=== PATIENT | female | born 1955 | race Caucasian/White ===

== ENCOUNTER 2023-08-21 09:21 | Outpatient (OUT) | payer MEDICARE, SELFPAY ==
[2023-08-21 09:49] LABS: Erythrocyte Sedimentation Rate 60 mm/hr (<=30)
[2023-08-21 10:36] LABS: C Reactive Protein <0.2 mg/dL (<=1.0)
== END 2023-08-21 09:22 | disposition home or self-care (01) ==
LOC: LAB 09:22
PROVIDERS: PCP Family Medicine; Visit Provider Registered Nurse
DX: M35.3 Polymyalgia rheumatica (principal); R76.0 Raised antibody titer; Z79.899 Other long term (current) drug therapy
CPT/HCPCS: 36415; 85652; 86140

== ENCOUNTER 2023-08-28 13:57 | Outpatient (OUT) | payer MEDICARE, SELFPAY ==
--- NOTE | 2023-08-28 14:07 | MM_ITS ---
Patient: MIKE ALFRED Exam Date: 08/28/2023 : 1955 Gender:F Ordering : DR ANTHONY SAINI M.D. Admission #: [id number] Family : DR Grace Dyer M.D. Order #: [id number] CLICK HERE TO VIEW EXAM RADIOLOGY REPORT PROCEDURE: MM TOMOSYNTHESIS SCREENING BI COMPARISON: MG MAMM SCREEN 3D FAITH CAD, 07/02/2022. MG MAMM SCREEN 3D FAITH CAD, 06/28/2021. MG MAMM SCREEN FAITH W CAD, 06/27/2020. MG MAMM RT UNI W CAD DIG, 01/18/2014. INDICATIONS: Screening Calculator Name NCI Breast Cancer Risk Assessment Tool 5 Year Breast Cancer Risk n/a% Lifetime Breast Cancer Risk n/a% Personal Breast Cancer Yes, Lt breast cancer, 2002 Personal Ovarian Cancer No Treatments Lt mastectomy, Radiation, Chemotherapy, Arimidex x 5 years Family Cancers Sister with breast cancer at age 45; Sister with ovarian cancer at age 63; Sister with uterine cancer at age 63. LOCATION: [facility] BREAST COMPOSITION: Scattered areas fibroglandular density. FINDINGS: DIAGNOSTIC CATEGORY 2--BENIGN FINDING: RIGHT BREAST: No significant suspicious finding. No significant change has occurred. LEFT BREAST: No significant suspicious finding. Scattered benign-appearing calcifications are present. No significant change has occurred. RECOMMENDATIONS: ROUTINE MAMMOGRAM AND CLINICAL EVALUATION IN 12 MONTHS. PLEASE NOTE: A NORMAL MAMMOGRAM DOES NOT EXCLUDE THE POSSIBILITY OF BREAST CANCER. A CLINICALLY SUSPICIOUS PALPABLE LUMP SHOULD BE BIOPSIED. Dictated by: Humble Patterson M.D. on 09/02/2023 at 12:56 Approved by: Humble Patterson M.D. on 09/02/2023 at 12:59
== END 2023-08-28 13:58 | disposition home or self-care (01) ==
LOC: MAMMO 13:57
PROVIDERS: PCP Family Medicine; Visit Provider Internal Medicine Hematology & Oncology
DX: Z12.31 Encounter for screening mammogram for malignant neoplasm of breast (principal); Z80.3 Family history of malignant neoplasm of breast; Z80.41 Family history of malignant neoplasm of ovary; Z80.49 Family history of malignant neoplasm of other genital organs
CPT/HCPCS: 77063; 77067

== ENCOUNTER 2023-12-03 10:53 | Outpatient (OUT) | payer MEDICARE, SELFPAY ==
--- OUTSIDE RECORDS SUMMARY | 2023-12-03 10:57 | XMS_ITS | CCD ---
Author Name Unknown Address [address] [place] [address] Organization [facility] Care Team Providers Care Chipper Name Role Phone Florinda Flowers Primary Care Provider [phone] MD Florinda Flowers Primary Care Provider ROSA Milton Attending Provider MD Ascencion Ortiz Attending Provider [phone] Teetee Rizvi Unavailable MD Florinda Flowers Primary Care Provider [phone] MD Teetee Rizvi Attending Provider Florinda Flowers Unavailable Unavailable Unavailable Dr. Florinda Flowers Primary Care Unav ailable Goyal, Dr. Lei Velázquez Referring Britt vailable Goyal, Dr. Lei Velázquez Attending Britt vailable Elizabeth Wyatt Unavailable Florinda Flowers Unavailable ANGEL, DR DAVIS Attending Unavailable ANGEL, DR DAVIS Admitting Unavailable LIONEL, DR FLORINDA Arriola Primary Care Unavailable ANGEL, DR DAVIS Consulting Unavailable YENY, DR CRUZ Attending Unavailable YENY, DR CRUZ Admitting Unavailable LIONEL, DR FLORINDA Arriola Primary Care Unavailable YENY, DR CRUZ Consulting Unavailable RUBI, DR EDWARD Mae Consulting Unavailable MISC, DR MONGE Admitting Unavailable MISC, DR MONGE Consulting Unavailable LIONEL, DR FLORINDA Arriola Primary Care Unavailable MISC, DR MONGE Attending Unavailable LIONEL, DR FLORINDA Arriola Consulting Unavailable FLOWERS, DR FLORINDA Arriola Attending Unavailable FLOWERS, DR FLORINDA Arriola Admitting Unavailable FLOWERS, DR FLORINDA Arriola Primary Care Unavailable MISC, DR MONGE Attending Unavailable MISC, DR MONGE Admitting Unavailable MISC, DR MONGE Consulting Unavailable LIONEL, DR FLORINDA Arriola Primary Care Unavailable GRILLIS ., DR REHANA Arriola Admitting Unavaila ble GRSERENA ., DR REHANA Arriola Consulting Unavaila ble FLOWERS, DR FLORINDA Arriola Primary Care Unavailable GRILLIS ., DR REHANA Arriola Attending Unavaila ble GRILLIS ., DR REHANA Arriola Consulting Unavaila ble GRCLAUDIOS ., DR REHANA Arriola Attending Unavaila ble FLOWERS, DR FLORINDA Arriola Primary Care Unavailable GRILLIS ., DR REHANA Arriola Admitting Unavaila ble ISABEL RAMIREZ Consulting Unavailable FILUTZGABRIELLE Arriola Consulting Unavailable GOYAL, DR LEI Nicole Attending Unavailable GOYAL, DR LEI Nicole Admitting Unavailable FLOWERS, DR FLORINDA Arriola Primary Care Unavailable GOYAL, DR LEI Nicole Consulting Unavailable Allergies Allergy Classification Reported Allergen(s) Allergy Type Date of Onset Reaction(s) Facility (17 sources) Acetaminophen / oxyCODONE; Translations: [Percocet TABS] Drug Allergy 5 GI Upset [facility] (4 sources) Sulfa Dyne Drug Allergy 2 Rash [facility] (6 sources) fentaNYL Drug Allergy 7 [facility] (6 sources) terbinafine Drug Allergy 7 Rash [facility] (2 sources) Penicillins Drug Allergy 1 [facility] (4 sources) Penicillin V Drug Allergy Unknown [facility] Other (1 source) sulfaSALAzine Drug Allergy Unknown [facility] Other (12 sources) terbinafine; Translations: [Lamisil] Drug Allergy 4 Unknown [facility] (1 source) oxyCODONE Drug Allergy 2 [facility] (1 source) Sulfonamides (Antibiotic) Allergy to substance 2 [facility] (2 sources) Penicillins; Translations: [Penicillins] Allergy to drug (finding) [facility] 600 DO Work Phone: (2 sources) Sulfur; Translations: [Sulfur] Drug Allergy [facility] 600 DO Work Phone: (2 sources) Lamisil CREA; Translations: [Lamisil CREA] Allergy to drug (finding) [facility] 600 DO Work Phone: (3 sources) Sulfonamide Drug allergy Unknown [facility] Other (8 sources) Penicillin; Translations: [penicillin] Drug Allergy Unknown [facility] (7 sources) Substance with sulfonamide structure and antibacterial mechanism of action (substance) Drug allergy Unknown [facility] Other (1 source) Acetaminophen / oxyCODONE Drug Allergy 4 [facility] (1 source) Sulfonamides (Antibiotic) Drug allergy (disorder) 4 [facility] (1 source) terbinafine Drug Allergy 7 Unknown [facility] Other Medications Current Medications Medication Drug Class(es) Dates Sig (Normalized) Sig (Original) 8 hr acetaminophen 650 mg extended release oral tablet (11 sources) take 2 tablets by mo uth every eight hours take 2 tablets by mo uth every eight hours as needed Acetaminophen ER 650 MG 2 tablets as nee ded Orally every 8 hrs Active cholecalciferol 0.05 mg oral capsule (1 source) Vitamin D take 1 capsule by mouth every twenty-four hours fluconazole 100 mg oral tablet (7 sources) Azole Antifungal Start: 12-24-19 23 take 1 tablet by mouth every twenty-four hours ondansetron 4 mg oral tablet (4 sources) Serotonin-3 Receptor Antagonist take 1 tablet by mouth three times daily as needed for nausea Zofran 4 MG 1 tablet Orally 3 times a day prn nausea Active predniSONE 20 mg oral tablet (18 sources) Start: 09-30-20 22 take 1 tablet by mouth every twelve hours predniSONE 20 MG 1 tablet Orally 2 times a day for 5 day(s) Sep, Active Start: 07-04-2022 take 5 mg by mouth once daily Prednisone Active 5 MG PO Daily July 04, 2022 12:00am Start: 02-01-2022 take 2 tablets by mo uth once daily predniSONE 5 MG Oral Tablet TAKE 2 TABLETS BY MOUTH ONCE DAILY OR DIRECTED Quantity: 60 Refills: 0 Ordered: 06-Jun-2022 DO Start : 01-Feb-2022 Active Vitamin D 50 MCG (1999) (10 sources) take 1 capsule by mouth once yonatan ly take 1 capsule by mouth once yonatan ly Vitamin D 50 MCG (1999) 1 capsule Orally Once a day Active zolpidem tartrate 10 mg oral tablet (14 sources) gamma-Aminobutyric Acid-ergic Agonist Start: 10-29-2023 take 1 tablet by mouth every twenty-four hours Ambien 10 MG 1 tablet at bedtime as needed Orally Once a day for 90 days Oct, Active Start: 08-05-2023 take 1 tablet by dalia th every twenty-four hours Start: 04-15-2023 take 1 tablet by dalia th every twenty-four hours Ambien 10 MG 1 tablet at bedtime as needed Orally Once a day for 90 days Apr, Active Start: 12-24-2022 take 1 tablet by dalia th every twenty-four hours Ambien 10 MG 1 tablet at bedtime as needed Orally Once a day for 90 days Dec, Active Start: 05-31-2022 take 1 tablet by dalia th at bedtime as needed Zolpidem Tartrate 10 MG Oral Tablet TAKE 1 TABLET AT BEDTIME NEEDED. Quantity: 0 Refills: 0 Ordered: 31-May-2022 DO Start : 31-May-2022 Active Start: 07-18-2012 take 1 tablet by mouth once da fer ZOLPIDEM 10 mg Tab Take 10 mg by mouth once daily. 0 07/18/2012 Active Comment on above: Take 10 mg by mouth once daily. Completed/Discontinued Medications Medication Drug Class(es) Dates Sig (Normalized) Sig (Original) alendronic acid 70 mg oral tablet (17 sources) Bisphosphonate Start: 02-16-2022 take 1 tablet by mouth every week Alendronate Sodium 70 MG Oral Tablet TAKE 1 TABLET BY MOUTH ONCE A WEEK Quantity: 12 Refills: 0 Ordered: 07-May-2022 DO Start : 16-Feb-2022 Active Start: 07-13-2012 ALENDRONATE 70 mg tablet amLODIPine 5 mg oral tablet (16 sources) Dihydropyridine Calcium Channel Rosario Start: 02-18-2018 take 1 tablet by mouth once daily amLODIPine Besylate 5 MG Oral Tablet Take 1 tablet daily Quantity: 90 Refills: 3 Ordered: 31-May-2022 DO Start : 31-May-2022 Active Comment on above: Take 5 mg by mouth. ergocalciferol 2000 unt oral tablet (3 sources) Provitamin D2 Compound Start: 06-09-2013 take 1 tablet by mouth once daily ergocalciferol, vitamin D2, 2,000 unit Tab Indications: Personal history of malignant neoplasm of breast , Creatinine elevation Take 1 tablet by mouth once daily. 30 tablet 3 06/09/2013 Active Comment on above: Take 1 tablet by dalia once daily. ezetimibe 10 mg / simvastatin 40 mg oral tablet (3 sources) HMG-CoA Reductase Inhibitor, Dietary Cholesterol Absorption Inhibitor Start: 08-23-2006 VYTORIN 10/40 10 MG-40 MG TAB Take one(1) tablet daily. 0 08/23/2006 Active Comment on above: Take one(1) tablet d aily. hydrALAZINE hydrochloride 50 mg oral tablet (16 sources) Arteriolar Vasodilator Start: 02-15-2018 take 1 tablet by mouth once daily hydrALAZINE HCl - 50 MG Oral Tablet Take 1 tablet daily Quantity: 90 Refills: 3 Ordered: 31-May-2022 DO Start : 31-May-2022 Active Comment on above: Take 50 mg by mouth. hydroCHLOROthiazide 12.5 mg / valsartan 160 mg oral tablet (3 sources) Thiazide Diuretic, Angiotensin 2 Receptor Rosario Start: 07-01-2012 DIOVAN HCT 160-12.5 mg per tablet metoprolol tartrate 25 mg oral tablet (18 sources) beta-Adrenergic Rosario Start: 04-27-2022 take 1 tablet by mouth twice daily Metoprolol Tartrate 25 MG Oral Tablet TAKE 1 TABLET TWICE DAILY. Quantity: 180 Refills: 3 Ordered: 27-Apr-2022 DO Start : 27-Apr-2022 Active Start: 08-21-2012 METOPROLOL TAR TRATE, SHORT ACTING, 50 mg tablet MULTIVITAMIN TAB (4 sources) Start: 10-09-2005 MULTIVITAMIN T AB Take one(1) tablet daily. 0 10/09/2005 Active Comment on above: Take one(1) tablet d aily. rosuvastatin calcium 40 mg oral tablet (15 sources) HMG-CoA Reductase Inhibitor Start: 12-09-2020 take 1 tablet by mouth once daily Rosuvastatin Calcium 40 MG Oral Tablet TAKE 1 TABLET DAILY. Quantity: 90 Refills: 3 Ordered: 20-Jul-2022 Lei Goyal MD Start : 31-May-2022 Active Problems Active Problems Problem Classification Problem Date Documented Da te Episodic/Chronic Anxiety disorders (4 sources) Anxiety disorder; Translations: [Anxiety disorder, unspecified] Onset: 08-08-2015 Chronic Cancer of breast (5 sources) Malignant neoplasm of upper-outer quadrant of female breast; Translations: [Malignant neoplasm of upper-outer quadrant of left female breast] 09-15-2012 Chronic Cancer of breast (9 sources) History of malignant neoplasm of breast; Translations: [Personal history of malignant neoplasm of breast] Onset: 08-13-2005 08-13-2005 Episodic Cardiac dysrhythmias (2 sources) Sinus bradycardia; Translations: [Other specified cardiac dysrhythmias] Episodic Chronic kidney disease (20 sources) Chronic kidney disease stage 3A ; Translations: [Chronic kidney disease, stage 3a] Chronic Disorders of lipid metabolism (14 sources) Hyperlipidemia; Translations: [Other and unspecified hyperlipidemia] Onset: 09-09-2014 Chronic Esophageal disorders (1 source) 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; Translations: [BARRETTS ESOPHAGUS W/O DYSPLASIA] Onset: 11-23-2022 Chronic Essential hypertension (20 sources) Essential hypertension; Translations: [Essential (primary) hypertension] Onset: 06-12-2022 Resolved: 06-12-2022 Chronic Genitourinary symptoms and ill-defined conditions (4 sources) Hematuria, unspecified; Translations: [Proteinuria, unspecified] Onset: 06-12-2022 Resolved: 06-12-2022 Episodic Immunizations and screening for infectious disease (20 sources) Other specified abnormal immunological findings in serum; Translations: [Contact with and (suspected) exposure to other viral communicable diseases] Onset: 06-12-2022 Resolved: 06-12-2022 Episodic Inflammatory diseases of female pelvic organs (4 sources) Acute vaginitis; Translations: [Acute vaginitis] Episodic Influenza (5 sources) Influenza due to other identified influenza virus with other respiratory manifestations; Translations: [Influenza due to Influenza A virus with upper respiratory signs] Episodic Miscellaneous mental health disorders (10 sources) Primary insomnia; Translations: [Primary insomnia] Chronic Osteoarthritis (5 sources) Unspecified osteoarthritis, unspecified site; Translations: [Osteoarthritis] Onset: 07-03-2022 Chronic Osteoporosis (4 sources) Primary osteoporosis; Translations: [Age-related osteoporosis without current pathological fracture] Chronic Other aftercare (2 sources) alf (current) use of non-steroidal anti-inflammatories (NSAID) Onset: 06-12-2022 Resolved: 06-12-2022 Episodic Other aftercare (1 source) Other salvage determiner (current) drug therapy; Translations: [OTH MEDICAL DATA ANALYST CURRENT DRUG THERAPY] Onset: 02-24-2023 Episodic Other circulatory disease (4 sources) Elevated blood-pressure reading without diagnosis of hypertension; Translations: [Elevated blood-pressure reading, without diagnosis of hypertension] Episodic Other connective tissue disease (1 source) History of repair of hip joint; Translations: [Presence of unspecified artificial hip joint] 09-17-2012 Chronic Other connective tissue disease (5 sources) Polymyalgia rheumatica; Translations: [POLYMYALGIA RHEUMATICA] Onset: 07-03-2022 Chronic Other connective tissue disease (1 source) Presence of left artificial knee joint; Translations: [PRESENCE LEFT ARTIFICIAL KNEE JOINT] Onset: 11-23-2022 Chronic Other connective tissue disease (4 sources) Polymyalgia rheumatica; Translations: [Polymyalgia rheumatica] Chronic Other connective tissue disease (4 sources) Neuralgia; Translations: [Neuralgia and neuritis, unspecified] Episodic Other endocrine disorders (4 sources) Hypoglycemia; Translations: [Hypoglycemia, unspecified] Onset: 05-28-2016 Chronic Other gastrointestinal disorders (4 sources) Abnormal feces; Translations: [Other fecal abnormalities] Episodic Other injuries and conditions due to external causes (4 sources) History of fall; Translations: [History of falling] Episodic Other lower respiratory disease (4 sources) Cough; Translations: [Cough, unspecified] Episodic Other nervous system disorders (4 sources) Skin sensation disturbance; Translations: [Other disturbances of skin sensation] Episodic Other nutritional; endocrine; and metabolic disorders (4 sources) Obesity; Translations: [Obesity, unspecified] Chronic Other nutritional; endocrine; and metabolic disorders (4 sources) Body mass index 30+ - obesity; Translations: [Body mass index (BMI) 30.0-30.9, adult] Chronic Other nutritional; endocrine; and metabolic disorders (6 sources) Overweight; Translations: [Overweight] Episodic Other nutritional; endocrine; and metabolic disorders (4 sources) Other symptoms and signs concerning food and fluid intake; Translations: [Nutritional status: food and fluid intake] Episodic Other upper respiratory infections (4 sources) Chronic sinusitis; Translations: [Chronic sinusitis, unspecified] Chronic Unclassified (3 sources) History of repair of hip joint; Translations: [Hip joint replacement by other means] 09-17-2012 Unclassified (1 source) CONTACT W/AND (SUSP) EXPOS COVID-19; Translations: [CONTACT W/AND (SUSP) EXPOS COVID-19] Onset: 11-26-2022 Past or Other Problems Problem Classification Problem Date Documented Da te Episodic/Chronic Allergic reactions (4 sources) Urticaria, unspecified; Translations: [Urticaria] Onset: 03-08-2014 Episodic Chronic kidney disease (3 sources) Chronic kidney disease Onset: 06-12-2022 Resolved: 06-12-2022 Diseases of mouth; excluding dental (4 sources) Disorder of salivary gland; Translations: [Other diseases of salivary glands] Onset: 09-09-2014 Episodic Mycoses (9 sources) Candidiasis of skin and nail; Translations: [Tinea cruris] Onset: 03-24-2014 Episodic Open wounds of head; neck; and trunk (4 sources) Open wound of anterior abdominal wall with complication; Translations: [Unspecified open wound of abdominal wall, unspecified quadrant without penetration into peritoneal cavity, initial encounter] Onset: 10-01-2005 10-01-2005 Episodic Other and unspecified benign neoplasm (4 sources) Personal history of colonic polyps; Translations: [PERSONAL HISTORY OF COLONIC POLYPS] Onset: 2022 Episodic Other and unspecified benign neoplasm (1 source) Benign neoplasm of sigmoid colon; Translations: [BENIGN NEOPLASM OF SIGMOID COLON] Onset: 11-23-2022 Episodic Other bone disease and musculoskeletal deformities (4 sources) Bone density finding; Translations: [Other specified disorders of bone density and structure, unspecified site] Onset: 03-08-2014 Episodic Other screening for suspected conditions (not mental disorders or infectious disease) (4 sources) Encounter for screening mammogram for malignant neoplasm of breast; Translations: [ENC SCR MAMMO MALIG NEOPLASM BREAST] Onset: 07-02-2022 Episodic Residual codes; unclassified (1 source) Acquired absence of left breast and nipple; Translations: [ACQUIRED ABSENCE LT BREAST AND NIPPLE] Onset: 11-23-2022 Episodic Residual codes; unclassified (1 source) Family history of malignant neoplasm of breast; Translations: [FAMILY HX MALIG NEOPLASM OF BREAST] Onset: 07-03-2022 Episodic Residual codes; unclassified (1 source) Family history of malignant neoplasm of ovary; Translations: [FAM HX MALIGNANT NEOPLASM OVARY] Onset: 07-03-2022 Episodic Residual codes; unclassified (1 source) Family history of malignant neoplasm of other genital organs; Translations: [FAM HX MALIG NEOPLSM OTH GENIT ORGN] Onset: 07-03-2022 Episodic Residual codes; unclassified (4 sources) Postmenopausal state; Translations: [Asymptomatic menopausal state] Onset: 08-05-2015 Episodic Residual codes; unclassified (4 sources) Insomnia; Translations: [Insomnia, unspecified] Onset: 03-08-2014 Episodic Residual codes; unclassified (4 sources) Family history of breast cancer; Translations: [Family history of malignant neoplasm of breast] Onset: 03-08-2014 Episodic Screening and history of mental health and substance abuse codes (3 sources) Ex-smoker; Translations: [Personal history of tobacco use] Onset: 11-23-2022 Episodic Spondylosis; intervertebral disc disorders; other back problems (4 sources) Disorder of sacrococcygeal spine; Translations: [Sacrococcygeal disorders, not elsewhere classified] Onset: 05-19-2018 Episodic Results Test Name Value Interpretation Reference Range Facility ANTICARDIOLIPIN AB (AKASH) IGA /IGG/IGMon 02-21-2023 Anticardiolipin Ab,IgA,Qn <9 Normal 0-11 [facility] Comment on above: Result Comment: Nega tive: <12 Indeterminate: 12 - 20 Low-Med Positive: >20 - 80 High Positive: >80 Performed By: #### A CAQUAN #### [facility] [address] [address] [address] Myrna Antony Anticardiolipin Ab,IgG,Qn <9 Normal 0-14 [facility] Comment on above: Result Comment: Nega tive: <15 Indeterminate: 15 - 20 Low-Med Positive: >20 - 80 High Positive: >80 Performed By: #### A CAQUAN #### [facility] [address] [address] [address] Myrna Antony Anticardiolipin Ab,IgM,Qn 22 MPL U/mL Critically high 0-12 [facility] Comment on above: Result Comment: Nega tive: <13 Indeterminate: 13 - 20 Low-Med Positive: >20 - 80 High Positive: >80 Performed By: #### A BHAVESH #### [facility] [address] [place] [address] Dr. Myrna Antony CRPon 02-20-2023 CRP [Mass/Vol] mg/L Normal <=1.0 [facility] Comment on above: Performed By: #### C RP #### [facility] [address] [place] [address] Dr. Myrna Antony SED RATE WESTERGRENon 2022 SED RATE 32 mm/hr Critically high <=30 [facility] Comment on above: Performed By: #### A BHAVESH #### [facility] [address] [place] [address] Dr. Myrna Antony CBC AUTO DIFFon 12-24-2022 BASO # 0.0 103/ul Normal 0.0-0.1 [facility] Comment on above: Performed By: #### C BC #### [facility] [address] [place] [address] Dr. Myrna Antony Basophils/100 WBC (Bld) 0.5 % Normal 0.2-2.0 [facility] Comment on above: Performed By: #### C BC #### [facility] [address] [place] [address] Dr. Myrna Antony EO # 0.3 103/ul Normal 0.0-0.7 [facility] Comment on above: Performed By: #### C BC #### [facility] [address] [place] [address] Dr. Myrna Antony Eosinophils/100 WBC (Bld) 3.9 % Normal 0.9-7.0 [facility] Comment on above: Performed By: #### C BC #### [facility] [address] [place] [address] Dr. Myrna Antony Erythrocyte distribution width (RBC) [Ratio] 13.6 % Normal 11.0-15.0 [facility] Comment on above: Performed By: #### C BC #### [facility] [address] [place] [address] Dr. Myrna Antony Hematocrit (Bld) [Volume fraction] 40.4 % Normal 36.0-48.0 [facility] Comment on above: Performed By: #### C BC #### [facility] [address] [place] [address] Dr. Myrna Antony Hemoglobin (Bld) [Mass/Vol] 13.5 g/dL Normal 12.0-16.0 [facility] Comment on above: Performed By: #### C BC #### [facility] [address] [place] [address] Dr. Myrna Antony IG # 0.02 10e3/ul Normal 0.00-0.03 [facility] Comment on above: Performed By: #### C BC #### [facility] [address] [place] [address] Dr. Myrna Antony IG % 0.2 % Normal 0.0-0.5 [facility] Comment on above: Performed By: #### C BC #### [facility] [address] [place] [address] Dr. Myrna Antony LYMPH # 1.5 103/ul Normal 1.2-3.8 [facility] Comment on above: Performed By: #### C BC #### [facility] [address] [place] [address] Dr. Myrna Antony Lymphocytes/100 WBC (Bld) 19.2 % Critically low 20.5-60.0 [facility] Comment on above: Performed By: #### C BC #### [facility] [address] [place] [address] Dr. Myrna Antony MANUAL DIFF REQ NO Normal [facility] Comment on above: Performed By: #### C BC #### [facility] [address] [place] [address] Dr. Myrna Antony MCH (RBC) [Entitic mass] 29.7 pg Normal 26.7-34.0 [facility] Comment on above: Performed By: #### C BC #### [facility] [address] [address] [address] Myrna Antony MCHC (RBC) [Mass/Vol] 33.4 g/dL Normal 29.9-35.2 [facility] Comment on above: Performed By: #### C BC #### [facility] [address] [address] [address] Myrna Antony MCV (RBC) [Entitic vol] 89.0 fL Normal 81.0-99.0 [facility] Comment on above: Performed By: #### C BC #### [facility] [address] [place] [address] Dr. Myrna Antony MONO # 0.8 103/ul Normal 0.3-0.8 [facility] Comment on above: Performed By: #### C BC #### [facility] [address] [place] [address] Dr. Myrna Antony Monocytes/100 WBC (Bld) 10.2 % Normal 1.7-12.0 [facility] Comment on above: Performed By: #### C BC #### [facility] [address] [place] [address] Dr. Myrna Antony NEUT # 5.3 103/ul Normal 1.4-6.5 [facility] Comment on above: Performed By: #### C BC #### [facility] [address] [place] [address] Dr. Myrna Antony Neutrophils/100 WBC (Bld) 66.0 % Normal 43.0-75.0 [facility] Comment on above: Performed By: #### C BC #### [facility] [address] [place] [address] Dr. Myrna Antony Platelet mean volume (Bld) [Entitic vol] 9.2 fL Critically low 9.5-13.5 [facility] Comment on above: Performed By: #### C BC #### [facility] [address] [place] [address] Dr. Myrna Antony PLT 277 103/ul Normal 150-450 [facility] Comment on above: Performed By: #### C BC #### [facility] [facility] [address] [address] [address] Myrna Antony RBC 4.54 106/ul Normal 4.20-5.40 [facility] Comment on above: Performed By: #### C BC #### [facility] [address] [address] [address] Myrna Antony WBC 8.0 103/ul Normal 4.0-11.0 [facility] Comment on above: Performed By: #### C BC #### [facility] [address] [address] [address] Myrna Antony LIPID PROFILEon 12-24-2022 CHOL-HDL RATIO NORM SEE BELOW Normal [facility] Comment on above: Result Comment: 3.3 - 4.4 LOW RISK 4.4 - 7.1 AVERAGE RISK 7.1 - 11.0 MODERATE RISK >11.0 HIGH RISK Performed By: #### A CAQUAN #### [facility] [address] [place] [address] Dr. Myrna Antony Cholesterol [Mass/Vol] 192 mg/dL Normal <=200 [facility] Comment on above: Performed By: #### A CAQUAN #### [facility] [address] [address] [address] Myrna Antony Cholesterol in HDL [Mass/Vol] 69 mg/dL Critically high 40-60 [facility] Comment on above: Performed By: #### A CAQUAN #### [facility] [address] [address] [address] Myrna Antony Cholesterol in LDL [Mass/Vol] 99.8 mg/dL Normal [facility] Comment on above: Performed By: #### A CAQUAN #### [facility] [address] [address] [address] Myrna Antony Cholesterol.total/Mary sterol in HDL [Mass ratio] 2.8 {ratio} Normal [facility] Comment on above: Performed By: #### A CAQUAN #### [facility] [address] [address] [address] Myrna Antony HDL NORMAL > or = 60 mg/dl - LO W CARDIOVASCULAR RISK <40 mg/dl - HIGH CARDIOVASCULAR RISK Normal [facility] Comment on above: Performed By: #### A CAQUAN #### [facility] [address] [address] [address] Myrna Antony LDL CALC NORMAL SEE BELOW Normal [facility] Comment on above: Result Comment: <100 mg/dl OPTIMAL 100 - 129 mg/dl NEAR OR ABOVE OPTIMAL 130 - 159 mg/dl BORDERLINE HIGH 160 - 189 mg/dl HIGH >190 mg/dl VERY HIGH Performed By: #### A CAQUAN #### [facility] [address] [address] [address] Myrna Antony Triglyceride [Mass/Vol] 116 mg/dL Normal <=150 T [facility] Comment on above: Performed By: #### A CAQUAN #### [facility] [address] [address] [address] Myrna Antony VLDL CALC 23.2 mg/dL Normal [facility] Comment on above: Performed By: #### A CAQUAN #### [facility] [address] [address] [address] Myrna Antony PROF 14(COMP METB)on 023 Albumin [Mass/Vol] 3.9 g/dL Normal 3.4-5.0 [facility] Comment on above: Performed By: #### A CAQUAN #### [facility] [address] [address] [address] Myrna Antony Albumin/Globulin [Mass ratio] 1.1 {ratio} Normal [facility] Comment on above: Performed By: #### A CAQUAN #### [facility] [address] [address] [address] Myrna Antony ALP [Catalytic activity/Vol] 57 U/L Normal 46-116 [facility] Comment on above: Performed By: #### A CAQUAN #### [facility] [address] [address] [address] Myrna Antony ALT [Catalytic activity/Vol] 39 U/L Normal 14-59 [facility] Comment on above: Performed By: #### A CAQUAN #### [facility] [address] [address] [address] Myrna Antony Anion gap [Moles/Vol] 12.7 mmol/L Normal Th [facility] Comment on above: Performed By: #### A CAQUAN #### [facility] [address] [address] [address] Myrna Antony AST [Catalytic activity/Vol] 32 U/L Normal 15-37 [facility] Comment on above: Performed By: #### A CAQUAN #### [facility] [address] [address] [address] Myrna Antony Bilirubin [Mass/Vol] 1.4 mg/dL Critically high 0.2-1.0 [facility] Comment on above: Performed By: #### A CAQUAN #### [facility] [address] [address] [address] Myrna Antony Calcium [Mass/Vol] 9.6 mg/dL Normal 8.5-10.1 [facility] Comment on above: Performed By: #### A CAQUAN #### [facility] [address] [address] [address] Myrna Antony Chloride [Moles/Vol] 103 mmol/L Normal 98-107 [facility] Comment on above: Performed By: #### A CAQUAN #### [facility] [address] [address] [address] Myrna Antony CO2 [Moles/Vol] 26.5 mmol/L Normal 21.0-32.0 [facility] Comment on above: Performed By: #### A CAQUAN #### [facility] [address] [address] [address] Myrna Antony Creatinine [Mass/Vol] 1.06 mg/dL Critically high 0.55-1.02 [facility] Comment on above: Performed By: #### A CAQUAN #### [facility] [address] [address] [address] Myrna Antony EGFR-AF SAMOAN >60 Normal >=60 [facility] Comment on above: Performed By: #### A CAQUAN #### [facility] [address] [address] [address] Myrna Antony EGFR-NON AF SAMOAN 52 mL/min/1.73m2 Critically low >=60 [facility] Comment on above: Performed By: #### A CAQUAN #### [facility] [address] [address] [address] Myrna Antony Globulin (S) [Mass/Vol] 3.6 g/dL Normal [facility] Comment on above: Performed By: #### A CAQUAN #### [facility] [address] [address] [address] Myrna Antony Glucose [Mass/Vol] 104 mg/dL Normal 74-106 [facility] Comment on above: Performed By: #### A CABONNIEAN #### [facility] [address] [address] [address] Myrna Antony Potassium [Moles/Vol] 4.2 mmol/L Normal 3.5-5.1 [facility] Comment on above: Performed By: #### A CAQUAN #### [facility] [address] [address] [address] Myrna Antony Protein [Mass/Vol] 7.5 g/dL Normal 6.4-8.2 [facility] Comment on above: Performed By: #### A CABONNIEAN #### [facility] [address] [address] [address] Myrna Antony Sodium [Moles/Vol] 138 mmol/L Normal 136-145 [facility] Comment on above: Performed By: #### A CAQUAN #### [facility] [address] [address] [address] Myrna Antony Urea nitrogen [Mass/Vol] 29.0 mg/dL Critically high 7.0-18.0 [facility] Comment on above: Performed By: #### A CAQUAN #### [facility] [address] [address] [address] Myrna Antony Urea nitrogen/Creatinine [Mass ratio] 27.4 mg/mg Normal [facility] Comment on above: Performed By: #### A CAQUAN #### [facility] [address] [address] [address] Myrna Antony Covid-19 PCR (CVDTB)on 11-04 SARS-CoV-2 (COVID-19) RNA NEO+probe Ql (Unsp spec) Not detected Normal NOT DETECTED [facility] Comment on above: Result Comment: This test is not yet approved or cleared by the [place] FDA. When there are no FDA-approved or cleared tests available, and other criteria are met, FDA can make tests available under an emergency access mechanism called an Emergency Use Authorization (EUA). The EUA for this test is supported by the [employer] of Health and Human Service's (HHS's) declaration that circumstances exist to justify the emergency use of in vitro diagnostics for the detection and/or diagnosis of the virus that causes COVID-19. This EUA will remain in effect (meaning this test can be used) for the duration of the COVID-19 declaration justifying emergency of IVDs, unless it is terminated or revoked by FDA (after which the test may no longer be used). When diagnostic testing is negative, the possibility of a false negative should be considered in the context of a patient's recent exposures and the presence of clinical signs and symptoms consistent with SARS-CoV-2. Performed By: #### C VDTBH #### [facility] [address] [place] [address] Dr. Myrna Antony ANTICARDIOLIPIN AB (AKASH) IGA /IGG/IGMon 11-01-2022 Anticardiolipin Ab,IgA,Qn <9 Normal 0-11 [facility] Comment on above: Result Comment: Nega tive: <12 Indeterminate: 12 - 20 Low-Med Positive: >20 - 80 High Positive: >80 Performed By: #### A CAQUAN #### [facility] [address] [address] [address] Myrna Antony Anticardiolipin Ab,IgG,Qn <9 Normal 0-14 [facility] Comment on above: Result Comment: Nega tive: <15 Indeterminate: 15 - 20 Low-Med Positive: >20 - 80 High Positive: >80 Performed By: #### A CAQUAN #### [facility] [address] [place] [address] Dr. Myrna Antony Anticardiolipin Ab,IgM,Qn 57 MPL U/mL Critically high 0-12 [facility] Comment on above: Result Comment: Nega tive: <13 Indeterminate: 13 - 20 Low-Med Positive: >20 - 80 High Positive: >80 Performed By: #### A CAQUAN #### [facility] [address] [place] [address] Dr. Myrna Antony CRPon 10-31-2022 CRP [Mass/Vol] mg/L Normal <=1.0 [facility] Comment on above: Performed By: #### C RP #### [facility] [address] [place] [address] Dr. Myrna Antony SED RATE WESTERGRENon 2021 SED RATE 39 mm/hr Critically high <=30 [facility] Comment on above: Performed By: #### S EDR #### [facility] [address] [place] [address] Dr. Myrna Antony COVID/FLU RT-PCRon SARS-CoV-2 (COVID-19) RNA NEO+probe Ql (Unsp spec) Negative [employer] Other COVID/FLU RT-PCR Positive [employer] Other COVID/FLU RT-PCR Negative [employer] Other LIPID PROFILEon 07-30-2022 CHOL-HDL RATIO NORM SEE BELOW Normal [facility] Comment on above: Result Comment: 3.3 - 4.4 LOW RISK 4.4 - 7.1 AVERAGE RISK 7.1 - 11.0 MODERATE RISK >11.0 HIGH RISK Performed By: #### A MALLORYAN #### [facility] [address] [place] [address] Dr. Myrna Antony Cholesterol [Mass/Vol] 177 mg/dL Normal <=200 [facility] Comment on above: Performed By: #### A CAQUAN #### [facility] [address] [place] [address] Dr. Myrna Antony Cholesterol in HDL [Mass/Vol] 70 mg/dL Critically high 40-60 [facility] Comment on above: Performed By: #### A CAQUAN #### [facility] [address] [address] [address] Myrna Antony Cholesterol in LDL [Mass/Vol] 92.4 mg/dL Normal [facility] Comment on above: Performed By: #### A CAQUAN #### [facility] [address] [address] [address] Myrna Antony Cholesterol.total/Mary sterol in HDL [Mass ratio] 2.5 {ratio} Normal [facility] Comment on above: Performed By: #### A CAQUAN #### [facility] [address] [address] [address] Myrna Antony HDL NORMAL > or = 60 mg/dl - LO W CARDIOVASCULAR RISK <40 mg/dl - HIGH CARDIOVASCULAR RISK Normal [facility] Comment on above: Performed By: #### A CAQUAN #### [facility] [address] [address] [address] Myrna Antony LDL CALC NORMAL SEE BELOW Normal [facility] Comment on above: Result Comment: <100 mg/dl OPTIMAL 100 - 129 mg/dl NEAR OR ABOVE OPTIMAL 130 - 159 mg/dl BORDERLINE HIGH 160 - 189 mg/dl HIGH >190 mg/dl VERY HIGH Performed By: #### A CABONNIEAN #### [facility] [address] [address] [address] Myrna Antony Triglyceride [Mass/Vol] 73 mg/dL Normal <=150 [facility] Comment on above: Performed By: #### A CAQUAN #### [facility] [address] [address] [address] Myrna Antony VLDL CALC 14.6 mg/dL Normal [facility] Comment on above: Performed By: #### A CAQUAN #### [facility] [address] [place] [address] Dr. Myrna Antony SGAnalilia 07-30-2022 AST [Catalytic activity/Vol] 34 U/L Normal 15-37 [facility] Comment on above: Performed By: #### A CALISETTE #### [facility] [address], [place] [address] [address]. Myrna Antony [facility] 07-30-2022 ALT [Catalytic activity/Vol] 44 U/L Normal 14-59 [facility] Comment on above: Performed By: #### A BHAVESH #### [facility] [address], [place] [address] Dr. Myrna Antony Office Visit (Cardiology)on 07-20-2022 Follow-up visit Diagnoses/Problems Assessed Essential hypertension (401.9) (I10) Hyperlipidemia, unspecified (272.4) (E78.5) Sinus bradycardia (427.89) (R00.1) Former smoker (V15.82) (Z87.891) Overweight (278.02) (E66.3) Orders Hyperlipidemia, unspecified Renew: Rosuvastatin Calcium 40 MG Oral Tablet; TAKE 1 TABLET DAILY ALT - Alanine Aminotransferase, Serum; Status:Active; Requested for:[id number]; AST; Status:Active; Requested for:[id number]; Lipid Panel; Status:Active; Requested for:[id number]; SocHx: Former smoker Tobacco Use Screening; Status:Complete; Done: [id number] Patient Instructions Please bring all medicines, vitamins, and herbal supplements with you when you come to the office. Prescriptions will not be filled unless you are compliant with your follow up appointments or have a follow up appointment scheduled as per instruction of your physician. Refills should be requested at the time of your visit. Follow up in 1 year. Chief Complaint overdue HTN Patient is in the office for follow-up for the problems noted below. She has not been seen in the office for 2 years. She has remained stable from a cardiac standpoint and her blood pressure is under control. She has tolerated metoprolol and amlodipine fairly well. She is also on hydralazine with no side effects. She has been following with rheumatology and recently had kidney biopsy because of mildly abnormal renal function and suspicion of lupus. She has not been contacted on the results. Blood work that her she has done recently revealed that her kidney function is completely normal. Reassurances were provided. Her weight remains above target and she was advised to continue to work on her weight. ASSESSMENT AND PLAN: 1. Hypertension, on medical therapy, which will be left unchanged for the time being. She is on amlodipine, hydralazine and metoprolol. 2. Hyperlipidemia, on statin therapy with rosuvastatin 40 mg daily, due for lipid profile which is ordered 3. Overweight. Encouraged the patient to drop her weight further with diet and exercise. Patient refused to be weighed in the office but she indicated weighing 185 pounds at home which seems to be identical to her weight 2 years ago 4. History of arthritis for which she is on prednisone managed by rheumatology Lei Goyal MD, [facility] Active Problems Problems Essential hypertension (401.9) (I10) Hyperlipidemia, unspecified (272.4) (E78.5) Overweight (278.02) (E66.3) Sinus bradycardia (427.89) (R00.1) Surgical History Problems History of Back surgery History of Breast surgery History of Colonoscopy History of Hip replacement History of Hysterectomy History of Knee replacement History of Knee surgery History of Mastectomy Breast surgery Current Meds Medication NameInstruction Alendronate Sodium 70 MG Oral TabletTAKE 1 TABLET BY MOUTH ONCE A WEEK amLODIPine Besylate 5 MG Oral TabletTake 1 tablet daily hydrALAZINE HCl - 50 MG Oral TabletTake 1 tablet daily Metoprolol Tartrate 25 MG Oral TabletTAKE 1 TABLET TWICE DAILY. predniSONE 5 MG Oral TabletTAKE 2 TABLETS BY MOUTH ONCE DAILY OR DIRECTED Rosuvastatin Calcium 40 MG Oral TabletTAKE 1 TABLET DAILY. Zolpidem Tartrate 10 MG Oral TabletTAKE 1 TABLET AT BEDTIME NEEDED. Allergies Medication Lamisil CREA Recorded By: Irma Kyle; 12/03/2021 8:32:38 AM Penicillins Recorded By: Irma Kyle; 12/03/2021 8:32:38 AM Percocet TABS Recorded By: Irma Kyle; 12/03/2021 8:32:38 AM Sulfur Recorded By: Irma Kyle; 12/03/2021 8:32:38 AM Family History Father Family history of hypertension (V17.49) (Z82.49) Sister Family history of acute myocardial infarction (V17.3) (Z82.49) Family history of hypertension (V17.49) (Z82.49) Family history of H/O heart artery stent Brother Family history of hypertension (V17.49) (Z82.49) Social History Problems Alcohol use (V49.89) (Z72.89) Former smoker (V15.82) (Z87.891) No caffeine use No illicit drug use Review of Systems Constitutional: not feeling tired. Cardiovascular: no intermittent leg claudication and as noted in HPI. Respiratory: no cough and no shortness of breath. Gastrointestinal: no change in bowel habits and no blood in stools. Integumentary: no skin rashes. Neurological: no seizures and no frequent falls. All other systems have been reviewed and are negative for complaint. Vitals Vital Signs Recorded: [id number] 01:49PM Heart Rate66, L Radial [id number], RUE, Sitting [id number], RUE, Sitting Height5 ft 6 in Tobacco Useb) No PHQ-2 #1. Over the last 2 weeks have you felt down, depressed or hopeless? (If yes, answer PHQ-9 below)No PHQ-2 #2. Over the last 2 weeks have you felt little interest or pleasure in doing things? (If yes, answer PHQ-9 below)No Falls Screening (Age 18+)a) No falls within the last year Physical Exam Constitutional: alert and in no acute distress. Neck: neck is supple, symmetric, trachea midl (more content not included)... Normal [employer] Tobacco Screening.on 022 Adult depression screening assessment No [facility] BreathalEyes DO Work Phone: Fall risk assessment a) No falls within the last year [facility] SalonBookr 600 DO Work Phone: Tobacco use status [facility] b) No [facility] SalonBookr 600 DO Work Phone: WADE with Reflexon 07-04-2022 WADE with Reflex Negative Normal Negative [facility] Comment on above: Order Comment: Reaso n for Exam Chronic kidney disease, stage 3a;Hematuria, unspecified;Prot Result Comment: Perf ormed at: CB - [facility] [address] [id number] [employer] Laboratory Director: Cody Williamson PhD, Phone: [phone] Performed By: #### C H50, C4, C3 #### [facility] , #### ESR, CBC #### [facility] [address] [place] [address] Activated partial thrombopla stin time (aPTT) in platelet poor plasma by coagulation aOrdered By: Teetee Rizvi on 07-04-2022 aPTT Coag (PPP) [Time] 28.8 s 25.1-36.5 [facility] Albumin [Mass/volume] in Ser um or PlasmaOrdered By: Teetee Rizvi on 07-04-2022 Albumin [Mass/Vol] 3.7 g/dL 3.2-5.5 [facility] Antimyeloperoxidase (MPO) Ab son 07-04-2022 Antimyeloperoxidase (MPO) Abs <0.2 Normal 0.0-0.9 [facility] Comment on above: Order Comment: Reaso n for Exam Chronic kidney disease, stage 3a;Hematuria, unspecified;Prot Performed By: #### C H50, C4, C3 #### [facility] , #### ESR, CBC #### [facility] [address] [place] [address] [place] Automated erythrocytes count in urine sediment (number/area)Ordered By: Teetee Rizvi on 07-04-2022 RBC Auto (Urine sed) [#/Area] 5-9 [HPF] 0-4 [facility] Automated leukocytes count i n urine sediment (number/area)Ordered By: Teetee Rizvi on 07-04-2022 WBC Auto (Urine sed) [#/Area] 1-2 [HPF] 0-4 [facility] Bilirubin Test strip Ql (U)O rdered By: Teetee Rizvi on 07-04-2022 Bilirubin Ql (U) Negative Negative [facility] Blood hemoglobin measurement (mass/volume)Ordered By: Teetee Rizvi on 07-04-2022 Hemoglobin (Bld) [Mass/Vol] 12.6 g/dL 11.8-15.[address] [facility] [address] guided needle placementon 07-04-2022 CT guided needle placement [facility] [place] [address] [place] [address] CT Scan Report Signed Patient: Uzma Alfred MR#: [id number] 6 : 1955 Acct:[id number] Age/Sex: 66 / F ADM Date: 07/04/22 Loc: CT Room: Type: [facility] Attending Dr: Teetee Rizvi MD Copies to: Teetee Rizvi MD Ordering Provider: Teetee Rizvi MD Date of Service: 07/04/22 CT/CT guided needle placement: N18.31, R31.9, R80.9, Z79.1, R76.8 CT-guided random core biopsy of the kidney. HISTORY: Hematuria. Proteinuria Informed consent was obtained. The skin entry site was localized with CT. The skin at site was prepped and draped in sterile fashion with local lidocaine administered. 17 gauge trocar was administered into the inferior pole the RIGHT kidney with CT guidance. 3 core biopsy samples obtained. Localized bleeding identified. This is stable. Adequate hemostasis. No immediate complications. Core biopsy samples sent to pathology for further assessment. Patient discharged in satisfactory condition. CT/CT guided needle placement IMPRESSION: Successful CT-guided random renal core biopsy. Impression dictated by: Luis Figueredo M.D.07/04/2022 2:08 PM Dictation Location: [place] [address] Transcribed By: [facility] 07/04/22 140 Dictated By: Luis Figueredo DO 07/04/221401 Signed By: 07/04/22 1408 Normal [facility] Color Auto (U)Ordered By: Cesar Rizvi on 07-04-2022 Color (U) Yellow Yellow [facility] Complement C3on 07-04-2022 Complement C3 144 mg/dL Normal 82-167 [facility] Comment on above: Order Comment: Reaso n for Exam Chronic kidney disease, stage 3a;Hematuria, unspecified;Prot Result Comment: Perf ormed at: - [facility] [address] [id number] [employer] Laboratory Director: Cody Williamson PhD, Phone: [phone] Performed By: #### C H50, C4, C3 #### [facility] , #### ESR, CBC #### [facility] [address] Complement C4on 07-04-2022 Complement C4 22 mg/dL Normal 12-38 [facility] Comment on above: Order Comment: Reaso n for Exam Chronic kidney disease, stage 3a;Hematuria, unspecified;Prot Performed By: #### C H50, C4, C3 #### [facility] , #### ESR, CBC #### [address] Comprehensive Metabolic Pane raffaele 07-04-2022 Albumin [Mass/Vol] 3.7 g/dL Normal 3.2-5.5 [facility] Comment on above: Order Comment: Reaso n for Exam Chronic kidney disease, stage 3a;Hematuria, unspecified;Prot PER RICK AT DR'S OFFICE [place] TO DO LABS TODAY. Performed By: #### C MP, PTH, [id number], URIC #### [address] Albumin/Globulin [Mass ratio] 1.2 {ratio} Normal [facility] Comment on above: Order Comment: Reaso n for Exam Chronic kidney disease, stage 3a;Hematuria, unspecified;Prot PER RICK AT DR'S OFFICE [place] TO DO LABS TODAY. Performed By: #### C MP, PTH, [id number], URIC #### [address] ALP [Catalytic activity/Vol] 61 U/L Normal 32-92 [facility] Comment on above: Order Comment: Reaso n for Exam Chronic kidney disease, stage 3a;Hematuria, unspecified;Prot PER RICK AT DR'S OFFICE [place] TO DO LABS TODAY. Performed By: #### C MP, PTH, [id number], URIC #### [place] [address] [place] ALT [Catalytic activity/Vol] 20 U/L Normal 10-60 [facility] Comment on above: Order Comment: Reaso n for Exam Chronic kidney disease, stage 3a;Hematuria, unspecified;Prot PER RICK AT DR'S OFFICE OK TO DO LABS TODAY. Performed By: #### C MP, PTH, [id number], URIC #### [facility] [address] [id number] [facility] Anion gap [Moles/Vol] 13.7 mmol/L Normal 6.0-15.0 [facility] Comment on above: Order Comment: Reaso n for Exam Chronic kidney disease, stage 3a;Hematuria, unspecified;Prot PER RICK AT DR'S OFFICE OK TO DO LABS TODAY. Performed By: #### C MP, PTH, [id number], URIC #### [facility] [address] AST [Catalytic activity/Vol] 22 U/L Normal 10-42 [facility] Comment on above: Order Comment: Reaso n for Exam Chronic kidney disease, stage 3a;Hematuria, unspecified;Prot PER RICK AT DR'S OFFICE OK TO DO LABS TODAY. Performed By: #### C MP, PTH, [id number], URIC #### [address] Bilirubin [Mass/Vol] 1.6 mg/dL High 0.3-1.2 [facility] Comment on above: Order Comment: Reaso n for Exam Chronic kidney disease, stage 3a;Hematuria, unspecified;Prot PER RICK AT DR'S OFFICE OK TO DO LABS TODAY. Result Comment: Samp les from patients who have taken Naproxen have shown spurious elevation in Total Bilirubin levels. A metabolite of Naproxen, O-desmethylnaproxen, has been shown to interfere with the Jendrassik-Grof method for measuring Total Bilirubin. Performed By: #### C MP, PTH, [id number], URIC #### [facility] [address] [id number] [facility] Calcium [Mass/Vol] 8.9 mg/dL Normal 8.2-10.2 [facility] Comment on above: Order Comment: Reaso n for Exam Chronic kidney disease, stage 3a;Hematuria, unspecified;Prot PER RICK AT DR'S OFFICE OK TO DO LABS TODAY. Performed By: #### C MP, PTH, [id number], URIC #### [facility] [address] [id number] [place] Chloride [Moles/Vol] 106 mmol/L Normal 95-114 [facility] Comment on above: Order Comment: Reaso n for Exam Chronic kidney disease, stage 3a;Hematuria, unspecified;Prot PER RICK AT DR'S OFFICE OK TO DO LABS TODAY. Performed By: #### C MP, PTH, [id number], URIC #### [facility] [address] CO2 [Moles/Vol] 23.1 mmol/L Normal 22.0-30.0 [facility] Comment on above: Order Comment: Reaso n for Exam Chronic kidney disease, stage 3a;Hematuria, unspecified;Prot PER RICK AT DR'S OFFICE OK TO DO LABS TODAY. Performed By: #### C MP, PTH, [id number], URIC #### [facility] [address] Creatinine [Mass/Vol] 0.76 mg/dL Normal 0.44-1.03 [facility] Comment on above: Order Comment: Reaso n for Exam Chronic kidney disease, stage 3a;Hematuria, unspecified;Prot PER RICK AT DR'S OFFICE OK TO DO LABS TODAY. Performed By: #### C MP, PTH, [id number], URIC #### [facility] [address] [place] [address] [place] Creatinine Clr Calc Pharmacy 76.30 [facility] Comment on above: Order Comment: Reaso n for Exam Chronic kidney disease, stage 3a;Hematuria, unspecified;Prot PER RICK AT DR'S OFFICE OK TO DO LABS TODAY. Performed By: #### C MP, PTH, [id number], URIC #### [facility] [address] Estimated GFR ( Lexis > 60 [facility] Comment on above: Order Comment: Reaso n for Exam Chronic kidney disease, stage 3a;Hematuria, unspecified;Prot PER RICK AT DR'S OFFICE OK TO DO LABS TODAY. Result Comment: GFR estimated reference range: According to KDOQI guidelines, <60 ml/min/1.73m2 is sufficient to diagnose a patient with chronic kidney disease. Performed By: #### C MP, PTH, [id number], URIC #### [facility] [address] Estimated GFR (Non- Am > 60 Normal [facility] Comment on above: Order Comment: Reaso n for Exam Chronic kidney disease, stage 3a;Hematuria, unspecified;Prot PER RICK AT DR'S OFFICE OK TO DO LABS TODAY. Performed By: #### C MP, PTH, [id number], URIC #### [facility] [address] Globulin (S) [Mass/Vol] 3.1 g/dL Normal [facility] Comment on above: Order Comment: Reaso n for Exam Chronic kidney disease, stage 3a;Hematuria, unspecified;Prot PER RICK AT DR'S OFFICE OK TO DO LABS TODAY. Performed By: #### C MP, PTH, [id number], URIC #### [facility] [address] [place] [address] Glucose [Mass/Vol] 119 mg/dL High 70-100 [facility] Comment on above: Order Comment: Reaso n for Exam Chronic kidney disease, stage 3a;Hematuria, unspecified;Prot PER RICK AT DR'S OFFICE OK TO DO LABS TODAY. Result Comment: [facility] Glucose Reference Range is dependent on time and content of last meal. Glucose of more than 200 mg/dL in a nonstressed, ambulatory subject supports the diagnosis of Diabetes Mellitus. ADA recommended reference range Performed By: #### C MP, PTH, [id number], URIC #### [facility] [address] [place] [address] Potassium [Moles/Vol] 3.8 mmol/L Normal 3.5-5.1 [facility] Comment on above: Order Comment: Reaso n for Exam Chronic kidney disease, stage 3a;Hematuria, unspecified;Prot PER RICK AT DR'S OFFICE OK TO DO LABS TODAY. Performed By: #### C MP, PTH, [id number], URIC #### [facility] [address] [place], [place] [id number] [facility] Protein [Mass/Vol] 6.8 g/dL Normal 6.1-7.9 [facility] Comment on above: Order Comment: Reaso n for Exam Chronic kidney disease, stage 3a;Hematuria, unspecified;Prot PER RICK AT DR'S OFFICE OK TO DO LABS TODAY. Performed By: #### C MP, PTH, [id number], URIC #### [facility] [address] Sodium [Moles/Vol] 139 mmol/L Normal 136-146 [facility] Comment on above: Order Comment: Reaso n for Exam Chronic kidney disease, stage 3a;Hematuria, unspecified;Prot PER RICK AT DR'S OFFICE OK TO DO LABS TODAY. Performed By: #### C MP, PTH, [id number], URIC #### [facility] [address] Urea nitrogen [Mass/Vol] 15 mg/dL Normal 9-23 [facility] Comment on above: Order Comment: Reaso n for Exam Chronic kidney disease, stage 3a;Hematuria, unspecified;Prot PER RICK AT DR'S OFFICE OK TO DO LABS TODAY. Performed By: #### C MP, PTH, [id number], URIC #### [facility] [address] Creatinine [Mass/volume] in UrineOrdered By: Teetee Rizvi on 07-04-2022 Creatinine (U) [Mass/Vol] 235.6 mg/dL [facility] Comment on above: No reference range e stablished Creatinine and Glomerular fi ltration rate.predicted panel (S/P/Bld)Ordered By: Teetee Rizvi on 07-04-2022 Creatinine [Mass/Vol] 0.76 mg/dL 0.44-1.03 [facility] Cryoglobulin with Quant Refl exon 07-04-2022 Cryoglobulin, Ql, Serum Normal None detected [facility] Comment on above: Order Comment: Reaso n for Exam Chronic kidney disease, stage 3a;Hematuria, unspecified;Prot Result Comment: None Detected at 72 hours This test was developed and its performance characteristics determined by [employer]. It has not been cleared or approved by the Food and Drug Administration. Performed at: [address] [id number] [facility] Laboratory Director: Cody Williamson PhD, Phone: [phone] Performed By: #### C H50, C4, C3 #### [facility] , #### ESR, CBC #### [facility] [address] [place] [address] [place] Dipstick and Microscopicon 0 07-04-2022 Appearance (U) Clear Normal Clear [facility] Comment on above: Order Comment: Reaso n for Exam Chronic kidney disease, stage 3a;Hematuria, unspecified;Prot Name Collection Type:: Clean-Voided Midstream Performed By: #### C H50, C4, C3 #### [facility] , #### ESR, CBC #### [facility] [address] [place] [address] Bacteria,Urine None Seen Normal None Seen [facility] Comment on above: Order Comment: Reaso n for Exam Chronic kidney disease, stage 3a;Hematuria, unspecified;Prot Name Collection Type:: Clean-Voided Midstream Performed By: #### C H50, C4, C3 #### [facility] , #### ESR, CBC #### [facility] [address] [place] [address] Bilirubin,Urine Negative Normal Negative [facility] Comment on above: Order Comment: Reaso n for Exam Chronic kidney disease, stage 3a;Hematuria, unspecified;Prot Name Collection Type:: Clean-Voided Midstream Performed By: #### C H50, C4, C3 #### [facility] , #### ESR, CBC #### [facility] [address] [place] [address] [place] Color (U) Yellow Normal Yellow [facility] Comment on above: Order Comment: Reaso n for Exam Chronic kidney disease, stage 3a;Hematuria, unspecified;Prot Name Collection Type:: Clean-Voided Midstream Performed By: #### C H50, C4, C3 #### [facility] , #### ESR, CBC #### [facility] [address] [place] [address] [place] Glucose Ql (U) Normal Normal Normal [facility] Comment on above: Order Comment: Reaso n for Exam Chronic kidney disease, stage 3a;Hematuria, unspecified;Prot Name Collection Type:: Clean-Voided Midstream Performed By: #### C H50, C4, C3 #### [facility] , #### ESR, CBC #### [facility] [address] [place] [address] Hyaline Casts,Urine 9-19 High 0-8 [facility] Comment on above: Order Comment: Reaso n for Exam Chronic kidney disease, stage 3a;Hematuria, unspecified;Prot Name Collection Type:: Clean-Voided Midstream Result Comment: PERF ORMED BY: [place] [address] PATHOLOGIST PAPER INSPECTOR GIFTY CANO M.D. Performed By: #### C H50, C4, C3 #### [facility] , #### ESR, CBC #### [facility] [address] [place] [address] Ketones Ql (U) Trace High Negative [facility] Comment on above: Order Comment: Reaso n for Exam Chronic kidney disease, stage 3a;Hematuria, unspecified;Prot Name Collection Type:: Clean-Voided Midstream Performed By: #### C H50, C4, C3 #### [facility] , #### ESR, CBC #### [address] Leukocyte esterase Test strip Ql (U) Negative Normal Negative [facility] Comment on above: Order Comment: Reaso n for Exam Chronic kidney disease, stage 3a;Hematuria, unspecified;Prot Name Collection Type:: Clean-Voided Midstream Performed By: #### C H50, C4, C3 #### [facility] , #### ESR, CBC #### [facility] [address] [place] [address] [place] Nitrite,Urine Negative Normal Negative [facility] Comment on above: Order Comment: Reaso n for Exam Chronic kidney disease, stage 3a;Hematuria, unspecified;Prot Name Collection Type:: Clean-Voided Midstream Performed By: #### C H50, C4, C3 #### [facility] , #### ESR, CBC #### [facility] [address] [place] [address] Occult Blood,Urine Negative Normal Negative [facility] Comment on above: Order Comment: Reaso n for Exam Chronic kidney disease, stage 3a;Hematuria, unspecified;Prot Name Collection Type:: Clean-Voided Midstream Result Comment: PERF ORMED BY: [place] [address] PATHOLOGIST PAPER INSPECTOR GIFTY CANO M.D. Performed By: #### C H50, C4, C3 #### [facility] , #### ESR, CBC #### [address] pH (U) 6.5 [pH] Normal 5.0-9.0 [facility] Comment on above: Order Comment: Reaso n for Exam Chronic kidney disease, stage 3a;Hematuria, unspecified;Prot Name Collection Type:: Clean-Voided Midstream Performed By: #### C H50, C4, C3 #### [facility] , #### ESR, CBC #### [address] Protein (U) [Mass/Vol] 100 mg/dL High Negative [facility] Comment on above: Order Comment: Reaso n for Exam Chronic kidney disease, stage 3a;Hematuria, unspecified;Prot Name Collection Type:: Clean-Voided Midstream Performed By: #### C H50, C4, C3 #### [facility] , #### ESR, CBC #### [facility] [address] [place] [address] [place] RBC,Urine 5-9 High 0-4 [facility] Comment on above: Order Comment: Reaso n for Exam Chronic kidney disease, stage 3a;Hematuria, unspecified;Prot Name Collection Type:: Clean-Voided Midstream Performed By: #### C H50, C4, C3 #### [facility] , #### ESR, CBC #### [address] Renal Epithelial Cells,Urine None Seen Normal 0-1 [facility] Comment on above: Order Comment: Reaso n for Exam Chronic kidney disease, stage 3a;Hematuria, unspecified;Prot Name Collection Type:: Clean-Voided Midstream Performed By: #### C H50, C4, C3 #### [facility] , #### ESR, CBC #### [address] Specificy [place],Urine 1.021 Normal 1.001-1.030 [facility] Comment on above: Order Comment: Reaso n for Exam Chronic kidney disease, stage 3a;Hematuria, unspecified;Prot Name Collection Type:: Clean-Voided Midstream Performed By: #### C H50, C4, C3 #### [facility] , #### ESR, CBC #### [address] Squamous Epithelial Cell,Urine 1-2 Normal 0-2 [facility] Comment on above: Order Comment: Reaso n for Exam Chronic kidney disease, stage 3a;Hematuria, unspecified;Prot Name Collection Type:: Clean-Voided Midstream Performed By: #### C H50, C4, C3 #### [facility] , #### ESR, CBC #### [address] Urobilinogen,Urine Normal Normal Normal [facility] Comment on above: Order Comment: Reaso n for Exam Chronic kidney disease, stage 3a;Hematuria, unspecified;Prot Name Collection Type:: Clean-Voided Midstream Performed By: #### C H50, C4, C3 #### [facility] , #### ESR, CBC #### [address] [place] [id number] [facility] WBC,Urine 1-2 Normal 0-4 [facility] Comment on above: Order Comment: Reaso n for Exam Chronic kidney disease, stage 3a;Hematuria, unspecified;Prot Name Collection Type:: Clean-Voided Midstream Performed By: #### C H50, C4, C3 #### [facility] , #### ESR, CBC #### [facility] [address] Erythrocyte distribution wid th Auto (RBC) [Ratio]Ordered By: Teetee Rizvi on 07-04-2022 Erythrocyte distribution width (RBC) [Ratio] 14.1 % 11.9-15.3 [facility] Estimated glomerular filtrat ion rate (GFR) non- AmericanOrdered By: Teetee Rizvi on 07-04-2022 GFR/1.73 sq M.predicted among non-blacks MDRD (S/P/Bld) [Vol rate/Area] > 60 mL/Min [facility] Globulin Calc (S) [Mass/Vol] Ordered By: Teetee Rizvi on 07-04-2022 Globulin (S) [Mass/Vol] 3.1 g/dL [facility] Hematocrit Auto (Bld) [Volum e fraction]Ordered By: Teetee Rizvi on 07-04-2022 Hematocrit (Bld) [Volume fraction] 38.3 % 34.0-46.4 [facility] Hemogram CBC Without Diffon 07-04-2022 Erythrocyte distribution width (RBC) [Ratio] 14.1 % Normal 11.9-15.3 [facility] Comment on above: Order Comment: Reaso n for Exam Chronic kidney disease, stage 3a;Hematuria, unspecified;Prot Performed By: #### C H50, C4, C3 #### [facility] , #### ESR, CBC #### [facility] [address] [place] [address] Hematocrit (Bld) [Volume fraction] 38.3 % Normal 34.0-46.4 [facility] Comment on above: Order Comment: Reaso n for Exam Chronic kidney disease, stage 3a;Hematuria, unspecified;Prot Performed By: #### C H50, C4, C3 #### [facility] , #### ESR, CBC #### [address] Hemoglobin (Bld) [Mass/Vol] 12.6 g/dL Normal 11.8-15.4 [facility] Comment on above: Order Comment: Reaso n for Exam Chronic kidney disease, stage 3a;Hematuria, unspecified;Prot Performed By: #### C H50, C4, C3 #### [facility] , #### ESR, CBC #### [address] MCH (RBC) [Entitic mass] 29.1 pg Normal 24.7-34.3 [facility] Comment on above: Order Comment: Reaso n for Exam Chronic kidney disease, stage 3a;Hematuria, unspecified;Prot Performed By: #### C H50, C4, C3 #### [facility] , #### ESR, CBC #### [address] MCV (RBC) [Entitic vol] 88.7 fL Normal 80-100 [facility] Comment on above: Order Comment: Reaso n for Exam Chronic kidney disease, stage 3a;Hematuria, unspecified;Prot Performed By: #### C H50, C4, C3 #### [facility] , #### ESR, CBC #### [address] Mean Corpuscular HGB Conc 32.8 g/dL Normal 32.0-35.0 [facility] Comment on above: Order Comment: Reaso n for Exam Chronic kidney disease, stage 3a;Hematuria, unspecified;Prot Performed By: #### C H50, C4, C3 #### [facility] , #### ESR, CBC #### [address] Platelet mean volume (Bld) [Entitic vol] 8.0 fL Normal 6.3-10.7 [facility] Comment on above: Order Comment: Reaso n for Exam Chronic kidney disease, stage 3a;Hematuria, unspecified;Prot Result Comment: PERF ORMED BY: [place] [address] PATHOLOGIST PAPER INSPECTOR GIFTY CANO M.D. Performed By: #### C H50, C4, C3 #### [facility] , #### ESR, CBC #### [address] Platelets (Bld) [#/Vol] 269 10*3/uL Normal 150-450 [facility] Comment on above: Order Comment: Reaso n for Exam Chronic kidney disease, stage 3a;Hematuria, unspecified;Prot Performed By: #### C H50, C4, C3 #### [facility] , #### ESR, CBC #### [address] RBC (Bld) [#/Vol] 4.32 10*6/uL Normal 3.60-5.00 [facility] Comment on above: Order Comment: Reaso n for Exam Chronic kidney disease, stage 3a;Hematuria, unspecified;Prot Performed By: #### C H50, C4, C3 #### [facility] , #### ESR, CBC #### [address] WBC (Bld) [#/Vol] 6.9 10*3/uL Normal 3.8-11.6 [facility] Comment on above: Order Comment: Reaso n for Exam Chronic kidney disease, stage 3a;Hematuria, unspecified;Prot Performed By: #### C H50, C4, C3 #### [facility] , #### ESR, CBC #### [facility] [address] [place] [address] Hepatitis B Surface Antigeno n 07-04-2022 HBsAg Screen Negative Normal Negative [facility] Comment on above: Order Comment: Reaso n for Exam Chronic kidney disease, stage 3a;Hematuria, unspecified;Prot Result Comment: Perf ormed at: - [facility] [address] [id number] [facility] Laboratory Director: Cody Williamson PhD, Phone: [phone] PERFORMED BY: [place] [address] PATHOLOGIST PAPER INSPECTOR GIFTY CANO M.D. Performed By: #### C H50, C4, C3 #### [facility] , #### ESR, CBC #### [facility] [address] [place] [address] Hepatitis B virus surface Ag [Presence] in Serum or Plasma by ImmunoassayOrdered By: Teetee Rizvi on 07-04-2022 HBV surface Ag IA Ql Negative Negative [facility] Comment on above: Performed at: [facility] [place] [address] [facility] Laboratory Director: Cody Williamson PhD, Phone: [phone] Ketones Auto test strip (U) [Mass/Vol]Ordered By: Teetee Rizvi on 07-04-2022 Ketones (U) [Mass/Vol] Trace Negative [facility] Raffaele 07-04-2022 L - -------- Specimen: [id number] Received: 07/04/22 Status: NASIR Olguin Num: [id number] Spec Type: Surgical Subm Dr: Luis Figueredo DO Tissues: A Gross Only (RT RAND ROMEL BX) Procedures: Level 1 Gross -------- Age/ Patient Sex Location Account Attending Physician -------- Uzma Alfred 66/F [place] [id number] Teetee Rizvi MD -------- SPEC NUM: [id number] RECD: 07/04/22 STATUS: NASIR OLGUIN NUM: [id number] MARIBELL: 07/04/22 [facility] DR: Luis Figueredo DO ENTERED: 07/04/22 [facility] DR: Teetee Rizvi MD SPEC TYPE: Surgical DEPT: S ORDERED: Level 1 Gross ORDERED: Level 1 Gross Pathological Diagnosis Random kidney biopsy: - Mild Glomerulomegaly. See Comment. Comment: Glomerulomegaly is a nonspecific finding that indicated the presence of glomerular hyperfiltration and is frequently associated with proteinuria. Glomerulomegaly has been described in numerous clinical setting including obesity-related glomerulopathy,premat ure , and reflux nephropathy, among others. The etiology of this patients's hematuria is not identified. There is no evidence of glomerulonephritis and no immune complex-mediated or paraprotein-related renal disease. Chronicity Summary Total Glomeruli: 22 Global Glomerulosclerosis: 4 Segmental Sclerosis: Absent Interstitial Fibrosis: None Tubular Atrophy: None Arterial Intimal Fibrosis: None Arteriolar Hyalinosis: None Please see [facility] report ([id number]) for further details. -------- Specimen: [id number] Received: 07/04/22 Status: NASIR Olguin Num: [id number] Spec Type: Surgical Subm Dr: Luis Figueredo DO Tissues: A Gross Only (RT RAND ROMEL BARR) Procedures: Level 1 Gross -------- Patient: Uzma Alfred [id number] (Continued) -------- Specimen: [id number] Received: 07/04/22 (Continued) Signed (signature on file)__Makayla June Arteaga MD 07/06/22 1304 -------- Specimen: [id number] Received: 07/04/22 Status: NASIR Olguin Num: [id number] Spec Type: Surgical Subm Dr: Luis Figueredo DO Tissues: A Gross Only (RT RAND KID BX) Procedures: Level 1 Gross -------- Patient: Uzma Alfred [id number] (Continued) -------- Specimen: [id number] Received: 07/04/22 (Continued) Clinical Information Proteinuria, hematuria, CK D stage III, NSAID use (alf) Gross Description Received fresh labeled with the patient's name, number and random kidney biopsy are three gibson tissue cores each measuring 1.0 x 0.1 cm. The tissues are placed in Steve's transport medium and formalin and sent to [facility] for further renal studies. Microscopic Description The entire specimen is forwarded to [facility]. Their laboratory has performed the microscopic examination inclusive of special stain and additional studies as diagnostically necessary. The above reported pathologic diagnoses are those of the organizational development consultant. See their attached consultative report for a complete description ([facility] #[id number]). CPT Codes 67111 -------- -------- Specimen: [id number] Received: 07/04/22 Status: NASIR Olguin Num: [id number] Spec Type: Surgical Subm Dr: Luis Figueredo DO Tissues: A Gross Only (RT RAND KID BX) Procedures: Level 1 Gross -------- Patient: Uzma Alfred [id number] (Continued) -------- Signed (signature on file) June Arteaga MD 07/06/22 1304 Normal [facility] - CoagulationOrde red By: Teetee Rizvi on 07-04-2022 PT Coag (PPP) [Time] 10.1 s 9.0-12.9 [facility] - UrinalysisOrder ed By: Teetee Rizvi on 07-04-2022 Hyaline casts LM Ql (Urine sed) 9-19 [LPF] 0-8 [facility] MCH Auto (RBC) [Entitic mass ]Ordered By: Teetee Rizvi on 07-04-2022 MCH (RBC) [Entitic mass] 29.1 pg 24.7-34.3 [facility] MCHC Auto (RBC) [Mass/Vol]Or dered By: Teetee Rizvi on 07-04-2022 MCHC (RBC) [Mass/Vol] 32.8 g/dL 32.0-35.0 Fir [facility] MCV Auto (RBC) [Entitic vol] Ordered By: Teetee Rizvi on 07-04-2022 MCV (RBC) [Entitic vol] 88.7 fL 80-100 [facility] Nitrite Test strip Ql (U)Ord ered By: Teetee Rizvi on 07-04-2022 Nitrite Ql (U) Negative Negative [facility] No Panel InformationOrdered By: Teetee Rizvi on 07-04-2022 25-Hydroxy Vitamin D Total 42.1 ng/mL 30-100 [facility] Comment on above: VITAMIN D STATUS 25( OH)VITAMIN D RANGE (ng/mL) Deficient <20 Insufficient 20 to <30 Sufficient 30 to 100 Reference: Vero MF,Nara NC, Darius RHODES, et al. Evaluation,treatment, and prevention of vitamin D deficiency; an Endocrine Society clinical practice guideline. JCEM. 2010; 96(7):1911-30. Estimated GFR () > 60 mL/Min [facility] Comment on above: GFR estimated refere nce range: According to KDOQI guidelines, <60 ml/min/1.73m2 is sufficient to diagnose a patient with chronic kidney disease. Pharmacy Creatinine Clearance (Chem 76.30 [facility] Parathyroid Hormone Intacton 07-04-2022 Parathyroid Hormone Intact 80.6 pg/mL Normal 12-88 [facility] Comment on above: Order Comment: Name Collection Type:: Clean-Voided Midstream Result Comment: PERF ORMED BY: [facility] [address] [place] [address] PATHOLOGIST PAPER INSPECTOR GIFTY CANO M.D. Performed By: #### L UPANTCOAG #### [facility] , #### ADDONUAPLUS #### [facility] [address] Partial Thromboplastin Timeo n 07-04-2022 aPTT Coag (Bld) [Time] 28.8 s Normal 25.1-36.5 [facility] Comment on above: Order Comment: Reaso n for Exam Chronic kidney disease, stage 3a;Hematuria, unspecified;Prot STAT COAGS FOR CT BX Result Comment: PERF ORMED BY: [place] [address] PATHOLOGIST PAPER INSPECTOR GIFTY CANO M.D. Performed By: #### C H50, C4, C3 #### [facility] , #### ESR, CBC #### [address] Platelet mean volume Auto (B ld) [Entitic vol]Ordered By: Teetee Rizvi on 07-04-2022 Platelet mean volume (Bld) [Entitic vol] 8.0 fL 6.3-10.7 [facility] Platelet poor plasma interna tional normalized ratio (INR) by coagulation assay (relatOrdered By: Teetee Rizvi on 07-04-2022 INR Coag (PPP) [Relative time] 0.9 {INR} [facility] Comment on above: INR Therapeutic Rang e A) Pre- and Peroperative OAT started two weeks before surgery. NOT HIP SURGERY: 1.5 - 2.5 HIP SURGERY: 2 - 3 B) Primary and secondary prevention of venous THROMBOSIS: 2 - 3 C) Active venous thrombosis, pulmonary embolism and prevention of recurrent venous thrombosis: 2 - 3 D) Prevention of arterial thromboembolism including patients with mechanical heart valves: 3 - 4.5 Platelets Auto (Bld) [#/Vol] Ordered By: Teetee Rizvi on 07-04-2022 Platelets (Bld) [#/Vol] 269 10*3/uL 150-450 [facility] Protein Auto test strip (U) [Mass/Vol]Ordered By: Teetee Rizvi on 07-04-2022 Protein (U) [Mass/Vol] 100 mg/dL Negative [facility] Protein Creat Ratio Ur Rando mon 07-04-2022 Creatinine, Urine (Random) 235.6 mg/dL Normal [facility] Comment on above: Order Comment: Name Collection Type:: Clean-Voided Midstream Result Comment: No r eference range established Performed By: #### L UPANTCOAG #### [facility] , #### ADDONUAPLUS #### [facility] [address] [place] [address] Protein (U) [Mass/Vol] 61 mg/dL High 0-9 [facility] Comment on above: Order Comment: Name Collection Type:: Clean-Voided Midstream Performed By: #### L UPANTCOAG #### [facility] , #### ADDONUAPLUS #### [facility] [address] [place] [address] Urine Protein/Creatinine Ratio 259 mg/g{Cre} High 0-200 [facility] Comment on above: Order Comment: Name Collection Type:: Clean-Voided Midstream Result Comment: PERF ORMED BY: [place] [address] PATHOLOGIST PAPER INSPECTOR GIFTY CANO M.D. Performed By: #### L UPANTCOAG #### [facility] , #### ADDONUAPLUS #### [facility] [address] [place] [address] Protein [Mass/volume] in Ser um or PlasmaOrdered By: Teetee Rizvi on 07-04-2022 Protein [Mass/Vol] 6.8 g/dL 6.1-7.9 [facility] Protein [Mass/volume] in Uri neOrdered By: Teetee Rizvi on 07-04-2022 Protein (U) [Mass/Vol] 61 mg/dL 0-9 [facility] Proteinase 3 (PR3) Antibodie son 07-04-2022 Proteinase 3 (PR3) Antibodies <0.2 Normal 0.0-0.9 [facility] Comment on above: Order Comment: Reaso n for Exam Chronic kidney disease, stage 3a;Hematuria, unspecified;Prot Result Comment: Perf ormed at: BN - [facility] [id number] [facility], [place], [place] [id number] [employer] Laboratory Director: Aroldo Son MD, Phone: [phone] PERFORMED BY: [place] [address] PATHOLOGIST PAPER INSPECTOR GIFTY CANO M.D. Performed By: #### C H50, C4, C3 #### [facility] , #### ESR, CBC #### [address] Prothrombin Time INRon 07-04 INR Coag (PPP) [Relative time] 0.9 {INR} Normal [facility] Comment on above: Order Comment: Reaso n for Exam Chronic kidney disease, stage 3a;Hematuria, unspecified;Prot STAT COAGS FOR CT BX Result Comment: INR Therapeutic Range A) Pre- and Peroperative OAT started two weeks before surgery. NOT HIP SURGERY: 1.5 - 2.5 HIP SURGERY: 2 - 3 B) Primary and secondary prevention of venous THROMBOSIS: 2 - 3 C) Active venous thrombosis, pulmonary embolism and prevention of recurrent venous thrombosis: 2 - 3 D) Prevention of arterial thromboembolism including patients with mechanical heart valves: 3 - 4.5 Performed By: #### C H50, C4, C3 #### [facility] , #### ESR, CBC #### [facility] [address] [place] [address] PT Coag (PPP) [Time] 10.1 s Normal 9.0-12.9 [facility] Comment on above: Order Comment: Reaso n for Exam Chronic kidney disease, stage 3a;Hematuria, unspecified;Prot STAT COAGS FOR CT BX Performed By: #### C H50, C4, C3 #### [facility] , #### ESR, CBC #### [facility] [address] [place] [address] [place] RBC Auto (Bld) [#/Vol]Ordere d By: Teetee Rizvi on 07-04-2022 RBC (Bld) [#/Vol] 4.32 10*6/uL 3.60-5.00 [facility] Serum or plasma alanine márquez otransferase measurement without P-5'-P (enzymatic activiOrdered By: Teetee Rizvi on 07-04-2022 ALT No additional P-5'-P [Catalytic activity/Vol] 20 U/L 10-60 [facility] Serum or plasma albumin/glob ulin mass ratioOrdered By: Teetee Rizvi on 07-04-2022 Albumin/Globulin [Mass ratio] 1.2 {ratio} [facility] Serum or plasma alkaline adela sphatase measurement (enzymatic activity/volume)Ordered By: Teetee Rizvi on 07-04-2022 ALP [Catalytic activity/Vol] 61 U/L 32-92 [facility] Serum or plasma anion gap de terminationOrdered By: Teetee Rizvi on 07-04-2022 Anion gap [Moles/Vol] 13.7 mmol/L 6.0-15.0 [facility] Serum or plasma aspartate am inotransferase measurement (enzymatic activity/volume)Ordered By: Teetee Rizvi on 07-04-2022 AST [Catalytic activity/Vol] 22 U/L 10-42 [facility] Serum or plasma calcium kiana urement (mass/volume)Ordered By: Teetee Rizvi on 07-04-2022 Calcium [Mass/Vol] 8.9 mg/dL 8.2-10.2 [facility] Serum or plasma chloride melvin surement (moles/volume)Ordered By: Teetee Rizvi on 07-04-2022 Chloride [Moles/Vol] 106 mmol/L 95-114 [facility] Serum or plasma complement C 3 measurement (mass/volume)Ordered By: Teetee Rizvi on 07-04-2022 Complement C3 [Mass/Vol] 144 mg/dL 82-167 [facility] Comment on above: Performed at: [address] [id number] [employer] Laboratory Director: Cody Williamson PhD, Phone: [phone] Serum or plasma complement C 4 measurement (mass/volume)Ordered By: Teetee Rizvi on 07-04-2022 Complement C4 [Mass/Vol] 22 mg/dL [facility] Serum or plasma free cefurox greg measurement (mass/volume)Ordered By: Teetee Rizvi on 07-04-2022 Cefuroxime free [Mass/Vol] Negative Negative [facility] Comment on above: Performed at: [address] [id number] [employer] Laboratory Director: Cdoy Williamson PhD, Phone: [phone] Serum or plasma glucose kiana urement (mass/volume)Ordered By: Teetee Rizvi on 07-04-2022 Glucose [Mass/Vol] 119 mg/dL 70-100 [facility] Comment on above: ADA recommended refe rence range Random Glucose Reference Range is dependent on time and content of last meal. Glucose of more than 200 mg/dL in a nonstressed, ambulatory subject supports the diagnosis of Diabetes Mellitus. Serum or plasma intact parat hyroid hormone measurement (mass/volume)Ordered By: Teetee Rizvi on 07-04-2022 Parathyrin.intact [Mass/Vol] 80.6 pg/mL [facility] Serum or plasma potassium me asurement (moles/volume)Ordered By: Teetee Rizvi on 07-04-2022 Potassium [Moles/Vol] 3.8 mmol/L 3.5-5.1 [facility] Serum or plasma sodium measu rement (moles/volume)Ordered By: Teetee Rizvi on 07-04-2022 Sodium [Moles/Vol] 139 mmol/L 136-146 [facility] Serum or plasma total biliru bin measurement (mass/volume)Ordered By: Teetee Rizvi on 07-04-2022 Bilirubin [Mass/Vol] 1.6 mg/dL 0.3-1.2 [facility] Comment on above: Samples from patient s who have taken Naproxen have shown spurious elevation in Total Bilirubin levels. A metabolite of Naproxen, O-desmethylnaproxen, has been shown to interfere with the Carmen-William method for measuring Total Bilirubin. Serum or plasma total carbon dioxide measurement (moles/volume)Ordered By: Teetee Rizvi on 07-04-2022 CO2 [Moles/Vol] 23.1 mmol/L 22.0-30.0 [facility] Serum or plasma urea nitroge n measurement (mass/volume)Ordered By: Teetee Rizvi on 07-04-2022 Urea nitrogen [Mass/Vol] 15 mg/dL 9-23 [facility] Serum or plasma uric acid me asurement (mass/volume)Ordered By: Teetee Rizvi on 07-04-2022 Urate [Mass/Vol] 5.1 mg/dL 2.6-7.2 [facility] Specific gravity Auto test s trip (U) [Rel density]Ordered By: Teetee Rizvi on 07-04-2022 Specific gravity (U) [Rel density] 1.021 1.001-1.030 [facility] Squamous epithelial cells de tection in urine sediment by light microscopyOrdered By: Teetee Rizvi on 07-04-2022 Epithelial cells.squamous LM Ql (Urine sed) 1-2 [HPF] 0-2 [facility] Uric Acidon 07-04-2022 Urate [Mass/Vol] 5.1 mg/dL Normal 2.6-7.2 [facility] Comment on above: Order Comment: Reaso n for Exam Chronic kidney disease, stage 3a;Hematuria, unspecified;Prot PER RICK AT 'S OFFICE OK TO DO LABS TODAY. Performed By: #### C MP, PTH, [id number], URIC #### [facility] [address] [place] [address] Urine bacteria detection by automated methodOrdered By: Teetee Rizvi on 07-04-2022 Bacteria Auto Ql (U) None seen None Seen [facility] Urine clarity by refractomet ry automatedOrdered By: Teetee Rizvi on 07-04-2022 Clarity Refractometry automated (U) Clear Clear [facility] Urine glucose measurement by automated test strip (mass/volume)Ordered By: Teetee Rizvi on 07-04-2022 Glucose Auto test strip (U) [Mass/Vol] Normal mg/dL Normal [facility] Urine hemoglobin detection b y automated test stripOrdered By: Teetee Rizvi on 07-04-2022 Hemoglobin Auto test strip Ql (U) Negative Negative [facility] Urine leukocyte esterase det ection by automated test stripOrdered By: Teetee Rizvi on 07-04-2022 Leukocyte esterase Auto test strip Ql (U) Negative Negative [facility] Urine protein/creatinine rat ioOrdered By: Teetee Rizvi on 07-04-2022 Protein/Creatinine (U) [Ratio] 259 mg/g{Cre} 0-200 [facility] Urine sediment renal epithel ial cell count by microscopy (number/high power field)Ordered By: Teetee Rizvi on 07-04-2022 Epithelial cells.renal LM.HPF (Urine sed) [#/Area] None seen [HPF] 0-1 [facility] Urobilinogen Auto test strip (U) [Mass/Vol]Ordered By: Teetee Rizvi on 07-04-2022 Urobilinogen (U) [Mass/Vol] Normal mg/dL Normal [facility] Vitamin D 25 Hydroxy Totalon 07-04-2022 Vitamin D 25 Hydroxy Total 42.1 ng/mL Normal 30-100 [facility] Comment on above: Order Comment: Name Collection Type:: Clean-Voided Midstream Result Comment: GARY MIN D STATUS 25(OH)VITAMIN D RANGE (ng/mL) Deficient <20 Insufficient 20 to <30 Sufficient 30 to 100 Reference: Vero MF,Nara NC, Darius RHODES, et al. Evaluation,treatment, and prevention of vitamin D deficiency; an Endocrine Society clinical practice guideline. JCEM. 2010; 96(7):1911-30. Performed By: #### L UPANTCOAG #### [facility] , #### ADDONUAPLUS #### [facility] [address] [place] [address] WBC Auto (Bld) [#/Vol]Ordere d By: Teetee Rizvi on 07-04-2022 WBC (Bld) [#/Vol] 6.9 10*3/uL 3.8-11.6 [facility] pH Auto test strip (U)Ordere d By: Teetee Rizvi on 07-04-2022 pH (U) 6.5 [pH] 5.0-9.0 [facility] ANTICARDIOLIPIN AB (AKASH) IGA /IGG/IGMon 07-03-2022 Anticardiolipin Ab,IgA,Qn <9 Normal 0-11 [facility] Comment on above: Result Comment: Nega tive: <12 Indeterminate: 12 - 20 Low-Med Positive: >20 - 80 High Positive: >80 Performed By: #### A CAQUAN #### [facility] [address] [address] [address] Myrna Antony Anticardiolipin Ab,IgG,Qn <9 Normal 0-14 [facility] Comment on above: Result Comment: Nega tive: <15 Indeterminate: 15 - 20 Low-Med Positive: >20 - 80 High Positive: >80 Performed By: #### A CAQUAN #### [facility] [address] [address] [address] Myrna Antony Anticardiolipin Ab,IgM,Qn 44 MPL U/mL Critically high 0-12 [facility] Comment on above: Result Comment: Nega tive: <13 Indeterminate: 13 - 20 Low-Med Positive: >20 - 80 High Positive: >80 Performed By: #### A CAQUAN #### [facility] [address] [place] [address] Dr. Myrna Antony CRPon 07-02-2022 CRP [Mass/Vol] mg/L Normal <=1.0 [facility] Comment on above: Performed By: #### C RP #### [facility] [address] [place] [address] Dr. Myrna Antony MG MAMM SCREEN 3D YAYO CADon 07-02-2022 MG MAMM SCREEN 3D AYYO CAD Patient: UZMA ALFRED Exam Date: 07/02/2022 : 1955 Gender:F Ordering : DR ERROL CORBIN M.D. Admission #: [id number] Family : DR FLORINDA FLOWERS M.D. Order #: [id number] CLICK HERE TO VIEW EXAM RADIOLOGY REPORT PROCEDURE: MAMMOGRAM SCREENING 3D BILATERAL CAD COMPARISON: MG MAMM SCREEN 3D YAYO CAD, 06/28/2021. MG MAMM SCREEN YAYO W CAD, 06/27/2020. INDICATIONS: Screening mammography Calculator Name NCI Breast Cancer Risk Assessment Tool 5 Year Breast Cancer Risk n/a% Lifetime Breast Cancer Risk n/a% Personal Breast Cancer Yes, Lt breast cancer, 2003 Personal Ovarian Cancer No Treatments Lt mastectomy, Radiation, Chemotherapy, Arimidex x 5 years Family Cancers Sister with breast cancer at age 45; Sister with ovarian cancer at age 63; Sister with uterine cancer at age 63. LOCATION: [facility] BREAST COMPOSITION: Scattered areas fibroglandular density. FINDINGS: DIAGNOSTIC CATEGORY 2--BENIGN FINDING. NO CHANGE FROM COMPARISON. Scattered benign-appearing lymph nodes are present. Scattered benign-appearing calcifications are present. Scattered benign-appearing nodules are present. RIGHT BREAST: No significant suspicious finding. LEFT BREAST: Asymmetrically small with fatty density. Vascular calcifications.. RECOMMENDATIONS: ROUTINE MAMMOGRAM AND CLINICAL EVALUATION IN 12 MONTHS. PLEASE NOTE: A NORMAL MAMMOGRAM DOES NOT EXCLUDE THE POSSIBILITY OF BREAST CANCER. A CLINICALLY SUSPICIOUS PALPABLE LUMP SHOULD BE BIOPSIED. Dictated by: Edward Bobo MD on 07/02/2022 at 11:04 Approved by: Edward Bobo MD on 07/02/2022 at 11:05 Normal [facility] SED RATE WESTERGRENon 2021 SED RATE 37 mm/hr Critically high <=30 [facility] Comment on above: Performed By: #### S EDR #### [facility] [address] [place] [address] Dr. Myrna Antony Automated erythrocytes count in urine sediment (number/area)Ordered By: Ryan Ortiz on 03-19-2022 RBC Auto (Urine sed) [#/Area] 20-49 [HPF] [facility] Automated leukocytes count i n urine sediment (number/area)Ordered By: Ryan Ortiz on 03-19-2022 WBC Auto (Urine sed) [#/Area] 3-4 [HPF] [facility] Automated urine hyaline cast s count (number/volume)Ordered By: Ryan Ortiz on 03-19-2022 Hyaline casts Auto (U) [#/Vol] None seen [LPF] [facility] Bilirubin Test strip Ql (U)O rdered By: Ryan Ortiz on 03-19-2022 Bilirubin Ql (U) Negative Negative [facility] Blood Urea Nitrogenon 2021 Urea nitrogen [Mass/Vol] 28 mg/dL High 9-23 [facility] Comment on above: Performed By: #### C H50, C4, C3 #### [facility] , #### ESR, CBC #### [facility] [address] [place] [address] C-Reactive Proteinon 022 C-Reactive Protein 0.9 mg/dL Normal 0.0-1.0 [facility] Comment on above: Result Comment: PERF ORMED BY: [place] [address] PATHOLOGIST PAPER INSPECTOR GIFTY CANO M.D. Performed By: #### C H50, C4, C3 #### [facility] , #### ESR, CBC #### [address] Casts typing in urine sedime nt by light microscopyOrdered By: Ryan Ortiz on 03-19-2022 Casts LM Nom (Urine sed) None seen [LPF] None Seen [facility] Color Auto (U)Ordered By: Rowdy Ortiz on 03-19-2022 Color (U) Dark yellow Yellow [facility] Creatinineon 03-19-2022 Creatinine [Mass/Vol] 1.02 mg/dL Normal 0.44-1.03 [facility] Comment on above: Performed By: #### C H50, C4, C3 #### [facility] , #### ESR, CBC #### [facility] [address] [place] [address] [place] Estimated GFR ( Lexis > 60 Normal [facility] Comment on above: Result Comment: GFR estimated reference range: According to KDOQI guidelines, <60 ml/min/1.73m2 is sufficient to diagnose a patient with chronic kidney disease. Performed By: #### C H50, C4, C3 #### [facility] , #### ESR, CBC #### [facility] [address] [place] [address] Estimated GFR (Non- Am 54 Normal [facility] Comment on above: Performed By: #### C H50, C4, C3 #### [facility] , #### ESR, CBC #### [place] [address] [place] Creatinine and Glomerular fi ltration rate.predicted panel (S/P/Bld)Ordered By: Ryan Ortiz on 03-19-2022 Creatinine [Mass/Vol] 1.02 mg/dL 0.44-1.03 [facility] Dipstick and Microscopicon 0 03-19-2022 Appearance (U) Clear Normal Clear [facility] Comment on above: Order Comment: Name Collection Type:: Clean-Voided Midstream Performed By: #### C H50, C4, C3 #### [facility] , #### ESR, CBC #### [address] Bacteria,Urine None Seen Normal None Seen [facility] Comment on above: Order Comment: Name Collection Type:: Clean-Voided Midstream Performed By: #### C H50, C4, C3 #### [facility] , #### ESR, CBC #### [address] Bilirubin,Urine Negative Normal Negative [facility] Comment on above: Order Comment: Name Collection Type:: Clean-Voided Midstream Performed By: #### C H50, C4, C3 #### [facility] , #### ESR, CBC #### [facility] [address] [place] [address] [place] Color (U) Dark Yellow Critically abnormal Yellow [facility] Comment on above: Order Comment: Name Collection Type:: Clean-Voided Midstream Performed By: #### C H50, C4, C3 #### [facility] , #### ESR, CBC #### [place] [address] [place] Glucose Ql (U) Normal Normal Normal [facility] Comment on above: Order Comment: Name Collection Type:: Clean-Voided Midstream Performed By: #### C H50, C4, C3 #### [facility] , #### ESR, CBC #### [facility] [address] [place] [address] Hyaline Casts,Urine None Seen Normal 0-1 [facility] Comment on above: Order Comment: Name Collection Type:: Clean-Voided Midstream Performed By: #### C H50, C4, C3 #### [facility] , #### ESR, CBC #### [facility] [address] [place] [address] Ketones Ql (U) Trace High Negative [facility] Comment on above: Order Comment: Name Collection Type:: Clean-Voided Midstream Performed By: #### C H50, C4, C3 #### [facility] , #### ESR, CBC #### [facility] [address] [place] [address] Leukocyte esterase Test strip Ql (U) 1+ High Negative [facility] Comment on above: Order Comment: Name Collection Type:: Clean-Voided Midstream Performed By: #### C H50, C4, C3 #### [facility] , #### ESR, CBC #### [facility] [address] [place] [address] Mucus,Urine 2+ Critically abnormal [facility] Comment on above: Order Comment: Name Collection Type:: Clean-Voided Midstream Result Comment: PERF ORMED BY: [place] [address] PATHOLOGIST PAPER INSPECTOR GIFTY CANO M.D. Performed By: #### C H50, C4, C3 #### [facility] , #### ESR, CBC #### [address] Nitrite,Urine Negative Normal Negative [facility] Comment on above: Order Comment: Name Collection Type:: Clean-Voided Midstream Performed By: #### C H50, C4, C3 #### [facility] , #### ESR, CBC #### [address] Occult Blood,Urine Negative Normal Negative [facility] Comment on above: Order Comment: Name Collection Type:: Clean-Voided Midstream Performed By: #### C H50, C4, C3 #### [facility] , #### ESR, CBC #### [address] Other Casts,Urine None Seen Normal None Seen [facility] Comment on above: Order Comment: Name Collection Type:: Clean-Voided Midstream Performed By: #### C H50, C4, C3 #### [facility] , #### ESR, CBC #### [address] pH (U) 5.5 [pH] Normal 5.0-9.0 [facility] Comment on above: Order Comment: Name Collection Type:: Clean-Voided Midstream Performed By: #### C H50, C4, C3 #### [facility] , #### ESR, CBC #### [address] Protein (U) [Mass/Vol] 100 mg/dL High Negative [facility] Comment on above: Order Comment: Name Collection Type:: Clean-Voided Midstream Performed By: #### C H50, C4, C3 #### [facility] , #### ESR, CBC #### [facility] [address] [place] [address] [place] RBC,Urine 20-49 High 0-4 [facility] Comment on above: Order Comment: Name Collection Type:: Clean-Voided Midstream Performed By: #### C H50, C4, C3 #### [facility] , #### ESR, CBC #### [address] Renal Epithelial Cells,Urine None Seen Normal 0-1 [facility] Comment on above: Order Comment: Name Collection Type:: Clean-Voided Midstream Performed By: #### C H50, C4, C3 #### [facility] , #### ESR, CBC #### [address] Specificy [place],Urine 1.026 Normal 1.001-1.030 [facility] Comment on above: Order Comment: Name Collection Type:: Clean-Voided Midstream Performed By: #### C H50, C4, C3 #### [facility] , #### ESR, CBC #### [address] Squamous Epithelial Cell,Urine 3-4 High 0-2 [facility] Comment on above: Order Comment: Name Collection Type:: Clean-Voided Midstream Performed By: #### C H50, C4, C3 #### [facility] , #### ESR, CBC #### [address] Urobilinogen,Urine Normal Normal Normal [facility] Comment on above: Order Comment: Name Collection Type:: Clean-Voided Midstream Performed By: #### C H50, C4, C3 #### [facility] , #### ESR, CBC #### [address] WBC,Urine 3-4 Normal 0-4 [facility] Comment on above: Order Comment: Name Collection Type:: Clean-Voided Midstream Performed By: #### C H50, C4, C3 #### [facility] , #### ESR, CBC #### [address] Erythrocyte Sedimentation Ra ramírez 03-19-2022 ESR (Bld) [Velocity] 29 mm/h Normal 0-29 [facility] Comment on above: Result Comment: PERF ORMED BY: [place] [address] PATHOLOGIST PAPER INSPECTOR GIFTY CANO M.D. Performed By: #### C H50, C4, C3 #### [facility] , #### ESR, CBC #### [facility] [address] [place] [address] Erythrocyte sedimentation ra te by Photometric methodOrdered By: Ryan Ortiz on 03-19-2022 ESR Photometric method (Bld) [Velocity] 29 mm/hr 0-29 [facility] Estimated glomerular filtrat ion rate (GFR) non- AmericanOrdered By: Ryan Ortiz on 03-19-2022 GFR/1.73 sq M.predicted among non-blacks MDRD (S/P/Bld) [Vol rate/Area] 54 mL/Min [facility] Ketones Auto test strip (U) [Mass/Vol]Ordered By: Ryan Ortiz on 03-19-2022 Ketones (U) [Mass/Vol] Trace Negative [facility] Mucus LM Ql (Urine sed)Order ed By: Ryan Ortiz on 03-19-2022 Mucus Ql (Urine sed) 2+ [LPF] [facility] Nitrite Test strip Ql (U)Ord ered By: Ryan Ortiz on 03-19-2022 Nitrite Ql (U) Negative Negative [facility] No Panel InformationOrdered By: Ryan Ortiz on 03-19-2022 Estimated GFR () > 60 mL/Min [facility] Comment on above: GFR estimated refere nce range: According to KDOQI guidelines, <60 ml/min/1.73m2 is sufficient to diagnose a patient with chronic kidney disease. Pharmacy Creatinine Clearance (Chem N/A [facility] Protein Auto test strip (U) [Mass/Vol]Ordered By: Ryan Ortiz on 03-19-2022 Protein (U) [Mass/Vol] 100 mg/dL Negative [facility] Serum or plasma C reactive p rotein measurement (mass/volume)Ordered By: Ryan Ortiz on 03-19-2022 CRP [Mass/Vol] 0.9 mg/dL 0.0-1.0 [facility] Serum or plasma urea nitroge n measurement (mass/volume)Ordered By: Ryan Ortiz on 03-19-2022 Urea nitrogen [Mass/Vol] 28 mg/dL 9-23 [facility] Specific gravity Auto test s trip (U) [Rel density]Ordered By: Ryan Ortiz on 03-19-2022 Specific gravity (U) [Rel density] 1.026 1.001-1.030 [facility] Squamous epithelial cells de tection in urine sediment by light microscopyOrdered By: Ryan Ortiz on 03-19-2022 Epithelial cells.squamous LM Ql (Urine sed) 3-4 [HPF] [facility] Urine bacteria detection by automated methodOrdered By: Ryan Ortiz on 03-19-2022 Bacteria Auto Ql (U) None seen None Seen [facility] Urine clarity by refractomet ry automatedOrdered By: Ryan Ortiz on 03-19-2022 Clarity Refractometry automated (U) Clear Clear [facility] Urine glucose measurement by automated test strip (mass/volume)Ordered By: Ryan Ortiz on 03-19-2022 Glucose Auto test strip (U) [Mass/Vol] Normal mg/dL Normal [facility] Urine hemoglobin detection b y automated test stripOrdered By: Ryan Ortiz on 03-19-2022 Hemoglobin Auto test strip Ql (U) Negative Negative [facility] Urine leukocyte esterase det ection by automated test stripOrdered By: Ryan Ortiz on 03-19-2022 Leukocyte esterase Auto test strip Ql (U) 1+ Negative [facility] Urine sediment renal epithel ial cell count by microscopy (number/high power field)Ordered By: Ryan Ortiz on 03-19-2022 Epithelial cells.renal LM.HPF (Urine sed) [#/Area] None seen [HPF] [facility] Urobilinogen Auto test strip (U) [Mass/Vol]Ordered By: Ryan Ortiz on 03-19-2022 Urobilinogen (U) [Mass/Vol] Normal mg/dL Normal [facility] pH Auto test strip (U)Ordere d By: Ryan Ortiz on 03-19-2022 pH (U) 5.5 [pH] 5.0-9.0 [facility] CBC W Auto Differential pane l (Bld)on 02-15-2022 Basophils (Bld) [#/Vol] 0.04 10*3/uL Normal <0.11 [facility] Comment on above: Order Comment: Speci men Type: BLOOD SPECIMEN Ordering Facility: [facility] Address: [address] [place] [address] Performed By: #### 5 [id number] #### [facility] CLIA [id number] [address] [place] [id number] Basophils/100 WBC (Bld) 0.4 % Normal [facility] [facility] Comment on above: Order Comment: Speci men Type: BLOOD SPECIMEN Ordering Facility: [facility] Address: [address] [place] [address] Performed By: #### 5 7021-8 #### [facility] CLIA [id number] [address] [place] [address] 41767 Differential cell count method Nom (Bld) Auto Normal [facility] Comment on above: Order Comment: Speci men Type: BLOOD SPECIMEN Ordering Facility: [facility] Address: [address] [place] [address] Performed By: #### 5 7021-8 #### [facility] CLIA [id number] [address] [place] [address] 57854 Eosinophils (Bld) [#/Vol] 0.14 10*3/uL Normal <0.46 [facility] Comment on above: Order Comment: Speci men Type: BLOOD SPECIMEN Ordering Facility: [facility] Address: [address] [place] [address] Performed By: #### 5 7021-8 #### [facility] CLIA [id number] [address] [place] [address] Eosinophils/100 WBC (Bld) 1.4 % Normal [facility] Comment on above: Order Comment: Speci men Type: BLOOD SPECIMEN Ordering Facility: [facility] Address: [address] [place] [address] Performed By: #### 5 7021-8 #### [facility] CLIA [id number] [address] [place] [address] 10714 Erythrocyte distribution width (RBC) [Ratio] 14.4 % Normal 11.5-15.0 [facility] Comment on above: Order Comment: Speci men Type: BLOOD SPECIMEN Ordering Facility: [facility] Address: [address] [place] [address] Performed By: #### 5 7021-8 #### [facility] CLIA [id number] [address] [place] [address] 53804 Hematocrit (Bld) [Volume fraction] 39.7 % Normal 36.0-46.0 [facility] Comment on above: Order Comment: Speci men Type: BLOOD SPECIMEN Ordering Facility: [facility] Address: [address] [place] [address] Performed By: #### 5 7021-8 #### [facility] CLIA [id number] [address] [place] [address] 89485 Hemoglobin (Bld) [Mass/Vol] 12.7 g/dL Normal 11.5-15.5 [facility] Comment on above: Order Comment: Speci men Type: BLOOD SPECIMEN Ordering Facility: [facility] Address: [address] [place] [address] Performed By: #### 5 7021-8 #### [facility] CLIA [id number] [address] [place] [address] 01816 IMMATURE GRAN % 0.3 % Normal [facility] Comment on above: Order Comment: Speci men Type: BLOOD SPECIMEN Ordering Facility: [facility] Address: [address] [place] [address] Performed By: #### 5 7021-8 #### [facility] CLIA [id number] [address] [place] [address] 60474 IMMATURE GRAN ABS 0.03 k/uL Normal <0.10 [facility] Comment on above: Order Comment: Speci men Type: BLOOD SPECIMEN Ordering Facility: [facility] Address: [address] [place] [address] Performed By: #### 5 7021-8 #### [facility] CLIA [id number] [address] [place] [address] 80631 Lymphocytes (Bld) [#/Vol] 4.34 10*3/uL High 1.00-4.00 [facility] Comment on above: Order Comment: Speci men Type: BLOOD SPECIMEN Ordering Facility: [facility] Address: [address] [place] [address] Performed By: #### 5 7021-8 #### [facility] CLIA [id number] [address] [place] [address] 26437 Lymphocytes/100 WBC (Bld) 43.5 % Normal [facility] Comment on above: Order Comment: Speci men Type: BLOOD SPECIMEN Ordering Facility: [facility] Address: [address] [place], [place] [address] Performed By: #### 5 7021-8 #### [facility] CLIA [id number] [address] [place] [address] 77964 MCH (RBC) [Entitic mass] 29.5 pg Normal 26.0-34.0 [facility] Comment on above: Order Comment: Speci men Type: BLOOD SPECIMEN Ordering Facility: [facility] Address: [address] [place], [place] [address] Performed By: #### 5 7021-8 #### [facility] CLIA [id number] [address] [place] [address] 35423 MCHC (RBC) [Mass/Vol] 32.0 g/dL Normal 30.5-36.0 [facility] Comment on above: Order Comment: Speci men Type: BLOOD SPECIMEN Ordering Facility: [facility] Address: [address] [place], [place] [address] Performed By: #### 5 7021-8 #### [facility] CLIA [id number] [address] [place] [address] 31147 MCV (RBC) [Entitic vol] 92.1 fL Normal 80.0-100.0 [facility] Comment on above: Order Comment: Speci men Type: BLOOD SPECIMEN Ordering Facility: [facility] Address: [address] [place] [address] Performed By: #### 5 7021-8 #### [facility] CLIA [id number] [address] [place] [address] 91535 Monocytes (Bld) [#/Vol] 0.78 10*3/uL Normal <0.87 [facility] Comment on above: Order Comment: Speci men Type: BLOOD SPECIMEN Ordering Facility: [facility] Address: [address] [place] [address] Performed By: #### 5 7021-8 #### [facility] CLIA [id number] [address] [place] [address] 11099 Monocytes/100 WBC (Bld) 7.8 % Normal [facility] Comment on above: Order Comment: Speci men Type: BLOOD SPECIMEN Ordering Facility: [facility] Address: [address] [place] [address] Performed By: #### 5 7021-8 #### [facility] CLIA [id number] [address] [place] [address] 96134 Neutrophils (Bld) [#/Vol] 4.64 10*3/uL Normal 1.45-7.50 [facility] Comment on above: Order Comment: Speci men Type: BLOOD SPECIMEN Ordering Facility: [facility] Address: [address] [place] [address] Performed By: #### 5 7021-8 #### [facility] CLIA [id number] [address] [place] [address] 06614 Neutrophils/100 WBC (Bld) 46.6 % Normal [facility] Comment on above: Order Comment: Speci men Type: BLOOD SPECIMEN Ordering Facility: [facility] Address: [address] Performed By: #### 5 7021-8 #### [facility] CLIA [id number] [address] [place] [address] 03728 Nucleated RBC (Bld) [#/Vol] 10*3/uL Normal <0.01 [facility] Comment on above: Order Comment: Speci men Type: BLOOD SPECIMEN Ordering Facility: [facility] Address: [address] [place], [place] [address] Performed By: #### 5 7021-8 #### [facility] CLIA [id number] [address] [place] [address] 72805 Nucleated RBC/100 WBC (Bld) [Ratio] 0.0 /100 WBC Normal [facility] Comment on above: Order Comment: Speci men Type: BLOOD SPECIMEN Ordering Facility: [facility] Address: [address] [place], [place] [address] Performed By: #### 5 7021-8 #### [facility] CLIA [id number] [address] [place] [address] 04017 Platelet mean volume (Bld) [Entitic vol] 9.2 fL Normal 9.0-12.7 [facility] Comment on above: Order Comment: Speci men Type: BLOOD SPECIMEN Ordering Facility: [facility] Address: [address] [place], [place] [address] Performed By: #### 5 7021-8 #### [facility] CLIA [id number] [address] [place] [address] 32626 Platelets (Bld) [#/Vol] 301 10*3/uL Normal 150-400 [facility] Comment on above: Order Comment: Speci men Type: BLOOD SPECIMEN Ordering Facility: [facility] Address: [address] [place], [place] [address] Performed By: #### 5 7021-8 #### [facility] CLIA [id number] [address] [place] [address] RBC (Bld) [#/Vol] 4.31 10*6/uL Normal 3.90-5.20 [facility] Comment on above: Order Comment: Speci men Type: BLOOD SPECIMEN Ordering Facility: [facility] Address: [address] [place] [address] Performed By: #### 5 7021-8 #### [facility] CLIA [id number] [address] [place] [address] WBC (Bld) [#/Vol] 9.97 10*3/uL Normal 3.70-11.00 [facility] Comment on above: Order Comment: Speci men Type: BLOOD SPECIMEN Ordering Facility: [facility] Address: [address] [place] [address] Performed By: #### 5 7021-8 #### [facility] CLIA [id number] [address] [place] [address] 30890 CNOVSPon 02-15-2022 CNOVSP Visit (SP) Office ([facility]) AUBRIEUZMA Figueroa Faizan ([id number]) 1955 F Date Time Provider Department 02/15/22 11:00 AM ERROL CORBIN During your visit today, we recorded the following information about you: Temperature Pulse Respiration Blood pressure 97.4 degrees 66/minute 16/minute 166/85 Weight Height 87.1 kg 1.702 m Errlo Corbin MD 02/16/2022 11:02 AM Signed PATIENT NAME: Uzma Alfred DATE: 02/15/2022 PRIMARY CARE PHYSICIAN: Florinda Flowers MD OTHER PHYSICIANS: Dr. Yeung Portions of this encounter note have been copied from my note from 02/16/2021 and has been updated where appropriate, and reflect my current medical decision making from today. CC: This is a 66 year old female with a history of breast cancer, seen for scheduled follow-up. INTERIM HISTORY: Since the patient's last visit here she underwent a left knee replacement on 01/17/2022 (Dr. Sanchez). Apparently she did not have adequate anesthesia during surgery, and since surgery has had persistent pain and swelling. Since the patient's last visit she underwent a bone density exam which revealed osteoporosis. She was started on Fosamax per PCP. She remains on calcium and vitamin D supplements. She has had no other significant medical changes. Other than left knee pain and arthritic pain she feels well. No new suspicious symptoms. MEDICATIONS: rosuvastatin (CRESTOR) 40 mg tablet amLODIPine (NORVASC) 5 mg tablet Take 5 mg by mouth. hydrALAZINE (APRESOLINE) 50 mg tablet Take 50 mg by mouth. METOPROLOL TARTRATE, SHORT ACTING, 50 mg tablet ZOLPIDEM 10 mg Tab Take 10 mg by mouth once daily. MULTIVITAMIN TAB Take one(1) tablet daily. 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 HEENT: Negative for frequent or significant headaches, No changes in hearing or vision, no nose bleeds or other nasal problems RESPIRATORY: Negative for cough, wheezing or shortness of breath. CARDIOVASCULAR: Negative for chest pain, leg swelling or palpitations. GI: Negative for abdominal discomfort, blood in stools or black stools or change in bowel habits : No history of dysuria, frequency or incontinence MUSCULOSKELETAL: Negative for: joint pain or swelling, back pain and muscle pain SKIN: Negative for lesions, rash, and itching. HEMATOLOGY/LYMPHOLOGY : Negative for prolonged bleeding, bruising easily or swollen nodes. NEURO: No history of headaches, syncope, paralysis, seizures or tremors PHYSICAL EXAM: Vitals: BP 166/85 Pulse 66 Temp 36.3 ?C (97.4 ?F) Resp 16 Ht 170.2 cm (5' 7.01 ) Wt 87.1 kg (192 lb) SpO2 97% BMI 30.06 kg/m? General appearance: well appearing, alert, in no acute distress, well-hydrated, well nourished Skin: skin color, texture, turgor normal, no suspicious rashes or lesions Head: normal Eyes: Anicteric sclera. Pupils are equally round and reactive to light. Extraocular movements are intact. Ears: negative findings: external ears normal to inspection and palpation Oropharynx: negative Neck: Supple, no adenopathy; thyroid symmetric, normal size Lymph Nodes: No Submandibular, cervical, supraclavicular, axillary, or inguinal lymphadenopathy present Breast: Left breast TRAM flap reconstruction is well-healed with no suspicious masses. Right breast reveals evidence of a previous reduction mammoplasty, but no masses or suspicious findings. Back: no tenderness to palpation Lungs: clear to auscultation, no wheezing or rhonchi Heart: Negative. RRR without murmur, gallop, or rubs. No ectopy. Abdomen: Normal abdominal exam, Abdomen soft, non-tender. Bowel sounds normal. No masses, organomegaly Rectal: Not done Extremities: Extremities normal. No deformities, edema, or skin discoloration. Good capillary refill. Musculoskeletal: No joint swelling, deformity, or tenderness. Peripheral pulses: Normal RADIOLOGY/OTHER STUDIES: 06/28/2021 Bilateral screening mammogram ([facility]) No significant suspicious findings in the right breast or left breast. Routine mammogram in 12 months recommended. 02/28/2021 Bone density DEXA ([facility]) Osteoporosis ASSESSMENT/PLAN: 1. Malignant neoplasm of left breast in female, estrogen receptor positive (HCC) (more content not included)... Normal [facility] Comprehensive metabolic 2000 panelon 02-15-2022 Albumin [Mass/Vol] 4.5 g/dL Normal 3.9-4.9 [facility] Comment on above: Order Comment: Speci men Type: BLOOD SPECIMEN Ordering Facility: [facility] Address: [address] [address] Performed By: #### 2 4323-8 #### [facility] CLIA [id number] [address] [place] [address] ALP [Catalytic activity/Vol] 82 U/L Normal 34-123 [facility] Comment on above: Order Comment: Speci men Type: BLOOD SPECIMEN Ordering Facility: [facility] Address: [address] [address] Performed By: #### 2 4323-8 #### [facility] CLIA [id number] [address] [place] [address] 54431 ALT [Catalytic activity/Vol] 29 U/L Normal 7-38 [facility] Comment on above: Order Comment: Speci men Type: BLOOD SPECIMEN Ordering Facility: [facility] Address: [address] [address] Performed By: #### 2 432-8 #### [facility] CLIA [id number] [address] [place] [address] 14548 Anion gap [Moles/Vol] 9 mmol/L Normal 9-18 [facility] Comment on above: Order Comment: Speci men Type: BLOOD SPECIMEN Ordering Facility: [facility] Address: [address] [place] [address] Performed By: #### 2 4323-8 #### [facility] CLIA [id number] [address] [place] [address] 10290 AST [Catalytic activity/Vol] 28 U/L Normal 13-35 [facility] Comment on above: Order Comment: Speci men Type: BLOOD SPECIMEN Ordering Facility: [facility] Address: [address] [address] Performed By: #### 2 4323-8 #### [facility] CLIA [id number] [address] [place] [address] Bilirubin [Mass/Vol] 1.1 mg/dL Normal 0.2-1.3 [facility] Comment on above: Order Comment: Speci men Type: BLOOD SPECIMEN Ordering Facility: [facility] Address: [address] Performed By: #### 2 4323-8 #### [facility] CLIA [id number] [address] [place] [address] Calcium [Mass/Vol] 9.7 mg/dL Normal 8.5-10.2 [facility] Comment on above: Order Comment: Speci men Type: BLOOD SPECIMEN Ordering Facility: [facility] Address: [address] [place] [address] Performed By: #### 2 4323-8 #### [facility] CLIA [id number] [address] [place] [address] 52131 Chloride [Moles/Vol] 103 mmol/L Normal 97-105 [facility] Comment on above: Order Comment: Speci men Type: BLOOD SPECIMEN Ordering Facility: [facility] Address: [address] [place], [place] [address] Performed By: #### 2 4323-8 #### [facility] CLIA [id number] [address] [place] [address] 19680 CO2 [Moles/Vol] 22 mmol/L Normal 22-30 [facility] Comment on above: Order Comment: Speci men Type: BLOOD SPECIMEN Ordering Facility: [facility] Address: [address] Performed By: #### 2 4323-8 #### [facility] CLIA [id number] [address] [place] [address] Creatinine [Mass/Vol] 0.82 mg/dL Normal 0.58-0.96 [facility] Comment on above: Order Comment: Speci men Type: BLOOD SPECIMEN Ordering Facility: [facility] Address: [address] Performed By: #### 2 4323-8 #### [facility] CLIA [id number] [address] [place] [address] 96501 ESTIMATED GLOMERULAR FILTRATION RATE 79 mL/min/1.73m??? Normal >=60 [facility] Comment on above: Order Comment: Luz Marina peters Type: BLOOD SPECIMEN Ordering Facility: [facility] Address: [address] [place], [place] [address] Result Comment: Lillie mated Glomerular Filtration Rate (eGFR) is calculated using the 2020 CKD-EPI creatinine equation. This equation utilizes serum creatinine, sex, and age as parameters. The creatinine assay has traceable calibration to isotope dilution-mass spectrometry. Refer to KDIGO guidelines for clinical interpretation. In patients with unstable renal function, e.g. those with acute kidney injury, the eGFR may not accurately reflect actual GFR. Performed By: #### 2 4323-8 #### [facility] CLIA [id number] [address] [place] [address] 85632 Glucose [Mass/Vol] 128 mg/dL High 74-99 [facility] Comment on above: Order Comment: Luz Marina peters Type: BLOOD SPECIMEN Ordering Facility: [facility] Address: [address] [place] [address] Result Comment: The [place] [employer] (ADA) provides guidance for cutoff values for fasting glucose and random glucose. The ADA defines fasting as no caloric intake for at least 8 hours. Fasting plasma glucose results between 100 to 125 mg/dL indicate increased risk for diabetes (prediabetes). Fasting plasma glucose results greater than or equal to 126 mg/dL meet the criteria for diagnosis of diabetes. In the absence of unequivocal hyperglycemia, results should be confirmed by repeat testing. In a patient with classic symptoms of hyperglycemia or hyperglycemic crisis, random plasma glucose results greater than or equal to 200 mg/dL meet the criteria for diagnosis of diabetes. Reference: Standards of Medical Care in Diabetes 2016, [place] [employer]. Diabetes Care. 2016.39(Suppl 1). Performed By: #### 2 4323-8 #### [facility] CLIA [id number] [address] [place] [address] 15495 Potassium [Moles/Vol] 3.9 mmol/L Normal 3.7-5.1 [facility] Comment on above: Order Comment: Speci men Type: BLOOD SPECIMEN Ordering Facility: [facility] Address: [address] [place] [address] Performed By: #### 2 4323-8 #### [facility] CLIA [id number] [address] [place] [address] 62487 Protein [Mass/Vol] 7.1 g/dL Normal 6.3-8.0 [facility] Comment on above: Order Comment: Speci men Type: BLOOD SPECIMEN Ordering Facility: [facility] Address: [address] [place] [address] Performed By: #### 2 4323-8 #### [facility] CLIA [id number] [address] [place] [address] 05155 Sodium [Moles/Vol] 134 mmol/L Low 136-144 [facility] Comment on above: Order Comment: Speci men Type: BLOOD SPECIMEN Ordering Facility: [facility] Address: [address] [place] [address] Performed By: #### 2 4323-8 #### [facility] CLIA [id number] [address] [place] [address] 87035 Urea nitrogen [Mass/Vol] 23 mg/dL High 7-21 [facility] Comment on above: Order Comment: Speci men Type: BLOOD SPECIMEN Ordering Facility: [facility] Address: [address] [place] [address] Performed By: #### 2 4323-8 #### [facility] CLIA [id number] [address] [place] [address] 26049 Estela 02-06-2022 JOSE Telephone ([facility]) UZMA ALFRED ([id number]) 1955 F Date Time Provider Department 02/06/22 ERROL CORBIN During your visit today, we recorded the following information about you: Corinne Reyes MA 02/06/2022 11:[address]/sign lab orders for 02/15/22. Thanks. Corinne Reyes MA Allergies As of Date: 02/06/2022 Noted Allergy Reaction FENTANYL 02/15/2021 16 - Unknown PENICILLINS 02/16/2021 2 - Rash PERCOCET (OXYCODONE-ACETAMINOP HEN)10/09/2005 8 - GI Upset SULFA DYNE 09/17/2012 2 - Rash TERBINAFINE 04/30/2018 2 - Rash Date Reviewed: 02/21/2021 Reviewed by: Lilia Castro - Fully Assessed Reason for Visit: Lab Orders [1688] Primary Visit Diagnosis:Malignant neoplasm of upper-outer quadrant of left breast in female, estrogen receptor positive (HCC) [C50.412, Z17.0] Order(s):CBC + DIFF [SQCBCDIF] Order #: [id number] FUTURE COMP METABOLIC PANEL [SQCMP] Order #: [id number] FUTURE Prescriptions as of 02/07/2022 - rosuvastatin (CRESTOR) 40 mg tablet - amLODIPine (NORVASC) 5 mg tablet Take 5 mg by mouth. - hydrALAZINE (APRESOLINE) 50 mg tablet Take 50 mg by mouth. - METOPROLOL TARTRATE, SHORT ACTING, 50 mg tablet - ZOLPIDEM 10 mg Tab Take 10 mg by mouth once daily. - MULTIVITAMIN TAB Take one(1) tablet daily. Problem List As Of Date 02/06/2022 Noted Resolved PERS HX OF BREAST MALIGNANCY [Z85.3] 08/13/2005 OPEN WOUND ANT ABDOMEN-COMP [S31.109A] 10/01/2005 Malignant neoplasm of upper-outer quadrant of f* Hip joint replacement by other means [Z96.649] Encounter Status:Closed by LILIA CASTRO on 02/07/22 Normal [facility] Q - PROTHROMBIN TIME WITH IN [place] 12-21-2021 INR Coag (PPP) [Relative time] 0.9 {INR} Normal [facility] Surgical Resident Comment on above: Order Comment: [facility] performed at: [employer] [employer] [facility], [address] , [address] [place] [address], [address] [place] [address], Banquet Waiter/Waitress: Mariano Paul MD [facility] Date/Time: [facility] Results Received Date/Time: [facility] Reported Date/Time: FASTING: NO Result Comment: Refe rence Range 0.9-1.1 Moderate-intensity Warfarin Therapy 2.0-3.0 Higher-intensity Warfarin Therapy 3.0-4.0 Performed By: #### 7 63X, 26F, %SBNOCULI, 3020X #### [facility] [address] [place] [address] PT Coag (PPP) [Time] 9.3 s Normal 9.0-11.5 [facility] Specialist Comment on above: Order Comment: [facility] performed at: [employer], [employer] [facility], [address] , [address] [place] [address], [address] [place] [address], [employer] Waiter/Waitress: Mariano Paul MD [facility] Date/Time: [facility] Results Received Date/Time: [facility] Reported Date/Time: FASTING: NO Result Comment: For additional information, please refer to [email or web address] Holdings/faq/[id number] (This link is being provided for informational/ educational purposes only.) Performed By: #### 7 63X, 26F, %SBNOCULI, 3020X #### [facility] [address] [place] [address] Q - PTTon 12-21-2021 PARTIAL THROMBOPLASTIN TIME, ACTIVATED 27 sec Normal 23-32 [facility] Surgical Resident Comment on above: Order Comment: [facility] performed at: [employer], [employer] [facility], [address] , [address] [place] [address], [phone], Banquet Waiter/Waitress: Mariano Paul MD [facility] Collection Date/Time: [facility] Results Received Date/Time: [facility] Reported Date/Time: FASTING: NO Result Comment: This test has not been validated for monitoring unfractionated heparin therapy. For testing that is validated for this type of therapy, please refer to the Heparin Anti-Xa assay (test code 86415). For additional information, please refer to http://education.Company.com/faq/IDE648 (This link is being provided for informational/educational purposes only.) Performed By: #### 7 63X, 26F, %SBNOCULI, 3020X #### [facility] [address] [place] [address] Q - UR CULT REFLEXon 022 REFLEXIVE URINE CULTURE SEE NOTE Normal N [facility] Specialist Comment on above: Order Comment: [facility] performed at: [employer], [employer] [facility], [address] , [address] [place] [address], [phone], Banquet Waiter/Waitress: Mariano Paul MD [facility] Date/Time: [facility] Results Received Date/Time: [facility] Reported Date/Time: FASTING: NO Result Comment: NO C ULTURE INDICATED Performed By: #### 7 63X, 26F, %SBNOCULI, 3020X #### [facility] [address] [place] [address] Q - URINALYSIS,COMPLETE,WITH REFLEX TO CULTUREon 12-21-2021 Appearance (U) CLEAR Normal CLEAR [facility] Specialist Comment on above: Order Comment: [facility] performed at: [employer], [employer] [facility], [address], [address] [place] [address], [phone], Banquet Waiter/Waitress: Mariano Paul MD [facility] Date/Time: [id number] [facility] Results Received Date/Time: [facility] Reported Date/Time: FASTING: NO Performed By: #### 7 63X, 26F, %SBNOCULI, 3020X #### [facility] [address] [place] [address] BACTERIA NONE SEEN Normal NONE SEEN [facility] Surgical Resident Comment on above: Order Comment: [facility] performed at: [employer], [employer] [facility], [address] , [address] [place] [address], [address] [place] [address], Banquet Waiter/Waitress: Mariano Paul MD [facility] Collection Date/Time: [facility] Results Received Date/Time: [facility] Reported Date/Time: FASTING: NO Performed By: #### 7 63X, 26F, %SBNOCULI, 3020X #### [facility] [address] [place] [address] Bilirubin Ql (U) Negative Normal NEGATIVE [facility] Surgical Resident Comment on above: Order Comment: [facility] performed at: [employer], [employer] [facility], [address] , [address] [place] [address], [address] [place] [address], Banquet Waiter/Waitress: Mariano Paul MD [facility] Collection Date/Time: [facility] Results Received Date/Time: [facility] Reported Date/Time: FASTING: NO Performed By: #### 7 63X, 26F, %SBNOCULI, 3020X #### [facility] Default [address] [place] [address] Color (U) DARK YELLOW Normal YELLOW [facility] Surgical Resident Comment on above: Order Comment: [facility] performed at: [employer], [employer] [facility], [address] , [address] [place] [address], [address] [place] [address], Banquet Waiter/Waitress: Mariano Paul MD [facility] Collection Date/Time: [facility] Results Received Date/Time: [facility] Reported Date/Time: FASTING: NO Performed By: #### 7 63X, 26F, %SBNOCULI, 3020X #### [facility] [address] [place] [address] Glucose Ql (U) Negative Normal NEGATIVE [facility] Surgical Resident Comment on above: Order Comment: [facility] performed at: [employer], [employer] [facility], [address] , [address] [place] [address], [address] [place] [address], Banquet Waiter/Waitress: Mariano Paul MD [facility] Date/Time: [facility] Results Received Date/Time: [facility] Reported Date/Time: FASTING: NO Performed By: #### 7 63X, 26F, %SBNOCULI, 3020X #### [facility] [address] [place] [address] HYALINE CAST NONE SEEN Normal NONE SEEN [facility] Surgical Resident Comment on above: Order Comment: [facility] performed at: [employer], [employer] [facility], [address] [facility], [address] [place] [address], [address] [place] [address], Banquet Waiter/Waitress: Mariano Paul MD [facility] Collection Date/Time: [facility] Results Received Date/Time: [facility] Reported Date/Time: FASTING: NO Performed By: #### 7 63X, 26F, %SBNOCULI, 3020X #### [facility] [address] [place] [address] Ketones Ql (U) TRACE Abnormal NEGATIVE [facility] Specialist Comment on above: Order Comment: [facility] performed at: [employer], [employer] [facility], [address] [facility], [address] [place] [address], [address] [place] [address], Banquet Waiter/Waitress: Mariano Paul MD [facility] Collection Date/Time: [facility] Results Received Date/Time: [facility] Reported Date/Time: FASTING: NO Performed By: #### 7 63X, 26F, %SBNOCULI, 3020X #### [facility] [address] [place] [address] Leukocyte esterase Test strip Ql (U) Negative Normal NEGATIVE [facility] Specialist Comment on above: Order Comment: [facility] performed at: [employer], [employer] [facility], [address] [facility], [address] [place] [address], [address] [place] [address], Banquet Waiter/Waitress: Mariano Paul MD [facility] Collection Date/Time: [facility] Results Received Date/Time: [facility] Reported Date/Time: FASTING: NO Performed By: #### 7 63X, 26F, %SBNOCULI, 3020X #### [facility] [address] [place] [address] Nitrite Ql (U) Negative Normal NEGATIVE [facility] Surgical Resident Comment on above: Order Comment: [facility] performed at: [employer], [employer] [facility], [address] , [address] [place] [address], [address] [place] [address], Banquet Waiter/Waitress: Mariano Paul MD [facility] Date/Time: [facility] Results Received Date/Time: [facility] Reported Date/Time: FASTING: NO Performed By: #### 7 63X, 26F, %SBNOCULI, 3020X #### [facility] [address] [place] [address] OCCULT BLOOD Negative Normal NEGATIVE [facility] Surgical Resident Comment on above: Order Comment: [facility] performed at: [employer], [employer] [facility], [address] , [address] [place] [address], [address] [place] [address], Banquet Waiter/Waitress: Mariano Paul MD [facility] Date/Time: [facility] Results Received Date/Time: [facility] Reported Date/Time: FASTING: NO Performed By: #### 7 63X, 26F, %SBNOCULI, 3020X #### [facility] [address] [place] [address] pH (U) [pH] Normal 5.0-8.0 [facility] Surgical Resident Comment on above: Order Comment: [facility] performed at: [employer], [employer] [facility], [address] , [address] [place] [address], [address] [place] [address], Banquet Waiter/Waitress: Mariano Paul MD [facility] Collection Date/Time: [facility] Results Received Date/Time: [facility] Reported Date/Time: FASTING: NO Performed By: #### 7 63X, 26F, %SBNOCULI, 3020X #### [facility] Default [address] [place] [address] Protein Ql (U) TRACE Abnormal NEGATIVE [facility] Specialist Comment on above: Order Comment: [facility] performed at: [employer], [employer] [facility], [address] [facility], [address] [place] [address], [address] [place] [address], Banquet Waiter/Waitress: Mariano Paul MD [facility] Collection Date/Time: [facility] Results Received Date/Time: [facility] Reported Date/Time: FASTING: NO Performed By: #### 7 63X, 26F, %SBNOCULI, 3020X #### [facility] Default [address] [place] [address] RBC NONE SEEN Normal < OR = 2 [facility] Surgical Resident Comment on above: Order Comment: [facility] performed at: [employer], [employer] [facility], [address] [place] [address], [address] [place] [address], [address] [place] [address], Banquet Waiter/Waitress: Mariano Paul MD [facility] Date/Time: [facility] Results Received Date/Time: [facility] Reported Date/Time: FASTING: NO Performed By: #### 7 63X, 26F, %SBNOCULI, 3020X #### [facility] Default [address] [place] [address] Specific gravity (U) [Rel density] 1.029 Normal 1.001-1.035 [facility] Surgical Resident Comment on above: Order Comment: [facility] performed at: [employer], [employer] [facility], [address] [facility], [address] [place] [address], [address] [place] [address], Banquet Waiter/Waitress: Mariano Paul MD [facility] Date/Time: [facility] Results Received Date/Time: [facility] Reported Date/Time: FASTING: NO Performed By: #### 7 63X, 26F, %SBNOCULI, 3020X #### [facility] Default [address] [place] [address] SQUAMOUS EPITHELIAL CELLS NONE SEEN Normal < OR = 5 [facility] Surgical Resident Comment on above: Order Comment: [facility] performed at: [employer], [employer] [facility], [address] [facility], [address] [place] [address], [phone], Banquet Waiter/Waitress: Mariano Paul MD [facility] Date/Time: [facility] Results Received Date/Time: [facility] Reported Date/Time: FASTING: NO Performed By: #### 7 63X, 26F, %SBNOCULI, 3020X #### [facility] Default [address] [place] [address] WBC NONE SEEN Normal < OR = 5 [facility] Specialist Comment on above: Order Comment: [facility] performed at: [facility], [employer] [facility], [address] , [address] [place], [address], Banquet Waiter/Waitress: Mariano Paul MD [facility] Date/Time: [facility] Results Received Date/Time: [facility] Reported Date/Time: FASTING: NO Performed By: #### 7 63X, 26F, %SBNOCULI, 3020X #### [facility] Default [address] [place] [address] Complete Blood Count with Au to Diffon 12-20-2021 Basophils (Bld) [#/Vol] 0.03 10*3/uL Normal 0.00-0.20 [facility] Specialist Comment on above: Performed By: #### C BCAD, CMP #### [facility] [address] [place], [place] [id number] Basophils/100 WBC (Bld) 0.3 % Normal N [facility] Comment on above: Performed By: #### C BCAD, CMP #### [facility] [address] [place], [place] [id number] Eosinophils (Bld) [#/Vol] 0.02 10*3/uL Normal 0.02-0.50 [facility] Specialist Comment on above: Performed By: #### C BCAD, CMP #### [facility] [address] [place], [place] [id number] Eosinophils/100 WBC (Bld) 0.2 % Normal [facility] Specialist Comment on above: Performed By: #### C BCAMoody, CMP #### [facility] [address] [place], [place] [id number] Erythrocyte distribution width (RBC) [Ratio] 14.3 % Normal 11.0-15.0 [facility] Specialist Comment on above: Performed By: #### C BCAD, CMP #### [facility] [address] [place], [place] [id number] Hematocrit (Bld) [Volume fraction] 46.9 % Normal 35.0-47.0 [facility] Specialist Comment on above: Performed By: #### C BCAMoody, CMP #### [facility] [address] [place], [place] [id number] Hemoglobin (Bld) [Mass/Vol] 14.3 g/dL Normal 11.6-15.5 [facility] Specialist Comment on above: Performed By: #### C BCAD, CMP #### [facility] [address] [place], [place] [id number] Lymphocytes (Bld) [#/Vol] 2.2 10*3/uL Normal 0.9-3.9 [facility] Specialist Comment on above: Performed By: #### C BCAMoody, CMP #### [facility] [address] [place], [place] [id number] Lymphocytes/100 WBC (Bld) 19.7 % Normal [facility] Specialist Comment on above: Performed By: #### C BCAD, CMP #### [facility] [address] [place], [place] [id number] MCH (RBC) [Entitic mass] 30.0 pg Normal 27.0-33.0 [facility] Specialist Comment on above: Performed By: #### C BCAD, CMP #### [facility] [address] [place], [place] [id number] MCHC (RBC) [Mass/Vol] 30.5 g/dL Low 32.0-36.0 [facility] Comment on above: Performed By: #### C BCAD, CMP #### [facility] [address] [place], [place] [id number] MCV (RBC) [Entitic vol] 98 fL Normal 80-100 [facility] Comment on above: Performed By: #### C BCAD, CMP #### [facility] [address] [place], [place] [id number] Monocytes (Bld) [#/Vol] 0.5 10*3/uL Normal 0.2-0.9 [facility] Specialist Comment on above: Performed By: #### C BCAD, CMP #### [facility] [address] [place], [place] [id number] Monocytes/100 WBC (Bld) 4.3 % Normal [facility] Comment on above: Performed By: #### C BCAD, CMP #### [facility] [address] [place], [place] [id number] Neutrophils (Bld) [#/Vol] 8.3 10*3/uL High 1.5-7.8 [facility] Specialist Comment on above: Performed By: #### C BCAD, CMP #### [facility] [address] [place], [place] [id number] Neutrophils/100 WBC (Bld) 75.2 % Normal [facility] Specialist Comment on above: Performed By: #### C BCAD, CMP #### [facility] [address] [place], [place] [id number] Platelet mean volume (Bld) [Entitic vol] 10.80 fL Normal 7.50-12.50 [facility] Comment on above: Performed By: #### C BCAD, CMP #### [facility] [address] [place], [place] [id number] Platelets (Bld) [#/Vol] 303 10*3/uL Normal 140-400 [facility] Specialist Comment on above: Performed By: #### C BCAD, CMP #### [facility] [address] [place], [place] [id number] RBC (Bld) [#/Vol] 4.77 10*6/uL Normal 3.90-5.20 [facility] Specialist Comment on above: Performed By: #### C BCAD, CMP #### [facility] [address] [place], [place] [id number] RDW-SD 52.3 fL High 37.0-50.0 [facility] Specialist Comment on above: Performed By: #### C BCAD, CMP #### [facility] [address] [place], [place] [id number] WBC (Bld) [#/Vol] 11.1 10*3/uL High 3.8-11.0 [facility] Comment on above: Performed By: #### C BCAD, CMP #### [facility] [address] [place], [place] [id number] Comprehensive Metabolic Pane raffaele 12-20-2021 Albumin [Mass/Vol] 5.0 g/dL Normal 3.6-5.1 [facility] Comment on above: Performed By: #### C BCAD, CMP #### [facility] [address] [place], [place] [id number] Albumin/Globulin [Mass ratio] 1.9 {ratio} Normal 1.0-2.5 [facility] Specialist Comment on above: Performed By: #### C BCAD, CMP #### [facility] [address] [place], [place] [id number] ALP [Catalytic activity/Vol] 68 U/L Normal 35-119 [facility] Specialist Comment on above: Performed By: #### C BCAD, CMP #### [facility] [address] [place], [place] [id number] ALT [Catalytic activity/Vol] 112 U/L High 6-33 [facility] Specialist Comment on above: Result Comment: 10/04 Female reference range changed. Performed By: #### C BCAD, CMP #### [facility] [address] [place], [place] [id number] Anion gap [Moles/Vol] 21 mmol/L High 12-20 [facility] Comment on above: Result Comment: Effe ctive 11/09/2019 reference range changed. Performed By: #### C BCAD, CMP #### [facility] [address] [place], [place] [id number] AST [Catalytic activity/Vol] 84 U/L High 9-34 [facility] Specialist Comment on above: Performed By: #### C BCAD, CMP #### [facility] [address] [place], [place] [id number] Bilirubin [Mass/Vol] 1.12 mg/dL Normal 0.30-1.20 [facility] Comment on above: Performed By: #### C BCAD, CMP #### [facility] [address] [place], [place] [id number] BUN/CREA 30 Ratio High 6-22 [facility] Comment on above: Performed By: #### C BCAD, CMP #### [facility] [address] [place], [place] [id number] Calcium [Mass/Vol] 10.0 mg/dL Normal 8.6-10.2 [facility] Comment on above: Performed By: #### C BCAD, CMP #### [facility] [address] [place], [place] [id number] Chloride [Moles/Vol] 101 mmol/L Normal 98-107 [facility] Comment on above: Performed By: #### C BCAD, CMP #### [facility] [address] [place], [place] [id number] CO2 [Moles/Vol] 19 mmol/L Low 20-31 [facility] Comment on above: Performed By: #### C BCAD, CMP #### [facility] [address] [place], [place] [id number] Creatinine [Mass/Vol] 0.8 mg/dL Normal 0.6-1.4 [facility] Comment on above: Performed By: #### C BCAD, CMP #### [facility] [address] [place], [place] [id number] eGFRAA 86 mL/min/1.73m2 Normal >60 [facility] Comment on above: Performed By: #### C BCAD, CMP #### [facility] [address] [place], [place] [id number] eGFRNAA 71 mL/min/1.73m2 Normal >60 [facility] Comment on above: Performed By: #### C BCAD, CMP #### [facility] [address] [place], [place] [id number] Globulin (S) [Mass/Vol] 2.6 g/dL Normal 1.9-3.7 [facility] [place] Comment on above: Performed By: #### C BCAD, CMP #### [facility] [address] [place], [place] [id number] Glucose [Mass/Vol] 154 mg/dL High 65-99 Sara molina [place] Surgical Resident Comment on above: Result Comment: For FASTING Glucose --- ADA reference ranges: Normal 65-99 mg/dl Prediabetes 100-125 Diabetes >/= 126 Performed By: #### C BCAD, CMP #### [facility] [address] [place], [place] [id number] Potassium [Moles/Vol] 4.5 mmol/L Normal 3.5-5.5 [facility] [place] [facility] Comment on above: Performed By: #### C BCAD, CMP #### [facility] [address] [place], [place] [id number] Protein [Mass/Vol] 7.6 g/dL Normal 6.1-8.1 Sara molina [place] Surgical Resident Comment on above: Performed By: #### C BCAD, CMP #### [facility] [address] [place], [place] [id number] Sodium [Moles/Vol] 137 mmol/L Normal 135-146 Sara molina [place] Surgical Resident Comment on above: Performed By: #### C BCAD, CMP #### [facility] [address] [place], [place] [id number] Urea nitrogen [Mass/Vol] 24 mg/dL Normal 7-25 [facility] Surgical Resident Comment on above: Performed By: #### C BCAD, CMP #### [facility] [address] [place], [place] [id number] XR femur BIon 12-20-2021 XR femur BI [facility] [place] [address] XRay Report Signed Patient: Uzma Alfred MR#: [id number] 6 : 1955 Acct:[id number] Age/Sex: 66 / F ADM Date: 12/20/21 Loc: ICXD Room: Type: [facility] Attending Dr: Ryan Milton PA-C Ordering Provider: Ryan Milton PA-C Date of Service: 12/20/21 XR/XR femur BI: [id number] ([id number]) XR/XR tibia/fibula BI: [id number] Copies to: Ryan Milton PA-C XR tibia/fibula BI, XR femur BI 12/20/2021 2:23 PM SIGNS AND SYMPTOMS: Presurgical testing for total left knee arthroplasty. Bilateral knee pain PROTOCOL: Frontal radiograph of the femurs, tibia, and fibula bilaterally COMPARISON: None FINDINGS: There is total hip replacement bilaterally. There is posterior fusion hardware in the lower lumbar spine. The right lower extremity measures 83.9 cm in length. The left lower extremity measures 84.8 cm. There is 9 degrees of valgus angulation of the right knee with 6 degrees of valgus angulation on the left. There is narrowing of the weightbearing joint spaces bilaterally. There is no fracture. XR/XR tibia/fibula BI IMPRESSION: Leg length discrepancy as above with the left leg measuring roughly 1 cm greater in length compared to the right. There is valgus angulation of the knees bilaterally measuring 9 degrees on the right and 60 degrees on the left. Degenerative changes are noted in the weightbearing joint spaces bilaterally. Impression dictated by: Fernando Kirby M.D.12/20/2021 3:42 PM Dictation Location: [place] [address] Transcribed By: [facility] 12/20/21 1542 Dictated By: Fernando Kirby II, MD 12/20/21 1538 Signed By: 12/20/21 1542 Normal [facility] WADE Antinuclear Antibodieson 12-18-2021 Antinuclear Abs, IFA Positive Critically abnormal . [facility] Comment on above: Result Comment: Nega tive <1:80 Borderline 1:80 Positive >1:80 Performed By: #### L UPANTCOAG #### [facility] , #### ADDONUAPLUS #### [address] Note 1 Normal . [facility] Comment on above: Result Comment: For more information about Hep-2 cell patterns use ANApatterns.org, the official website for the International Consensus on Antinuclear Antibody (WADE) Patterns (ICAP). A positive WADE result may occur in healthy individuals (low titer) or be associated with a variety of diseases. See interpretation chart which is not all inclusive: Pattern Antigen Detected Suggested Disease Association Homogeneous DNA(ds,ss), SLE - High titers Nucleosomes, Histones Drug-induced SLE Speckled Sm, TRANSPORTATION PROJECT MANAGER, SCL-70, SLE,MCTD,PSS (diffuse form), SS-A/SS-B Sjogrens Nucleolar SCL-70, PM-1/SCL High titers Scleroderma, PM/DM Centromere Centromere PSS (limited form) w/Crest syndrome variable Nuclear Dot Sp100,j39-ycnurb Primary Biliary Cirrhosis Nuclear GP210, Primary Biliary Cirrhosis Membrane alan A,B,C Performed at: [facility] [id number] [employer] Laboratory Director: Cody Williamson PhD, Phone: [phone] Performed By: #### L UPANTCOAG #### [facility] , #### ADDONUAPLUS #### [address] Speckled Pattern 1:[address] [facility] Comment on above: Result Comment: Dens e Fine Speckled pattern is noted. This pattern suggests the presence of DFS70 antibody which has a low prevalence in systemic autoimmune rheumatic diseases. ICAP nomenclature: AC-2,4,5,29 Performed By: #### L UPANTCOAG #### [facility] , #### ADDONUAPLUS #### [address] Aldolaseon 12-18-2021 Aldolase 7.7 U/L Normal 3.3-10.3 [facility] Comment on above: Result Comment: Perf ormed at: [facility] [address] [id number] [employer] Laboratory Director: Cody Williamson PhD, Phone: [phone] PERFORMED BY: [place] [address] PATHOLOGIST PAPER INSPECTOR GIFTY CANO M.D. Performed By: #### A LDOLASE #### [facility] , Antithyroglobulin Abon 12-18 Antithyroglobulin Ab <1.0 Normal 0.0-0.9 [facility] Comment on above: Result Comment: Thyr oglobulin Antibody measured by [email or web address] Methodology Performed at: [address] [id number] [employer] Laboratory Director: Cody Williamson PhD, Phone: [phone] Performed By: #### L UPANTCOAG #### [facility] , #### ADDONUAPLUS #### [place] [address] [place] C-Reactive Proteinon 022 C-Reactive Protein 0.5 mg/dL Normal 0.0-1.0 [facility] Comment on above: Performed By: #### L UPANTCOAG #### [facility] , #### ADDONUAPLUS #### [address] Chromatin Antibodyon 022 Chromatin Antibody <0.2 Normal 0.0-0.9 [facility] Comment on above: Result Comment: Perf ormed at: [facility] [place] [address] [employer] Laboratory Director: Cody Williamson PhD, Phone: [phone] Performed By: #### L UPANTCOAG #### [facility] , #### ADDONUAPLUS #### [address] Complement C3on 12-18-2021 Complement C3 150 mg/dL Normal 82-167 [facility] Comment on above: Result Comment: Perf ormed at: [facility] [place] [address] [employer] Laboratory Director: Cody Williamson PhD, Phone: [phone] Performed By: #### C H50, C4, C3 #### [facility] , #### ESR, CBC #### [address] Complement C4on 12-18-2021 Complement C4 20 mg/dL Normal 12-38 [facility] Comment on above: Performed By: #### C H50, C4, C3 #### [facility] , #### ESR, CBC #### [address] Complement Total (CH50)on Complement Total (CH50) >60 Normal >41 [facility] Comment on above: Result Comment: Age Male Female 1 - 30 days Not Estab. Not Estab. 31 days - 6 months >32 >20 7 months - 17 years >39 >39 >17 years >41 >41 NOTE: The adult ( >17 years ) reference interval range is used to flag abnormals on this report. If the patient is 17 years old or younger, use the table above to determine out of range values. Performed at: [facility] [id number] [employer] Laboratory Director: Cody Williamson PhD, Phone: [phone] PERFORMED BY: [place] [address] PATHOLOGIST PAPER INSPECTOR GIFTY CANO M.D. Performed By: #### C H50, C4, C3 #### [facility] , #### ESR, CBC #### [address] Complete Blood Count Auto Di ffon 12-18-2021 Basophils (Bld) [#/Vol] 0.1 10*3/uL Normal 0.0-0.2 [facility] Comment on above: Performed By: #### C H50, C4, C3 #### [facility] , #### ESR, CBC #### [address] Basophils/100 WBC (Bld) 0.4 % Normal . [facility] Comment on above: Performed By: #### C H50, C4, C3 #### [facility] , #### ESR, CBC #### [address] Eosinophils (Bld) [#/Vol] 0.0 10*3/uL Normal 0.0-0.45 [facility] Comment on above: Performed By: #### C H50, C4, C3 #### [facility] , #### ESR, CBC #### [address] Eosinophils/100 WBC (Bld) 0.4 % Normal . [facility] Comment on above: Performed By: #### C H50, C4, C3 #### [facility] , #### ESR, CBC #### [address] Erythrocyte distribution width (RBC) [Ratio] 13.9 % Normal 11.9-15.3 [facility] Comment on above: Performed By: #### C H50, C4, C3 #### [facility] , #### ESR, CBC #### [address] Hematocrit (Bld) [Volume fraction] 42.6 % Normal 34.0-46.4 [facility] Comment on above: Performed By: #### C H50, C4, C3 #### [facility] , #### ESR, CBC #### [address] Hemoglobin (Bld) [Mass/Vol] 14.3 g/dL Normal 11.8-15.4 [facility] Comment on above: Performed By: #### C H50, C4, C3 #### [facility] , #### ESR, CBC #### [address] Lymphocytes (Bld) [#/Vol] 1.5 10*3/uL Normal 1.00-4.8 [facility] Comment on above: Performed By: #### C H50, C4, C3 #### [facility] , #### ESR, CBC #### [address] Lymphocytes/100 WBC (Bld) 11.6 % Normal . [facility] Comment on above: Performed By: #### C H50, C4, C3 #### [facility] , #### ESR, CBC #### [address] MCH (RBC) [Entitic mass] 30.6 pg Normal 24.7-34.3 [facility] Comment on above: Performed By: #### C H50, C4, C3 #### [facility] , #### ESR, CBC #### [address] MCV (RBC) [Entitic vol] 90.9 fL Normal 80-100 [facility] Comment on above: Performed By: #### C H50, C4, C3 #### [facility] , #### ESR, CBC #### [address] Mean Corpuscular HGB Conc 33.7 g/dL Normal 32.0-35.0 [facility] Comment on above: Performed By: #### C H50, C4, C3 #### [facility] , #### ESR, CBC #### [address] Monocytes (Bld) [#/Vol] 0.6 10*3/uL Normal 0.0-0.8 [facility] Comment on above: Performed By: #### C H50, C4, C3 #### [facility] , #### ESR, CBC #### [address] Monocytes/100 WBC (Bld) 4.9 % Normal . [facility] Comment on above: Performed By: #### C H50, C4, C3 #### [facility] , #### ESR, CBC #### [address] Neutrophils (Bld) [#/Vol] 10.9 10*3/uL High 1.8-7.7 [facility] Comment on above: Performed By: #### C H50, C4, C3 #### [facility] , #### ESR, CBC #### [address] Neutrophils/100 WBC (Bld) 82.7 % Normal . [facility] Comment on above: Performed By: #### C H50, C4, C3 #### [facility] , #### ESR, CBC #### [address] Nucleated RBC/100 WBC (Bld) [Ratio] 0.1 % Normal 0-0.5 [facility] Comment on above: Performed By: #### C H50, C4, C3 #### [facility] , #### ESR, CBC #### [address] Platelet mean volume (Bld) [Entitic vol] 8.7 fL Normal 6.3-10.7 [facility] Comment on above: Performed By: #### C H50, C4, C3 #### [facility] , #### ESR, CBC #### [address] Platelets (Bld) [#/Vol] 258 10*3/uL Normal 150-450 [facility] Comment on above: Performed By: #### C H50, C4, C3 #### [facility] , #### ESR, CBC #### [address] RBC (Bld) [#/Vol] 4.68 10*6/uL Normal 3.60-5.00 [facility] Comment on above: Performed By: #### C H50, C4, C3 #### [facility] , #### ESR, CBC #### [facility] [address] [place] [address] WBC (Bld) [#/Vol] 13.2 10*3/uL High 4.5-11.0 [facility] Comment on above: Performed By: #### C H50, C4, C3 #### [facility] , #### ESR, CBC #### [address] Comprehensive Metabolic Pane raffaele 12-18-2021 Albumin [Mass/Vol] 4.1 g/dL Normal 3.2-5.5 [facility] Comment on above: Performed By: #### L UPANTCOAG #### [facility] , #### ADDONUAPLUS #### [facility] [address] [place] [address] Albumin/Globulin [Mass ratio] 1.4 {ratio} Normal [facility] Comment on above: Performed By: #### L UPANTCOAG #### [facility] , #### ADDONUAPLUS #### [address] ALP [Catalytic activity/Vol] 51 U/L Normal 32-92 [facility] Comment on above: Performed By: #### L UPANTCOAG #### [facility] , #### ADDONUAPLUS #### [address] ALT [Catalytic activity/Vol] 61 U/L High 10-60 [facility] Comment on above: Performed By: #### L UPANTCOAG #### [facility] , #### ADDONUAPLUS #### [facility] [address] [place] [address] AST [Catalytic activity/Vol] 33 U/L Normal 10-42 [facility] Comment on above: Performed By: #### L UPANTCOAG #### [facility] , #### ADDONUAPLUS #### [address] Bilirubin [Mass/Vol] 1.4 mg/dL High 0.3-1.2 [facility] Comment on above: Result Comment: Samp les from patients who have taken Naproxen have shown spurious elevation in Total Bilirubin levels. A metabolite of Naproxen, O-desmethylnaproxen, has been shown to interfere with the Jendrassik-Grof method for measuring Total Bilirubin. Performed By: #### L UPANTCOAG #### [facility] , #### ADDONUAPLUS #### [address] Calcium [Mass/Vol] 9.4 mg/dL Normal 8.2-10.2 [facility] Comment on above: Performed By: #### L UPANTCOAG #### [facility] , #### ADDONUAPLUS #### [place] [address] [place] Chloride [Moles/Vol] 104 mmol/L Normal 95-114 [facility] Comment on above: Performed By: #### L UPANTCOAG #### [facility] , #### ADDONUAPLUS #### [facility] [address] [place] [address] [place] CO2 [Moles/Vol] 22.5 mmol/L Normal 22.0-30.0 [facility] Comment on above: Performed By: #### L UPANTCOAG #### [facility] , #### ADDONUAPLUS #### [facility] [address] [place] [address] [place] Creatinine [Mass/Vol] 1.07 mg/dL High 0.44-1.03 [facility] Comment on above: Performed By: #### L UPANTCOAG #### [facility] , #### ADDONUAPLUS #### [address] Estimated GFR ( Lexis > 60 [facility] Comment on above: Result Comment: GFR estimated reference range: According to KDOQI guidelines, <60 ml/min/1.73m2 is sufficient to diagnose a patient with chronic kidney disease. Performed By: #### L UPANTCOAG #### [facility] , #### ADDONUAPLUS #### [address] Estimated GFR (Non- Am 51 [facility] Comment on above: Performed By: #### L UPANTCOAG #### [facility] , #### ADDONUAPLUS #### [address] Globulin (S) [Mass/Vol] 2.9 g/dL Normal [facility] Comment on above: Performed By: #### L UPANTCOAG #### [facility] , #### ADDONUAPLUS #### [address] Glucose [Mass/Vol] 142 mg/dL High 70-100 [facility] Comment on above: Result Comment: Gibson Glucose Reference Range is dependent on time and content of last meal. Glucose of more than 200 mg/dL in a nonstressed, ambulatory subject supports the diagnosis of Diabetes Mellitus. ADA recommended reference range Performed By: #### L UPANTCOAG #### [facility] , #### ADDONUAPLUS #### [address] Potassium [Moles/Vol] 4.1 mmol/L Normal 3.5-5.1 [facility] Comment on above: Performed By: #### L UPANTCOAG #### [facility] , #### ADDONUAPLUS #### [place] [address] [place] Protein [Mass/Vol] 7.0 g/dL Normal 6.1-7.9 [facility] Comment on above: Performed By: #### L UPANTCOAG #### [facility] , #### ADDONUAPLUS #### [address] Sodium [Moles/Vol] 137 mmol/L Normal 136-146 [facility] Comment on above: Performed By: #### L UPANTCOAG #### [facility] , #### ADDONUAPLUS #### [address] Urea nitrogen [Mass/Vol] 20 mg/dL Normal 9-23 [facility] Comment on above: Performed By: #### L UPANTCOAG #### [facility] , #### ADDONUAPLUS #### [address] Creatine Kinaseon 12-18-2021 CK [Catalytic activity/Vol] 46 U/L Normal 22-269 [facility] Comment on above: Result Comment: PERF ORMED BY: [place] [address] PATHOLOGIST PAPER INSPECTOR GIFTY CANO M.D. Performed By: #### L UPANTCOAG #### [facility] , #### ADDONUAPLUS #### [address] Dipstick and Microscopicon 0 12-18-2021 Appearance (U) Clear Normal Clear [facility] Comment on above: Order Comment: Name Collection Type:: Clean-Voided Midstream Performed By: #### L UPANTCOAG #### [facility] , #### ADDONUAPLUS #### [address] Bacteria,Urine None Seen Normal None Seen [facility] Comment on above: Order Comment: Name Collection Type:: Clean-Voided Midstream Performed By: #### L UPANTCOAG #### [facility] , #### ADDONUAPLUS #### [facility] [address] [place] [address] [place] Bilirubin,Urine Negative Normal Negative [facility] Comment on above: Order Comment: Name Collection Type:: Clean-Voided Midstream Performed By: #### L UPANTCOAG #### [facility] , #### ADDONUAPLUS #### [address] Color (U) Yellow Normal Yellow [facility] Comment on above: Order Comment: Name Collection Type:: Clean-Voided Midstream Performed By: #### L UPANTCOAG #### [facility] , #### ADDONUAPLUS #### [address] Glucose Ql (U) Normal Normal Normal [facility] Comment on above: Order Comment: Name Collection Type:: Clean-Voided Midstream Performed By: #### L UPANTCOAG #### [facility] , #### ADDONUAPLUS #### [address] Hyaline Casts,Urine 10-19 High 0-1 [facility] Comment on above: Order Comment: Name Collection Type:: Clean-Voided Midstream Performed By: #### L UPANTCOAG #### [facility] , #### ADDONUAPLUS #### [facility] [address] [place] [address] [place] Ketones Ql (U) Trace High Negative [facility] Comment on above: Order Comment: Name Collection Type:: Clean-Voided Midstream Performed By: #### L UPANTCOAG #### [facility] , #### ADDONUAPLUS #### [facility] [address] [place] [address] [place] Leukocyte esterase Test strip Ql (U) 2+ High Negative [facility] Comment on above: Order Comment: Name Collection Type:: Clean-Voided Midstream Performed By: #### L UPANTCOAG #### [facility] , #### ADDONUAPLUS #### [place] [address] [place] Nitrite,Urine Negative Normal Negative [facility] Comment on above: Order Comment: Name Collection Type:: Clean-Voided Midstream Performed By: #### L UPANTCOAG #### [facility] , #### ADDONUAPLUS #### [address] Occult Blood,Urine Negative Normal Negative [facility] Comment on above: Order Comment: Name Collection Type:: Clean-Voided Midstream Performed By: #### L UPANTCOAG #### [facility] , #### ADDONUAPLUS #### [address] Other Casts,Urine None Seen Normal None Seen [facility] Comment on above: Order Comment: Name Collection Type:: Clean-Voided Midstream Result Comment: PERF ORMED BY: [place] [address] PATHOLOGIST PAPER INSPECTOR GIFTY CANO M.D. Performed By: #### L UPANTCOAG #### [facility] , #### ADDONUAPLUS #### [address] pH (U) 5.5 [pH] Normal 5.0-9.0 [facility] Comment on above: Order Comment: Name Collection Type:: Clean-Voided Midstream Performed By: #### L UPANTCOAG #### [facility] , #### ADDONUAPLUS #### [place] [address] [place] Protein (U) [Mass/Vol] 30 mg/dL High Negative [facility] Comment on above: Order Comment: Name Collection Type:: Clean-Voided Midstream Performed By: #### L UPANTCOAG #### [facility] , #### ADDONUAPLUS #### [facility] [address] [place] [address] RBC,Urine 3-4 Normal 0-4 [facility] Comment on above: Order Comment: Name Collection Type:: Clean-Voided Midstream Performed By: #### L UPANTCOAG #### [facility] , #### ADDONUAPLUS #### [address] Renal Epithelial Cells,Urine None Seen Normal 0-1 [facility] Comment on above: Order Comment: Name Collection Type:: Clean-Voided Midstream Performed By: #### L UPANTCOAG #### [facility] , #### ADDONUAPLUS #### [address] Specificy [place],Urine 1.024 Normal 1.001-1.030 [facility] Comment on above: Order Comment: Name Collection Type:: Clean-Voided Midstream Performed By: #### L UPANTCOAG #### [facility] , #### ADDONUAPLUS #### [address] Squamous Epithelial Cell,Urine 5-9 High 0-2 [facility] Comment on above: Order Comment: Name Collection Type:: Clean-Voided Midstream Performed By: #### L UPANTCOAG #### [facility] , #### ADDONUAPLUS #### [facility] [address] [place] [address] Urobilinogen,Urine Normal Normal Normal [facility] Comment on above: Order Comment: Name Collection Type:: Clean-Voided Midstream Performed By: #### L UPANTCOAG #### [facility] , #### ADDONUAPLUS #### [address] WBC,Urine 3-4 Normal 0-4 [facility] Comment on above: Order Comment: Name Collection Type:: Clean-Voided Midstream Performed By: #### L UPANTCOAG #### [facility] , #### ADDONUAPLUS #### [address] Erythrocyte Sedimentation Ra ramírez 12-18-2021 ESR (Bld) [Velocity] 25 mm/h Normal 0-29 [facility] Comment on above: Result Comment: PERF ORMED BY: [place] [address] PATHOLOGIST PAPER INSPECTOR GIFTY CANO M.D. Performed By: #### C H50, C4, C3 #### [facility] , #### ESR, CBC #### [address] Free T4 (Free Thyroxine)on 0 12-18-2021 Free T4 [Mass/Vol] 0.76 ng/dL Normal 0.61-1.12 [facility] Comment on above: Performed By: #### L UPANTCOAG #### [facility] , #### ADDONUAPLUS #### [address] Immunofixation, (LYN), Urine on 12-18-2021 Immunofixation, (LYN), Urine Normal . [facility] Comment on above: Result Comment: No m onoclonality detected. Performed at: [facility] [address] [id number] [employer] Laboratory Director: Cody Williamson PhD, Phone: [phone] Performed By: #### L UPANTCOAG #### [facility] , #### ADDONUAPLUS #### [address] Immunofixation,Serumon 12-18 Immunofixation, Serum Normal . [facility] Comment on above: Result Comment: No m onoclonality detected. Performed By: #### L UPANTCOAG #### [facility] , #### ADDONUAPLUS #### [place] [address] [place] Immunoglobulin A, Serum 178 mg/dL Normal 87-352 [facility] Comment on above: Performed By: #### L UPANTCOAG #### [facility] , #### ADDONUAPLUS #### [address] Immunoglobulin G 868 mg/dL Normal 586-1602 [facility] Comment on above: Performed By: #### L UPANTCOAG #### [facility] , #### ADDONUAPLUS #### [address] Immunoglobulin M, Serum 199 mg/dL Normal 26-217 [facility] Comment on above: Result Comment: Perf ormed at: - [facility] [address] [id number] [employer] Laboratory Director: Cody Williamson PhD, Phone: [phone] Performed By: #### L UPANTCOAG #### [facility] , #### ADDONUAPLUS #### [address] Lupus Anticoagulant Compon 0 12-18-2021 Dilute Prothrombin Time (dPt) 36.4 Normal 0.0-47.6 [facility] Comment on above: Performed By: #### L UPANTCOAG #### [facility] , #### ADDONUAPLUS #### [address] dPT Confirm Ratio 1.07 Normal 0.00-1.34 [facility] Comment on above: Performed By: #### L UPANTCOAG #### [facility] , #### ADDONUAPLUS #### [facility] [address] [place] [address] DRVVT Lupus 31.4 Normal 0.0-47.0 [facility] Comment on above: Performed By: #### L UPANTCOAG #### [facility] , #### ADDONUAPLUS #### [facility] [address] [place] [address] Interpretation Comment: Normal . [facility] Comment on above: Result Comment: No l upus anticoagulant was detected. Performed at: [facility] - [facility] [id number] [employer] Laboratory Director: Aroldo Son MD, Phone: [phone] PERFORMED BY: [place] [address] PATHOLOGIST PAPER INSPECTOR GIFTY CANO M.D. Performed By: #### L UPANTCOAG #### [facility] , #### ADDONUAPLUS #### [facility] [address] [place] [address] PTT-LA 28.6 Normal 0.0-51.9 [facility] Comment on above: Performed By: #### L UPANTCOAG #### [facility] , #### ADDONUAPLUS #### [facility] [address] [place] [address] Thrombin Time 18.4 Normal 0.0-23.0 [facility] Comment on above: Performed By: #### L UPANTCOAG #### [facility] , #### ADDONUAPLUS #### [facility] [address] [place] [address] Myoglobinon 12-18-2021 Myoglobin [Mass/Vol] 31 ng/mL Normal 25-58 [facility] Comment on above: Result Comment: Perf ormed at: [facility] - [facility] [address] [id number] [employer] Laboratory Director: Cody Williamson PhD, Phone: [phone] Performed By: #### L UPANTCOAG #### [facility] , #### ADDONUAPLUS #### [place] [address] [place] Partial Thromboplastin Timeo n 12-18-2021 aPTT Coag (Bld) [Time] 26.5 s Normal 25.1-36.5 [facility] Comment on above: Order Comment: Name Collection Type:: Clean-Voided Midstream Result Comment: PERF ORMED BY: [place] [address] PATHOLOGIST PAPER INSPECTOR GIFTY CANO M.D. Performed By: #### L UPANTCOAG #### [facility] , #### ADDONUAPLUS #### [place] [address] [place] Protein Electro, Random Urin lexii 12-18-2021 Albumin, Urine 52.5 % Normal . [facility] Comment on above: Performed By: #### L UPANTCOAG #### [facility] , #### ADDONUAPLUS #### [facility] [address] [place] [address] [place] Oqfzj-0-Qhtajxzw, Urine 1.8 % Normal . [facility] Comment on above: Performed By: #### L UPANTCOAG #### [facility] , #### ADDONUAPLUS #### [facility] [address] [place] [address] [place] Enzix-5-Fqfqbjef, Urine 9.1 % Normal . [facility] Comment on above: Performed By: #### L UPANTCOAG #### [facility] , #### ADDONUAPLUS #### [place] [address] [place] Beta Globulin, Urine 22.7 % Normal . [facility] Comment on above: Performed By: #### L UPANTCOAG #### [facility] , #### ADDONUAPLUS #### [address] Gamma Globulin, Urine 13.8 % Normal . [facility] Comment on above: Performed By: #### L UPANTCOAG #### [facility] , #### ADDONUAPLUS #### [address] M-Anatoly % Not Observed Normal Not Observed [facility] Comment on above: Performed By: #### L UPANTCOAG #### [facility] , #### ADDONUAPLUS #### [address] Please Note: Normal . [facility] Comment on above: Result Comment: Prot ein electrophoresis scan will follow via computer, mail, or curing bin operator delivery. Performed at: - [facility] [address] [id number] [employer] Laboratory Director: Cody Williamson PhD, Phone: [phone] PERFORMED BY: [place] [address] PATHOLOGIST PAPER INSPECTOR GIFTY CANO M.D. Performed By: #### L UPANTCOAG #### [facility] , #### ADDONUAPLUS #### [address] Protein (U) [Mass/Vol] 73.1 mg/dL Normal Not Estab. [facility] Comment on above: Performed By: #### L UPANTCOAG #### [facility] , #### ADDONUAPLUS #### [address] Protein Electrophoresis, Ser umon 12-18-2021 Albumin [Mass/Vol] 3.8 g/dL Normal 2.9-4.4 [facility] Comment on above: Performed By: #### L UPANTCOAG #### [facility] , #### ADDONUAPLUS #### [facility] [address] [place] [address] Albumin/Globulin [Mass ratio] 1.1 {ratio} Normal 0.7-1.7 [facility] Comment on above: Performed By: #### L UPANTCOAG #### [facility] , #### ADDONUAPLUS #### [facility] [address] [place] [address] Yxsvb-5-Kyutvmuv 0.3 g/dL Normal 0.0-0.4 [facility] Comment on above: Performed By: #### L UPANTCOAG #### [facility] , #### ADDONUAPLUS #### [facility] [address] [place] [address] Tmyca-2-Ciqfujqn 1.0 g/dL Normal 0.4-1.0 [facility] Comment on above: Performed By: #### L UPANTCOAG #### [facility] , #### ADDONUAPLUS #### [facility] [address] [place] [address] [place] Beta Globulin 1.1 g/dL Normal 0.7-1.3 [facility] Comment on above: Performed By: #### L UPANTCOAG #### [facility] , #### ADDONUAPLUS #### [facility] [address] [place] [address] [place] Gamma Globulin 1.0 g/dL Normal 0.4-1.8 [facility] Comment on above: Performed By: #### L UPANTCOAG #### [facility] , #### ADDONUAPLUS #### [facility] [address] [place] [address] [place] Globulin (S) [Mass/Vol] 3.4 g/dL Normal 2.2-3.9 [facility] Comment on above: Performed By: #### L UPANTCOAG #### [facility] , #### ADDONUAPLUS #### [address] M-Anatoly Not Observed Normal Not Observed [facility] Comment on above: Performed By: #### L UPANTCOAG #### [facility] , #### ADDONUAPLUS #### [address] Protein [Mass/Vol] 7.2 g/dL Normal 6.0-8.5 [facility] Comment on above: Performed By: #### L UPANTCOAG #### [facility] , #### ADDONUAPLUS #### [address] SPE-Note Normal . [facility] Comment on above: Result Comment: Prot ein electrophoresis scan will follow via computer, mail, or curing bin operator delivery. Performed By: #### L UPANTCOAG #### [facility] , #### ADDONUAPLUS #### [address] Prothrombin Time INRon 12-18 INR Coag (PPP) [Relative time] 0.9 {INR} Normal [facility] Comment on above: Order Comment: Name Collection Type:: Clean-Voided Midstream Result Comment: INR Therapeutic Range A) Pre- and Peroperative OAT started two weeks before surgery. NOT HIP SURGERY: 1.5 - 2.5 HIP SURGERY: 2 - 3 B) Primary and secondary prevention of venous THROMBOSIS: 2 - 3 C) Active venous thrombosis, pulmonary embolism and prevention of recurrent venous thrombosis: 2 - 3 D) Prevention of arterial thromboembolism including patients with mechanical heart valves: 3 - 4.5 Performed By: #### L UPANTCOAG #### [facility] , #### ADDONUAPLUS #### [address] PT Coag (PPP) [Time] 10.4 s Normal 9.0-12.9 [facility] Comment on above: Order Comment: Name Collection Type:: Clean-Voided Midstream Performed By: #### L UPANTCOAG #### [facility] , #### ADDONUAPLUS #### [place] [address] [place] RPR w/rfx to Quant TP Abson 12-18-2021 RPR, Rfx Quant RPR Non-Reactive Normal Non Reactive [facility] Comment on above: Result Comment: Perf ormed at: [place] [id number] [employer] Laboratory Director: Cody Williamson PhD, Phone: [phone] PERFORMED BY: [place] [address] PATHOLOGIST PAPER INSPECTOR GIFTY CANO M.D. Performed By: #### L UPANTCOAG #### [facility] , #### ADDONUAPLUS #### [place] [address] [place] Thyroid Peroxidase Antibodie son 12-18-2021 Thyroid Peroxidase Antibodies <8 Normal 0-34 [facility] Comment on above: Result Comment: Perf ormed at: [facility] [address] [employer] Laboratory Director: Cody Williamson PhD, Phone: [phone] Performed By: #### L UPANTCOAG #### [facility] , #### ADDONUAPLUS #### [place] [address] [place] Thyroid Stimulating Hormoneo n 12-18-2021 TSH Qn 1.93 m[IU]/L Normal 0.45-5.33 [facility] Comment on above: Result Comment: PERF ORMED BY: [place] [address] PATHOLOGIST PAPER INSPECTOR GIFTY CANO M.D. Performed By: #### L UPANTCOAG #### [facility] , #### ADDONUAPLUS #### [address] CBC Without Differentialon 0 07-15-2021 Erythrocyte distribution width (RBC) [Ratio] 14.2 % Normal 11.9-15.3 [facility] Comment on above: Performed By: #### C H50, C4, C3 #### [facility] , #### ESR, CBC #### [address] Hematocrit (Bld) [Volume fraction] 44.1 % Normal 34.0-46.4 [facility] Comment on above: Performed By: #### C H50, C4, C3 #### [facility] , #### ESR, CBC #### [address] Hemoglobin (Bld) [Mass/Vol] 14.7 g/dL Normal 11.8-15.4 [facility] Comment on above: Performed By: #### C H50, C4, C3 #### [facility] , #### ESR, CBC #### [address] MCH (RBC) [Entitic mass] 30.1 pg Normal 24.7-34.3 [facility] Comment on above: Performed By: #### C H50, C4, C3 #### [facility] , #### ESR, CBC #### [address] MCV (RBC) [Entitic vol] 90.4 fL Normal 80-100 [facility] Comment on above: Performed By: #### C H50, C4, C3 #### [facility] , #### ESR, CBC #### [address] Mean Corpuscular HGB Conc 33.3 g/dL Normal 32.0-35.0 [facility] Comment on above: Performed By: #### C H50, C4, C3 #### [facility] , #### ESR, CBC #### [address] Platelet mean volume (Bld) [Entitic vol] 9.0 fL Normal 6.3-10.7 [facility] Comment on above: Result Comment: PERF ORMED BY: [place] [address] PATHOLOGIST PAPER INSPECTOR GIFTY CANO M.D. Performed By: #### C H50, C4, C3 #### [facility] , #### ESR, CBC #### [address] Platelets (Bld) [#/Vol] 234 10*3/uL Normal 150-450 [facility] Comment on above: Performed By: #### C H50, C4, C3 #### [facility] , #### ESR, CBC #### [address] RBC (Bld) [#/Vol] 4.88 10*6/uL Normal 3.60-5.00 [facility] Comment on above: Performed By: #### C H50, C4, C3 #### [facility] , #### ESR, CBC #### [address] WBC (Bld) [#/Vol] 7.2 10*3/uL Normal 3.8-11.6 [facility] Comment on above: Performed By: #### C H50, C4, C3 #### [facility] , #### ESR, CBC #### [address] CMP Outreachon 07-15-2021 Albumin [Mass/Vol] 4.2 g/dL Normal 3.2-5.5 [facility] Comment on above: Performed By: #### C H50, C4, C3 #### [facility] , #### ESR, CBC #### [address] ALP [Catalytic activity/Vol] 62 U/L Normal 32-92 [facility] Comment on above: Performed By: #### C H50, C4, C3 #### [facility] , #### ESR, CBC #### [address] ALT [Catalytic activity/Vol] 24 U/L Normal 10-60 [facility] Comment on above: Performed By: #### C H50, C4, C3 #### [facility] , #### ESR, CBC #### [address] AST [Catalytic activity/Vol] 22 U/L Normal 10-42 [facility] Comment on above: Performed By: #### C H50, C4, C3 #### [facility] , #### ESR, CBC #### [address] Bilirubin [Mass/Vol] 1.4 mg/dL High 0.3-1.2 [facility] Comment on above: Result Comment: [facility] les from patients who have taken Naproxen have shown spurious elevation in Total Bilirubin levels. A metabolite of Naproxen, O-desmethylnaproxen, has been shown to interfere with the Jendrorlinik-Grorui method for measuring Total Bilirubin. Performed By: #### C H50, C4, C3 #### [facility] , #### ESR, CBC #### [address] Calcium [Mass/Vol] 9.5 mg/dL Normal 8.2-10.2 [facility] Comment on above: Performed By: #### C H50, C4, C3 #### [facility] , #### ESR, CBC #### [address] Chloride [Moles/Vol] 105 mmol/L Normal 95-114 [facility] Comment on above: Performed By: #### C H50, C4, C3 #### [facility] , #### ESR, CBC #### [address] CO2 [Moles/Vol] 24.4 mmol/L Normal 22.0-30.0 [facility] Comment on above: Performed By: #### C H50, C4, C3 #### [facility] , #### ESR, CBC #### [address] Creatinine [Mass/Vol] 0.97 mg/dL Normal 0.44-1.03 [facility] Comment on above: Performed By: #### C H50, C4, C3 #### [facility] , #### ESR, CBC #### [address] Estimated GFR ( Lexis > 60 [facility] Comment on above: Result Comment: GFR estimated reference range: According to KDOQI guidelines, <60 ml/min/1.73m2 is sufficient to diagnose a patient with chronic kidney disease. Performed By: #### C H50, C4, C3 #### [facility] , #### ESR, CBC #### [address] Estimated GFR (Non- Am 58 [facility] Comment on above: Performed By: #### C H50, C4, C3 #### [facility] , #### ESR, CBC #### [address] Glucose [Mass/Vol] 109 mg/dL High 70-100 [facility] Comment on above: Result Comment: [place] Glucose Reference Range is dependent on time and content of last meal. Glucose of more than 200 mg/dL in a nonstressed, ambulatory subject supports the diagnosis of Diabetes Mellitus. ADA recommended reference range Performed By: #### C H50, C4, C3 #### [facility] , #### ESR, CBC #### [facility] [address] Potassium [Moles/Vol] 4.0 mmol/L Normal 3.5-5.1 [facility] Comment on above: Performed By: #### C H50, C4, C3 #### [facility] , #### ESR, CBC #### [address] Protein [Mass/Vol] 7.4 g/dL Normal 6.1-7.9 [facility] Comment on above: Performed By: #### C H50, C4, C3 #### [facility] , #### ESR, CBC #### [address] Sodium [Moles/Vol] 139 mmol/L Normal 136-146 [facility] Comment on above: Performed By: #### C H50, C4, C3 #### [facility] , #### ESR, CBC #### [place] [address] [place] Urea nitrogen [Mass/Vol] 21 mg/dL Normal 9-23 [facility] Comment on above: Performed By: #### C H50, C4, C3 #### [facility] , #### ESR, CBC #### [address] Lipid Profile Outreachon Cholesterol [Mass/Vol] 199 mg/dL Normal 140-200 [facility] Comment on above: Result Comment: Chol less than 200 mg/dl low risk Chol 201-239 mg/dl borderline risk Chol 240 mg/dl and greater high risk Performed By: #### C H50, C4, C3 #### [facility] , #### ESR, CBC #### [facility] [address] Cholesterol in HDL [Mass/Vol] 67 mg/dL Normal 35-85 [facility] Comment on above: Result Comment: HDL CHOL ATP-III CLASSIFICATION Cardiovascular Risk HDL > or equal to 60 mg/dL LOW HDL < 40 mg/dL HIGH Performed By: #### C H50, C4, C3 #### [facility] , #### ESR, CBC #### [address] Cholesterol.total/Mary sterol in HDL [Mass ratio] 3.0 {ratio} Normal <5.0 [facility] Comment on above: Performed By: #### C H50, C4, C3 #### [facility] , #### ESR, CBC #### [address] LDL Cholesterol,Calculated 111 mg/dL High 0-100 [facility] Comment on above: Result Comment: LDL ATP III CLASSIFICATION LDL less than 100 mg/dL Optimal LDL 100-129 mg/dL Near or above optimal LDL 130-159 mg/dL Borderline high LDL 160-189 mg/dL High LDL greater than 189 mg/dL Very high Performed By: #### C H50, C4, C3 #### [facility] , #### ESR, CBC #### [place] [address] [place] Triglyceride w/Reflex 105 mg/dL Normal 35-149 [facility] Comment on above: Result Comment: TRIG ATP III CLASSIFICATION TRIG less than 150 mg/dL Normal TRIG 150-199 mg/dL Borderline high TRIG 200-500 mg/dL High TRIG greater than 500 mg/dL Very high Standard traceable to the Center for Disease Conrtrol and Prevention (CDC) test method. Performed By: #### C H50, C4, C3 #### [facility] , #### ESR, CBC #### [address] VLDL CHOLESTEROL 21 mg/dL Normal [facility] Comment on above: Performed By: #### C H50, C4, C3 #### [facility] , #### ESR, CBC #### [address] Vitamin D 25 Hydroxy Totalon 07-15-2021 Vitamin D 25 Hydroxy Total 33.4 ng/mL Normal 30-100 [facility] Comment on above: Result Comment: GARY MIN D STATUS 25(OH)VITAMIN D RANGE (ng/mL) Deficient <20 Insufficient 20 to <30 Sufficient 30 to 100 Reference: Vero MF,Nara TRAMMELL, Darius RHODES, et al. Evaluation,treatment, and prevention of vitamin D deficiency; an Endocrine Society clinical practice guideline. JCEM. 2010; 96(7):1911-30. PERFORMED BY: [place] [address] PATHOLOGIST PAPER INSPECTOR GIFTY CANO M.D. Performed By: #### C H50, C4, C3 #### [facility] , #### ESR, CBC #### [address] CNPNon 03-02-2021 CNPN Telephone (HEMASA) UZMA ALFRED ([id number]) 1955 F Date Time Provider Department 03/02/21 ARJUN HART During your visit today, we recorded the following information about you: Arjun Hart, RN 03/02/2021 1:23 PM Signed Received call from pt stating she got her Dexa scan results from her PCP and she has osteoporosis so Dr Flowers wants her to start on Fosamax but she wanted to see if that is what Dr Corbin believes is best. BRM: Please advise. ADELSO Glez MD 03/02/2021 1:55 PM Signed I am definitely okay with her taking Fosamax. If she does not tolerate the Fosamax she should let us know, and we can give her either Prolia or Reclast. Thanks, BRM Arjun Hart RN 03/02/2021 2:08 PM Signed Informed pt of Dr Corbin's response. Pt verbalized understanding and states she will consider her options and let us know if she decides on Prolia or Reclast instead. Arjun Hart RN Allergies As of Date: 03/02/2021 Noted Allergy Reaction FENTANYL 02/15/2021 16 - Unknown PENICILLINS 02/16/2021 2 - Rash PERCOCET (OXYCODONE-ACETAMINOP HEN)10/09/2005 8 - GI Upset SULFA DYNE 09/17/2012 2 - Rash TERBINAFINE 04/30/2018 2 - Rash Date Reviewed: 02/21/2021 Reviewed by: Lilia Castro - Fully Assessed Reason for Visit: Medication Question [1478] Prescriptions as of 03/02/2021 Sig: ROSUVASTATIN 40 MG TABLET AMLODIPINE 5 MG TABLET Take 5 mg by mouth. HYDRALAZINE 50 MG TABLET Take 50 mg by mouth. * METOPROLOL TARTRATE 50 MG TAB* * ZOLPIDEM 10 MG TABLET Take 10 mg by mouth once hossein* * MULTIVITAMIN TABLET Take one(1) tablet daily. Problem List As Of Date 03/02/2021 Noted Resolved PERS HX OF BREAST MALIGNANCY [Z85.3] 08/13/2005 OPEN WOUND ANT ABDOMEN-COMP [S31.109A] 10/01/2005 Malignant neoplasm of upper-outer quadrant of f* Hip joint replacement by other means [Z96.649] Encounter Status:Closed by ARJUN HART on 03/02/21 Normal [facility] Estela 02-21-2021 CNPN Telephone (NCCAP) UZMA ALFRED ([id number]) 1955 F Date Time Provider Department 02/21/21 ERROL CORBIN During your visit today, we recorded the following information about you: Caterina Weston Pss 02/21/2021 9:58 AM Signed Pt is scheduled at [facility] for bone density and yayo screen mammogram. Dr Corbin, can you please review and place orders in [facility] to be faxed? Thanks! Katia Rojas RN 02/21/2021 11:17 AM Signed Orders pended. Please review and approve. Thanks, ADELSO Moore 02/21/2021 12:33 PM Signed Signed. Lilia Castro APRN.SOREN Ava Oatesdiego [facility] 02/21/2021 12:54 PM Signed Faxed to [facility] Allergies As of Date: 02/21/2021 Noted Allergy Reaction FENTANYL 02/15/2021 16 - Unknown PENICILLINS 02/16/2021 2 - Rash PERCOCET (OXYCODONE-ACETAMINOP HEN)10/09/2005 8 - GI Upset SULFA DYNE 09/17/2012 2 - Rash TERBINAFINE 04/30/2018 2 - Rash Date Reviewed: 02/21/2021 Reviewed by: Lilia Castro - Fully Assessed Reason for Visit: Future Appointment [256] Primary Visit Diagnosis:Malignant neoplasm of upper-outer quadrant of left breast in female, estrogen receptor positive (HCC) [C50.412, Z17.0] Other Visit Diagnosis:Age-related osteoporosis without current pathological fracture [M81.0] Order(s):DXA-AXIAL SKELETON [[id number]] Order #: [id number] FUTURE JOHANN SCREENING [[id number]] Order #: [id number] FUTURE Prescriptions as of 02/21/2021 Sig: ROSUVASTATIN 40 MG TABLET AMLODIPINE 5 MG TABLET Take 5 mg by mouth. HYDRALAZINE 50 MG TABLET Take 50 mg by mouth. * METOPROLOL TARTRATE 50 MG TAB* * ZOLPIDEM 10 MG TABLET Take 10 mg by mouth once hossein* * MULTIVITAMIN TABLET Take one(1) tablet daily. 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 means [Z96.649] Encounter Status:Closed by CATERINA MADERA on 04/14/21 Normal [facility] Vital Signs Date Time Vital Sign Value Performing Clinician Facility 06-18-2023 10:30-0400 Body height 167.64 cm Florinda Flowers Other [facility] Other 06-18-2023 10:30-0400 Body mass index (BMI) [Ratio] 28.73 kg/m2 Florinda Flowers Other [facility] Other 06-18-2023 10:30-0400 Body weight 80.74 kg Florinda Flowers Other [facility] Other 06-18-2023 10:30-0400 Diastolic blood pressure 75 mm[Hg] Florinda Flowers Other [facility] Other 06-18-2023 10:30-0400 Systolic blood pressure 131 mm[Hg] Florinda Flowers Other [facility] Other 12-24-2022 10:00-0500 Body height 167.64 cm Florinda Flowers Other [facility] Other 12-24-2022 10:00-0500 Body mass index (BMI) [Ratio] 30.02 kg/m2 Florinda Flowers Other [facility] Other 12-24-2022 10:00-0500 Body weight 84.37 kg Florinda Flowers Other [facility] Other 12-24-2022 10:00-0500 Diastolic blood pressure 84 mm[Hg] Florinda Flowers Other [facility] Other 12-24-2022 10:00-0500 Systolic blood pressure 130 mm[Hg] Florinda Flowers Other [facility] Other 09-30-2022 12:00-0500 Body height 167.64 cm Elizabeth Wyatt Other [facility] Other 09-30-2022 12:00-0500 Body mass index (BMI) [Ratio] 29.53 kg/m2 Elizabeth Francomond Other [facility] Other 09-30-2022 12:00-0500 Body temperature 98.3 [degF] Elizabeth Wyatt Other [facility] Other 09-30-2022 12:00-0500 Body weight 83.01 kg Elizabeth Wyatt Other [facility] Other 09-30-2022 12:00-0500 Respiratory rate 18 /min Elizabeth Wyatt Other [facility] Other 09-30-2022 12:00-0500 SaO2% (BldA) [Mass fraction] 99 % Elizabeth Wyatt Other [facility] Other 08-14-2022 15:20-0400 Body height 167.64 cm Cesarflori [employer] Other [facility] Other 08-14-2022 15:20-0400 Body mass index (BMI) [Ratio] 30.5 kg/m2 [employer] Other [facility] Other 08-14-2022 15:20-0400 Body temperature 96.2 [degF] Teetee Rizvi Other [facility] Other 08-14-2022 15:20-0400 Body weight 85.73 kg Teetee Palominos Other [facility] Other 08-14-2022 15:20-0400 Diastolic blood pressure 85 mm[Hg] Teetee Palominos Other [facility] Other 08-14-2022 15:20-0400 Respiratory rate 18 /min Teetee Palominos Other [facility] Other 08-14-2022 15:20-0400 SaO2% (BldA) [Mass fraction] 96 % Teetee Rizvi Other [facility] Other 08-14-2022 15:20-0400 Systolic blood pressure 147 mm[Hg] Teetee Palominos Other [facility] Other 07-20-2022 13:49-0400 Body height 167.64 cm Florinda Flowers Work Phone: [facility] [employer] [address] DO Work Phone: 07-20-2022 13:49-0400 Diastolic blood pressure 78 mm[Hg] Florinda Flowers Work Phone: [facility] [employer] [address] DO Work Phone: 07-20-2022 13:49-0400 Heart rate 66 /min Florinda Flowers Work Phone: [facility] [employer] [address] DO Work Phone: 07-20-2022 13:49-0400 Systolic blood pressure 120 mm[Hg] Florinda Flowers Work Phone: [facility] [address] DO Work Phone: 07-04-2022 12:06-0400 Diastolic blood pressure 85 mm[Hg] MD Florinda Flowers Work Phone: [facility] 07-04-2022 12:06-0400 Heart rate 62 /min MD Florinda Flowers Work Phone: [facility] 07-04-2022 12:06-0400 Respiratory rate 16 /min MD Florinda Flowers Work Phone: [facility] 07-04-2022 12:06-0400 SaO2% (BldA) [Mass fraction] 95 % MD Florinda Flowers Work Phone: [facility] 07-04-2022 12:06-0400 Systolic blood pressure 146 mm[Hg] MD Florinda Flowers Work Phone: [facility] 07-04-2022 09:23-0400 Body height 167.64 cm MD Florinda Flowers Work Phone: [facility] 07-04-2022 09:23-0400 Body weight 85.72 kg MD Florinda Flowers Work Phone: [facility] 06-12-2022 17:20-0400 Body height 167.64 cm Teetee Platforasherron Other [facility] Other 06-12-2022 17:20-0400 Body mass index (BMI) [Ratio] 30.5 kg/m2 [employer] Other [facility] Other 06-12-2022 17:20-0400 Body temperature 97 [degF] [employer] Other [facility] Other 06-12-2022 17:20-0400 Body weight 85.73 kg [employer]vi Other [facility] Other 06-12-2022 17:20-0400 Diastolic blood pressure 88 mm[Hg] Teetee Rizvi Other [facility] Other 06-12-2022 17:20-0400 Respiratory rate 18 /min Teetee Rizvi Other [facility] Other 06-12-2022 17:20-0400 SaO2% (BldA) [Mass fraction] 97 % Teetee Rizvi Other [facility] Other 06-12-2022 17:20-0400 Systolic blood pressure 155 mm[Hg] Teetee Rizvi Other [facility] Other Encounters Encounter Date Encounter Type Care Provider Facility Start: 10-29-2023 End: 10-29-2023 ambulatory Florinda Lionel Other [facility] Other Start: 10-29-2023 Telephone encounter Florinda Lionel [facility] Start: 08-19-2023 End: 08-19-2023 ambulatory Florinda Lionel Other [facility] Other Start: 08-19-2023 Telephone encounter Florinda Lionel [facility] Start: 08-05-2023 End: 08-05-2023 ambulatory Florinda Lionel Other [facility] Other Start: 08-05-2023 Telephone encounter Florinda Lionel [facility] Start: 06-18-2023 End: 06-18-2023 ambulatory Florinda Lionel Other [facility] Other Start: 06-18-2023 Encounter for other preprocedural examination Florinda Flowers [facility] Start: 06-18-2023 Office outpatient vi sit 25 minutes Florinda Flowers [facility] Start: 03-12-2023 End: 03-12-2023 ambulatory Florinda Flowers Other [facility] Other Start: 03-12-2023 Telephone encounter Florinda Flowers [facility] Start: 02-20-2023 End: 02-21-[address] DOCTOR RODGERS Facility:[facility] Start: 12-24-2022 Patient encounter procedure Florinda Flowers [facility] Start: 12-24-2022 End: 12-25-[address] FLORINDA FLOWERS [facility] Other Start: 12-06-2022 End: 12-06-2022 ambulatory Florinda Flowers Other [facility] Other Start: 12-06-2022 Telephone encounter Florinda Flwoers [facility] Start: 11-26-2022 Encounter for preprocedural laboratory examination DR REHANA REINOSO . [facility] Start: 2022 End: [address] REHANA REINOSO . Facility: Start: 11-19-2022 End: 11-20-[address] REHANA REINOSO . Facility:[facility] Start: 11-19-2022 End: 11-20-2022 Encounter for preprocedural laboratory examination DR REHANA REINOSO . Facility: Start: 10-31-2022 End: 11-01-[address] DOCTOR RODGERS Facility:[facility] Start: 10-05-2022 Adult health examination Delaney wily Lionel Other [facility] Other Start: 10-05-2022 Gynecological examin ation normal Florinda Flowers Other [facility] Other Start: 10-05-2022 Pre-procedure evalua tion check Florinda Flowers Other [facility] Other Start: 10-05-2022 Preoperative cardiovascular examination Florinda Lionel Other [facility] Other Start: 10-05-2022 Problem, abnormal examination Florinda Flowers Other [facility] Other Start: 09-30-2022 End: 09-30-2022 ambulatory Elizabeth Wyatt Other [facility] Other Start: 09-30-2022 Office outpatient vi sit 15 minutes Elizabeth Yoselin [facility] Start: 08-14-2022 End: 08-14-2022 ambulatory Aziz Bakhous Other [facility] Other Start: 08-14-2022 Office outpatient vi sit 25 minutes Aziz Bakhous [facility] Start: 08-01-2022 End: 08-01-2022 ambulatory Aziz Bakhous Other [facility] Other Start: 08-01-2022 Telephone encounter Aziz Bakhous [facility] Start: 07-30-2022 End: 07-31-[address] LEI GOYAL Facility:[facility] Start: 07-20-2022 Office outpatient vi sit 25 minutes Florinda Flowers Work Phone: [facility] 250 DO Work Phone: Start: 07-20-2022 Patient encounter procedure Florinda Flowers Work Phone: [facility] 600 DO Work Phone: Start: 07-20-[address] Florinda Flowers Facility: Start: 07-04-2022 End: 07-04-2022 Admission to same day surgery center MD Florinda Flowers Work Phone: [facility]-CT Scan [facility] [place] Start: 07-02-2022 End: 07-03-[address] RYAN ORTIZ Facility:[facility] Start: 07-02-2022 End: 07-03-[address] ERROL CORBIN Facility:[facility] Start: 06-12-2022 End: 06-12-2022 ambulatory Teetee Rizvi Other [facility] Other Start: 06-12-2022 Office outpatient ne w 45 minutes Teetee Rizvi [facility] Start: 03-19-2022 End: 03-19-2022 Patient encounter procedure MD Florinda Flowers Work Phone: [facility] [address] Start: 02-06-2022 Telephone encounter Errol womack MD Work Phone: Hematology/Oncology Comment on above: Lab Orders Start: 12-20-2021 End: 12-20-2021 Patient encounter procedure MD Florinda Flowers Work Phone: [facility] [address] Start: 02-15-2021 End: 02-15-2021 Chart abstracting Errol Corbin Work Phone: Hematology/Oncology Start: 02-02-2021 End: 02-02-2021 Patient encounter procedure External Provider [facility] Start: 02-02-2021 Results Only External Provider Exter nal-NonCCF Procedures Date Procedure Procedure Detail Performing Clinician Start: 12-20-2021 Plain X-ray of bilat eral femurs MD Florinda Flowers Work Phone: Start: 12-20-2021 Plain X-ray of bilat eral tibia and bilateral fibula MD Florinda Flowers Work Phone: Start: 02-02-2021 EXTERNAL IMAGING Certified Nutritionist al Provider Start: 02-02-2021 EXTERNAL LAB External P rovider Start: 08-05-2015 Screening for malign ant neoplasm of breast Florinda Flowers Other Arthroplasty of knee Florinda Flowers Work Phone: Colonoscopy Florinda Flowers Work Phone: Excision of breast tissue Rowdy Flowers Work Phone: Comment on above: Breast surgery; Hysterectomy Florinda Flowers Work Phone: Operation on breast Florinda Flowers Work Phone: Operative procedure on knee Florinda Flowers Work Phone: Procedure on back Florinda mendez Work Phone: Screening for malign ant neoplasm of breast Florinda Flowers Other Total replacement of hip Tamar Flowers Work Phone: Plan of Treatment Date Care Activity Detail Author Start: 08-06-2023 FUV, Provider: Lei Goyal, Status: Pen, Time: 9:50 AM FUV, Provider: Lei Goyal, Status: Pen, Time: 9:50 AM -[facility] [address] DO Work Phone: Start: 07-05-2022 Influenza vaccination INFLUENZ A (Season Ended) [facility] Start: 07-04-2022 [facility] Work Phone: Start: 07-04-[address] guided biopsy [facility] Start: 02-15-2022 End: 04-17-2022 CBC W Auto Differential panel - Blood CBC + DIFF Lab Routine Malignant neoplasm of upper-outer quadrant of left breast in female, estrogen receptor positive (HCC) Expected: 02/15/2022, Expires: 04/17/2022 [facility] Work Phone: Comment on above: Expected: 02/15/2022 , Expires: 04/17/2022 Start: 02-15-2022 End: 04-17-2022 Comprehensive metabolic 2000 panel - Serum or Plasma COMP METABOLIC PANEL Lab Routine Malignant neoplasm of upper-outer quadrant of left breast in female, estrogen receptor positive (HCC) Expected: 02/15/2022, Expires: 04/17/2022 [facility] Work Phone: Comment on above: Expected: 02/15/2022 , Expires: 04/17/2022 Start: 11-04-2021 ADVANCE DIRECTIVE DISCUSSION ADVANCE DIRECTIVE DISCUSSION [facility] Start: 07-05-2021 Influenza vaccination INFLUENZ A (Season Ended) [facility] Start: 06-12-2021 COVID-19 VACCINE (3 - Booster) COVID-19 VACCINE (3 - Booster) [facility] Start: 2020 ADVANCE DIRECTIVE DISCUSSION ADVANCE DIRECTIVE DISCUSSION [facility] Start: 2020 BONE DENSITY BONE DENSITY [facility] Start: 2020 PNEUMOVAX AGE 65 AND OVER WITH 5YR LOOKBACK (#1) PNEUMOVAX AGE 65 AND OVER WITH 5YR LOOKBACK (#1) [facility] Start: 01-26-2017 DIABETES SCREEN DIABETES SCREEN [facility] Start: 2005 Screening for malign ant neoplasm of colon [facility] Start: 2005 SHINGRIX VACCINE (1 of 2) SHINGRIX VACCINE (1 of 2) [facility] Start: 2000 COLOGUARD (FIT-DNA) COLOGUARD (FIT-D NA) [facility] Start: 2000 Colonoscopy COLONOSCOPY [facility] Start: 2000 COLORECTAL CANCER SCREENING COLORECTAL CANCER SCREENING [facility] Start: [address] COLONOGRAPHY [facility] Start: 2000 FECAL OCCULT BLOOD FECAL OCCULT BLOO D [facility] Start: 2000 LIPID SCREEN LIPID SCREEN [facility] Start: 2000 SIGMOIDOSCOPY SIGMOIDOSCOPY [facility] Start: 1995 Mammography MAMMOGRAM [facility] Start: 1974 Urine microalbumin profile DTAP,TDAP,TD (1 - Tdap) [facility] Start: 1973 HEPATITIS C SCREENING HEPATITIS C SC [place] [facility] Start: 1973 HIV SCREENING HIV SCREENING [facility] Start: 1967 Adult depression screening assessment DEPRESSION SCREENING [facility] Cryoglobulin [Presen ce] in Serum [facility] Work Phone: Patient Education Kidney Biopsy [facility] Work Phone: [facility] Immunizations Immunization Date Immunization Notes Care Provider Fa cility 08-28-2021 COVID-19 [id number] (Moderna) MD Florinda Flowers Work Phone: [facility] 08-21-2021 influenza virus vaccine, split virus (incl. purified surface antigen) Florinda Flowers Other [employer] Other 08-21-2021 Seasonal trivalent influenza vaccine, adjuvanted, preservative free Florinda Flowers Work Phone: [facility] 600 DO Work Phone: 06-12-2021 pneumococcal polysaccharide vaccine, 23 valent Florinda Flowers Work Phone: [facility] 600 DO Work Phone: 01-10-2021 COVID-19 mRNA-1273 (Moderna) MD Florinda Flowers Work Phone: [facility] 01-10-2021 COVID-19 vaccine (UNSPECIFIED) Errol Corbin MD Work Phone: [facility] 12-12-2020 COVID-19 mRNA-1273 (Moderna) MD Florinda Flowers Work Phone: [facility] 12-12-2020 COVID-19 vaccine (UNSPECIFIED) Errol Corbin MD Work Phone: [facility] 08-04-2019 influenza virus vaccine, unspecified formulation Florinda Flowers Work Phone: [facility] 600 DO Work Phone: 08-04-2018 influenza virus vaccine, unspecified formulation Florinda Flowers Work Phone: [facility] 600 DO Work Phone: 08-04-2017 influenza virus vaccine, unspecified formulation Florinda Flowers Work Phone: [facility] 600 DO Work Phone: 09-10-2009 novel [id number], preservative-free, injectable Florinda Flowers Work Phone: [facility] 600 DO Work Phone: Payers Date Payer Category Payer Medicare [id number] 2020 Private Health Insurance xxx [id number] 1959 Medicare [id number] 1959 Unknown [id number] 1955 Unknown [id number] 2.16. [id number] 1955 Unknown [id number] 2.16.84 [id number] 1955 Unknown [id number] 2.16.84 [id number] 1955 Unknown [id number] 2.16.84 [id number] 1955 Unknown [id number] 2.16.84 [id number] 1955 Unknown [id number] 2.16.84 [id number] 1955 Unknown [id number] 2.16.84 [id number] 1955 Unknown [id number] 2.16.84 [id number] 1955 Unknown [id number] 2.16.84 [id number] Self-pay Self Pay [id number] Unknown O [id number] Unknown Social History Date Type Detail Facility Start: 01-27-2015 End: 02-15-2021 Tobacco smoking status NHIS Former smoker [facility] History of tobacco use Cigarette Smoker C [facility] Start: 01-27-2015 End: 02-15-2021 Cigarettes smoked current (pack per day) - Reported [facility] Start: 01-27-2015 End: 02-15-2021 Tobacco use and exposure Never used [facility] Start: 01-27-2015 End: 02-16-2021 Alcohol intake Current drinker of alcohol (finding) [facility] Start: 1955 Sex Assigned At Not on file C [facility] Start: 1955 Sex Assigned At Female F [facility] Sex Assigned At Sex Assigned At Bir th [employer] Other Start: 07-04-2022 Tobacco smoking stat us KYIS Never smoked tobacco (finding) [facility] Clinical Notes 02-06-2022 to 10-29-2023 Note Date & Type Note Facility 10-29-2023 Evaluation note Encounter Date Diagnosis Assessment Notes Oct, Primary insomnia (ICD-10 - F51.01) Oct, Essential (primary) hypertension (ICD-10 - I10) [employer] Other 10-02-2023 Evaluation note* Encounter Date Diagnosis Assessment Notes Treatment Notes Treatment Clinical Notes Aug, Primary insomnia (ICD-10 - F51.01) Aug, Primary hypertension (ICD-10 - I10) [employer] Other 08-15-2023 Evaluation note* Encounter Date Diagnosis Assessment Notes Treatment Notes Treatment Clinical Notes Jun, Essential (primary) hypertension (ICD-10 - I10) Chronic problem - stable; refilled meds. Jun, Preoperative examination (ICD-10 - Z01.818) Uzma is in good health. I do not have labs from [facility], but barring any abnormalities she is low risk for upcoming knee replacement. Jun, Chronic kidney disease, stage 3a (ICD-10 - N18.31) Established with Nephrology - continue to monitor and keep bp controlled. [employer] Other 02-20-2023 Evaluation note* Encounter Date Diagnosis Assessment Notes Treatment Notes Treatment Clinical Notes Dec, Medicare annual wellness visit, subsequent (ICD-10 - Z00.00) Personalized health advice was given to the beneficiary including a written plan for screenings discussed and provided. Advanced care planning reviewed and/or information given as requested. Additional counseling was provided here today in regards to, [ ]. The above visit was performed by [ ], under direct supervision of [ ]. Document reviewed and amended by provider signed below. Dec, Primary hypertension (ICD-10 - I10) chronic problem - due for labs. Dec, Cutaneous candidiasis (ICD-10 - B37.2) recurrent problem. r/o diabetes Dec, Primary insomnia (ICD-10 - F51.01) chronic problem. denies issues with medication. [employer] Other 02-02-2023 Evaluation note* Encounter Date Diagnosis Assessment Notes Treatment Notes Treatment Clinical Notes Dec, Primary hypertension (ICD-10 - I10) [employer] Other 11-27-2022 Evaluation note* Encounter Date Diagnosis Assessment Notes Treatment Notes Treatment Clinical Notes Sep, Contact with and (suspected) exposure to other viral communicable diseases (ICD-10 - Z20.828) Sep, Influenza A (ICD-10 - J10.1) Sep, Other Influenza: adul t home care material was printed Drink plenty fluids, get plenty of rest. Take the Zofran as prescribed as needed for nausea and vomiting. Take the prednisone as prescribed until gone for inflammation. Follow-up with your family physician if no improvement in 2 to 3 days [employer] Other 10-11-2022 Evaluation note* Encounter Date Diagnosis Assessment Notes Treatment Notes Treatment Clinical Notes Aug, Chronic kidney disease, stage 3a (ICD-10 - N18.31) Chronic kidney disease likely from NSAID use and hypertension nephropathy. Kidney biopsy only showed glomerular megaly likely from premature patient has mild proteinuria. Protein creatinine ratio 250 mg/g. UA showed 100 mg/dL protein and RBCs 5-9. Autoimmune work-up is negative Blood pressure is well controlled at home. Volume status well controlled. I asked the patient to avoid NSAIDs Follow-up in 1 year Aug, Proteinuria, unspecified (ICD-10 - R80.9) Likely from and used glomerulomegaly. Proteinuria is mild. Protein cardiology 250 mg/g Aug, Hematuria, unspecified (ICD-10 - R31.9) Mild proteinuria and hematuria. I will continue to monitor UA. Kidney biopsy did not show glomerulonephritis or AIN Aug, Primary hypertension (ICD-10 - I10) Blood pressure is very well controlled at home. I will continue same blood pressure medications. I asked the patient to continue monitoring blood pressure at home Aug, NSAID long-term use (ICD-10 - Z79.1) Patient took high-dose Motrin 800 mg twice daily years before for knees and back pain. Patient stopped NSAIDs in 2016. Now only uses arthritis pain Aug, WADE positive (ICD-10 - R76.8) Patient follows with Dr. Ryan Ortiz in rheumatology clinic. Patient was diagnosed with polymyalgia rheumatica for which she is taking low-dose prednisone. C3-C4 has been within normal limits. Repeated WADE is negative. Kidney biopsy did not show glomerulonephritis [employer] Other 08-09-2022 Evaluation note* Encounter Date Diagnosis Assessment Notes Treatment Notes Treatment Clinical Notes Jun, Chronic kidney disease, stage 3a (ICD-10 - N18.31) Chronic kidney disease likely from NSAID use and hypertension nephropathy versus autoimmune disease as the patient has hematuria and proteinuria. I will schedule patient for kidney biopsy. I will do serology work-up for vasculitis and autoimmune disease. Paraprotein work-up has been negative. Patient is following with Dr. Goyal in cardiology clinic for hypertension management I asked the patient to stay away completely from NSAIDs Jun, Hematuria, unspecified (ICD-10 - R31.9) May be from chronic patient nephritis induced by NSAIDs. Patient stopped NSAIDs years ago. Autoimmune disease and/or vasculitis needs to be ruled out. We will schedule kidney biopsy Jun, Proteinuria, unspecified (ICD-10 - R80.9) Jun, Primary hypertension (ICD-10 - I10) Blood pressure is elevated. Might be from Naprosyn patient is taking currently for her tooth pain after extraction. Patient states she is going to stop NSAIDs completely I asked the patient to monitor her blood pressure at home Jun, NSAID long-term use (ICD-10 - Z79.1) Patient took high-dose Motrin 800 mg twice daily years before for back pain. Patient stopped NSAIDs in 2017. Patient stated she is now taking Naprosyn for tooth pain but she is going to stop it today Jun, WADE positive (ICD-10 - R76.8) Patient follows with Dr. Ryan Ortiz in hematology clinic. Patient was diagnosed with I will manage her medically on a low-dose prednisone. C3-C4 has been within normal limits WADE positive 1:160 with speckled pattern I will schedule kidney biopsy to rule out lupus nephritis [employer] Other 04-14-2022 NoteHNO ID: [id number] Author: Errol Corbin MD Service: ? Author Type: Physician Type: Progress Notes Filed: 02/16/2022 11:02 AM Note Text: PATIENT NAME: Uzma Alfred DATE: 02/15/2022 PRIMARY CARE PHYSICIAN: Florinda Flowers MD OTHER PHYSICIANS: Dr. Yeung Portions of this encounter note have been copied from my note from 02/16/2021 and has been updated where appropriate, and reflect my current medical decision making from today. CC: This is a 66 year old female with a history of breast cancer, seen for scheduled follow-up. INTERIM HISTORY: Since the patient's last visit here she underwent a left knee replacement on 01/17/2022 (Dr. Sanchez). Apparently she did not have adequate anesthesia during surgery, and since surgery has had persistent pain and swelling. Since the patient's last visit she underwent a bone density exam which revealed osteoporosis. She was started on Fosamax per PCP. She remains on calcium and vitamin D supplements. She has had no other significant medical changes. Other than left knee pain and arthritic pain she feels well. No new suspicious symptoms. MEDICATIONS: rosuvastatin (CRESTOR) 40 mg tablet amLODIPine (NORVASC) 5 mg tablet Take 5 mg by mouth. hydrALAZINE (APRESOLINE) 50 mg tablet Take 50 mg by mouth. METOPROLOL TARTRATE, SHORT ACTING, 50 mg tablet ZOLPIDEM 10 mg Tab Take 10 mg by mouth once daily. MULTIVITAMIN TAB Take one(1) tablet daily. ALLERGIES: Fentanyl, Penicillins, Percocet [Oxycodone-Acetaminophen], Sulfa Dyne, and Terbinafine PAST MEDICAL HISTORY: PAST MEDICAL HISTORY Diagnosis Date - BRCA negative - H/O degenerative disc disease - Hip joint replacement by other means - HTN (hypertension) - Insomnia - Malignant neoplasm of upper-outer quadrant of female breast (HCC) - Myalgia - Neuropathy PAST SURGICAL HISTORY: PAST SURGICAL HISTORY Procedure Laterality Date - BACK SURGERY HX - BREAST RECONSTRUCTION - KNEE RIGHT OP SURGERY - MASTECTOMY HX 11/2002 - SHADI W/WO REMOVAL TUBE OVARY 04/2003 - TOTAL HIP REPLACEMENT REVIEW OF SYSTEMS: GENERAL: No weight loss, malaise or fevers. HEENT: Negative for frequent or significant headaches, No changes in hearing or vision, no nose bleeds or other nasal problems RESPIRATORY: Negative for cough, wheezing or shortness of breath. CARDIOVASCULAR: Negative for chest pain, leg swelling or palpitations. GI: Negative for abdominal discomfort, blood in stools or black stools or change in bowel habits : No history of dysuria, frequency or incontinence MUSCULOSKELETAL: Negative for: joint pain or swelling, back pain and muscle pain SKIN: Negative for lesions, rash, and itching. HEMATOLOGY/LYMPHOLOGY: Negative for prolonged bleeding, bruising easily or swollen nodes. NEURO: No history of headaches, syncope, paralysis, seizures or tremors PHYSICAL EXAM: Vitals: BP 166/85 Pulse 66 Temp 36.3 ?C (97.4 ?F) Resp 16 Ht 170.2 cm (5' 7.01 ) Wt 87.1 kg (192 lb) SpO2 97% BMI 30.06 kg/m? General appearance: well appearing, alert, in no acute distress, well-hydrated, well nourished Skin: skin color, texture, turgor normal, no suspicious rashes or lesions Head: normal Eyes: Anicteric sclera. Pupils are equally round and reactive to light. Extraocular movements are intact. Ears: negative findings: external ears normal to inspection and palpation Oropharynx: negative Neck: Supple, no adenopathy; thyroid symmetric, normal size Lymph Nodes: No Submandibular, cervical, supraclavicular, axillary, or inguinal lymphadenopathy present Breast: Left breast TRAM flap reconstruction is well-healed with no suspicious masses. Right breast reveals evidence of a previous reduction mammoplasty, but no masses or suspicious findings. Back: no tenderness to palpation Lungs: clear to auscultation, no wheezing or rhonchi Heart: Negative. RRR without murmur, gallop, or rubs. No ectopy. Abdomen: Normal abdominal exam, Abdomen soft, non-tender. Bowel sounds normal. No masses, organomegaly Rectal: Not done Extremities: Extremities normal. No deformities, edema, or skin discoloration. Good capillary refill. Musculoskeletal: No joint swelling, deformity, or tenderness. Peripheral pulses: Normal RADIOLOGY/OTHER STUDIES: 06/28/2021 Bilateral screening mammogram ([facility]) No significant suspicious findings in the right breast or left breast. Routine mammogram in 12 months recommended. 02/28/2021 Bone density DEXA ([facility]) Osteoporosis ASSESSMENT/PLAN: 1. Malignant neoplasm of left breast in female, estrogen receptor positive (HCC) - ICD9: 174.4, V86.0, ICD10: C50.412, Z17.0 (primary diagnosis) Stage IIB (pT2, N1mic, M0) ER/IN positive HER-2 negative left-sided breast cancer diagnosed November 2002. Status post left modified radical right mastectomy and lymph node dissection 12/01/2002 (Dr. Dinesh Gomez). Postop the patient received adjuva (more content not included)...[facility]04-05-2022 Miscellaneous Notes* Telephone Encounter - Corinne Bentley MA - 02/06/2022 11:[address]/sign lab orders for 02/15/22. Thanks. Corinne Reyes MA [facility]* Diagnosis Malignant neoplasm of upper-outer quadrant of left breast in female, estrogen receptor positive (HCC)- Primary documented in this encounter [facility] noteNo assessment information availableTwin City Hospital Work Phone: Evaluation noteNo InformationNort [employer] Other History general Narrative - Reported* Type Description Date Medical History CHRONIC KIDNEY DISEASE STAGE 3 Medical History POLYMYALGIA RHEUMATICA Medical History RAISED ANTIBODY TITER Medical History RAISED ESR Medical History IMMUNOLOGIC Medical History CANCER Medical History HYPERTENSION Medical History BACK PAIN Medical History LEFT SIDED BREAST SURGERY Surgical History HIP REPLACEMENT 2011 Surgical History RIGHT KNEE ARTHROSCOPY Surgical History MASTECTOMY LEFT Surgical History HYSTERECTOMY Surgical History WISDOM TEETH Surgical History LUMBAR FUSION X2 Surgical History LEFT KNEE REPLACEMENT 01/2022 Surgical History HIP REPLACEMENT 2014 Hospitalization History SEE ABOVE [employer] Other Summary Purpose Family History Unknown Family Member Name Dates Details Family history of hypertensi on: Father, Sister, Brother(V17.49, Z82.49) Status:Active Family history of acute myoc ardial infarction: Sister(V17.3, Z82.49) Status:Active H/O heart artery stent: Sist er(V45.82, Z95.5) Status:Active Unknown Family Member Name Dates Details Family history of hypertensi on: Father, Sister, Brother(V17.49, Z82.49) Status:Active Family history of acute myoc ardial infarction: Sister(V17.3, Z82.49) Status:Active H/O heart artery stent: Sist er(V45.82, Z95.5) Status:Active Advance Directives Advance Directive Response Recorded Date/ Time Advance Directives No June 12 11:20am Chief Complaint and Reason for Visit Chief Complaint z01.818 Chief Complaint ckd stage 3 hematuri a Chief Complaint overdue HTN* overdue HTN * Patient is in the office for follow-up for the problems noted below. She has not been seen in the office for 2 years. She has remained stable from a cardiac standpoint and her blood pressure is undercontrol. She has tolerated metoprolol and amlodipine fairly well. She is also on hydralazine with no side effects. She has been following with rheumatology and recently had kidney biopsy because of mildly abnormal renal function and suspicion of lupus. She has not been contacted on the results. Blood work that her she has done recently revealed that her kidney function is completely normal. Reassurances were provided. Her weight remains above target and she was advised to continue to work on her weight. * ASSESSMENT AND PLAN: * 1. Hypertension, on medical therapy, which will be left unchanged for the time being. She is on amlodipine, hydralazine and metoprolol. * 2. Hyperlipidemia, on statin therapy with rosuvastatin 40 mg daily, due for lipid profile which is ordered * 3. Overweight. Encouraged the patient to drop her weight further with diet and exercise. Patient refused to be weighed in the office but she indicated weighing 185 pounds at home which seems to be identical to her weight 2 years ago * 4. History of arthritis for which she is on prednisone managed by rheumatology * Lei Goyal MD, [facility] Additional Source Comments Source Comments (unrecognize d section and content) In the event this informatio n is protected by the Federal Confidentiality of Alcohol and Drug Abuse Patient Records regulations: The Federal rules restrict any use of the information to criminally investigate or prosecute any alcohol or drug abuse patient.[facility] the event this information is protected by the Federal Confidentiality of Alcohol and Drug Abuse Patient Records regulations: The Federal rules restrict any use of the information to criminally investigate or prosecute any alcohol or drug abuse patient.[facility] the event this information is protected by the Federal Confidentiality of Alcohol and Drug Abuse Patient Records regulations: The Federal rules restrict any use of the information to criminally investigate or prosecute any alcohol or drug abuse patient.[facility] INFORMATION SOURCE (unrecogn ized section and content) DATE CREATED AUTHOR 12/28/2021 [facility] dical Specialist DATE CREATED AUTHOR AUTHOR'S ORGANIZ ATION 02/16/2022 [facility] DATE CREATED AUTHOR AUTHOR'S ORGANIZ ATION 07/10/2022 [facility] DATE CREATED AUTHOR AUTHOR'S ORGANIZ ATION 08/04/2022 [facility] DATE CREATED AUTHOR AUTHOR'S ORGANIZ ATION 08/04/2022 [employer] DATE CREATED AUTHOR AUTHOR'S ORGANIZ ATION 02/24/2023 [facility] Reason for Visit (unrecogniz ed section and content) REFILL Reason Comments Lab Orders Care Teams (unrecognized sec tion and content) Chipper Relationship Specialty Start Date End Date Florinda Flowers MD [facility] [place] [address] PCP - General Family Practice 01/26/14 Team Status: Inactive Member Role Status Dates Florinda Flowers MD Primary Care Provider Active Ascencion Ortiz MD Attending Provider Active Team Status: Inactive Member Role Status Dates Florinda Flowers MD Primary Care Provider Active Ryan Milton PA-C Attending Provider Active Team Status: Active Member Role Status Dates Florinda Flowers MD Primary Care Provider Active Team Status: Inactive Member Role Status Dates Florinda Flowers MD Primary Care Provider Active Teetee Rizvi MD Attending Provider Active Goals (unrecognized section and content) Goals may be documented in a n alternate sectionNo InformationGoals may be documented in an alternate sectionNo InformationNo InformationNo InformationNo InformationNo InformationNo InformationNo InformationNo InformationNo InformationNo Information FOR RECORDS PERTAINING TO PATIENTS WHO ARE OR HAVE BEEN ENROLLED IN A CHEMICAL DEPENDENCY/SUBSTANCEABUSE PROGRAM, SOME INFORMATION MAY BE OMITTED. This clinical summary was aggregated from multiple sources. Caution should be exercised in using it in the provision of clinical care. This summary normalizes information from multiple sources, and as a consequence, information in this document may materially change the coding, format and clinical context of patient data. In addition, data may be omitted in some cases. CLINICAL DECISIONS SHOULD BE BASED ON THE PRIMARY CLINICAL RECORDS. [facility] [employer] [facility]. provides no warranty or guarantee of the accuracy or completeness of information in this document.
[2023-12-03 11:46] LABS: Erythrocyte Sedimentation Rate 46 mm/hr (<=30)
[2023-12-03 12:11] LABS: C Reactive Protein <0.50 mg/dL (<=0.50)
== END 2023-12-03 10:54 | disposition home or self-care (01) ==
LOC: LAB 10:54
PROVIDERS: PCP Family Medicine; Visit Provider Registered Nurse
DX: M35.3 Polymyalgia rheumatica (principal); R76.0 Raised antibody titer; Z79.899 Other long term (current) drug therapy
CPT/HCPCS: 85652; 86140

== ENCOUNTER 2024-01-23 13:39 | Outpatient (OUT) | payer MEDICARE, SELFPAY | END 2024-01-23 13:40 | disposition home or self-care (01) | LOC: PST 13:40 | PROVIDERS: PCP Family Medicine; Visit Provider Surgery | DX: Z01.818 Encounter for other preprocedural examination (principal); Z86.010 Personal history of colon polyps ==

== ENCOUNTER 2024-02-05 06:29 | Day surgery (SDC) | payer MEDICARE, SELFPAY ==
--- OUTSIDE RECORDS SUMMARY | 2024-02-05 06:33 | XMS_ITS | CCD ---
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 Florinda [...] Unavailable LIONEL, DR FLORINDA Arriola Consulting Unavailable LIONEL, DR FLORINDA Arriola Attending Unavailable LIONEL, DR FLORINDA Arriola Admitting Unavailable LIONEL, DR FLORINDA Arriola Primary Care Unavailable MISC, DR MONGE Attending Unavailable MISC, DR MONGE Admitting Unavailable MISC, DR MONGE Consulting Unavailable LIONEL, DR FLORINDA Arriola Primary Care Unavailable GRILLIS ., DR REHANA Arriola Admitting Unavaila ble GRSERENA ., DR REHANA Arriola Consulting Unavaila ble LIONEL, DR FLORINDA Arriola Primary Care Unavailable GRILLIS ., DR REHANA Arriola Attending Unavaila ble GRSERENA ., DR REHANA Arriola Consulting Unavaila ble KEMAR ., DR REHANA Arriola Attending Unavaila ble LIONEL, DR FLORINDA Arriola Primary Care Unavailable GRILLIS ., DR REHANA Arriola Admitting Unavaila ble ISABEL RAMIREZ Consulting Unavailable FILUTZEMARIA L Consulting Unavailable GOYAL, DR LEI Nicole Attending Unavailable GOYAL, DR LEI Nicole Admitting Unavailable FLOWERS, DR FLORINDA Arriola Primary Care Unavailable GOYAL, DR LEI Nicloe Consulting Unavailable JR. JESSICA, DELL Curry Attending Unavailtianna ADRIAN JR., DELL Curry Referring UnavailFlorinda Medina MD Primary Care Provider [phone] MARIA L WISDOM Attending Unavailable FLORINDA FLOWERS Referring Unavailable FLORINDA FLOWERS Primary Care Unavailable Allergies Allergy Classification Reported Allergen(s) Allergy Type Date of Onset Reaction(s) Facility (20 sources) Acetaminophen / oxyCODONE; Translations: [Percocet TABS] Drug Allergy 10-09-20 05 GI Upset, GI Disturbance [facility] (7 sources) Sulfa Dyne; Translations: [SULFA DYNE] Drug Allergy 09-17-20 12 [facility] (9 sources) fentaNYL; Translations: [FENTANYL] Drug Allergy 09-20-20 17 Unknown, Other (See Comments) [facility] (9 sources) terbinafine; Translations: [TERBINAFINE] Drug Allergy 07-29-20 17 [facility] (3 sources) Penicillins; Translations: [PENICILLINS] Drug Allergy 02-17-20 21 [facility] (4 sources) Penicillin V Drug Allergy Unknown [facility] [employer] Other (1 source) sulfaSALAzine Drug Allergy Unknown [employer] Other (12 sources) terbinafine; Translations: [Lamisil] Drug Allergy 09-09-20 [address] [facility] (1 source) oxyCODONE Drug Allergy 07-04-20 22 [facility] (1 source) Sulfonamides (Antibiotic) Allergy to substance 07-04-20 22 [facility] (2 sources) Penicillins; Translations: [Penicillins] Allergy to drug (finding) [facility] 600 DO Work Phone: (2 sources) Sulfur; Translations: [Sulfur] Drug Allergy [facility] 600 DO Work Phone: (2 sources) Lamisil CREA; Translations: [Lamisil CREA] Allergy to drug (finding) [facility] 600 DO Work Phone: (3 sources) Sulfonamide Drug allergy Unknown [employer] Other (8 sources) Penicillin; Translations: [penicillin] Drug Allergy Unknown [facility] (7 sources) Substance with sulfonamide structure and antibacterial mechanism of action (substance) Drug allergy Unknown [employer] Other (1 source) Acetaminophen / oxyCODONE Drug Allergy 09-09-20 14 [facility] (1 source) Sulfonamides (Antibiotic) Drug allergy (disorder) 09-09-20 14 [facility] (1 source) terbinafine Drug Allergy 07-29-20 17 Unknown [employer] Other (2 sources) Penicillins Propensity to adverse reactions to drug 02-17-20 21 [facility] Medications Current Medications Medication Drug Class(es) Dates Sig (Normalized) Sig (Original) 8 hr acetaminophen 650 mg extended release oral tablet (11 sources) take 2 tablets by mo uth every eight hours take 2 tablets by mo uth every eight hours as needed Acetaminophen ER 650 MG 2 tablets as nee ded Orally every 8 hrs Active amLODIPine 5 mg oral tablet (18 sources) Dihydropyridine Calcium Channel Rosario Start: 02-18-2018 take 1 tablet by mouth in the morning amLODIPine (NORVASC) 5 mg tablet Take 1 tablet (5 mg total) by mouth in the morning. 3 02/18/2018 Active Comment on above: Take 5 mg by mouth. cholecalciferol 0.05 mg oral capsule (1 source) Vitamin D take 1 capsule by mouth every twenty-four hours cholecalciferol, vitamin D3, (VITAMIN D3 ORAL) (2 sources) cholecalciferol , vitamin D3, (VITAMIN D3 ORAL) daily. 0 Active ezetimibe 10 mg / simvastatin 40 mg oral tablet (5 sources) HMG-CoA Reductase Inhibitor, Dietary Cholesterol Absorption Inhibitor Start: 08-23-2006 take 1 tablet by mouth once daily ezetimibe-simva statin (VYTORIN) 10-40 mg per tablet Take 1 tablet by mouth nightly. 0 08/23/2006 Active Comment on above: Take one(1) tablet d aily. fluconazole 100 mg oral tablet (7 sources) Azole Antifungal Start: 12-24-2022 take 1 tablet by mouth every twenty-four hours hydrALAZINE hydrochloride 50 mg oral tablet (18 sources) Arteriolar Vasodilator Start: 02-15-2018 take 1 tablet by mouth in the morning hydrALAZINE (APRESOLINE) 50 mg tablet Take 1 tablet (50 mg total) by mouth in the morning. 3 02/15/2018 Active Comment on above: Take 50 mg by mouth. lidocaine 0.05 mg/mg medicated patch (2 sources) Antiarrhythmic, Amide Local Anesthetic Start: 07-21-2023 apply 1 dose transdermal route once daily as needed for pain lidocaine (LIDODERM) 5 % Place 1 patch on the skin daily as needed for pain (pain) for up to 15 doses. Remove & Discard patch within 12 hours or as directed by MD 15 patch 0 07/21/2023 Active metoprolol tartrate 25 mg oral tablet (20 sources) beta-Adrenergic Rosario Start: 02-18-2018 metoprolol tartrate (LOPRESSOR) 25 mg tablet 1 tablet (25 mg total) in the morning and 1 tablet (25 mg total) before bedtime. 3 02/18/2018 Active Start: 08-21-2012 METOPROLOL TAR TRATE, SHORT ACTING, 50 mg tablet multivitamin (THERAGRAN) tablet (2 sources) Start: 10-09-2005 take 1 tablet by mouth in the morning multivitamin (THERAGRAN) tablet Take 1 tablet by mouth in the morning. 0 10/09/2005 Active ondansetron 4 mg oral tablet (4 sources) Serotonin-3 Receptor Antagonist take 1 tablet by mouth three times daily as needed for nausea Zofran 4 MG 1 tablet Orally 3 times a day prn nausea Active predniSONE 20 mg oral tablet (20 sources) Start: 09-30-2022 take 1 tablet by mouth every twelve hours predniSONE 20 MG 1 tablet Orally 2 times a day for 5 day(s) Sep, Active Start: 07-04-2022 take 1 tablet by dalia th in the morning predniSONE (DELTASONE) 5 mg tablet Take 1 tablet (5 mg total) by mouth in the morning. 0 08/21/2022 Active Start: 02-01-2022 take 2 tablets by mo uth once daily predniSONE 5 MG Oral Tablet TAKE 2 TABLETS BY MOUTH ONCE DAILY OR DIRECTED Quantity: 60 Refills: 0 Ordered: 06-Jun-2022 DO Start : 01-Feb-2022 Active rosuvastatin calcium 40 mg oral tablet (17 sources) HMG-CoA Reductase Inhibitor Start: 02-15-2018 take 1 tablet by mouth in the morning rosuvastatin (CRESTOR) 40 mg tablet Take 1 tablet (40 mg total) by mouth in the morning. 3 02/15/2018 Active sod sulf-pot chloride-mag sulf 1.479-0.188- 0.225 gram tablet (3 sources) Start: 01-29-2024 sod sulf-pot chloride-mag sulf 1.479-0.188- 0.225 gram tablet Indications: History of colon polyps Please see instructional sheet given by physicians office. 24 tablet 0 01/29/2024 Active Start: 01-03-2024 End: 01-29-2024 sod sulf-pot chloride-mag ross lf 1.479-0.188- 0.225 gram tablet Indications: History of colon polyps Please see instructional sheet given by physicians office. 24 tablet 0 01/03/2024 01/29/2024 Discontinued (Duplicate order) Start: 01-03-2024 sod sulf-pot c hloride-mag sulf 1.479-0.188- 0.225 gram tablet Indications: History of colon polyps Please see instructional sheet given by physicians office. 24 tablet 0 01/03/2024 Active ubidecarenone 200 mg oral capsule (2 sources) take 10 capsules by mouth once in the morning coenzyme Q10 200 mg capsule Take 200 mg by mouth in the morning. 0 Active Vitamin D 50 MCG (1999) (10 sources) take 1 capsule by mo uth once daily take 1 capsule by mouth once yonatan ly Vitamin D 50 MCG (1999) 1 capsule Orally Once a day Active zolpidem tartrate 10 mg oral tablet (16 sources) gamma-Aminobutyric Acid-ergic Agonist Start: 10-29-2023 take [...] day for 90 days Apr, Active Start: 07-18-2012 take 1 tablet by dalia th every twenty-four hours Ambien 10 MG 1 tablet at bedtime as needed Orally Once a day for 90 days Dec, Active Comment on above: Take 10 mg by mouth once daily. Completed/Discontinued Medications Medication Drug Class(es) Dates Sig (Normalized) Sig (Original) alendronic acid 70 mg oral tablet (19 sources) Bisphosphonate Start: 02-16-2022 take 1 tablet by mouth every week Alendronate Sodium 70 MG Oral Tablet TAKE 1 TABLET BY MOUTH ONCE A WEEK Quantity: 12 Refills: 0 Ordered: 07-May-2022 DO Start : 16-Feb-2022 Active Start: 07-13-2012 ALENDRONATE 70 mg tablet alendronate (FOS AMAX) 70 mg tablet Take 1 tablet (70 mg total) by mouth every 7 days. 0 Active ergocalciferol 2000 unt oral tablet (3 sources) Provitamin D2 Compound Start: 06-09-2013 take 1 tablet by mouth once daily ergocalciferol, vitamin D2, 2,000 unit Tab Indications: Personal history of malignant neoplasm of breast , Creatinine elevation Take 1 tablet by mouth once daily. 30 tablet 3 06/09/2013 Active Comment on above: Take 1 tablet by dalia th once daily. hydroCHLOROthiazide 12.5 mg / valsartan 160 mg oral tablet (3 sources) Thiazide Diuretic, Angiotensin 2 Receptor Rosario Start: 07-01-2012 DIOVAN HCT 160-12.5 mg per tablet MULTIVITAMIN TAB (4 sources) Start: 10-09-2005 MULTIVITAMIN TAB Take one(1) tablet daily. 0 10/09/2005 Active Comment on above: Take one(1) tablet d aily. 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] Onset: 02-24-2023 Episodic Other and unspecified benign neoplasm (5 sources) Personal history of colonic polyps; Translations: [PERSONAL HISTORY OF COLONIC POLYPS] Onset: 2022 Episodic Other and unspecified benign neoplasm (2 sources) History of polyp of colon; Translations: [Personal history of colonic polyps] 01-03-2024 Episodic Other circulatory disease (4 sources) Elevated [...] Chronic sinusitis; Translations: [Chronic sinusitis, unspecified] Chronic Regional enteritis and ulcerative colitis (2 sources) Pseudopolyposis of colon; Translations: [Inflammatory polyps of colon without complications] Onset: 06-24-2023 06-24-2023 Chronic Unclassified (3 sources) History of repair of hip joint; Translations: [Hip joint replacement by other means] 09-17-2012 Unclassified (1 source) CONTACT W/AND (SUSP) EXPOS COVID-19; Translations: [CONTACT W/AND (SUSP) EXPOS COVID-19] Onset: 11-26-2022 Unclassified (1 source) Colon Cancer Screening Onset: 01-03-2024 Past or Other Problems Problem Classification Problem [...] 10-01-2005 Episodic Other and unspecified benign neoplasm (1 source) Benign neoplasm of sigmoid colon; Translations: [BENIGN NEOPLASM OF SIGMOID COLON] Onset: 11-23-2022 Episodic Other bone disease and musculoskeletal deformities (4 sources) Bone density finding; Translations: [Other specified disorders of bone density and structure, unspecified site] Onset: 03-08-2014 Episodic Other non-traumatic joint disorders (2 sources) Pain in right knee; Translations: [Pain in joint, lower leg] Onset: 06-24-2023 06-24-2023 Episodic Other screening for suspected conditions (not [...] /IGG/IGMon 02-21-2023 Anticardiolipin Ab,IgA,Qn <9 Normal 0-11 [facility] Comment on above: Result Comment: Nega tive: <12 Indeterminate: 12 - 20 Low-Med Positive: >20 - 80 High Positive: >80 Performed By: #### A CAQUKATIUSKA #### [facility] [address] [place] [address] Dr. Myrna Antony Anticardiolipin Ab,IgG,Qn <9 Normal 0-14 [facility] Comment on above: Result Comment: Nega tive: <15 Indeterminate: 15 - 20 Low-Med Positive: >20 - 80 High Positive: >80 Performed By: #### A CAQUAN #### [facility] [address] [place] [address] Dr. Myrna Antony Anticardiolipin Ab,IgM,Qn 22 MPL U/mL Critically high 0-12 [facility] Comment on above: Result Comment: Nega tive: <13 Indeterminate: 13 - 20 Low-Med Positive: >20 - 80 High Positive: >80 Performed By: #### A CAQUAN #### [facility] [address] [place] [address] Dr. Myrna Antony CRPon 02-20-2023 CRP [Mass/Vol] mg/L Normal <=1.0 [facility] Comment on above: Performed By: #### C RP #### [facility] [address] [place] [address] Dr. Myrna Antony SED RATE WESTERGRENon 2022 SED RATE 32 mm/hr Critically high <=30 [facility] Comment on above: Performed By: #### A CAQUAN #### [facility] [address] [place] [address] Dr. Myrna Antony CBC AUTO DIFFon 12-24-2022 BASO # 0.0 103/ul Normal 0.0-0.1 [facility] Comment on above: Performed By: #### C BC #### [facility] [address] [place] [address] Dr. Myrna Antony Basophils/100 WBC (Bld) 0.5 % Normal 0.2-2.0 [facility] Comment on above: Performed By: #### C BC #### [facility] [address] [place] [address] Dr. Myrna Antony EO # 0.3 103/ul Normal 0.0-0.7 [facility] Comment on above: Performed By: #### C BC #### [facility] [address] [place] [address] Dr. Myrna Antony Eosinophils/100 WBC (Bld) 3.9 % Normal 0.9-7.0 [facility] Comment on above: Performed By: #### C BC #### [facility] [address] [place] [address] Dr. Myrna Antony Erythrocyte distribution width (RBC) [Ratio] 13.6 % Normal 11.0-15.0 [facility] Comment on above: Performed By: #### C BC #### [facility] [address] [place] [address] Dr. Myrna Antony Hematocrit (Bld) [Volume fraction] 40.4 % Normal 36.0-48.0 [facility] Comment on above: Performed By: #### C BC #### [facility] [address] [place] [address] Dr. Myrna Antony Hemoglobin (Bld) [Mass/Vol] 13.5 g/dL Normal 12.0-16.0 [facility] Comment on above: Performed By: #### C BC #### [facility] [address] [place] [address] Dr. Myrna Antony IG # 0.02 10e3/ul Normal 0.00-0.03 [facility] Comment on above: Performed By: #### C BC #### [facility] [address] [place] [address] Dr. Myrna Antony IG % 0.2 % Normal 0.0-0.5 [facility] Comment on above: Performed By: #### C BC #### [facility] [address] [place] [address] Dr. Myrna Antony LYMPH # 1.5 103/ul Normal 1.2-3.8 [facility] Comment on above: Performed By: #### C BC #### [facility] [address] [place] [address] Dr. Myrna Antony Lymphocytes/100 WBC (Bld) 19.2 % Critically low 20.5-60.0 [facility] Comment on above: Performed By: #### C BC #### [facility] [address] [place] [address] Dr. Myrna Antony MANUAL DIFF REQ NO Normal [facility] Comment on above: Performed By: #### C BC #### [facility] [address] [place] [address] Dr. Myrna Antony MCH (RBC) [Entitic mass] 29.7 pg Normal 26.7-34.0 [facility] Comment on above: Performed By: #### C BC #### [facility] [address] [place] [address] Dr. Myrna Antony MCHC (RBC) [Mass/Vol] 33.4 g/dL Normal 29.9-35.2 [facility] Comment on above: Performed By: #### C BC #### [facility] [address] [place] [address] Dr. Myrna Antony MCV (RBC) [Entitic vol] 89.0 fL Normal 81.0-99.0 [facility] Comment on above: Performed By: #### C BC #### [facility] [address] [place] [address] Dr. Myrna Antony MONO # 0.8 103/ul Normal 0.3-0.8 [facility] Comment on above: Performed By: #### C BC #### [facility] [address] [place] [address] Dr. Myrna Antony Monocytes/100 WBC (Bld) 10.2 % Normal 1.7-12.0 [facility] Comment on above: Performed By: #### C BC #### [facility] [address] [place] [address] Dr. Myrna Antony NEUT # 5.3 103/ul Normal 1.4-6.5 [facility] Comment on above: Performed By: #### C BC #### [facility] [address] [place] [address] Dr. Myrna Antony Neutrophils/100 WBC (Bld) 66.0 % Normal 43.0-75.0 [facility] Comment on above: Performed By: #### C BC #### [facility] [address] [address] [address] Myrna Antony Platelet mean volume (Bld) [Entitic vol] 9.2 fL Critically low 9.5-13.5 [facility] Comment on above: Performed By: #### C BC #### [facility] [address] [address] [address] Myrna Antony PLT 277 103/ul Normal 150-450 [facility] Comment on above: Performed By: #### C BC #### [facility] [address] [address] [address] Myrna Antony RBC 4.54 106/ul Normal 4.20-5.40 [facility] Comment on above: Performed By: #### C BC #### [facility] [address] [place] [address] Dr. Myrna Antony WBC 8.0 103/ul Normal 4.0-11.0 [facility] Comment on above: Performed By: #### C BC #### [facility] [address] [place] [address] Dr. Myrna Antony LIPID PROFILEon 12-24-2022 CHOL-HDL RATIO NORM SEE BELOW Normal [facility] Comment on above: Result Comment: 3.3 - 4.4 LOW RISK 4.4 - 7.1 AVERAGE RISK 7.1 - 11.0 MODERATE RISK >11.0 HIGH RISK Performed By: #### A CAQUAN #### [facility] [address] [place] [address] Dr. Myrna Antony Cholesterol [Mass/Vol] 192 mg/dL Normal <=200 [facility] Comment on above: Performed By: #### A CAQUAN #### [facility] [address] [place] [address] Dr. Myrna Antony Cholesterol in HDL [Mass/Vol] 69 mg/dL Critically high 40-60 [facility] Comment on above: Performed By: #### A CAQUAN #### [facility] [address] [place] [address] Dr. Myrna Antony Cholesterol in LDL [Mass/Vol] 99.8 mg/dL Normal [facility] Comment on above: Performed By: #### A CAQUAN #### [facility] [address] [address] [address] Myrna Antony Cholesterol.total/Mary sterol in HDL [Mass ratio] 2.8 {ratio} Normal [facility] Comment on above: Performed By: #### A CAQUAN #### [facility] [address] [address] [address] Myrna Antony HDL NORMAL > or = 60 mg/dl - LO W CARDIOVASCULAR RISK <40 mg/dl - HIGH CARDIOVASCULAR RISK Normal [facility] Comment on above: Performed By: #### A CAQUAN #### [facility] [address] [address] [address] Myrna Antony LDL CALC NORMAL SEE BELOW Normal [facility] Comment on above: Result Comment: <100 mg/dl OPTIMAL 100 - 129 mg/dl NEAR OR ABOVE OPTIMAL 130 - 159 mg/dl BORDERLINE HIGH 160 - 189 mg/dl HIGH >190 mg/dl VERY HIGH Performed By: #### A CAQUAN #### [facility] [address] [place] [address] Dr. Myrna Antony Triglyceride [Mass/Vol] 116 mg/dL Normal <=150 [facility] Comment on above: Performed By: #### A CAQUAN #### [facility] [address] [place] [address] Dr. Myrna Antony VLDL CALC 23.2 mg/dL Normal [facility] Comment on above: Performed By: #### A CAQUAN #### [facility] [address] [address] [address] Myrna Antony PROF 14(COMP METB)on 023 Albumin [Mass/Vol] 3.9 g/dL Normal 3.4-5.0 [facility] Comment on above: Performed By: #### A CAQUAN #### [facility] [address] [place] [address] Dr. Myrna Antony Albumin/Globulin [Mass ratio] 1.1 {ratio} Normal [facility] Comment on above: Performed By: #### A CAQUAN #### [facility] [address] [address] [address] Myrna Antony ALP [Catalytic activity/Vol] 57 U/L Normal 46-116 [facility] Comment on above: Performed By: #### A CAQUAN #### [facility] [address] [address] [address] Myrna Antony ALT [Catalytic activity/Vol] 39 U/L Normal 14-59 [facility] Comment on above: Performed By: #### A CAQUAN #### [facility] [address] [address] [address] Myrna Antony Anion gap [Moles/Vol] 12.7 mmol/L Normal [facility] Comment on above: Performed By: #### A CAQUAN #### [facility] [address] [place] [address] Dr. Myrna Antony AST [Catalytic activity/Vol] 32 U/L Normal 15-37 [facility] Comment on above: Performed By: #### A CAQUAN #### [facility] [address] [address] [address] Myrna Antony Bilirubin [Mass/Vol] 1.4 mg/dL Critically high 0.2-1.0 [facility] Comment on above: Performed By: #### A CAQUAN #### [facility] [address] [place] [address] Dr. Myrna Antony Calcium [Mass/Vol] 9.6 mg/dL Normal 8.5-10.1 [facility] Comment on above: Performed By: #### A CAQUAN #### [facility] [address] [place] [address] Dr. Myrna Antony Chloride [Moles/Vol] 103 mmol/L Normal 98-107 [facility] Comment on above: Performed By: #### A CAQUAN #### [facility] [address] [address] [address] Myrna Antony CO2 [Moles/Vol] 26.5 mmol/L Normal 21.0-32.0 [facility] Comment on above: Performed By: #### A CAQUAN #### [facility] [address] [address] [address] Myrna Antony Creatinine [Mass/Vol] 1.06 mg/dL Critically high 0.55-1.02 [facility] Comment on above: Performed By: #### A CAQUAN #### [facility] [address] [address] [address] Myrna Antony EGFR-AF WELSH >60 Normal >=60 [facility] Comment on above: Performed By: #### A CAQUAN #### [facility] [address] [address] [address] Myrna Antony EGFR-NON AF WELSH 52 mL/min/1.73m2 Critically low >=60 [facility] Comment on above: Performed By: #### A CAQUAN #### [facility] [address] [address] [address] Myrna Antony Globulin (S) [Mass/Vol] 3.6 g/dL Normal [facility] Comment on above: Performed By: #### A CAQUAN #### [facility] [address] [address] [address] Myrna Antony Glucose [Mass/Vol] 104 mg/dL Normal 74-106 [facility] Comment on above: Performed By: #### A CAQUAN #### [facility] [address] [address] [address] Myrna Antony Potassium [Moles/Vol] 4.2 mmol/L Normal 3.5-5.1 [facility] Comment on above: Performed By: #### A CAQUAN #### [facility] [address] [address] [address] Myrna Antony Protein [Mass/Vol] 7.5 g/dL Normal 6.4-8.2 [facility] Comment on above: Performed By: #### A CAQUAN #### [facility] [address] [address] [address] Myrna Antony Sodium [Moles/Vol] 138 mmol/L Normal 136-145 [facility] Comment on above: Performed By: #### A CAQUAN #### [facility] [address] [address] [address] Myrna Antony Urea nitrogen [Mass/Vol] 29.0 mg/dL Critically high 7.0-18.0 [facility] Comment on above: Performed By: #### A BHAVESH #### [facility] [address] [place] [address] Dr. Myrna Antony Urea nitrogen/Creatinine [Mass ratio] 27.4 mg/mg Normal [facility] Comment on above: Performed By: #### A BHAVESH #### [facility] [address] [place] [address] Dr. Myrna Antony Covid-19 PCR ([facility])on 11-04 SARS-CoV-2 (COVID-19) RNA NEO+probe Ql (Unsp spec) Not detected Normal NOT DETECTED [facility] Comment on above: Result Comment: This test is not yet approved or cleared by the [place] FDA. When there are no FDA-approved or cleared tests available, and other criteria are met, FDA can make tests available under an emergency access mechanism called an Emergency Use Authorization (EUA). The EUA for this test is supported by the Converting Technician of Health and Human Service's (HHS's) declaration [...] SARS-CoV-2. Performed By: #### C VDTBH #### [facility] [address] [place] [address] Dr. Myrna Antony ANTICARDIOLIPIN AB (AKASH) IGA /IGG/IGMon 11-01-2022 Anticardiolipin Ab,IgA,Qn <9 Normal 0-11 [facility] Comment on above: Result Comment: Nega tive: <12 Indeterminate: 12 - 20 Low-Med Positive: >20 - 80 High Positive: >80 Performed By: #### A CAQUAN #### [facility] [address] [address] [address] Myrna Antony Anticardiolipin Ab,IgG,Qn <9 Normal 0-14 [facility] Comment on above: Result Comment: Nega tive: <15 Indeterminate: 15 - 20 Low-Med Positive: >20 - 80 High Positive: >80 Performed By: #### A CAQUAN #### [facility] [address] [address] [address] Myrna Antony Anticardiolipin Ab,IgM,Qn 57 MPL U/mL Critically high 0-12 [facility] Comment on above: Result Comment: Nega tive: <13 Indeterminate: 13 - 20 Low-Med Positive: >20 - 80 High Positive: >80 Performed By: #### A CABONNIEAN #### [facility] [address] [address] [address] Myrna Antony CRPon 10-31-2022 CRP [Mass/Vol] mg/L Normal <=1.0 [facility] Comment on above: Performed By: #### C RP #### [facility] [address] [address] [address] [facility] mm/hr Critically high <=30 [facility] Comment on above: Performed By: #### S EDR #### [facility] [address] [address] [address] Myrna Antony COVID/FLU RT-PCRon SARS-CoV-2 (COVID-19) RNA NEO+probe Ql (Unsp spec) Negative [employer] Other COVID/FLU RT-PCR Positive [employer] Other COVID/FLU RT-PCR Negative [employer] Other LIPID PROFILEon 07-30-2022 CHOL-HDL RATIO NORM SEE BELOW Normal [facility] Comment on above: Result Comment: 3.3 - 4.4 LOW RISK 4.4 - 7.1 AVERAGE RISK 7.1 - 11.0 MODERATE RISK >11.0 HIGH RISK Performed By: #### A CABONNIEAN #### [facility] [address] [place] [address] Dr. Myrna Antony Cholesterol [Mass/Vol] 177 mg/dL Normal <=[address] [facility] Comment on above: Performed By: #### A CAQUAN #### [facility] [address] [place] [address] Dr. Myrna Antony Cholesterol in HDL [Mass/Vol] 70 mg/dL Critically high 40-60 [facility] Comment on above: Performed By: #### A CABONNIEAN #### [facility] [address] [place] [address] Dr. Myrna Antony Cholesterol in LDL [Mass/Vol] 92.4 mg/dL Normal [facility] Comment on above: Performed By: #### A CABONNIEAN #### [facility] [address] [place] [address] Dr. Myrna Antony Cholesterol.total/Mary sterol in HDL [Mass ratio] 2.5 {ratio} Normal [facility] Comment on above: Performed By: #### A CABONNIEAN #### [facility] [address] [place] [address] Dr. Myrna Antony HDL NORMAL > or = 60 mg/dl - LO W CARDIOVASCULAR RISK <40 mg/dl - HIGH CARDIOVASCULAR RISK Normal [facility] Comment on above: Performed By: #### A CAQUAN #### [facility] [address] [place] [address] Dr. Myrna Antony LDL CALC NORMAL SEE BELOW Normal [facility] Comment on above: Result Comment: <100 mg/dl OPTIMAL 100 - 129 mg/dl NEAR OR ABOVE OPTIMAL 130 - 159 mg/dl BORDERLINE HIGH 160 - 189 mg/dl HIGH >190 mg/dl VERY HIGH Performed By: #### A CAQUAN #### [facility] [address] [place] [address] Dr. Myrna Antony Triglyceride [Mass/Vol] 73 mg/dL Normal <=150 [facility] Comment on above: Performed By: #### A CABONNIEAN #### [facility] [address] [address] [address] Myrna Antony VLDL CALC 14.6 mg/dL Normal [facility] Comment on above: Performed By: #### A CAQUAN #### [facility] [address] [id number] Myrna Antony SGOTon 07-30-2022 AST [Catalytic activity/Vol] 34 U/L Normal 15-37 [facility] Comment on above: Performed By: #### A CAQUAN #### [facility] [address] [address] [address] Myrna Antony SGPTon 07-30-2022 ALT [Catalytic activity/Vol] 44 U/L Normal 14-59 [facility] Comment on above: Performed By: #### A CAQUAN #### [facility] [address] [place] [address] Dr. Myrna Antony Office Visit (Cardiology)on 07-20-2022 Follow-up visit Diagnoses/Problems Assessed Essential hypertension (401.9) (I10) Hyperlipidemia, unspecified (272.4) (E78.5) Sinus bradycardia (427.89) (R00.1) Former smoker (V15.82) (Z87.891) Overweight (278.02) (E66.3) Orders Hyperlipidemia, unspecified Renew: Rosuvastatin Calcium 40 MG Oral Tablet; TAKE 1 TABLET DAILY ALT - Alanine Aminotransferase, Serum; Status:Active; Requested for:[id number]; AST; Status:Active; Requested for:[id number]; Lipid Panel; Status:Active; Requested for:[id number]; SocHx: Former smoker Tobacco Use Screening; Status:Complete; Done: [id number] Patient Instructions Please bring all medicines, vitamins, [...] prednisone managed by rheumatology Lei Goyal MD, [facility] Active Problems Problems Essential hypertension (401.9) (I10) [...] negative for complaint. Vitals Vital Signs Recorded: [id number] 01:49PM Heart Rate66, L Radial Pbhcohdd098, RUE, Sitting Bcstjrsqj98, RUE, Sitting Height5 ft 6 in Tobacco [...] Screening.on 022 Adult depression screening assessment No [facility] 600 DO Work Phone: Fall risk assessment a) No falls within the last year [facility] [employer] 600 DO Work Phone: Tobacco use status CP b) No M [facility] [employer] 600 DO Work Phone: WADE with Reflexon 07-04-2022 WADE with Reflex Negative Normal Negative [facility] Comment on above: Order Comment: Reaso n for Exam Chronic kidney disease, stage 3a;Hematuria, unspecified;Prot Result Comment: Perf ormed at: - [facility] [address] [id number] [employer] Polisher: Cody Williamson PhD, Phone: [phone] Performed By: #### C H50, C4, C3 #### [facility] , #### ESR, CBC #### [facility] [address] [place] [address] Activated partial thrombopla stin time (aPTT) in platelet poor plasma by coagulation aOrdered By: Teetee Rizvi on 07-04-2022 aPTT Coag (PPP) [Time] 28.8 s 25.1-36.5 [facility] Albumin [Mass/volume] in Ser um or PlasmaOrdered By: Teetee Rizvi on 07-04-2022 Albumin [Mass/Vol] 3.7 g/dL 3.2-5.5 [facility] Antimyeloperoxidase (MPO) Ab son 07-04-2022 Antimyeloperoxidase (MPO) Abs <0.2 Normal 0.0-0.9 [facility] Comment on above: Order Comment: Reaso n for Exam Chronic kidney disease, stage 3a;Hematuria, unspecified;Prot Performed By: #### C H50, C4, C3 #### [facility] , #### ESR, CBC #### [facility] [address] [place] [address] Automated erythrocytes count in urine sediment (number/area)Ordered By: Teetee Rizvi on 07-04-2022 RBC Auto (Urine sed) [#/Area] 5-9 [HPF] 0-4 [facility] Automated leukocytes count i n urine sediment (number/area)Ordered By: Teetee Rizvi on 07-04-2022 WBC Auto (Urine sed) [#/Area] 1-2 [HPF] 0-4 [facility] Bilirubin Test strip Ql (U)O rdered By: Teetee Rizvi on 07-04-2022 Bilirubin Ql (U) Negative Negative [facility] Blood hemoglobin measurement (mass/volume)Ordered By: Teetee Rizvi on 07-04-2022 Hemoglobin (Bld) [Mass/Vol] 12.6 g/dL 11.8-15.[address] [facility] [address] guided needle placementon 07-04-2022 CT guided needle placement [facility] [place] [address] CT Scan Report Signed Patient: Uzma Alfred MR#: [id number] 6 : 1955 Acct:[id number] Age/Sex: 66 / F ADM Date: 07/04/22 Loc: CT Room: Type: [facility] Attending Dr: Teetee Rizvi MD Copies [...] Luis Figueredo M.D.07/04/2022 2:08 PM Dictation Location: [address] [address] Transcribed By: [facility] 07/04/22 140 Dictated By: Luis Figueredo DO 07/04/221401 Signed By: 07/04/22 140 Normal [facility] Color Auto (U)Ordered By: Cesar Rizvi on 07-04-2022 Color (U) Yellow Yellow [facility] Complement C3on 07-04-2022 Complement C3 144 mg/dL Normal 82-167 [facility] Comment on above: Order Comment: Reaso n for Exam Chronic kidney disease, stage 3a;Hematuria, unspecified;Prot Result Comment: Perf ormed at: - [facility] [address] [id number] [employer]isher: Cody Williamson PhD, Phone: [phone] Performed By: #### C H50, C4, C3 #### [facility] , #### ESR, CBC #### [address] Complement C4on 07-04-2022 Complement C4 22 mg/dL Normal 12-38 [facility] Comment on above: Order Comment: Reaso n for Exam Chronic kidney disease, stage 3a;Hematuria, unspecified;Prot Performed By: #### C H50, C4, C3 #### [facility] , #### ESR, CBC #### [facility] [address] [place] [address] Comprehensive Metabolic Pane raffaele 07-04-2022 Albumin [Mass/Vol] 3.7 g/dL Normal 3.2-5.5 [facility] Comment on above: Order Comment: Reaso n for Exam Chronic kidney disease, stage 3a;Hematuria, unspecified;Prot PER RICK AT DR'S OFFICE OK TO DO LABS TODAY. Performed By: #### C MP, PTH, [id number], URIC #### [address] Albumin/Globulin [Mass ratio] 1.2 {ratio} Normal [facility] Comment on above: Order Comment: Reaso n for Exam Chronic kidney disease, stage 3a;Hematuria, unspecified;Prot PER RICK AT DR'S OFFICE OK TO DO LABS TODAY. Performed By: #### C MP, PTH, [id number], URIC #### [facility] [address] [place] [address] ALP [Catalytic activity/Vol] 61 U/L Normal 32-92 [facility] Comment on above: Order Comment: Reaso n for Exam Chronic kidney disease, stage 3a;Hematuria, unspecified;Prot PER RICK AT DR'S OFFICE OK TO DO LABS TODAY. Performed By: #### C MP, PTH, [id number], URIC #### [facility] [address] ALT [Catalytic activity/Vol] 20 U/L Normal 10-60 [facility] Comment on above: Order Comment: Reaso n for Exam Chronic kidney disease, stage 3a;Hematuria, unspecified;Prot PER RICK AT DR'S OFFICE OK TO DO LABS TODAY. Performed By: #### C MP, PTH, [id number], URIC #### [address] Anion gap [Moles/Vol] 13.7 mmol/L Normal 6.0-15.0 [facility] Comment on above: Order Comment: Reaso n for Exam Chronic kidney disease, stage 3a;Hematuria, unspecified;Prot PER RICK AT DR'S OFFICE OK TO DO LABS TODAY. Performed By: #### C MP, PTH, [id number], URIC #### [address] AST [Catalytic activity/Vol] 22 U/L Normal 10-42 [facility] Comment on above: Order Comment: Reaso n for Exam Chronic kidney disease, stage 3a;Hematuria, unspecified;Prot PER RICK AT DR'S OFFICE OK TO DO LABS TODAY. Performed By: #### C MP, PTH, [id number], URIC #### [address] Bilirubin [Mass/Vol] 1.6 mg/dL High 0.3-1.2 [facility] Comment on above: Order Comment: [...] Bilirubin. Performed By: #### C MP, PTH, [id number], URIC #### [place] [address] [place] Calcium [Mass/Vol] 8.9 mg/dL Normal 8.2-10.2 [facility] Comment on above: Order Comment: Reaso n for Exam Chronic kidney disease, stage 3a;Hematuria, unspecified;Prot PER RICK AT DR'S OFFICE OK TO DO LABS TODAY. Performed By: #### C MP, PTH, [id number], URIC #### [facility] [address] Chloride [Moles/Vol] 106 mmol/L Normal 95-114 [facility] Comment on above: Order Comment: Reaso n for Exam Chronic kidney disease, stage 3a;Hematuria, unspecified;Prot PER RICK AT DR'S OFFICE OK TO DO LABS TODAY. Performed By: #### C MP, PTH, [id number], URIC #### [facility] [address] CO2 [Moles/Vol] 23.1 mmol/L Normal 22.0-30.0 [facility] Comment on above: Order Comment: Reaso n for Exam Chronic kidney disease, stage 3a;Hematuria, unspecified;Prot PER RICK AT DR'S OFFICE OK TO DO LABS TODAY. Performed By: #### C MP, PTH, [id number], URIC #### [facility] [address] Creatinine [Mass/Vol] 0.76 mg/dL Normal 0.44-1.03 [facility] Comment on above: Order Comment: Reaso n for Exam Chronic kidney disease, stage 3a;Hematuria, unspecified;Prot PER RICK AT DR'S OFFICE OK TO DO LABS TODAY. Performed By: #### C MP, PTH, [id number], URIC #### [facility] [address] [phone] [place] Creatinine Clr Calc Pharmacy 76.30 [facility] Comment on above: Order Comment: Reaso n for Exam Chronic kidney disease, stage 3a;Hematuria, unspecified;Prot PER RICK AT DR'S OFFICE OK TO DO LABS TODAY. Performed By: #### C MP, PTH, [id number], URIC #### [facility] [address] Estimated GFR ( Lexis > 60 Normal [facility] Comment on above: Order Comment: Reaso n for Exam Chronic kidney disease, stage 3a;Hematuria, unspecified;Prot PER RICK AT DR'S OFFICE [place] TO DO LABS TODAY. Result Comment: GFR estimated reference range: According to KDOQI guidelines, <60 ml/min/1.73m2 is sufficient to diagnose a patient with chronic kidney disease. Performed By: #### C MP, PTH, [id number], URIC #### [facility] [address] Estimated GFR (Non- Am > 60 [facility] Comment on above: Order Comment: Reaso n for Exam Chronic kidney disease, stage 3a;Hematuria, unspecified;Prot PER RICK AT DR'S OFFICE [place] TO DO LABS TODAY. Performed By: #### C MP, PTH, [id number], URIC #### [address] Globulin (S) [Mass/Vol] 3.1 g/dL Normal [facility] Comment on above: Order Comment: Reaso n for Exam Chronic kidney disease, stage 3a;Hematuria, unspecified;Prot PER RICK AT DR'S OFFICE [place] TO DO LABS TODAY. Performed By: #### C MP, PTH, [id number], URIC #### [facility] [address] Glucose [Mass/Vol] 119 mg/dL High 70-100 [facility] Comment on above: Order Comment: Reaso n for Exam Chronic kidney disease, stage 3a;Hematuria, unspecified;Prot PER RICK AT DR'S OFFICE OK TO DO LABS TODAY. Result Comment: [place] Glucose Reference Range is dependent on time and content of last meal. Glucose of more than 200 mg/dL in a nonstressed, ambulatory subject supports the diagnosis of Diabetes Mellitus. ADA recommended reference range Performed By: #### C MP, PTH, [id number], URIC #### [address] Potassium [Moles/Vol] 3.8 mmol/L Normal 3.5-5.1 [facility] Comment on above: Order Comment: Reaso n for Exam Chronic kidney disease, stage 3a;Hematuria, unspecified;Prot PER RICK AT DR'S OFFICE [place] TO DO LABS TODAY. Performed By: #### C MP, PTH, [id number], URIC #### [facility] [address] [phone] [place] Protein [Mass/Vol] 6.8 g/dL Normal 6.1-7.9 [facility] Comment on above: Order Comment: Reaso n for Exam Chronic kidney disease, stage 3a;Hematuria, unspecified;Prot PER RICK AT DR'S OFFICE [place] TO DO LABS TODAY. Performed By: #### C MP, PTH, [id number], URIC #### [facility] [address] [phone] [place] Sodium [Moles/Vol] 139 mmol/L Normal 136-146 [facility] Comment on above: Order Comment: Reaso n for Exam Chronic kidney disease, stage 3a;Hematuria, unspecified;Prot PER RICK AT DR'S OFFICE [place] TO DO LABS TODAY. Performed By: #### C MP, PTH, [id number], URIC #### [facility] [address] [place] [address] [place] Urea nitrogen [Mass/Vol] 15 mg/dL Normal 9-23 [facility] Comment on above: Order Comment: Reaso n for Exam Chronic kidney disease, stage 3a;Hematuria, unspecified;Prot PER RICK AT DR'S OFFICE [place] TO DO LABS TODAY. Performed By: #### C MP, PTH, [id number], URIC #### [facility] [address] [phone] [place] Creatinine [Mass/volume] in UrineOrdered By: Teetee Rizvi on 07-04-2022 Creatinine (U) [Mass/Vol] 235.6 mg/dL [facility] Comment on above: No reference range e stablished Creatinine and Glomerular fi ltration rate.predicted panel (S/P/Bld)Ordered By: Teetee Rizvi on 07-04-2022 Creatinine [Mass/Vol] 0.76 mg/dL 0.44-1.03 [facility] Cryoglobulin with Quant Refl exon 07-04-2022 Cryoglobulin, Ql, Serum Normal None detected [facility] Comment on above: Order Comment: Reaso n for Exam Chronic kidney disease, stage 3a;Hematuria, unspecified;Prot Result Comment: None Detected at 72 hours This test was developed and its performance characteristics determined by [facility]. It has not been cleared or approved by the Food and Drug Administration. Performed at: [address] [id number] [employer]isher: Cody Williamson PhD, Phone: [phone] Performed By: #### C H50, C4, C3 #### [facility] , #### ESR, CBC #### [facility] [address] [place] [address] [place] Dipstick and Microscopicon 0 07-04-2022 Appearance (U) Clear Normal Clear [facility] Comment on above: Order Comment: Reaso n for Exam Chronic kidney disease, stage 3a;Hematuria, unspecified;Prot Name Collection Type:: Clean-Voided Midstream Performed By: #### C H50, C4, C3 #### [facility] , #### ESR, CBC #### [facility] [address] [place] [address] [place] Bacteria,Urine None Seen Normal None Seen [facility] Comment on above: Order Comment: Reaso n for Exam Chronic kidney disease, stage 3a;Hematuria, unspecified;Prot Name Collection Type:: Clean-Voided Midstream Performed By: #### C H50, C4, C3 #### [facility] , #### ESR, CBC #### [facility] [address] [place] [address] [place] Bilirubin,Urine Negative Normal Negative [facility] Comment on above: Order Comment: Reaso n for Exam Chronic kidney disease, stage 3a;Hematuria, unspecified;Prot Name Collection Type:: Clean-Voided Midstream Performed By: #### C H50, C4, C3 #### [facility] , #### ESR, CBC #### [facility] [address] [place] [address] [place] Color (U) Yellow Normal Yellow [facility] Comment on above: Order Comment: Reaso n for Exam Chronic kidney disease, stage 3a;Hematuria, unspecified;Prot Name Collection Type:: Clean-Voided Midstream Performed By: #### C H50, C4, C3 #### [facility] , #### ESR, CBC #### [facility] [address] [place] [address] Glucose Ql (U) Normal Normal Normal [facility] Comment on above: Order Comment: Reaso n for Exam Chronic kidney disease, stage 3a;Hematuria, unspecified;Prot Name Collection Type:: Clean-Voided Midstream Performed By: #### C H50, C4, C3 #### [facility] , #### ESR, CBC #### [address] Hyaline Casts,Urine 9-19 High 0-8 [facility] Comment on above: Order Comment: Reaso n for Exam Chronic kidney disease, stage 3a;Hematuria, unspecified;Prot Name Collection Type:: Clean-Voided Midstream Result Comment: PERF ORMED BY: [place] [address] PATHOLOGIST CLAIM EXAMINER GIFTY CANO M.D. Performed By: #### C H50, C4, C3 #### [facility] , #### ESR, CBC #### [facility] [address] [place] [address] Ketones Ql (U) Trace High Negative [facility] Comment on above: Order Comment: Reaso n for Exam Chronic kidney disease, stage 3a;Hematuria, unspecified;Prot Name Collection Type:: Clean-Voided Midstream Performed By: #### C H50, C4, C3 #### [facility] , #### ESR, CBC #### [address] Leukocyte esterase Test strip Ql (U) Negative Normal Negative [facility] Comment on above: Order Comment: Reaso n for Exam Chronic kidney disease, stage 3a;Hematuria, unspecified;Prot Name Collection Type:: Clean-Voided Midstream Performed By: #### C H50, C4, C3 #### [facility] , #### ESR, CBC #### [place] [address] [place] Nitrite,Urine Negative Normal Negative [facility] Comment on above: Order Comment: Reaso n for Exam Chronic kidney disease, stage 3a;Hematuria, unspecified;Prot Name Collection Type:: Clean-Voided Midstream Performed By: #### C H50, C4, C3 #### [facility] , #### ESR, CBC #### [address] Occult Blood,Urine Negative Normal Negative [facility] Comment on above: Order Comment: Reaso n for Exam Chronic kidney disease, stage 3a;Hematuria, unspecified;Prot Name Collection Type:: Clean-Voided Midstream Result Comment: PERF ORMED BY: [place] [address] PATHOLOGIST CLAIM EXAMINER GIFTY CANO M.D. Performed By: #### C H50, C4, C3 #### [facility] , #### ESR, CBC #### [address] pH (U) 6.5 [pH] Normal 5.0-9.0 [facility] Comment on above: Order Comment: Reaso n for Exam Chronic kidney disease, stage 3a;Hematuria, unspecified;Prot Name Collection Type:: Clean-Voided Midstream Performed By: #### C H50, C4, C3 #### [facility] , #### ESR, CBC #### [facility] [address] [place] [address] [place] Protein (U) [Mass/Vol] 100 mg/dL High Negative [facility] Comment on above: Order Comment: Reaso n for Exam Chronic kidney disease, stage 3a;Hematuria, unspecified;Prot Name Collection Type:: Clean-Voided Midstream Performed By: #### C H50, C4, C3 #### [facility] , #### ESR, CBC #### [facility] [address] [place] [address] RBC,Urine 5-9 High 0-4 [facility] Comment on above: Order Comment: Reaso n for Exam Chronic kidney disease, stage 3a;Hematuria, unspecified;Prot Name Collection Type:: Clean-Voided Midstream Performed By: #### C H50, C4, C3 #### [facility] , #### ESR, CBC #### [address] Renal Epithelial Cells,Urine None Seen Normal 0-1 [facility] Comment on above: Order Comment: Reaso n for Exam Chronic kidney disease, stage 3a;Hematuria, unspecified;Prot Name Collection Type:: Clean-Voided Midstream Performed By: #### C H50, C4, C3 #### [facility] , #### ESR, CBC #### [address] Specificy [place],Urine 1.021 Normal 1.001-1.030 [facility] Comment on above: Order Comment: Reaso n for Exam Chronic kidney disease, stage 3a;Hematuria, unspecified;Prot Name Collection Type:: Clean-Voided Midstream Performed By: #### C H50, C4, C3 #### [facility] , #### ESR, CBC #### [facility] [facility] [address] [place] [address] Squamous Epithelial Cell,Urine 1-2 Normal 0-2 [facility] Comment on above: Order Comment: Reaso n for Exam Chronic kidney disease, stage 3a;Hematuria, unspecified;Prot Name Collection Type:: Clean-Voided Midstream Performed By: #### C H50, C4, C3 #### [facility] , #### ESR, CBC #### [address] Urobilinogen,Urine Normal Normal Normal [facility] Comment on above: Order Comment: Reaso n for Exam Chronic kidney disease, stage 3a;Hematuria, unspecified;Prot Name Collection Type:: Clean-Voided Midstream Performed By: #### C H50, C4, C3 #### [facility] , #### ESR, CBC #### [facility] [address] [place] [address] WBC,Urine 1-2 Normal 0-4 [facility] Comment on above: Order Comment: Reaso n for Exam Chronic kidney disease, stage 3a;Hematuria, unspecified;Prot Name Collection Type:: Clean-Voided Midstream Performed By: #### C H50, C4, C3 #### [facility] , #### ESR, CBC #### [facility] [address] [place] [address] Erythrocyte distribution wid th Auto (RBC) [Ratio]Ordered By: Teetee Rizvi on 07-04-2022 Erythrocyte distribution width (RBC) [Ratio] 14.1 % 11.9-15.3 [facility] Estimated glomerular filtrat ion rate (GFR) non- AmericanOrdered By: Teetee Rizvi on 07-04-2022 GFR/1.73 sq M.predicted among non-blacks MDRD (S/P/Bld) [Vol rate/Area] > 60 mL/Min [facility] Globulin Calc (S) [Mass/Vol] Ordered By: Teetee Rizvi on 07-04-2022 Globulin (S) [Mass/Vol] 3.1 g/dL [facility] Hematocrit Auto (Bld) [Volum e fraction]Ordered By: Teetee Rizvi on 07-04-2022 Hematocrit (Bld) [Volume fraction] 38.3 % 34.0-46.4 [facility] Hemogram CBC Without Diffon 07-04-2022 Erythrocyte distribution width (RBC) [Ratio] 14.1 % Normal 11.9-15.3 [facility] Comment on above: Order Comment: Reaso n for Exam Chronic kidney disease, stage 3a;Hematuria, unspecified;Prot Performed By: #### C H50, C4, C3 #### [facility] , #### ESR, CBC #### [address] Hematocrit (Bld) [Volume fraction] 38.3 % Normal 34.0-46.4 [facility] Comment on above: Order Comment: Reaso n for Exam Chronic kidney disease, stage 3a;Hematuria, unspecified;Prot Performed By: #### C H50, C4, C3 #### [facility] , #### ESR, CBC #### [address] Hemoglobin (Bld) [Mass/Vol] 12.6 g/dL Normal 11.8-15.4 [facility] Comment on above: Order Comment: Reaso n for Exam Chronic kidney disease, stage 3a;Hematuria, unspecified;Prot Performed By: #### C H50, C4, C3 #### [facility] , #### ESR, CBC #### [address] MCH (RBC) [Entitic mass] 29.1 pg Normal 24.7-34.3 [facility] Comment on above: Order Comment: Reaso n for Exam Chronic kidney disease, stage 3a;Hematuria, unspecified;Prot Performed By: #### C H50, C4, C3 #### [facility] , #### ESR, CBC #### [address] MCV (RBC) [Entitic vol] 88.7 fL Normal 80-100 F [facility] Comment on above: Order Comment: Reaso n for Exam Chronic kidney disease, stage 3a;Hematuria, unspecified;Prot Performed By: #### C H50, C4, C3 #### [facility] , #### ESR, CBC #### [address] Mean Corpuscular HGB Conc 32.8 g/dL Normal 32.0-35.0 [facility] Comment on above: Order Comment: Reaso n for Exam Chronic kidney disease, stage 3a;Hematuria, unspecified;Prot Performed By: #### C H50, C4, C3 #### [facility] , #### ESR, CBC #### [address] Platelet mean volume (Bld) [Entitic vol] 8.0 fL Normal 6.3-10.7 [facility] Comment on above: Order Comment: Reaso n for Exam Chronic kidney disease, stage 3a;Hematuria, unspecified;Prot Result Comment: PERF ORMED BY: [place] [address] PATHOLOGIST CLAIM EXAMINER GIFTY CANO M.D. Performed By: #### C H50, C4, C3 #### [facility] , #### ESR, CBC #### [address] Platelets (Bld) [#/Vol] 269 10*3/uL Normal 150-450 [facility] Comment on above: Order Comment: Reaso n for Exam Chronic kidney disease, stage 3a;Hematuria, unspecified;Prot Performed By: #### C H50, C4, C3 #### [facility] , #### ESR, CBC #### [address] RBC (Bld) [#/Vol] 4.32 10*6/uL Normal 3.60-5.00 [facility] Comment on above: Order Comment: Reaso n for Exam Chronic kidney disease, stage 3a;Hematuria, unspecified;Prot Performed By: #### C H50, C4, C3 #### [facility] , #### ESR, CBC #### [facility] [address] [place] [address] WBC (Bld) [#/Vol] 6.9 10*3/uL Normal 3.8-11.6 [facility] Comment on above: Order Comment: Reaso n for Exam Chronic kidney disease, stage 3a;Hematuria, unspecified;Prot Performed By: #### C H50, C4, C3 #### [facility] , #### ESR, CBC #### [facility] [address] [place] [address] Hepatitis B Surface Antigeno n 07-04-2022 HBsAg Screen Negative Normal Negative [facility] Comment on above: Order Comment: Reaso n for Exam Chronic kidney disease, stage 3a;Hematuria, unspecified;Prot Result Comment: Perf ormed at: CB - [facility] [place] [address] [employer] Polisher: Cody Williamson PhD, Phone: [phone] PERFORMED BY: [place] [address] PATHOLOGIST CLAIM EXAMINER GIFTY CANO M.D. Performed By: #### C H50, C4, C3 #### [facility] , #### ESR, CBC #### [facility] [address] [place] [address] Hepatitis B virus surface Ag [Presence] in Serum or Plasma by ImmunoassayOrdered By: Teetee Rizvi on 07-04-2022 HBV surface Ag IA Ql Negative Negative [facility] Comment on above: Performed at: - [facility] [place] [address] [employer]isher: Cody Williamson PhD, Phone: [phone] Ketones Auto test strip (U) [Mass/Vol]Ordered By: Teetee Rizvi on 07-04-2022 Ketones (U) [Mass/Vol] Trace Negative [facility] Raffaele 07-04-2022 L - -------- Specimen: [id number] Received: 07/04/22 Status: NASIR Olguin Num: [id number] Spec Type: Surgical Subm Dr: Luis Figueredo DO Tissues: A Gross Only (RT RAND KID BX) Procedures: Level 1 Gross -------- Age/ Patient Sex Location Account Attending Physician -------- Uzma Alfred 66/F [place] [id number] Teetee Rizvi MD -------- SPEC NUM: [id number] RECD: 07/04/22 STATUS: NASIR BLACK NUM: [id number] MARIBELL: 07/04/22 [facility] DR: Luis Figueredo DO ENTERED: 07/04/22 [facility] DR: Teetee Rizvi MD SPEC TYPE: Surgical [...] Fibrosis: None Arteriolar Hyalinosis: None Please see [employer] report ([id number]) for further details. -------- Specimen: [id number] Received: 07/04/22 Status: NASIR Olguin Num: [id number] Spec Type: Surgical Subm Dr: Luis Figueredo DO Tissues: A Gross Only (RT RAND KID BX) Procedures: Level 1 Gross -------- Patient: Uzma Alfred [id number] (Continued) -------- Specimen: [id number] Received: 07/04/22 (Continued) Signed (signature on file) June Arteaga MD 07/06/22 1304 -------- Specimen: [id number] Received: 07/04/22 Status: NASIR Olguin Num: [id number] Spec Type: Surgical Subm Dr: Luis Figueredo DO Tissues: A Gross Only (RT RAND ROMEL BX) Procedures: Level 1 Gross -------- Patient: Uzma Alfred Faizan [id number] (Continued) -------- Specimen: [id number] Received: 07/04/22 (Continued) Clinical Information Proteinuria, hematuria, CK D stage III, 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 The tissues are placed in Steve's transport medium and formalin and sent to [facility] for further renal studies. Microscopic Description The entire specimen is forwarded to [facility]. Their laboratory has performed the microscopic examination inclusive of special stain and additional studies as diagnostically necessary. The above reported pathologic diagnoses are those of the health and wellness sales consultant. See their attached consultative report for a complete description ([employer] #[id number]). CPT Codes 40977 -------- -------- Specimen: [id number] Received: 07/04/22 Status: NASIR Olguin Num: [id number] Spec Type: Surgical Subm Dr: Luis Figueredo DO Tissues: A Gross Only (RT RAND KID BX) Procedures: Level 1 Gross -------- Patient: Uzma Alfred [id number] (Continued) -------- Signed (signature on file) June Arteaga MD 07/06/22 1304 Normal [facility] - CoagulationOrde red By: Teetee Rizvi on 07-04-2022 PT Coag (PPP) [Time] 10.1 s 9.0-12.9 [facility] - UrinalysisOrder ed By: Teetee Rizvi on 07-04-2022 Hyaline casts LM Ql (Urine sed) 9-19 [LPF] 0-8 [facility] MCH Auto (RBC) [Entitic mass ]Ordered By: Teetee Rizvi on 07-04-2022 MCH (RBC) [Entitic mass] 29.1 pg 24.7-34.3 [facility] MCHC Auto (RBC) [Mass/Vol]Or dered By: Teetee Rizvi on 07-04-2022 MCHC (RBC) [Mass/Vol] 32.8 g/dL 32.0-35.[address] [facility] MCV Auto (RBC) [Entitic vol] Ordered By: Teetee Rzivi on 07-04-2022 MCV (RBC) [Entitic vol] 88.7 fL 80-100 F [facility] Nitrite Test strip Ql (U)Ord ered By: Teetee Rizvi on 07-04-2022 Nitrite Ql (U) Negative Negative [facility] No Panel InformationOrdered By: Teetee Rizvi on 07-04-2022 25-Hydroxy Vitamin D Total 42.1 ng/mL 30-100 [facility] Comment on above: VITAMIN D STATUS 25( OH)VITAMIN D RANGE (ng/mL) Deficient <20 Insufficient 20 to <30 Sufficient 30 to 100 Reference: Vero MF,Nara NC, Darius RHODES, et al. Evaluation,treatment, and prevention of vitamin D deficiency; an Endocrine Society clinical practice guideline. JCEM. 2010; 96(7):1911-30. Estimated GFR () > 60 mL/Min [facility] Comment on above: GFR estimated refere nce range: According to KDOQI guidelines, <60 ml/min/1.73m2 is sufficient to diagnose a patient with chronic kidney disease. Pharmacy Creatinine Clearance (Chem 76.30 [facility] Parathyroid Hormone Intacton 07-04-2022 Parathyroid Hormone Intact 80.6 pg/mL Normal 12-88 [facility] Comment on above: Order Comment: Name Collection Type:: Clean-Voided Midstream Result Comment: PERF ORMED BY: [place] [address] PATHOLOGIST CLAIM EXAMINER GIFTY CANO M.D. Performed By: #### L UPANTCOAG #### [facility] , #### ADDONUAPLUS #### [address] Partial Thromboplastin Timeo n 07-04-2022 aPTT Coag (Bld) [Time] 28.8 s Normal 25.1-36.5 [facility] Comment on above: Order Comment: Reaso n for Exam Chronic kidney disease, stage 3a;Hematuria, unspecified;Prot STAT COAGS FOR CT BX Result Comment: PERF ORMED BY: [place] [address] PATHOLOGIST CLAIM EXAMINER GIFTY CANO M.D. Performed By: #### C H50, C4, C3 #### [facility] , #### ESR, CBC #### [facility] [address] [place], [place] [id number] [facility] Platelet mean volume Auto (B ld) [Entitic vol]Ordered By: Teetee Rizvi on 07-04-2022 Platelet mean volume (Bld) [Entitic vol] 8.0 fL 6.3-10.7 [facility] Platelet poor plasma interna tional normalized ratio (INR) by coagulation assay (relatOrdered By: Teetee Rizvi on 07-04-2022 INR Coag (PPP) [Relative time] 0.9 {INR} [facility] Comment on above: INR Therapeutic Rang e [...] 07-04-2022 Platelets (Bld) [#/Vol] 269 10*3/uL 150-450 [facility] Protein Auto test strip (U) [Mass/Vol]Ordered By: Teetee Rizvi on 07-04-2022 Protein (U) [Mass/Vol] 100 mg/dL Negative [facility] Protein Creat Ratio Ur Rando mon 07-04-2022 Creatinine, Urine (Random) 235.6 mg/dL Normal [facility] Comment on above: Order Comment: Name Collection Type:: Clean-Voided Midstream Result Comment: No r eference range established Performed By: #### L UPANTCOAG #### [facility] , #### ADDONUAPLUS #### [facility] [address] [place] [address] [place] Protein (U) [Mass/Vol] 61 mg/dL High 0-9 [facility] Comment on above: Order Comment: Name Collection Type:: Clean-Voided Midstream Performed By: #### L UPANTCOAG #### [facility] , #### ADDONUAPLUS #### [facility] [address] [place] [address] Urine Protein/Creatinine Ratio 259 mg/g{Cre} High 0-200 [facility] Comment on above: Order Comment: Name Collection Type:: Clean-Voided Midstream Result Comment: PERF ORMED BY: [place] [address] PATHOLOGIST CLAIM EXAMINER GIFTY CANO M.D. Performed By: #### L UPANTCOAG #### [facility] , #### ADDONUAPLUS #### [facility] [address] [place] [address] [place] Protein [Mass/volume] in Ser um or PlasmaOrdered By: Teetee Rizvi on 07-04-2022 Protein [Mass/Vol] 6.8 g/dL 6.1-7.9 [facility] Protein [Mass/volume] in Uri neOrdered By: Teetee Rizvi on 07-04-2022 Protein (U) [Mass/Vol] 61 mg/dL 0-9 [facility] Proteinase 3 (PR3) Antibodie son 07-04-2022 Proteinase 3 (PR3) Antibodies <0.2 Normal 0.0-0.9 [facility] Comment on above: Order Comment: Reaso n for Exam Chronic kidney disease, stage 3a;Hematuria, unspecified;Prot Result Comment: Perf ormed at: BN - [facility] [address] [id number] [employer]: Aroldo Son MD, Phone: [phone] PERFORMED BY: [place] [address] PATHOLOGIST CLAIM EXAMINER GIFTY CANO M.D. Performed By: #### C H50, C4, C3 #### [facility] , #### ESR, CBC #### [facility] [address] [place] [address] [place] Prothrombin Time INRon 07-04 INR Coag (PPP) [Relative time] 0.9 {INR} Normal [facility] Comment on above: Order Comment: Reaso [...] #### [facility] , #### ESR, CBC #### [facility] [address] [place] [id number] [place] PT Coag (PPP) [Time] 10.1 s Normal 9.0-12.9 [facility] Comment on above: Order Comment: Reaso n for Exam Chronic kidney disease, stage 3a;Hematuria, unspecified;Prot STAT COAGS FOR CT BX Performed By: #### C H50, C4, C3 #### [facility] , #### ESR, CBC #### [facility] [address] RBC Auto (Bld) [#/Vol]Ordere d By: Teetee Rizvi on 07-04-2022 RBC (Bld) [#/Vol] 4.32 10*6/uL 3.60-5.00 [facility] Serum or plasma alanine márquez otransferase measurement without P-5'-P (enzymatic activiOrdered By: Teetee Rizvi on 07-04-2022 ALT No additional P-5'-P [Catalytic activity/Vol] 20 U/L 10-60 [facility] Serum or plasma albumin/glob ulin mass ratioOrdered By: Teteee Rizvi on 07-04-2022 Albumin/Globulin [Mass ratio] 1.2 {ratio} [facility] Serum or plasma alkaline adela sphatase measurement (enzymatic activity/volume)Ordered By: Teetee Rizvi on 07-04-2022 ALP [Catalytic activity/Vol] 61 U/L 32-92 [facility] Serum or plasma anion gap de terminationOrdered By: Teetee Rizvi on 07-04-2022 Anion gap [Moles/Vol] 13.7 mmol/L 6.0-15.0 [facility] Serum or plasma aspartate am inotransferase measurement (enzymatic activity/volume)Ordered By: Teetee Rizvi on 07-04-2022 AST [Catalytic activity/Vol] 22 U/L 10-42 [facility] Serum or plasma calcium kiana urement (mass/volume)Ordered By: Teetee Rizvi on 07-04-2022 Calcium [Mass/Vol] 8.9 mg/dL 8.2-10.2 [facility] Serum or plasma chloride melvin surement (moles/volume)Ordered By: Teetee Rizvi on 07-04-2022 Chloride [Moles/Vol] 106 mmol/L 95-114 [facility] Serum or plasma complement C 3 measurement (mass/volume)Ordered By: Teetee Rizvi on 07-04-2022 Complement C3 [Mass/Vol] 144 mg/dL 82-167 [facility] Comment on above: Performed at: [address] [id number] [employer]: Cody Williamson PhD, Phone: [phone] Serum or plasma complement C 4 measurement (mass/volume)Ordered By: Teetee Rizvi on 07-04-2022 Complement C4 [Mass/Vol] 22 mg/dL 12-38 [facility] Serum or plasma free cefurox greg measurement (mass/volume)Ordered By: Teetee Rizvi on 07-04-2022 Cefuroxime free [Mass/Vol] Negative Negative [facility] Comment on above: Performed at: [facility] [address] [id number] [employer]isher: Cody Williamson PhD, Phone: [phone] Serum or plasma glucose kiana urement (mass/volume)Ordered By: Teetee Rizvi on 07-04-2022 Glucose [Mass/Vol] 119 mg/dL 70-100 [facility] Comment on above: ADA recommended refe rence range Random Glucose Reference Range is dependent on time and content of last meal. Glucose of more than 200 mg/dL in a nonstressed, ambulatory subject supports the diagnosis of Diabetes Mellitus. Serum or plasma intact parat hyroid hormone measurement (mass/volume)Ordered By: Teetee Rizvi on 07-04-2022 Parathyrin.intact [Mass/Vol] 80.6 pg/mL 12-88 [facility] Serum or plasma potassium me asurement (moles/volume)Ordered By: Teetee Rizvi on 07-04-2022 Potassium [Moles/Vol] 3.8 mmol/L 3.5-5.1 [facility] Serum or plasma sodium measu rement (moles/volume)Ordered By: Teetee Rizvi on 07-04-2022 Sodium [Moles/Vol] 139 mmol/L 136-146 [facility] Serum or plasma total biliru bin measurement (mass/volume)Ordered By: Teetee Rizvi on 07-04-2022 Bilirubin [Mass/Vol] 1.6 mg/dL 0.3-1.2 [facility] Comment on above: Samples from patient s who have taken Naproxen have shown spurious elevation in Total Bilirubin levels. A metabolite of Naproxen, O-desmethylnaproxen, has been shown to interfere with the Jendrorlinik-Grof method for measuring Total Bilirubin. Serum or plasma total carbon dioxide measurement (moles/volume)Ordered By: Teetee Rizvi on 07-04-2022 CO2 [Moles/Vol] 23.1 mmol/L 22.0-30.0 [facility] Serum or plasma urea nitroge n measurement (mass/volume)Ordered By: Teetee Rizvi on 07-04-2022 Urea nitrogen [Mass/Vol] 15 mg/dL 9- [facility] Serum or plasma uric acid me asurement (mass/volume)Ordered By: Teetee Rizvi on 07-04-2022 Urate [Mass/Vol] 5.1 mg/dL 2.6-7.2 [facility] Specific gravity Auto test s trip (U) [Rel density]Ordered By: Teetee Rizvi on 07-04-2022 Specific gravity (U) [Rel density] 1.021 1.001-1.030 [facility] Squamous epithelial cells de tection in urine sediment by light microscopyOrdered By: Teetee Rizvi on 07-04-2022 Epithelial cells.squamous LM Ql (Urine sed) 1-2 [HPF] 0-2 [facility] Uric Acidon 07-04-2022 Urate [Mass/Vol] 5.1 mg/dL Normal 2.6-7.2 [facility] Comment on above: Order Comment: Reaso n for Exam Chronic kidney disease, stage 3a;Hematuria, unspecified;Prot PER RICK AT 'S OFFICE OK TO DO LABS TODAY. Performed By: #### C MP, PTH, [id number], URIC #### [address] Urine bacteria detection by automated methodOrdered By: Teetee Rizvi on 07-04-2022 Bacteria Auto Ql (U) None seen None Seen [facility] Urine clarity by refractomet ry automatedOrdered By: Teetee Rizvi on 07-04-2022 Clarity Refractometry automated (U) Clear Clear [facility] Urine glucose measurement by automated test strip (mass/volume)Ordered By: Teetee Rizvi on 07-04-2022 Glucose Auto test strip (U) [Mass/Vol] Normal mg/dL Normal [facility] Urine hemoglobin detection b y automated test stripOrdered By: Teetee Rizvi on 07-04-2022 Hemoglobin Auto test strip Ql (U) Negative Negative [facility] Urine leukocyte esterase det ection by automated test stripOrdered By: Teetee Rizvi on 07-04-2022 Leukocyte esterase Auto test strip Ql (U) Negative Negative [facility] Urine protein/creatinine rat ioOrdered By: Teetee Rizvi on 07-04-2022 Protein/Creatinine (U) [Ratio] 259 mg/g{Cre} 0-200 [facility] Urine sediment renal epithel ial cell count by microscopy (number/high power field)Ordered By: Teetee Rizvi on 07-04-2022 Epithelial cells.renal LM.HPF (Urine sed) [#/Area] None seen [HPF] 0-1 [facility] Urobilinogen Auto test strip (U) [Mass/Vol]Ordered By: Teetee Rizvi on 07-04-2022 Urobilinogen (U) [Mass/Vol] Normal mg/dL Normal [facility] Vitamin D 25 Hydroxy Totalon 07-04-2022 Vitamin D 25 Hydroxy Total 42.1 ng/mL Normal 30-100 [facility] Comment on above: Order Comment: Name [...] UPANTCOAG #### [facility] , #### ADDONUAPLUS #### [facility] [address] WBC Auto (Bld) [#/Vol]Ordere d By: Teetee Rizvi on 07-04-2022 WBC (Bld) [#/Vol] 6.9 10*3/uL 3.8-11.6 [facility] pH Auto test strip (U)Ordere d By: Teetee Rizvi on 07-04-2022 pH (U) 6.5 [pH] 5.0-9.0 [facility] ANTICARDIOLIPIN AB (AKASH) IGA /IGG/IGMon 07-03-2022 Anticardiolipin Ab,IgA,Qn <9 Normal 0-11 [facility] Comment on above: Result Comment: Nega tive: <12 Indeterminate: 12 - 20 Low-Med Positive: >20 - 80 High Positive: >80 Performed By: #### A BHAVESH #### [facility] [address] [place] [address] [address] Myrna Antony Anticardiolipin Ab,IgG,Qn <9 Normal 0-14 [facility] Comment on above: Result Comment: Nega tive: <15 Indeterminate: 15 - 20 Low-Med Positive: >20 - 80 High Positive: >80 Performed By: #### A BHAVESH #### [facility] [address] [place] [address] [address] Myrna Antony Anticardiolipin Ab,IgM,Qn 44 MPL U/mL Critically high 0-12 [facility] Comment on above: Result Comment: Nega tive: <13 Indeterminate: 13 - 20 Low-Med Positive: >20 - 80 High Positive: >80 Performed By: #### A CAQUAN #### [facility] [address] [address] [address] Myrna Antony CRPon 07-02-2022 CRP [Mass/Vol] mg/L Normal <=1.0 [facility] Comment on above: Performed By: #### C RP #### [facility] [address] [place] [address] [address] Myrna Antony MG MAMM SCREEN 3D YAYO CADon 07-02-2022 MG MAMM SCREEN 3D YAYO CAD Patient: UZMA ALFRED Exam Date: 07/02/2022 : 1955 Gender:F Ordering : DR ERROL CORBIN M.D. Admission #: [id number] Family : DR FLORINDA FLOWERS M.D. Order #: [id number] CLICK HERE TO VIEW EXAM RADIOLOGY REPORT [...] uterine cancer at age 63. LOCATION: [facility] BREAST COMPOSITION: Scattered areas fibroglandular density. FINDINGS: [...] MD on 07/02/2022 at 11:05 Normal [facility] SED RATE WESTERGRENon 2021 SED RATE 37 mm/hr Critically high <=[address] [facility] Comment on above: Performed By: #### S EDR #### [facility] [address] [place] [address] Dr. Myrna Antony Automated erythrocytes count in urine sediment (number/area)Ordered By: Ryan Ortiz on 03-19-2022 RBC Auto (Urine sed) [#/Area] 20-49 [HPF] [facility] Automated leukocytes count i n urine sediment (number/area)Ordered By: Ryan Ortiz on 03-19-2022 WBC Auto (Urine sed) [#/Area] 3-4 [HPF] [facility] Automated urine hyaline cast s count (number/volume)Ordered By: Ryan Adkinsrow on 03-19-2022 Hyaline casts Auto (U) [#/Vol] None seen [LPF] [facility] Bilirubin Test strip Ql (U)O rdered By: Ryan Adkinsrow on 03-19-2022 Bilirubin Ql (U) Negative Negative [facility] Blood Urea Nitrogenon 2021 Urea nitrogen [Mass/Vol] 28 mg/dL High 9-23 [facility] Comment on above: Performed By: #### C H50, C4, C3 #### [facility] , #### ESR, CBC #### [facility] [address] [place] [address] C-Reactive Proteinon 022 C-Reactive Protein 0.9 mg/dL Normal 0.0-1.0 [facility] Comment on above: Result Comment: PERF ORMED BY: [place] [address] PATHOLOGIST CLAIM EXAMINER GIFTY CANO M.D. Performed By: #### C H50, C4, C3 #### [facility] , #### ESR, CBC #### [facility] [address] [place] [address] [place] Casts typing in urine sedime nt by light microscopyOrdered By: Ryanluis miguel Ortiz on 03-19-2022 Casts LM Nom (Urine sed) None seen [LPF] None Seen [facility] Color Auto (U)Ordered By: Rowdy Ortiz on 03-19-2022 Color (U) Dark yellow Yellow [facility] Creatinineon 03-19-2022 Creatinine [Mass/Vol] 1.02 mg/dL Normal 0.44-1.03 [facility] Comment on above: Performed By: #### C H50, C4, C3 #### [facility] , #### ESR, CBC #### [facility] [address] [place] [address] Estimated GFR ( Lexis > 60 Normal [facility] Comment on above: Result Comment: GFR estimated reference range: According to KDOQI guidelines, <60 ml/min/1.73m2 is sufficient to diagnose a patient with chronic kidney disease. Performed By: #### C H50, C4, C3 #### [facility] , #### ESR, CBC #### [facility] [address] [place] [address] Estimated GFR (Non- Am 54 Normal [facility] Comment on above: Performed By: #### C H50, C4, C3 #### [facility] , #### ESR, CBC #### [address] Creatinine and Glomerular fi ltration rate.predicted panel (S/P/Bld)Ordered By: Ryan Ortiz on 03-19-2022 Creatinine [Mass/Vol] 1.02 mg/dL 0.44-1.03 [facility] Dipstick and Microscopicon 0 03-19-2022 Appearance (U) Clear Normal Clear [facility] Comment on above: Order Comment: Name Collection Type:: Clean-Voided Midstream Performed By: #### C H50, C4, C3 #### [facility] , #### ESR, CBC #### [facility] [address] [place] [address] Bacteria,Urine None Seen Normal None Seen [facility] Comment on above: Order Comment: Name Collection Type:: Clean-Voided Midstream Performed By: #### C H50, C4, C3 #### [facility] , #### ESR, CBC #### [facility] [address] [place] [address] [place] Bilirubin,Urine Negative Normal Negative [facility] Comment on above: Order Comment: Name Collection Type:: Clean-Voided Midstream Performed By: #### C H50, C4, C3 #### [facility] , #### ESR, CBC #### [facility] [address] [place] [address] Color (U) Dark Yellow Critically abnormal Yellow [facility] Comment on above: Order Comment: Name Collection Type:: Clean-Voided Midstream Performed By: #### C H50, C4, C3 #### [facility] , #### ESR, CBC #### [address] Glucose Ql (U) Normal Normal Normal [facility] Comment on above: Order Comment: Name Collection Type:: Clean-Voided Midstream Performed By: #### C H50, C4, C3 #### [facility] , #### ESR, CBC #### [address] Hyaline Casts,Urine None Seen Normal 0-1 [facility] Comment on above: Order Comment: Name Collection Type:: Clean-Voided Midstream Performed By: #### C H50, C4, C3 #### [facility] , #### ESR, CBC #### [facility] [address] [place] [address] Ketones Ql (U) Trace High Negative [facility] Comment on above: Order Comment: Name Collection Type:: Clean-Voided Midstream Performed By: #### C H50, C4, C3 #### [facility] , #### ESR, CBC #### [facility] [address] [place] [address] Leukocyte esterase Test strip Ql (U) 1+ High Negative [facility] Comment on above: Order Comment: Name Collection Type:: Clean-Voided Midstream Performed By: #### C H50, C4, C3 #### [facility] , #### ESR, CBC #### [address] Mucus,Urine 2+ Critically abnormal [facility] Comment on above: Order Comment: Name Collection Type:: Clean-Voided Midstream Result Comment: PERF ORMED BY: [place] [address] PATHOLOGIST CLAIM EXAMINER GIFTY CANO M.D. Performed By: #### C H50, C4, C3 #### [facility] , #### ESR, CBC #### [address] Nitrite,Urine Negative Normal Negative [facility] Comment on above: Order Comment: Name Collection Type:: Clean-Voided Midstream Performed By: #### C H50, C4, C3 #### [facility] , #### ESR, CBC #### [address] Occult Blood,Urine Negative Normal Negative [facility] Comment on above: Order Comment: Name Collection Type:: Clean-Voided Midstream Performed By: #### C H50, C4, C3 #### [facility] , #### ESR, CBC #### [address] Other Casts,Urine None Seen Normal None Seen [facility] Comment on above: Order Comment: Name Collection Type:: Clean-Voided Midstream Performed By: #### C H50, C4, C3 #### [facility] , #### ESR, CBC #### [facility] [address] [place] [address] pH (U) 5.5 [pH] Normal 5.0-9.0 [facility] Comment on above: Order Comment: Name Collection Type:: Clean-Voided Midstream Performed By: #### C H50, C4, C3 #### [facility] , #### ESR, CBC #### [address] Protein (U) [Mass/Vol] 100 mg/dL High Negative [facility] Comment on above: Order Comment: Name Collection Type:: Clean-Voided Midstream Performed By: #### C H50, C4, C3 #### [facility] , #### ESR, CBC #### [facility] [address] [place] [address] RBC,Urine 20-49 High 0-4 [facility] Comment on above: Order Comment: Name Collection Type:: Clean-Voided Midstream Performed By: #### C H50, C4, C3 #### [facility] , #### ESR, CBC #### [address] Renal Epithelial Cells,Urine None Seen Normal 0-1 [facility] Comment on above: Order Comment: Name Collection Type:: Clean-Voided Midstream Performed By: #### C H50, C4, C3 #### [facility] , #### ESR, CBC #### [address] Specificy [place],Urine 1.026 Normal 1.001-1.030 [facility] Comment on above: Order Comment: Name Collection Type:: Clean-Voided Midstream Performed By: #### C H50, C4, C3 #### [facility] , #### ESR, CBC #### [facility] [address] [place] [address] Squamous Epithelial Cell,Urine 3-4 High 0-2 [facility] Comment on above: Order Comment: Name Collection Type:: Clean-Voided Midstream Performed By: #### C H50, C4, C3 #### [facility] , #### ESR, CBC #### [facility] [address] [place] [address] Urobilinogen,Urine Normal Normal Normal [facility] Comment on above: Order Comment: Name Collection Type:: Clean-Voided Midstream Performed By: #### C H50, C4, C3 #### [facility] , #### ESR, CBC #### [facility] [address] WBC,Urine 3-4 Normal 0-4 [facility] Comment on above: Order Comment: Name Collection Type:: Clean-Voided Midstream Performed By: #### C H50, C4, C3 #### [facility] , #### ESR, CBC #### [address] Erythrocyte Sedimentation Ra ramírez 03-19-2022 ESR (Bld) [Velocity] 29 mm/h Normal 0-29 [facility] Comment on above: Result Comment: PERF ORMED BY: [place] [address] PATHOLOGIST CLAIM EXAMINER GIFTY CANO M.D. Performed By: #### C H50, C4, C3 #### [facility] , #### ESR, CBC #### [address] Erythrocyte sedimentation ra te by Photometric methodOrdered By: Ryan Ortiz on 03-19-2022 ESR Photometric method (Bld) [Velocity] 29 mm/hr 0-29 [facility] Estimated glomerular filtrat ion rate (GFR) non- AmericanOrdered By: Ryan Ortiz on 03-19-2022 GFR/1.73 sq M.predicted among non-blacks MDRD (S/P/Bld) [Vol rate/Area] 54 mL/Min [facility] Ketones Auto test strip (U) [Mass/Vol]Ordered By: Ryan Ortiz on 03-19-2022 Ketones (U) [Mass/Vol] Trace Negative [facility] Mucus LM Ql (Urine sed)Order ed By: Ryan Ortiz on 03-19-2022 Mucus Ql (Urine sed) 2+ [LPF] [facility] Nitrite Test strip Ql (U)Ord ered By: Ryan Ortiz on 03-19-2022 Nitrite Ql (U) Negative Negative [facility] No Panel InformationOrdered By: Ryan Ortiz on 03-19-2022 Estimated GFR () > 60 mL/Min [facility] Comment on above: GFR estimated refere nce range: According to KDOQI guidelines, <60 ml/min/1.73m2 is sufficient to diagnose a patient with chronic kidney disease. Pharmacy Creatinine Clearance (Chem N/A [facility] Protein Auto test strip (U) [Mass/Vol]Ordered By: Ryan Ortiz on 03-19-2022 Protein (U) [Mass/Vol] 100 mg/dL Negative Fi [facility] Serum or plasma C reactive p rotein measurement (mass/volume)Ordered By: Ryan Ortiz on 03-19-2022 CRP [Mass/Vol] 0.9 mg/dL 0.0-1.0 [facility] Serum or plasma urea nitroge n measurement (mass/volume)Ordered By: Ryan Ortiz on 03-19-2022 Urea nitrogen [Mass/Vol] 28 mg/dL 9-23 [facility] Specific gravity Auto test s trip (U) [Rel density]Ordered By: Ryan Ortiz on 03-19-2022 Specific gravity (U) [Rel density] 1.026 1.001-1.030 [facility] Squamous epithelial cells de tection in urine sediment by light microscopyOrdered By: Ryan Ortiz on 03-19-2022 Epithelial cells.squamous LM Ql (Urine sed) 3-4 [HPF] [facility] Urine bacteria detection by automated methodOrdered By: Ryan Ortiz on 03-19-2022 Bacteria Auto Ql (U) None seen None Seen [facility] Urine clarity by refractomet ry automatedOrdered By: Ryan Ortiz on 03-19-2022 Clarity Refractometry automated (U) Clear Clear [facility] Urine glucose measurement by automated test strip (mass/volume)Ordered By: Ryan Ortiz on 03-19-2022 Glucose Auto test strip (U) [Mass/Vol] Normal mg/dL Normal [facility] Urine hemoglobin detection b y automated test stripOrdered By: Ryan Ortiz on 03-19-2022 Hemoglobin Auto test strip Ql (U) Negative Negative [facility] Urine leukocyte esterase det ection by automated test stripOrdered By: Ryan Ortiz on 03-19-2022 Leukocyte esterase Auto test strip Ql (U) 1+ Negative [facility] Urine sediment renal epithel ial cell count by microscopy (number/high power field)Ordered By: Ryan Ortiz on 03-19-2022 Epithelial cells.renal LM.HPF (Urine sed) [#/Area] None seen [HPF] [facility] Urobilinogen Auto test strip (U) [Mass/Vol]Ordered By: Ryan Ortiz on 03-19-2022 Urobilinogen (U) [Mass/Vol] Normal mg/dL Normal [facility] pH Auto test strip (U)Ordere d By: Ryan Ortiz on 03-19-2022 pH (U) 5.5 [pH] 5.0-9.0 [facility] CBC W Auto Differential pane l (Bld)on 02-15-2022 Basophils (Bld) [#/Vol] 0.04 10*3/uL Normal <0.11 [facility] Comment on above: Order Comment: Speci men Type: BLOOD SPECIMEN Ordering Facility: [facility] Address: [address] [place] [address] Performed By: #### 5 7021-8 #### [facility] CLIA [id number] [address] [place] [address]49 Basophils/100 WBC (Bld) 0.4 % Normal C [facility] Comment on above: Order Comment: Speci men Type: BLOOD SPECIMEN Ordering Facility: [facility] Address: [address] [place] [address] Performed By: #### 5 7021-8 #### [facility] CLIA [id number] [address] [place] [address] 92832 Differential cell count method Nom (Bld) Auto Normal [facility] Comment on above: Order Comment: Speci men Type: BLOOD SPECIMEN Ordering Facility: [facility] Address: [address] [place] [address] Performed By: #### 5 7021-8 #### [facility] CLIA [id number] [address] [place] [address]01 Eosinophils (Bld) [#/Vol] 0.14 10*3/uL Normal <0.46 [facility] Comment on above: Order Comment: Speci men Type: BLOOD SPECIMEN Ordering Facility: [facility] Address: [address] [place], [place] [address] Performed By: #### 5 7021-8 #### [facility] CLIA [id number] [address] [place] [address]62 Eosinophils/100 WBC (Bld) 1.4 % Normal [facility] Comment on above: Order Comment: Speci men Type: BLOOD SPECIMEN Ordering Facility: [facility] Address: [address] [place] [address] Performed By: #### 5 7021-8 #### [facility] CLIA [id number] [address] [place] [address]258 Erythrocyte distribution width (RBC) [Ratio] 14.4 % Normal 11.5-15.0 [facility] Comment on above: Order Comment: Speci men Type: BLOOD SPECIMEN Ordering Facility: [facility] Address: [address] [place], [place] [address] Performed By: #### 5 7021-8 #### [facility] CLIA [id number] [address] [place] [address]20[address] Hematocrit (Bld) [Volume fraction] 39.7 % Normal 36.0-46.0 [facility] Comment on above: Order Comment: Speci men Type: BLOOD SPECIMEN Ordering Facility: [facility] Address: [address] [place], [place] [address] Performed By: #### 5 7021-8 #### [facility] CLIA [id number] [address] [place] [address] 87800 Hemoglobin (Bld) [Mass/Vol] 12.7 g/dL Normal 11.5-15.5 [facility] Comment on above: Order Comment: Speci men Type: BLOOD SPECIMEN Ordering Facility: [facility] Address: [address] [place], [place] [address] Performed By: #### 5 7021-8 #### [facility] CLIA [id number] [address] [place] [address] IMMATURE GRAN % 0.3 % Normal [facility] Comment on above: Order Comment: Speci men Type: BLOOD SPECIMEN Ordering Facility: [facility] Address: [address] [place] [address] Performed By: #### 5 7021-8 #### [facility] CLIA [id number] [address] [place] [address]888 IMMATURE GRAN ABS 0.03 k/uL Normal <0.10 [facility] Comment on above: Order Comment: Speci men Type: BLOOD SPECIMEN Ordering Facility: [facility] Address: [address] [place] [address] Performed By: #### 5 7021-8 #### [facility] CLIA [id number] [address] [place] [address]5917 Lymphocytes (Bld) [#/Vol] 4.34 10*3/uL High 1.00-4.00 [facility] Comment on above: Order Comment: Speci men Type: BLOOD SPECIMEN Ordering Facility: [facility] Address: [address] [place] [address] Performed By: #### 5 7021-8 #### [facility] CLIA [id number] [address] [place] [address]37 Lymphocytes/100 WBC (Bld) 43.5 % Normal [facility] Comment on above: Order Comment: Speci men Type: BLOOD SPECIMEN Ordering Facility: [facility] Address: [address] [place] [address] Performed By: #### 5 7021-8 #### [facility] CLIA [id number] [address] [place] [address] 40573 MCH (RBC) [Entitic mass] 29.5 pg Normal 26.0-34.0 [facility] Comment on above: Order Comment: Speci men Type: BLOOD SPECIMEN Ordering Facility: [facility] Address: [address] [place] [address] Performed By: #### 5 7021-8 #### [facility] CLIA [id number] [address] [place] [address]656 MCHC (RBC) [Mass/Vol] 32.0 g/dL Normal 30.5-36.0 [facility] Comment on above: Order Comment: Speci men Type: BLOOD SPECIMEN Ordering Facility: [facility] Address: [address] [place] [address] Performed By: #### 5 7021-8 #### [facility] CLIA [id number] [address] [place] [address] 77666 MCV (RBC) [Entitic vol] 92.1 fL Normal 80.0-100.0 C [facility] Comment on above: Order Comment: Speci men Type: BLOOD SPECIMEN Ordering Facility: [facility] Address: [address] [place] [address] Performed By: #### 5 7021-8 #### [facility] CLIA [id number] [address] [place] [address] 80819 Monocytes (Bld) [#/Vol] 0.78 10*3/uL Normal <0.87 [facility] Comment on above: Order Comment: Speci men Type: BLOOD SPECIMEN Ordering Facility: [facility] Address: [address] [place] [address] Performed By: #### 5 7021-8 #### [facility] CLIA [id number] [address] [place] [address] 71131 Monocytes/100 WBC (Bld) 7.8 % Normal C [facility] Comment on above: Order Comment: Speci men Type: BLOOD SPECIMEN Ordering Facility: [facility] Address: [address] [place] [address] Performed By: #### 5 7021-8 #### [facility] CLIA [id number] [address] [place] [address] 89210 Neutrophils (Bld) [#/Vol] 4.64 10*3/uL Normal 1.45-7.50 [facility] Comment on above: Order Comment: Speci men Type: BLOOD SPECIMEN Ordering Facility: [facility] Address: [address] [place] [address] Performed By: #### 5 7021-8 #### [facility] CLIA [id number] [address] [place] [address] 90332 Neutrophils/100 WBC (Bld) 46.6 % Normal [facility] Comment on above: Order Comment: Speci men Type: BLOOD SPECIMEN Ordering Facility: [facility] Address: [address] [place] [address] Performed By: #### 5 7021-8 #### [facility] CLIA [id number] [address] [place] [address] 59767 Nucleated RBC (Bld) [#/Vol] 10*3/uL Normal <0.01 [facility] Comment on above: Order Comment: Speci men Type: BLOOD SPECIMEN Ordering Facility: [facility] Address: [address] [place] [address] Performed By: #### 5 7021-8 #### [facility] CLIA [id number] [address] [place] [address] 07396 Nucleated RBC/100 WBC (Bld) [Ratio] 0.0 /100 WBC Normal [facility] Comment on above: Order Comment: Speci men Type: BLOOD SPECIMEN Ordering Facility: [facility] Address: [address] [place], [place] [address] Performed By: #### 5 7021-8 #### [facility] CLIA [id number] [address] [place] [address] 74332 Platelet mean volume (Bld) [Entitic vol] 9.2 fL Normal 9.0-12.7 [facility] Comment on above: Order Comment: Speci men Type: BLOOD SPECIMEN Ordering Facility: [facility] Address: [address] [place], [place] [address] Performed By: #### 5 7021-8 #### [facility] CLIA [id number] [address] [place] [address] Platelets (Bld) [#/Vol] 301 10*3/uL Normal 150-400 [facility] Comment on above: Order Comment: Speci men Type: BLOOD SPECIMEN Ordering Facility: [facility] Address: [address] [place] [address] Performed By: #### 5 7021-8 #### [facility] CLIA [id number] [address] [place] [address] 00785 RBC (Bld) [#/Vol] 4.31 10*6/uL Normal 3.90-5.20 [facility] Comment on above: Order Comment: Speci men Type: BLOOD SPECIMEN Ordering Facility: [facility] Address: [address] [place] [address] Performed By: #### 5 7021-8 #### [facility] CLIA [id number] [address] [place] [address] 11469 WBC (Bld) [#/Vol] 9.97 10*3/uL Normal 3.70-11.00 [facility] Comment on above: Order Comment: Speci men Type: BLOOD SPECIMEN Ordering Facility: [facility] Address: [address] [place] [address] Performed By: #### 5 7021-8 #### [facility] IA [id number] [address] [place] [address] 37811 CNOVSPon 02-15-2022 CNOVSP Visit (SP) Office ([facility]) UZMA ALFRED ([id number]) 1955 F Date Time Provider Department 02/15/22 11:00 AM ERROL CORBIN During your visit today, we recorded the following information about you: Temperature Pulse Respiration Blood pressure 97.4 degrees 66/minute 16/minute 166/85 Weight Height 87.1 kg 1.702 m Errol Corbin MD 02/16/2022 11:02 AM Signed PATIENT [...] Normal RADIOLOGY/OTHER STUDIES: 06/28/2021 Bilateral screening mammogram ([facility]) No significant suspicious findings in the right breast or left breast. Routine mammogram in 12 months recommended. 02/28/2021 Bone density DEXA ([facility]) Osteoporosis ASSESSMENT/PLAN: 1. Malignant neoplasm of left breast in female, estrogen receptor positive (HCC) (more content not included)... Normal [facility] Comprehensive metabolic 2000 panelon 02-15-2022 Albumin [Mass/Vol] 4.5 g/dL Normal 3.9-4.9 [facility] Comment on above: Order Comment: Speci men Type: BLOOD SPECIMEN Ordering Facility: [facility] Address: [address] [address] Performed By: #### 2 4323-8 #### [facility] CLIA [id number] [address] [place] [address] 04065 ALP [Catalytic activity/Vol] 82 U/L Normal 34-123 [facility] Comment on above: Order Comment: Speci men Type: BLOOD SPECIMEN Ordering Facility: [facility] Address: [address] [place] [address] Performed By: #### 2 4323-8 #### [facility] CLIA [id number] [address] [place] [address] 12810 ALT [Catalytic activity/Vol] 29 U/L Normal 7-38 [facility] Comment on above: Order Comment: Speci men Type: BLOOD SPECIMEN Ordering Facility: [facility] Address: [address] [address] Performed By: #### 2 4323-8 #### [facility] CLIA [id number] [address] [place] [address]150 Anion gap [Moles/Vol] 9 mmol/L Normal 9-18 [facility] Comment on above: Order Comment: Speci men Type: BLOOD SPECIMEN Ordering Facility: [facility] Address: [facility] [place] [address] Performed By: #### 2 4323-8 #### [facility] CLIA [id number] [address] [place] [address]363 AST [Catalytic activity/Vol] 28 U/L Normal 13-35 [facility] Comment on above: Order Comment: Speci men Type: BLOOD SPECIMEN Ordering Facility: [facility] Address: [address] [place], [place] [address] Performed By: #### 2 4323-8 #### [facility] CLIA [id number] [address] [place] [address]1590 Bilirubin [Mass/Vol] 1.1 mg/dL Normal 0.2-1.3 [facility] Comment on above: Order Comment: Speci men Type: BLOOD SPECIMEN Ordering Facility: [facility] Address: [address] [place] [address] Performed By: #### 2 4323-8 #### [facility] CLIA [id number] [address] [place] [address] 24210 Calcium [Mass/Vol] 9.7 mg/dL Normal 8.5-10.2 [facility] Comment on above: Order Comment: Speci men Type: BLOOD SPECIMEN Ordering Facility: [facility] Address: [address] [place] [address] Performed By: #### 2 4323-8 #### [facility] CLIA [id number] [address] [place] [address] 15750 Chloride [Moles/Vol] 103 mmol/L Normal 97-105 [facility] Comment on above: Order Comment: Speci men Type: BLOOD SPECIMEN Ordering Facility: [facility] Address: [address] Performed By: #### 2 4323-8 #### [facility] CLIA [id number] [address] [place] [address] 59821 CO2 [Moles/Vol] 22 mmol/L Normal 22-30 [facility] Comment on above: Order Comment: Speci men Type: BLOOD SPECIMEN Ordering Facility: [facility] Address: [address] [place], [place] [address] Performed By: #### 2 4323-8 #### [facility] CLIA [id number] [address] [place] [address] Creatinine [Mass/Vol] 0.82 mg/dL Normal 0.58-0.96 [facility] Comment on above: Order Comment: Luz Marina peters Type: BLOOD SPECIMEN Ordering Facility: [facility] Address: [address] [place] [address] Performed By: #### 2 4323-8 #### [facility] CLIA [id number] [address] [place] [address]83 ESTIMATED GLOMERULAR FILTRATION RATE 79 mL/min/1.73m??? Normal >=60 [facility] Comment on above: Order Comment: Luz Marina peters Type: BLOOD SPECIMEN Ordering Facility: [facility] Address: [address] [place] [address] Result Comment: Lillie mated Glomerular Filtration Rate [...] GFR. Performed By: #### 2 4323-8 #### [facility] CLIA [id number] [address] [place] [address]81 Glucose [Mass/Vol] 128 mg/dL High 74-99 [facility] Comment on above: Order Comment: Luz Marina peters Type: BLOOD SPECIMEN Ordering Facility: [facility] Address: [address] [place] [address] Result Comment: The [place] [employer] (ADA) provides guidance for cutoff [...] Standards of Medical Care in Diabetes 2016, [place] [employer]. Diabetes Care. 2016.39(Suppl 1). Performed By: #### 2 4323-8 #### [facility] CLIA [id number] [address] [place] [address] Potassium [Moles/Vol] 3.9 mmol/L Normal 3.7-5.1 [facility] Comment on above: Order Comment: Speci men Type: BLOOD SPECIMEN Ordering Facility: [facility] Address: [address] [place] [address] Performed By: #### 2 4323-8 #### [facility] CLIA [id number] [address] [place] [address] Protein [Mass/Vol] 7.1 g/dL Normal 6.3-8.0 [facility] Comment on above: Order Comment: Speci men Type: BLOOD SPECIMEN Ordering Facility: [facility] Address: [address] [place] [address] Performed By: #### 2 4323-8 #### [facility] CLIA [id number] [address] [place] [address] Sodium [Moles/Vol] 134 mmol/L Low 136-144 [facility] Comment on above: Order Comment: Speci men Type: BLOOD SPECIMEN Ordering Facility: [facility] Address: [address] [address] Performed By: #### 2 4323-8 #### [facility] CLIA [id number] [address] [place] [address] Urea nitrogen [Mass/Vol] 23 mg/dL High 7-21 [facility] Comment on above: Order Comment: Speci men Type: BLOOD SPECIMEN Ordering Facility: [facility] Address: [address] [address] Performed By: #### 2 4323-8 #### [facility] CLIA [id number] [address] [place] [address] Estela 02[birth year]22 CNPN Telephone (TATOAS[place]) UZMA ALFRED ([id number]) 1955 F Date Time Provider Department 02/06/22 [...] Fully Assessed Reason for Visit: Lab Orders [4468] Primary Visit Diagnosis:Malignant neoplasm of upper-outer quadrant of left breast in female, estrogen receptor positive (HCC) [C50.412, Z17.0] Order(s):CBC + DIFF [SQCBCDIF] Order #: [id number] FUTURE COMP METABOLIC PANEL [SQCMP] Order #: [id number] FUTURE Prescriptions as of 02/07/2022 - rosuvastatin [...] Status:Closed by LILIA CASTRO on 02/07/22 Normal [facility] Q - PROTHROMBIN TIME WITH IN [place] 12-21-2021 INR Coag (PPP) [Relative time] 0.9 {INR} Normal [facility] Specialist Comment on above: Order Comment: [facility] performed at: [employer], [employer] [facility], [address] [facility], [address] [place] [address], [phone], Middle [employer] Technology Teacher: Mariano Paul MD [facility] Collection Date/Time: [facility] Results Received Date/Time: [facility] Reported Date/Time: FASTING: NO Result Comment: Refe rence Range 0.9-1.1 Moderate-intensity Warfarin Therapy 2.0-3.0 Higher-intensity Warfarin Therapy 3.0-4.0 Performed By: #### 7 63X, 26F, %SBNOCULI, 3020X #### [facility] Default [address] [place] [address] PT Coag (PPP) [Time] 9.3 s Normal 9.0-11.5 [facility] Comment on above: Order Comment: [facility] performed at: [employer], [facility], [address] [facility], [address] [place] [address], [phone], Middle [employer] Technology Teacher: Mariano Paul MD [facility] Collection Date/Time: [id number] [facility] Results Received Date/Time: [facility] Reported Date/Time: FASTING: NO Result Comment: For additional information, please refer to http://education.[employer]/faq/USD474 (This link is being provided for informational/ educational purposes only.) Performed By: #### 7 63X, 26F, %SBNOCULI, 3020X #### [facility] Default [address] [place] [address] Q - PTTon 12-21-2021 PARTIAL THROMBOPLASTIN TIME, ACTIVATED 27 sec Normal 23-32 [facility] Communication Manager Comment on above: Order Comment: [facility] performed at: [employer], [facility], [address] [place] [address], [address] [place] [address], [phone], [employer] Technology Teacher: Mariano Paul MD [facility] Collection Date/Time: [id number] [facility] Results Received Date/Time: [facility] Reported Date/Time: FASTING: NO Result Comment: This test has not been validated for monitoring unfractionated heparin therapy. For testing that is validated for this type of therapy, please refer to the Heparin Anti-Xa assay (test code 27611). For additional information, please refer to http://education.[employer]/faq/WLB030 (This link is being provided for informational/educational purposes only.) Performed By: #### 7 63X, 26F, %SBNOCULI, 3020X #### [facility] [address] [place] [address] Q - UR CULT REFLEXon 022 REFLEXIVE URINE CULTURE SEE NOTE Normal N [facility] Communication Manager Comment on above: Order Comment: [facility] performed at: [employer], [facility], [address] [place] [address], [address] [place] [address], [phone], [employer] Technology Teacher: Mariano Paul MD [facility] Collection Date/Time: [id number] [facility] Results Received Date/Time: [facility] Reported Date/Time: FASTING: NO Result Comment: NO C ULTURE INDICATED Performed By: #### 7 63X, 26F, %SBNOCULI, 3020X #### [facility] Default [address] [place] [address] Q - URINALYSIS,COMPLETE,WITH REFLEX TO CULTUREon 12-21-2021 Appearance (U) CLEAR Normal CLEAR [facility] Communication Manager Comment on above: Order Comment: [facility] performed at: [employer], [facility], [address] [place] [address], [address] [place] [address], [phone], [employer] Technology Teacher: Mariano Paul MD [facility] Collection Date/Time: [facility] Results Received Date/Time: [facility] Reported Date/Time: FASTING: NO Performed By: #### 7 63X, 26F, %SBNOCULI, 3020X #### [facility] Default [address] [place] [address] BACTERIA NONE SEEN Normal NONE SEEN [facility] Communication Manager Comment on above: Order Comment: [facility] performed at: [employer], [facility], [address] [facility], [address] [place] [address], [address] [place] [address], [employer] Technology Teacher: Mariano Paul MD [facility] Collection Date/Time: [facility] Results Received Date/Time: [facility] Reported Date/Time: FASTING: NO Performed By: #### 7 63X, 26F, %SBNOCULI, 3020X #### [facility] Default [address] [place] [address] Bilirubin Ql (U) Negative Normal NEGATIVE [facility] Communication Manager Comment on above: Order Comment: [facility] performed at: [facility], [address] [place] , [address] [place] [address], [address] [place] [address], [employer] Technology Teacher: Mariano Paul MD [facility] Collection Date/Time: [facility] Results Received Date/Time: [facility] Reported Date/Time: FASTING: NO Performed By: #### 7 63X, 26F, %SBNOCULI, 3020X #### [facility] Default [address] [place] [address] Color (U) DARK YELLOW Normal YELLOW [facility] Communication Manager Comment on above: Order Comment: [facility] performed at: [employer], [facility], [address] [place] , [address] [place] [address], [phone], Middle [employer] Technology Teacher: Mariano Paul MD [facility] Collection Date/Time: [facility] Results Received Date/Time: [facility] Reported Date/Time: FASTING: NO Performed By: #### 7 63X, 26F, %SBNOCULI, 3020X #### [facility] Default [address] [place] [address] Glucose Ql (U) Negative Normal NEGATIVE [facility] Communication Manager Comment on above: Order Comment: [facility] performed at: [employer], [facility], [address] [facility], [address] [place] [address], [address] [place] [address], [employer] Technology Teacher: Mariano Paul MD [facility] Collection Date/Time: [facility] Results Received Date/Time: [facility] Reported Date/Time: FASTING: NO Performed By: #### 7 63X, 26F, %SBNOCULI, 3020X #### [facility] Default [address] [place] [address] HYALINE CAST NONE SEEN Normal NONE SEEN [facility] Communication Manager Comment on above: Order Comment: [facility] performed at: [employer], [facility], [address] [facility], [address] [place] [address], [address] [place] [address], [employer] Technology Teacher: Mariano Paul MD [facility] Collection Date/Time: [facility] Results Received Date/Time: [facility] Reported Date/Time: FASTING: NO Performed By: #### 7 63X, 26F, %SBNOCULI, 3020X #### [facility] Default [address] [place] [address] Ketones Ql (U) TRACE Abnormal NEGATIVE [facility] Communication Manager Comment on above: Order Comment: [facility] performed at: [employer], [facility], [address] [facility], [address] [place] [address], [address] [place] [address], [employer] Technology Teacher: Mariano Paul MD [facility] Collection Date/Time: [facility] Results Received Date/Time: [facility] Reported Date/Time: FASTING: NO Performed By: #### 7 63X, 26F, %SBNOCULI, 3020X #### [facility] Default [address] [place] [address] Leukocyte esterase Test strip Ql (U) Negative Normal NEGATIVE [facility] Specialist Comment on above: Order Comment: [facility] performed at: [employer], [facility], [address] [facility], [address] [place] [address], [address] [place] [address], [employer] Technology Teacher: Mariano Paul MD [facility] Collection Date/Time: [facility] Results Received Date/Time: [facility] Reported Date/Time: FASTING: NO Performed By: #### 7 63X, 26F, %SBNOCULI, 3020X #### [facility] Default [address] [place] [address] Nitrite Ql (U) Negative Normal NEGATIVE [facility] Specialist Comment on above: Order Comment: [facility] performed at: [employer], [facility], [address] [place] [address], [address] [place] [address], [address] [place] [address], [employer] Technology Teacher: Mariano Paul MD [facility] Collection Date/Time: [facility] Results Received Date/Time: [facility] Reported Date/Time: FASTING: NO Performed By: #### 7 63X, 26F, %SBNOCULI, 3020X #### [facility] Default [address] [place] [address] OCCULT BLOOD Negative Normal NEGATIVE [facility] Communication Manager Comment on above: Order Comment: [facility] performed at: [employer], [facility], [address] [facility], [address] [place] [address], [address] [place] [address], [employer] Technology Teacher: Mariano Paul MD [facility] Collection Date/Time: [facility] Results Received Date/Time: [facility] Reported Date/Time: FASTING: NO Performed By: #### 7 63X, 26F, %SBNOCULI, 3020X #### [facility] Default [address] [place] [address] pH (U) [pH] Normal 5.0-8.0 [facility] Communication Manager Comment on above: Order Comment: [facility] performed at: [employer], [facility], [address] [place] [address], [address] [place] [address], [address] [place] [address], [employer] Technology Teacher: Mariano Paul MD [facility] Collection Date/Time: [facility] Results Received Date/Time: [facility] Reported Date/Time: FASTING: NO Performed By: #### 7 63X, 26F, %SBNOCULI, 3020X #### [facility] Default [address] [place] [address] Protein Ql (U) TRACE Abnormal NEGATIVE [facility] Specialist Comment on above: Order Comment: [facility] Testing performed at: [employer], [facility], [address] [place] [address], [address] [place] [address], [address] [place] [address], [employer] Technology Teacher: Mariano Paul MD [facility] Collection Date/Time: [facility] Results Received Date/Time: [facility] Reported Date/Time: FASTING: NO Performed By: #### 7 63X, 26F, %SBNOCULI, 3020X #### [facility] Default [address] [place] [address] RBC NONE SEEN Normal < OR = 2 [facility] Communication Manager Comment on above: Order Comment: [facility] performed at: [employer], [facility], [address] [place] [address], [address] [place] [address], [address] [place] [address], [employer] Technology Teacher: Mariano Paul MD [facility] Collection Date/Time: [facility] Results Received Date/Time: [facility] Reported Date/Time: FASTING: NO Performed By: #### 7 63X, 26F, %SBNOCULI, 3020X #### [facility] Default [address] [place] [address] Specific gravity (U) [Rel density] 1.029 Normal 1.001-1.035 [facility] Communication Manager Comment on above: Order Comment: [facility] Testing performed at: [employer], [facility], [address] [place] [address], [address] [place] [address], [address] [place] [address], [employer] Technology Teacher: Mariano Paul MD [facility] Collection Date/Time: [facility] Results Received Date/Time: [facility] Reported Date/Time: FASTING: NO Performed By: #### 7 63X, 26F, %SBNOCULI, 3020X #### [facility] Default [address] [place] [address] SQUAMOUS EPITHELIAL CELLS NONE SEEN Normal < OR = 5 [facility] Communication Manager Comment on above: Order Comment: [facility] Testing performed at: [facility], [address] [place] [address], [address] [place] [address], [address] [place] [address], [employer] Technology Teacher: Mariano Paul MD [facility] Collection Date/Time: [facility] Results Received Date/Time: [facility] Reported Date/Time: FASTING: NO Performed By: #### 7 63X, 26F, %SBNOCULI, 3020X #### [facility] Default [address] [place] [address] WBC NONE SEEN Normal < OR = 5 [facility] Communication Manager Comment on above: Order Comment: [facility] Testing performed at: [facility], [address] [place] [address], [address] [place] [address], [address] [place] [address], [employer] Technology Teacher: Mariano Paul MD [facility] Collection Date/Time: [facility] Results Received Date/Time: [facility] Reported Date/Time: FASTING: NO Performed By: #### 7 63X, 26F, %SBNOCULI, 3020X #### [facility] Default [address] [place] [address] Complete Blood Count with Au to Diffon 12-20-2021 Basophils (Bld) [#/Vol] 0.03 10*3/uL Normal 0.00-0.20 [facility] Communication Manager Comment on above: Performed By: #### C BCAD, CMP #### [facility] [address] [place], [place] [id number] Basophils/100 WBC (Bld) 0.3 % [facility] Comment on above: Performed By: #### C BCAD, CMP #### [facility] [address] [place], [place] [id number] Eosinophils (Bld) [#/Vol] 0.02 10*3/uL Normal 0.02-0.50 [facility] Specialist Comment on above: Performed By: #### C BCAD, CMP #### [facility] [address] [place], [place] [id number] Eosinophils/100 WBC (Bld) 0.2 % Normal [facility] Specialist Comment on above: Performed By: #### C BCAD, CMP #### [facility] [address] [place], [place] [id number] Erythrocyte distribution width (RBC) [Ratio] 14.3 % Normal 11.0-15.0 [facility] Specialist Comment on above: Performed By: #### C BCAD, CMP #### [facility] [address] [place], [place] [id number] Hematocrit (Bld) [Volume fraction] 46.9 % Normal 35.0-47.0 [facility] Specialist Comment on above: Performed By: #### C BCAD, CMP #### [facility] [address], [place] [id number] Hemoglobin (Bld) [Mass/Vol] 14.3 g/dL Normal 11.6-15.5 [facility] Specialist Comment on above: Performed By: #### C BCAD, CMP #### [facility] [address] [place], [place] [id number] Lymphocytes (Bld) [#/Vol] 2.2 10*3/uL Normal 0.9-3.9 [facility] Specialist Comment on above: Performed By: #### C BCAD, CMP #### [facility] [address] [place], [place] [id number] Lymphocytes/100 WBC (Bld) 19.7 % Normal [facility] Specialist Comment on above: Performed By: #### C BCAD, CMP #### [facility] [address] [place], [place] [id number] MCH (RBC) [Entitic mass] 30.0 pg Normal 27.0-33.0 [facility] Specialist Comment on above: Performed By: #### C BCAD, CMP #### [facility] [address], [place] [id number] MCHC (RBC) [Mass/Vol] 30.5 g/dL Low 32.0-36.0 [facility] Comment on above: Performed By: #### C BCAD, CMP #### [facility] [address] [place], [place] [id number] MCV (RBC) [Entitic vol] 98 fL Normal 80-100 [facility] Specialist Comment on above: Performed By: #### C BCAD, CMP #### [facility] [address], [place] [id number] Monocytes (Bld) [#/Vol] 0.5 10*3/uL Normal 0.2-0.9 [facility] Comment on above: Performed By: #### C BCAD, CMP #### [facility] [address], [place] [id number] Monocytes/100 WBC (Bld) 4.3 % Normal [facility] Specialist Comment on above: Performed By: #### C BCAD, CMP #### [facility] [address] [place], [place] [id number] Neutrophils (Bld) [#/Vol] 8.3 10*3/uL High 1.5-7.8 [facility] Specialist Comment on above: Performed By: #### C BCAD, CMP #### [facility] [address] [place], [place] [id number] Neutrophils/100 WBC (Bld) 75.2 % Normal [facility] Specialist Comment on above: Performed By: #### C BCAD, CMP #### [facility] [address] [place], [place] [id number] Platelet mean volume (Bld) [Entitic vol] 10.80 fL Normal 7.50-12.50 [facility] Specialist Comment on above: Performed By: #### C BCAD, CMP #### [facility] [address] [place], [place] [id number] Platelets (Bld) [#/Vol] 303 10*3/uL Normal 140-400 [facility] Comment on above: Performed By: #### C BCAD, CMP #### [facility] [address] [place], [place] [id number] RBC (Bld) [#/Vol] 4.77 10*6/uL Normal 3.90-5.20 [facility] Comment on above: Performed By: #### C BCAD, CMP #### [facility] [address] [place], [place] [id number] RDW-SD 52.3 fL High 37.0-50.0 [facility] Comment on above: Performed By: #### C BCAD, CMP #### [facility] [address] [place], [place] [id number] WBC (Bld) [#/Vol] 11.1 10*3/uL High 3.8-11.0 [facility] Comment on above: Performed By: #### C BCAD, CMP #### [facility] [address] [place], [place] [id number] Comprehensive Metabolic [facility] 12-20-2021 Albumin [Mass/Vol] 5.0 g/dL Normal 3.6-5.1 [facility] Comment on above: Performed By: #### C BCAD, CMP #### [facility] [address] [place], [place] [id number] Albumin/Globulin [Mass ratio] 1.9 {ratio} Normal 1.0-2.5 [facility] Comment on above: Performed By: #### C BCAD, CMP #### [facility] [address] [place], [place] [id number] ALP [Catalytic activity/Vol] 68 U/L Normal 35-119 [facility] Comment on above: Performed By: #### C BCAD, CMP #### [facility] [address] [place], [place] [id number] ALT [Catalytic activity/Vol] 112 U/L High 6-33 [facility] Specialist Comment on above: Result Comment: 10/04 Female reference range changed. Performed By: #### C BCAD, CMP #### [facility] [address] [place], [place] [id number] Anion gap [Moles/Vol] 21 mmol/L High 12-20 [facility] Comment on above: Result Comment: Effe ctive 11/09/2019 reference range changed. Performed By: #### C BCAD, CMP #### [facility] [address] [place], [place] [id number] AST [Catalytic activity/Vol] 84 U/L High 9-34 [facility] Comment on above: Performed By: #### C BCAD, CMP #### [facility] [address] [place], [place] [id number] Bilirubin [Mass/Vol] 1.12 mg/dL Normal 0.30-1.20 [facility] Comment on above: Performed By: #### C BCAD, CMP #### [facility] [address] [place], [place] [id number] BUN/CREA 30 Ratio High 6-22 [facility] Comment on above: Performed By: #### C BCAD, CMP #### [facility] [address] [place], [place] [id number] Calcium [Mass/Vol] 10.0 mg/dL Normal 8.6-10.2 [facility] Comment on above: Performed By: #### C BCAD, CMP #### [facility] [address] [place], [place] [id number] Chloride [Moles/Vol] 101 mmol/L Normal 98-107 [facility] Comment on above: Performed By: #### C BCAD, CMP #### [facility] [address] [place], [place] [id number] CO2 [Moles/Vol] 19 mmol/L Low 20-31 [facility] Comment on above: Performed By: #### C BCAD, CMP #### [facility] [address] [place], [place] [id number] Creatinine [Mass/Vol] 0.8 mg/dL Normal 0.6-1.4 [facility] Comment on above: Performed By: #### C BCAD, CMP #### [facility] [address] [place], [place] [id number] eGFRAA 86 mL/min/1.73m2 Normal >60 [facility] Communication Manager Comment on above: Performed By: #### C BCAD, CMP #### [facility] [address] [place], [place] [id number] eGFRNAA 71 mL/min/1.73m2 Normal >60 [facility] Specialist Comment on above: Performed By: #### C BCAD, CMP #### [facility] [address] [place], [place] [id number] Globulin (S) [Mass/Vol] 2.6 g/dL Normal 1.9-3.7 [facility] Specialist Comment on above: Performed By: #### C BCAD, CMP #### [facility] [address] [place], [place] [id number] Glucose [Mass/Vol] 154 mg/dL High 65-99 [facility] Communication Manager Comment on above: Result Comment: For FASTING Glucose --- ADA reference ranges: Normal 65-99 mg/dl Prediabetes 100-125 Diabetes >/= 126 Performed By: #### C BCAD, CMP #### [facility] [address] [place], [place] [id number] Potassium [Moles/Vol] 4.5 mmol/L Normal 3.5-5.5 [facility] Specialist Comment on above: Performed By: #### C BCAD, CMP #### [facility] [address] [place], [place] [id number] Protein [Mass/Vol] 7.6 g/dL Normal 6.1-8.1 [facility] Communication Manager Comment on above: Performed By: #### C BCAD, CMP #### [facility] [address] [place], [place] [id number] Sodium [Moles/Vol] 137 mmol/L Normal 135-146 [facility] Communication Manager Comment on above: Performed By: #### C BCAD, CMP #### [facility] [address] [place], [place] [id number] Urea nitrogen [Mass/Vol] 24 mg/dL Normal 7-25 [facility] Communication Manager Comment on above: Performed By: #### C BCAD, CMP #### [facility] [address] [place], [place] [id number] XR femur BIon 12-20-2021 XR femur BI [facility] [address] [place], [place] [id number] XRay Report Signed Patient: Uzma Alfred MR#: [id number] 6 : 1955 Acct:[id number] Age/Sex: 66 / F ADM Date: 12/20/21 Loc: X Room: Type: [facility] Attending Dr: Ryan Milton PA-C Ordering Provider: Ryan Milton PA-C Date of Service: 12/20/21 XR/XR femur BI: [id number] ([id number]) XR/XR tibia/fibula BI: Z01.818 Copies to: Ryan [...] Fernando Kirby M.D.12/20/2021 3:42 PM Dictation Location: [place] [address] Transcribed By: [facility] 12/20/21 1542 Dictated By: Fernando Kirby II, MD 12/20/21 1538 Signed By: 12/20/21 1542 Normal [facility] Antinuclear Antibodieson 12-18-2021 Antinuclear Abs, IFA Positive Critically abnormal . [facility] Comment on above: Result Comment: Nega tive <1:80 Borderline 1:80 Positive >1:80 Performed By: #### L UPANTCOAG #### [facility] , #### ADDONUAPLUS #### [facility] [address] Note 1 Normal . [facility] Comment on above: Result Comment: For more [...] titers Nucleosomes, Histones Drug-induced SLE Speckled Sm, GRAIN MERCHANDISING MANAGER, SCL-70, SLE,MCTD,PSS (diffuse form), SS-A/SS-B Sjogrens Nucleolar SCL-70, PM-1/SCL High titers Scleroderma, PM/DM Centromere Centromere PSS (limited form) w/Crest syndrome variable Nuclear Dot Sp100,[id number] Primary Biliary Cirrhosis Nuclear GP210, Primary Biliary Cirrhosis Membrane alan A,B,C Performed at: [facility] [place] [address] Jet Blade Polisher: Cody Williamson PhD, Phone: [phone] Performed By: #### L UPANTCOAG #### [facility] , #### ADDONUAPLUS #### [facility] [address] [place] [address] Speckled Pattern 1:160 High . [facility] Comment on above: Result Comment: Dens e Fine Speckled pattern is noted. This pattern suggests the presence of DFS70 antibody which has a low prevalence in systemic autoimmune rheumatic diseases. ICAP nomenclature: [id number],4,5,29 Performed By: #### L UPANTCOAG #### [facility] , #### ADDONUAPLUS #### [facility] [address] Aldolaseon 12-18-2021 Aldolase 7.7 U/L Normal 3.3-10.3 [facility] Comment on above: Result Comment: Perf ormed at: [facility] [place] [id number] [employer] Polisher: Cody Williamson PhD, Phone: [phone] PERFORMED BY: [place] [address] PATHOLOGIST CLAIM EXAMINER GIFTY CANO M.D. Performed By: #### A LDOLASE #### [facility] , Antithyroglobulin Abon 12-18 Antithyroglobulin Ab <1.0 Normal 0.0-0.9 [facility] Comment on above: Result Comment: Thyr oglobulin Antibody measured by [email or web address] Methodology Performed at: [place] [address] [employer] Bl[employer] Polisher: Cody Williamson PhD, Phone: [phone] Performed By: #### L UPANTCOAG #### [facility] , #### ADDONUAPLUS #### [place] [address] [place] C-Reactive Proteinon 022 C-Reactive Protein 0.5 mg/dL Normal 0.0-1.0 [facility] Comment on above: Performed By: #### L UPANTCOAG #### [facility] , #### ADDONUAPLUS #### [place] [address] [place] Chromatin Antibodyon 022 Chromatin Antibody <0.2 Normal 0.0-0.9 [facility] Comment on above: Result Comment: Perf ormed at: [place] [address] [employer]isher: Cody Williamson PhD, Phone: [phone] Performed By: #### L UPANTCOAG #### [facility] , #### ADDONUAPLUS #### [place] [address] [place] Complement C3on 12-18-2021 Complement C3 150 mg/dL Normal 82-167 [facility] Comment on above: Result Comment: Perf ormed at: [address], [place] [id number] [employer]isher: Cody Williamson PhD, Phone: [phone] Performed By: #### C H50, C4, C3 #### [facility] , #### ESR, CBC #### [facility] [address] [place] [address] Complement C4on 12-18-2021 Complement C4 20 mg/dL Normal 12-38 [facility] Comment on above: Performed By: #### C H50, C4, C3 #### [facility] , #### ESR, CBC #### [address] Complement Total (CH50)on Complement Total (CH50) >60 Normal >41 F [facility] Comment on above: Result Comment: Age Male [...] determine out of range values. Performed at: - [facility] [id number] [employer]isher: Cody Williamson PhD, Phone: [phone] PERFORMED BY: [place] [address] PATHOLOGIST CLAIM EXAMINER GIFTY CANO M.D. Performed By: #### C H50, C4, C3 #### [facility] , #### ESR, CBC #### [facility] [address] [place] [address] Complete Blood Count Auto Di ffon 12-18-2021 Basophils (Bld) [#/Vol] 0.1 10*3/uL Normal 0.0-0.2 [facility] Comment on above: Performed By: #### C H50, C4, C3 #### [facility] , #### ESR, CBC #### [address] Basophils/100 WBC (Bld) 0.4 % Normal . [facility] Comment on above: Performed By: #### C H50, C4, C3 #### [facility] , #### ESR, CBC #### [address] Eosinophils (Bld) [#/Vol] 0.0 10*3/uL Normal 0.0-0.45 [facility] Comment on above: Performed By: #### C H50, C4, C3 #### [facility] , #### ESR, CBC #### [address] Eosinophils/100 WBC (Bld) 0.4 % Normal . [facility] Comment on above: Performed By: #### C H50, C4, C3 #### [facility] , #### ESR, CBC #### [address] Erythrocyte distribution width (RBC) [Ratio] 13.9 % Normal 11.9-15.3 [facility] Comment on above: Performed By: #### C H50, C4, C3 #### [facility] , #### ESR, CBC #### [address] Hematocrit (Bld) [Volume fraction] 42.6 % Normal 34.0-46.4 [facility] Comment on above: Performed By: #### C H50, C4, C3 #### [facility] , #### ESR, CBC #### [address] Hemoglobin (Bld) [Mass/Vol] 14.3 g/dL Normal 11.8-15.4 [facility] Comment on above: Performed By: #### C H50, C4, C3 #### [facility] , #### ESR, CBC #### [address] Lymphocytes (Bld) [#/Vol] 1.5 10*3/uL Normal 1.00-4.8 [facility] Comment on above: Performed By: #### C H50, C4, C3 #### [facility] , #### ESR, CBC #### [address] Lymphocytes/100 WBC (Bld) 11.6 % Normal . [facility] Comment on above: Performed By: #### C H50, C4, C3 #### [facility] , #### ESR, CBC #### [address] MCH (RBC) [Entitic mass] 30.6 pg Normal 24.7-34.3 [facility] Comment on above: Performed By: #### C H50, C4, C3 #### [facility] , #### ESR, CBC #### [address] MCV (RBC) [Entitic vol] 90.9 fL Normal 80-100 F [facility] Comment on above: Performed By: #### C H50, C4, C3 #### [facility] , #### ESR, CBC #### [address] Mean Corpuscular HGB Conc 33.7 g/dL Normal 32.0-35.0 [facility] Comment on above: Performed By: #### C H50, C4, C3 #### [facility] , #### ESR, CBC #### [address] Monocytes (Bld) [#/Vol] 0.6 10*3/uL Normal 0.0-0.8 [facility] Comment on above: Performed By: #### C H50, C4, C3 #### [facility] , #### ESR, CBC #### [place] [address] [place] Monocytes/100 WBC (Bld) 4.9 % Normal . [facility] Comment on above: Performed By: #### C H50, C4, C3 #### [facility] , #### ESR, CBC #### [address] Neutrophils (Bld) [#/Vol] 10.9 10*3/uL High 1.8-7.7 [facility] Comment on above: Performed By: #### C H50, C4, C3 #### [facility] , #### ESR, CBC #### [address] Neutrophils/100 WBC (Bld) 82.7 % Normal . [facility] Comment on above: Performed By: #### C H50, C4, C3 #### [facility] , #### ESR, CBC #### [place] [address] [place] Nucleated RBC/100 WBC (Bld) [Ratio] 0.1 % Normal 0-0.5 [facility] Comment on above: Performed By: #### C H50, C4, C3 #### [facility] , #### ESR, CBC #### [place] [address] [place] Platelet mean volume (Bld) [Entitic vol] 8.7 fL Normal 6.3-10.7 [facility] Comment on above: Performed By: #### C H50, C4, C3 #### [facility] , #### ESR, CBC #### [place] [address] [place] Platelets (Bld) [#/Vol] 258 10*3/uL Normal 150-450 [facility] Comment on above: Performed By: #### C H50, C4, C3 #### [facility] , #### ESR, CBC #### [address] RBC (Bld) [#/Vol] 4.68 10*6/uL Normal 3.60-5.00 [facility] Comment on above: Performed By: #### C H50, C4, C3 #### [facility] , #### ESR, CBC #### [address] WBC (Bld) [#/Vol] 13.2 10*3/uL High 4.5-11.0 [facility] Comment on above: Performed By: #### C H50, C4, C3 #### [facility] , #### ESR, CBC #### [address] Comprehensive Metabolic Pane raffaele 12-18-2021 Albumin [Mass/Vol] 4.1 g/dL Normal 3.2-5.5 [facility] Comment on above: Performed By: #### L UPANTCOAG #### [facility] , #### ADDONUAPLUS #### [address] Albumin/Globulin [Mass ratio] 1.4 {ratio} Normal [facility] Comment on above: Performed By: #### L UPANTCOAG #### [facility] , #### ADDONUAPLUS #### [address] ALP [Catalytic activity/Vol] 51 U/L Normal 32-92 [facility] Comment on above: Performed By: #### L UPANTCOAG #### [facility] , #### ADDONUAPLUS #### [address] [place] [address] [place] ALT [Catalytic activity/Vol] 61 U/L High 10-60 [facility] Comment on above: Performed By: #### L UPANTCOAG #### [facility] , #### ADDONUAPLUS #### [facility] [address] [place] [id number] [facility] AST [Catalytic activity/Vol] 33 U/L Normal 10-42 [facility] Comment on above: Performed By: #### L UPANTCOAG #### [facility] , #### ADDONUAPLUS #### [address] Bilirubin [Mass/Vol] 1.4 mg/dL High 0.3-1.2 [facility] Comment on above: Result Comment: Samp les from patients who have taken Naproxen have shown spurious elevation in Total Bilirubin levels. A metabolite of Naproxen, O-desmethylnaproxen, has been shown to interfere with the Jendrassik-Grof method for measuring Total Bilirubin. Performed By: #### L UPANTCOAG #### [facility] , #### ADDONUAPLUS #### [facility] [address] [place] [address] Calcium [Mass/Vol] 9.4 mg/dL Normal 8.2-10.2 [facility] Comment on above: Performed By: #### L UPANTCOAG #### [facility] , #### ADDONUAPLUS #### [facility] [address] [place] [address] [place] Chloride [Moles/Vol] 104 mmol/L Normal 95-114 [facility] Comment on above: Performed By: #### L UPANTCOAG #### [facility] , #### ADDONUAPLUS #### [facility] [address] [place], [place] [id number] [place] CO2 [Moles/Vol] 22.5 mmol/L Normal 22.0-30.0 [facility] Comment on above: Performed By: #### L UPANTCOAG #### [facility] , #### ADDONUAPLUS #### [facility] [address] Creatinine [Mass/Vol] 1.07 mg/dL High 0.44-1.03 [facility] Comment on above: Performed By: #### L UPANTCOAG #### [facility] , #### ADDONUAPLUS #### [address] Estimated GFR ( Lexis > 60 [facility] Comment on above: Result Comment: GFR estimated reference range: According to KDOQI guidelines, <60 ml/min/1.73m2 is sufficient to diagnose a patient with chronic kidney disease. Performed By: #### L UPANTCOAG #### [facility] , #### ADDONUAPLUS #### [facility] [address] [place] [address] Estimated GFR (Non- Am 51 [facility] Comment on above: Performed By: #### L UPANTCOAG #### [facility] , #### ADDONUAPLUS #### [facility] [address] [place] [address] Globulin (S) [Mass/Vol] 2.9 g/dL Normal [facility] Comment on above: Performed By: #### L UPANTCOAG #### [facility] , #### ADDONUAPLUS #### [facility] [address] [place] [address] Glucose [Mass/Vol] 142 mg/dL High 70-100 [facility] Comment on above: Result Comment: [place] om Glucose Reference Range is dependent on time and content of last meal. Glucose of more than 200 mg/dL in a nonstressed, ambulatory subject supports the diagnosis of Diabetes Mellitus. ADA recommended reference range Performed By: #### L UPANTCOAG #### [facility] , #### ADDONUAPLUS #### [address] Potassium [Moles/Vol] 4.1 mmol/L Normal 3.5-5.1 [facility] Comment on above: Performed By: #### L UPANTCOAG #### [facility] , #### ADDONUAPLUS #### [address] Protein [Mass/Vol] 7.0 g/dL Normal 6.1-7.9 [facility] Comment on above: Performed By: #### L UPANTCOAG #### [facility] , #### ADDONUAPLUS #### [address] Sodium [Moles/Vol] 137 mmol/L Normal 136-146 [facility] Comment on above: Performed By: #### L UPANTCOAG #### [facility] , #### ADDONUAPLUS #### [address] Urea nitrogen [Mass/Vol] 20 mg/dL Normal 9-23 [facility] Comment on above: Performed By: #### L UPANTCOAG #### [facility] , #### ADDONUAPLUS #### [place] [address] [place] Creatine Kinaseon 12-18-2021 CK [Catalytic activity/Vol] 46 U/L Normal 22-269 [facility] Comment on above: Result Comment: PERF ORMED BY: [place] [address] PATHOLOGIST CLAIM EXAMINER GIFTY CANO M.D. Performed By: #### L UPANTCOAG #### [facility] , #### ADDONUAPLUS #### [place] [address] [place] Dipstick and Microscopicon 0 12-18-2021 Appearance (U) Clear Normal Clear [facility] Comment on above: Order Comment: Name Collection Type:: Clean-Voided Midstream Performed By: #### L UPANTCOAG #### [facility] , #### ADDONUAPLUS #### [facility] [address] [place] [address] [place] Bacteria,Urine None Seen Normal None Seen [facility] Comment on above: Order Comment: Name Collection Type:: Clean-Voided Midstream Performed By: #### L UPANTCOAG #### [facility] , #### ADDONUAPLUS #### [facility] [address] [place] [address] [place] Bilirubin,Urine Negative Normal Negative [facility] Comment on above: Order Comment: Name Collection Type:: Clean-Voided Midstream Performed By: #### L UPANTCOAG #### [facility] , #### ADDONUAPLUS #### [facility] [address] [place] [address] [place] Color (U) Yellow Normal Yellow [facility] Comment on above: Order Comment: Name Collection Type:: Clean-Voided Midstream Performed By: #### L UPANTCOAG #### [facility] , #### ADDONUAPLUS #### [facility] [address] [place] [address] [place] Glucose Ql (U) Normal Normal Normal [facility] Comment on above: Order Comment: Name Collection Type:: Clean-Voided Midstream Performed By: #### L UPANTCOAG #### [facility] , #### ADDONUAPLUS #### [facility] [address] [place] [address] [place] Hyaline Casts,Urine - High 0-1 [facility] Comment on above: Order Comment: Name Collection Type:: Clean-Voided Midstream Performed By: #### L UPANTCOAG #### [facility] , #### ADDONUAPLUS #### [facility] [address] [place] [address] Ketones Ql (U) Trace High Negative [facility] Comment on above: Order Comment: Name Collection Type:: Clean-Voided Midstream Performed By: #### L UPANTCOAG #### [facility] , #### ADDONUAPLUS #### [address] Leukocyte esterase Test strip Ql (U) 2+ High Negative [facility] Comment on above: Order Comment: Name Collection Type:: Clean-Voided Midstream Performed By: #### L UPANTCOAG #### [facility] , #### ADDONUAPLUS #### [address] Nitrite,Urine Negative Normal Negative [facility] Comment on above: Order Comment: Name Collection Type:: Clean-Voided Midstream Performed By: #### L UPANTCOAG #### [facility] , #### ADDONUAPLUS #### [facility] [address] [place] [address] Occult Blood,Urine Negative Normal Negative [facility] Comment on above: Order Comment: Name Collection Type:: Clean-Voided Midstream Performed By: #### L UPANTCOAG #### [facility] , #### ADDONUAPLUS #### [facility] [address] [place] [address] Other Casts,Urine None Seen Normal None Seen [facility] Comment on above: Order Comment: Name Collection Type:: Clean-Voided Midstream Result Comment: PERF ORMED BY: [place] [address] PATHOLOGIST CLAIM EXAMINER GIFTY CANO M.D. Performed By: #### L UPANTCOAG #### [facility] , #### ADDONUAPLUS #### [address] [place] [address] [place] pH (U) 5.5 [pH] Normal 5.0-9.0 [facility] Comment on above: Order Comment: Name Collection Type:: Clean-Voided Midstream Performed By: #### L UPANTCOAG #### [facility] , #### ADDONUAPLUS #### [address] Protein (U) [Mass/Vol] 30 mg/dL High Negative [facility] Comment on above: Order Comment: Name Collection Type:: Clean-Voided Midstream Performed By: #### L UPANTCOAG #### [facility] , #### ADDONUAPLUS #### [address] RBC,Urine 3-4 Normal 0-4 [facility] Comment on above: Order Comment: Name Collection Type:: Clean-Voided Midstream Performed By: #### L UPANTCOAG #### [facility] , #### ADDONUAPLUS #### [address] Renal Epithelial Cells,Urine None Seen Normal 0-1 [facility] Comment on above: Order Comment: Name Collection Type:: Clean-Voided Midstream Performed By: #### L UPANTCOAG #### [facility] , #### ADDONUAPLUS #### [address] Specificy [place],Urine 1.024 Normal 1.001-1.030 [facility] Comment on above: Order Comment: Name Collection Type:: Clean-Voided Midstream Performed By: #### L UPANTCOAG #### [facility] , #### ADDONUAPLUS #### [address] Squamous Epithelial Cell,Urine 5-9 High 0-2 [facility] Comment on above: Order Comment: Name Collection Type:: Clean-Voided Midstream Performed By: #### L UPANTCOAG #### [facility] , #### ADDONUAPLUS #### [address] Urobilinogen,Urine Normal Normal Normal [facility] Comment on above: Order Comment: Name Collection Type:: Clean-Voided Midstream Performed By: #### L UPANTCOAG #### [facility] , #### ADDONUAPLUS #### [address] WBC,Urine 3-4 Normal 0-4 [facility] Comment on above: Order Comment: Name Collection Type:: Clean-Voided Midstream Performed By: #### L UPANTCOAG #### [facility] , #### ADDONUAPLUS #### [address] Erythrocyte Sedimentation Ra ramírez 12-18-2021 ESR (Bld) [Velocity] 25 mm/h Normal 0-29 [facility] Comment on above: Result Comment: PERF ORMED BY: [place] [address] PATHOLOGIST CLAIM EXAMINER GIFTY CANO M.D. Performed By: #### C H50, C4, C3 #### [facility] , #### ESR, CBC #### [address] Free T4 (Free Thyroxine)on 0 12-18-2021 Free T4 [Mass/Vol] 0.76 ng/dL Normal 0.61-1.12 [facility] Comment on above: Performed By: #### L UPANTCOAG #### [facility] , #### ADDONUAPLUS #### [address] Immunofixation, (LYN), Urine on 12-18-2021 Immunofixation, (LYN), Urine Normal . [facility] Comment on above: Result Comment: No m onoclonality detected. Performed at: [facility] [address] [id number] [employer]isher: Cody Williamson PhD, Phone: [phone] Performed By: #### L UPANTCOAG #### [facility] , #### ADDONUAPLUS #### [place] [address] [place] Immunofixation,Serumon 12-18 Immunofixation, Serum Normal . [facility] Comment on above: Result Comment: No m onoclonality detected. Performed By: #### L UPANTCOAG #### [facility] , #### ADDONUAPLUS #### [place] [address] [place] Immunoglobulin A, Serum 178 mg/dL Normal 87-352 [facility] Comment on above: Performed By: #### L UPANTCOAG #### [facility] , #### ADDONUAPLUS #### [place] [address] [place] Immunoglobulin G 868 mg/dL Normal 586-1602 [facility] Comment on above: Performed By: #### L UPANTCOAG #### [facility] , #### ADDONUAPLUS #### [place] [address] [place] Immunoglobulin M, Serum 199 mg/dL Normal 26-217 [facility] Comment on above: Result Comment: Perf ormed at: [email or web address] [address] [id number] [employer]isher: Cody Williamson PhD, Phone: [phone] Performed By: #### L UPANTCOAG #### [facility] , #### ADDONUAPLUS #### [place] [address] [place] Lupus Anticoagulant Compon 0 2-14-2022 Dilute Prothrombin Time (dPt) 36.4 Normal 0.0-47.6 [facility] Comment on above: Performed By: #### L UPANTCOAG #### [facility] , #### ADDONUAPLUS #### [facility] [address] [place] [address] dPT Confirm Ratio 1.07 Normal 0.00-1.34 [facility] Comment on above: Performed By: #### L UPANTCOAG #### [facility] , #### ADDONUAPLUS #### [address] DRVVT Lupus 31.4 Normal 0.0-47.0 [facility] Comment on above: Performed By: #### L UPANTCOAG #### [facility] , #### ADDONUAPLUS #### [address] Interpretation Comment: Normal . [facility] Comment on above: Result Comment: No l upus anticoagulant was detected. Performed at: [facility] [id number] [employer]isher: Aroldo Son MD, Phone: [phone] PERFORMED BY: [place] [address] PATHOLOGIST CLAIM EXAMINER GIFTY CANO M.D. Performed By: #### L UPANTCOAG #### [facility] , #### ADDONUAPLUS #### [place] [address] [place] PTT-LA 28.6 Normal 0.0-51.9 [facility] Comment on above: Performed By: #### L UPANTCOAG #### [facility] , #### ADDONUAPLUS #### [place] [address] [place] Thrombin Time 18.4 Normal 0.0-23.0 [facility] Comment on above: Performed By: #### L UPANTCOAG #### [facility] , #### ADDONUAPLUS #### [place] [address] [place] Myoglobinon 12-18-2021 Myoglobin [Mass/Vol] 31 ng/mL Normal 25-58 [facility] Comment on above: Result Comment: Perf ormed at: - [facility] [address] [id number] [employer]isher: Cody Williamson PhD, Phone: [phone] Performed By: #### L UPANTCOAG #### [facility] , #### ADDONUAPLUS #### [address] Partial Thromboplastin Timeo n 12-18-2021 aPTT Coag (Bld) [Time] 26.5 s Normal 25.1-36.5 [facility] Comment on above: Order Comment: Name Collection Type:: Clean-Voided Midstream Result Comment: PERF ORMED BY: [place] [address] PATHOLOGIST CLAIM EXAMINER GIFTY CANO M.D. Performed By: #### L UPANTCOAG #### [facility] , #### ADDONUAPLUS #### [facility] [address] [place] [address] [place] Protein Electro, Random Urin lexii 12-18-2021 Albumin, Urine 52.5 % Normal . [facility] Comment on above: Performed By: #### L UPANTCOAG #### [facility] , #### ADDONUAPLUS #### [facility] [address] [place] [address] [place] Wgyfn-0-Nkwdysev, Urine 1.8 % Normal . [facility] Comment on above: Performed By: #### L UPANTCOAG #### [facility] , #### ADDONUAPLUS #### [facility] [address] [place] [address] Txpgd-6-Mnekqfvq, Urine 9.1 % Normal . [facility] Comment on above: Performed By: #### L UPANTCOAG #### [facility] , #### ADDONUAPLUS #### [address] Beta Globulin, Urine 22.7 % Normal . [facility] Comment on above: Performed By: #### L UPANTCOAG #### [facility] , #### ADDONUAPLUS #### [address] Gamma Globulin, Urine 13.8 % Normal . [facility] Comment on above: Performed By: #### L UPANTCOAG #### [facility] , #### ADDONUAPLUS #### [address] M-Anatoly % Not Observed Normal Not Observed [facility] Comment on above: Performed By: #### L UPANTCOAG #### [facility] , #### ADDONUAPLUS #### [address] Please Note: Normal . [facility] Comment on above: Result Comment: Prot ein electrophoresis scan will follow via computer, mail, or construction carpenter delivery. Performed at: - [facility] [id number] [employer]: Cody Williamson PhD, Phone: [phone] PERFORMED BY: [place] [address] PATHOLOGIST CLAIM EXAMINER GIFTY CANO M.D. Performed By: #### L UPANTCOAG #### [facility] , #### ADDONUAPLUS #### [address] Protein (U) [Mass/Vol] 73.1 mg/dL Normal Not Estab. [facility] Comment on above: Performed By: #### L UPANTCOAG #### [facility] , #### ADDONUAPLUS #### [address] Protein Electrophoresis, Ser umon 12-18-2021 Albumin [Mass/Vol] 3.8 g/dL Normal 2.9-4.4 [facility] Comment on above: Performed By: #### L UPANTCOAG #### [facility] , #### ADDONUAPLUS #### [address] Albumin/Globulin [Mass ratio] 1.1 {ratio} Normal 0.7-1.7 [facility] Comment on above: Performed By: #### L UPANTCOAG #### [facility] , #### ADDONUAPLUS #### [address] Czged-4-Eussmeyb 0.3 g/dL Normal 0.0-0.4 [facility] Comment on above: Performed By: #### L UPANTCOAG #### [facility] , #### ADDONUAPLUS #### [address] Wrsvi-2-Bgtasfad 1.0 g/dL Normal 0.4-1.0 [facility] Comment on above: Performed By: #### L UPANTCOAG #### [facility] , #### ADDONUAPLUS #### [facility] [address] [place] [address] Beta Globulin 1.1 g/dL Normal 0.7-1.3 [facility] Comment on above: Performed By: #### L UPANTCOAG #### [facility] , #### ADDONUAPLUS #### [employer] [address] Gamma Globulin 1.0 g/dL Normal 0.4-1.8 [facility] Comment on above: Performed By: #### L UPANTCOAG #### [facility] , #### ADDONUAPLUS #### [address] Globulin (S) [Mass/Vol] 3.4 g/dL Normal 2.2-3.9 [facility] Comment on above: Performed By: #### L UPANTCOAG #### [facility] , #### ADDONUAPLUS #### [address] M-Anatoly Not Observed Normal Not Observed [facility] Comment on above: Performed By: #### L UPANTCOAG #### [facility] , #### ADDONUAPLUS #### [address] Protein [Mass/Vol] 7.2 g/dL Normal 6.0-8.5 [facility] Comment on above: Performed By: #### L UPANTCOAG #### [facility] , #### ADDONUAPLUS #### [address] SPE-Note Normal . [facility] Comment on above: Result Comment: Prot ein electrophoresis scan will follow via computer, mail, or construction carpenter delivery. Performed By: #### L UPANTCOAG #### [facility] , #### ADDONUAPLUS #### [address] Prothrombin Time INRon 12-18 INR Coag (PPP) [Relative time] 0.9 {INR} Normal [facility] Comment on above: Order Comment: Name [...] UPANTCOAG #### [facility] , #### ADDONUAPLUS #### [address] PT Coag (PPP) [Time] 10.4 s Normal 9.0-12.9 [facility] Comment on above: Order Comment: Name Collection Type:: Clean-Voided Midstream Performed By: #### L UPANTCOAG #### [facility] , #### ADDONUAPLUS #### [address] RPR w/rfx to Quant TP Abson 12-18-2021 RPR, Rfx Quant RPR Non-Reactive Normal Non Reactive [facility] Comment on above: Result Comment: Perf ormed at: [address] [id number] Jet Blade Polisher: Cody Williamson PhD, Phone: [phone] PERFORMED BY: [place] [address] PATHOLOGIST CLAIM EXAMINER GIFTY CANO M.D. Performed By: #### L UPANTCOAG #### [facility] , #### ADDONUAPLUS #### [address] Thyroid Peroxidase Antibodie son 12-18-2021 Thyroid Peroxidase Antibodies <8 Normal 0-34 [facility] Comment on above: Result Comment: Perf ormed at: [facility] [address] [id number] [employer] Polisher: Cody Williamson PhD, Phone: [phone] Performed By: #### L UPANTCOAG #### [facility] , #### ADDONUAPLUS #### [address] Thyroid Stimulating Hormoneo n 12-18-2021 TSH Qn 1.93 m[IU]/L Normal 0.45-5.33 [facility] Comment on above: Result Comment: PERF ORMED BY: [place] [address] PATHOLOGIST CLAIM EXAMINER GIFTY CANO M.D. Performed By: #### L UPANTCOAG #### [facility] , #### ADDONUAPLUS #### [address] CBC Without Differentialon 0 07-15-2021 Erythrocyte distribution width (RBC) [Ratio] 14.2 % Normal 11.9-15.3 [facility] Comment on above: Performed By: #### C H50, C4, C3 #### [facility] , #### ESR, CBC #### [address] Hematocrit (Bld) [Volume fraction] 44.1 % Normal 34.0-46.4 [facility] Comment on above: Performed By: #### C H50, C4, C3 #### [facility] , #### ESR, CBC #### [address] Hemoglobin (Bld) [Mass/Vol] 14.7 g/dL Normal 11.8-15.4 [facility] Comment on above: Performed By: #### C H50, C4, C3 #### [facility] , #### ESR, CBC #### [address] MCH (RBC) [Entitic mass] 30.1 pg Normal 24.7-34.3 [facility] Comment on above: Performed By: #### C H50, C4, C3 #### [facility] , #### ESR, CBC #### [address] MCV (RBC) [Entitic vol] 90.4 fL Normal 80-100 F [facility] Comment on above: Performed By: #### C H50, C4, C3 #### [facility] , #### ESR, CBC #### [address] Mean Corpuscular HGB Conc 33.3 g/dL Normal 32.0-35.0 [facility] Comment on above: Performed By: #### C H50, C4, C3 #### [facility] , #### ESR, CBC #### [address] Platelet mean volume (Bld) [Entitic vol] 9.0 fL Normal 6.3-10.7 [facility] Comment on above: Result Comment: PERF ORMED BY: [place] [address] PATHOLOGIST CLAIM EXAMINER GIFTY CANO M.D. Performed By: #### C H50, C4, C3 #### [facility] , #### ESR, CBC #### [address] Platelets (Bld) [#/Vol] 234 10*3/uL Normal 150-450 [facility] Comment on above: Performed By: #### C H50, C4, C3 #### [facility] , #### ESR, CBC #### [address] RBC (Bld) [#/Vol] 4.88 10*6/uL Normal 3.60-5.00 [facility] Comment on above: Performed By: #### C H50, C4, C3 #### [facility] , #### ESR, CBC #### [address] WBC (Bld) [#/Vol] 7.2 10*3/uL Normal 3.8-11.6 [facility] Comment on above: Performed By: #### C H50, C4, C3 #### [facility] , #### ESR, CBC #### [address] CMP Outreachon 07-15-2021 Albumin [Mass/Vol] 4.2 g/dL Normal 3.2-5.5 [facility] Comment on above: Performed By: #### C H50, C4, C3 #### [facility] , #### ESR, CBC #### [address] ALP [Catalytic activity/Vol] 62 U/L Normal 32-92 [facility] Comment on above: Performed By: #### C H50, C4, C3 #### [facility] , #### ESR, CBC #### [address] ALT [Catalytic activity/Vol] 24 U/L Normal 10-60 [facility] Comment on above: Performed By: #### C H50, C4, C3 #### [facility] , #### ESR, CBC #### [address] AST [Catalytic activity/Vol] 22 U/L Normal 10-42 [facility] Comment on above: Performed By: #### C H50, C4, C3 #### [facility] , #### ESR, CBC #### [address] Bilirubin [Mass/Vol] 1.4 mg/dL High 0.3-1.2 [facility] Comment on above: Result Comment: Samp les from patients who have taken Naproxen have shown spurious elevation in Total Bilirubin levels. A metabolite of Naproxen, O-desmethylnaproxen, has been shown to interfere with the Jendrassik-Grof method for measuring Total Bilirubin. Performed By: #### C H50, C4, C3 #### [facility] , #### ESR, CBC #### [facility] [address] Calcium [Mass/Vol] 9.5 mg/dL Normal 8.2-10.2 [facility] Comment on above: Performed By: #### C H50, C4, C3 #### [facility] , #### ESR, CBC #### [address] Chloride [Moles/Vol] 105 mmol/L Normal 95-114 [facility] Comment on above: Performed By: #### C H50, C4, C3 #### [facility] , #### ESR, CBC #### [address] CO2 [Moles/Vol] 24.4 mmol/L Normal 22.0-30.0 [facility] Comment on above: Performed By: #### C H50, C4, C3 #### [facility] , #### ESR, CBC #### [address] Creatinine [Mass/Vol] 0.97 mg/dL Normal 0.44-1.03 [facility] Comment on above: Performed By: #### C H50, C4, C3 #### [facility] , #### ESR, CBC #### [address] Estimated GFR ( Lexis > 60 Normal [facility] Comment on above: Result Comment: GFR estimated reference range: According to KDOQI guidelines, <60 ml/min/1.73m2 is sufficient to diagnose a patient with chronic kidney disease. Performed By: #### C H50, C4, C3 #### [facility] , #### ESR, CBC #### [facility] [address] [place] [address] [place] Estimated GFR (Non- Am 58 Normal [facility] Comment on above: Performed By: #### C H50, C4, C3 #### [facility] , #### ESR, CBC #### [facility] [address] [place] [address] [place] Glucose [Mass/Vol] 109 mg/dL High 70-100 [facility] Comment on above: Result Comment: [place] Glucose Reference Range is dependent on time and content of last meal. Glucose of more than 200 mg/dL in a nonstressed, ambulatory subject supports the diagnosis of Diabetes Mellitus. ADA recommended reference range Performed By: #### C H50, C4, C3 #### [facility] , #### ESR, CBC #### [facility] [address] [place] [address] [place] Potassium [Moles/Vol] 4.0 mmol/L Normal 3.5-5.1 [facility] Comment on above: Performed By: #### C H50, C4, C3 #### [facility] , #### ESR, CBC #### [facility] [address] Protein [Mass/Vol] 7.4 g/dL Normal 6.1-7.9 [facility] Comment on above: Performed By: #### C H50, C4, C3 #### [facility] , #### ESR, CBC #### [facility] [address] [place] [id number] [place] Sodium [Moles/Vol] 139 mmol/L Normal 136-146 [facility] Comment on above: Performed By: #### C H50, C4, C3 #### [facility] , #### ESR, CBC #### [facility] [address] [place] [address] [place] Urea nitrogen [Mass/Vol] 21 mg/dL Normal 9-23 [facility] Comment on above: Performed By: #### C H50, C4, C3 #### [facility] , #### ESR, CBC #### [address] Lipid Profile Outreachon Cholesterol [Mass/Vol] 199 mg/dL Normal 140-200 [facility] Comment on above: Result Comment: Chol less than 200 mg/dl low risk Chol 201-239 mg/dl borderline risk Chol 240 mg/dl and greater high risk Performed By: #### C H50, C4, C3 #### [facility] , #### ESR, CBC #### [address] Cholesterol in HDL [Mass/Vol] 67 mg/dL Normal 35-85 [facility] Comment on above: Result Comment: HDL CHOL ATP-III CLASSIFICATION Cardiovascular Risk HDL > or equal to 60 mg/dL LOW HDL < 40 mg/dL HIGH Performed By: #### C H50, C4, C3 #### [facility] , #### ESR, CBC #### [facility] [address] [place] [address] Cholesterol.total/Mary sterol in HDL [Mass ratio] 3.0 {ratio} Normal <5.0 [facility] Comment on above: Performed By: #### C H50, C4, C3 #### [facility] , #### ESR, CBC #### [address] LDL Cholesterol,Calculated 111 mg/dL High 0-100 [facility] Comment on above: Result Comment: LDL ATP III CLASSIFICATION LDL less than 100 mg/dL Optimal LDL 100-129 mg/dL Near or above optimal LDL 130-159 mg/dL Borderline high LDL 160-189 mg/dL High LDL greater than 189 mg/dL Very high Performed By: #### C H50, C4, C3 #### [facility] , #### ESR, CBC #### [address] Triglyceride w/Reflex 105 mg/dL Normal 35-149 [facility] Comment on above: Result Comment: TRIG ATP III CLASSIFICATION TRIG less than 150 mg/dL Normal TRIG 150-199 mg/dL Borderline high TRIG 200-500 mg/dL High TRIG greater than 500 mg/dL Very high Standard traceable to the Center for Disease Conrtrol and Prevention (CDC) test method. Performed By: #### C H50, C4, C3 #### [facility] , #### ESR, CBC #### [address] VLDL CHOLESTEROL 21 mg/dL Normal [facility] Comment on above: Performed By: #### C H50, C4, C3 #### [facility] , #### ESR, CBC #### [address] Vitamin D 25 Hydroxy Totalon 07-15-2021 Vitamin D 25 Hydroxy Total 33.4 ng/mL Normal 30-100 [facility] Comment on above: Result Comment: GARY MIN D STATUS 25(OH)VITAMIN D RANGE (ng/mL) Deficient <20 Insufficient 20 to <30 Sufficient 30 to 100 Reference: Vero MF,Nara NC, Darius RHODES, et al. Evaluation,treatment, and prevention of vitamin D deficiency; an Endocrine Society clinical practice guideline. JCEM. 2010; 96(7):1911-30. PERFORMED BY: [place] [address] PATHOLOGIST CLAIM EXAMINER GIFTY CANO M.D. Performed By: #### C H50, C4, C3 #### [facility] , #### ESR, CBC #### [address] CNPNon 03-02-2021 CNPN Telephone (HEMASA) AUBRIEUZMA J ([id number]) 1955 F Date Time Provider Department 03/02/21 ARJUN HART During your visit today, we recorded the following information about you: Arjun Hart RN 03/02/2021 1:23 PM Signed Received call [...] Status:Closed by ARJUN HART on 03/02/21 Normal [facility] Estela 02-21-2021 CNPN Telephone (NCCAP) UZMA ALFRED ([id number]) 1955 F Date Time Provider Department 02/21/21 ERROL CORBIN NCCAP During your visit today, we recorded the following information about you: Caterina Weston [facility] 02/21/2021 9:58 AM Signed Pt is scheduled at [facility] for bone density and yayo screen mammogram. Dr Corbin, can you please review and place orders in Hands to be faxed? Thanks! Katia Rojas RN 02/21/2021 11:17 AM Signed Orders pended. Please review and approve. Thanks, ADELSO Moore 02/21/2021 12:33 PM Signed Signed. Lilia Castro APRN.SOREN Ava Villar Pss 02/21/2021 12:54 PM Signed Faxed to [facility] Allergies As of Date: 02/21/2021 Noted Allergy [...] without current pathological fracture [M81.0] Order(s):DXA-AXIAL SKELETON [[id number]] Order #: [id number] FUTURE JOHANN SCREENING [[id number]] Order #: [id number] FUTURE Prescriptions as of 02/21/2021 Sig: ROSUVASTATIN [...] Status:Closed by CATERINA MADERA on 04/14/21 Normal [facility] Vital Signs Date Time Vital Sign Value Performing Clinician Facility 01-03-2024 11:09-0500 Body height 167.6 cm Maria L Vikas BANQUET COORDINATOR[employer]Life [facility] 01-03-2024 11:09-0500 Body mass index (BMI) [Ratio] 28.57 kg/m2 Maria Ljulio Wisdom APRNbLife [email or web address] 01-03-2024 11:09-0500 Body weight 80.29 kg Maria L Wisdom [employer] Work [email or web address] 01-03-2024 11:09-0500 Diastolic blood pressure 96 mm[Hg] Maria L Wisdom [employer] Work [email or web address] 01-03-2024 11:09-0500 Systolic blood pressure 174 mm[Hg] Maria L Wisdom APRNbLife Work Phone: [facility] 06-18-2023 10:30-0400 Body height 167.64 cm Florinda Flowers Other [employer] Other 06-18-2023 10:30-0400 Body mass index (BMI) [Ratio] 28.73 kg/m2 Florinda Flowers Other [employer] Other 06-18-2023 10:30-0400 Body weight 80.74 kg Florinda Flowers Other [employer] Other 06-18-2023 10:30-0400 Diastolic blood pressure 75 mm[Hg] Florinda Flowers Other [employer] Other 06-18-2023 10:30-0400 Systolic blood pressure 131 mm[Hg] Florinda Flowers Other [employer] Other 12-24-2022 10:00-0500 Body height 167.64 cm Florinda Flowers Other [employer] Other 12-24-2022 10:00-0500 Body mass index (BMI) [Ratio] 30.02 kg/m2 Florinda Flowers Other [employer] Other 12-24-2022 10:00-0500 Body weight 84.37 kg Floridna Flowers Other [employer] Other 12-24-2022 10:00-0500 Diastolic blood pressure 84 mm[Hg] Florinda Flowers Other [employer] Other 12-24-2022 10:00-0500 Systolic blood pressure 130 mm[Hg] Florinda Flowers Other [employer] Other 09-30-2022 12:00-0500 Body height 167.64 cm Elizabeth Wyatt Other [employer] Other 09-30-2022 12:00-0500 Body mass index (BMI) [Ratio] 29.53 kg/m2 Elizabeth Wyatt Other [employer] Other 09-30-2022 12:00-0500 Body temperature 98.3 [degF] Elizabeth Wyatt Other [employer] Other 09-30-2022 12:00-0500 Body weight 83.01 kg Elizabeth Wyatt Other [employer] Other 09-30-2022 12:00-0500 Respiratory rate 18 /min Elizabeth Wyatt Other [employer] Other 09-30-2022 12:00-0500 SaO2% (BldA) [Mass fraction] 99 % Elizabeth Wyatt Other [employer] Other 08-14-2022 15:20-0400 Body height 167.64 cm Teetee [employer] Other [employer] Other 08-14-2022 15:20-0400 Body mass index (BMI) [Ratio] 30.5 kg/m2 Teetee Boommy [employer] Other [employer] Other 08-14-2022 15:20-0400 Body temperature 96.2 [degF] Aziz Boommy [employer] Other [employer] Other 08-14-2022 15:20-0400 Body weight 85.73 kg Aziz [employer] Other [employer] Other 08-14-2022 15:20-0400 Diastolic blood pressure 85 mm[Hg] Aziz [employer]my [employer] Other [employer] Other 08-14-2022 15:20-0400 Respiratory rate 18 /min Teetee Rizvi Other [facility] [employer] Other 08-14-2022 15:20-0400 SaO2% (BldA) [Mass fraction] 96 % Teetee Rizvi Other [facility] [employer] Other 08-14-2022 15:20-0400 Systolic blood pressure 147 mm[Hg] Teetee Rizvi Other [facility] [employer] Other 07-20-2022 13:49-0400 Body height 167.64 cm Florinad Flowers Work Phone: [facility] [employer] 600 DO Work Phone: 07-20-2022 13:49-0400 Diastolic blood pressure 78 mm[Hg] Florinda Flowers Work Phone: [facility] [employer] 600 DO Work Phone: 07-20-2022 13:49-0400 Heart rate 66 /min Florinda Flowers Work Phone: [facility] [employer] 600 DO Work Phone: 07-20-2022 13:49-0400 Systolic blood pressure 120 mm[Hg] Florinda Flowers Work Phone: [facility] [employer] 600 DO Work Phone: 07-04-2022 12:06-0400 Diastolic blood pressure 85 mm[Hg] MD Florinda Flowers Work Phone: [facility] 07-04-2022 12:06-0400 Heart rate 62 /min MD Florinda Flowers Work Phone: [facility] 07-04-2022 12:06-0400 Respiratory rate 16 /min MD Florinda Flowers Work Phone: [facility] 07-04-2022 12:06-0400 SaO2% (BldA) [Mass fraction] 95 % MD Florinda Flowers Work Phone: [facility] 07-04-2022 12:06-0400 Systolic blood pressure 146 mm[Hg] MD Florinda Flowers Work Phone: [facility] 07-04-2022 09:23-0400 Body height 167.64 cm MD Florinda Flowers Work Phone: [facility] 07-04-2022 09:23-0400 Body weight 85.72 kg MD Florinda Flowers Work Phone: [facility] 06-12-2022 17:20-0400 Body height 167.64 cm Azdenita [employer] Other [facility] [employer] Other 06-12-2022 17:20-0400 Body mass index (BMI) [Ratio] 30.5 kg/m2 Azdenita [employer] Other [employer] Other 06-12-2022 17:20-0400 Body temperature 97 [degF] Aziz [employer] Other [employer] Other 06-12-2022 17:20-0400 Body weight 85.73 kg Aziz [employer] Other [employer] Other 06-12-2022 17:20-0400 Diastolic blood pressure 88 mm[Hg] Aziz [employer] Other [employer] Other 06-12-2022 17:20-0400 Respiratory rate 18 /min Aziz Bakhous Other [employer] Other 06-12-2022 17:20-0400 SaO2% (BldA) [Mass fraction] 97 % Aziz Bakhous Other [employer] Other 06-12-2022 17:20-0400 Systolic blood pressure 155 mm[Hg] Teetee Rizvi Other [employer] Other Encounters Encounter Date Encounter Type Care Provider Facility Start: 01-29-2024 Orders Only Maria L heath BANQUET COORDINATOR-AGING DEPARTMENT SUPERVISOR Work Phone: [facility] Comment on above: History of colon jody yps (Primary Dx) Start: 01-03-2024 End: 01-03-2024 [facility] Start: 01-03-2024 End: 01-03-2024 Office outpatient visit 15 minutes Maria L Wisdom BANQUET COORDINATOR-AGING DEPARTMENT SUPERVISOR Work Phone: [facility] Comment on above: History of colon jody yps (Primary Dx) Start: 12-25-2023 End: 12-26-2023 ambulatory DELL CORTEZ Not Available Start: 10-29-2023 End: 10-29-2023 ambulatory Florinda Flowers Other [employer] Other Start: 10-29-2023 Telephone encounter Florinda Flowers [facility] Start: 08-19-2023 End: 08-19-2023 ambulatory Florinda Flowers Other [employer] Other Start: 08-19-2023 Telephone encounter Florinda Flowers [facility] Start: 08-05-2023 End: 08-05-2023 ambulatory Florinda Flowers Other [employer] Other Start: 08-05-2023 Telephone encounter Florinda Flowers [facility] Start: 06-18-2023 End: 06-18-2023 ambulatory Florinda Flowers Other [employer] Other Start: 06-18-2023 Encounter for other preprocedural examination Florinda Flowers [facility] Start: 06-18-2023 Office outpatient vi sit 25 minutes Florinda Flowers [facility] Start: 03-12-2023 End: 03-12-2023 ambulatory Florinda Flowers Other [employer] Other Start: 03-12-2023 Telephone encounter Florinda Lionel [facility] Start: 02-20-2023 End: 02-21-[address] DOCTOR RODGERS Facility:[facility] Start: 12-24-2022 Patient encounter procedure Florinda Lionle [facility] Start: 12-24-2022 End: 12-25-[address] FLORINDA FLOWERS [employer] Other Start: 12-06-2022 End: 12-06-2022 ambulatory Florinda Flowers Other [employer] Other Start: 12-06-2022 Telephone encounter Florinda Flowers [facility] Start: 11-26-2022 Encounter for preprocedural laboratory examination DR REHANA REINOSO . [facility] Start: 2022 End: [address] REHANA REINOSO . Facility:[facility] Start: 11-19-2022 End: 11-20-[address] REHANA REINOSO . Facility:[facility] Start: 11-19-2022 End: 11-20-2022 Encounter for preprocedural laboratory examination DR REHANA REINOSO . Facility:[facility] Start: 10-31-2022 End: 11-01-[address] DOCTOR RODGERS Facility:[facility] Start: 10-05-2022 Adult health examination Delaney tianna Lionel Other [employer] Other Start: 10-05-2022 Gynecological examin ation normal Florinda Flowers Other [employer] Other Start: 10-05-2022 Pre-procedure evalua tion check Florinda Flowers Other [employer] Other Start: 10-05-2022 Preoperative cardiovascular examination Florinda Flowers Other [employer] Other Start: 10-05-2022 Problem, abnormal examination Florinda Flowers Other [employer] Other Start: 09-30-2022 End: 09-30-2022 ambulatory Elizabeth Francomond Other [employer] Other Start: 09-30-2022 Office outpatient vi sit 15 minutes Elizabeth Yoselin [facility] Start: 08-14-2022 End: 08-14-2022 ambulatory Aziz Bakhous Other [employer] Other Start: 08-14-2022 Office outpatient vi sit 25 minutes Aziz Bakhous [facility] Start: 08-01-2022 End: 08-01-2022 ambulatory Aziz Bakhous Other [employer] Other Start: 08-01-2022 Telephone encounter Aziz Bakhous [facility] Start: 07-30-2022 End: 07-31-[address] LEI GOYAL Facility:[facility] Start: 07-20-2022 Office outpatient vi sit 25 minutes Florinda Flowers Work Phone: [facility] 250 DO Work Phone: Start: 07-20-2022 Patient encounter procedure Florinda Flowers Work Phone: [facility] 600 DO Work Phone: Start: 07-20-[address] Florinda Flowers Facility: Start: 07-04-2022 End: 07-04-2022 Admission to same day surgery center MD Florinda Flowers Work Phone: [facility] [place] Start: 07-02-2022 End: 07-03-[address] RYAN ORTIZ Facility:[facility] Start: 07-02-2022 End: 07-03-[address] ERROL CORBIN Facility: Start: 06-12-2022 End: 06-12-2022 ambulatory Teetee Rizvi Other [facility] [employer] Other Start: 06-12-2022 Office outpatient ne w 45 minutes Teetee Rizvi [facility] Start: 03-19-2022 End: 03-19-2022 Patient encounter procedure MD Florinda Flowers Work Phone: [facility] [address] Start: 02-06-2022 Telephone encounter Errol womack MD Work Phone: Hematology/Oncology Comment on above: Lab Orders Start: 12-20-2021 End: 12-20-2021 Patient encounter procedure MD Florinda Flowers Work Phone: [facility] C[facility]-XRay [address] Start: 02-15-2021 End: 02-15-2021 Chart abstracting Errol Corbin Work Phone: Hematology/Oncology Start: 02-02-2021 End: 02-02-2021 Patient encounter procedure External Provider [facility] Start: 02-02-2021 Results Only External Provider Exter nal-NonCCF Procedures Date Procedure Procedure Detail Performing Clinician Start: 2022 Colonoscopy Maria L Cheryl lincolnoll BANQUET COORDINATOR-AGING DEPARTMENT SUPERVISOR Work Phone: Start: 12-20-2021 Plain X-ray of bilat eral femurs MD Florinda Flowers Work Phone: Start: 12-20-2021 Plain X-ray of bilat eral tibia and bilateral fibula MD Florinda Flowers Work Phone: Start: 02-02-2021 EXTERNAL IMAGING [employer]inder [employer] Box Builder al Provider Start: 02-02-2021 EXTERNAL LAB External P rovider Start: 08-05-2015 Screening for malign ant neoplasm of breast Florinda Flowers Other Arthroplasty of knee Florinda Flowers Work Phone: Colonoscopy Florinda Flowers Work Phone: Excision of breast tissue Rowdy Flowers Work Phone: Comment on above: Breast surgery; Hysterectomy Florinda Arriola Flowers Work Phone: Operation on breast Florinda Arriola Flowers Work Phone: Operative procedure on knee Florinda Arriola Lionel Work Phone: Procedure on back Florinda mendez Work Phone: Screening for malign ant neoplasm of breast Florinda Lionel Other Total replacement of hip Tamar Arriola Lionel Work Phone: Plan of Treatment Date Care Activity Detail Author Start: 01-02-2025 Adult BMI Screening Adult BMI Screen ing [facility] Start: 01-02-2025 Tobacco Screening Tobacco Screening [facility] Start: 02-05-2024 End: 02-05-2024 Patient encounter procedure 02/05/2024 7:30 AM EDT Procedure visit [facility] [address] [place], [place] [id number] Rehana Reinoso DO [address] [id number] [facility] Start: 2023 Screening for malign ant neoplasm of colon Colonoscopy [facility] Start: 08-06-2023 FUV, Provider: Lei Goyal, Status: Pen, Time: 9:50 AM FUV, Provider: Lei Goyal, Status: Pen, Time: 9:50 AM [facility] 600 DO Work Phone: Start: 07-05-2023 COVID-19 Vaccine ( season) COVID-19 Vaccine ( season) [facility] Start: 07-05-2023 Influenza vaccination Influenza Vacc ine [facility] Start: 07-05-2022 Influenza vaccination INFLUENZ A (Season Ended) [facility] Start: 07-04-2022 [facility] Work Phone: Start: 07-04-[address] guided biopsy [facility] Start: 02-15-2022 End: 04-17-2022 CBC W Auto Differential panel - Blood CBC + DIFF Lab Routine Malignant neoplasm of upper-outer quadrant of left breast in female, estrogen receptor positive (HCC) Expected: 02/15/2022, Expires: 04/17/2022 [facility] Work Phone: Comment on above: Expected: 02/15/2022 , Expires: 04/17/2022 Start: 02-15-2022 End: 04-17-2022 Comprehensive metabolic 2000 panel - Serum or Plasma COMP METABOLIC PANEL Lab Routine Malignant neoplasm of upper-outer quadrant of left breast in female, estrogen receptor positive (HCC) Expected: 02/15/2022, Expires: 04/17/2022 [facility] Work Phone: Comment on above: Expected: 02/15/2022 , Expires: 04/17/2022 Start: 11-04-2021 ADVANCE DIRECTIVE DISCUSSION ADVANCE DIRECTIVE DISCUSSION [facility] Start: 07-05-2021 Influenza vaccination INFLUENZ A (Season Ended) [facility] Start: 06-12-2021 COVID-19 VACCINE (3 - Booster) COVID-19 VACCINE (3 - Booster) [facility] Start: 2020 ADVANCE DIRECTIVE DISCUSSION ADVANCE DIRECTIVE DISCUSSION [facility] Start: 2020 BONE DENSITY BONE DENSITY [facility] Start: 2020 Fall Risk Screening Fall Risk Screen ing [facility] Start: 2020 PNEUMOVAX AGE 65 AND OVER WITH 5YR LOOKBACK (#1) PNEUMOVAX AGE 65 AND OVER WITH 5YR LOOKBACK (#1) [facility] Start: 01-26-2017 DIABETES SCREEN DIABETES SCREEN [facility] Start: 2005 Administration of varicella zoster vaccine Zoster (Shingles) Vaccine (1 of 2) [facility] Start: 2005 Screening for malign ant neoplasm of colon [facility] Start: 2005 SHINGRIX VACCINE (1 of 2) SHINGRIX VACCINE (1 of 2) [facility] Start: 2000 COLOGUARD (FIT-DNA) COLOGUARD (FIT-D NA) [facility] Start: 2000 Colonoscopy COLONOSCOPY [facility] Start: 2000 COLORECTAL CANCER SCREENING COLORECTAL CANCER SCREENING [facility] Start: [address] COLONOGRAPHY [facility] Start: 2000 FECAL OCCULT BLOOD FECAL OCCULT BLOO D [facility] Start: 2000 LIPID SCREEN LIPID SCREEN [facility] Start: 2000 SIGMOIDOSCOPY SIGMOIDOSCOPY [facility] Start: 1995 Mammography MAMMOGRAM [facility] Start: 1974 DTaP,Tdap and Td Vaccines (1 - Tdap) DTaP,Tdap and Td Vaccines (1 - Tdap) [facility] Start: 1974 Urine microalbumin profile DTAP,TDAP,TD (1 - Tdap) [facility] Start: 1973 Adult BMI Follow Up Plan Adult BMI Follow Up Plan [facility] Start: 1973 HEPATITIS C SCREENING HEPATITIS C SC REENING [facility] Start: 1973 HIV SCREENING HIV SCREENING [facility] Start: 1967 Adult depression screening assessment DEPRESSION SCREENING [facility] Start: 1955 Medicare Annual Well ness Visit Medicare Annual Wellness Visit [facility] End: 01-02-2025 Colonoscopy Colonoscopy GI Routine History of colon polyps 1 Occurrences starting 01/03/2024 until 01/02/2025 [employer] Work Phone: Comment on above: 1 Occurrences starti ng 01/03/2024 until 01/02/2025 Cryoglobulin [Presen ce] in Serum [facility] Work Phone: Patient Education Kidney Biopsy [facility] Work Phone: [facility] Immunizations Immunization Date Immunization Notes Care Provider Fa cility 08-28-2021 COVID-19 [id number] (Moderna) MD Florinda Flowers Work Phone: [facility] 08-21-2021 influenza virus vaccine, split virus (incl. purified surface antigen) Florinda Flowers Other [employer] Other 08-21-2021 Seasonal trivalent influenza vaccine, adjuvanted, preservative free Florinda Flowers Work Phone: [facility] 600 DO Work Phone: 08-21-2021 influenza virus vaccine, unspecified formulation Maria L Wisdom DANYA-AGING DEPARTMENT SUPERVISOR Work Phone: [facility] 06-12-2021 pneumococcal polysaccharide vaccine, 23 valent Florinda Flowers Work Phone: [facility] 600 DO Work Phone: 01-10-2021 COVID-19 mRNA-[id number] (Moderna) MD Florinda Flowers Work Phone: [facility] 01-10-2021 COVID-19 vaccine (UNSPECIFIED) Errol Corbin MD Work Phone: [facility] 12-12-2020 COVID-19 mRNA-[id number] (Moderna) MD Florinda Flowers Work Phone: [facility] 12-12-2020 COVID-19 vaccine (UNSPECIFIED) Errol Corbin MD Work Phone: [facility] 08-04-2019 influenza virus vaccine, unspecified formulation Florinda Flowers Work Phone: [facility] 600 DO Work Phone: 08-04-2018 influenza virus vaccine, unspecified formulation Florinda Flowers Work Phone: [facility] 600 DO Work Phone: 08-04-2017 influenza virus vaccine, unspecified formulation Florinda Flowers Work Phone: [facility] 600 DO Work Phone: 09-10-2009 novel [id number], preservative-free, injectable Florinda Flowers Work Phone: [facility] 600 DO Work Phone: Payers Date Payer Category Payer Private Health Insurance [facility] [id number] 2021-Present [phone] [address] [place] [address] [id number] 2020 Medicare [id number] 2020 Medicare MEDICARE MEDICAR E PART A & B [id number] 2020-Present [phone] [address] [place] [address] [id number] 2020 Private Health Insurance xxx [id number] 1959 Medicare [id number] 1959 Unknown [id number] 1955 Unknown [id number]. 356 1955 Unknown [id number] 2.16.840.1.857740.3.579.2. 593 1955 Unknown [id number] 2.16.840.1.274026.3.579.2. 593 1955 Unknown [id number] 2.16.840.1.142636.3.579.2. 593 1955 Unknown [id number] 2.16.840.1.040087.3.579.2. 593 1955 Unknown [id number] 2.16.840.1.504013.3.579.2. 593 1955 Unknown [id number] 2.16.840.1.917105.3.579.2. 593 1955 Unknown [id number] 2.16.840.1.624152.3.579.2. 593 1955 Unknown [id number] 2.16.840.1.261962.3.579.2. 593 1955 Unknown [id number] 2.16.840.1.829285.3.579.2. 1259 1955 Unknown [id number] 2.16.840.1.405490.3.579.2. 1259 1955 Unknown [id number] 2.16.840.1.121380.3.579.2. 1286 Self-pay Self Pay [id number] Unknown O [id number] Unknown Social History Date Type Detail Facility Start: 01-27-2015 End: 01-03-2024 Tobacco smoking status NHIS Former smoker [facility] History of tobacco use Cigarette Smoker C [facility] Start: 01-27-2015 End: 12-15-2020 Cigarettes smoked current (pack per day) - Reported [facility] Start: 01-27-2015 End: 01-03-2024 Tobacco use and exposure Never used [facility] Start: 01-27-2015 End: 01-03-2024 Alcohol intake Current drinker of alcohol (finding) [facility] Start: 1955 Sex Assigned At Not on file C [facility] Start: 1955 Sex Assigned At Female F [facility] Start: 12-15-2020 End: 01-03-2024 Sex Assigned At [facility] [employer] Other Start: 07-04-2022 Tobacco smoking stat us KSIS Never smoked tobacco (finding) [facility] History of tobacco use Current smoker [facility] Childcare Unknown [facility] Start: 01-03-2024 Tobacco Comment Tried cigarett es when 17 years old [facility] Start: 10-17-2022 Alcohol Comment rarely [facility] Medical Equipment Procedure Code Equipment Code Equipment Origin al Text Equipment Identifier Dates Cement Bn Bio 40 gm Rpl [id number] - Sn/A - [id number] [id number](21)N/A, [id number] FDA Start: 06-25-2023 Component Ptlr 3 2mm Persona Alply Kn Strl Lf - Sn/A - [id number] Start: 06-25-2023 Plate Tib 66x46m m Nxgn Kn Cmnt Mdlr Stm Prect 4 Tiv Pmma Rpl [id number] - Sn/A - [id number] [id number] (21)N/A, [id number] FDA Start: 06-25-2023 Goals Date Patient Goal Desired Activity /State Personal health goal Comment on above: Formatting of this n ote might be different from the original. Evaluation of progress towards goal: Home with family support and [facility] PT services Clinical Notes 02-06-2022 to 01-03-2024 Maria L Wisdom, [facility] - 01/03/2024 11:00 AM EST Note Date & Type Note Facility 01-03-2024 History of Present illness Narrative Images from the original note were not included. Chief Complaint: History of colon polyps History of Present Illness Uzma Alfred is a 68 y.o. female who presents to the office for colonoscopy. Her last colonoscopy was [address] Reinoso, significant for 2 tubulovillous adenomas. It was recommended she follow-up in 1 year for surveillance. She denies any changes in her bowels including diarrhea, constipation, abdominal pain, melena, hematochezia, unexplained weight loss. There is no family history of colon cancer. Review of Systems Constitutional: Negative for fever and unexpected weight change. HENT: Negative for trouble swallowing. Respiratory: Negative for shortness of breath. Cardiovascular: Negative for chest pain. Gastrointestinal: Negative for nausea, vomiting, abdominal pain, diarrhea, constipation and blood in stool. Genitourinary: Negative for dysuria and difficulty urinating. Musculoskeletal: Negative for gait problem. Skin: Negative for rash and wound. Neurological: Negative for dizziness, weakness and light-headedness. Hematological: Does not bruise/bleed easily. Psychiatric/Behavioral: Negative for confusion. Past Medical History: Diagnosis Date Arthritis Breast cancer ([facility]) 2002 Hypertension Obesity Osteopenia Urinary frequency Visual impairment Past Surgical History: Procedure Laterality Date BACK SURGERY x2 BREAST RECONSTRUCTION Left COLONOSCOPY 04/2018 MASTECTOMY Left 2002 at [facility] REPLACEMENT TOTAL JOINT KNEE Right 06/25/2023 Performed by Dell Adrian Jr. DO at [facility] REPL[facility]EMENT TOTAL KNEE Left 01/2022 TOTAL HIP ARTHROPLASTY Bilateral Allergies Allergen Reactions Fentanyl Other (See Comments) Leg Weakness Oxycodone-Acetaminophen GI Disturbance Lamisil [Terbinafine] Rash Penicillins Rash Sulfa Dyne Rash Current Outpatient Medications: alendronate (FOSAMAX) 70 mg tablet, Take 1 tablet (70 mg total) by mouth every 7 days., Disp: , Rfl: amLODIPine (NORVASC) 5 mg tablet, Take 1 tablet (5 mg total) by mouth in the morning., Disp: , Rfl: 3 cholecalciferol, vitamin D3, (VITAMIN D3 ORAL), daily., Disp: , Rfl: coenzyme Q10 200 mg capsule, Take 200 mg by mouth in the morning., Disp: , Rfl: ezetimibe-simvastatin (VYTORIN) 10-40 mg per tablet, Take 1 tablet by mouth nightly., Disp: , Rfl: hydrALAZINE (APRESOLINE) 50 mg tablet, Take 1 tablet (50 mg total) by mouth in the morning., Disp: , Rfl: 3 metoprolol tartrate (LOPRESSOR) 25 mg tablet, 1 tablet (25 mg total) in the morning and 1 tablet (25 mg total) before bedtime., Disp: , Rfl: 3 multivitamin (THERAGRAN) tablet, Take 1 tablet by mouth in the morning., Disp: , Rfl: predniSONE (DELTASONE) 5 mg tablet, Take 1 tablet (5 mg total) by mouth in the morning., Disp: , Rfl: rosuvastatin (CRESTOR) 40 mg tablet, Take 1 tablet (40 mg total) by mouth in the morning., Disp: , Rfl: 3 zolpidem (AMBIEN) 10 mg tablet, nightly as needed., Disp: , Rfl: 1 lidocaine (LIDODERM) 5 %, Place 1 patch on the skin daily as needed for pain (pain) for up to 15 doses. Remove & Discard patch within 12 hours or as directed by MD (Patient not taking: Reported on 01/03/2024), Disp: 15 patch, Rfl: 0 sod sulf-pot chloride-mag sulf 1.479-0.188- 0.225 gram tablet, Please see instructional sheet given by physicians office., Disp: 24 tablet, Rfl: 0 Social History Socioeconomic History Marital status: Spouse name: Not on file Number of children: Not on file Years of education: Not on file Highest education level: Not on file Occupational History Not on file Tobacco Use Smoking status: Former Types: Cigarettes Smokeless tobacco: Never Tobacco comments: Tried cigarettes when 17 years old Vaping Use Vaping Use: Never used Substance and Sexual Activity Alcohol use: Yes Comment: rarely Drug use: Not Currently Sexual activity: Defer Other Topics Concern Not on file Social History Narrative Not on file Social Determinants of Health Financial Resource Strain: Not on file Food Insecurity: No Food Insecurity (01/03/2024) Hunger Screening Food Insecurity - Worry: Never True Food Insecurity - Inability: Never True Transportation Needs: Not on file Physical Activity: Not on file Stress: Not on file Social Connections: Not on file Interpersonal Safety: Not on file Housing Instability: Not on file Family History Problem Relation Age of Onset Hypertension Mother Hypertension Father Objective Physical Exam Constitutional: General: She is not in acute distress. Appearance: Normal appearance. She is not ill-appearing. HENT: Head: Normocephalic and atraumatic. Mouth/Throat: Mouth: Mucous membranes are moist. Eyes: Pupils: Pupils are equal, round, and reactive to light. Cardiovascular: Rate and Rhythm: Normal rate and regular rhythm. Pulmonary: Effort: Pulmonary effort is normal. No respiratory distress. Abdominal: General: Bowel sounds are normal. There is no distension. Palpations: Abdomen is soft. Tenderness: There is no abdominal tenderness. Musculoskeletal: General: Normal range of motion. Skin: General: Skin is warm and dry. Neurological: Mental Status: She is alert and oriented to person, place, and time. Mental status is at baseline. Vital Signs: Blood pressure (!) 174/96, height 167.6 cm (5' 6 ), weight 80.3 kg (177 lb). Respiratory Source: No data recorded Admission Weight: Weight: 80.3 kg (177 lb) Labs Lab Results Component Value Date WBC 8.3 06/10/2023 HGB 9.4 (L) 06/26/2023 HCT 27.3 (L) 06/26/2023 MCV 89 06/10/2023 PLT 246 06/10/2023 Lab Results Component Value Date GLU 114 (H) 06/10/2023 CALCIUM 9.4 06/10/2023 K 3.7 06/10/2023 CO2 26 06/10/2023 CL 106 06/10/2023 BUN 19 06/10/2023 CREATININE 0.71 06/10/2023 No results found for: AMYLASE No results found for: LIPASE No results found for: ALT , AST , GGT , ALKPHOS , LABBILI No results found for: INR , PROTIME Assessment Uzma Alfred is a 68 y.o.female who presents to the office for colonoscopy due to history of colon polyps. Plan Colonoscopy with possible biopsy and/or polypectomy. Risks, benefits, and alternatives discussed with patient. Educated on bowel evacuation preparation. Patient verbalizes understanding and wishes to proceed. Evaluation included: Preparing to see the patient (e.g., review of tests) Obtaining and/or reviewing separately obtained history Performing a medically appropriate examination and/or evaluation Counseling and educating the patient/family/caregiver Referring and communicating with other health primary care pediatrician History of colon polyps [Z86.010] WALDEMAR MALLOY [facility] Physicians General Surgery [place] This note was created with the assistance of a speech recognition program. While intending to generate a timely document that accurately reflects the content of the visit, no guarantee can be provided that every grammatical or spelling mistake has been or will be identified or corrected. Thank you for your understanding. WALDEMAR Malloy 01/03/24 1155 documented in this encounter [facility] 10-29-2023 Evaluation note Encounter Date Diagnosis Assessment Notes Oct, Primary insomnia (ICD-10 - F51.01) Oct, Essential (primary) hypertension (ICD-10 - I10) [employer] Other 10-02-2023 Evaluation note* Encounter Date Diagnosis Assessment Notes Treatment Notes Treatment Clinical Notes Aug, Primary insomnia (ICD-10 - F51.01) Aug, Primary hypertension (ICD-10 - I10) [employer] Other 08-15-2023 Evaluation note* Encounter Date Diagnosis Assessment Notes Treatment Notes Treatment Clinical Notes Jun, Essential (primary) hypertension (ICD-10 - I10) Chronic problem - stable; refilled meds. Jun, Preoperative examination (ICD-10 - Z01.818) Uzma is in good health. I do not have labs from [facility], but barring any abnormalities she is low risk for upcoming knee replacement. Jun, Chronic kidney disease, stage 3a (ICD-10 - N18.31) Established with Nephrology - continue to monitor and keep bp controlled. [employer] Other 02-20-2023 Evaluation note* Encounter Date Diagnosis [...] F51.01) chronic problem. denies issues with medication. [employer] Other 02-02-2023 Evaluation note* Encounter Date Diagnosis Assessment Notes Treatment Notes Treatment Clinical Notes Dec, Primary hypertension (ICD-10 - I10) [employer] Other 11-27-2022 Evaluation note* Encounter Date Diagnosis [...] no improvement in 2 to 3 days [employer] Other 10-11-2022 Evaluation note* Encounter Date Diagnosis [...] negative. Kidney biopsy did not show glomerulonephritis [employer] Other 08-09-2022 Evaluation note* Encounter Date Diagnosis [...] for back pain. Patient stopped NSAIDs in 2016. Patient stated she is now taking Naprosyn [...] kidney biopsy to rule out lupus nephritis [facility] [employer] Other [id number] NoteHNO ID: [id number] Author: Errol Corbin MD Service: ? Author [...] Normal RADIOLOGY/OTHER STUDIES: 06/28/2021 Bilateral screening mammogram ([facility]) No significant suspicious findings in the right breast or left breast. Routine mammogram in 12 months recommended. 02/28/2021 Bone density DEXA ([facility]) Osteoporosis ASSESSMENT/PLAN: 1. Malignant neoplasm of left breast in female, estrogen receptor positive (HCC) - ICD9: 174.4, V86.0, ICD10: C50.412, Z17.0 (primary diagnosis) Stage IIB (pT2, N1mic, M0) ER/IL positive HER-2 negative left-sided breast cancer diagnosed November 2002. Status post left modified radical right mastectomy and lymph node dissection 12/01/2002 (Dr. Dinesh Gomez). Postop the patient received adjuva (more content not included)...[facility]04-05-2022 Miscellaneous Notes* Telephone Encounter - Corinne Bentley MA - 02/06/2022 11:[address]/sign lab orders for 02/15/22. Thanks. Corinne Reyes MA [facility] Diagnosis Malignant neoplasm of upper-outer quadrant of left breast in female, estrogen receptor positive (HCC)- Primary documented in this encounter [facility] noteNo assessment information availablePaulding County Hospital Work Phone: Evaluation noteNo InformationNort [employer] Other Evaluation note* Diagnosis History of colon polyps- Primary documented in this encounter [facility]* Diagnosis History of colon polyps- Primary documented in this encounter [facility] IncAppDynamicsHistory general Narrative - Reported* Type Description Date [...] HIP REPLACEMENT 2014 Hospitalization History SEE ABOVE [employer] Other InstructionsNot on filedocumented in this encounter [employer] Summary Purpose Family History Unknown Family Member [...] Recorded Date/ Time Advance Directives No June 12, 2 021 11:20am Latest Code Status on File Code Status Date Activated Date Inactivated Comments Full Code 06/24/2023 8:52 PM 06/26/2023 3:54 PM Chief Complaint and Reason for Visit Chief [...] managed by rheumatology * Lei Goyal MD, [facility] Additional Source Comments Source Comments (unrecognize d section and content) In the event this informatio n is protected by the Federal Confidentiality of Alcohol and Drug Abuse Patient Records regulations: The Federal rules restrict any use of the information to criminally investigate or prosecute any alcohol or drug abuse patient.[facility] the event this information is protected by the Federal Confidentiality of Alcohol and Drug Abuse Patient Records regulations: The Federal rules restrict any use of the information to criminally investigate or prosecute any alcohol or drug abuse patient.[facility] the event this information is protected by the Federal Confidentiality of Alcohol and Drug Abuse Patient Records regulations: The Federal rules restrict any use of the information to criminally investigate or prosecute any alcohol or drug abuse patient.[facility] INFORMATION SOURCE (unrecogn ized section and content) DATE CREATED AUTHOR 12/28/2021 [facility] DATE CREATED AUTHOR AUTHOR'S ORGANIZ ATION 02/16/2022 [facility] DATE CREATED AUTHOR AUTHOR'S ORGANIZ ATION 07/10/2022 [facility] DATE CREATED AUTHOR AUTHOR'S ORGANIZ ATION 08/04/2022 [facility] DATE CREATED AUTHOR AUTHOR'S ORGANIZ ATION 08/04/2022 [employer] DATE CREATED AUTHOR AUTHOR'S ORGANIZ ATION 02/24/2023 [facility] DATE CREATED AUTHOR AUTHOR'S ORGANIZ ATION 01/01/2024 [facility] EPIC DATE CREATED AUTHOR AUTHOR'S ORGANDENITA ATION 01/05/2024 [facility] Reason for Visit (unrecogniz ed section and content) Reason Comments Lab Orders Reason Comments Colon Cancer Screening 1 YEAR RECALL, [place] LONOSCOPY by DR REINOSO Care Teams (unrecognized sec tion and content) Profiling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 Relationship Specialty Start Date End Date Florinda Flowers MD [address] [place] [phone] PCP - General Family Practice 01/26/14 [...] Active Teetee Rizvi MD Attending Provider Active Profiling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 Relationship Specialty Start Date End Date Florinda Flowers MD [address] [place] [address] [id number] PCP - General 04/30/18 Profiling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 Relationship Specialty Start Date End Date Florinda Flowers MD [address] [place] [address] [id number] PCP - General 04/30/18 Goals (unrecognized section and content) Goals may [...] BE BASED ON THE PRIMARY CLINICAL RECORDS. [employer] provides no warranty or guarantee of the accuracy or completeness of information in this document.
[2024-02-05 06:37] VITALS: BP 162/91; PULSE 76; TEMP 36.3; O2SAT 97; BMI 28.6
--- NOTE | 2024-02-05 07:17 | PM.GSPRC ---
Date of procedure: 02/05/24 Indications for Procedure: history of colon polyps last colonoscopy November 2022 withtwo tubulovillous adenomas being removed Pre-op diagnosis: history of colon polyps Post-op diagnosis: other (colon polyps cecum ?2 was 25 mm, descending colon polyp 5 mm,sigmoid colon polyp 0.75 cm, rectosigmoid junction 5 mm) Procedure: colonoscopy hot snare polyp cecum ?2, fulguration cecum times one,hot snare descending colon,sigmoid colon, rectosigmoid junction Findings: colon polyps ?5 as above Anesthesia: MAC Surgeon: Benjamin Pearson Procedure Summary: PROCEDURE: The patient was taken to the Endoscopy Suite, placed in the left lateral recumbent position, given IV sedation as above. A rectal digital exam was performed. The sphincter tone was found to be normal. No rectal masses were appreciated. The Revolve. video colonoscope was advanced under direct visualization to the rectum, sigmoid colon, descending colon, transverse colon and ascending colon to the ileocecal valve. The underside of the valve was seen. appendiceal lumen was visualized. There were two small polyps in the cecum which were snared and retrieved and another one was hot cauterized and fulgerized. Hemostasis was maintained. The scope was slowly withdrawn with air being desufflated as it was withdrawn. there was another polyp in the descending colon one in the sigmoid colon and one in the rectosigmoid area which were hot snared and removed. Hemostasis was maintained. The patient tolerated the procedure well and went to the Recovery Area in satisfactory condition. I recommend she will return for surveillance colonoscopy in three years depending on pathology. Estimated blood loss (mL): 0 Specimens: <del>colon</del> <del>polyps</del> <del>cecum,</del> <del>descending</del> <del>colon,</del> <del>sigmoid</del> <del>colon,</del> <del>rectosigmoid</del> <del>junction</del> Complications: No Condition: stable Disposition: PACU
[2024-02-05] MEDS: LACTATED RINGER'S SOLUTION 1,000 ML 50 ML IV (07:22)
[2024-02-05 08:03] VITALS: BP 104/57; PULSE 58; TEMP 36.3; O2SAT 95
[2024-02-05 08:18] VITALS: BP 119/61; PULSE 58; O2SAT 93
[2024-02-05 08:33] VITALS: BP 125/66; PULSE 58; O2SAT 93
[2024-02-05 08:48] VITALS: BP 124/67; PULSE 59; O2SAT 97
== END 2024-02-05 08:48 | disposition home or self-care (01) ==
PROVIDERS: PCP Family Medicine; Visit Provider Surgery
PROC: (CPT 45385; principal; 2024-02-05 07:30)
DX: Z86.010 Personal history of colon polyps (principal); D12.5 Benign neoplasm of sigmoid colon; D12.0 Benign neoplasm of cecum; K63.5 Polyp of colon; I10 Essential (primary) hypertension; M19.90 Unspecified osteoarthritis, unspecified site; Z85.3 Personal history of malignant neoplasm of breast; M85.80 Other specified disorders of bone density and structure, unspecified site; Z90.10 Acquired absence of unspecified breast and nipple; Z96.653 Presence of artificial knee joint, bilateral; Z96.643 Presence of artificial hip joint, bilateral; Z87.891 Personal history of nicotine dependence
CPT/HCPCS: 45385; 45388; 88305; 99999; J1094; J2704

== ENCOUNTER 2024-04-30 11:17 | Outpatient (OUT) | payer MEDICARE, SELFPAY ==
--- NOTE | 2024-04-30 11:22 | XR_ITS ---
The [place] [address] Patient Name: MIKE ALFRED MRN: [id number] date: 1955 Sex: F Assigned Patient Location: [facility] Current Patient Location: [facility] Accession/Order Number: [id number] Exam Date: 04/30/2024 11:27 Report Date: 05/01/2024 00:04 At the request of: FLORINDA FLOWERS Procedure: XR lumbar spine 2-3V EXAM: XR lumbar spine 2-3V CLINICAL INDICATION: pain in left lumbar region of back COMPARISON: None TECHNIQUE: 2 views of the lumbar spine obtained FINDINGS: There are 5 nonrib-bearing lumbar-type vertebra. Posterior spinal fusion change at L3-L5 without overt complication. Vertebral body heights are maintained without evidence for acute fracture. No subluxations. Moderate multilevel degenerative changes of the lumbar spine. XR/XR lumbar spine 2-3V IMPRESSION: Postoperative and multilevel degenerative changes of the lumbar spine without evidence for complication or acute fracture Electronically authenticated by: SOFIA BARNES Date: 05/01/2024 00:04
== END 2024-04-30 11:18 | disposition home or self-care (01) ==
LOC: RAD 11:19
PROVIDERS: PCP Family Medicine; Visit Provider Family Medicine
DX: M54.50 Low back pain, unspecified (principal); M51.36 Other intervertebral disc degeneration, lumbar region
CPT/HCPCS: 72100

== ENCOUNTER 2024-09-03 13:34 | Outpatient (OUT) | payer MEDICARE, SELFPAY ==
--- NOTE | 2024-09-03 14:12 | ECG_ITS ---
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
== END 2024-09-03 13:35 | disposition home or self-care (01) ==
LOC: PST 13:38
PROVIDERS: PCP Family Medicine; Visit Provider Surgery
DX: Z01.810 Encounter for preprocedural cardiovascular examination (principal); L72.0 Epidermal cyst
CPT/HCPCS: 93005

== ENCOUNTER 2024-09-08 12:10 | Day surgery (SDC) | payer MEDICARE, SELFPAY ==
[2024-09-03 14:20] VITALS: BP 145/86; PULSE 78; TEMP 36.1; O2SAT 97; BMI 29.2
--- NOTE | 2024-09-03 14:51 | PC.NURSE ---
1450: called unit to discuss pts EKG reults, due to pt not having any cardiac symptoms or shortness of breath was not concerned regarding the EKG. pt then discharged home from PAT appointment.
[2024-09-08] VITALS (9 sets, daily range): BP systolic 126–181; BP diastolic 76–98; PULSE 60–68; TEMP 36.1; O2SAT 92–97; BMI 29.2
[2024-09-08] MEDS: CLINDAMYCIN PHOSPHATE/D5W 600 MG/50 ML PREMIX 100 MG IV (13:10)
[2024-09-08] MEDS: 0.9 % SODIUM CHLORIDE 500 ML 50 ML IV (13:10)
[2024-09-08] MEDS: LIDOCAINE HCL 1%-EPINEPHRINE 1:100,000 20 ML MDV 10 ML INJ (13:30)
[2024-09-08] MEDS: BACITRACIN OINTMENT 28.4 GM TUBE 1 APPLIC TOPICAL (13:41)
--- NOTE | 2024-09-08 13:41 | P.GSPRC_ITS ---
Date of procedure: 09/08/24 Indications for Procedure: inclusion cyst left posterior scalp Pre-op diagnosis: Inclusion cyst left posterior scalp Post-op diagnosis: same as pre-op Procedure: Excision inclusion cyst left posterior scalp 2.5 cm Intermediate closure 2.5 cm scalp Findings: Inclusion cyst Anesthesia: MAC Surgeon: Benjamin Pearson Procedure Summary: 68-year-old female presents for excision of an inflamed inclusion cyst in the left posterior scalp. She was seen in the office less than a week ago and it was not inflamed but today was very reddened. Sterile prep and drape was carried out after the patient was taken to the OR and given sedation and the patient was placed in right lateral decubitus position. 1% Xylocaine with epinephrine 10 cc used anesthetize area locally with an elliptical incision was made over the inflamed cyst and it drained and the ellipse of skin and any tissue within the cavity was removed and submitted for pathology but the cyst had ruptured and partially disintegrated. The wound was then debrided with sharp scissors and hemostasis was maintained and then the wound was closed with Vicryl suture in interrupted fashion and the skin was closed with 3-0 nylon suture in a running baseball stitch. Sterile dressing was placed. Sponge and instrument counts were correct. Carton Forming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: Student Dr. Nery Reyes Estimated blood loss (mL): 1 Specimens: Remnants of inclusion cyst Complications: No Condition: stable Disposition: PACU
== END 2024-09-08 15:00 | disposition home or self-care (01) ==
PROVIDERS: PCP Family Medicine; Visit Provider Surgery
PROC: (CPT 11423; principal; 2024-09-08 13:00)
DX: L72.0 Epidermal cyst (principal); L08.89 Other specified local infections of the skin and subcutaneous tissue; Z85.3 Personal history of malignant neoplasm of breast; Z90.12 Acquired absence of left breast and nipple; Z96.643 Presence of artificial hip joint, bilateral; Z96.651 Presence of right artificial knee joint; Z87.891 Personal history of nicotine dependence; I10 Essential (primary) hypertension; E78.5 Hyperlipidemia, unspecified
CPT/HCPCS: 11423; 88304

== ENCOUNTER 2025-01-26 09:34 | Outpatient (OUT) | payer MEDICARE, SELFPAY ==
--- NOTE | 2025-01-26 09:44 | MR_ITS ---
The [address] [address] Patient Name: MIKE ALFRED MRN: [id number] date: 1955 Sex: F Assigned Patient Location: MRI Current Patient Location: MRI Accession/Order Number: [id number] Exam Date: 01/26/2025 13:58 Report Date: 01/26/2025 14:01 At the request of: MC AHUJA DO Procedure: MR head/brain wo con EXAMINATION: MRI OF THE BRAIN WITHOUT CONTRAST CLINICAL HISTORY: Memory Loss COMPARISON: None TECHNIQUE: Multiecho, multiplanar imaging of the brain was performed without enhancement. FINDINGS: No evidence of restricted diffusion is an diffusion-weighted imaging. No evidence of blood products are seen on T2 Star imaging. Cortical atrophy with moderate chronic microvascular ischemic changes. This appears to extend into the eitan. Cerebellum appears grossly unremarkable. Intraorbital contents appear unremarkable. Right maxillary sinus disease. Midline structures appear unremarkable. MR/MR head/brain wo con IMPRESSION: NO ACUTE PROCESS. CORTICAL ATROPHY WITH MODERATE CHRONIC MICROVASCULAR ISCHEMIC CHANGES. Impression dictated by: Maria Victoria Francis Jr.OKaykay01/26/2025 2:01 PM [facility]ation [facility] Electron[facility] authenticated by: [id number] Y Date: 01/26/2025 14:01
[2025-01-26 12:28] LABS: Thyroid Stimulating Hormone 1.834 uIU/mL (0.358-3.740)
[2025-01-27 04:07] LABS: Vitamin B12 325 pg/mL (232-1245)
== END 2025-01-26 09:35 | disposition home or self-care (01) ==
LOC: MRI 09:36
PROVIDERS: PCP Family Medicine; Visit Provider Psychiatry & Neurology Neurology
DX: R41.3 Other amnesia (principal)
CPT/HCPCS: 36415; 70551; 82607; 82746; 84443

== ENCOUNTER 2025-08-20 11:06 | Outpatient (OUT) | payer MEDICARE, SELFPAY ==
--- OUTSIDE RECORDS SUMMARY | 2025-08-20 09:15 | XMS_ITS | Encounter Summary ---
Author Organization [facility] Address [address] [place] [address] Care Team Providers Care Executive Sales Assistant Name Role Phone Grace Dyer MD Primary Care Provider [phone] Britni Parry DO Unavailable [phone] Reason for Visit * Reason Comments Pain Encounter Details Date Type Department Care Team (Late Contact Info) Description 08/20/2025 9:15 AM EDT Office Visit [facility] [place] [place] [address] Balta Milton PA [address] [place] [address] Acute right hip pain (Primary Dx); History of total right hip replacement; Right hip pain; Acute pain of left shoulder; Polyarthralgia Social History Tobacco Use Types Packs/Day Years Used Date Smoking Tobacco: Never Smokeless Tobacco: Never Alcohol Use Standard Drinks/Week Comments Not Currently 0 (1 standard drink = 0.6 oz pur e alcohol) Comments Unknown Sex and Gender Information Value Date Recorded Sex Assigned at Not on file Legal Sex Female 8:13 PM EDT Gender Identity Not on file Sexual Orientation Not on file documented as of this encounter Plan of Treatment Upcoming Encounters Date Type Department Care Team (Late Contact Info) Description 09/03/2025 10:45 AM EDT Office Visit [facility] [place] [address] Balta Milton PA [address] [place] [address] Pending Results Name Type Priority Associated Diagnoses Date /Time XR hip right 2 or 3 views Imaging Routine Right hip pain 08/20/2025 9:28 AM EDT Scheduled Orders Name Type Priority Associated Diagnoses Orde r Schedule Rheumatoid factor Lab Routine Polyarthralgia Expected: 08/20/2025 (Approximate), Expires: 08/20/2026 WADE Lab Routine Polyarthralgia Expected: 08/20/2025 (Approximate), Expires: 08/20/2026 LYME DISEASE ANTIBODY (IGG), IMMUNOBLOT Lab Routine Polyarthralgia Expected: 08/20/2025 (Approximate), Expires: 08/20/2026 Uric acid Lab Routine Polyarthralgia Expected: 08/20/2025 (Approximate), Expires: 08/20/2026 SYSTEMIC LUPUS ERYTHEMATOSUS (SLE), DISEASE ACTIVITY PANEL Lab Routine Polyarthralgia Expected: 08/20/2025 (Approximate), Expires: 08/20/2026 C-reactive protein Lab Routine Polyarthralgia Expected: 08/20/2025 (Approximate), Expires: 08/20/2026 Sedimentation rate, automated Lab Routine Polyarthralgia Expected: 08/20/2025 (Approximate), Expires: 08/20/2026 CBC and differential Lab Routine Polyarthralgia Expected: 08/20/2025 (Approximate), Expires: 08/20/2026 HLA-B27 antigen Lab Routine Polyarthralgia Expected: 08/20/2025 (Approximate), Expires: 08/20/2026 documented as of this encounter Visit Diagnoses Diagnosis Acute right hip pain- Primary History of total right hip replacement Right hip pain Pain in joint, pelvic region and thigh Acute pain of left shoulder Polyarthralgia Pain in joint, multiple sites documented in this encounter Care Teams Executive Sales Assistant Relationship Specialty Start Date End Date Grace Dyer MD [address] [place] [phone] PCP - General Family Medicine 05/21/23 Britni Parry DO [address] [place] [address] Referring Physician Neurology 01/14/25 documented as of this encounter
--- OUTSIDE RECORDS SUMMARY | 2025-08-20 09:30 | XMS_ITS | Encounter Summary ---
Author Organization [facility] Address [address] [facility] [address] Care Team Providers Care Process Manufacturing Engineer Name Role Phone Grace Dyer MD Primary Care Provider [phone] Britni Parry DO Unavailable [phone] Encounter Details Date Type Department Care Team (Late st Contact Info) Description 08/20/2025 9:30 AM EDT Ancillary Procedure [facility] [address] [place] [address] Arrived Social History Tobacco Use Types Packs/Day Years [...] Description 09/03/2025 10:45 AM EDT Office Visit [facility] [address] [place] [address] Balta Milton PA [address] [place] [address] Pending Results Name Type Priority Associated Diagnoses Date /Time XR hip right 2 or 3 views Imaging Routine Right hip pain 08/20/2025 9:28 AM EDT documented as of this encounter Visit Diagnoses Not on filedocumented in this encounter Care Teams Process Manufacturing Engineer Relationship Specialty Start Date End Date Grace Dyer MD [address] [facility] [place] [address] PCP - General Family Medicine 05/21/23 Britni Parry DO [address] [place] [address] Referring Physician Neurology 01/14/25 documented as of this encounter
--- OUTSIDE RECORDS SUMMARY | 2025-08-20 11:10 | XMS_ITS | Encounter Summary ---
Author Organization [facility] Address [address] [facility] [place] [address] Care Team Providers Care Pmo Business Analyst Name Role Phone Grace Dyer MD Primary Care Provider [phone] Britni Parry DO Unavailable [phone] Encounter Details Date Type Department Care Team (Late st Contact Info) Description 06/12/2023 External Result Encounter [facility] [address] [facility] [address] [place] [address] Jr. Arik Adrian DO [address] [facility] [address] [place] [address] Social History Tobacco Use Types Packs/Day Years Used Date Smoking Tobacco: Never Smokeless Tobacco: Never Alcohol Use Standard Drinks/Week Comments Yes 0 (1 standard drink = 0.6 oz pur e alcohol) Comments Unknown Sex and Gender Information Value Date Recorded Sex Assigned at Not on file Legal Sex Female 8:13 PM EDT Gender Identity Not on file Sexual Orientation Not on file documented as of this encounter Plan of Treatment Upcoming Encounters Date Type Department Care Team (Late st Contact Info) Description 09/03/2025 10:45 AM EDT Office Visit [facility] [address] [place] [address] Balta Milton, PA [address] [place] [address] documented as of this encounter Procedures Procedure Name Priority Date/Time Associated Diagnosis Comments XR LOWER EXTREMITY LEG LENGTH EVALUATION 06/12/2023 6:02 AM EDT documented in this encounter Results * XR lower extremity leg length evaluation (06/12/2023 6:02 AM EDT) Anatomical Region Laterality Modality Lower Extremities Radiographic I maging 06/12/2023 6:02 AM EDT Narrative 06/12/2023 6:01 AM EDT THIS EXAM WAS PERFORMED AT [facility] LEG LENGTH STUDY HISTORY: Preop, no measurements needed COMPARISON: None FINDINGS: Bilateral hip arthroplasty with no hardware complications. Partially visualized postsurgical changes in the lower lumbar spine. Previous left knee arthroplasty. Right knee osteoarthritis most prominent in the medial femorotibial compartment. Bilateral genu valgus. IMPRESSION: Leg length study performed for preoperative planning purposes. Finalized by Dallin Holland MD on 06/12/2023 6:01 AM Procedure Note Radiology, Radiologist, MD - 06/12/2023 THIS EXAM WAS PERFORMED AT [facility] LEG LENGTH STUDY HISTORY: Preop, no measurements needed COMPARISON: None FINDINGS: Bilateral hip arthroplasty with no hardware complications. Partiallyvisualized postsurgical changes in the lower lumbar spine. Previous leftknee arthroplasty. Right knee osteoarthritis most prominent in the medialfemorotibial compartment. Bilateral genu valgus. IMPRESSION: Leg length study performed for preoperative planning purposes. Finalized by Dallin Holland MD on 06/12/2023 6:01 AM [facility] Arik Adrian DO IMG XR PROCEDURES Final Result documented in this encounter Visit Diagnoses Not on filedocumented in this encounter Care Teams Pmo Business Analyst Relationship Specialty Start Date End Date Grace Dyer MD [address] [place] [address] PCP - General Family Medicine 05/21/23 Britni Parry DO [address] [place] [address] Referring Physician Neurology 01/14/25 documented as of this encounter
--- OUTSIDE RECORDS SUMMARY | 2025-08-20 11:10 | XMS_ITS | Encounter Summary ---
Author Organization [facility] Address [address] [place] [address] Phone Care Team Providers Care Restaurant Operations Manager Name Role Phone Grace Dyer MD Primary Care Provider [phone] Encounter Details Date Type Department Care Team (Late st Contact Info) Description 07/31/2022 Orders Only [facility] [address] [place] [address] Conversion, Onbase Social History Tobacco Use Types Packs/Day Years Used Date Smoking Tobacco: Never Assessed Comments Unknown Sex and Gender Information Value Date Recorded Sex Assigned at Not on file Legal Sex Female 8:46 PM EST Gender Identity Not on file Sexual Orientation Not on file documented as of this encounter Plan of Treatment Scheduled Orders Name Type Priority Associated Diagnoses Orde r Schedule OUTSIDE LAB SCAN Lab Ordered: 07/31/2022 documented as of this encounter Visit Diagnoses Not on filedocumented in this encounter Care Teams Restaurant Operations Manager Relationship Specialty Start Date End Date Grace Dyer MD [address] [place] [address] [address] [place] [id number] PCP - General 11/04/20 documented as of this encounter
--- OUTSIDE RECORDS SUMMARY | 2025-08-20 11:10 | XMS_ITS | Encounter Summary ---
Author Organization [facility] Address [address] [place] [address] Care Team Providers Care Construction Tech Name Role Phone Grace Dyer MD Primary Care Provider [phone] Britni Parry DO Unavailable [phone] Encounter Details Date Type Department Care Team (Late st Contact Info) Description 06/17/2023 [facility] [address] [place] [address] Balta Milton PA [address] [place] [address] Social History Tobacco Use Types Packs/Day Years [...] Description 09/03/2025 10:45 AM EDT Office Visit [facility] [address] [place] [address] Balta Milton PA [address] [place] [address] documented as of this encounter Visit Diagnoses Not on filedocumented in this encounter Care Teams Construction Tech Relationship Specialty Start Date End Date Grace Dyer MD [address] [facility] [place] [address] PCP - General Family Medicine 05/21/23 Britni Parry DO [address] [place] [address] Referring Physician Neurology 01/14/25 documented as of this encounter
--- OUTSIDE RECORDS SUMMARY | 2025-08-20 11:10 | XMS_ITS | Encounter Summary ---
Author Organization [facility] Address [address] [place] [address] Phone Care Team Providers Care Core Fitter Name Role Phone Grace Dyer MD Primary Care Provider [phone] Encounter Details Date Type Department Care Team (Late st Contact Info) Description 04/15/2020 Orders Only [facility] [address] [place] [address] Conversion, Onbase Social History Tobacco Use Types [...] r Schedule OUTSIDE LAB SCAN Lab Ordered: 04/15/2020 documented as of this encounter Visit Diagnoses Not on filedocumented in this encounter Care Teams Core Fitter Relationship Specialty Start Date End Date Grace Dyer MD [address] [place] [address] [address] [place] [id number] PCP - General 11/04/20 documented as of this encounter
--- OUTSIDE RECORDS SUMMARY | 2025-08-20 11:10 | XMS_ITS | Encounter Summary ---
Author Organization [facility] Address [address] [facility] [place] [address] Care Team Providers Care Stretch Box Tender Name Role Phone Grace Dyer MD Primary Care Provider [phone] Britni Parry DO Unavailable [phone] Encounter Details Date Type Department Care Team (Late st Contact Info) Description 06/11/2023 Abstract [facility] [address] [facility] [address] [place] [address] Danuta Batista, DO [address] [place] [facility]. [address] [phone] Social History Tobacco Use Types Packs/Day Years Used Date Smoking Tobacco: Never Smokeless Tobacco: Never Tobacco Cessation:Counseling Given: Not Answered Alcohol Use Standard Drinks/Week Comments Yes 0 [...] Description 09/03/2025 10:45 AM EDT Office Visit [facility] [address] [place] [address] Balta Milton PA [address] [place] [address] documented as of this encounter Visit Diagnoses Not on filedocumented in this encounter Care Teams Stretch Box Tender Relationship Specialty Start Date End Date Grace Dyer MD [address] [place] [address] PCP - General Family Medicine 05/21/23 Britni Parry DO [address] [place] [address] Referring Physician Neurology 01/14/25 documented as of this encounter
--- OUTSIDE RECORDS SUMMARY | 2025-08-20 11:10 | XMS_ITS | Clinical Summary ---
Author Organization [facility] Address [address] [place] [address] Phone Care Team Providers Care Sulphate Tester Name Role Phone Grace Dyer MD Primary Care Provider [phone] Allergies Active Allergy Reactions Criticality Noted Date Comments Oxycodone-Acetaminophen Unknown 06/26/2023 Penicillins Unknown 06/26/2023 Sulfur Unknown 06/26/2023 Terbinafine Unknown 06/26/2023 Medications alendronate (Fosamax) 70 mg tablet Take 1 tablet (70 mg) by mouth 1 (one) time per week. 02/16/2022 Active amLODIPine (Norvasc) 5 mg tablet Take 1 tablet (5 mg) by mouth once daily. 05/31/2022 Active hydrALAZINE (Apresoline) 50 mg tablet Take 1 tablet (50 mg) by mouth once daily. 05/31/2022 Active metoprolol tartrate (Lopressor) 25 mg tablet Take 1 tablet (25 mg) by mouth 2 times a day. 04/27/2022 Active predniSONE (Deltasone) 5 mg tablet Take 2 tablets (10 mg) by mouth once daily. OR DIRECTED 02/01/2022 Active rosuvastatin (Crestor) 40 mg tablet Take 1 tablet (40 mg) by mouth once daily. 05/31/2022 Active zolpidem (Ambien) 10 mg tablet Take 1 tablet (10 mg) by mouth as needed at bedtime. 05/31/2022 Active Active Problems Problem Noted Date Diagnosed Date Essential hypertension 06/26/2023 Hyperlipidemia, unspecified 06/26/2023 Sinus bradycardia 06/26/2023 Overweight 06/26/2023 Immunizations Immunization Administration Dates Next Due Influenza, Unspecified 08/04/2019,2017,08/04/2017,09/10 Influenza, trivalent, adjuvanted 08/21/2021 Moderna COVID-19 vaccine, bi valent, blue cap/robertson label *Check age/dose* 10/17/2022 Novel [id number], preservative-free 09/10/2009 Pneumococcal polysaccharide vaccine, 23-valent, age 2 years and older (PNEUMOVAX 23) 06/12/2021 Family History Medical History Relation Name Comments Hypertension Brother Hypertension Father Hypertension Sister MYCARDIAL INFARCTION Sister ACUTE Other Sister H/O HEART ARTER Y STENT Relation Name Status Comments Brother Father Sister Social History Tobacco Use Types Packs/Day Years Used Date Smoking Tobacco: Never Assessed Tobacco Cessation:Counseling Given: Not Answered Comments Unknown Sex and Gender Information Value Date Recorded Sex Assigned at Not on file Legal Sex Female 8:46 PM EST Gender Identity Not on file Sexual Orientation Not on file Last Filed Vital Signs Vital Sign Reading Time Taken Comments Blood Pressure 120/78 07/20/2022 1:49 PM EDT Pulse 66 07/20/2022 1:49 PM EDT Temperature - - Respiratory Rate - - Oxygen Saturation - - Inhaled Oxygen Concentration - - Weight - - Height 167.6 cm (5' 6 ) 07/20/2022 1:49 PM EDT Body Mass Index - - Plan of Treatment Health Maintenance Due Date Last Done Comments CT Colonography 1955 Colonoscopy 1955 Colorectal Cancer Screening 1955 FIT-DNA (Cologuard) 1955 FIT 1955 Lipid Panel 1955 Sigmoidoscopy 1955 Hepatitis C Screening 1973 DTaP/Tdap/Td Vaccines (1 - Tdap) 1977 Zoster Vaccines (1 of 2) 2005 MMR Vaccines (1 of 1 - Standard series) 10/08/2009 Pneumococcal Vaccine (2 of 2 - PCV) 06/12/2022 06/12/2021 Bone Density Scan 02/28/2023 02/28/2021 Medicare Annual Wellness Visit (AWV) 12/25/2023 12/24/2022, 06/12/2021, 06/12/2021 Influenza Vaccine (#1) 2025 , 08/04/2019, 08/04/2018, Additional history exists COVID-19 Vaccine (2024- season) 2025 10/17/2022, 08/28/2021, 01/10/2021, Additional history exists RSV High Risk: (Elderly (60+) or Population) (1 - 1-dose 75+ series) 2030 HIB Vaccines Aged Out No longer eligi ble based on patient's age to complete this topic HPV Vaccines Aged Out No longer eligi ble based on patient's age to complete this topic Hepatitis A Vaccines Aged Out No long er eligible based on patient's age to complete this topic Hepatitis B Vaccines Aged Out No long er eligible based on patient's age to complete this topic IPV Vaccines Aged Out No longer eligi ble based on patient's age to complete this topic Meningococcal Vaccine Aged Out No aline bonilla eligible based on patient's age to complete this topic Rotavirus Vaccines Aged Out No longer eligible based on patient's age to complete this topic Insurance MEDICARE PART A AND B [facility] Care Teams Sulphate Tester Relationship Specialty Start Date End Date Grace Dyer MD [address] [place] [address] [place] [address] PCP - General 11/04/20
--- OUTSIDE RECORDS SUMMARY | 2025-08-20 11:10 | XMS_ITS | Encounter Summary ---
Author Organization [facility] Address [address] [place] [address] Phone Care Team Providers Care Stucco Applicator Name Role Phone Grace Dyer MD Primary Care Provider [phone] Encounter Details Date Type Department Care Team (Late st Contact Info) Description 03/26/2019 Orders Only [facility] [address] [place] [address] Conversion, Onbase Social History Tobacco Use Types [...] r Schedule OUTSIDE LAB SCAN Lab Ordered: 03/26/2019 documented as of this encounter Visit Diagnoses Not on filedocumented in this encounter Care Teams Stucco Applicator Relationship Specialty Start Date End Date Grace Dyer MD [address] [place] [address] [address] [place] [id number] PCP - General 11/04/20 documented as of this encounter
--- OUTSIDE RECORDS SUMMARY | 2025-08-20 11:10 | XMS_ITS | Encounter Summary ---
Author Organization [facility] Address [address] [place] [address] Care Team Providers Care Zanjero Name Role Phone Grace Dyer MD Primary Care Provider [phone] Britni Parry DO Unavailable [phone] Encounter Details Date Type Department Care Team (Late st Contact Info) Description 08/07/2023 Abstract [facility] [address] [facility] [place] [place] [address] Fausto Calvillo NP [address] [place] [address] Social History Tobacco Use Types Packs/Day Years [...] Description 09/03/2025 10:45 AM EDT Office Visit [facility] [address] [place] [address] Balta Milton PA [address] [place] [address] documented as of this encounter Visit Diagnoses Not on filedocumented in this encounter Care Teams Zanjero Relationship Specialty Start Date End Date Grace Dyer MD [address] [facility] [place] [address] PCP - General Family Medicine 05/21/23 Britni Parry DO [address] [place] [address] Referring Physician Neurology 01/14/25 documented as of this encounter
--- OUTSIDE RECORDS SUMMARY | 2025-08-20 11:10 | XMS_ITS | Encounter Summary ---
Author Organization [facility] Address [address] [place] [address] Care Team Providers Care Electrician Supervisor Airplane Name Role Phone Grace Dyer MD Primary Care Provider [phone] Britni aPrry DO Unavailable [phone] Encounter Details Date Type Department Care Team (Late st Contact Info) Description 07/10/2023 Abstract [facility] [address] [facility] [place] [address] Fausto Calvillo NP [address] [place] [address] Social History Tobacco Use Types [...] Description 09/03/2025 10:45 AM EDT Office Visit [facility] [address] [place] [address] Balta Milton PA [address] [place] [address] documented as of this encounter Visit Diagnoses Not on filedocumented in this encounter Care Teams Electrician Supervisor Airplane Relationship Specialty Start Date End Date Grace Dyer MD [address] [facility] [address] PCP - General Family Medicine 05/21/23 Britni Parry DO [address] [place] [address] Referring Physician Neurology 01/14/25 documented as of this encounter
--- OUTSIDE RECORDS SUMMARY | 2025-08-20 11:10 | XMS_ITS | Encounter Summary ---
Author Organization [facility] Address [address] [place] [id number] Care Team Providers Care It Coordinator Name Role Phone Grace Dyer MD Primary Care Provider Source Comments In the event this information is protected by the Federal Confidentiality of Alcohol and Drug AbusePatient Records regulations: The Federal rules restrict any use of the information to criminally investigate or prosecute any alcohol or drug abuse patient.[facility] Encounter Details Date Type Department Care Team (Latest Contact Info) Description 02/02/2021 H&P External-NonCCF Provider, External, PA-C Do not enter address information under generic External Provider. Social History Tobacco Use Types Packs/Day Years Used Date Smoking Tobacco: Former Cigarettes 1 3 Smokeless Tobacco: Never Alcohol Use Standard Drinks/Week Comments Yes 0 (1 standard drink = 0.6 oz pur e alcohol) Comments No Sex and Gender Information Value Date Recorded Sex Assigned at Not on file Legal Sex Female 10:05 AM EST Gender Identity Not on file Sexual Orientation Not on file documented as of this encounter Functional Status * Are you deaf or do you have serious difficulty hearing? Answer Date of Assessment Author No 01/27/2015 1:41 PM Kevin Samuels MA * Are you blind or do you have serious difficulty seeing, even when wearing glasses? Answer Date of Assessment Author No 01/27/2015 1:41 PM Kevin Samuels MA * Do you have serious difficulty walking or climbing stairs? Answer Date of Assessment Author No 01/27/2015 1:41 PM Kevin Samuels MA * Do you have difficulty dressing or bathing? Answer Date of Assessment Author No 01/27/2015 1:41 PM Kevin Samuels MA * Because of a physical, mental, or emotional condition, do you have difficulty doing errands alone such as visiting a doctor's office or shopping? Answer Date of Assessment Author No 01/27/2015 1:41 PM Kevin Samuels MA documented as of this encounter Mental Status * Because of a physical, mental, or emotional condition, do you have serious difficulty concentrating, remembering, or making decisions? Answer Entry Date Author No 01/27/2015 1:41 PM Kevin Samuels MA documented in this encounter Plan of Treatment Not on file documented as of this encounter Visit Diagnoses Not on filedocumented in this encounter Care Teams It Coordinator Relationship Specialty Start Date End Date Grace Dyer MD [address] [place] [phone] PCP - General Family Medicine 01/26/14 documented as of this encounter
--- OUTSIDE RECORDS SUMMARY | 2025-08-20 11:11 | XMS_ITS | Clinical Summary ---
Author Organization [facility] Address [address] [place] [address] Care Team Providers Care Hardboard Coating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 Name Role Phone Grace Dyer MD Primary Care Provider [phone] Britni Parry DO Unavailable [phone] Allergies Active Allergy Reactions Criticality Noted Date Comments Fentanyl Unknown High 02/15/2021 Leg Weakness Oxycodone-Acetaminophen GI intolerance 10/09/20 05 Penicillins Rash Low 02/16/2021 Sulfa Antibiotics Rash Low 05/21/2023 Terbinafine Rash Low 04/30/2018 Medications aspirin (Aspirin EC Low Strength) 81 MG EC tablet 1 capsule 1 (one) time each day at the same time Active cholecalcifero l (Vitamin D3) 200 Unit tablet split tablet in the morning. Active Fosamax 70 MG tablet Active amLODIPine (Norvasc) 5 MG tablet Take 5 mg by mouth Daily Active coenzyme Q-10 200 MG capsule Take 200 mg by mouth in the morning. Active metoprolol tartrate (Lopressor) 25 MG tablet every 12 (twelve) hours Active rosuvastatin (Crestor) 40 MG tablet 1 (one) time each day at the same time Active hydrALAZINE (Apresoline) 50 MG tablet every 8 (eight) hours Active doxepin (SINEquan) 10 MG capsuleIndicat ions:Primary insomnia 1-2 po q hs 60 capsule 2 5 Active cyclobenzaprin e (Flexeril) 10 MG tabletIndicati ons:Other insomnia,Other chronic pain Take 1/2-1 at bedtime 30 tablet 2 5 Active predniSONE (Deltasone) 20 MG tabletIndicati ons:Acute right hip pain,Acute pain of left shoulder,Polya rthralgia Take 2 tablets (40 mg) by mouth Daily for 5 days, THEN 1 tablet (20 mg) Daily for 5 days. Take with food. 15 tablet 5 08/30/20 25 Active traMADol (Ultram) 50 MG tabletIndicati ons:Acute right hip pain,Acute pain of left shoulder,Polya rthralgia Take 1 tablet (50 mg) by mouth every 8 (eight) hours if needed for severe pain for up to 4 days 12 tablet 5 08/24/20 25 Active predniSONE (Deltasone) 5 MG tablet Take 5 mg by mouth in the morning. 2 08/20/20 Discontinued Active Problems Problem Noted Date Diagnosed Date Artificial knee joint present 06/18/2023 Internal derangement of left knee 06/18/2023 Malignant neoplasm of upper-outer quadrant of fe male breast 06/18/2023 Osteoarthritis of knee 06/18/2023 Status post total left knee replacement 06/18/20 23 Open wound of abdominal wall, anterior, complica ludin 10/01/2005 Personal history of malignant neoplasm of breast 08/13/2005 Encounters Date Type Department Care Team Description 08/20/2025 9:30 AM EDT Ancillary Procedure [facility] [address] [address] [place] [address] Arrived 08/20/2025 9:15 AM EDT Office Visit [place] [id number] [place] [place] [address] Balta Milton PA Acute right hip pain (Primary Dx); History of total right hip replacement; Right hip pain; Acute pain of left shoulder; Polyarthralgia 08/20/2025 Bamboo flowsheet [facility] [place] [address] [place] [phone] Balta Milton PA 08/20/2025 Travel from Last 3 Months Immunizations Immunization Administration Dates Next Due Influenza, seasonal, injectable 08/04/2019 Influenza, trivalent, adjuvanted 08/21/2021 Moderna Bivalent Booster Vaccination 10/17/2022 Novel [id number], preservative-free 09/10 Pneumococcal Polysaccharide PPSV23 06/12/2021 SARS-CoV-2, Unspecified 01/10/2021,12/12/2020 Family History Medical History Relation Name Comments Hypertension Father Emphysema Mother Hypertension Mother Relation Name Status Comments Brother 1 brother Daughter Alive 2 daughters Father Mother Mother's Sister Alive Sister 2 sisters Son Alive 2 sons Social History Tobacco Use Types Packs/Day Years Used Date Smoking Tobacco: Never Smokeless Tobacco: Never Tobacco Cessation:Counseling Given: Not Answered Alcohol Use Standard Drinks/Week Comments Not Currently 0 (1 standard drink = 0.6 oz pur e alcohol) Comments Unknown Sex and Gender Information Value Date Recorded Sex Assigned at Not on file Legal Sex Female 8:13 PM EDT Gender Identity Not on file Sexual Orientation Not on file Last Filed Vital Signs Vital Sign Reading Time Taken Comments Blood Pressure 169/93 02/16/2025 11:14 AM EDT Pulse 58 02/16/2025 11:14 AM EDT Temperature - - Respiratory Rate - - Oxygen Saturation 95% 01/14/2025 11:17 AM EDT Inhaled Oxygen Concentration - - Weight 85.7 kg (189 lb) 02/16/2025 11:14 AM EDT Height 167.6 cm (5' 6 ) 02/16/2025 11:14 AM EDT Body Mass Index 30.51 02/16/2025 11:14 AM EDT Plan of Treatment Upcoming Encounters Date Type Department Care Team (Late st Contact Info) Description 09/03/2025 10:45 AM EDT Office Visit [facility] [address] [place] [address] Balta Milton PA [address] [place] [address] [place] [address] MEDICARE AARP Care Teams Hardboard Coating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 Relationship Specialty Start Date End Date Grace Dyer MD [address] [facility] [place] [address] PCP - General Family Medicine 05/21/23 Britni Parry DO [address] [place] [address] Referring Physician Neurology 01/14/25
--- OUTSIDE RECORDS SUMMARY | 2025-08-20 11:11 | XMS_ITS | Encounter Summary ---
Author Organization [facility] Address [address] [facility] [place] [address] Care Team Providers Care Caramel Candy Maker Name Role Phone Grace Dyer MD Primary Care Provider [phone] Britni Parry DO Unavailable [phone] Encounter Details Date Type Department Care Team (Latest Contact Info) Description 08/20/2025 Travel Social History Tobacco Use Types Packs/Day Years [...] Description 09/03/2025 10:45 AM EDT Office Visit [facility] [address] [place] [address] Balta Milton PA [address] [place] [address] documented as of this encounter Visit Diagnoses Not on filedocumented in this encounter Care Teams Caramel Candy Maker Relationship Specialty Start Date End Date Grace Dyer MD [address] [facility] [place] [phone] PCP - General Family Medicine 05/21/23 Britni Parry DO [address] [place] [address] Referring Physician Neurology 01/14/25 documented as of this encounter
--- OUTSIDE RECORDS SUMMARY | 2025-08-20 11:11 | XMS_ITS | Clinical Summary ---
Author Organization [facility] Address [id number] [address] [place] [address] Care Team Providers Care Dishwashing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 Name Role Phone Grace Dyer MD Primary Care Provider Allergies Active Allergy Reactions Criticality Noted Date Comments Fentanyl Other (See Comments) High 02/15/2021 Leg Weakness Terbinafine Rash Low 04/30/2018 Oxycodone-Acetaminophen GI Disturbance 10/09/20 05 Penicillins Rash Low 02/16/2021 Sulfa Dyne Rash Low 09/17/2012 Medications multivitamin (THERAGRAN) tablet Take 1 tablet by mouth in the morning. 5 Active ezetimibe-simv astatin (VYTORIN) 10-40 mg per tablet Take 1 tablet by mouth nightly. 6 Active zolpidem (AMBIEN) 10 mg tablet nightly as needed. 1 8 Active rosuvastatin (CRESTOR) 40 mg tablet Take 1 tablet (40 mg total) by mouth in the morning. 3 8 Active metoprolol tartrate (LOPRESSOR) 25 mg tablet 1 tablet (25 mg total) in the morning and 1 tablet (25 mg total) before bedtime. 3 8 Active hydrALAZINE (APRESOLINE) 50 mg tablet Take 1 tablet (50 mg total) by mouth in the morning. 3 8 Active amLODIPine (NORVASC) 5 mg tablet Take 1 tablet (5 mg total) by mouth in the morning. 3 8 Active cholecalcifero l, vitamin D3, (VITAMIN D3 ORAL) daily. Active alendronate (FOSAMAX) 70 mg tablet Take 1 tablet (70 mg total) by mouth every 7 days. Active predniSONE (DELTASONE) 5 mg tablet Take 1 tablet (5 mg total) by mouth in the morning. 2 Active coenzyme Q10 200 mg capsule Take 200 mg by mouth in the morning. Active lidocaine (LIDODERM) 5 % Place 1 patch on the skin daily as needed for pain (pain) for up to 15 doses. Remove & Discard patch within 12 hours or as directed by 15 patch 3 Active sod sulf-pot chloride-mag sulf 1.479-0.188- 0.225 gram tabletIndicati ons:History of colon polyps Please see instructional sheet given by physicians office. 24 tablet 4 Active Active Problems Problem Noted Date Diagnosed Date Right knee pain 06/24/2023 Pseudopolyposis of colon, un specified complication status, unspecified part of colon 06/24/2023 Family History Medical History Relation Name Comments Hypertension Father Hypertension Mother Relation Name Status Comments Father Mother Social History Tobacco Use Types Packs/Day Years Used Date Smoking Tobacco: Former Cigarettes Smokeless Tobacco: Never Tobacco Cessation:Counseling Given: Not Answered Comments:Tried cigarettes when 17 years old Alcohol Use Standard Drinks/Week Comments Yes 0 (1 standard drink = 0.6 oz pur e alcohol) rarely Childcare Answer Date Recorded Childcare Unknown 04/15/2019 Employment Answer Date Recorded Employment Unknown 04/15/2019 Hunger Screening Answer Date Recorded Within the past 12 months we worried whether our food would run out before we got money to buy more. Never True 09/16/2024 Within the past 12 months th e food we bought just didn't last and we didn't have money to get more. Never True 09/16/2024 Purpose - Life Answer Date Recorded Purpose and direction in life Unknown Comments No Sex and Gender Information Value Date Recorded Sex Assigned at Not on file Legal Sex Female 12:11 PM EDT Gender Identity Not on file Sexual Orientation Not on file Last Filed Vital Signs Vital Sign Reading Time Taken Comments Blood Pressure 181/75 09/02/2024 9:22 AM EDT Pulse 60 09/02/2024 9:22 AM EDT Temperature 37.1 C (98.7 F) 07/21/2023 12:39 PM EDT Respiratory Rate 16 07/21/2023 1:16 PM EDT Oxygen Saturation 98% 07/21/2023 1:16 PM EDT Inhaled Oxygen Concentration - - Weight 84.7 kg (186 lb 11.2 oz) 024 10:42 AM EST Height 170.2 cm (5' 7 ) 09/02/2024 9:22 AM EDT Body Mass Index 29.24 09/02/2024 9:22 AM EDT Plan of Treatment Health Maintenance Due Date Last Done Comments Depression Screening 1967 Adult BMI Follow Up Plan 1973 DTaP,Tdap and Td Vaccines (1 - Tdap) 1974 Zoster (Shingles) Vaccine (1 of 2) 2005 Fall Risk Screening 2020 Colonoscopy 02/04/2025 02/05/2024 COVID-19 Vaccine (2024- 6 season) 2025 10/17/2022, 08/28/2021, 01/10/2021, Additional history exists Influenza Vaccine 07/05/2025 08/21/2021, , 08/04/2018, Additional history exists Adult BMI Screening 09/16/2025 09/16/2024 Tobacco Screening 09/16/2025 09/16/2024 Goals Goal Patient Goal Type Associated Problems Recent Progress Patient-Stated? Author Home with [facility] Yes Swapna Hayward LSW Note: Evaluation of progress towards goal: Home with family support and [facility] services Medical Devices Implanted Type Area Operations And Intelligence Assistant Device Identifier Shelf Expiration Date Model / Serial / Lot Cement Bn Bio 40gm Rpl [id number] +[id number] - Sn/A - [id number] Implanted:Qty : 1 on 06/25/2023 by Arik Adrian Jr., DO at [facility] Cement Right: Knee [employer] [id number] 09/03/2025 [id number] / N/A / [id number] Cement Bn Bio 40gm Rpl [id number] +[id number] - Sn/A - [id number] Implanted:Qty : 1 on 06/25/2023 by Arik Adrian Jr., DO at [facility] Cement Right: Knee [employer] [id number] 10/03/2025 [id number] / N/A / [id number] Insert Artc 3-4 E-F 10mm Kn Fx Brng Prlng Nxgn Lpsflx Strl Lpsflx Rpl [id number] + [id number] - Sn/A - [id number] Implanted:Qty : 1 on 06/25/2023 by Arik Adrian Jr., DO at [facility] Orthopedic Implant Right: Knee [employer] [id number] 09/18/202730-41[address]-178- 10 / N/A / [id number] Component Fem E Kn Rt Lpsflx Gndr Melissa? Nxgn Cocr Rpl [id number] - Sn/A - [id number] Implanted:Qty : 1 on 06/25/2023 by Arik Adrian Jr., DO at [facility] Orthopedic Implant Right: Knee [employer] [id number] 09/25/2032 [id number] / N/A / [id number] Component Ptlr 32mm Persona Alply Kn Strl Lf - Sn/A - [id number] Implanted:Qty : 1 on 06/25/2023 by Arik Adrian Jr., DO at [facility] Orthopedic Implant Right: Knee [employer] 02/24/2028 [id number] / N/A / [id number] Plate Tib [id number] Nxgn Kn Cmnt Mdlr Stm Prect 4 Tiv Pmma Rpl [id number] + [id number] - Sn/A - [id number] Implanted:Qty : 1 on 06/25/2023 by Arik Adrian Jr., DO at [facility] Plate Right: Knee [employer] [id number] 12/26/203277-6247-657- 02 / N/A / [id number] Explanted Type Area Operations And Intelligence Assistant Device Identifier Shelf Expiration Date Model / Serial / Lot Screw Gd 48mm Qd-Spr Hex Hd Mis Strl - [id number] - [id number] Explanted:Qty : 1 on 06/25/2023 by Arik Adrian Jr., DO at [facility] Screw Right: Knee [employer] [id number] 04/19/203332-5590-718 / [id number] / [id number] Screw Gd 48mm Qd-Spr Hex Hd Mis Strl - [id number] - [id number] Explanted:Qty : 1 on 06/25/2023 by Arik Adrian Jr., DO at [facility] Screw Right: Knee [employer] [id number] 11/30/203232-2698-598 / [id number] / [id number] Screw Bn 35mm 6.5mm St Hip Actb Trlg Strl Rpl [id number] - [id number] - [id number] Explanted:Qty : 1 on 06/25/2023 by Arik Adrian Jr., DO at [facility] Screw Right: Knee [employer] [id number] 01/29/2033 [id number] / [id number] / [id number] Screw Bn 35mm 6.5mm St Hip Actb Trlg Strl Rpl [id number] - [id number] - [id number] Explanted:Qty : 1 on 06/25/2023 by Arik Adrian Jr., DO at [facility] Screw Right: Knee [employer] [id number] 01/26/2033 [id number] / [id number] / [id number] Procedures Procedure Name Priority Date/Time Associated Diagnosis Comments COLONOSCOPY Routine 02/05/2024 History of colon polyps from Last 3 Months or Most Recently Relevant to Health Maintenance Results * Colonoscopy (02/05/2024) us Maria L Bean BIT SETTER-GRANULATOR GI PROCEDURE ORDERABL ES Final Result MANUALLY TRANSCRIBED RESULTS from Last 3 Months or Most Recently Relevant to Health Maintenance Insurance MEDICARE [facility] Advance Directives * Full Code (Latest Code Status on File) Date Activated Date Inactivated Comments 06/24/2023 8:52 PM 06/26/2023 3:54 PM Care Teams Dishwashing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 Relationship Specialty Start Date End Date Grace Dyer MD [address] [place] [address] PCP - General 04/30/18
--- OUTSIDE RECORDS SUMMARY | 2025-08-20 11:11 | XMS_ITS | Encounter Summary ---
Author Organization [facility] Address [address] [place] [address] Care Team Providers Care Filler Blender Name Role Phone Grace Dyer MD Primary Care Provider [phone] Britni Parry DO Unavailable [phone] Encounter Details Date Type Department Care Team (Late st Contact Info) Description 08/20/2025 Bamboo flowsheet [facility] [address] [facility] [place] [place] [address] Balta Milton PA [address] [place] [address] Social History Tobacco Use Types [...] Description 09/03/2025 10:45 AM EDT [facility] [address] [place] [address] Balta Milton PA [address] [place] [address] documented as of this encounter Visit Diagnoses Not on filedocumented in this encounter Care Teams Filler Blender Relationship Specialty Start Date End Date Grace Dyer MD [address] [place] [address] PCP - General Family Medicine 05/21/23 Britni Parry DO [address] [place] [address] Referring Physician Neurology 01/14/25 documented as of this encounter
--- OUTSIDE RECORDS SUMMARY | 2025-08-20 11:11 | XMS_ITS | Clinical Summary ---
Author Organization [facility] Address [address] [place] [id number] Care Team Providers Care Wall Man Name Role Phone Grace Dyer MD Primary Care Provider [phone] Allergies Active Allergy Reactions Criticality Noted Date Comments Fentanyl Unknown 02/15/2021 Penicillins Rash 02/16/2021 Oxycodone-Acetaminophen GI Upset 10/09/2005 Sulfa Dyne Rash 09/17/2012 Terbinafine Rash Low 04/30/2018 Medications MULTIVITAMIN TAB Take one(1) tablet daily. 0 10/09/2005 Active METOPROLOL TARTRATE, SHORT ACTING, 50 mg tablet 08/21/2012 Active ZOLPIDEM 10 mg Tab Take 10 mg by mouth once daily. 07/18/2012 Active amLODIPine (NORVASC) 5 mg tablet Take 5 mg by mouth. 02/18/2018 Active hydrALAZINE (APRESOLINE) 50 mg tablet Take 50 mg by mouth. 02/15/2018 Active rosuvastatin (CRESTOR) 40 mg tablet 12/09/2020 Active predniSONE (DELTASONE) 5 mg tablet TAKE 2 TABLETS BY MOUTH ONCE DAILY OR DIRECTED 02/01/2022 Active aspirin, enteric coated (ASPIRIN, ENTERIC COATED) 81 mg EC tablet Take 81 mg by mouth once daily. Active HYDROcodone-sherri taminophen (NORCO) 5-325 mg per tablet 02/13/2022 Activ e Active Problems Problem Noted Date Diagnosed Date Open wound of abdominal wall, anterior, complica ludin 10/01/2005 Personal history of malignant neoplasm of breast 08/13/2005 Malignant neoplasm of upper-outer quadrant of fe male breast Hip joint replacement by other means Immunizations Immunization Administration Dates Next Due COVID-19 vaccine, unspecified formulation 2020,12/12/2020 influenza (IIV3) vaccine, tr ivalent (AFLURIA, FLULAVAL, FLUVIRIN, FLUZONE) 08/04/2019 influenza (aIIV3) vaccine, a ge 65+ yr, trivalent, PF (FLUAD) 08/21/2021 novel influenza (H5W1-35) vaccine, PF 09/10/2009 pneumococcal polysaccharide (PPV23) vaccine, 23 valent (PNEUMOVAX 23) 06/12/2021 Family History Medical History Relation Comments Diabetes Father Hypertension Father Breast Cancer Maternal Grandmother Relation Status Comments Brother 1 Alive Brother 2 Alive Brother 3 Alive Father Maternal Grandmother Mother Sister 1 Alive Sister 2 Alive Sister 3 Alive Sister 4 Alive Sister 5 Alive Sister 6 Alive Social History Tobacco Use Types Packs/Day Years Used Date Smoking Tobacco: Former Cigarettes 1 3 Smokeless Tobacco: Never Alcohol Use Standard Drinks/Week Comments Yes 0 (1 standard drink = 0.6 oz pur e alcohol) Area Deprivation Index Answer Date Lexx rded National Score (1-100), lower number is lower ri sk 65 02/21/2023 State Score (1-10), lower number is lower risk N ot on file 02/21/2023 Data from: https://www.neighborhoodatlas.medicine.[facility].edu/. Last address used for calculation [address] 02/21/2023 Comments No Sex and Gender Information Value Date Recorded Sex Assigned at Not on file Legal Sex Female 10:05 AM EST Gender Identity Not on file Sexual Orientation Not on file Last Filed Vital Signs Vital Sign Reading Time Taken Comments Blood Pressure 166/85 02/15/2022 11:07 AM EDT Pulse 66 02/15/2022 11:07 AM EDT Temperature 36.3 C (97.4 F) 02/15/2022 11:07 AM EDT Respiratory Rate 16 02/15/2022 11:0 7 AM EDT Oxygen Saturation 97% 02/15/2022 11: 07 AM EDT Inhaled Oxygen Concentration - - Weight 87.1 kg (192 lb) 02/15/2022 11:0 7 AM EDT verbal per pt Height 170.2 cm (5' 7.01 ) 02/15/2022 1 1:07 AM EDT Body Mass Index 30.06 02/15/2022 11:07 AM EDT Plan of Treatment Health Maintenance Due Date Last Done Comments Anxiety Screening 1973 Depression Screening 1973 Hepatitis C Screening 1973 DTaP,Tdap,Td Vaccine (1 - Tdap) [address] Colonography 2000 Cologuard (FIT-DNA) 2000 Colonoscopy 2000 Colorectal Cancer Screening 2000 Fecal Occult Blood 2000 Lipid Screening 2000 Sigmoidoscopy 2000 Shingrix Vaccine (1 of 2) 2005 Bone Density Screening 2020 Pneumococcal Vaccine: 50+ (2 of 2 - PCV) 06/12/2022 06/12/2021 Advance Directive Discussion 11/04/2024 Diabetes Screening 02/15/2025 02/15/2022, 0 01/26/2014, 08/23/2006, Additional history exists Covid-19 Vaccine (4 - 2024-2 6 season) 2025 08/28/2021, 01/10/2021, 12/12/2020 Influenza Vaccine (#1) 2025 , 08/04/2019, 09/10/2009 RSV Vaccine (1 - 1-dose 75+ series) 2030 Procedures Procedure Name Priority Date/Time Associated Diagnosis Comments COMPREHENSIVE METABOLIC PANEL Routine 02/15/2022 11:01 AM EDT Malignant neoplasm of upper-outer quadrant of left breast in female, estrogen receptor positive (HCC) from Last 3 Months or Most Recently Relevant to Health Maintenance Results * (ABNORMAL) COMP METABOLIC PANEL (02/15/2022 11:01 AM EDT) Protein, Total 7.1 6.3 - 8.0 g/dL 02/15/2022 11:32 AM EDT [facility] Albumin 4.5 3.9 - 4.9 g/dL 02/15/2022 11:32 AM EDT [facility] Calcium, Total 9.7 8.5 - 10.2 mg/dL 02/15/2022 11:32 AM [facility] Bilirubin, Total 1.1 0.2 - 1.3 mg/dL 02/15/2022 11:32 AM [facility] Alkaline Phosphatase 82 34 - 123 U/L 02/15/2022 11:32 AM [facility] AST 28 13 - 35 U/L 02/15/2022 11:32 AM [facility] ALT 29 7 - 38 U/L 02/15/2022 11:32 AM [facility] Glucose 128(H) 74 - 99 mg/dL 02/15/2022 11:32 AM [facility] Comment: The [place] [employer] (ADA) provides guidance for cutoff [...] Standards of Medical Care in Diabetes 2016, [place] [employer]. Diabetes Care. 2016.39(Suppl 1). BUN 23(H) 7 - 21 mg/dL 02/15/2022 11:32 AM [facility] Creatinine 0.82 0.58 - 0.96 mg/dL 02/15/2022 11:32 AM [facility] Sodium 134(L) 136 - 144 mmol/L 02/15/2022 11:32 AM [facility] Potassium 3.9 3.7 - 5.1 mmol/L 02/15/2022 11:32 AM [facility] Chloride 103 97 - 105 mmol/L 02/15/2022 11:32 AM [facility] CO2 22 22 - 30 mmol/L 02/15/2022 11:32 AM EDT [facility] Anion Gap 9 9 - 18 mmol/L 02/15/2022 11:32 AM EDT [facility] Estimated Glomerular Filtration Rate 79 >=60 mL/min/1. 73m 02/15/2022 11:32 AM EDT [facility] Comment:Estimated Glomerular Filtration Rate (eGFR) is calculated using the 2020 CKD-EPI creatinine equation. This equation utilizes serum creatinine, sex, and age as parameters. The creatinine assay has traceable calibration to isotope dilution- mass spectrometry. Refer to KDIGO guidelines for clinical interpretation. In patients with unstable renal function, e.g. those with acute kidney injury, the eGFR may not accurately reflect actual GFR. Blood BLOOD SPECIMEN / Unknown Venipuncture / Unknown 02/15/2022 11:01 AM EDT 02/15/2022 11:01 AM EDT Errol Corbin MD LABORATORY Final Re sult [facility] [address] [place] [address] from Last 3 Months or Most Recently Relevant to Health Maintenance Insurance MEDICARE Member Subscriber Plan / Payer (Ef fective 2020-Present) Name:Uzma Ramirez Member ID:[id number] Relation to Subscriber:Self Name:Uzma Ramirez Subscriber ID:[id number] Payer ID:Not on file Group ID:Not on file Type:Medicare Address: [place] [id number] Care Teams Wall Man Relationship Specialty Start Date End Date Grace Dyer MD [address] [facility] [place] [id number] PCP - General Family Medicine 01/26/14
--- OUTSIDE RECORDS SUMMARY | 2025-08-20 11:12 | XMS_ITS | CCD ---
Author Organization [facility] Care Team Providers Care Xerox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 Name Role Phone Florinda Flowers Primary Care Provider [phone] MD Florinda Flowers Primary Care Provider [phone] ROSA Milton Attending Provider [phone] MD Ascencion Ortiz Attending Provider Teetee Rizvi Unavailable MD Florinda Flowers Primary Care Provider MD Teetee Rizvi Attending Provider [phone] Florinda Flowers Unavailable Unavailable Unavailable Dr. Florinda Flowers Primary Care Unav ailable Perez, Dr. Lei Velázquez Referring Britt vailable Perez, Dr. Lei Velázquez Attending Britt vailable Elizabeth Wyatt Unavailable Florinda Flowers Unavailable DR RYAN ORTIZ Attending Unavailable ANGEL, DR DAVIS Admitting Unavailable [...] Admitting Unavailable MISC, DR MONGE Consulting Unavailable FLOWERS, DR FLORINDA Arriola Primary Care Unavailable GRILLIReema ., DR REHANA Arriola Admitting Unavaila ble GRSERENA ., DR REHANA Arriola Consulting Unavaila ble FLOWERS, DR FLORINDA Arriola Primary Care Unavailable GRILLIReema ., DR REHANA Arriola Attending Unavaila ble GRSERENA ., DR REHANA Arriola Consulting Unavaila ble GRSERENA ., DR REHANA Arriola Attending Unavaila ble FLOWERS, DR FLORINDA Arriola Primary Care Unavailable GRILLIReema ., DR REHANA Arriola Admitting Unavaila ble ISABEL RAMIREZ Consulting Unavailable FILMARIA L VANG Consulting Unavailable PEREZ, DR LEI Nicole Attending Unavailable PEREZ, DR LEI Nicole Admitting Unavailable FLOWESR, DR FLORINDA Arriola Primary Care Unavailable PEREZ, DR LEI Nicole Consulting Unavailable MD Florinda Flowers Primary Care Provider DO Rehana Reinoso Attending Provider MD Florinda Flowers Primary Care Provider DO Rehana Reinoso Attending Provider Rehana Reinoso Attending Unavailable Rehana Reinoso Admitting Unavailable Florinda Flowers Primary Care Unavailable Rehana Reinoso Admitting Unavailable Florinda Flowers Primary Care Unavailable Rehana Reinoso Attending Unavailable Florinda Flowers MD Primary Care Provider MARIA L BEAN Attending Unavailable FLORINDA FLOWERS Referring Unavailable FLORINDA FLOWERS Primary Care Unavailable REHANA REINOSO Attending Unavailable FLORINDA FLOWERS Referring Unavailable FLORINDA FLOWERS Primary Care Unavailable MARIA L BEAN Attending Unavailable FLORINDA FLOWERS Referring Unavailable FLORINDA FLOWERS Primary Care Unavailable Florinda Flowers MD Primary Care Provider [phone] Mc Parry DO Unavailable Florinda Flowers MD Primary Care Provider [phone] JR. JESSICA, DELL Curry Attending Unavaila rosibel ADRIAN JR., GEORGE C Referring Unavaila MC Santoyo Attending Unavailable FLORINDA FLOWERS Referring Unavailable MIGEL DUNLAP Attending Unavailable MC PARRY Referring Unavailable MC PARRY Referring Unavailable MIGEL DUNLAP Attending Unavailable UZMA JOEL Attending Unavailable Florinda Flowers MD Primary Care Provider [phone] Uzma Joel APRN Attending Provider Florinda Flowers MD Primary Care Provider Mc Parry DO Unavailable Allergies Allergy Classification Reported Allergen(s) Allergy Type Date of Onset Reaction(s) Facility (20 sources) Acetaminophen / oxyCODONE; Translations: [Percocet TABS] Drug Allergy 10-09-20 05 GI Upset, GI Disturbance, GI intolerance [facility] (14 sources) Sulfa Dyne; Translations: [SULFA DYNE] Drug Allergy 09-17-20 12 Rash [facility] (20 sources) fentaNYL; Translations: [FENTANYL] Drug Allergy 09-20-20 17 Unknown, Other (See Comments) [facility] Comment on above: Onset Date: 09/20/20 17 (20 sources) terbinafine; Translations: [TERBINAFINE] Drug Allergy 07-29-20 17 [facility] Comment on above: Onset Date: 07/29/20 17 (7 sources) Penicillins; Translations: [PENICILLINS] Drug Allergy 02-17-20 21 [facility] (4 sources) Penicillin V Drug Allergy Unknown [facility] Other (1 source) sulfaSALAzine Drug Allergy Unknown [facility] Other (12 sources) terbinafine; Translations: [Lamisil] Drug Allergy 09-09-20 14 Unknown [facility] (6 sources) oxyCODONE; Translations: [oxycodone] Drug Allergy 07-04-20 22 [facility] (6 sources) Sulfonamides (Antibiotic); Translations: [Sulfa (Sulfonamide Antibiotics)] Allergy to substance 07-04-20 [facility] (2 sources) Penicillins; Translations: [Penicillins] Allergy to drug (finding) [facility] 600 DO Work Phone: (2 sources) Sulfur; Translations: [Sulfur] Drug Allergy [facility] 600 DO Work Phone: (2 sources) Lamisil CREA; Translations: [Lamisil CREA] Allergy to drug (finding) [facility] 600 DO Work Phone: (3 sources) Sulfonamide Drug allergy Unknown [facility] [employer] Other (8 sources) Penicillin; Translations: [penicillin] Drug Allergy Unknown [facility] (20 sources) Substance with sulfonamide structure and antibacterial mechanism of action (substance) Drug allergy 05-21-20 23 Rash [facility] [employer] Other (1 source) Acetaminophen / oxyCODONE Drug Allergy 09-09-20 14 [facility] (1 source) Sulfonamides (Antibiotic) Drug allergy (disorder) 09-09-20 14 [facility] (1 source) terbinafine Drug Allergy 07-29-20 17 Unknown [facility] [employer] Other (5 sources) Acetaminophen; Translations: [acetaminophen] Drug Allergy 08-07-20 23 [facility] (5 sources) Starch; Translations: [starch] Drug Allergy 08-07-20 23 [facility] Comment on above: Onset Date: 07/29/20 17 (5 sources) Talc; Translations: [talc] Drug Allergy 08-07-20 23 [facility] Comment on above: Onset Date: 07/29/20 17 (1 source) fentaNYL Drug Allergy 08-21-20 [facility] (1 source) Penicillins Drug allergy (disorder) 08-21-20 [facility] (1 source) terbinafine Drug Allergy 08-21-20 [facility] (9 sources) Penicillins Propensity to adverse reactions to drug 02-17-20 Rash [facility] (14 sources) Penicillins Drug Allergy 02-17-20 Rash [facility] Medications Current Medications Medication Drug Class(es) Dates Sig (Normalized) Sig (Original) 8 hr acetaminophen 650 mg extended release oral tablet (14 sources) Start: 03-11-2024 take 2 tablets by mouth every eight hours as needed take 2 tablets by mo uth every eight hours take 2 tablets by mo uth every eight hours as needed Acetaminophen ER 650 MG 2 tablets as nee ded Orally every 8 hrs Active alendronic acid 70 mg oral tablet (20 sources) Bisphosphonate Start: 07-20-2024 End: 09-21-2024 take 1 tablet by mouth every week Alendronate 70 mg tablet Active 0 .ROUTE .COMPLEX September 21, 2024 9:31am TAKE 1 TABLET BY MOUTH ONCE WEEKLY 30 MINUTES BEFORE THE FIRST FOOD, BEVERAGE OR MEDICINE OF THE DAY WITH PLAIN WATER Complies with drug therapy Start: 02-16-2022 End: 07-20-2024 take 1 tablet by mouth every week Alendronate 70 mg Tablet Discontinued 70 MG PO every week July 04, 2022 12:00am July 20, 2024 10:20am on Saturday Start: 07-13-2012 ALENDRONATE 70 mg tablet alendronate (FOS AMAX) 70 mg tablet Take 1 tablet (70 mg total) by mouth every 7 days. Active amLODIPine 5 mg oral tablet (20 sources) Dihydropyridine Calcium Channel Rosario Start: 11-30-2024 End: 04-20-2025 take 1 tablet by mouth once daily Amlodipine 5 mg tablet Active 0 .ROUTE .COMPLEX April 20, 2025 2:38pm Take 1 tablet by mouth once daily Complies with drug therapy Start: 02-18-2018 End: 11-30-2024 take 1 tablet by mouth once daily Amlodipine 5 mg Tablet Discontinued 5 MG PO Daily July 04, 2022 12:00am May 06, 2024 12:19pm Comment on above: Take 5 mg by mouth. aspirin 81 mg delayed release oral tablet (14 sources) Platelet Aggregation Inhibitor, Nonsteroidal Anti-inflammatory Drug aspirin (Aspirin EC Low Strength) 81 MG EC tablet 1 capsule 1 (one) time each day at the same time Active 24 hr buPROPion hydrochloride 150 mg extended release oral tablet (8 sources) Aminoketone Start: End: take 1 tablet by mouth every twenty-four hours in the morning Bupropion Hcl 150 mg tablet extended release 24 hr Active 0 .ROUTE .COMPLEX March 03, 2025 11:52am TAKE 1 TABLET BY MOUTH IN THE MORNING Complies with drug therapy Start: 03-18-2024 End: 10-05-2024 take 1 tablet by mouth once daily in the morning Bupropion Hcl (Wellbutrin Xl) 150 mg tablet extended release 24 hr Discontinued 150 MG PO Every morning April 08, 2024 12:00pm October 05, 2024 9:45am cholecalciferol 0.05 mg oral capsule (4 sources) Vitamin D Start: 03-11-2024 take 1 capsule by mo uth once daily take 1 capsule by mouth every tw enty-four hours cholecalciferol (Vitamin D3) 200 Unit tablet split tablet (14 sources) cholecalciferol (Vitamin D3) 200 Unit tablet split tablet in the morning. Active cholecalciferol (Vitamin D3) 200 Unit tablet split tablet Daily. Active cholecalciferol, vitamin D3, (VITAMIN D3 ORAL) (9 sources) cholecalciferol, vitamin D3, (VITAMIN D3 ORAL) daily. Active cholecalciferol, vitamin D3, (VITAMIN D3 ORAL) daily. 0 Active cyclobenzaprine hydrochloride 10 mg oral tablet (3 sources) Muscle Relaxant Start: 02-16-2025 cyclobenzaprine (Flexeril) 10 MG tablet Indications: Other insomnia , Other chronic pain Take 1/2-1 at bedtime 30 tablet 2 02/16/2025 Active doxepin hydrochloride 10 mg oral capsule (10 sources) Tricyclic Antidepressant Start: 01-14-2025 take 1 capsule by mouth once at bedtime doxepin (SINEquan) 10 MG capsule Indications: Primary insomnia 1-2 po q hs 60 capsule 2 01/14/2025 Active doxycycline hyclate 100 mg oral tablet (3 sources) Tetracycline-class Drug Start: 08-21-2024 take 1 tablet by mouth twice daily Doxycycline Hyclate 100 mg tablet Active 100 MG PO Twice daily August 21, 2024 12:00am Complies with drug therapy ezetimibe 10 mg / simvastatin 40 mg oral tablet (12 sources) HMG-CoA Reductase Inhibitor, Dietary Cholesterol Absorption Inhibitor Start: 08-23-2006 take 1 tablet by mouth once daily ezetimibe-simvastat in (VYTORIN) 10-40 mg per tablet Take 1 tablet by mouth nightly. 08/23/2006 Active Comment on above: Take one(1) tablet d aily. fluconazole 100 mg oral tablet (7 sources) Azole Antifungal Start: 12-24-2022 take 1 tablet by mouth every twenty-four hours lidocaine 0.05 mg/mg medicated patch (9 sources) Antiarrhythmic, Amide Local Anesthetic Start: 07-21-2023 apply 1 dose transdermal route once daily as needed for pain lidocaine (LIDODERM) 5 % Place 1 patch on the skin daily as needed for pain (pain) for up to 15 doses. Remove & Discard patch within 12 hours or as directed by MD Bhatia patch 07/21/2023 Active multivitamin (THERAGRAN) tablet (9 sources) Start: 10-09-2005 take 1 tablet by mouth in the morning multivitamin (THERAGRAN) tablet Take 1 tablet by mouth in the morning. 10/09/2005 Active Start: 10-09-2005 take 1 tablet by dalia th in the morning multivitamin (THERAGRAN) tablet Take 1 tablet by mouth in the morning. 0 10/09/2005 Active ondansetron 4 mg oral tablet (4 sources) Serotonin-3 Receptor Antagonist take 1 tablet by mouth three times daily as needed for nausea Zofran 4 MG 1 tablet Orally 3 times a day prn nausea Active predniSONE 5 mg oral tablet (20 sources) Start: End: take 1 tablet by mouth once daily Prednisone 5 mg tablet Active 0 .ROUTE .COMPLEX 90 March 03, 2025 11:52am Take 1 tablet by mouth once daily Complies with drug therapy Start: 09-30-2022 take 1 tablet by dalia th every twelve hours predniSONE 20 MG 1 tablet Orally 2 times a day for 5 day(s) Sep, Active Start: 07-04-2022 End: 09-15-2024 take 1 tablet by mouth in the morning predniSONE (Deltasone) 5 MG tablet Take 5 mg by mouth in the morning. 08/21/2022 Active Start: 02-01-2022 take 2 tablets by mo uth once daily predniSONE 5 MG Oral Tablet TAKE 2 TABLETS BY MOUTH ONCE DAILY OR DIRECTED Quantity: 60 Refills: 0 Ordered: 06-Jun-2022 DO Start : 01-Feb-2022 Active rosuvastatin calcium 40 mg oral tablet (20 sources) HMG-CoA Reductase Inhibitor Start: 11-17-2024 End: 02-22-2025 take 1 tablet by mouth once daily Rosuvastatin 40 mg tablet Active 0 .ROUTE .COMPLEX 90 February 22, 2025 8:26am Take 1 tablet by mouth once daily Complies with drug therapy Start: 02-15-2018 End: 11-17-2024 take 1 tablet by mouth once daily Rosuvastatin 40 mg Tablet Discontinued 40 MG PO Daily July 04, 2022 12:00am November 17, 2024 3:34pm sod sulf-pot chloride-mag ross lf 1.479-0.188- 0.225 gram tablet (10 sources) Start: 01-29-2024 sod sulf-pot c hloride-mag sulf 1.479-0.188- 0.225 gram tablet Indications: History of colon polyps Please see instructional sheet given by physicians office. 24 tablet 01/29/2024 Active Start: 01-29-2024 sod sulf-pot c hloride-mag sulf 1.479-0.188- 0.225 [...] physicians office. 24 tablet 0 01/03/2024 Active tiZANidine 4 mg oral tablet (3 sources) Central alpha-2 Adrenergic Agonist Start: 04-30-2024 take 1 tablet by mouth once daily at bedtime as needed Tizanidine 4 mg tablet Active 4 MG PO Daily at bedtime as needed for muscle spasticity April 30, 2024 12:00am Complies with drug therapy ubidecarenone 200 mg oral capsule (20 sources) take 1 capsule by mouth in the morning coenzyme Q-10 200 MG capsule Take 200 mg by mouth in the morning. Active take 10 capsules by mouth once in the morning coenzyme Q10 200 mg capsule Take 200 mg by mouth in the morning. Active Vitamin D 50 MCG (1999 UT) (10 sources) take 1 capsule by mouth once yonatan ly take 1 capsule by mouth once yonatan ly Vitamin D 50 MCG (1999 UT) 1 capsule Orally Once a day Active Completed/Discontinued Medications Medication Drug Class(es) Dates Sig (Normalized) Sig (Original) ergocalciferol 2000 unt oral tablet (3 sources) Provitamin D2 Compound Start: 06-09-2013 take 1 tablet by mouth once daily ergocalciferol, vitamin D2, 2,000 unit Tab Indications: Personal history of malignant neoplasm of breast , Creatinine elevation Take 1 tablet by mouth once daily. 30 tablet 3 06/09/2013 Active Comment on above: Take 1 tablet by dalia once daily. hydrALAZINE hydrochloride 50 mg oral tablet (20 sources) Arteriolar Vasodilator Start: 02-17-2024 End: 03-12-2024 take 1 tablet by mouth once daily at mealtime Hydralazine 50 mg tablet Discontinued 0 .ROUTE .COMPLEX 90 February 17, 2024 1:02pm March 12, 2024 11:49am Take 1 tablet by mouth once daily with food Start: 02-15-2018 End: 03-03-2025 take 1 tablet by mouth once daily at mealtime Hydralazine 50 mg tablet Discontinued 1 TAB PO Daily March 11, 2024 12:00am July 07, 2024 1:15pm FreeTextSi tablet with food Orally ONCE A DAY; Note: Source Status: Refill; Refills: 0; Provider: Lionel Arriola hydrALAZINE (Apr esoline) 50 MG tablet every 8 (eight) hours Active Comment on above: Take 50 mg by mouth. hydroCHLOROthiazide 12.5 mg / valsartan 160 mg oral tablet (3 sources) Thiazide Diuretic, Angiotensin 2 Receptor Rosario Start: 012 DIOVAN HCT 160-12.5 mg per tablet metoprolol tartrate 25 mg oral tablet (20 sources) beta-Adrenergic Rosario Start: 018 End: 025 take 1 tablet by mouth twice daily Metoprolol Tartrate 25 mg Tablet Discontinued 25 MG PO Twice daily July 04, 2022 12:00am January 16, 2024 4:02pm Start: 08-21-2012 METOPROLOL TAR TRATE, SHORT ACTING, 50 mg tablet metoprolol tartr ate (Lopressor) 25 MG tablet every 12 (twelve) hours Active MULTIVITAMIN TAB (4 sources) Start: 10-09-2005 MULTIVITAMIN T AB Take one(1) tablet daily. 0 10/09/2005 Active Comment on above: Take one(1) tablet d aily. sertraline 50 mg oral tablet (3 sources) Serotonin Reuptake Inhibitor Start: 03-12-2024 End: 03-18-2024 take 1 tablet by mouth once daily Sertraline 50 mg tablet Discontinued 50 MG PO Daily March 12, 2024 12:00am March 18, 2024 10:31am traMADol hydrochloride 50 mg oral tablet (6 sources) Opioid Agonist Start: 05-11-2023 End: 01-14-2025 take 1 tablet by mouth twice daily as needed traMADol (Ultram) 50 MG tablet Take 50 mg by mouth 2 (two) times a day as needed. 05/11/2023 01/14/2025 Discontinued zolpidem tartrate 10 mg oral tablet (20 sources) gamma-Aminobutyr ic Acid-ergic Agonist Start: 07-18-2012 End: 01-14-2025 take 1 tablet by mouth once daily at bedtime as needed Zolpidem 10 mg Tablet Discontinued 10 MG PO Daily at bedtime as needed for Insomnia July 04, 2022 12:00am January 16, 2024 4:02pm Comment on above: Take 10 mg by mouth once daily. Problems Active Problems Problem Classification Problem Date Documented Da te Episodic/Chronic Administrative/social admission (6 sources) Bereavement; Translations: [Disappearance and of family member] 02-03-2025 Episodic Anxiety disorders (4 sources) Anxiety disorder; Translations: [Anxiety disorder, unspecified] Onset: 08-08-2015 Chronic Cancer of breast (19 sources) Malignant neoplasm of upper-outer quadrant of female breast; Translations: [Malignant neoplasm of upper-outer quadrant of left female breast] Onset: 06-18-2023 09-15-2012 Chronic Cardiac dysrhythmias (2 sources) Sinus bradycardia; Translations: [Other specified cardiac dysrhythmias] Episodic Chronic kidney disease (20 sources) Chronic kidney disease stage 3A ; Translations: [Chronic kidney disease, stage 3a] Chronic Delirium, dementia, and amnestic and other cognitive disorders (6 sources) Progressive aphasia; 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-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 Disorders of lipid metabolism (15 sources) Hyperlipidemia; Translations: [Other and unspecified hyperlipidemia] [...] A virus with upper respiratory signs] Episodic Joint disorders and dislocations; trauma-related (14 sources) Derangement of left knee; Translations: [Unspecified internal derangement of left knee] Onset: 06-18-2023 06-18-2023 Chronic Miscellaneous mental health disorders (14 sources) Primary insomnia; Translations: [Primary insomnia] Chronic Mood disorders (11 sources) Depressive disorder; Translations: [Depression] 03-19-2024 Chronic Osteoarthritis (19 sources) Unspecified osteoarthritis, unspecified site; Translations: [Osteoarthritis] Onset: 07-03-2022 06-18-2023 Chronic Osteoporosis (5 sources) Primary osteoporosis; Translations: [Age-related osteoporosis without current pathological fracture] 12-10-2024 Chronic Other aftercare (2 sources) prison (current) use of non-steroidal anti-inflammatories (NSAID) Onset: 06-12-2022 Resolved: 06-12-2022 Episodic Other aftercare (1 source) Other exterminator termite (current) drug therapy; Translations: [OTH LOADER DEMOLDER CURRENT DRUG THERAPY] Onset: 02-24-2023 Episodic Other [...] [Polymyalgia rheumatica] Chronic Other connective tissue disease (14 sources) Artificial knee joint present; Translations: [Presence of unspecified artificial knee joint] Onset: 06-18-2023 06-18-2023 Chronic Other connective tissue disease (16 sources) History of total knee arthroplasty; Translations: [Presence of left artificial knee joint] Onset: 06-18-2023 06-18-2023 Chronic Other connective tissue disease (4 sources) [...] [Cough, unspecified] Episodic Other nervous system disorders (2 sources) Chronic pain; Translations: [Other chronic pain] 02-16-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 Other nervous system disorders (4 sources) Skin sensation disturbance; Translations: [Other disturbances of skin sensation] Episodic Other nervous system disorders (2 sources) Pseudodementia; Translations: [Other symptoms and signs involving cognitive functions and awareness] 01-14-2025 Episodic Other nervous system disorders (2 sources) Word finding difficulty ; Translations: [Other speech disturbances] 02-16-2025 Episodic Other non-traumatic joint disorders (3 sources) Joint pain; Translations: [Pain in unspecified joint] 03-19-2024 Episodic Other non-traumatic joint disorders (2 sources) Pain in left knee; Translations: [Pain in joint, lower leg] 11-25-2024 Episodic Other nutritional; endocrine; and metabolic disorders [...] status: food and fluid intake] Episodic Other screening for suspected conditions (not mental disorders or infectious disease) (5 sources) Encounter for screening mammogram for malignant neoplasm of breast; Translations: [Patient encounter status] Onset: 07-02-2022 Episodic Other skin disorders (3 sources) Mass of scalp; Translations: [Localized swelling, mass and lump, head] 08-21-2024 Episodic Other skin disorders (2 sources) Localized swelling, mass and lump, head; Translations: [Localized superficial swelling, mass, or lump] 08-21-2024 Episodic Other skin disorders (1 source) Epidermal cyst; Translations: [Epidermal cyst] Onset: 09-02-2024 Episodic Other upper respiratory infections (4 sources) Chronic sinusitis; Translations: [Chronic sinusitis, unspecified] Chronic Regional enteritis and ulcerative colitis (9 sources) Pseudopolyposis of colon; Translations: [Inflammatory polyps of colon without complications] Onset: 06-24-2023 06-24-2023 Chronic Residual codes; unclassified (6 sources) Insomnia; Translations: [Other insomnia] 02-03-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 Residual codes; unclassified (10 sources) Insomnia; Translations: [Insomnia, unspecified] Onset: 03-08-2014 01-16-2024 Episodic Residual codes; unclassified (3 sources) Memory impairment; Translations: [Other amnesia] 03-19-2024 Episodic Residual codes; unclassified (12 sources) Amnesia; Translations: [Other amnesia] 01-14-2025 Episodic Residual codes; unclassified (2 sources) Chronic pain 02-16-2025 Episodic Spondylosis; intervertebral disc disorders; other back problems (7 sources) Disorder of sacrococcygeal spine; Translations: [Sacrococcygeal disorders, not elsewhere classified] Onset: 05-19-2018 04-30-2024 Episodic Unclassified (3 sources) History of repair of hip joint; Translations: [Hip joint replacement by other means] 11-14-2012 Unclassified (1 source) CONTACT W/AND (SUSP) EXPOS COVID-19; Translations: [CONTACT W/AND (SUSP) EXPOS COVID-19] Onset: 11-26-2022 Unclassified (1 source) Post-op Onset: 09-16-2024 Unclassified (1 source) Cyst Onset: 09-02-2024 Unclassified (1 source) Colon Cancer Screening Onset: 01-03-2024 Past or Other Problems Problem Classification Problem Date Documented Da te Episodic/Chronic Allergic reactions (4 sources) Urticaria, unspecified; Translations: [Urticaria] Onset: 03-08-2014 Episodic Cancer of breast (20 sources) History of malignant neoplasm of breast; Translations: [Personal history of malignant neoplasm of breast] Onset: 08-13-2005 08-13-2005 Episodic Chronic kidney disease (3 sources) Chronic kidney disease Onset: 06-12-2022 Resolved: 06-12-2022 Diseases of mouth; excluding dental (4 sources) Disorder of salivary gland; Translations: [Other diseases of salivary glands] Onset: 09-09-2014 Episodic Mycoses (9 sources) Candidiasis of skin and nail; Translations: [Tinea cruris] Onset: 03-24-2014 Episodic Open wounds of head; neck; and trunk (18 sources) Open wound of anterior abdominal wall with complication; Translations: [Unspecified open wound of abdominal wall, unspecified quadrant without penetration into peritoneal cavity, initial encounter] Onset: 10-01-2005 10-01-2005 Episodic Other and unspecified benign neoplasm (5 sources) Personal history of colonic polyps; Translations: [PERSONAL HISTORY OF COLONIC POLYPS] Onset: 2022 Episodic Other and unspecified benign neoplasm (1 source) Benign neoplasm of sigmoid colon; Translations: [BENIGN NEOPLASM OF SIGMOID COLON] Onset: 11-23-2022 Episodic Other and unspecified benign neoplasm (3 sources) History of polyp of colon; Translations: [Personal history of colonic polyps] 01-03-2024 Episodic Other bone disease and musculoskeletal deformities (4 sources) Bone density finding; Translations: [Other specified disorders of bone density and structure, unspecified site] Onset: 03-08-2014 Episodic Other non-traumatic joint disorders (9 sources) Pain in right knee; Translations: [Pain in joint, lower leg] Onset: 06-24-2023 06-24-2023 Episodic Other skin disorders (4 sources) Epidermoid cyst; Translations: [Epidermal cyst] 09-02-2024 Episodic Residual codes; unclassified (1 source) Acquired [...] 08-05-2015 Episodic Residual codes; unclassified (4 sources) Family history of breast cancer; Translations: [Family history of malignant neoplasm of breast] Onset: 03-08-2014 Episodic Screening and history of mental health and substance abuse codes (3 sources) Ex-smoker; Translations: [Personal history of tobacco use] Onset: 11-23-2022 Episodic Results Test Name Value Interpretation Reference Range Facility Surgical [facility]ologyon [address] [place] [address] 09-08-2024 L -- Specimen: [id number] Received: 09/09/24 Status: NASIR [place]brook Num: [id number] Spec Type: Surgical Subm Dr: Rehana Reinoso,DO Tissues: A Skin Cyst (LT POSTERIOR SCALP CYST) Procedures: HE/4, Gross/Micro L3 -- Age/ Patient Sex Location Account Attending Physician -- Uzma Ramirez 68/F LABELL [id number] Rehana Reinoso,DO -- SPEC NUM: [id number] RECD: 09/09/24 STATUS: NASIR [place] NUM: [id number] MARIBELL: 09/08/241339 [facility] DR: Rehana Reinoso DO ENTERED: 09/09/24 [facility] DR: Fab,Lab SPEC TYPE: Surgical DEPT: FLIP FRANZ ENTERED BY: [id number] RECV BY: [id number] ORDERED: HE/4, Gross/Micro L3 ORDERED: , Gross/Micro L3 Pathological Diagnosis Cyst, left posterior scalp, excision: Features consistent with ruptured epidermal inclusion cyst with surrounding soft tissue inflammation. Clinical Information Inclusion cyst Gross Description A. Received in formalin labeled LT posterior scalp cyst are 2 ovoid portions of fibrofatty tissue, resected with robertson-gibson, wrinkled, hairbearing skin, 1 x 1.1 x 0.6 cm, and 1.7 x 0.8 x 0.6 cm. The smaller specimen is inked green with the larger specimen inked black. Serial sections reveal gibson-yellow, fibrous, dull and uniform cut surfaces. The specimen is entirely submitted. Cassettes: A1 Intact polar tips from larger specimen A2 Trisected center of larger specimen A3 Intact polar tips from smaller specimen A4 Central aspect of smaller specimen (Forjenny, [id number])JG -- Specimen: [id number] Received: 09/09/24 Status: NASIR [place] Num: [id number] Spec Type: Surgical Subm Dr: Rehana Reinoso,DO Tissues: A Skin Cyst (LT POSTERIOR SCALP CYST) Procedures: HE/4, Gross/Micro L3 -- Patient: Uzma Ramirez [id number] (Continued) -- Specimen: [id number] Received: 09/09/24 (Continued) Signed (signatu re on file) Andreas Meier MD 09/10/24 1711 -- Specimen: [id number] Received: 09/09/24 Status: NASIR [place] Num: [id number] Spec Type: Surgical Subm Dr: Rehana Reinoso DO Tissues: A Skin Cyst (LT POSTERIOR SCALP CYST) Procedures: /, Gross/Micro L3 -- Patient: Uzma Ramirez [id number] (Continued) -- Specimen: [id number] Received: 09/09/24 (Continued) CPT Codes 88814 -- -- Specimen: [id number] Received: 09/09/24 Status: NASIR Clau Num: [id number] Spec Type: Surgical Subm Dr: Rehana Reinoso DO Tissues: A Skin Cyst (LT POSTERIOR SCALP CYST) Procedures: HE/4, Eddie/Micro L3 -- Patient: Uzma Ramirez [id number] (Continued) -- Signed (signatu re on file) Andreas Meier MD 09/10/24 1711 Normal [facility] Unlisted [facility]on 09-08-2024 [facility] Colonoscopyon 02-05-2024 [facility] Raffaele 02-05-2024 L Specimen: [id number] Received: 02/05/241353 Status: NASIR Clau Num: [id number] Spec Type: Surgical Subm Dr: Rehana Reinoso DO Tissues: A Colon Biopsy (SIGMOID POLYP) B Colon Biopsy (CECUM) C Colon Biopsy (DESC) D Colon Biopsy (RECTAL SIGMOID JUNCTION) Procedures: EARL/Gilberto Gross/Micro L4/4 Age/ Patient Sex Location Account Attending Physician Uzma Ramirez 68/F LABE[facility] [id number] Rehana Reinoso,DO SPEC NUM: [id number] RECD: 02/05/24 STATUS: NASIR [place] NUM: [id number] MARIBELL: 02/05/24- DR: Rehana Reinoso DO ENTERED: 02/05/24 [facility] DR: Fab,Lab SPEC TYPE: Surgical DEPT: FLIP FRANZ ORDERED: HE/8, Gross/Micro L4/4 ORDERED: HE/8, Gross/Micro L4/4 This Amended Report is issued to correct the following: -To correct the dictation error of Part A specimen Previously Reported as: A, sigmoid polyp polypectomy: -Tubulovillous adenoma with high-grade feature -Negative cauterized submucosal margin is also provided Amended Report Information: A, sigmoid polyp polypectomy: -Tubulovillous adenoma without high-grade feature -Negative cauterized submucosal margin is also provided Addendum Signed (signature on file) Hermes Antony MD 02/12/24 0857 -- Pathological Diagnosis A, sigmoid polyp polypectomy: -Tubulovillous adenoma with high-grade feature -Negative cauterized submucosal margin is also provided B, cecum polyp polypectomy: -- Specimen: [id number] Received: 02/05/24 Status: NASIR Clau Num: [id number] Spec Type: Surgical Subm Dr: Rehana Reinoso DO Tissues: A Colon Biopsy (SIGMOID POLYP) B Colon Biopsy (CECUM) C Colon Biopsy (DESC) D Colon Biopsy (RECTAL SIGMOID JUNCTION) Procedures: KEVEN, Gross/Micro L4/4 -- Patient: Uzma Ramirez Faizan [id number] (Continued) -- Specimen: [id number] Received: 02/05/24 (Continued) Pathological Diagnosis (Continued) Signed (signatu re on file) Hermes Antony MD 02/08/24 1856 -- Specimen: [id number] Received: 02/05/24 Status: YOLITrevon Rebess Num: [id number] Spec Type: Surgical Subm Dr: Rehana Reinoso DO Tissues: A Colon Biopsy (SIGMOID POLYP) B Colon Biopsy (CECUM) C Colon Biopsy (DESC) D Colon Biopsy (RECTAL SIGMOID JUNCTION) Procedures: , Gross/Micro L4/4 -- Patient: Uzma Ramirez Faizan [id number] (Continued) -- Specimen: [id number] Received: 02/05/24-1352 (Continued) Pathological Diagnosis (Continued) -Tubular adenomatous polyp in both fragments C, descending colon polyp polypectomy: -Small low-grade adenomatous polyp D, rectosigmoid junction biopsy: -Benign hyperplastic polyp with associated minor chronic ulceration in the superficial lamina propria Clinical Information Colon polyps Gross Description A, received in formalin with patient name and date of , labeled as sigmoid polyp, is 1 polypoid mucosal fragment measuring about 1 x 0.7 x 0.5 cm., Totally submitted in cassette A1 in bisection and inked. B, received in formalin with patient name and date of , labeled as cecal polyp, are 2 gibson mucosal pieces of 2-4 mm in sizes each. Totally submitted in cassette B1. C, received in formalin with patient name and date of , labeled as descending colon polyp, is 1 gibson-pink mucosal polyp of 2 mm. Totally submitted in cassette C1. D, received in formalin with patient name and date of , labeled as rectosigmoid junction, is 1 gibson-pink mucosal piece of 2 mm, totally submitted in cassette D1. CPT Codes 04042 x 4 -- -- Specimen: [id number] Received: 02/05/24 Status: NASIR [place] Num: [id number] Spec Type: Surgical Subm Dr: Rehana Reinoso DO Tissues: A Colon Biopsy (SIGMOID POLYP) B Colon Biopsy (CECUM) C Colon Biopsy (DESC) D Colon Biopsy (RECTAL SIGMOID JUNCTION) Procedures: HE/Gilberto, Gross/Micro L4/4 -- Patient: Uzma Ramirez [id number] (Continued) -- (more content not included)... Normal [facility] Surgical PathologyOrdered By : Katherine Rubio on 02-05-2024 [employer] ANTICARDIOLIPIN AB (AKASH) IGA /IGG/IGMon 02-21-2023 Anticardiolipin Ab,IgA,Qn <9 Normal 0-11 [facility] Comment on above: Result Comment: Nega tive: <12 Indeterminate: 12 - 20 Low-Med Positive: >20 - 80 High Positive: >80 Performed By: #### A CAQUAN #### [facility] [address] [place] [address] Dr. Myrna Antony Anticardiolipin Ab,IgG,Qn <9 Normal 0-14 [facility] Comment on above: Result Comment: Nega tive: <15 Indeterminate: 15 - 20 Low-Med Positive: >20 - 80 High Positive: >80 Performed By: #### A CAQUAN #### [facility] [address] [place] [address] Dr. Myrna Antony Anticardiolipin Ab,IgM,Qn 22 MPL U/mL Critically high 0-12 [facility] Comment on above: Result Comment: Nega tive: <13 Indeterminate: 13 - 20 Low-Med Positive: >20 - 80 High Positive: >80 Performed By: #### A CALISETTE #### [facility] [address] [place] [address] Dr. Myrna Antony CRPon 02-20-2023 CRP [Mass/Vol] mg/L Normal <=1.0 [facility] Comment on above: Performed By: #### C RP #### [facility] [address] [place] [address] Dr. Myrna Antony SED RATE WESTBANNERRENon 2022 SED RATE 32 mm/hr Critically high <=30 [facility] Comment on above: Performed By: #### A CAQUAN #### [facility] [address] [place] [address] Dr. Myrna Antony CBC AUTO DIFFon 12-24-2022 BASO # 0.0 103/ul Normal 0.0-0.1 [facility] Comment on above: Performed By: #### C BC #### [facility] [address] [place] [address] Dr. Myrna Antony Basophils/100 WBC (Bld) 0.5 % Normal 0.2-2.0 [facility] Comment on above: Performed By: #### C BC #### [facility] [address] [place] [address] Dr. Myrna Antony EO # 0.3 103/ul Normal 0.0-0.7 [facility] Comment on above: Performed By: #### C BC #### [facility] [address] [place] [address] Dr. Myrna Antony Eosinophils/100 WBC (Bld) 3.9 % Normal 0.9-7.0 [facility] Comment on above: Performed By: #### C BC #### [facility] [address] [place] [address] Dr. Myrna Antony Erythrocyte distribution width (RBC) [Ratio] 13.6 % Normal 11.0-15.0 [facility] Comment on above: Performed By: #### C BC #### [facility] [address] [place] [address] Dr. Myrna Antony Hematocrit (Bld) [Volume fraction] 40.4 % Normal 36.0-48.0 [facility] Comment on above: Performed By: #### C BC #### [facility] [address] [place] [address] Dr. Myrna Antony Hemoglobin (Bld) [Mass/Vol] 13.5 g/dL Normal 12.0-16.0 [facility] Comment on above: Performed By: #### C BC #### [facility] [address] [place] [address] Dr. Myrna Antony IG # 0.02 10e3/ul Normal 0.00-0.03 [facility] Comment on above: Performed By: #### C BC #### [facility] [address] [place] [address] Dr. Myrna Antony IG % 0.2 % Normal 0.0-0.5 [facility] Comment on above: Performed By: #### C BC #### [facility] [address] [place] [address] Dr. Myrna Antony LYMPH # 1.5 103/ul Normal 1.2-3.8 [facility] Comment on above: Performed By: #### C BC #### [facility] [address] [place] [address] Dr. Myrna Antony Lymphocytes/100 WBC (Bld) 19.2 % Critically low 20.5-60.0 [facility] Comment on above: Performed By: #### C BC #### [facility] [address] [place] [address] Dr. Myrna Antony MANUAL DIFF REQ NO Normal [facility] Comment on above: Performed By: #### C BC #### [facility] [address] [place] [address] Dr. Myrna Antony MCH (RBC) [Entitic mass] 29.7 pg Normal 26.7-34.0 [facility] Comment on above: Performed By: #### C BC #### [facility] [address] [place] [address] Dr. Myrna Antony MCHC (RBC) [Mass/Vol] 33.4 g/dL Normal 29.9-35.2 [facility] Comment on above: Performed By: #### C BC #### [facility] [address] [place] [address] Dr. Myrna Antony MCV (RBC) [Entitic vol] 89.0 fL Normal 81.0-99.0 [facility] Comment on above: Performed By: #### C BC #### [facility] [address] [place] [address] Dr. Myrna Antony MONO # 0.8 103/ul Normal 0.3-0.8 [facility] Comment on above: Performed By: #### C BC #### [facility] [address] [place] [address] Dr. Myrna Antony Monocytes/100 WBC (Bld) 10.2 % Normal 1.7-12.0 [facility] Comment on above: Performed By: #### C BC #### [facility] [address] [place] [address] Dr. Myrna Antony NEUT # 5.3 103/ul Normal 1.4-6.5 [facility] Comment on above: Performed By: #### C BC #### [facility] [address] [place] [address] Dr. Myrna Antony Neutrophils/100 WBC (Bld) 66.0 % Normal 43.0-75.0 [facility] Comment on above: Performed By: #### C BC #### [facility] [address] [place] [address] Dr. Myrna Antony Platelet mean volume (Bld) [Entitic vol] 9.2 fL Critically low 9.5-13.5 [facility] Comment on above: Performed By: #### C BC #### [facility] [address] [place] [address] Dr. Myrna Antony PLT 277 103/ul Normal 150-450 [facility] Comment on above: Performed By: #### C BC #### [facility] [address] [place] [address] Dr. Myrna Antony RBC 4.54 106/ul Normal 4.20-5.40 [facility] Comment on above: Performed By: #### C BC #### [facility] [address] [place] [address] Dr. Myrna Antony WBC 8.0 103/ul Normal 4.0-11.0 [facility] Comment on above: Performed By: #### C BC #### [facility] [address] [place] [address] Dr. Myrna Antony LIPID PROFILEon 12-24-2022 CHOL-HDL RATIO NORM SEE BELOW Normal [facility] Comment on above: Result Comment: 3.3 - 4.4 LOW RISK 4.4 - 7.1 AVERAGE RISK 7.1 - 11.0 MODERATE RISK >11.0 HIGH RISK Performed By: #### A CAQUAN #### [facility] [address] [place] [address] Dr. Myrna Antony Cholesterol [Mass/Vol] 192 mg/dL Normal <=200 [facility] Comment on above: Performed By: #### A CAQUAN #### [facility] [address] [place] [address] Dr. Myrna Antony Cholesterol in HDL [Mass/Vol] 69 mg/dL Critically high 40-60 [facility] Comment on above: Performed By: #### A CAQUAN #### [facility] [address] [address] [address] Myrna Antony Cholesterol in LDL [Mass/Vol] 99.8 mg/dL Normal [facility] Comment on above: Performed By: #### A CAQUAN #### [facility] [address] [address] [address] Myrna Antony Cholesterol.total/Choles terol in HDL [Mass ratio] 2.8 {ratio} Normal [facility] Comment on above: Performed By: #### A CAQUAN #### [facility] [address] [address] [address] Myrna Antony HDL NORMAL > or = 60 mg/dl - LOW CARDIOVASCULAR RISK <40 mg/dl - HIGH CARDIOVASCULAR RISK Normal [facility] Comment on above: Performed By: #### A CAQUAN #### [facility] [address] [address] [address] Myrna Antony LDL CALC NORMAL SEE BELOW Normal [facility] Comment on above: Result Comment: <100 mg/dl OPTIMAL 100 - 129 mg/dl NEAR OR ABOVE OPTIMAL 130 - 159 mg/dl BORDERLINE HIGH 160 - 189 mg/dl HIGH >190 mg/dl VERY HIGH Performed By: #### A CAQUAN #### [facility] [address] [address] [address] Myrna Antony Triglyceride [Mass/Vol] 116 mg/dL Normal <=150 T [facility] Comment on above: Performed By: #### A CAQUAN #### [facility] [address] [address] [address] Myrna Antony VLDL CALC 23.2 mg/dL Normal [facility] Comment on above: Performed By: #### A CAQUAN #### [facility] [address] [address] [address] Myrna Antony PROF 14(COMP METB)on 023 Albumin [Mass/Vol] 3.9 g/dL Normal 3.4-5.0 [facility] Comment on above: Performed By: #### A CAQUAN #### [facility] [address] [address] [address] Myrna Antony Albumin/Globulin [Mass ratio] 1.1 {ratio} Normal [facility] Comment on above: Performed By: #### A CAQUAN #### [facility] [address] [place] [address] Dr. Myrna Antony ALP [Catalytic activity/Vol] 57 U/L Normal 46-116 [facility] Comment on above: Performed By: #### A CAQUAN #### [facility] [address] [address] [address] Myrna Antony ALT [Catalytic activity/Vol] 39 U/L Normal 14-59 [facility] Comment on above: Performed By: #### A CAQUAN #### [facility] [address] [place] [address] Dr. Myrna Antony Anion gap [Moles/Vol] 12.7 mmol/L Normal [facility] Comment on above: Performed By: #### A CAQUAN #### [facility] [address] [place] [address] Dr. Myrna Antony AST [Catalytic activity/Vol] 32 U/L Normal 15-37 [facility] Comment on above: Performed By: #### A CAQUAN #### [facility] [address] [place] [address] Dr. Myrna Antony Bilirubin [Mass/Vol] 1.4 mg/dL Critically high 0.2-1.0 [facility] Comment on above: Performed By: #### A CAQUAN #### [facility] [address] [place] [address] Dr. Myrna Antony Calcium [Mass/Vol] 9.6 mg/dL Normal 8.5-10.1 [facility] Comment on above: Performed By: #### A CAQUAN #### [facility] [address] [place] [address] Dr. Myrna Antony Chloride [Moles/Vol] 103 mmol/L Normal 98-107 [facility] Comment on above: Performed By: #### A CAQUAN #### [facility] [address] [place] [address] Dr. Myrna Antony CO2 [Moles/Vol] 26.5 mmol/L Normal 21.0-32.0 [facility] Comment on above: Performed By: #### A CAQUAN #### [facility] [address] [address] [address] Myrna Antony Creatinine [Mass/Vol] 1.06 mg/dL Critically high 0.55-1.02 [facility] Comment on above: Performed By: #### A CAQUAN #### [facility] [address] [address] [address] Myrna Antony EGFR-AF BOTSWANAN >60 Normal >=60 [facility] Comment on above: Performed By: #### A CAQUAN #### [facility] [address] [address] [address] Myrna Antony EGFR-NON AF BOTSWANAN 52 mL/min/1.73m2 Critically low >=60 [facility] Comment on above: Performed By: #### A CAQUAN #### [facility] [address] [address] [address] Myrna Antony Globulin (S) [Mass/Vol] 3.6 g/dL Normal T [facility] Comment on above: Performed By: #### A CAQUAN #### [facility] [address] [place] [address] Dr. Myrna Antony Glucose [Mass/Vol] 104 mg/dL Normal 74-106 [facility] Comment on above: Performed By: #### A CAQUAN #### [facility] [address] [address] [address] Myrna Antony Potassium [Moles/Vol] 4.2 mmol/L Normal 3.5-5.1 [facility] Comment on above: Performed By: #### A CAQUAN #### [facility] [address] [address] [address] Myrna Antony Protein [Mass/Vol] 7.5 g/dL Normal 6.4-8.2 [facility] Comment on above: Performed By: #### A CAQUAN #### [facility] [address] [address] [address] Myrna Antony Sodium [Moles/Vol] 138 mmol/L Normal 136-145 [facility] Comment on above: Performed By: #### A BHAVESH #### [facility] [address] [address] [address] Myrna Antony Urea nitrogen [Mass/Vol] 29.0 mg/dL Critically high 7.0-18 .0 [facility] Comment on above: Performed By: #### A BHAVESH #### [facility] [address] [address] [address] Myrna Antony Urea nitrogen/Creatinine [Mass ratio] 27.4 mg/mg Normal [facility] Comment on above: Performed By: #### A BHAVESH #### [facility] [address] [place] [address] Dr. Myrna Antony Covid-19 PCR (CVDTB)on 11-04 SARS-CoV-2 (COVID-19) RNA NEO+probe Ql (Unsp spec) Not detected Normal NOT DETECTED [facility] Comment on above: Result Comment: This test is not yet approved or cleared by the [place] FDA. When there are no FDA-approved or cleared tests available, and other criteria are met, FDA can make tests available under an emergency access mechanism called an Emergency Use Authorization (EUA). The EUA for this test is supported by the [place] of Health and Human Service's (HHS's) declaration [...] SARS-CoV-2. Performed By: #### C VDTBH #### [facility] [id number] Myrna Antony ANTICARDIOLIPIN AB (AKASH) IGA /IGG/IGMon 11-01-2022 Anticardiolipin Ab,IgA,Qn <9 Normal 0-11 [facility] Comment on above: Result Comment: Nega tive: <12 Indeterminate: 12 - 20 Low-Med Positive: >20 - 80 High Positive: >80 Performed By: #### A CAQUAN #### [facility] [address] [address] [address] Myrna Antony Anticardiolipin Ab,IgG,Qn <9 Normal 0-14 [facility] Comment on above: Result Comment: Nega tive: <15 Indeterminate: 15 - 20 Low-Med Positive: >20 - 80 High Positive: >80 Performed By: #### A CAQUAN #### [facility] [address] [address] [address] Myrna Antony Anticardiolipin Ab,IgM,Qn 57 MPL U/mL Critically high 0-12 [facility] Comment on above: Result Comment: Nega tive: <13 Indeterminate: 13 - 20 Low-Med Positive: >20 - 80 High Positive: >80 Performed By: #### A CAQUAN #### [facility] [address] [address] [address] Myrna Antony CRPon 10-31-2022 CRP [Mass/Vol] mg/L Normal <=1.0 [facility] Comment on above: Performed By: #### C RP #### [facility] [address] [place] [address] Dr. Myrna Antony SED RATE [facility] 2021 SED RATE 39 mm/hr Critically high <=30 [facility] Comment on above: Performed By: #### S EDR #### [facility] [address] [place] [address] Dr. Myrna Antony COVID/FLU RT-PCRon 2 SARS-CoV-2 (COVID-19) RNA NEO+probe Ql (Unsp spec) Negative [employer] Other COVID/FLU RT-PCR Positive [employer] Other COVID/FLU RT-PCR Negative [employer] Other LIPID PROFILEon 07-30-2022 CHOL-HDL RATIO NORM SEE BELOW Normal [facility] Comment on above: Result Comment: 3.3 - 4.4 LOW RISK 4.4 - 7.1 AVERAGE RISK 7.1 - 11.0 MODERATE RISK >11.0 HIGH RISK Performed By: #### A CAQUAN #### [facility] [address] [place], [place] [address] Dr. Myrna Antony Cholesterol [Mass/Vol] 177 mg/dL Normal <=200 [facility] Comment on above: Performed By: #### A CAQUAN #### [facility] [address] [place], [place] [address] Dr. Myrna Antony Cholesterol in HDL [Mass/Vol] 70 mg/dL Critically high 40-60 [facility] Comment on above: Performed By: #### A CAQUAN #### [facility] [address] [address] [address] Myrna Antony Cholesterol in LDL [Mass/Vol] 92.4 mg/dL Normal [facility] Comment on above: Performed By: #### A CAQUAN #### [facility] [address] [address] [address] Myrna Antony Cholesterol.total/Choles terol in HDL [Mass ratio] 2.5 {ratio} Normal [facility] Comment on above: Performed By: #### A CAQUAN #### [facility] [address] [address] [address] Myrna Antony HDL NORMAL > or = 60 mg/dl - LOW CARDIOVASCULAR RISK <40 mg/dl - HIGH CARDIOVASCULAR RISK Normal [facility] Comment on above: Performed By: #### A CAQUAN #### [facility] [address] [place], [place] [address] Dr. Myrna Antony LDL CALC NORMAL SEE BELOW Normal [facility] Comment on above: Result Comment: <100 mg/dl OPTIMAL 100 - 129 mg/dl NEAR OR ABOVE OPTIMAL 130 - 159 mg/dl BORDERLINE HIGH 160 - 189 mg/dl HIGH >190 mg/dl VERY HIGH Performed By: #### A CAQUAN #### [facility] [address] [address] [address] Myrna Antony Triglyceride [Mass/Vol] 73 mg/dL Normal <=150 T [facility] Comment on above: Performed By: #### A CAQUAN #### [facility] [address] [address] [address] Myrna Antony VLDL CALC 14.6 mg/dL Normal [facility] Comment on above: Performed By: #### A MALLORYAN #### [facility] [address] [place] [address] Dr. Myrna Antony SGOTon 07-30-2022 AST [Catalytic activity/Vol] 34 U/L Normal 15-37 [facility] Comment on above: Performed By: #### A MALLORYAN #### [facility] [address] [place] [address] Dr. [facility] ALT [Catalytic activity/Vol] 44 U/L Normal 14-59 [facility] Comment on above: Performed By: #### A MALLORYAN #### [facility] [address] [place] [address] Dr. Myrna Antony Office Visit (Cardiology)on 07-20-2022 Follow-up visit Diagnoses/Problems Assessed Essential hypertension (401.9) (I10) Hyperlipidemia, unspecified (272.4) (E78.5) Sinus bradycardia (427.89) (R00.1) Former smoker (V15.82) (Z87.891) Overweight (278.02) (E66.3) Orders Hyperlipidemia, unspecified Renew: Rosuvastatin Calcium 40 MG Oral Tablet; TAKE 1 TABLET DAILY ALT - Alanine Aminotransferase, Serum; Status:Active; Requested for:[id number]; AST; Status:Active; Requested for:[id number]; Lipid Panel; Status:Active; Requested for:[id number]; SocHx: Former smoker Tobacco Use Screening; Status:Complete; Done: [id number] Patient Instructions Please bring all medicines, vitamins, [...] is on prednisone managed by rheumatology Lei Perez MD, [facility] Active Problems Problems Essential hypertension [...] Kyle; 12/03/2021 8:32:38 AM Penicillins Recorded By: Imra Kyle; 12/03/2021 8:32:38 AM Percocet TABS Recorded By: Irma yKle; 12/03/2021 8:32:38 AM Sulfur Recorded By: Irma [...] negative for complaint. Vitals Vital Signs Recorded: [id number] 01:49PM Heart Rate66, L Radial Oxveuxci854, RUE, Sitting Nbkqzwdko51, RUE, Sitting Height5 ft 6 in Tobacco [...] trachea midl (more content not included)... Normal [facility] Tobacco Screening.on 022 Adult depression screening assessment No [facility] 600 DO Work Phone: Fall risk assessment a) No falls within the last year [facility] [employer] 600 DO Work Phone: Tobacco use status CPHS b) No [facility] 600 DO Work Phone: Activated partial thrombopla stin time (aPTT) in platelet poor plasma by coagulation aOrdered By: Teetee Rizvi on 07-04-2022 aPTT Coag (PPP) [Time] 28.8 s 25.1-36.5 [facility] Albumin [Mass/volume] in Ser um or PlasmaOrdered By: Teetee Rizvi on 07-04-2022 Albumin [Mass/Vol] 3.7 g/dL 3.2-5.5 [facility] Automated erythrocytes count in urine sediment (number/area)Ordered By: Teetee Rizvi on 07-04-2022 RBC Auto (Urine sed) [#/Area] 5-9 [HPF] 0-4 [facility] Automated leukocytes count i n urine sediment (number/area)Ordered By: Teetee Rizvi on 07-04-2022 WBC Auto (Urine sed) [#/Area] 1-2 [HPF] 0-4 [facility] Bilirubin Test strip Ql (U)O rdered By: Teetee Rizvi on 07-04-2022 Bilirubin Ql (U) Negative Negative [facility] Blood hemoglobin measurement (mass/volume)Ordered By: Teetee Rizvi on 07-04-2022 Hemoglobin (Bld) [Mass/Vol] 12.6 g/dL 11.8-15.4 [facility] Color Auto (U)Ordered By: Cesar Rizvi on 07-04-2022 Color (U) Yellow Yellow [facility] Creatinine [Mass/volume] in UrineOrdered By: Teetee Rizvi on 07-04-2022 Creatinine (U) [Mass/Vol] 235.6 mg/dL [facility] Comment on above: No reference range e stablished Creatinine and Glomerular fi ltration rate.predicted panel (S/P/Bld)Ordered By: Teetee Rizvi on 07-04-2022 Creatinine [Mass/Vol] 0.76 mg/dL 0.44-1.03 [facility] Erythrocyte distribution wid th Auto (RBC) [Ratio]Ordered By: Teetee Rizvi on 07-04-2022 Erythrocyte distribution width (RBC) [Ratio] 14.1 % 11.9-15.3 [facility] Estimated glomerular filtrat ion rate (GFR) non- AmericanOrdered By: Teetee Rizvi on 07-04-2022 GFR/1.73 sq M.predicted among non-blacks MDRD (S/P/Bld) [Vol rate/Area] > 60 mL/Min [facility] Globulin Calc (S) [Mass/Vol] Ordered By: Teetee Rizvi on 07-04-2022 Globulin (S) [Mass/Vol] 3.1 g/dL [facility] Hematocrit Auto (Bld) [Volum e fraction]Ordered By: Teetee Rizvi on 07-04-2022 Hematocrit (Bld) [Volume fraction] 38.3 % 34.0-46.4 [facility] Hepatitis B virus surface Ag [Presence] in Serum or Plasma by ImmunoassayOrdered By: Teetee Rizvi on 07-04-2022 HBV surface Ag IA Ql Negative Negative [facility] Comment on above: Performed at: [place] [id number] [employer] Hel[employer]: Cody Williamson PhD, Phone: [phone] Ketones Auto test strip (U) [Mass/Vol]Ordered By: Teetee Rizvi on 07-04-2022 Ketones (U) [Mass/Vol] Trace Negative [facility] - CoagulationOrde red By: Teetee Rizvi on 07-04-2022 PT Coag (PPP) [Time] 10.1 s 9.0-12.9 [facility] - UrinalysisOrder ed By: Teetee Rizvi on 07-04-2022 Hyaline casts LM Ql (Urine sed) 9-19 [LPF] 0-8 [facility] MCH Auto (RBC) [Entitic mass ]Ordered By: Teetee Rizvi on 07-04-2022 MCH (RBC) [Entitic mass] 29.1 pg 24.7-34.3 [facility] MCHC Auto (RBC) [Mass/Vol]Or dered By: Teetee Rizvi on 07-04-2022 MCHC (RBC) [Mass/Vol] 32.8 g/dL 32.0-35.0 [facility] MCV Auto (RBC) [Entitic vol] Ordered By: Teetee Rizvi on 07-04-2022 MCV (RBC) [Entitic vol] 88.7 fL 80-100 [facility] Nitrite Test strip Ql (U)Ord ered By: Teetee Rizvi on 07-04-2022 Nitrite Ql (U) Negative Negative [facility] No Panel InformationOrdered By: Teetee Rizvi on 07-04-2022 25-Hydroxy Vitamin D Total 42.1 ng/mL 30-100 [facility] Comment on above: VITAMIN D STATUS 25( [place])VITAMIN D RANGE (ng/mL) Deficient <20 Insufficient 20 to <30 Sufficient 30 to 100 Reference: Vero MF,Nara NC, Darius RHODES, et al. Evaluation,treatment, and prevention of vitamin D deficiency; an Endocrine Society clinical practice guideline. JCEM. 2010; 96(7):1911-30. Estimated GFR () > 60 mL/Min [facility] Comment on above: GFR estimated refere nce range: According to KDOQI guidelines, <60 ml/min/1.73m2 is sufficient to diagnose a patient with chronic kidney disease. Pharmacy Creatinine Clearance (Chem 76.30 [facility] Platelet mean volume Auto (B ld) [Entitic vol]Ordered By: Teetee Rizvi on 07-04-2022 Platelet mean volume (Bld) [Entitic vol] 8.0 fL 6.3-10.7 [facility] Platelet poor plasma interna tional normalized ratio (INR) by coagulation assay (relatOrdered By: Teetee Rizvi on 07-04-2022 INR Coag (PPP) [Relative time] 0.9 {INR} [facility] Comment on above: INR Therapeutic Rang [...] 07-04-2022 Platelets (Bld) [#/Vol] 269 10*3/uL 150-450 [facility] Protein Auto test strip (U) [Mass/Vol]Ordered By: Teetee Rizvi on 07-04-2022 Protein (U) [Mass/Vol] 100 mg/dL Negative [facility] Protein [Mass/volume] in Ser um or PlasmaOrdered By: Teetee Rizvi on 07-04-2022 Protein [Mass/Vol] 6.8 g/dL 6.1-7.9 [facility] Protein [Mass/volume] in Uri neOrdered By: Teetee Rizvi on 07-04-2022 Protein (U) [Mass/Vol] 61 mg/dL 0-9 [facility] RBC Auto (Bld) [#/Vol]Ordere d By: Teetee Rizvi on 07-04-2022 RBC (Bld) [#/Vol] 4.32 10*6/uL 3.60-5.00 [facility] Serum or plasma alanine márquez otransferase measurement without P-5'-P (enzymatic activiOrdered By: Teetee Rizvi on 07-04-2022 ALT No additional P-5'-P [Catalytic activity/Vol] 20 U/L 10-60 [facility] Serum or plasma albumin/glob ulin mass ratioOrdered By: Teetee Rizvi on 07-04-2022 Albumin/Globulin [Mass ratio] 1.2 {ratio} [facility] Serum or plasma alkaline adela sphatase measurement (enzymatic activity/volume)Ordered By: Teetee Rizvi on 07-04-2022 ALP [Catalytic activity/Vol] 61 U/L 32-92 [facility] Serum or plasma anion gap de terminationOrdered By: Teetee Rizvi on 07-04-2022 Anion gap [Moles/Vol] 13.7 mmol/L 6.0-15.0 [facility] Serum or plasma aspartate am inotransferase measurement (enzymatic activity/volume)Ordered By: Teetee Rizvi on 07-04-2022 AST [Catalytic activity/Vol] 22 U/L 10-42 [facility] Serum or plasma calcium kiana urement (mass/volume)Ordered By: Teetee Rizvi on 07-04-2022 Calcium [Mass/Vol] 8.9 mg/dL 8.2-10.2 [facility] Serum or plasma chloride melvin surement (moles/volume)Ordered By: Teetee Rizvi on 07-04-2022 Chloride [Moles/Vol] 106 mmol/L 95-114 [facility] Serum or plasma complement C 3 measurement (mass/volume)Ordered By: Teetee Rizvi on 07-04-2022 Complement C3 [Mass/Vol] 144 mg/dL 82-167 [facility] Comment on above: Performed at: [employer] [address] [id number] [employer]: Cody Williamson PhD, Phone: [phone] Serum or plasma complement C 4 measurement (mass/volume)Ordered By: Teetee Rizvi on 07-04-2022 Complement C4 [Mass/Vol] 22 mg/dL 12-38 [facility] Serum or plasma free cefurox greg measurement (mass/volume)Ordered By: Teetee Rizvi on 07-04-2022 Cefuroxime free [Mass/Vol] Negative Negative [facility] Comment on above: Performed at: [employer] [address] [id number] [employer]: Cody Williamson PhD, Phone: [phone] Serum or plasma glucose kiana urement (mass/volume)Ordered By: Teetee Rizvi on 07-04-2022 Glucose [Mass/Vol] 119 mg/dL 70-100 [facility] Comment on above: ADA recommended refe rence range Random Glucose Reference Range is dependent on time and content of last meal. Glucose of more than 200 mg/dL in a nonstressed, ambulatory subject supports the diagnosis of Diabetes Mellitus. Serum or plasma intact parat hyroid hormone measurement (mass/volume)Ordered By: Teetee Rizvi on 07-04-2022 Parathyrin.intact [Mass/Vol] 80.6 pg/mL [facility] Serum or plasma potassium me asurement (moles/volume)Ordered By: Teetee Rizvi on 07-04-2022 Potassium [Moles/Vol] 3.8 mmol/L 3.5-5.1 [facility] Serum or plasma sodium measu rement (moles/volume)Ordered By: Teetee Rizvi on 07-04-2022 Sodium [Moles/Vol] 139 mmol/L 136-146 [facility] Serum or plasma total biliru bin measurement (mass/volume)Ordered By: Teetee Rizvi on 07-04-2022 Bilirubin [Mass/Vol] 1.6 mg/dL 0.3-1.2 [facility] Comment on above: Samples from patient s who have taken Naproxen have shown spurious elevation in Total Bilirubin levels. A metabolite of Naproxen, O-desmethylnaproxen, has been shown to interfere with the Tess method for measuring Total Bilirubin. Serum or plasma total carbon dioxide measurement (moles/volume)Ordered By: Teetee Rizvi on 07-04-2022 CO2 [Moles/Vol] 23.1 mmol/L 22.0-30.0 [facility] Serum or plasma urea nitroge n measurement (mass/volume)Ordered By: Teetee Rizvi 07-04-2022 Urea nitrogen [Mass/Vol] 15 mg/dL 07-27 [facility] Serum or plasma uric acid me asurement (mass/volume)Ordered By: Teetee Rizvi 07-04-2022 Urate [Mass/Vol] 5.1 mg/dL 2.6-7.2 [facility] Specific gravity Auto test s trip (U) [Rel density]Ordered By: Teetee Rizvi 07-04-2022 Specific gravity (U) [Rel density] 1.021 1.001-1.030 [facility] Squamous epithelial cells de tection in urine sediment by light microscopyOrdered By: Teetee Rizvi 07-04-2022 Epithelial cells.squamous LM Ql (Urine sed) 1-2 [HPF] 0-2 [facility] Urine bacteria detection by automated methodOrdered By: Teetee Rizvi on 07-04-2022 Bacteria Auto Ql (U) None seen None Seen [facility] Urine clarity by refractomet ry automatedOrdered By: Teetee Rizvi on 07-04-2022 Clarity Refractometry automated (U) Clear Clear [facility] Urine glucose measurement by automated test strip (mass/volume)Ordered By: Teetee Rizvi on 07-04-2022 Glucose Auto test strip (U) [Mass/Vol] Normal mg/dL Normal [facility] Urine hemoglobin detection b y automated test stripOrdered By: Teetee Rizvi on 07-04-2022 Hemoglobin Auto test strip Ql (U) Negative Negative [facility] Urine leukocyte esterase det ection by automated test stripOrdered By: Teetee Rizvi on 07-04-2022 Leukocyte esterase Auto test strip Ql (U) Negative Negative [facility] Urine protein/creatinine rat ioOrdered By: Teetee Rizvi on 07-04-2022 Protein/Creatinine (U) [Ratio] 259 mg/g{Cre} 0-200 [facility] Urine sediment renal epithel ial cell count by microscopy (number/high power field)Ordered By: Teetee Rizvi on 07-04-2022 Epithelial cells.renal LM.HPF (Urine sed) [#/Area] None seen [HPF] 0-1 [facility] Urobilinogen Auto test strip (U) [Mass/Vol]Ordered By: Teetee Rizvi on 07-04-2022 Urobilinogen (U) [Mass/Vol] Normal mg/dL Normal [facility] WBC Auto (Bld) [#/Vol]Ordere d By: Teetee Rizvi on 07-04-2022 WBC (Bld) [#/Vol] 6.9 10*3/uL 3.8-11.6 [facility] pH Auto test strip (U)Ordere d By: Teetee Rizvi on 07-04-2022 pH (U) 6.5 [pH] 5.0-9.0 [facility] ANTICARDIOLIPIN AB (AKASH) IGA /IGG/IGMon 07-03-2022 Anticardiolipin Ab,IgA,Qn <9 Normal 0-11 [facility] Comment on above: Result Comment: Nega tive: <12 Indeterminate: 12 - 20 Low-Med Positive: >20 - 80 High Positive: >80 Performed By: #### A MALLORYAN #### [facility] [address] [place] [address] [address] Myrna Antony Anticardiolipin Ab,IgG,Qn <9 Normal 0-14 [facility] Comment on above: Result Comment: Nega tive: <15 Indeterminate: 15 - 20 Low-Med Positive: >20 - 80 High Positive: >80 Performed By: #### A CAQUAN #### [facility] [address] [place], [place] [address] Dr. Myrna Antony Anticardiolipin Ab,IgM,Qn 44 MPL U/mL Critically high 0-12 [facility] Comment on above: Result Comment: Nega tive: <13 Indeterminate: 13 - 20 Low-Med Positive: >20 - 80 High Positive: >80 Performed By: #### A BHAVESH #### [facility] [address] [place] [address] [address] Myrna Antony CRPon 07-02-2022 CRP [Mass/Vol] mg/L Normal <=1.0 [facility] Comment on above: Performed By: #### C RP #### [facility] [address] [place] [address] Dr. Myrna Antony MG MAMM SCREEN 3D YAYO CADon 07-02-2022 MG MAMM SCREEN 3D YAYO CAD Patient: UZMA RAMIREZ Exam Date: 07/02/2022 : 1955 Gender:F Ordering : DR ERROL CORBIN M.D. Admission #: [id number] Family : DR FLORINDA FLOWERS M.D. Order #: [id number] CLICK HERE TO VIEW EXAM RADIOLOGY REPORT [...] uterine cancer at age 63. LOCATION: [facility] BREAST COMPOSITION: Scattered areas fibroglandular [...] MD on 07/02/2022 at 11:05 Normal [facility] SED RATE WESTERGRENon 2021 SED RATE 37 mm/hr Critically high <=[address] [facility] Comment on above: Performed By: #### S EDR #### [facility] [address] [place] [address] [address] Myrna Antony Automated erythrocytes count in urine sediment (number/area)Ordered By: Ryan Ortiz on 03-19-2022 RBC Auto (Urine sed) [#/Area] 20-49 [HPF] [facility] Automated leukocytes count i n urine sediment (number/area)Ordered By: Ryan Ortiz on 03-19-2022 WBC Auto (Urine sed) [#/Area] 3-4 [HPF] [facility] Automated urine hyaline cast s count (number/volume)Ordered By: Ryan Ortiz on 03-19-2022 Hyaline casts Auto (U) [#/Vol] None seen [LPF] [facility] Bilirubin Test strip Ql (U)O rdered By: Ryan Ortiz on 03-19-2022 Bilirubin Ql (U) Negative Negative [facility] Casts typing in urine sedime nt by light microscopyOrdered By: Ryan Ortiz on 03-19-2022 Casts LM Nom (Urine sed) None seen [LPF] None S een [facility] Color Auto (U)Ordered By: Rowdy ttmima Ortiz on 03-19-2022 Color (U) Dark yellow Yellow [facility] Creatinine and Glomerular fi ltration rate.predicted panel (S/P/Bld)Ordered By: Ryan Ortiz on 03-19-2022 Creatinine [Mass/Vol] 1.02 mg/dL 0.44-1.03 [facility] Erythrocyte sedimentation ra te by Photometric methodOrdered By: Ryan Ortiz on 03-19-2022 ESR Photometric method (Bld) [Velocity] 29 mm/hr 0-29 [facility] Estimated glomerular filtrat ion rate (GFR) non- AmericanOrdered By: Ryan Ortiz on 03-19-2022 GFR/1.73 sq M.predicted among non-blacks MDRD (S/P/Bld) [Vol rate/Area] 54 mL/Min [facility] Ketones Auto test strip (U) [Mass/Vol]Ordered By: Ryan Ortiz on 03-19-2022 Ketones (U) [Mass/Vol] Trace Negative [facility] Mucus LM Ql (Urine sed)Order ed By: Ryan Ortiz on 03-19-2022 Mucus Ql (Urine sed) 2+ [LPF] [facility] Nitrite Test strip Ql (U)Ord ered By: Ryan Ortiz on 03-19-2022 Nitrite Ql (U) Negative Negative [facility] No Panel InformationOrdered By: Ryan Ortiz on 03-19-2022 Estimated GFR () > 60 mL/Min [facility] Comment on above: GFR estimated refere nce range: According to KDOQI guidelines, <60 ml/min/1.73m2 is sufficient to diagnose a patient with chronic kidney disease. Pharmacy Creatinine Clearance (Chem N/A [facility] Protein Auto test strip (U) [Mass/Vol]Ordered By: Ryan Ortiz on 03-19-2022 Protein (U) [Mass/Vol] 100 mg/dL Negative [facility] Serum or plasma C reactive p rotein measurement (mass/volume)Ordered By: Ryan Ortiz on 03-19-2022 CRP [Mass/Vol] 0.9 mg/dL 0.0-1.0 [facility] Serum or plasma urea nitroge n measurement (mass/volume)Ordered By: Ryan Ortiz on 03-19-2022 Urea nitrogen [Mass/Vol] 28 mg/dL 9-23 [facility] Specific gravity Auto test s trip (U) [Rel density]Ordered By: Ryan Ortiz on 03-19-2022 Specific gravity (U) [Rel density] 1.026 1.001-1.030 [facility] Squamous epithelial cells de tection in urine sediment by light microscopyOrdered By: Ryan Ortiz on 03-19-2022 Epithelial cells.squamous LM Ql (Urine sed) 3-4 [HPF] [facility] Urine bacteria detection by automated methodOrdered By: Ryan Ortiz on 03-19-2022 Bacteria Auto Ql (U) None seen None Seen [facility] Urine clarity by refractomet ry automatedOrdered By: Ryan Ortiz on 03-19-2022 Clarity Refractometry automated (U) Clear Clear [facility] Urine glucose measurement by automated test strip (mass/volume)Ordered By: Ryan Ortiz on 03-19-2022 Glucose Auto test strip (U) [Mass/Vol] Normal mg/dL Normal [facility] Urine hemoglobin detection b y automated test stripOrdered By: Ryan Ortiz on 03-19-2022 Hemoglobin Auto test strip Ql (U) Negative Negative [facility] Urine leukocyte esterase det ection by automated test stripOrdered By: Ryan Ortiz on 03-19-2022 Leukocyte esterase Auto test strip Ql (U) 1+ Negative [facility] Urine sediment renal epithel ial cell count by microscopy (number/high power field)Ordered By: Ryan Ortiz on 03-19-2022 Epithelial cells.renal LM.HPF (Urine sed) [#/Area] None seen [HPF] [facility] Urobilinogen Auto test strip (U) [Mass/Vol]Ordered By: Ryan Ortiz on 03-19-2022 Urobilinogen (U) [Mass/Vol] Normal mg/dL Normal [facility] pH Auto test strip (U)Ordere d By: Ryan Ortiz on 03-19-2022 pH (U) 5.5 [pH] 5.0-9.0 [facility] CBC W Auto Differential pane l (Bld)on 02-15-2022 Basophils (Bld) [#/Vol] 0.04 10*3/uL Normal <0.[address] [facility] Comment on above: Order Comment: Speci men Type: BLOOD SPECIMEN Ordering Facility: [facility] Address: [address] [place] [address] Performed By: #### 5 7021-8 #### [facility] CLIA [id number] [address] [place] [address] Basophils/100 WBC (Bld) 0.4 % Normal [facility] Comment on above: Order Comment: Speci men Type: BLOOD SPECIMEN Ordering Facility: [facility] Address: [address] [place] [address] Performed By: #### 5 7021-8 #### [facility] CLIA [id number] [address] [place] [address] Differential cell count method Nom (Bld) Auto Normal [facility] Comment on above: Order Comment: Speci men Type: BLOOD SPECIMEN Ordering Facility: [facility] Address: [address] [place] [address] Performed By: #### 5 7021-8 #### [facility] CLIA [id number] [address] [place] [address] Eosinophils (Bld) [#/Vol] 0.14 10*3/uL Normal <0.[address] [facility] Comment on above: Order Comment: Speci men Type: BLOOD SPECIMEN Ordering Facility: [facility] Address: [address] [place] [address] Performed By: #### 5 7021-8 #### [facility] CLIA [id number] [address] [place] [address] Eosinophils/100 WBC (Bld) 1.4 % Normal [facility] Comment on above: Order Comment: Speci men Type: BLOOD SPECIMEN Ordering Facility: [facility] Address: [address] [place] [address] Performed By: #### 5 7021-8 #### [facility] CLIA [id number] [address] [place] [address] Erythrocyte distribution width (RBC) [Ratio] 14.4 % Normal 11.5-15.[address] [facility] Comment on above: Order Comment: Speci men Type: BLOOD SPECIMEN Ordering Facility: [facility] Address: [address] [place] [address] Performed By: #### 5 7021-8 #### [facility] CLIA [id number] [address] [place] [address] Hematocrit (Bld) [Volume fraction] 39.7 % Normal 36.0-46.[address] [facility] Comment on above: Order Comment: Speci men Type: BLOOD SPECIMEN Ordering Facility: [facility] Address: [address] [place] [address] Performed By: #### 5 7021-8 #### [facility] CLIA [id number] [address] [place] [address] Hemoglobin (Bld) [Mass/Vol] 12.7 g/dL Normal 11.5-15.[address] [facility] Comment on above: Order Comment: Speci men Type: BLOOD SPECIMEN Ordering Facility: [facility] Address: [address] [place] [address] Performed By: #### 5 7021-8 #### [facility] CLIA [id number] [address] [place] [address] IMMATURE GRAN % 0.3 % Normal [facility] Comment on above: Order Comment: Speci men Type: BLOOD SPECIMEN Ordering Facility: [facility] Address: [address] [place] [address] Performed By: #### 5 7021-8 #### [facility] CLIA [id number] [address] [place] [address] IMMATURE GRAN ABS 0.03 k/uL Normal <0.10 [facility] Comment on above: Order Comment: Speci men Type: BLOOD SPECIMEN Ordering Facility: [facility] Address: [address] [place] [address] Performed By: #### 5 7021-8 #### [facility] CLIA [id number] [address] [place] [address] Lymphocytes (Bld) [#/Vol] 4.34 10*3/uL High 1.00-4.[address] [facility] Comment on above: Order Comment: Speci men Type: BLOOD SPECIMEN Ordering Facility: [facility] Address: [address] [place] [address] Performed By: #### 5 7021-8 #### [facility] CLIA [id number] [address] [place] [address] Lymphocytes/100 WBC (Bld) 43.5 % Normal [facility] Comment on above: Order Comment: Speci men Type: BLOOD SPECIMEN Ordering Facility: [facility] Address: [address] [place] [address] Performed By: #### 5 7021-8 #### [facility] CLIA [id number] [address] [place] [address] MCH (RBC) [Entitic mass] 29.5 pg Normal 26.0-34.[address] [facility] Comment on above: Order Comment: Speci men Type: BLOOD SPECIMEN Ordering Facility: [facility] Address: [address] [place] [address] Performed By: #### 5 7021-8 #### [facility] CLIA [id number] [address] [place] [address] MCHC (RBC) [Mass/Vol] 32.0 g/dL Normal 30.5-36.0 [facility] Comment on above: Order Comment: Speci men Type: BLOOD SPECIMEN Ordering Facility: [facility] Address: [address] [place] [address] Performed By: #### 5 7021-8 #### [facility] CLIA [id number] [address] [place] [address] MCV (RBC) [Entitic vol] 92.1 fL Normal 80.0-100.0 [facility] Comment on above: Order Comment: Speci men Type: BLOOD SPECIMEN Ordering Facility: [facility] Address: [address] [place] [address] Performed By: #### 5 7021-8 #### [facility] CLIA [id number] [address] [place] [address] Monocytes (Bld) [#/Vol] 0.78 10*3/uL Normal <0.[address] [facility] Comment on above: Order Comment: Speci men Type: BLOOD SPECIMEN Ordering Facility: [facility] Address: [address] [place] [address] Performed By: #### 5 7021-8 #### [facility] [facility] CLIA [id number] [address] [place] [address] 65595 Monocytes/100 WBC (Bld) 7.8 % Normal C [facility] Comment on above: Order Comment: Speci men Type: BLOOD SPECIMEN Ordering Facility: [facility] Address: [address] [place] [address] Performed By: #### 5 7021-8 #### [facility] CLIA [id number] [address] [place] [address] 36406 Neutrophils (Bld) [#/Vol] 4.64 10*3/uL Normal 1.45-7.[address] [facility] Comment on above: Order Comment: Speci men Type: BLOOD SPECIMEN Ordering Facility: [facility] Address: [address] [place], [place] [address] Performed By: #### 5 7021-8 #### [facility] CLIA [id number] [address] [place] [address] 61452 Neutrophils/100 WBC (Bld) 46.6 % Normal [facility] Comment on above: Order Comment: Speci men Type: BLOOD SPECIMEN Ordering Facility: [facility] Address: [address] [place], [place] [address] Performed By: #### 5 7021-8 #### [facility] CLIA [id number] [address] [place] [address] Nucleated RBC (Bld) [#/Vol] 10*3/uL Normal <0.[address] [facility] Comment on above: Order Comment: Speci men Type: BLOOD SPECIMEN Ordering Facility: [facility] Address: [address] [place] [address] Performed By: #### 5 7021-8 #### [facility] CLIA [id number] [address] [place] [address]6076 Nucleated RBC/100 WBC (Bld) [Ratio] 0.0 /[address] [facility] Comment on above: Order Comment: Speci men Type: BLOOD SPECIMEN Ordering Facility: [facility] Address: [address] [place] [address] Performed By: #### 5 7021-8 #### [facility] CLIA [id number] [address] [place] [address] 13625 Platelet mean volume (Bld) [Entitic vol] 9.2 fL Normal 9.0-12.[address] [facility] Comment on above: Order Comment: Speci men Type: BLOOD SPECIMEN [facility]ing Facility: [facility] Address: [address] [place] [address] Performed By: #### 5 7021-8 #### [facility] CLIA [id number] [address] [place] [address]2897 Platelets (Bld) [#/Vol] 301 10*3/uL Normal 150-[address] [facility] Comment on above: Order Comment: Speci men Type: BLOOD SPECIMEN Ordering Facility: [facility] Address: [address] [place], [place] [address] Performed By: #### 5 7021-8 #### [facility] CLIA [id number] [address] [place] [address] 71605 RBC (Bld) [#/Vol] 4.31 10*6/uL Normal 3.90-5.20 [facility] Comment on above: Order Comment: Speci men Type: BLOOD SPECIMEN Ordering Facility: [facility] Address: [address] [place] [phone] Performed By: #### 5 7021-8 #### [facility] CLIA [id number] [address] [place] [address]40 WBC (Bld) [#/Vol] 9.97 10*3/uL Normal 3.70-11.00 [facility] Comment on above: Order Comment: Speci men Type: BLOOD SPECIMEN Ordering Facility: [facility] Address: [address] [place] [phone] Performed By: #### 5 7021-8 #### [facility] CLIA [id number] [address] [place] [address] CNOVSPon 02-15-2022 CNOVSP Visit (SP) Office ([place]) -------- UZMA RAMIREZ ([id number]) 1955 F Date Time Provider Department 02/15/22 11:00 AM ERROL CORBIN During your visit today, we recorded the following information about you: Temperature Pulse Respiration Blood pressure 97.4 degrees 66/minute 16/minute 166/85 Weight Height 87.1 kg 1.702 m Errol Corbin MD 02/16/2022 11:02 AM Signed PATIENT NAME: Uzma Ramirez DATE: 02/15/2022 PRIMARY CARE PHYSICIAN: Florinda Flowers [...] one(1) tablet daily. ALLERGIES: Fentanyl, Penicillins, Percocet [Oxycodone-Acetami nophen], Sulfa Dyne, and Terbinafine PAST MEDICAL HISTORY: [...] SKIN: Negative for lesions, rash, and itching. HEMATOLOGY/LYMPHOL OGY: Negative for prolonged bleeding, bruising easily or [...] Normal RADIOLOGY/OTHER STUDIES: 06/28/2021 Bilateral screening mammogram ([facility]) No significant suspicious findings in the right breast or left breast. Routine mammogram in 12 months recommended. 02/28/2021 Bone density DEXA ([facility]) Osteoporosis ASSESSMENT/PLAN: 1. Malignant neoplasm of left breast in female, estrogen receptor positive (HCC) (more content not included)... Normal [facility] Comprehensive metabolic 2000 panelon 02-15-2022 Albumin [Mass/Vol] 4.5 g/dL Normal 3.9-4.9 [facility] Comment on above: Order Comment: Speci men Type: BLOOD SPECIMEN [facility]ing Facility: [facility] Address: [address] [place] [phone] Performed By: #### 2 4323-8 #### [facility] CLIA [id number] [address] [place] [address] ALP [Catalytic activity/Vol] 82 U/L Normal 34-[address] [facility] Comment on above: Order Comment: Speci men Type: BLOOD SPECIMEN Ordering Facility: [facility] Address: [address] [address] Performed By: #### 2 4323-8 #### [facility] CLIA [id number] [address] [place] [address] ALT [Catalytic activity/Vol] 29 U/L Normal 7-[address] [facility] Comment on above: Order Comment: Speci men Type: BLOOD SPECIMEN Ordering Facility: [facility] Address: [address] [place] [address] Performed By: #### 2 4323-8 #### [facility] CLIA [id number] [address] [place] [address] Anion gap [Moles/Vol] 9 mmol/L Normal 9-18 [facility] Comment on above: Order Comment: Speci men Type: BLOOD SPECIMEN Ordering Facility: [facility] Address: [address] [place] [address] Performed By: #### 2 4323-8 #### [facility] CLIA [id number] [address] [place] [address] AST [Catalytic activity/Vol] 28 U/L Normal 13-[address] [facility] Comment on above: Order Comment: Speci men Type: BLOOD SPECIMEN Ordering Facility: [facility] Address: [address] [address] Performed By: #### 2 4323-8 #### [facility] CLIA [id number] [address] [place] [address]657 Bilirubin [Mass/Vol] 1.1 mg/dL Normal 0.2-1.3 [facility] Comment on above: Order Comment: Speci men Type: BLOOD SPECIMEN [facility]ing Facility: [facility] Address: [address] [place] [address] Performed By: #### 2 4323-8 #### [facility] CLIA [id number] [address] [place] [address] Calcium [Mass/Vol] 9.7 mg/dL Normal 8.5-10.2 [facility] Comment on above: Order Comment: Speci men Type: BLOOD SPECIMEN [facility]ing Facility: [facility] Address: [address] [place] [address] Performed By: #### 2 4323-8 #### [facility] CLIA [id number] [address] [place] [address] Chloride [Moles/Vol] 103 mmol/L Normal 97-105 [facility] Comment on above: Order Comment: Speci men Type: BLOOD SPECIMEN [facility]ing Facility: [facility] Address: [address] [place] [address] Performed By: #### 2 4323-8 #### [facility] CLIA [id number] [address] [place] [address]339 CO2 [Moles/Vol] 22 mmol/L Normal 22-[address] [facility] Comment on above: Order Comment: Speci men Type: BLOOD SPECIMEN [facility]ing Facility: [facility] Address: [address] [place] [address] Performed By: #### 2 4323-8 #### [facility] CLIA [id number] [address] [place] [address]671 Creatinine [Mass/Vol] 0.82 mg/dL Normal 0.58-0.96 [facility] Comment on above: Order Comment: Speci men Type: BLOOD SPECIMEN Ordering Facility: [facility] Address: [address] [place], [place] [phone] Performed By: #### 2 4323-8 #### [facility] CLIA [id number] [address] [place] [address]10 ESTIMATED GLOMERULAR FILTRATION RATE 79 mL/min/1.73m??? Normal >=[address] [facility] Comment on above: Order Comment: Luz Marina peters Type: BLOOD SPECIMEN Ordering Facility: [facility] Address: [address] [place] [address] Result Comment: Lillie mated Glomerular Filtration Rate [...] GFR. Performed By: #### 2 4323-8 #### [facility] CLIA [id number] [address] [place] [address] Glucose [Mass/Vol] 128 mg/dL High 74-99 [facility] Comment on above: Order Comment: Luz Marina peters Type: BLOOD SPECIMEN Ordering Facility: [facility] Address: [address] [place], [place] [address] Result Comment: The [place] [employer] (ADA) provides guidance for cutoff [...] Standards of Medical Care in Diabetes 2016, [place] [employer]. Diabetes Care. 2016.39(Suppl 1). Performed By: #### 2 4323-8 #### [facility] CLIA [id number] [address] [place] [address] Potassium [Moles/Vol] 3.9 mmol/L Normal 3.7-5.1 [facility] Comment on above: Order Comment: Luz Marina peters Type: BLOOD SPECIMEN Ordering Facility: [facility] Address: [address] [phone] Performed By: #### 2 4323-8 #### [facility] CLIA [id number] [address] [place] [address] Protein [Mass/Vol] 7.1 g/dL Normal 6.3-8.0 [facility] Comment on above: Order Comment: Speci men Type: BLOOD SPECIMEN Ordering Facility: [facility] Address: [address] [place] [address] Performed By: #### 2 4323-8 #### [facility] CLIA [id number] [address] [place], [place] [address] Sodium [Moles/Vol] 134 mmol/L Low 136-144 [facility] Comment on above: Order Comment: Speci men Type: BLOOD SPECIMEN [facility]ing Facility: [facility] Address: [address] [place] [address] Performed By: #### 2 4323-8 #### [facility] CLIA [id number] [address] [place], [place] [phone] Urea nitrogen [Mass/Vol] 23 mg/dL High 7-[address] [facility] Comment on above: Order Comment: Speci men Type: BLOOD SPECIMEN [facility]ing Facility: [facility] Address: [address] [place] [address] Performed By: #### 2 4323-8 #### [facility] CLIA [id number] [address] [place], [place] [phone] Estela 02-06-2022 JOSE Telephone ([place]A) -------- UZMA RAMIREZ ([id number]) 1955 F Date Time Provider Department 02/06/22 ERROL CORBIN During your visit today, we recorded the following information about you: Corinne Reyes MA 02/06/2022 11:[address]/sign lab orders for 02/15/22. Thanks. 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, Z17.0] Order(s):CBC + DIFF [SQCBCDIF] Order #: [id number] FUTURE COMP METABOLIC PANEL [SQCMP] Order #: [id number] FUTURE Prescriptions as of 02/07/2022 - rosuvastatin [...] Status:Closed by LILIA CASTRO on 02/07/[address] [facility] Q - PROTHROMBIN TIME WITH IN [place] 12-21-2021 INR Coag (PPP) [Relative time] 0.9 {INR} Normal [facility] Att[facility] Comment on above: Order Comment: [facility] performed at: [facility], [facility], [address], [address] [place] [address], [phone], Composing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/Tender: Mariano Paul MD [facility] Date/Time: [facility] Results Received Date/Time: [facility] Reported Date/Time: FASTING: NO Result Comment: Refe rence Range 0.9-1.1 Moderate-intensity Warfarin Therapy 2.0-3.0 Higher-intensity Warfarin Therapy 3.0-4.0 Performed By: #### 7 63X, 26F, %SBNOCULI, 3020X #### [facility] Default [address] [place] [address] PT Coag (PPP) [Time] 9.3 s Normal 9.0-11.5 [facility] Comment on above: Order Comment: [facility] performed at: [employer], [address] [facility], [address] [place] [address], [address] [place] [address], Composing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/Tender: Mariano Paul MD [facility] Date/Time: [facility] Results Received Date/Time: [facility] Reported Date/Time: FASTING: NO Result Comment: For additional information, please refer to http://education.[employer]/faq/LWZ199 (This link is being provided for informational/ educational purposes only.) Performed By: #### 7 63X, 26F, %SBNOCULI, 3020X #### [facility] [address] [place] [address] Q - PTTon 12-21-2021 PARTIAL THROMBOPLASTIN TIME, ACTIVATED 27 sec Normal 23-32 [facility] Attendant Comment on above: Order Comment: [facility] performed at: [employer], [facility], [address] [facility], [address] [place] [address], [address] [place] [address], Composing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/Tender: Mariano Paul MD [facility] Date/Time: [facility] Results Received Date/Time: [facility] Reported Date/Time: FASTING: NO Result Comment: This test has not been validated for monitoring unfractionated heparin therapy. For testing that is validated for this type of therapy, please refer to the Heparin Anti-Xa assay (test code 17782). For additional information, please refer to http://education.[employer]/faq/CJP763 (This link is being provided for informational/educational purposes only.) Performed By: #### 7 63X, 26F, %SBNOCULI, 3020X #### [facility] Default [address] [place] [address] Q - UR CULT REFLEXon 022 REFLEXIVE URINE CULTURE SEE NOTE Normal [facility] Comment on above: Order Comment: [facility] performed at: [employer], [facility], [address] [facility], [address] [place] [address], [address] [place] [address], Composing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/Tender: Mariano Paul MD [facility] Date/Time: [facility] Results Received Date/Time: [facility] Reported Date/Time: FASTING: NO Result Comment: NO C ULTURE INDICATED Performed By: #### 7 63X, 26F, %SBNOCULI, 3020X #### [facility] Default [address] [place] [address] Q - URINALYSIS,COMPLETE,WITH REFLEX TO CULTUREon 12-21-2021 Appearance (U) CLEAR Normal CLEAR [facility] Special[facility] Comment on above: Order Comment: [facility] performed at: [employer], [facility], [address] , [address] [place] [address], [address] [place] [address], Composing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/Tender: Mariano Paul MD [facility] Date/Time: [facility] Results Received Date/Time: [facility] Reported Date/Time: FASTING: NO Performed By: #### 7 63X, 26F, %SBNOCULI, 3020X #### [facility] Default [address] [place] [address] BACTERIA NONE SEEN Normal NONE SEEN [facility] Room Attendant Comment on above: Order Comment: [facility] performed at: [employer], [facility], [address], [address] [place] [address], [address] [place] [address], Composing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/Tender: Mariano Paul MD [facility] Date/Time: [facility] Results Received Date/Time: [facility] Reported Date/Time: FASTING: NO Performed By: #### 7 63X, 26F, %SBNOCULI, 3020X #### [facility] Default [address] [facility] [place] [address] Bilirubin Ql (U) Negative Normal NEGATIVE [facility] Specialist Comment on above: Order Comment: [facility] performed at: [employer], [facility], [address] , [address] [place] [address], [phone], Composing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/Tender: Mariano Paul MD [facility] Date/Time: [facility] Results Received Date/Time: [facility] Reported Date/Time: FASTING: NO Performed By: #### 7 63X, 26F, %SBNOCULI, 3020X #### [facility] Default [address] [place] [address] Color (U) DARK YELLOW Normal YELLOW [facility] Room Attendant Comment on above: Order Comment: [facility] performed at: [employer], [facility], [address] [facility], [address] [place] [address], [address] [place] [address], Composing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/Tender: Mariano Paul MD [facility] Date/Time: [facility] Results Received Date/Time: [facility] Reported Date/Time: FASTING: NO Performed By: #### 7 63X, 26F, %SBNOCULI, 3020X #### [facility] Default [address] [place] [address] Glucose Ql (U) Negative Normal NEGATIVE [facility] Cl[facility] Room Attendant Comment on above: Order Comment: [facility] performed at: [employer], [facility], [address] , [address] [place] [address], [address] [place] [address], Composing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/Tender: Mariano Paul MD [facility] Date/Time: [facility] Results Received Date/Time: [facility] Reported Date/Time: FASTING: NO Performed By: #### 7 63X, 26F, %SBNOCULI, 3020X #### [facility] Default [address] [place] [address] HYALINE CAST NONE SEEN Normal NONE SEEN [facility] Cl[facility] Room Attendant Comment on above: Order Comment: [facility] performed at: [employer], [facility], [address] , [address] [place] [address], [address] [place] [address], Composing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/Tender: Mariano Paul MD [facility] Date/Time: [facility] Results Received Date/Time: [facility] Reported Date/Time: FASTING: NO Performed By: #### 7 63X, 26F, %SBNOCULI, 3020X #### [facility] Default [address] [place] [address] Ketones Ql (U) TRACE Abnormal NEGATIVE [facility] Specialist Comment on above: Order Comment: [facility] performed at: [employer], [facility], [address] , [address] [place] [address], [address] [place] [address], Composing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/Tender: Mariano Paul MD [facility] Date/Time: [facility] Results Received Date/Time: [facility] Reported Date/Time: FASTING: NO Performed By: #### 7 63X, 26F, %SBNOCULI, 3020X #### [facility] Default [address] [place] [address] Leukocyte esterase Test strip Ql (U) Negative Normal NEGATIVE [facility] Specialist Comment on above: Order Comment: [facility] performed at: [employer], [facility], [address] , [address] [place] [address], [address] [place] [address], Composing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/Tender: Mariano Paul MD [facility] Date/Time: [facility] Results Received Date/Time: [facility] Reported Date/Time: FASTING: NO Performed By: #### 7 63X, 26F, %SBNOCULI, 3020X #### [facility] Default [address] [place] [address] Nitrite Ql (U) Negative Normal NEGATIVE [facility] Room Attendant Comment on above: Order Comment: [facility] performed at: [employer], [facility], [address] [place] [address], [address] [place] [address], [address] [place] [address], Composing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/Tender: Mariano Paul MD [facility] Date/Time: [facility] Results Received Date/Time: [facility] Reported Date/Time: FASTING: NO Performed By: #### 7 63X, 26F, %SBNOCULI, 3020X #### [facility] Default [address] [place] [address] OCCULT BLOOD Negative Normal NEGATIVE [facility] Room Attendant Comment on above: Order Comment: [facility] performed at: [employer], [facility], [address] [place] [address], [address] [place] [address], [address] [place] [address], Composing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/Tender: Mariano Paul MD [facility] Date/Time: [facility] Results Received Date/Time: [facility] Reported Date/Time: FASTING: NO Performed By: #### 7 63X, 26F, %SBNOCULI, 3020X #### [facility] Default [address] [place] [address] pH (U) [pH] Normal 5.0-8.0 [facility] Room Attendant Comment on above: Order Comment: [facility] performed at: [facility], [address] [place] [address], [address] [place] [address], [address] [place] [address], Composing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/Tender: Mariano Paul MD [facility] Date/Time: [facility] Results Received Date/Time: [facility] Reported Date/Time: FASTING: NO Performed By: #### 7 63X, 26F, %SBNOCULI, 3020X #### [facility] Default [address] [place] [address] Protein Ql (U) TRACE Abnormal NEGATIVE [facility] Cl[facility] Room Attendant Comment on above: Order Comment: [facility] performed at: [employer], [facility], [address] [facility], [address] [place] [address], [address] [place] [address], Composing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/Tender: Mariano Paul MD [facility] Date/Time: [facility] Results Received Date/Time: [facility] Reported Date/Time: FASTING: NO Performed By: #### 7 63X, 26F, %SBNOCULI, 3020X #### [facility] Default [address] [place] [address] RBC NONE SEEN Normal < OR = 2 [facility] Cl[facility] Room Attendant Comment on above: Order Comment: [facility] performed at: [employer], [facility], [address] [place] [address], [address] [place] [address], [address] [place] [address], Composing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/Tender: Mariano Paul MD [facility] Date/Time: [facility] Results Received Date/Time: [facility] Reported Date/Time: FASTING: NO Performed By: #### 7 63X, 26F, %SBNOCULI, 3020X #### [facility] Default [address] [place] [address] Specific gravity (U) [Rel density] 1.029 Normal 1.001-1.035 [facility] Room Attendant Comment on above: Order Comment: [facility] performed at: [employer], [facility], [address] [place] [address], [address] [place] [address], [address] [place] [address], Composing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/Tender: Mariano Paul MD [facility] Date/Time: [facility] Results Received Date/Time: [facility] Reported Date/Time: FASTING: NO Performed By: #### 7 63X, 26F, %SBNOCULI, 3020X #### [facility] Default [address] [place] [address] SQUAMOUS EPITHELIAL CELLS NONE SEEN Normal < OR = 5 [facility] Cl[facility] Room Attendant Comment on above: Order Comment: [facility] performed at: [employer], [facility], [address] [facility], [address] [place], [address], Composing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/Tender: Mariano Paul MD [facility] Date/Time: [facility] Results Received Date/Time: [facility] Reported Date/Time: FASTING: NO Performed By: #### 7 63X, 26F, %SBNOCULI, 3020X #### [facility] Default [address] [place] [address] WBC NONE SEEN Normal < OR = 5 [facility] Cl[facility] Room Attendant Comment on above: Order Comment: [facility] performed at: Q, [facility], [address] [facility], [address] [place], [address], Composing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/Tender: Mariano Paul MD [facility] Date/Time: [facility] Results Received Date/Time: [facility] Reported Date/Time: FASTING: NO Performed By: #### 7 63X, 26F, %SBNOCULI, 3020X #### [facility] Default [address] [place] [address] Complete Blood Count with Au to Diffon 12-20-2021 Basophils (Bld) [#/Vol] 0.03 10*3/uL Normal 0.00-0.20 [facility] Cloak Room Attendant Comment on above: Performed By: #### C BCAD, CMP #### [facility] [address], [place] [id number] Basophils/100 WBC (Bld) 0.3 % Normal N [facility] Specialist Comment on above: Performed By: #### C BCAD, CMP #### [facility] [address], [place] [id number] Eosinophils (Bld) [#/Vol] 0.02 10*3/uL Normal 0.02-0.50 [facility] Cloak Room Attendant Comment on above: Performed By: #### C BCAD, CMP #### [facility] [address], [place] [id number] Eosinophils/100 WBC (Bld) 0.2 % Normal [facility] Cloak Room Attendant Comment on above: Performed By: #### C BCAD, CMP #### [facility] [address], [place] [id number] Erythrocyte distribution width (RBC) [Ratio] 14.3 % Normal 11.0-15.0 [facility] Comment on above: Performed By: #### C ERIC, CMP #### [facility] [address], [place] [id number] Hematocrit (Bld) [Volume fraction] 46.9 % Normal 35.0-47.0 [facility] Comment on above: Performed By: #### C ERIC, CMP #### [facility] [address], [place] [id number] Hemoglobin (Bld) [Mass/Vol] 14.3 g/dL Normal 11.6-15.5 [facility] Specialist Comment on above: Performed By: #### C ERIC, CMP #### [facility] [address], [place] [id number] Lymphocytes (Bld) [#/Vol] 2.2 10*3/uL Normal 0.9-3.9 [facility] Comment on above: Performed By: #### C ERIC, CMP #### [facility] [address], [place] [id number] Lymphocytes/100 WBC (Bld) 19.7 % Normal [facility] Comment on above: Performed By: #### C ERIC, CMP #### [facility] [address], [place] [id number] MCH (RBC) [Entitic mass] 30.0 pg Normal 27.0-33.0 [facility] Comment on above: Performed By: #### C BCAMoody, CMP #### [facility] [address], [place] [id number] MCHC (RBC) [Mass/Vol] 30.5 g/dL Low 32.0-36.0 [facility] Comment on above: Performed By: #### C BCAMoody, CMP #### [facility] [address], [place] [id number] MCV (RBC) [Entitic vol] 98 fL Normal 80-100 N [facility] Comment on above: Performed By: #### C ERIC, CMP #### [facility] [address], [place] [id number] Monocytes (Bld) [#/Vol] 0.5 10*3/uL Normal 0.2-0.9 [facility] Comment on above: Performed By: #### C ERIC, CMP #### [facility] [address], [place] [id number] Monocytes/100 WBC (Bld) 4.3 % Normal [facility] Comment on above: Performed By: #### C ERIC, CMP #### [facility] [address], [place] [id number] Neutrophils (Bld) [#/Vol] 8.3 10*3/uL High 1.5-7.8 [facility] Comment on above: Performed By: #### C ERIC, CMP #### [facility] [address], [place] [id number] Neutrophils/100 WBC (Bld) 75.2 % Normal [facility] Comment on above: Performed By: #### C ERIC, CMP #### [facility] [address], [place] [id number] Platelet mean volume (Bld) [Entitic vol] 10.80 fL Normal 7.50-12.50 [facility] Comment on above: Performed By: #### C ERIC, CMP #### [facility] [address], [place] [id number] Platelets (Bld) [#/Vol] 303 10*3/uL Normal 140-400 [facility] Specialist Comment on above: Performed By: #### C ERIC, CMP #### [facility] [address], [place] [id number] RBC (Bld) [#/Vol] 4.77 10*6/uL Normal 3.90-5.20 [facility] Comment on above: Performed By: #### C ERIC, CMP #### [facility] [address], [place] [id number] RDW-SD 52.3 fL High 37.0-50.0 [facility] Specialist Comment on above: Performed By: #### C ERIC, CMP #### [facility] [address], [place] [id number] WBC (Bld) [#/Vol] 11.1 10*3/uL High 3.8-11.0 [facility] Comment on above: Performed By: #### C BCAD, CMP #### [facility] [address], [place] [id number] Comprehensive Metabolic Pane raffaele 12-20-2021 Albumin [Mass/Vol] 5.0 g/dL Normal 3.6-5.1 [facility] Comment on above: Performed By: #### C BCAD, CMP #### [facility] [address], [place] [id number] Albumin/Globulin [Mass ratio] 1.9 {ratio} Normal 1.0-2.5 [facility] Comment on above: Performed By: #### C BCAD, CMP #### [facility] [address], [place] [id number] ALP [Catalytic activity/Vol] 68 U/L Normal 35-119 [facility] Comment on above: Performed By: #### C BCAD, CMP #### [facility] [address], [place] [id number] ALT [Catalytic activity/Vol] 112 U/L High 6-33 [facility] Comment on above: Result Comment: 10/04 Female reference range changed. Performed By: #### C BCAD, CMP #### [facility] [address], [place] [id number] Anion gap [Moles/Vol] 21 mmol/L High 12-20 [facility] Comment on above: Result Comment: Effe ctive 11/09/2019 reference range changed. Performed By: #### C BCAD, CMP #### [facility] [address], [place] [id number] AST [Catalytic activity/Vol] 84 U/L High 9-34 [facility] Comment on above: Performed By: #### C BCAD, CMP #### [facility] [address], [place] [id number] Bilirubin [Mass/Vol] 1.12 mg/dL Normal 0.30-1.20 [facility] Comment on above: Performed By: #### C BCAD, CMP #### [facility] [address], [place] [id number] BUN/CREA 30 Ratio High 6-22 [facility] Comment on above: Performed By: #### C BCAD, CMP #### [facility] [address], [place] [id number] Calcium [Mass/Vol] 10.0 mg/dL Normal 8.6-10.2 [facility] Comment on above: Performed By: #### C BCAD, CMP #### [facility] [address], [place] [id number] Chloride [Moles/Vol] 101 mmol/L Normal 98-107 [facility] Comment on above: Performed By: #### C BCAD, CMP #### [facility] [address], [place] [id number] CO2 [Moles/Vol] 19 mmol/L Low 20-31 [facility] Comment on above: Performed By: #### C BCAD, CMP #### [facility] [address], [place] [id number] Creatinine [Mass/Vol] 0.8 mg/dL Normal 0.6-1.4 [facility] Comment on above: Performed By: #### C BCAD, CMP #### [facility] [address], [place] [id number] eGFRAA 86 mL/min/1.73m2 Normal >60 [facility] Comment on above: Performed By: #### C BCAD, CMP #### [facility] [address], [place] [id number] eGFRNAA 71 mL/min/1.73m2 Normal >60 [facility] Specialist Comment on above: Performed By: #### C BCAD, CMP #### [facility] [address], [place] [id number] Globulin (S) [Mass/Vol] 2.6 g/dL Normal 1.9-3.7 Johann [facility] Specialist Comment on above: Performed By: #### C BCAD, CMP #### [facility] [address], [place] [id number] Glucose [Mass/Vol] 154 mg/dL High 65-99 Sara molina [place] Cloak Room Attendant Comment on above: Result Comment: For FASTING Glucose --- ADA reference ranges: Normal 65-99 mg/dl Prediabetes 100-125 Diabetes >/= 126 Performed By: #### C BCAD, CMP #### [facility] [address], [place] [id number] Potassium [Moles/Vol] 4.5 mmol/L Normal 3.5-5.5 [facility] Specialist Comment on above: Performed By: #### C BCAD, CMP #### [facility] [address], [place] [id number] Protein [Mass/Vol] 7.6 g/dL Normal 6.1-8.1 Sara molina [place] Cloak Room Attendant Comment on above: Performed By: #### C BCAD, CMP #### [facility] [address], [place] [id number] Sodium [Moles/Vol] 137 mmol/L Normal 135-146 Sara molina [place] Cloak Room Attendant Comment on above: Performed By: #### C BCAD, CMP #### [facility] [address], [place] [id number] Urea nitrogen [Mass/Vol] 24 mg/dL Normal 7-25 [facility] Specialist Comment on above: Performed By: #### C BCAD, CMP #### [facility] [address], [place] [id number] Estela 03-02-2021 SORENN Telephone (HEMASA) -------- UZMA RAMIREZ ([id number]) 1955 F Date Time Provider Department 03/02/21 [...] Unknown PENICILLINS 02/16/2021 2 - Rash PERCOCET (OXYCODONE-ACETAMI NOPHEN)10/09/2005 8 - GI Upset SULFA DYNE 09/17/2012 [...] Status:Closed by ARJUN HART on 03/02/[address] [facility] Estela 02-21-2021 CNPN Telephone (NCCAP) -------- UZMA RAMIREZ ([id number]) 1955 F Date Time Provider Department 02/21/21 ERROL CORBIN During your visit today, we recorded the following information about you: Caterina Weston Pss 02/21/2021 9:58 AM Signed Pt is scheduled at [facility] for bone density and yayo screen mammogram. Dr Corbin, can you please review and place orders in [facility] to be faxed? Thanks! Katia Rojas RN 02/21/2021 11:17 AM Signed Orders pended. Please review and approve. Thanks, ADELSO Moore 02/21/2021 12:33 PM Signed Signed. 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, Z17.0] Other Visit Diagnosis:Age-rela ludin osteoporosis without current pathological fracture [M81.0] Order(s):DXA-AXIAL SKELETON [[id number]] Order #: [id number] FUTURE JOHANN SCREENING [[id number]] Order #: [id number] FUTURE Prescriptions as of 02/21/2021 Sig: ROSUVASTATIN [...] Status:Closed by CATERINA MADERA on 04/14/[address] [facility] Vital Signs Date Time Vital Sign Value Performing Clinician Facility 05-05-2025 10:46-0400 Body height 167.64 cm Florinda Flowers MD Work Phone: [facility] 05-05-2025 10:46-0400 Body mass index (BMI) [Ratio] 30.4 kg/m2 Florinda Flowers MD Work Phone: [facility] 05-05-2025 10:46-0400 Body weight 85.72 kg Florinda Flowers MD Work Phone: [facility] 05-05-2025 10:46-0400 Diastolic blood pressure 85 mm[Hg] Florinda Flowers MD Work Phone: [facility] 05-05-2025 10:46-0400 Heart rate 69 /min Florinda Flowers MD Work Phone: [facility] 05-05-2025 10:46-0400 Systolic blood pressure 159 mm[Hg] Florinda Flowers MD Work Phone: [facility] 02-16-2025 11:14-0400 Body height 167.6 cm Uzma Joel TECHNICAL STAFF ASSISTANT Work Phone: [facility] 02-16-2025 11:14-0400 Body mass index (BMI) [Ratio] 30.51 kg/m2 Uzma Joel TECHNICAL STAFF ASSISTANT Work Phone: [facility] 02-16-2025 11:14-0400 Body weight 85.73 kg Uzma Joel NP Work Phone: [facility] 02-16-2025 11:14-0400 Diastolic blood pressure 93 mm[Hg] Uzma Joel TECHNICAL STAFF ASSISTANT Work Phone: [facility] 02-16-2025 11:14-0400 Heart rate 58 /min Uzma Bustosr TECHNICAL STAFF ASSISTANT Work Phone: [facility] 02-16-2025 11:14-0400 Systolic blood pressure 169 mm[Hg] Uzma Bustosr TECHNICAL STAFF ASSISTANT Work Phone: [facility] 01-14-2025 11:17-0400 Body height 167.6 cm Mc Brinda DO Work Phone: [facility] 01-14-2025 11:17-0400 Body mass index (BMI) [Ratio] 30.51 kg/m2 Mc Brinda DO Work Phone: [facility] 01-14-2025 11:17-0400 Body weight 85.73 kg Mc Brinda DO Work Phone: [facility] 01-14-2025 11:17-0400 Diastolic blood pressure 88 mm[Hg] Mc Brinda DO Work Phone: [facility] 01-14-2025 11:17-0400 Heart rate 53 /min Mc Brinda DO Work Phone: [facility] 01-14-2025 11:17-0400 SaO2% (BldA) [Mass fraction] 95 % Mc Brinda DO Work Phone: [facility] 01-14-2025 11:17-0400 Systolic blood pressure 146 mm[Hg] Mc Brinda DO Work Phone: [facility] 09-16-2024 10:42-0500 Body mass index (BMI) [Ratio] 29.24 kg/m2 Maria L Bean CLIN TECH-GREENHOUSE STAFF Work Phone: [facility] 09-16-2024 10:42-0500 Body weight 84.69 kg Maria L Bean CLIN TECH-GREENHOUSE STAFF Work Phone: [facility] 09-02-2024 09:22-0400 Body height 170.2 cm Rehana Reinoso DO Work Phone: [facility] [employer] 09-02-2024 09:22-0400 Body mass index (BMI) [Ratio] 29.13 kg/m2 Rehana Reinoso DO Work Phone: [facility] [employer] 09-02-2024 09:22-0400 Body weight 84.37 kg Rehana Reinoso DO Work Phone: [facility] 09-02-2024 09:22-0400 Diastolic blood pressure 75 mm[Hg] Rehana Reinoso DO Work Phone: [facility] 09-02-2024 09:22-0400 Heart rate 60 /min Rehana Reinoso DO Work Phone: [facility] 09-02-2024 09:22-0400 Systolic blood pressure 181 mm[Hg] Rehana Reinoso DO Work Phone: [facility] 08-21-2024 10:58-0400 Body height 165.1 cm MD Florinda Flowers Work Phone: [facility] 08-21-2024 10:58-0400 Body mass index (BMI) [Ratio] 30.9 kg/m2 MD Florinda Flowers Work Phone: [facility] 08-21-2024 10:58-0400 Body weight 84.36 kg MD Florinda Flowers Work Phone: [facility] 08-21-2024 10:58-0400 Diastolic blood pressure 108 mm[Hg] MD Florinda Flowers Work Phone: [facility] 08-21-2024 10:58-0400 Heart rate 80 /min MD Florinda Flowers Work Phone: [facility] 08-21-2024 10:58-0400 Systolic blood pressure 178 mm[Hg] MD Florinda Flowers Work Phone: [facility] 01-03-2024 11:09-0500 Body height 167.6 cm Maria L Bean CLIN TECH-GREENHOUSE STAFF Work Phone: [employer] 01-03-2024 11:09-0500 Body mass index (BMI) [Ratio] 28.57 kg/m2 Maria L Bean CLIN TECH-GREENHOUSE STAFF Work Phone: [employer] 01-03-2024 11:09-0500 Body weight 80.29 kg Maria L Bean CLIN TECH-GREENHOUSE STAFF [facility] 01-03-2024 11:09-0500 Diastolic blood pressure 96 mm[Hg] Maria L Bean CLIN TECH-GREENHOUSE STAFF Work Phone: [employer] 01-03-2024 11:09-0500 Systolic blood pressure 174 mm[Hg] Maira L Bean CLIN TECH-GREENHOUSE STAFF [facility] 06-18-2023 10:30-0400 Body height 167.64 cm Florinda Flowers Other [employer] Other 06-18-2023 10:30-0400 Body mass index (BMI) [Ratio] 28.73 kg/m2 Florinda Flowers Other [employer] Other 06-18-2023 10:30-0400 Body weight 80.74 kg Florinda Flowers Other [employer] Other 06-18-2023 10:30-0400 Diastolic blood pressure 75 mm[Hg] Florinda Flowers Other [employer] Other 06-18-2023 10:30-0400 Systolic blood pressure 131 mm[Hg] Florinda Flowers Other [employer] Other 12-24-2022 10:00-0500 Body height 167.64 cm Florinda Flowers Other [employer] Other 02-20-2023 10:00-0500 Body mass index (BMI) [Ratio] 30.02 kg/m2 Florinda Flowers Other [employer] Other 12-24-2022 10:00-0500 Body weight 84.37 kg Florinda Flowers Other [employer] Other 12-24-2022 10:00-0500 Diastolic blood pressure 84 mm[Hg] Florinda Flowers Other [employer] Other 12-24-2022 10:00-0500 Systolic blood pressure 130 mm[Hg] Florinda Flowers Other [employer] Other 09-30-2022 12:00-0500 Body height 167.64 cm Elizabeth Wyatt Other [employer] Other 09-30-2022 12:00-0500 Body mass index (BMI) [Ratio] 29.53 kg/m2 Elizabeth Wyatt Other [employer] Other 09-30-2022 12:00-0500 Body temperature 98.3 [degF] Elizabeth Wyatt Other [employer] Other 09-30-2022 12:00-0500 Body weight 83.01 kg Elizabeth Francomond Other [employer] Other 09-30-2022 12:00-0500 Respiratory rate 18 /min Elizabeth Francomond Other [employer] Other 09-30-2022 12:00-0500 SaO2% (BldA) [Mass fraction] 99 % Elizabeth Francomond Other [employer] Other 08-14-2022 15:20-0400 Body height 167.64 cm Teetee Palominos Other [employer] Other 08-14-2022 15:20-0400 Body mass index (BMI) [Ratio] 30.5 kg/m2 Teetee Palominos Other [employer] Other 08-14-2022 15:20-0400 Body temperature 96.2 [degF] Teetee Palominos Other [employer] Other 08-14-2022 15:20-0400 Body weight 85.73 kg Teetee Palominos Other [employer] Other 08-14-2022 15:20-0400 Diastolic blood pressure 85 mm[Hg] Teetee Palominos Other [employer] Other 08-14-2022 15:20-0400 Respiratory rate 18 /min Teetee Palominos Other [employer] Other 08-14-2022 15:20-0400 SaO2% (BldA) [Mass fraction] 96 % Teetee Palominos Other [employer] Other 08-14-2022 15:20-0400 Systolic blood pressure 147 mm[Hg] Teetee Palominos Other [employer] Other 07-20-2022 13:49-0400 Body height 167.64 cm Florinda Flowers Work Phone: [employer] Work Phone: 07-20-2022 13:49-0400 Diastolic blood pressure 78 mm[Hg] Florinda Flowers [facility] Work Phone: 07-20-2022 13:49-0400 Heart rate 66 /min Florinda Flowers Work Phone: [facility] 600 DO Work Phone: 07-20-2022 13:49-0400 Systolic blood pressure 120 mm[Hg] Florinda Flowers Work Phone: [facility] 600 DO Work Phone: 07-04-2022 12:06-0400 Diastolic blood pressure 85 mm[Hg] MD Florinda Flowers Work Phone: [facility] 07-04-2022 12:06-0400 Heart rate 62 /min MD Florinda Flowers Work Phone: [facility] 07-04-2022 12:06-0400 Respiratory rate 16 /min MD Florinda Flowers Work Phone: [facility] 07-04-2022 12:06-0400 SaO2% (BldA) [Mass fraction] 95 % MD Florinda Flowers Work Phone: [facility] 07-04-2022 12:06-0400 Systolic blood pressure 146 mm[Hg] MD Florinda Flowers Work Phone: [facility] 07-04-2022 09:23-0400 Body height 167.64 cm MD Florinda Flowers Work Phone: [facility] 07-04-2022 09:23-0400 Body weight 85.72 kg MD Florinda Flowers Work Phone: [facility] 06-12-2022 17:20-0400 Body height 167.64 cm Teetee Rizvi Other [facility] [employer] Other 06-12-2022 17:20-0400 Body mass index (BMI) [Ratio] 30.5 kg/m2 Teetee Rizvi Other [facility] [employer] Other 06-12-2022 17:20-0400 Body temperature 97 [degF] Teetee Rizvi Other [employer] Other 06-12-2022 17:20-0400 Body weight 85.73 kg Teetee Rizvi Other [employer] Other 06-12-2022 17:20-0400 Diastolic blood pressure 88 mm[Hg] Teetee Palominos Other [employer] Other 06-12-2022 17:20-0400 Respiratory rate 18 /min Teetee Rizvi Other [employer] Other 06-12-2022 17:20-0400 SaO2% (BldA) [Mass fraction] 97 % Teetee Rizvi Other [employer] Other 06-12-2022 17:20-0400 Systolic blood pressure 155 mm[Hg] Teetee Rizvi Other [employer] Other Encounters Encounter Date Encounter Type Care Provider Facility Start: 08-20-2025 End: 08-20-2025 Bamboo flowsheet Ryan SMITH Work Phone: [facility] Start: 08-20-2025 End: 08-20-2025 Bamboo flowsheet Ryan SMITH Work Phone: [facility] Start: 05-05-2025 End: 05-05-2025 ambulatory Florinda Flowers MD Work Phone: [facility] Work Phone: Start: 05-05-2025 End: 05-05-2025 Patient encounter procedure Uzma Nicole CLIN TECH -[facility] [place] Work Phone: Start: 02-16-2025 End: 02-16-2025 ambulatory UZMA JOEL Not Available Start: 02-16-2025 End: 02-16-2025 Office outpatient visit 25 minutes Uzma Joel TECHNICAL STAFF ASSISTANT Work Phone: [facility] Comment on above: Other insomnia (Prim gus Dx); Other chronic pain; Primary progressive aphasia (CMS/HCC); Bereavement; Memory loss Start: 02-15-2025 End: 02-15-2025 Patient encounter procedure Migel Dunlap PhD Work Phone: [facility] Comment on above: Primary progressive aphasia (CMS/HCC) (Primary Dx); Memory loss; Other insomnia; Bereavement; 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); Word finding difficulty; Primary insomnia; Depression, unspecified depression type (CMS/HCC) Start: 02-15-2025 End: 02-15-2025 ambulatory MIGEL DUNLAP Not Available Start: 02-15-2025 End: 02-15-2025 Bamboo flowsheet Migel Dunlap PhD Work Phone: [facility] Start: 02-15-2025 End: 02-15-2025 [facility] Migel Dunlap PhD Work Phone: [facility] Start: 02-02-2025 End: 02-02-2025 ambulatory JR., STEPANIC Not Available Start: 02-02-2025 End: 02-02-2025 Patient encounter procedure Migel Dunlap PhD Work Phone: [facility] Comment on above: Primary progressive aphasia (CMS/HCC) (Primary Dx); Memory loss; Other insomnia; Bereavement; 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) Start: 01-20-2025 End: 01-20-2025 ambulatory MC PARRY Not Available Start: 01-18-2025 End: 01-18-2025 ambulatory MIGEL DUNLAP Not Available Start: 01-14-2025 End: 01-14-2025 Bamboo flowsheet Mc Parry DO Work Phone: [facility] Start: 01-14-2025 End: 01-14-2025 Bamboo flowsheet Mc Parry DO Work Phone: [facility] Start: 01-14-2025 End: 01-14-2025 Office outpatient new 45 minutes Mc Parry DO Work Phone: [facility] Comment on above: Memory loss (Primary Dx); Primary insomnia; Pseudodementia; Depression, unspecified depression type (CMS/HCC) Start: 01-14-2025 End: 01-14-2025 ambulatory MC PARRY Not Available Start: 12-15-2024 Patient encounter procedure Florinda Flowers MD Work Phone: [facility] Start: 12-02-2024 End: 12-02-2024 Bamboo flowsalejandro Adrian DO Work Phone: [facility] Start: 12-02-2024 End: 12-02-2024 Bamboo flowsheet Jr. Dell Adrian DO Work Phone: [facility] Start: 12-02-2024 End: 12-02-2024 ambulatory DELL CORTEZ Not Available Start: 12-02-2024 End: 12-02-2024 Office outpatient visit 15 minutes Jr. Dell Adrian DO Work Phone: [facility] Comment on above: S/P TKR (total knee replacement), right (Primary Dx); Acute pain of left knee; History of left knee replacement Start: 09-16-2024 End: 09-16-2024 Postop follow up visit related to original px Maria L Bean CLIN TECH-GREENHOUSE STAFF Work Phone: [facility] Comment on above: Inclusion cyst (Prim gus Dx) Start: 09-16-2024 End: 09-16-2024 ambulatory MARIA L Tianna BEAN [facility] Start: 09-14-2024 End: 09-14-2024 Orders Only Not In System Ref Prov [facility] Start: 09-08-2024 End: 09-08-2024 ambulatory MD Florinda Flowers Work Phone: [facility] Comment on above: Inclusion cyst Start: 09-08-2024 End: 09-08-2024 Departed Referred MD Florinda Flowers Work Phone: [facility] Start: 09-02-2024 End: 09-02-2024 Office outpatient new 20 minutes Rehana Reinoso DO Work Phone: [facility] Comment on above: Inclusion cyst (Prim gus Dx) Start: 09-02-2024 End: 09-02-2024 ambulatory REHANA REINOSO [facility] Start: 08-21-2024 End: 08-21-2024 Patient encounter procedure MD Florinda Folwers Work Phone: [facility] Work Phone: Start: 02-14-2024 End: 02-14-2024 Telephone encounter Rita Baker [facility] Start: 02-11-2024 End: 02-11-2024 Orders Only Not In System Ref Prov [facility] Start: 02-05-2024 End: 02-05-2024 ambulatory MD Florinda Flowers Work Phone: [facility] Comment on above: History of colon jody yps Start: 02-05-2024 End: 02-05-2024 Departed Referred MD Florinda Flowers Work Phone: [facility] Start: 01-29-2024 Orders Only Maria L A Ly oll CLIN TECH-GREENHOUSE STAFF Work Phone: [facility] Comment on above: History of colon jody yps (Primary Dx) Start: 01-03-2024 End: 01-03-2024 ambulatory [facility] Tianna BEAN [facility] Start: 01-03-2024 End: 01-03-2024 Office outpatient visit 15 minutes Maria L Bean CLIN TECH-GREENHOUSE STAFF Work Phone: [facility] Comment on above: History of colon jody yps (Primary Dx) Start: 10-29-2023 End: 10-29-2023 ambulatory Florinda Flowers Other [facility] Other Start: 10-29-2023 Telephone encounter Florinda Flowers [facility] Start: 08-19-2023 End: 08-19-2023 ambulatory Florinda Flowers Other [facility] Other Start: 08-19-2023 Telephone encounter Florinda Flowers [facility] Start: 08-05-2023 End: 08-05-2023 ambulatory Florinda Flowers Other [facility] Other Start: 08-05-2023 Telephone encounter Florinda Flowers [facility] Start: 06-18-2023 End: 06-18-2023 ambulatory Florinda Flowers Other [facility] Other Start: 06-18-2023 Encounter for other preprocedural examination Florinda Flowers [facility] Start: 06-18-2023 Office outpatient vi sit 25 minutes Florinda Flowers [facility] Start: 03-12-2023 End: 03-12-2023 ambulatory Florinda Flowers Other [facility] Other Start: 03-12-2023 Telephone encounter Florinda Flowers [facility] Start: 02-20-2023 End: 02-21-[address] DOCTOR LIVINGSTON Facility: Start: 12-24-2022 Patient encounter procedure Florinda Flowers [facility] Start: 12-24-2022 End: 12-25-[address] FLORINDA FLOWERS [facility] Other Start: 12-06-2022 End: 12-06-2022 ambulatory Florinda Flowers Other [facility] Other Start: 12-06-2022 Telephone encounter Florinda Flowers [facility] Start: 11-26-2022 Encounter for preprocedural laboratory examination DR REHANA REINOSO . [facility] Start: 2022 End: [address] REHANA REINOSO . Facility:[facility]1 Start: 11-19-2022 End: 11-20-[address] REHANA REINOSO . Facility:[facility] Start: 11-19-2022 End: 11-20-2022 Encounter for preprocedural laboratory examination DR REHANA REINOSO . Facility:[facility] Start: 10-31-2022 End: 11-01-[address] DOCTOR RODGERS Facility:[facility] Start: 10-05-2022 Adult health examination Delaney tianna Lionel Other [facility] Other Start: 10-05-2022 Gynecological examin ation normal Florinda Lionel Other [facility] Other Start: 10-05-2022 Pre-procedure evalua tion check Florinda Lionel Other [facility] Other Start: 10-05-2022 Preoperative cardiovascular examination Floirnda Lionel Other [facility] Other Start: 10-05-2022 Problem, abnormal examination Florinda Lionel Other [facility] Other Start: 09-30-2022 End: 09-30-2022 ambulatory Elizabeth Wyatt Other [facility] Other Start: 09-30-2022 Office outpatient vi sit 15 minutes Elizabethsowmya Wyatt [facility] Start: 08-14-2022 End: 08-14-2022 ambulatory Aziz Bakhous Other [facility] Other Start: 08-14-2022 Office outpatient vi sit 25 minutes Aziz Bakhous [facility] Start: 08-01-2022 End: 08-01-2022 ambulatory Aziz Bakhous Other [facility] Other Start: 08-01-2022 Telephone encounter Teetee Rizvi [facility] Start: 07-30-2022 End: 07-31-[address] LEI PEREZ Facility:[facility]1 Start: 07-20-2022 Office outpatient vi sit 25 minutes Florinda Flowers Work Phone: [facility] 250 DO Work Phone: Start: 07-20-2022 Patient encounter procedure Florinda Flowers Work Phone: [facility] 600 DO Work Phone: Start: 07-20-[address] Florinda Flowers Facility: Start: 07-04-2022 End: 07-04-2022 Admission to same day surgery center MD Florinda Flowers Work Phone: [facility]-CT Scan [place] Start: 07-02-2022 End: 07-03-[address] RYAN ORTIZ Facility:[facility]1 Start: 07-02-2022 End: 07-03-[address] ERROL CORBIN Facility:[facility] Start: 06-12-2022 End: 06-12-2022 ambulatory Teetee Rizvi Other [facility] Other Start: 06-12-2022 Office outpatient ne w 45 minutes Teetee Rizvi [facility] Start: 03-19-2022 End: 03-19-2022 Patient encounter procedure MD Florinda Flowers Work Phone: [facility]-Lab [address] Start: 02-06-2022 Telephone encounter Errol womack MD Work Phone: Hematology/Oncology Comment on above: Lab Orders Start: 12-20-2021 End: 12-20-2021 Patient encounter procedure MD Florinda Flowers Work Phone: [facility]-XRay [address] Start: 02-15-2021 End: 02-15-2021 Chart abstracting Errol Corbin Work Phone: Hematology/Oncology Start: 02-02-2021 End: 02-02-2021 Patient encounter procedure External Provider [facility] Start: 02-02-2021 Results Only External Provider Exter nal-NonCCF Procedures Date Procedure Procedure Detail Performing Clinician Start: 09-10-2024 Level i surg patholo gy gross examination only Not In System Ref Prov Start: 09-08-2024 UNLISTED NON-PROMEDI CA PROCEDURE Rehana Arriola Michel DO Work Phone: Start: 02-05-2024 Level i surg patholo gy gross examination only Not In System Ref Prov Start: 02-05-2024 End: 02-05-2024 Colonoscopy Maria L A Bean CLIN TECH-[employer] Work Phone: Start: 2022 Colonoscopy Maria L Luna carloz [employer]IN TE[employer]AFF Work Phone: Start: 12-20-2021 Plain X-ray of bilat eral femurs MD Florinda Flowers Work Phone: Start: 12-20-2021 Plain X-ray of bilat eral tibia and bilateral fibula MD Florinda Flowers Work Phone: Start: 02-02-2021 EXTERNAL IMAGING [employer] Member al Provider Start: 02-02-2021 EXTERNAL LAB External P rovider Start: 08-05-2015 Screening for malign ant neoplasm of breast Florinda Flowers Other Arthroplasty of knee Florinda Flowers Work Phone: Colonoscopy Florinda Flowers Work Phone: Excision of breast tissue Florinda Flowers Work Phone: Comment on above: Breast surgery; History of operative procedure on knee History of left knee replacement Jr. Dell Adrian DO Work Phone: Hysterectomy Florinda Flowers Work Phone: Operation on breast Florinda E Lionel Work Phone: Operative procedure on knee Florinda Flowers Work Phone: Procedure on back Florinda mendez Work Phone: Screening for malign ant neoplasm of breast Florinda Flowers Other Total replacement of hip Tamar Flowers Work Phone: Plan of Treatment Date Care Activity Detail Author Start: 09-16-2025 Adult BMI Screening Adult BMI Screen ing [facility] Start: 09-16-2025 Tobacco Screening Tobacco Screening [facility] Start: 09-02-2025 Adult BMI Screening Adult BMI Screen ing [facility] Start: 09-02-2025 Tobacco Screening Tobacco Screening [facility] Start: 08-20-2025 End: 08-20-2025 Patient encounter procedure 08/20/2025 9:15 AM EDT Office Visit [facility] [address] [facility] [place] [place] [address] Ryan Milton PA [address] [facility] [place] [address] Acute right hip pain (Primary Dx); History of total right hip replacement [facility] Comment on above: Acute right hip pain (Primary Dx); History of total right hip replacement Start: 07-05-2025 Influenza vaccination Influenz a Vaccine (Season Ended) [facility] Start: 05-05-2025 End: 05-05-2025 Patient encounter procedure 05/05/2025 10:40 AM EDT Office Visit [facility] [address] [address] Uzma Joel NP [address] [place] [address] [facility] Start: 02-16-2025 End: 02-16-2025 Patient encounter procedure 02/16/2025 10:40 AM EDT Office Visit [facility] [address] [address] Uzma Joel NP [address] [place] [address] [facility] Start: 02-15-2025 End: 02-15-2025 Patient encounter procedure [facility] Comment on above: Arrived Start: 02-04-2025 Screening for malign ant neoplasm of colon Colonoscopy [facility] Start: 01-20-2025 End: 01-20-2025 Clinical Support 01/20/2025 2:00 PM EDT Clinical Support WADE CASTELANEVUE [address] [place] [address] [facility] Start: 01-18-2025 End: 01-18-2025 Patient encounter procedure 01/18/2025 2:30 PM EDT Office Visit [facility] [address] [address] [place] [phone] Migel Dunlap, PhD [address] [place] [address] [facility] Start: 01-14-2025 End: 01-14-2026 Cobalamin (Vitamin B12) [Mass/volume] in Serum or Plasma Vitamin B12 Lab Routine Memory loss Expected: 01/14/2025 (Approximate), Expires: 01/14/2026 [facility] Comment on above: Expected: 01/14/2025 (Approximate), Expires: 01/14/2026 Start: 01-14-2025 End: 01-14-2026 EEG awake or drowsy EEG awake or drowsy Neurology Routine Memory loss Expected: 01/14/2025 (Approximate), Expires: 01/14/2026 [facility] Comment on above: Expected: 01/14/2025 (Approximate), Expires: 01/14/2026 Start: 01-14-2025 End: 01-14-2026 Folate [Mass/volume] in Serum or Plasma Folate Lab Routine Memory loss Expected: 01/14/2025 (Approximate), Expires: 01/14/2026 [facility] Comment on above: Expected: 01/14/2025 (Approximate), Expires: 01/14/2026 Start: 01-14-2025 End: 01-14-2026 MR Brain WO contrast MR brain wo contrast Imaging Routine Memory loss Expected: 01/14/2025, Expires: 01/14/2026 [facility] Work Phone: Comment on above: Expected: 01/14/2025 , Expires: 01/14/2026 Start: 01-14-2025 End: 01-14-2026 Thyrotropin [Units/volume] in Serum or Plasma TSH Lab Routine Memory loss Expected: 01/14/2025 (Approximate), Expires: 01/14/2026 [facility] Comment on above: Expected: 01/14/2025 (Approximate), Expires: 01/14/2026 Start: 01-14-2025 End: 01-14-2025 Patient encounter procedure 01/14/2025 11:15 AM EDT Office Visit [facility] [address] [place] [address] Mc Parry DO [address] [place] [address] Arrived [facility] Comment on above: Arrived Start: 01-02-2025 Adult BMI Screening Adult BMI Screen ing [facility] Start: 01-02-2025 Tobacco Screening Tobacco Screening [facility] Start: 09-16-2024 End: 09-16-2024 Patient encounter procedure 09/16/2024 10:30 AM EST Office Visit [facility] [address] [place] [address] Maria L Bean, CLIN TECH-[facility] [address] [place] [address] [facility] Start: 09-08-2024 End: 09-02-2025 Unlisted [facility] Procedure Unlisted [facility] Procedure Procedures Routine Inclusion cyst Expected: 09/08/2024, Expires: 09/02/2025 [facility] Work Phone: Comment on above: Expected: 09/08/2024 , Expires: 09/02/2025 Start: 07-05-2024 COVID-19 Vaccine () COVID-19 Vaccine () [facility] Start: 07-05-2024 Influenza vaccination [facility] Start: 02-05-2024 End: 02-05-2024 Patient encounter procedure 02/05/2024 7:30 AM EDT Procedure visit [facility] [address] [place] [id number] Rehana Reinoso DO [address] [place], [place] [id number] [facility] Start: 2023 Screening for malign ant neoplasm of colon Colonoscopy [facility] Start: 08-06-2023 FUV, Provider: Lei Perez, Status: Pen, Time: 9:50 AM FUV, Provider: Lei Perez, Status: Pen, Time: 9:50 AM [facility] 600 DO Work Phone: Start: 07-05-2023 COVID-19 Vaccine ( season) COVID-19 Vaccine ( season) [facility] Start: 07-05-2023 Influenza vaccination Influenza Vacc ine [facility] Start: 07-05-2022 Influenza vaccination INFLUENZ A (Season Ended) [facility] Start: 07-04-2022 [facility] Work Phone: Start: 07-04-[address] guided biopsy [facility] Start: 06-12-2022 Pneumococcal Vaccine : 65+ Years (2 of 2 - PCV) Pneumococcal Vaccine: 65+ Years (2 of 2 - PCV) [facility] Start: 02-15-2022 End: 04-17-2022 CBC W Auto Differential panel - Blood CBC + DIFF Lab Routine Malignant neoplasm of upper-outer quadrant of left breast in female, estrogen receptor positive (HCC) Expected: 02/15/2022, Expires: 04/17/2022 [facility] Work Phone: Comment on above: Expected: 02/15/2022 , Expires: 04/17/2022 Start: 02-15-2022 End: 04-17-2022 Comprehensive metabolic 2000 panel - Serum or Plasma COMP METABOLIC PANEL Lab Routine Malignant neoplasm of upper-outer quadrant of left breast in female, estrogen receptor positive (HCC) Expected: 02/15/2022, Expires: 04/17/2022 [facility] Work Phone: Comment on above: Expected: 02/15/2022 , Expires: 04/17/2022 Start: 11-04-2021 ADVANCE DIRECTIVE DISCUSSION ADVANCE DIRECTIVE DISCUSSION [facility] Start: 07-05-2021 Influenza vaccination INFLUENZ A (Season Ended) [facility] Start: 06-12-2021 COVID-19 VACCINE (3 - Booster) COVID-19 VACCINE (3 - Booster) [facility] Start: 2020 ADVANCE DIRECTIVE DISCUSSION ADVANCE DIRECTIVE DISCUSSION [facility] Start: 2020 BONE DENSITY BONE DENSITY [facility] Start: 2020 Fall Risk Screening Fall Risk Screen [facility] Start: 2020 PNEUMOVAX AGE 65 AND OVER WITH 5YR LOOKBACK (#1) PNEUMOVAX AGE 65 AND OVER WITH 5YR LOOKBACK (#1) [facility] Start: 01-26-2017 DIABETES SCREEN DIABETES SCREEN [facility] Start: 2005 Administration of varicella zoster vaccine Zoster (Shingles) Vaccine (1 of 2) [facility] Start: 2005 Screening for malign ant neoplasm of colon [facility] Start: 2005 SHINGRIX VACCINE (1 of 2) SHINGRIX VACCINE (1 of 2) [facility] Start: 2000 COLOGUARD (FIT-DNA) COLOGUARD (FIT-D NA) [facility] Start: 2000 Colonoscopy COLONOSCOPY [facility] Start: 2000 COLORECTAL CANCER SCREENING COLORECTAL CANCER SCREENING [facility] Start: [address] COLONOGRAPHY [facility] Start: 2000 FECAL OCCULT BLOOD FECAL OCCULT BLOO D [facility] Start: 2000 LIPID SCREEN LIPID SCREEN [facility] Start: 2000 SIGMOIDOSCOPY SIGMOIDOSCOPY [facility] Start: 1995 Mammography MAMMOGRAM [facility] Start: 1995 Screening for malign ant neoplasm of breast Mammogram [facility] Start: 1974 DTaP,Tdap and Td Vaccines (1 - Tdap) DTaP,Tdap and Td Vaccines (1 - Tdap) [facility] Start: 1974 Urine microalbumin profile DTAP,TDAP,TD (1 - Tdap) [facility] Start: 1973 Adult BMI Follow Up Plan Adult BMI Follow Up Plan [facility] Start: 1973 HEPATITIS C SCREENING HEPATITIS C SC AUR[facility]A [facility] Start: 1973 HIV SCREENING HIV SCREENING [facility] Start: 1967 Adult depression screening assessment DEPRESSION SCREENING [facility] Start: 1955 Medicare Annual Well ness Visit Medicare Annual Wellness Visit [facility] Start: 1955 Screening for malign ant neoplasm of colon [facility] End: 01-02-2025 Colonoscopy Colonoscopy GI Routine History of colon polyps 1 Occurrences starting 01/03/2024 until 01/02/2025 [facility] Work Phone: Comment on above: 1 Occurrences starti ng 01/03/2024 until 01/02/2025 Cryoglobulin [Presen ce] in Serum [facility] Work Phone: Patient Education Kidney Biopsy [facility] Work Phone: XR Knee - left 1 or 2 Views XR knee 1 or 2 views left Imaging Routine Acute pain of left knee 12/02/2024 10:39 AM EST [facility] Work Phone: [facility] Immunizations Immunization Date Immunization Notes Care Provider [facility] 10-17-2022 Maggie Bivalent Booster Vaccination Jr. Adrian DO Work Phone: [facility] 08-28-2021 COVID-19 mRNA-1273 (Moderna) MD Florinda Flowers Work Phone: [facility] 08-21-2021 influenza virus vaccine, split virus (incl. purified surface antigen) Florinda Flowers Other [facility] Other 08-21-2021 influenza virus vaccine, unspecified formulation Maria L Bean CLIN TECH-[employer]AFF Work Phone: [facility] 10-18-2021 Seasonal trivalent influenza vaccine, adjuvanted, preservative free Florinda Flowers Work Phone: [facility] 600 DO Work Phone: 06-12-2021 pneumococcal polysaccharide vaccine, 23 valent Florinda Flowers Work Phone: [facility] 01-10-2021 COVID-19 mRNA-1273 (Moderna) MD Florinda Flowers Work Phone: [facility] 01-10-2021 COVID-19 vaccine (UNSPECIFIED) Errol Corbin MD Work Phone: [facility] 12-12-2020 COVID-19 mRNA-1273 (Moderna) MD Florinda Flowers Work Phone: [facility] 12-12-2020 COVID-19 vaccine (UNSPECIFIED) Errol Corbin MD Work Phone: [facility] 08-04-2019 influenza virus vaccine, unspecified formulation Florinda Flowers Work Phone: [facility] 600 DO Work Phone: 08-04-2019 influenza, seasonal, injectable [facility] DO Work Phone: [facility] 08-04-2018 influenza virus vaccine, unspecified formulation Florinda Zeinab Flowers Work Phone: [facility] 600 DO Work Phone: 08-04-2017 influenza virus vaccine, unspecified formulation Florinda Zeinab Flowers Work Phone: [facility] 600 DO Work Phone: 09-10-2009 novel [id number], preservative-free, injectable Florinda Flowers Work Phone: [facility] 600 DO Work Phone: Payers Date Payer Category Payer Self-pay [id number] 2021 Managed Care Other (unspecified) [facility] [id number] 2021 Private Health Insurance [id number] .[id number]. [id number] 2020 Medicare [id number]. [id number] 2020 Medicare [id number]. [id number]. [id number] 2020 Private Health Insurance xxx [id number] 1.2.840.838173.1.13.159.2. [id number] 1959 Medicare [id number] 1959 Unknown [id number] 1955 Unknown [id number] 2.16.840.1.603407.3.579.2. 356 1955 Unknown [id number] 2.16.840.1.163343.3.579.2. 593 1955 Unknown [id number] 2.16.840.1.141148.3.579.2. 593 1955 Unknown [id number] 2.16.840.1.561125.3.579.2. 593 1955 Unknown [id number] 2.16.840.1.672824.3.579.2. 593 1955 Unknown [id number] 2.16.840.1.992239.3.579.2. 593 1955 Unknown [id number] 2.16.840.1.339104.3.579.2. 593 1955 Unknown [id number] 2.16.840.1.012714.3.579.2. 593 1955 Unknown [id number] 2.16.840.1.349017.3.579.2. 593 1955 Unknown [id number] 2.16.840.1.826365.3.579.2. 1286 1955 Unknown [id number] 2.16.840.1.701126.3.579.2. 1286 1955 Unknown [id number] 2.16.840.1.659703.3.579.2. 1286 1955 Unknown [id number] 2.16.840.1.156792.3.579.2. 1259 1955 Unknown [id number] 2.16.840.1.914259.3.579.2. 1259 1955 Unknown [id number] 2.16.840.1.052050.3.579.2. 1259 1955 Unknown [id number] 2.16.840.1.836348.3.579.2. 1259 1955 Unknown [id number] 2.16.840.1.165611.3.579.2. 1259 1955 Unknown [id number] 2.16.840.1.136033.3.579.2. 1259 1955 Unknown [id number] 2.16.840.1.809668.3.579.2. 1259 1955 Unknown [id number] 2..840.1.894595.3.579.2. [address] [facility] [id number] Unknown Unknown [id number] 2.16.840.1.602301.3.579.2. 531 Unknown [id number] 2.840.1.564877.3.579.2. 531 Unknown [id number] 2.840.1.456121.3.579.2. 531 Social History Date Type Detail Facility Start: 01-27-2015 End: 01-03-2024 Tobacco smoking status [facility] Former smoker [facility] History of tobacco use Cigarette Smoker [facility] Start: 01-27-2015 End: 02-16-2025 Cigarettes smoked current (pack per day) - Reported [facility] Start: 01-27-2015 End: 05-21-2023 Tobacco use and exposure Never used [facility] Start: 01-27-2015 End: 09-16-2024 Alcohol intake Current drinker of alcohol (finding) [facility] Start: 1955 Sex Assigned At Not on file [facility] Start: 1955 Sex Assigned At Female [facility] Start: 09-02-2024 End: 02-16-2025 Sex Assigned At [facility]ly [facility] [employer] Other Start: 07-04-2022 End: 05-21-2023 Tobacco smoking status INIS Never smoked tobacco (finding) [facility] History of tobacco use Current smoker [facility] Start: 01-16-2023 Childcare Unknown [facility] Start: 01-03-2024 Tobacco Comment Tried cigarett es when 17 years old [facility] Start: 10-17-2022 Alcohol Comment [facility] Start: 06-09-2015 [facility] (finding[facility] Start: 12-25-2023 End: 02-16-2025 Alcoholic beverage intake Ex-drinker (finding) [facility] Medical Equipment Procedure Code Equipment Code Equipment Origin al Text Equipment Identifier Dates Cement Bn Bio 40 gm Rpl [id number] - Sn/A - [id number] ()[id number] [id number]()N/A, [id number] FDA Start: 06-25-2023 Cement Bn Bio 40 gm Rpl [id number] - Sn/A - [id number] ()[id number] [id number]()N/A, [id number] FDA Start: 06-25-2023 Insert Artc 3-4 E-F 10mm Kn Fx Brng Prlng Nxgn Lpsflx Strl Lpsflx Rpl [id number] + [id number] - Sn/A - [id number] ()[id number] [id number] ()N/A, [id number] FDA Start: 06-25-2023 Component Fem E Kn Rt Lpsflx Gndr Melissa? Nxgn Cocr Rpl [id number] - Sn/A - [id number] ()[id number] [id number] ()N/A, [id number] FDA Start: 06-25-2023 Component Ptlr 3 2mm Persona Alply Kn Strl Lf - Sn/A - [id number] Start: 06-25-2023 Plate Tib 66x46m m Nxgn Kn Cmnt Mdlr Stm Prect 4 Tiv Pmma Rpl [id number] + [id number] - Sn/A - [id number] ()[id number] [id number] ()N/A, [id number] FDA Start: 06-25-2023 Goals Date Patient Goal Desired Activity /State Personal health goal Comment on above: Formatting of this n ote might be different from the original. Evaluation of progress towards goal: Home with family support and [facility] Clinical Notes 02-06-2022 to 02-16-2025 Uzma Joel, TECHNICAL STAFF ASSISTANT - 02/16/2025 10:40 AM Kelli Dunlap, PhD - 02/15/2025 2:30 PM Kelli Dunlap, PhD - 02/02/2025 12:30 PM EDTMc Parry, - 01/14/2025 11:15 AM EDT Note Date & Type Note Facility 02-16-2025 History of Present illness Narrative Images from the original note were not included. Chief Complaint Patient presents with Memory Loss Subjective Uzma Ramirez, 69 y.o., female new patient here in neurologic consultation at the request of Dr Florinda Flowers for amnesia. HPI Uzma is here today with her daughter. She has had diarrhea since starting the doxepin. It has not helped her sleep at all. No diet changes. She denies any memory decline. Patient had an EEG, labs, MRI of the brain, and neuropsych testing done since last visit. Her blood pressure is high today. Past Medical History: Diagnosis Date Arthritis Breast CA (CMS/HCC) 2003 Depression (CMS/HCC) High cholesterol (CMS/HCC) Hypertension (CMS/HCC) (normal spontaneous vaginal delivery) x4 x4 Past Surgical History: Procedure Laterality Date BACK SURGERY 2006 DR FLOWERS BACK SURGERY 2016 DR FLOWERS BREAST MASS EXCISION Left 2002 KNEE ARTHROSCOPY W/ MENISCECTOMY Left 07/25/2021 DR ADRIAN MULTIPLE TOOTH EXTRACTIONS 2021 OTHER SURGICAL HISTORY 2004 reconstruction surgery w/ trans flap repair TOTAL HIP ARTHROPLASTY Left 10/2012 DR ADRIAN TOTAL HIP ARTHROPLASTY Right 10/07/2014 DR ADRIAN TOTAL KNEE ARTHROPLASTY Left 01/17/2022 DR ADRIAN TOTAL KNEE ARTHROPLASTY Right 06/25/2023 Dr Adrian Family History Problem Relation Name Age of Onset Hypertension Mother Emphysema Mother Hypertension Father Social History Tobacco Use Smoking status: Never Smokeless tobacco: Never Substance Use Topics Alcohol use: Not Currently Allergies: Fentanyl, Oxycodone-acetaminophen, Penicillins, Sulfa antibiotics, and Terbinafine General: No fever or chills HEENT: No nasal congestion or runny nose Pulmonary: No shortness of breath or cough Cardiovascular: No chest pain or palpitations GI: No nausea or vomiting : No dysuria or hematuria Musculoskeletal: No new aches or pains or muscle weakness Infectious: no recurrent fevers or infections Dermatologic: No rashes or skin lesions Neurologic: No new headaches or dizziness Vitals: 02/16/25 1114 BP: (!) 169/93 Pulse: 58 Body mass index is 30.51 kg/m . weight: 189 lb Neurologic exam: General: Normal body habitus, cooperative, pleasant Mental status: Awake, alert to person, place and time. Recent and remote memory are intact. Attention and concentration are normal. Fund of knowledge is appropriate for level of education. HEENT: NC/AT Cranial nerves: CN II: Visual rodriguez full to confrontation. No loss of vision CN III, IV, : pupils equal round and reactive to light. Extraocular movements intact. No ptosis present. CN V: Facial sensation is normal. CN VII: Full and symmetric facial movement. CN VIII: Hearing is normal CN IX and X: Palate elevates symmetrically. CN XI: Shoulder shrug is normal bilaterally. CN XII: Tongue is midline without atrophy or fasciculation. Speech: Clear and fluent no aphasia or dysarthria Pronator drift: Negative bilateral upper extremity Coordination: Intact, no signs of dysmetria Good finger to nose and rapid alternating movements Sensory: Sensation is intact to light, temperature and vibratory touch throughout four extremities. Pinprick intact in all four extremities. Motor: LUE 5/5 RUE 5/5 LLE 5/5 RLE 5/5 Tone: Physiologic, no tremor, bradykinesia or rigidity DTR: Bilateral Biceps 2/4 Bilateral BR 2/4 Bilateral Patellar 2/4 No spasticity Gait: Normal to casual gait Romberg's Negative Review and summary of old records: MMSE 25/30 TSH 1.834, B12 325 folate 16.30 EEG routine mildly abnormal due to intermittent slow generalized activity consistent with a mild diffuse encephalopathy MRI brain w/o No acute process, cortical atrophy with moderate chronic microvascular ischemic changes Assessment/Plan Diagnoses and all orders for this visit: Other insomnia - cyclobenzaprine (Flexeril) 10 MG tablet; Take 1/2-1 at bedtime Other chronic pain - cyclobenzaprine (Flexeril) 10 MG tablet; Take 1/2-1 at bedtime Primary progressive aphasia (CMS/HCC) Bereavement Memory loss 69 Female who comes in with her daughter for the complaint of memory loss. Dtg is with her again today. This all started after the of her 2 years ago. was sudden and unexpected. The 1st 6 months where a blur she does not remember much of it. She did witness him pass away in their family home. This was traumatic for her. She has since moved out of the home and into a condo. She is very forgetful on short-term things but she can do other things like drive her car manage the finances and other. She does again today get very tearful in the room today. 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 Evaluation demonstrates extremely variable levels of engagement, invalidating the interpretation of low scores. There is a degree of expressive language and executive dysfunction, however, exact extent and etiology is not possible to assay due to compromised validity. Mild depression, prolonged bereavement and poor sleep quality are also likely contributing to her cognitive struggles. Recommended that a family or trust his friend that should monitor finances and medication, grief counseling and improve sleep quality along with memory strategies, re- eval in 1 year. There is a friend/family member helping with meds and finances, more of checking it with her. As of one month ago she did start counseling. She has not regularly attended grief support group and would be a good idea. She does have poor sleep with significant sleep onset insomnia. She was on Ambien and that caused some parasomnias. This was dc'd by PCP due to the parasomnias and no longer there to watch her while on it. Dtg states that nothing was ever tried in its place. We did start her on some doxepin and this gave her diarrhea. We will stay away from antidepressants due to s/e noted below She does have chronic pain. She has had bilateral hips and knees replaced and now needs a knee redone, she has had 2 back surgeries. In discussion about a med to improve her sleep we are going to try some Flexeril before we go to the controlled substances. I am hopeful this will make her more comfortable in bed and she may in turn get some sleep. She has had this in the past without s/e she believes. . She works at the [employer] at [place] and will be starting this in March . Failed: doxepin diarrhea, Ambien caused her to sleep walk/parasomnias, Zoloft GI s/e wellbutrin GI s/e . . . Plan Start flexeril 10 mg 1/2-1 at bedtime for chronic pain and sleep Monitor BP as if very high today Continue with counseling She should also get involved in grief support group Consider HST pending course Reviewed EEG to assess brain waves. Reviewed MRI brain without to assess for structural lesions or strokes that could cause memory loss. Reviewed Labwork to assess for reversible causes of memory loss. Brain exercises. Cardiovascular exercise. Mediterranean diet. 8 hours of sleep. 12 hour fasting through the night if able. Reviewed Neuropsych testing-repeat 02/2026 for diagnostic clarity and update recommendations The diagnosis was all discussed with the patient. All questions were answered and they agreed with the treatment plan. Patient will call if there are any new issues or questions. Pt has been fully educated on their diagnosis, treatment options, follow up plan, and return instructions Return to clinic: 2-3 months documented in this encounter [facility] 02-15-2025 History of Present illness Narrative Images from the original note were not included. Neuropsychology Migel Dunlap, PhD NEUROPSYCHOLOGICAL EVALUATION FEEDBACK Findings are recommendations discussed. Questions addressed. Thank you for allowing me to participate in the care of this individual. Please contact me with any questions at [phone]. documented in this encounter [facility] 02-02-2025 History of Present illness Narrative Images from the original note were not included. Neuropsychology Migel Dunlap, PhD NEUROPSYCHOLOGICAL EVALUATION Uzma Ramirez is a 69 y.o. female referred for neuropsychological evaluation to assist with facilitating and informing medical differential diagnosis and clinical decision-making. The following information was obtained during an interview with the patient, as well as review of available records. PRESENTING PROBLEM: Decline in memory since the passing of her in 2022 which was quite traumatic as she unexpectedly found him in the home. Feels memory concerns fluctuate a bit. Also reported it can take longer to get her words out. Otherwise, remains independent in ADLs, household responsibilities, finances, medication, and driving. Physical activity includes walking dogs. Socially more of a homebody now as was the social one of the two. She reported this is a significant change. Poor sleep quality since passing of . Denied any snoring. No pain complaints. No prior neurological history. 01/26/25 brain MRI nonacute with cortical atrophy and moderate chronic microvascular ischemic changes. MMSE 25/30. No family neurological history. Denied any psychiatric history aside from prolonged grief. No history of alcohol/substance abuse or smoking. [place] language [place]. Completed a bachelor's degree. 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 Lives alone. Has since sold her home and downsized. Has 4 children, 3 nearby. MEDICAL HISTORY/MEDICATION: MEDICATIONS: Current Outpatient Medications Medication Instructions amLODIPine (NORVASC) 5 mg, Oral, Daily aspirin (Aspirin EC Low Strength) 81 MG EC tablet 1 capsule, Every 24 hours cholecalciferol (Vitamin D3) 200 Unit tablet split tablet Daily RT coenzyme Q-10 200 mg, Oral, Daily RT doxepin (SINEquan) 10 MG capsule 1-2 po q hs Fosamax 70 MG tablet 1 tablet 30 minutes before the first food, beverage or medicine of the day with plain water Orally hydrALAZINE (Apresoline) 50 MG tablet Every 8 hours metoprolol tartrate (Lopressor) 25 MG tablet Every 12 hours predniSONE (DELTASONE) 5 mg, Oral, Daily RT rosuvastatin (Crestor) 40 MG tablet Every 24 hours ASSESSMENT: Presented to appointment on time, alert, and Ox3. Rapport easily established. Good eye contact. Socially appropriate during conversation and testing. Hearing adequate for current purposes. Ambulated independently. Purpose for current evaluation explained and patient agreed to participate. Performance validity testing revealed highly variable levels of engagement which is expected to have impacted performance. Findings are therefore interpreted with caution. Vision/Visuoconstruction: Binocular near-point visual acuity 20/25. Visual rodriguez full to confrontation. Visuoconstruction 3rd %ile. Nonverbal abstract reasoning 42nd %ile. Copy of a complex geometric design >16th %ile. 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 Business Records Manager strength 42nd %ile with right-hand, 66th %ile with left. Speeded graphomotor transcoding <1st %ile. Attention/Working Memory: Auditory attention/working memory 2nd %ile (5 digits forward, 3 digits backward, 3 digits during sequencing). Speeded visual scanning/attention 2nd %ile. Speeded visual divided attention d/c. Speech/Language: Expressive speech largely fluent but notable for word finding difficulty. Comprehension adequate for conversational purposes; however, she struggled to understand task instructions at times requiring repetition. Single-word reading 14th %ile. Generative naming to phonemic and semantic cues <1st %ile. Confrontation naming 1st %ile. Verbal abstract reasoning <1st %ile. Learning and Memory: Learning of a word list <1st %ile (3-0-3-3-5), delayed recall 1st %ile. Recognition discriminability 16th %ile. Forced-choice 16/16. Immediate and delayed recall for prose passages <1st %ile. Recognition <2nd %ile. Immediate recall for a variety of geometric figures 1st %ile, delayed 6th %ile. Recognition 17-25th %ile. Executive Functioning: Novel problem-solving and cognitive flexibility 2-5th %ile, 0/6 categories completed in 64 sorts. Responding severely perseverative with poor task conceptualization. Emotional Functioning: Emotional at times during testing. Mild depression and minimal anxiety. Denied any thoughts of self-harm. FINDINGS AND RECOMMENDATIONS: CONCLUSIONS: 1. Estimated average pre-morbid intellectual functioning. 2. Preserved visual acuity without signs of visual field cut or neglect. 3. Preserved bilateral gross motor function. 4. Mild depression and minimal anxiety. OPINION: Current neuropsychological evaluation demonstrates extremely variable levels of engagement, invalidating the interpretation of low scores. It appears there is a degree of expressive language and executive dysfunction; however, exact extent and etiology is not possible to assay due to compromised validity. 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 Mild depression, prolonged bereavement, and poor sleep quality are also likely contributing to her cognitive struggles. RECOMMENDATIONS: Results and recommendations forwarded to treating physician for review during their next appointment. Family or a trusted friend should monitor finances and medication. May benefit from grief counseling. Improved sleep quality. Memory strategies: Regularly and frequently review information that must be remembered. Link new information in as many ways as possible to already known information. This strategy creates several avenues for remembering the information later. Extra repetition of new information, as well as rehearsal of new skills and note taking. New information should be presented in concise and succinct steps to maximize recall. Visual cues and reminders would also be beneficial, as would external memory aids such as smartphone or calendar/daily shutdown planner. Active listening, such as repeating and summarizing information back to presenter when learning important information for future recall may be beneficial as opposed to simply passive listening. Establish a structured and consistent daily routine. Designate a single location to keep personal belongings such as keys, wallet, glasses, watch, and phone. Regular physical activity for optimal cognitive function, sleep, and stress management. She is in need of increased social engagement and for meaningful daily activity. Family may benefit from additional resources provided though the Alzheimer's Association website at: www.alz.org. Neuropsychological re-evaluation in one-year for diagnostic clarity and to update recommendations. Thank you for allowing me to participate in the care of this individual. Please contact me with any questions at [phone]. documented in this encounter [facility] 01-14-2025 History of Present illness Narrative Images from the original note were not included. Chief Complaint Patient presents with Memory Loss Subjective Uzma Ramirez, 69 y.o., female new patient here in neurologic consultation at the request of Dr Florinda Flowers for amnesia. HPI The patient is here today with her daughter. The patient states that her symptoms started after her unexpectedly in front of her 2 years ago. In the last year and a half her memory has gotten worse. Prior to that she was doing well. She was able to do all the things around the house and she was not showing any issues with memory. She has always taken care of the finances and she is still able to do that. She does have to write things down more. She states that the difficulty is with short term memory. She states that she knows what she wants to say but is unable to find the words. She lives at home alone. The house is clean. She is independent with activities of daily living. She is still driving, and states no issues with driving. She ids not getting lost or having any MVAs. When she knew she had an apt here she drove out here to see where it was and did not go to the correct place. Daughter feels there are some age appropriate technology issues. She feels like she is in a fog. She states that she does not sleep well at night. She is awake most of the night. She tried to sleep and is unable to. She will fall asleep for about an hour during the day. She states that she feels tired during the day. She tries to go to bed around 10pm. She will then get up around 5 am. She will toss and turn all night long and cannot turn her brain off. She has had issues sleeping for a long time. She took Ambien as needed for years for about 10 years. In 2022 She was taken off of the Ambien. She had some parasomnias from the Ambien. She does not remember much from the first 6 months after her . She is on prednisone for arm pain suspect PMR- Dr. Ortiz No unsafe behaviors. NO hallucinations Her of a PE. He had foot surgery and a short time after he collapsed. He refused to go to the hospital. He wanted to take a nap. About 20 minutes later he woke up and he was gasping and they called squad. They had a hard time getting him out of his chair. He in the laundry room. She is no longer in the same house. She was going to a grief support group inconsistently. She now is starting to see a counselor and has weekly appointments for a while. Past Medical History: Diagnosis Date Arthritis Breast CA (CMS/HCC) 2003 Depression (CMS/HCC) High cholesterol (CMS/HCC) Hypertension (CMS/HCC) (normal spontaneous vaginal delivery) x4 x4 Past Surgical History: Procedure Laterality Date BACK SURGERY 2006 DR FLOWERS BACK SURGERY 2016 DR FLOWERS BREAST MASS EXCISION Left 2002 KNEE ARTHROSCOPY W/ MENISCECTOMY Left 07/25/2021 DR ADRIAN MULTIPLE TOOTH EXTRACTIONS 2021 OTHER SURGICAL HISTORY 2004 reconstruction surgery w/ trans flap repair TOTAL HIP ARTHROPLASTY Left 10/2012 DR ADRIAN TOTAL HIP ARTHROPLASTY Right 10/07/2014 DR ADRIAN TOTAL KNEE ARTHROPLASTY Left 01/17/2022 DR ADRIAN TOTAL KNEE ARTHROPLASTY Right 06/25/2023 Dr Adrian Family History Problem Relation Name Age of Onset Hypertension Mother Emphysema Mother Hypertension Father Social History Tobacco Use Smoking status: Never Smokeless tobacco: Never Substance Use Topics Alcohol use: Not Currently Allergies: Fentanyl, Oxycodone-acetaminophen, Penicillins, Sulfa antibiotics, and Terbinafine General: No fever or chills HEENT: No nasal congestion or runny nose Pulmonary: No shortness of breath or cough Cardiovascular: No chest pain or palpitations GI: No nausea or vomiting : No dysuria or hematuria Musculoskeletal: No new aches or pains or muscle weakness Infectious: no recurrent fevers or infections Dermatologic: No rashes or skin lesions Neurologic: No new headaches or dizziness Vitals: 01/14/25 1117 BP: 146/88 Pulse: 53 SpO2: 95% Body mass index is 30.51 kg/m . weight: 189 lb Neurologic exam: General: Normal body habitus, cooperative, pleasant Mental status: Awake, alert to person, place and time. Recent and remote memory are intact. Attention and concentration are normal. Fund of knowledge is appropriate for level of education. HEENT: NC/AT Cranial nerves: CN II: Visual rodriguez full to confrontation. No loss of vision CN III, IV, : pupils equal round and reactive to light. Extraocular movements intact. No ptosis present. CN V: Facial sensation is normal. CN VII: Full and symmetric facial movement. CN VIII: Hearing is normal CN IX and X: Palate elevates symmetrically. CN XI: Shoulder shrug is normal bilaterally. CN XII: Tongue is midline without atrophy or fasciculation. Speech: Clear and fluent no aphasia or dysarthria Pronator drift: Negative bilateral upper extremity Coordination: Intact, no signs of dysmetria Good finger to nose and rapid alternating movements Sensory: Sensation is intact to light, temperature and vibratory touch throughout four extremities. Pinprick intact in all four extremities. Motor: LUE 5/5 RUE 5/5 LLE 5/5 RLE 5/5 Tone: Physiologic, no tremor, bradykinesia or rigidity DTR: Bilateral Biceps 2/4 Bilateral BR 2/4 Bilateral Patellar 2/4 No spasticity Gait: Normal to casual gait Romberg's Negative Review and summary of old records: Assessment/Plan Diagnoses and all orders for this visit: Memory loss - MR brain wo contrast; Future - Vitamin B12; Future - Folate; Future - TSH; Future - EEG awake or drowsy; Future - Ambulatory referral to Neuropsychology; Future Primary insomnia Pseudodementia Depression, unspecified depression type (CMS/HCC) 69 Female who comes in with her daughter for the complaint of memory loss. This all started after the of her 2 years ago. The 1st 6 months where a blurred she does not remember much of it. She did witness him in their family home. This was traumatic for her. She is very forgetful on short-term things but she can do other things like drive her car manage the finances and other. She does get very tearful in the room today. She does not need a full dementia workup to make sure we are not missing anything that could cause memory loss however I suspect this is more of a pseudodementia related to the grief and depression of the loss of her . She has not regularly attended grief support group. She just recently started counseling. She does have poor sleep with some insomnia. She was on Ambien and that caused some parasomnias so we will go ahead and start her on some doxepin as the poor sleep and sleep deprivation are likely contributing to the memory loss. She is to call if she has a problem with the doxepin. Plan EEG to assess brain waves. MRI brain without to assess for structural lesions or strokes that could cause memory loss. Labwork to assess for reversible causes of memory loss. Brain exercises. Cardiovascular exercise. Mediterranean diet. 8 hours of sleep. 12 hour fasting through the night if able. MMSE 25/30 Neuropsych testing She needs to go to the support groups and counseling The diagnosis was all discussed with the patient. All questions were answered and they agreed with the treatment plan. Patient will call if there are any new issues or questions. Pt has been fully educated on their diagnosis, treatment options, follow up plan, and return instructions Return to clinic: 2-3 months documented in this encounter [facility] 12-02-2024 History of Present illness Narrative Images from the original note were not included. HISTORY OF PRESENT ILLNESS: EST PT Uzma Ramirez is an 69 y.o. @ female. (EST PT) - 2 YR RECHECK - LT TKA 01/17/22 (~2 YRS, 10 MONTHS) XRAYS TODAY, 12/02/24 IN EPIC XRAYS 02/21/22 IN EXA PREDNISONE 5MG DAILY FOR ARTHRITIS (DR. FLOWERS) MDP 02/21/22, 03/07/22 NO CORTISONE INJ [facility] NO PAIN MANAGEMENT DOING WELL. TAKING PREDNISONE PER DR. FLOWERS DAILY FOR FOR B/L ARM PAIN. GOOD ROM / STRENGTH. NO N/T. NO SWELLING. WALKS DOGS TID DAILY. INTERMITTENT STIFFNESS IN THE AM. +TYL PRN. UNABLE TO TAKE PERCOCET. LT TKA 01/17/2022 (DR. ADRIAN) RT TKA 06/25/2023 (DR. ADRIAN) ALLERGIES: Allergies Allergen Reactions Fentanyl Unknown Leg Weakness Oxycodone-Acetaminophen GI intolerance Penicillins Rash Sulfa Antibiotics Rash Terbinafine Rash HOME MEDICATIONS: Current Outpatient Medications Medication Instructions amLODIPine (NORVASC) 5 mg, Oral, Daily aspirin (Aspirin EC Low Strength) 81 MG EC tablet 1 capsule, Every 24 hours cholecalciferol (Vitamin D3) 200 Unit tablet split tablet Daily RT coenzyme Q-10 200 mg, Oral, Daily RT Fosamax 70 MG tablet 1 tablet 30 minutes before the first food, beverage or medicine of the day with plain water Orally hydrALAZINE (Apresoline) 50 MG tablet Every 8 hours metoprolol tartrate (Lopressor) 25 MG tablet Every 12 hours predniSONE (DELTASONE) 5 mg, Oral, Daily RT rosuvastatin (Crestor) 40 MG tablet Every 24 hours traMADol (ULTRAM) 50 mg, Oral, 2 times daily PRN zolpidem (Ambien) 10 MG tablet TAKE 1 TABLET BY MOUTH ONCE DAILY AT BEDTIME NEEDED PHYSICAL EXAM: Knee Musculoskeletal Exam Gait Gait is normal. Inspection Leg length disparity: no discrepancy Right Erythema: none Effusion: none Edema: none Ecchymosis: none Deformity: none Alignment: normal Previous incision: anterior Incision: well-healed Left Erythema: none Effusion: none Edema: none Ecchymosis: none Deformity: none Alignment: normal Previous incision: anterior Incision: well-healed Palpation Right Right knee palpation is unremarkable. Increased warmth: none Masses: none Tenderness: none Left Left knee palpation is unremarkable. Increased warmth: none Masses: none Tenderness: none Range of Motion Right Right knee range of motion is normal and full. Active extension: 5 Passive extension: 5 Active flexion: 115 Passive flexion: 115 Left Left knee range of motion is normal and full. Active extension: 0 Passive extension: 0 Active flexion: 120 Passive flexion: 120 Strength Right Right knee strength is normal. Extension: 5/5. Flexion: 5/5. Left Left knee strength is normal. Extension: 5/5. Flexion: 5/5. Instability Right Instability signs: none - stable Varus stress grade: normal Valgus stress grade: normal Left Instability signs: none - stable Varus stress grade: normal Valgus stress grade: normal Neurovascular Right Right knee neurovascular exam is normal. Pulses - PT: normal Posterior tibial: 2+ Capillary refill: warm and well-perfused Left Left knee neurovascular exam is normal. Pulses - PT: normal Posterior tibial: 2+ Capillary refill: warm and well-perfused Special Signs Right Right knee special signs are normal. Left Left knee special signs are normal. General Constitutional: appears stated age Labored breathing: no Psychiatric: normal mood and affect Neurological: alert Skin: intact Lymphadenopathy: none Vitals: There is no height or weight on file to calculate BMI. Tobacco Use: Medium Risk (09/16/2024) Received from [employer] Patient History Smoking Tobacco Use: Former Smokeless Tobacco Use: Never Passive Exposure: Not on file Alcohol Use: Not on file IMAGING: Procedures Orders Placed This Encounter Procedures XR knee 1 or 2 views left Order Specific Question: Views Answer: AP Order Specific Question: Views Answer: Lateral Order Specific Question: Reason for exam: Answer: PAIN ASSESSMENT: ICD-10-CM 1. S/P TKR (total knee replacement), right Z96.651 2. Acute pain of left knee M25.562 XR knee 1 or 2 views left 3. History of left knee replacement Z96.652 PLAN: Operative lower extremities were noted to be neurovascularly intact. Patient was able to motor feet toes and ankles in all anatomic planes bilaterally with 5 out of 5 strength. Bilateral knee's patellar tracking was optimal and quad/ham strength was 5 out of 5 to operative lower extremities. There was no varus valgus, anterior-posterior, or rotatory instability noted to the operative knees. Swelling was well controlled, patellas were not ballotable and compartments were soft to the operative lower extremities. Dorsalis pedis and posterior tibial pulses were present and equal bilaterally. There was no evidence of infection or ascending lymphangitis to operative lower extremities. Sensation to light touch was intact to all dermatomes to bilateral lower extremities. Negative Homans and negative Jeff were noted bilaterally to lower extremities. Incisions Were well healed Questions answered in laymen terms at the bedside. The diagnosis, home exercise plan and any ongoing restrictions/ recommendations reviewed. If unable to be reached in office, I recommend evaluation at nearest Emergency Room if any symptoms worsened or new symptoms develop for requiring urgent evaluation. documented in this encounter [facility] 09-16-2024 History of Present illness Narrative Images from the original note were not included. Subjective Uzma Ramirez is a 68 y.o. female status post excision of left posterior scalp inclusion cyst on 09/08/2024. She is doing well and has no concerns. She denies fever, drainage, pain. Objective There were no vitals filed for this visit. Physical Exam Skin: General: Skin is warm and dry. Findings: No bruising or erythema. Comments: Left posterior scalp incision clean, dry and intact. Sutures removed in office today. No signs of infection. Assessment Uzma Ramirez is a 68 y.o.female postop excision of inclusion cyst. Plan Final pathology discussed and given patient in office today. Follow-up as needed. Inclusion cyst [L72.0] WALDEMAR MALLOY [facility] General Surgery [place] This note was created with the assistance of a speech recognition program. While intending to generate a timely document that accurately reflects the content of the visit, no guarantee can be provided that every grammatical or spelling mistake has been or will be identified or corrected. Thank you for your understanding. WALDEMAR Malloy 09/16/24 [id number] documented in this encounter [facility] 09-02-2024 History of Present illness Narrative Images from the original note were not included. [facility] GENER[facility] [address] [place] [phone] CONSULT NOTE CHIEF COMPLAINT Chief Complaint Patient presents with Cyst Lump behind Left ear, referred by Dr. Flowers Uzma Ramirez is a 68 y.o. female who presents with complaints of a lump on the left posterior scalp which has been present for about a month. His slightly painful and uncomfortable. She denies any fevers chills or night sweats. She denies any other medical problems. MEDICATION Current Outpatient Medications: alendronate (FOSAMAX) 70 mg [...] per tablet, Take 1 tablet by mouth nightly. (Patient not taking: Reported on 09/02/2024), Disp: , Rfl: hydrALAZINE (APRESOLINE) 50 mg tablet, Take 1 tablet (50 mg total) by mouth in the morning., Disp: , Rfl: 3 lidocaine (LIDODERM) 5 %, Place 1 patch on the skin daily as needed for pain (pain) for up to 15 doses. Remove & Discard patch within 12 hours or as directed by MD (Patient not taking: Reported on 09/02/2024), Disp: 15 patch, Rfl: 0 metoprolol tartrate (LOPRESSOR) 25 mg tablet, 1 [...] in the morning., Disp: , Rfl: 3 sod sulf-pot chloride-mag sulf 1.479-0.188- 0.225 gram tablet, Please see instructional sheet given by physicians office., Disp: 24 tablet, Rfl: 0 zolpidem (AMBIEN) 10 mg tablet, nightly as needed., Disp: , Rfl: 1 ALLERGY Allergies Allergen Reactions Fentanyl Other (See Comments) Leg Weakness Oxycodone-Acetaminophen GI Disturbance Lamisil [Terbinafine] Rash Penicillins Rash Sulfa Dyne Rash MEDICAL HISTORY Past Medical History: Diagnosis Date Arthritis Breast cancer ([facility]) 2003 Hypertension Obesity Osteopenia Urinary frequency Visual impairment SURGICAL HISTORY Past Surgical History: Procedure Laterality Date BACK SURGERY x2 BREAST RECONSTRUCTION Left COLONOSCOPY 04/2018 MASTECTOMY Left 2002 at [facility] REPLACEMENT TOTAL JOINT KNEE Right 06/25/2023 Performed by Dell Adrian Jr., DO at [facility] TOTAL KNEE Left 01/2022 TOTAL HIP ARTHROPLASTY Bilateral SOCIAL HISTORY Social History Socioeconomic History Marital status: Spouse name: Not on file Number of children: Not on file Years of education: Not on file Highest education level: Not on file Occupational History Not on file Tobacco Use Smoking status: Former Types: Cigarettes Smokeless tobacco: Never Tobacco comments: Tried cigarettes when 17 years old Vaping Use Vaping status: Never Used Substance and Sexual Activity Alcohol use: Yes Comment: rarely Drug use: Not Currently Sexual activity: Defer Other Topics Concern Not on file Social History Narrative Not on file Social Drivers of Health Financial Resource Strain: Not on file Food Insecurity: No Food Insecurity (01/03/2024) Hunger Screening Food Insecurity - Worry: Never True Food Insecurity - Inability: Never True Transportation Needs: Not on file Physical Activity: Not on file Stress: Not on file Social Connections: Not on file Interpersonal Safety: Not on file Housing Instability: Not on file FAMILY HISTORY Family History Problem Relation Age of Onset Hypertension Mother Hypertension Father REVIEW OF SYSTEMS: Constitutional: Denies fevers, denies recent illnesses. Rest review of systems negative except as above. PHYSICAL EXAM Constitutional: She is oriented to person, place, and time. Vital signs are normal. She appears well-developed and well-nourished. HEENT: Head: Normocephalic and atraumatic. On the posterior left scalp is a proximally a 1-1/2-2 cm protruding cyst versus lipoma although it has only been present for 1 month Eyes: Conjunctivae, EOM and lids are normal. Neck: Trachea normal. Neck supple. No thyroid mass present. Cardiovascular: Normal rate and regular rhythm. Pulmonary/Chest: Effort normal and breath sounds normal. Neurological: She is alert and oriented to person, place, and time. Skin: Skin is warm, dry and intact. Psychiatric: She has a normal mood and affect. Her speech is normal and behavior is normal. Cognition and memory are normal. IMPRESSION 1. Inclusion cyst left posterior scalp 1.5-2 cm 2. History of arthritis, breast cancer, hypertension ASSESSMENT & PLAN Excision of inclusion cyst under local MAC in the prone position at the [facility]. Risks benefits alternatives to procedure may include infection bleeding pain scarring or recurrence. She understood and wished to proceed. Incidentally she lost her within the last year from a PE after foot surgery. Evaluation included: Preparing to see the patient (e.g., review of tests) Obtaining and/or reviewing separately obtained history Performing a medically appropriate examination and/or evaluation Counseling and educating the patient/family/caregiver Referring and communicating with other health career development manager Inclusion cyst [L72.0] Rehana Reinoso DO This note was created with the assistance of a speech recognition program. While intending to generate a timely document that accurately reflects the content of the visit, no guarantee can be provided that every grammatical or spelling mistake has been or will be identified or corrected. Thank you for your understanding. documented in this encounter [facility] 02-14-2024 Miscellaneous Notes ----- Message from Rehana Reinoso DO sent at 02/14/2024 9:03 AM EDT ----- Please tell her that she had several precancerous polyps and 1 of them was a tubulovillous adenoma which is more precancerous and I recommend she have a surveillance colonoscopy in 1 year instead of 5. Please put her on the schedule for 1 year. ThanksDr. Lacey documented in this encounter [facility] 02-14-2024 Telephone encounter Note ----- Message from Rehana Reinoso DO sent at 02/14/2024 9:03 AM EDT ----- Please tell her that she had several precancerous polyps and 1 of them was a tubulovillous adenoma which is more precancerous and I recommend she have a surveillance colonoscopy in 1 year instead of 5. Please put her on the schedule for 1 year. ThanksDr. Lacey [facility] 01-03-2024 History of Present illness Narrative Images from the original note were not included. Chief Complaint: History of colon polyps History of Present Illness Uzma Ramirez is a 68 y.o. female who presents [...] Medical History: Diagnosis Date Arthritis Breast cancer (CMS-HCC) 2002 Hypertension Obesity Osteopenia Urinary frequency Visual impairment Past Surgical History: Procedure Laterality Date BACK SURGERY x2 BREAST RECONSTRUCTION Left COLONOSCOPY 04/2018 MASTECTOMY Left 2002 at [facility] REPLACEMENT TOTAL JOINT KNEE Right 06/25/2023 Performed by Dell Adrian Jr., DO at [facility] TOTAL KNEE Left 01/2022 TOTAL [...] found for: INR , PROTIME Assessment Uzma Ramirez is a 68 y.o.female who presents to [...] patient/family/caregiver Referring and communicating with other health career development manager History of colon polyps [Z86.010] WALDEMAR MALLOY [facility] General Surgery [place] This note was created with the assistance of a speech recognition program. While intending to generate a timely document that accurately reflects the content of the visit, no guarantee can be provided that every grammatical or spelling mistake has been or will be identified or corrected. Thank you for your understanding. WALDEMAR Malloy 01/03/24 1155 documented in this encounter [facility] 10-29-2023 Evaluation note Encounter Date Diagnosis Assessment Notes Oct, Primary insomnia (ICD-10 - F51.01) Oct, Essential (primary) hypertension (ICD-10 - I10) [facility] Other 10-02-2023 Evaluation note* Encounter Date Diagnosis Assessment Notes Treatment Notes Treatment Clinical Notes Aug, Primary insomnia (ICD-10 - F51.01) Aug, Primary hypertension (ICD-10 - I10) [facility] Other 08-15-2023 Evaluation note* Encounter Date Diagnosis Assessment Notes Treatment Notes Treatment Clinical Notes Jun, Essential (primary) hypertension (ICD-10 - I10) Chronic problem - stable; refilled meds. Jun, Preoperative examination (ICD-10 - Z01.818) Uzma is in good health. I do not have labs from [facility], but barring any abnormalities she is low risk for upcoming knee replacement. Jun, Chronic kidney disease, stage 3a (ICD-10 - N18.31) Established with Nephrology - continue to monitor and keep bp controlled. [facility] Other 02-20-2023 Evaluation note* Encounter Date Diagnosis [...] F51.01) chronic problem. denies issues with medication. [facility] Other 02-02-2023 Evaluation note* Encounter Date Diagnosis Assessment Notes Treatment Notes Treatment Clinical Notes Dec, Primary hypertension (ICD-10 - I10) [facility] Other 11-27-2022 Evaluation note* Encounter Date Diagnosis [...] no improvement in 2 to 3 days [facility] Other 10-11-2022 Evaluation note* Encounter Date Diagnosis [...] negative. Kidney biopsy did not show glomerulonephritis [facility] Other 08-09-2022 Evaluation note* Encounter Date Diagnosis [...] been negative. Patient is following with Dr. Perez in cardiology clinic for hypertension management I [...] kidney biopsy to rule out lupus nephritis [facility] Other 04-14-2022 NoteHNO ID: [id number] Author: Errol Corbin MD Service: ? Author Type: Physician Type: Progress Notes Filed: 02/16/2022 11:02 AM Note Text: PATIENT NAME: Uzma Ramirez DATE: 02/15/2022 PRIMARY CARE PHYSICIAN: Florinda Flowers [...] Normal RADIOLOGY/OTHER STUDIES: 06/28/2021 Bilateral screening mammogram ([facility]) No significant suspicious findings in the right breast or left breast. Routine mammogram in 12 months recommended. 02/28/2021 Bone density DEXA ([facility]) Osteoporosis ASSESSMENT/PLAN: 1. Malignant neoplasm of left breast in female, estrogen receptor positive (HCC) - ICD9: 174.4, V86.0, ICD10: C50.412, Z17.0 (primary diagnosis) Stage IIB (pT2, N1mic, M0) ER/AK positive HER-2 negative left-sided breast cancer diagnosed November 2002. Status post left modified radical right mastectomy and lymph node dissection 12/01/2002 (Dr. Dinesh Gomez). Postop the patient received adjuva (more content not included)...[facility]04-05-2022 Miscellaneous Notes* Telephone Encounter - Corinne Bentley MA - 02/06/2022 11:[address]/sign lab orders for 02/15/22. Thanks. Corinne Reyes MA [facility] Diagnosis Malignant neoplasm of upper-outer quadrant of left breast in female, estrogen receptor positive (HCC)- Primary documented in this encounter [facility] noteNo assessment information availableMi[facility] Work Phone: Evaluation noteNo InformationNort Acacia [facility] Other Evaluation note* Diagnosis Onset Date Resolution Status Scalp mass acute [facility] Work Phone: Evaluation note* Diagnosis S/P TKR (total knee replacement), right- Primary Acute pain of left knee History of left knee replacement [facility] History of colon polyps- Primary [facility] Diagnosis History of colon polyps- Primary [facility] Diagnosis History of colon polyps [facility]* Diagnosis Inclusion cyst- Primary Sebaceous cyst [facility]* Diagnosis Inclusion cyst Sebaceous cyst [facility] Diagnosis Inclusion cyst- Primary Sebaceous cyst [facility]* Diagnosis Memory loss- Primary Primary insomnia Persistent disorder of initiating or maintaining sleep 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 Depression, unspecified depression type (CMS/HCC) documented in this encounter [facility]* Diagnosis Primary progressive aphasia (CMS/HCC)- Primary Memory loss Other insomnia Bereavement Bereavement, uncomplicated 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) documented in this encounter [facility]* Diagnosis Primary progressive aphasia (CMS/HCC)- Primary Memory loss Other insomnia Bereavement Bereavement, uncomplicated 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) Word finding difficulty Primary insomnia Persistent disorder of initiating or maintaining sleep Depression, unspecified depression type (CMS/HCC) documented in this encounter [facility]* Diagnosis Other insomnia- Primary Other chronic pain Primary progressive aphasia (CMS/HCC) Bereavement Bereavement, uncomplicated Memory loss documented in this encounter [facility] Narrative - Reported* Type Description Date [...] KNEE REPLACEMENT 01/2022 Surgical History HIP REPLACEMENT 2013 Hospitalization History SEE ABOVE [facility] Other InstructionsNot on filedocumented in this encounter [facility] SystemInstructionsNot on filedocumented in this encounter [facility] SystemInstructionsNot on filedocumented in this encounter [facility] SystemInstructionsNot on filedocumented in this encounter [facility] ([facility])No reason for referral information availableFort [facility] Work Phone: Summary Purpose Family History Unknown Family Member [...] heart artery stent: Sist er(V45.82, Z95.5) Status:Active Relationship Condition Age at Onset Recorded Date/T greg brother Hypertension Unknown father Hypertension Unknown Unknown Not Specified Unknown Hypertension Unknown natural son Diabetes mellitus Unknown sister Diabetes mellitus Unknown History of stroke Unknown Malignant neoplasm Unknown Relationship Condition Age at Onset Recorded Date/T greg brother Hypertension Unknown father Hypertension Unknown Unknown mother Unknown Hypertension Unknown son Diabetes mellitus Unknown sister Diabetes mellitus Unknown History of stroke Unknown Malignant neoplasm Unknown Advance Directives Advance Directive Response Recorded Date/ Time Advance Directives No June 12 11:20am Advance Directive Response Recorded Date/ Time Advance Directives No June 12 10:20am Date Activated Date Inactivated Comments 06/24/2023 8:52 PM 06/26/2023 3:54 PM Latest Code Status on File Code Status Date Activated Date Inactivated Comments Full Code 06/24/2023 8:52 PM 06/26/2023 3:54 PM Date Activated Date Inactivated Comments 06/24/2023 8:52 PM 06/26/2023 3:54 PM Chief Complaint and Reason for Visit Chief Complaint z01.818 Chief Complaint ckd stage 3 hematuri a Chief Complaint Unknown Chief Complaint lump behind left ear Unknown Reason for Visit Scalp mass Chief Complaint Admit Date 2-3 month follow up May 05, 2025 10:42 am Chief Complaint overdue HTN* overdue HTN * [...] on prednisone managed by rheumatology * Lei Perez MD, [facility] Additional Source Comments Source Comments (unrecognize d section and content) In the event this informatio n is protected by the Federal Confidentiality of Alcohol and Drug Abuse Patient Records regulations: The Federal rules restrict any use of the information to criminally investigate or prosecute any alcohol or drug abuse patient.[facility] HealthIn the event this information is protected by the Federal Confidentiality of Alcohol and Drug Abuse Patient Records regulations: The Federal rules restrict any use of the information to criminally investigate or prosecute any alcohol or drug abuse patient.[facility] HealthIn the event this information is protected by the Federal Confidentiality of Alcohol and Drug Abuse Patient Records regulations: The Federal rules restrict any use of the information to criminally investigate or prosecute any alcohol or drug abuse [facility] INFORMATION SOURCE (unrecogn ized section and content) DATE CREATED AUTHOR 12/28/2021 [facility] dical Specialist DATE CREATED AUTHOR AUTHOR'S ORGANIZ ATION 02/16/[address] [facility] DATE CREATED AUTHOR AUTHOR'S ORGANIZ ATION 08/04/2022 [facility] ical [facility] DATE CREATED AUTHOR AUTHOR'S ORGANIZ ATION 08/04/2022 [facility] DATE CREATED AUTHOR AUTHOR'S ORGANIZ ATION 02/24/2023 [facility] DATE CREATED AUTHOR AUTHOR'S ORGANIZ ATION 09/11/2024 [facility] DATE CREATED AUTHOR AUTHOR'S ORGANIZ ATION 09/18/2024 [facility] DATE CREATED AUTHOR AUTHOR'S ORGANIZ ATION 02/16/2025 [facility] dical Specialists [facility] Reason for Visit (unrecogniz ed section and content) Reason Comments Lab Orders Reason Comments Pain Reason Comments Colon Cancer Screening 1 YEAR RECALL, [place] LONOSCOPY by DR REINOSO Reason Comments Cyst Lump behind Left ear , referred by Dr. Flowers Reason Comments Post-op Post op excision of inclusion cyst on left posterior scalp performed 09/08/24 at [facility] Reason Comments Memory Loss Specialty Diagnoses / Procedures Referred By Lilibeth t Referred To Contact Neurology Diagnoses Other amnesia Procedures AK OFFICE/OUTPATIENT NEW LOW MDM 30 MINUTES Florinda Flowers MD [address] [place] [address] Phone: tel: fax: Dennis Henriquez DO [address] [place] [phone] Phone: tel: fax: Referral ID Status Reason Start Date Expiration Date V isits Requested Visits Authorized [id number] Closed Consult and Treat 12/16/2024 06/14/2025 1 1 Reason Comments Memory Loss Care Teams (unrecognized sec tion and content) [employer]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 Relationship Specialty Start Date End Date Florinda Flowers MD [address] [place] [phone] PCP - General Family Practice 01/26/14 Team [...] Active Teetee Rizvi MD Attending Provider Active Team Status: Inactive Member Role Status Dates Florinda Flowers MD Primary Care Provider Active Start: February 05, 2024 End: February 05, 2024 Rehana Reinoso DO Attending Provider Active Start: February 05, 2024 End: February 05, 2024 Team Status: Inactive Member Role Status Dates Florinda Flowers MD Primary Care Provide r, Attending Provider Active Start: August 21, 2024 End: August 21, 2024 Team Status: Inactive Member Role Status Dates Florinda Flowers MD Primary Care Provider Active Start: September 08, 2024 End: September 08, 2024 Rehana Reinoso DO Attending Provider Active Start: September 08, 2024 End: September 08, 2024 [employer]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 Relationship Specialty Start Date End Date Florinda Flowers MD [address] [place] [id number] PCP - General 04/30/18 [employer]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 Relationship Specialty Start Date End Date Florinda Flowers MD [address] [facility] [place] [address] PCP - General Family Medicine 05/21/23 [employer]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 Relationship Specialty Start Date End Date Florinda Flowers MD [address] [facility] [place] [address] PCP - General Family Medicine 05/21/23 [employer]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 Relationship Specialty [place] [address] [place] [address], [place] [address] PCP - General 04/30/18 [employer]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 Relationship Specialty [place] [address] [place] [address], [place] [address] PCP - General 04/30/18 [employer]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 Relationship Specialty [place] [address] [place] [address], [place] [address] PCP - General 04/30/18 [employer]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 Relationship Specialty [place] [address] [place] [address], [place] [address] PCP - General 04/30/18 [employer]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 Relationship Specialty Start Date End Date Florinda Flowers MD [address] [place] [address] PCP - General 04/30/18 [employer]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 Relationship Specialty Start Date End Date Florinda Flowers MD [address] [place] [address] PCP - General 04/30/18 [employer]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 Relationship Specialty Start Date End Date Florinda Flowers MD [address] [place] [facility] [address] PCP - General Family Medicine 05/21/23 Mc Parry DO [address] [place] [address] Referring Physician Neurology 01/14/25 [employer]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 Relationship Specialty Start Date End Date Florinda Flowers MD [address] [place] [facility] [place] [address] PCP - General Family Medicine 05/21/23 Mc Parry DO [address] [place] [address] Referring Physician Neurology 01/14/25 [employer]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 Relationship Specialty Start Date End Date Florinda Flowers MD [address] [place] [facility] [phone] PCP - General Family Medicine 05/21/23 Mc Parry DO [address] [place] [address] Referring Physician Neurology 01/14/25 [employer]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 Relationship Specialty Start Date End Date Florinda Flowers MD [address] [place] [facility] [address] PCP - General Family Medicine 05/21/23 Mc Parry DO [address] [facility] [place] [address] Referring Physician Neurology 01/14/25 [employer]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 Relationship Specialty Start Date End Date Florinda Flowers MD [address] [place] [address] PCP - General Family Medicine 05/21/23 Mc Parry DO [address] [place] [address] Referring Physician Neurology 01/14/25 [employer]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 Relationship Specialty Start Date End Date Florinda Flowers MD [address] [place] [address] PCP - General Family Medicine 05/21/23 Mc Parry DO [address] [place] [address] Referring Physician Neurology 01/14/25 Team Status: Inactive Member Role Status Dates Florinda Flowers MD Primary Care Provider Active Start: May 05, 2025 End: May 05, 2025 Uzma Joel APRN Attending Provider Active Start: May 05, 2025 End: May 05, 2025 [employer]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 Relationship Specialty Start Date End Date Florinda Flowers MD [address] [place] [phone] PCP - General Family Medicine 05/21/23 Mc Parry DO [address] [place] [address] Referring Physician Neurology 01/14/25 Goals (unrecognized section and content) Goals may be documented in a n alternate sectionNo InformationGoals may be documented in an alternate sectionNo InformationNo InformationNo InformationNo InformationNo InformationNo InformationNo InformationNo InformationNo InformationNo InformationGoals may be documented in an alternate sectionGoals may be documented in an alternate sectionGoals may be documented in an alternate sectionGoals may be documented in an alternate section FOR RECORDS PERTAINING TO PATIENTS WHO ARE [...] BE BASED ON THE PRIMARY CLINICAL RECORDS. [facility]. provides no warranty or guarantee of the accuracy or completeness of information in this document.
[2025-08-20 13:17] LABS: Hematocrit 41.1 % (36.0-48.0); Hemoglobin 13.4 g/dL (12.0-16.0); Immature Granulocytes Abs Auto 0.02 10^3/uL (0.00-0.03); Immature Granulocytes Pct Auto 0.2 % (0.0-0.5); Lymphocytes Absolute Auto 1.4 10^3/uL (1.2-3.8); Mean Corpuscular HGB Conc 32.6 g/dL (29.9-35.2); Mean Corpuscular Hemoglobin 30.1 pg (26.7-34.0); Mean Corpuscular Volume 92.4 fL (81.0-99.0); Platelet Count 278 10^3/uL (150-450); Red Blood Count 4.45 10^6/uL (4.20-5.40); White Blood Count 8.3 10^3/uL (4.0-11.0)
[2025-08-20 13:26] LABS: Uric Acid 5.2 mg/dL (2.6-6.0)
[2025-08-24 18:09] LABS: Antinuclear Antibodies, IFA Positive (.)
== END 2025-08-20 11:07 | disposition home or self-care (01) ==
LOC: LAB 11:08
PROVIDERS: PCP Family Medicine; Visit Provider Personal Emergency Response Attendant
DX: M25.50 Pain in unspecified joint (principal)
CPT/HCPCS: 36415; 81374; 84550; 85025; 85652; 86038; 86140; 86225; 86235; 86431; 86618

== ENCOUNTER 2025-08-27 11:04 | Outpatient (OUT) | payer MEDICARE, SELFPAY ==
--- OUTSIDE RECORDS SUMMARY | 2025-08-20 09:15 | XMS_ITS | Encounter Summary ---
Author Organization [facility] Address [address] [facility] [place] [address] Care Team Providers Care Ophthalmology Assistant Name Role Phone Grace Dyer MD Primary Care Provider [phone] Britni Parry DO Unavailable [phone] Reason for Visit * ReasonCommentsPain Encounter Details DateTypeDepartmentCare Team (Latest Contact Info)Rrxjpdaoklt72/17/2025 9:15 AM EDTOffice Visit [facility] [address] [place] [address] Balta Milton PA [address] [place] [address] Acute right hip pain (Primary Dx); History of total right hip replacement; Right hip pain; Acute pain of left shoulder; Polyarthralgia Social History Tobacco UseTypesPacks/DayYears UsedDateSmoking Tobacco: NeverSmokeless Tobacco: NeverAlcohol UseStandard Drinks/WeekCommentsNot Currently0 (1 standard drink = 0.6 oz pure alcohol)CommentsUnknownSex and Gender InformationValueDate RecordedSex Assigned at BirthNot on fileLegal SioSrqmaf21/15/2023 8:13 PM EDT Gender IdentityNot on fileSexual [...] requiring urgent evaluation. Visit was preformed using Hands-On Mobile speech recognition. documented in this encounter Plan of Treatment DateTypeDepartmentCare Team (Latest Contact Info)Wtzbcxtuxyd69/31/2025 10:45 AM EDTOffice Visit [facility] [address] [place] [address] Balta Milton PA [address] [place] [address] NameTypePriorityAssociated DiagnosesOrder ScheduleRheumatoid factorLabRoutine Polyarthralgia [...] NamePriorityDate/TimeAssociated DiagnosisCommentsXR HIP 2 OR 3 VW TEVLQMfbbrtg16/17/2025 9:28 AM EDT Right hip pain documented [...] DateEnd Date Grace Dyer MD [address] [place] [address] PCP - GeneralFamily Medicine05/21/23 Britni Parry DO [address] [place] [address] Referring PhysicianNeurology01/14/25documented as of this encounter
--- OUTSIDE RECORDS SUMMARY | 2025-08-20 09:30 | XMS_ITS | Encounter Summary ---
Author Organization [facility] Address [address] [facility] [place] [address] Care Team Providers Care Airframe And Powerplant Mechanic Name Role Phone Grace Dyer MD Primary Care Provider [phone] Britni Parry DO Unavailable [phone] Encounter Details DateTypeDepartmentCare Team (Latest Contact Info)Uwenwtleixs32/17/2025 9:30 AM EDTAncillary Procedure [facility] Orthopaed[facility] [address] [place] [address] Social History Tobacco UseTypesPacks/DayYears UsedDateSmoking Tobacco: NeverSmokeless Tobacco: NeverAlcohol UseStandard Drinks/WeekCommentsNot Currently0 (1 standard drink = 0.6 oz pure alcohol)CommentsUnknownSex and Gender InformationValueDate RecordedSex Assigned at BirthNot on fileLegal DkgXophxt09/15/2023 8:13 PM EDT Gender IdentityNot on fileSexual OrientationNot on filedocumented as of this encounter Plan of Treatment DateTypeDepartmentCare Team (Latest Contact Info)Zbkjipmgxer65/31/2025 10:45 AM EDTOffice Visit [facility] [address] [place] [address] Balta Milton, PA [address] [place] [address] documented as of this encounter Procedures Procedure NamePriorityDate/TimeAssociated DiagnosisCommentsXR HIP 2 OR 3 VW ONMFCVhbtgdn67/17/2025 9:28 AM EDT Right hip pain documented [...] DateEnd Date Grace Dyer MD [address] [facility] [place] [address] PCP - GeneralFamily Medicine05/21/23 Britni Parry DO [address] [place] [address] Referring PhysicianNeurology01/14/25documented as of this encounter
--- OUTSIDE RECORDS SUMMARY | 2025-08-25 08:59 | XMS_ITS | Continuity of Care Document ---
Author Organization [facility] Address [address] [place] [address] Phone Care Team Providers Care Manager Training And Development Name Role Phone Grace Dyer MD Primary Care Provider Grace Dyer MD Attending Provider [phone] Care Teams Patient Care Team Team Status: Active Member Role/Relationship Status Dates Grace Dyer MD Primary Care Provider Active Patient Care Team Team Status: Active Member Role/Relationship Status Dates Grace Dyer MD Primary Care Provider Active Start: August 20, 2025 Taylor Muir ProviderActiveStart: August 20, 2025 Patient Care Team Team Status: Inactive Member Role/Relationship Status Dates Grace Dyer MD Primary Care Provider Active Start: August 25, 2025 End: August 25, 2025Taylor Muir ProviderActiveStart: August 25, 2025 End: August 25, 2025 Chief Complaint and Reason for Visit Chief Complaint Admit Date Med f/u August 25, 2025 1 1:04am Allergies, Adverse Reactions, Alerts Allergen Type Severity Reaction Last Updated Verified Status Comments acetaminophen Allergy Unknown Hives August 11:14am Yes Active fentanylAllergyUnknownHivesOctober 2024 11:14amYesActiveOnset Date: 09/20/2017oxycodoneAllergyUnknownVomitingOctober 2024 11:14amYesActive PenicillinsAllergyUnknownRashOctober 2024 11:14amYesActivestarchAllergy UnknownHivesOctober 2024 11:14amYesActiveOnset Date: 07/29/2017Sulfa (Sulfonamide Antibiotics)AllergyUnknownRashOctober 2024 11:14amYesActive talcAllergyUnknownHivesOctober 2024 11:14amYesActiveOnset Date: 07/29/2017 terbinafineAllergyUnknownRashOcthealthsouth lakeview rehabilitation hospital 2024 11:14amYesActiveOnset Date: 07/29/2017 Social History Smoking Status Status Start Date End Date Date of Observa tion Never smoked tobacco (finding) July 04, 2022 4:22pm Observation Status Observation Response Date of Response Legal Sex [facility] (finding) [facility] Family History Relationship Condition Age at Onset Recorded Date/T greg brother Hypertension Unknown fatherHypertensionUnknownDeceasedUnknownmotherDeceasedUnknownHypertensionUnknown sonDiabetes mellitusUnknownHypertensionUnknownsisterDiabetes mellitusUnknown History of strokeUnknownHypertensionUnknownMalignant neoplasmUnknown Problems Active Problems Problem Diagnosis/Recorded Date Onset Date Stat us Scalp mass August 21, 2024 11:22am Unknown A ctive Primary progressive aphasia May 05, 2025 11:20am Unk nown Active Word finding difficulty May 05, 2025 11:23am Unknown Active Medicare annual wellness vis it, subsequent December 15, 2024 11:53am Unknown Active Left lumbar pain April 30, 2024 11:00am Unknown Active Insomnia January 16, 2024 4:01pm Unknown Acti ve Screening mammogram for breast cancer December 10 3:40pm Unknown Active Arthralgia March 19, 2024 10:23pm Unknown Activ e Osteoporosis December 10, 2024 3:40pm Unknown Ac tive Bereavement May 05, 2025 11:20am Unknown Activ e Depression March 19, 2024 10:23pm Unknown Activ e Hyperlipidemia, unspecified March 11, 2024 1:46pm Unkno wn Active Essential (primary) hypertension March 11, 2024 1:46pm Unknown Active Memory changes March 19, 2024 10:13pm Unknown Act nayana Medications Medication Status Dose Units Route Directions Qty Days Refills S tart Date Stop Date End Date Reason(s) Instructions Adherence Metoprolol Tartrate 25 mg tablet Discontinued 25 MG PO Twice daily 180 3March 2023 4:01pmFebruary 2024 9:13amZolpidem 10 mg tablet Sqpynfaoncom53AWUHKrqtc at bedtime as needed for Lppzgkda85048Vclio 2023 4:01pmMay 2023 12:12pmInsomnia Insomnia, unspecifiedHydralazine 50 mg tabletDiscontinued0.ROUTE.NRZAJBA095Rizsz 2023 1:02pmMay 2023 11:49amTake 1 tablet by mouth once daily with foodBupropion Hcl (Wellbutrin Xl) 150 mg tablet extended release 24 hr Xsmfyfxywhoe727HKJQJdhhs ganuqln522Mbl 2023 12:00amJune 2023 12:01pm Prednisone 5 mg ipeupiBzethnqfpajh5QZNZAuehw733Qpeb 2023 9:08amJune 2023 11:07amAmlodipine 5 mg uapndeCtwdwstzbbhy1UTWKWqnff010Beyx 2023 12:19pmSeptember 2023 1:15pmPrednisone 5 mg oytbjyEdxfnclxywzh9TUTMPskma207 May 06, 2024 12:19pmNovember 2023 11:43amAmlodipine 5 mg tablet Wokzznvpywfr1APGCBwfrc199Hvahblqrd 3rd, 2024 1:15pmJanuary 2024 9:19am Hydralazine 50 mg wbhudbBdtkzrtaemtr89BHJSSrhmh487Vpcbmxuuq 3rd, 2024 1:15pm September 15, 2024 11:43amAlendronate 70 mg tabletDiscontinued0.ROUTE.NCKXDQZ20 0September 2023 10:20amNovember 2023 11:43amTAKE 1 TABLET BY MOUTH ONCE WEEKLY 30 MINUTES BEFORE THE FIRST FOOD, BEVERAGE OR MEDICINE OF THE DAY WITH PLAIN WATERPrednisone 5 mg tabletDiscontinued0.ROUTE.SUATGYG310Bfqemvoa 12th, 2024 11:42amDecember 2023 8:15amTake 1 tablet by mouth once daily Hydralazine 50 mg kvmvtuXduzmxpgpprf57YVFFUxhtb072Glfjbgmw 12th, 2024 11:42am March 03, 2025 11:52amAlendronate 70 mg tabletDiscontinued0.ROUTE.RDVPHLC102 September 15, 2024 11:42amNovember 2023 9:31amTAKE 1 TABLET BY MOUTH ONCE WEEKLY 30 MINUTES BEFORE THE FIRST FOOD, BEVERAGE OR MEDICINE OF THE DAY WITH PLAIN WATERAlendronate 70 mg tabletActive0.ROUTE.CPZCATK008RelcnaiqSeptember 21, 2024 9:31amTAKE 1 TABLET BY MOUTH ONCE WEEKLY 30 MINUTES BEFORE THE FIRST FOOD, BEVERAGE OR MEDICINE OF THE DAY WITH PLAIN WATERComplies with drug therapy Bupropion Hcl 150 mg tablet extended release 24 hrDiscontinued0.ROUTE.IXDMJAM207 October 05, 2024 9:45amApril 2024 11:52amTAKE 1 TABLET BY MOUTH IN THE MORNINGPrednisone 5 mg tabletDiscontinued0.ROUTE.GSKDYZO553Vfybfzrh 2023 8:15amJanuary 2024 12:21pmTake 1 tablet by mouth once dailyRosuvastatin 40 mg tabletDiscontinued0.ROUTE.FISMCGM441Ojwxoue 2024 3:34pmApril 2024 8:26amTake 1 tablet by mouth once dailyPrednisone 5 mg tabletDiscontinued0.ROUTE .XUBVCNC035Zkjqeax 2024 12:21pmFebruary 2024 2:55pmTake 1 tablet by mouth once dailyAmlodipine 5 mg tabletDiscontinued0.ROUTE.KJNXIPY368Ewdkhhd 2024 9:19amJune 2024 2:38pmTake 1 tablet by mouth once daily Metoprolol Tartrate 25 mg oayoszBzxsnmheongu86YJMMEddzf tsnqe4940Yohbqpgy 2024 9:13amAugust 2024 7:52amPrednisone 5 mg tabletDiscontinued0.ROUTE .BITMJTU255Axnazwwn 2024 2:55pmApril 2024 3:31pmTake 1 tablet by mouth once dailyPrednisone 5 mg tabletDiscontinued0.ROUTE.SJJKLUA695Aelzi 2024 3:31pmApril 2024 11:52amTake 1 tablet by mouth once dailyRosuvastatin 40 mg tabletActive0.ROUTE.SLRTHVC840Tzmib 2024 8:26amTake 1 tablet by mouth once dailyComplies with drug therapyBupropion Hcl 150 mg tablet extended release 24 hrActive0.ROUTE.DFXBFTT787Ubfzl 2024 11:52amTAKE 1 TABLET BY MOUTH IN THE MORNINGComplies with drug therapyHydralazine 50 mg bymewjHsgifn02IJ HCEzrvz152Zttwu 2024 11:52amComplies with drug therapyPrednisone 5 mg tabletDiscontinued0.ROUTE.MJCYPFG575Akufc 2024 11:52amSeptember 2024 1:44pmTake 1 tablet by mouth once dailyAmlodipine 5 mg tabletDiscontinued0.ROUTE .YOGUMNU591Soew 2024 2:38pmAugust 2024 7:52amTake 1 tablet by mouth once dailyMetoprolol Tartrate 25 mg syedklCagkgmytxkfx68YQFMPymem udrrg6245 June 16, 2025 7:51amOctober 2024 11:49amAmlodipine 5 mg tablet Discontinued0.ROUTE.QWZBUYI365Jyawfc 2024 7:51amOctober 2024 11:49am Take 1 tablet by mouth once dailyPrednisone 5 mg tabletActive0.ROUTE.CFTGTCZ344 July 07, 2025 1:44pmTake 1 tablet by mouth once dailyComplies with drug therapyAlendronate 70 mg WpsbtoVazhsidksdjo67GECHcefyo weekAugust 2021 12:00amSeptember 2023 10:20amon SaturdayPrednisone 5 mg TabletDiscontinued 5MGPODailyAugust 2021 12:00amMay 2023 11:49amAmlodipine 5 mg Tablet Xeznnbsmhiyh1ZJTBOjbduOidrvi 2021 12:00amJuly 2023 12:19pmHydralazine 50 mg OmskzxLbcurbdhhapg66NQIKQjsmbEiopsd 2021 12:00amApril 2023 1:02pmZolpidem 10 mg GszyanHjmzbrhigity59TTFLFezus at bedtime as needed for InsomniaAugust 2021 12:00amMarch 2023 4:02pmRosuvastatin 40 mg RdqjmqRvdugfvzeqhs45QGNYSrqqhBatsck 2021 12:00amJanuary 2024 3:34pm Metoprolol Tartrate 25 mg RfeeliKljcrcjbjdqw57QGCXSziau dailyAugust 2021 12:00amMarch 2023 4:02pmTizanidine 4 mg zuywxpRxnbdanpynqt3KRYIPtrnm at bedtime as needed for muscle cmbtqngipk815Utqv 2023 12:00amOctober 2024 11:50amPrednisone 5 mg ohmnrlElhlmowokebk4OAHBTdfst285Sifm 2023 11:07amJuly 2023 12:19pmDoxycycline Hyclate 100 mg ezlqniSpppzp605KQGDDeswq ascvl074Deunecv 2023 12:00amComplies with drug therapyAmlodipine 5 mg tabletActive0.ROUTE.MSNYWUS967Ynnbalf 2024 11:47amTake 1 tablet by mouth once dailyComplies with drug therapyMetoprolol Succinate 50 mg tablet extended release 24 vdJcphlv37JGXJYwxqt971Hlvvppt 2024 12:00amComplies with drug therapyHydralazine 50 mg vjdjwgUmrdsehrxtme7ABMSTGlbwoJwk 2023 12:00am July 07, 2024 1:15pmFreeTextSi tablet with food Orally ONCE A DAY; Note: Source Status: Refill; Refills: 0; Provider: Gomez Edwards ECholecalciferol (Vitamin D3) 50 mcg (2,000 unit) mjrdultMiumke4HXQWUCudgwIfa 2023 12:00am FreeTextSi capsule Orally Once a day; Note: Source Status: Unknown; Provider: Dmitri Kingsley ( )Complies with drug therapyAcetaminophen 650 mg tablet extended fbcsiouIqmhey766XMRGDudwr 8 hoursMo2023 12:00am FreeTextSi tablets as needed Orally every 8 hrs; Note: Source Status: Unknown; Refills: 1; Provider: Gomez Taylorlistephenie with drug therapy Sertraline 50 mg nqvjywIbqimsdjrqpt76ITGDYipkz861Ofu 2023 12:00amMay 2023 10:31amPrednisone 5 mg qgcektEdbcycuiqeeg6JQTKYhylj962Xwm 2023 12:00am April 10, 2024 9:08amBupropion Hcl (Wellbutrin Xl) 150 mg tablet extended release 24 rvFqmmhsuoomgr894IERGBelmt ndzbjxx153Qecp 5th, 2024 12:00pmDecember 2023 9:45am Immunizations Immunization Event Date Not Given Reason Dose Number Yeast Fermentation Attendant Lot Number Reason(s) Given Vaccine Information Statement (VIS) Detail Administration Location COVID-19 mRNA-1273 (Moderna) December 12, 2020 COVID-19 mRNA-1273 (Moderna)January 10OVID-19 mRNA-1273 (Moderna)August 28, 2021influenza, unspecified formulationOctober neumococcal Polysacc. Vaccine, 23 valentAugust 2020 Relevant Diagnostic Tests and/or Laboratory Data Laboratory Results Test Collection Date/Time Result Date/Time Result Interpretation Reference Range Result Comment Performing Site Anti-Nuc lear Antibody Screen August 20, 2025 12:19pm August 20, 2025 12:19pm Positive Abnormal (applies to non-numeric results) . Negative <1:80 Borderline 1:80 Positive >1:80 Miscellaneous TestOctober 2024 12:19pmOctober 2024 12:19pmCOMMENT. Test Ordered: [id number] Ceron AntibodiesSmith Antibodies <0.2 AI Reference Range: 0.0-0.9Performed at: [facility] [address] [id number] Director: Cody Williamson PhD,Phone: [phone] Disease Total AntibodyOctober 2024 12:19pmOctober 2024 12:19pmNegativeNegativeLyme antibodies not detected. Reflex testing is notindicated.No laboratory evidence of infection with B. burgdorferi(Lyme disease). Negative results may occur in patientsrecently infected (less than or equal to 14 days) with B.burgdorferi. If recent infection is suspected, repeattesting on a new sample collected in 7 to 14 days isrecommended.Performed at: [address] [id number] Director: Cody Williamson PhD, Phone: [phone] FactorOct2024 12:19pmOctober 2024 12:19pm12.1 [IU]/mL<14.0 Performed at: [address] [id number] Director: Cody Williamson PhD, Phone: [phone]-Jmbkmkng Protein, QuantitativeOct2024 12:19pmOct2024 12:19pm<0.50 mg/dL <=0.50Uric AcidOct2024 12:19pmOct2024 12:19pm5.2 mg/dL 2.6-6.0Erythrocyte Sedimentation RateOct2024 12:19pmOct2024 12:19pm44 mm/hrAbove high normal<=30Basophils # (Auto)August 20, 2025 12:19pmOctober 2024 12:19pm0.0 10 3/uL0.0-0.1Anti-Nuclear Ab PCNA Pattern August 20, 2025 12:19pmOctober 2024 12:19pmTNP.Basophils (%) (Auto) August 20, 2025 12:19pmOctober 2024 12:19pm0.5 %0.2-2.0Anti-Nuclear Ab Centriole PatternOct2024 12:19pmOctober 2024 12:19pmTNP. Eosinophils # (Auto)August 20, 2025 12:19pmOctober 2024 12:19pm0.1 10 3/uL0.0-0.7Anti-Nuclear Antibody Comment 2Oct2024 12:19pmOctober 2024 12:19pmComment.Pattern Potential Disease Association Homogeneous Systemic Lupus Erythematosus, Drug Induced Systemic Lupus Erythematosus, Chronic Autoimmune hepatitis, Juvenile Idiopathic Arthritis Speckled Sjogren Syndrome, Systemic Lupus Erythematosus, Subacute Cutaneous Lupus, Lupus, Congenital Heart Block, Mixed Connective Tissue Disease, Scleroderma-diffuse, Scleroderma-AutoimmuneMyositis Overlap Syndrome, Systemic Lupus Grrvdappyqrbj-Rzxheltlbho-Alwqjgnujd Myositis Overlap Syndrome, Systemic Autoimmune Rheumatic Disease, Undifferentiated Connective Tissue Disease Nucleolar Systemic Sclerosis, Scleroderma-AutoimmuneMyositis Overlap Syndrome, Sjogren Syndrome, Raynaud phenomenon, Pulmonary Arterial Hypertension, Systemic Autoimmune Rheumatic Disease, Cancer Centromere Scleroderma-CREST, Limited Cutaneous SSc, Raynaud's Phenomenon, Primary Biliary Cholang itis Nuclear Dot Primary Biliary Cholangitis Nuclear Primary Biliary Cholangitis, AutoimmuneMembrane Hepatitis/Liver disease, Systemic Autoimmune Rheumatic Disease, Autoimmune Cytopenias, Linear Scleroderma, Antiphospholipid Syndrome Performed at: [address] [id number] Director: Cody Williamson PhD, Phone: [phone] (%) (Auto)August 20, 2025 12:19pm August 20, 2025 12:19pm1.3 %0.9-7.0Anti-Nuclear Ab Homogeneous PatternOct2024 12:19pmOctober 2024 12:19pm1:640Abnormal (applies to non- numeric results).ICAP nomenclature: AC-1HematocritOct2024 12:19pm August 20, 2025 12:19pm41.1 %36.0-48.0Anti-Nuclear Ab Nucleolar Pattern August 20, 2025 12:19pmOctober 2024 12:19pmTNP.HemoglobinOct2024 12:19pmOctober 2024 12:19pm13.4 g/dL12.0-16.0Anti-Nuclear Ab Speckled PatternOct2024 12:19pmOctober 2024 12:19pmTNP.Immature Granulocyte # (Auto)August 20, 2025 12:19pmOctober 2024 12:19pm0.02 10 3/uL0.00-0.03Anti-Nuclear Ab Centromere PatternOct2024 12:19pmOctober 2024 12:19pmTNP.Immature Granulocyte % (Auto)August 20, 2025 12:19pm August 20, 2025 12:19pm0.2 %0.0-0.5ANA Spindle Apparatus PatternOct2024 12:19pmOctober 2024 12:19pmTNP.Lymphocytes # (Auto)August 20, 2025 12:19pmOctober 2024 12:19pm1.4 10 3/uL1.2-3.8ANA Nuclear Membrane PatternOct2024 12:19pmOctober 2024 12:19pmTNP.Lymphocytes (%) (Auto)August 20, 2025 12:19pmOct2024 12:19pm16.4 %Below low normal 20.5-60.0Anti-Nuclear Ab Midbody PatternOct2024 12:19pmOct2024 12:19pmTNP.Mean Corpuscular HemoglobinOctober 2024 12:19pmOct2024 12:19pm30.1 pg26.7-34.0Anti-Nuclear Ab Nuclear Dot PatternOct2024 12:19pmOct2024 12:19pmTNP.Mean Corpuscular Hemoglobin ConcentOct2024 12:19pmOct2024 12:19pm32.6 g/dL29.9-35.2 Mean Corpuscular VolumeOct2024 12:19pmOct2024 12:19pm92.4 fL81.0-99.0Monocytes # (Auto)August 20, 2025 12:19pmOctober 2024 12:19pm0.7 10 3/uL0.3-0.8Monocytes (%) (Auto)August 20, 2025 12:19pmOct2024 12:19pm8.4 %1.7-12.0Mean Platelet VolumeOct2024 12:19pm August 20, 2025 12:19pm10.2 fL9.5-13.5Neutrophils # (Auto)August 20, 2025 12:19pmOctober 2024 12:19pm6.1 10 3/uL1.4-6.5Neutrophils (%) (Auto)August 20, 2025 12:19pmOct2024 12:19pm73.2 %43.0-75.0Platelet Count August 20, 2025 12:19pmOct2024 12:28zz073 10 3/hP079-170Bjw Blood CountOct2024 12:19pmOct2024 12:19pm4.45 10 6/uL4.20-5.40 Red Cell Distribution WidthOcthealthsouth lakeview rehabilitation hospital 2024 12:19pmOcthealthsouth lakeview [facility] hospital 2024 12:19pm 14.0 %11.0-15.0Corrected White Blood CountOcthealthsouth lakeview rehabilitation hospital 2024 12:19pmOcthealthsouth lakeview rehabilitation hospital 2024 12:19pm8.3 10 3/uL4.0-11.0 Vital Signs Vital Reading Result Reference Range Collection Date/Time Height 66 [in_i] August 25, 2025 11:23mzJfxkhz58.82 kgOcthealthsouth lakeview rehabilitation hospital 2024 11:07amHeart Rate55 /ggo95-360Xweuncy 2024 11:21amBP Ysowvmlv653 mm[Hg]100-140Octhealthsouth lakeview [facility] 2024 11:21amBP Yxbyxjycc74 mm[Hg]60-100Octhealthsouth lakeview [facility] 2024 11:21amBMI (Body Mass Index)30.2 kg/h9Ycaiyct 2024 11:07am Advance Directives Advance Directive Response Recorded Date/ Time Advance Directives No June 12 11:20am Insurance Providers Guarantor Uzma Ramirez Address [address] [place] [address]S[employer]yk[employer] Info.Home Phone: Payer Group Member ID Coverage Type Subscriber Relationship to Subscriber Effective Date Expiration Date MMO Retired Id: [id number] J Sabo Id: [id number] [address] [place] [address] Home Phone: Email: [email or web address] [email or web address] J Sabo Id: [id number] [address] [place] [address] Home Phone: Email: [email or web address] Claims [id number] J Sabo Id: [id number] [address] [place] [address] Home Phone: Email: [email or web address] Encounters Encounter Location(s) Arrival/Admit Date Discharge/Departure Date Discharge/Departure Disposition Provider(s) Non-patient / Non-visit -[facility] ctober 2024 12:19pm Grace Dyer , MDDeparted Physician/[facility]:04amOctober 2024 12:58pmDischarged to home care or self care (routine discharge)Grace Dyer MD
--- OUTSIDE RECORDS SUMMARY | 2025-08-27 11:09 | XMS_ITS | Clinical Summary ---
Author Organization [employer] Address [facility] [id number] [address] [place] [address] Care Team Providers Care Speed Winder Name Role Phone Grace Dyer MD Primary Care Provider [phone] Allergies Active AllergyReactionsCriticalityNoted DateCommentsFentanylOther (See Comments) High02/15/2021 Leg Weakness TfvblhvbsvzLevkYxg67/27/2018Oxycodone-AcetaminophenGI Ksitexvotxs03/06/2005 PabbqmqofbvFeamTxz06/15/2021ulfa ZtjuIdyjVzu49/14/2012 Medications MedicationSigDispense QuantityRefillsLast FilledStart DateEnd DateStatus multivitamin (THERAGRAN) tablet Take 1 tablet by mouth in the morning.10/09/2005Active ezetimibe-simvastatin (VYTORIN) 10-40 mg per tablet Take 1 tablet by mouth nightly.08/23/2006ctive zolpidem (AMBIEN) 10 mg tablet nightly as needed.Active rosuvastatin (CRESTOR) 40 mg tablet Take 1 tablet (40 mg total) by mouth in the morning.Active metoprolol tartrate (LOPRESSOR) 25 mg tablet 1 tablet (25 mg total) in the morning and 1 tablet (25 mg total) before bedtime. Active hydrALAZINE (APRESOLINE) 50 mg tablet Take 1 tablet (50 mg total) by mouth in the morning.Active amLODIPine (NORVASC) 5 mg tablet Take 1 tablet (5 mg total) by mouth in the morning.Active cholecalciferol, vitamin D3, (VITAMIN D3 ORAL) daily.Active alendronate (FOSAMAX) 70 mg tablet Take 1 tablet (70 mg total) by mouth every 7 days.Active predniSONE (DELTASONE) 5 mg tablet Take 1 tablet (5 mg total) by mouth in the morning.08/21/2022ctive coenzyme Q10 200 mg capsule Take 200 mg by mouth in the morning.Active lidocaine (LIDODERM) 5 % Place 1 patch on the skin daily as needed for pain (pain) for up to 15 doses. Remove & Discard patch within 12 hours or as directed by 15 patch 07/21/2023ctive sod sulf-pot chloride-mag sulf 1.479-0.188- 0.225 gram tablet Indications:History of colon polypsPlease see instructional sheet given by physicians office. 24 tablet 4Active Active Problems ProblemNoted DateDiagnosed DateRight knee pain06/24/2023seudopolyposis of colon, unspecified complication status, unspecified part of colon06/24/2023 Family History Medical HistoryRelationNameCommentsHypertensionFatherHypertensionMotherRelation NameStatusCommentsFatherDeceasedMotherDeceased Social History Tobacco UseTypesPacks/DayYears UsedDateSmoking Tobacco: FormerCigarettes Smokeless Tobacco: Never Tobacco Cessation:Counseling Given: Not Answered Comments:Tried cigarettes when 17 years old Alcohol UseStandard Drinks/WeekCommentsYes0 (1 standard drink = 0.6 oz pure alcohol)rarelyChildcareAnswerDate VsbmxbxhEsaqjvleeRpecfnd75/12/2019Employment AnswerDate NzhijlhyHnutbddlygOqierrz33/12/2019Hunger ScreeningAnswerDate RecordedWithin the past 12 months we worried whether our food would run out before we got money to buy more.Never True09/16/2024Within the past 12 months the food we bought just didn't last and we didn't have money to get more.Never True4Purpose - LifeAnswerDate RecordedPurpose and direction in life Jzvxgfm24/11/2021CommentsNoSex and Gender InformationValueDate Recorded Sex Assigned at BirthNot on fileLegal QsdYpblfd40/06/2015 12:11 PM EDTGender IdentityNot on fileSexual OrientationNot on file Last Filed Vital Signs Vital SignReadingTime TakenCommentsBlood Pmxasvof367/7510 9:22 AM EDT Qaema827909/02/2024 9:22 AM HNREdpatjcshdu98.1 ??C (98.7 ??F)07/21/2023 12:39 PM EDTRespiratory Yemr468007/21/2023 1:16 PM EDTOxygen Okbsreobfx54%07/21/2023 1:16 PM EDTInhaled Oxygen Concentration--Vxmifl07.7 kg (186 lb 11.2 oz)09/16/2024 10:42 AM MPLMlwowe956.2 cm (5' 7 )09/02/2024 9:22 AM EDTBody Mass Index29.24 09/02/2024 9:22 AM EDT Plan of Treatment Health MaintenanceDue DateLast DoneCommentsDepression Qfidqrqjv74/18/1968Adult BMI Follow Up Plan1973DTaP,Tdap and Td Vaccines (1 - Tdap)1974Zoster (Shingles) Vaccine (1 of 2)2005Fall Risk Xvvlzmtda46/18/2021Colonoscopy /OVID-19 Vaccine ( season)/, 08/28/2021, 01/10/2021, Additional history existsInfluenza Btamife5007/05/2025 08/21/2021, 08/04/2019, 08/04/2018, Additional history existsAdult BMI Screening /Tobacco Bmveqzsqc64 Goals GoalPatient Goal TypeAssociated ProblemsRecent ProgressPatient-Stated?Author Home with [facility] Swapna Lagunas LSW Note: Evaluation of progress towards goal: Home with family support and [facility] PT services Medical Devices ImplantedTypeAreaManufacturerDevice IdentifierShelf Expiration DateModel / Serial / LotCement Bn Bio 40gm Rpl [id number] - Sn/A - [id number] Implanted:Qty: 1 on 06/25/2023 by Arik Adrian Jr., [facility]: KneeZimmer [id number] / N/A / [id number] Bn Bio 40gm Rpl [id number] - Sn/A - [id number] Implanted:Qty: 1 on 06/25/2023 by Arik Adrian Jr., [facility]Right: KneeZimmer [id number] / N/A / [id number] Artc 3-4 E-F 10mm Kn Fx Brng Prlng Nxgn Lpsflx Strl Lpsflx Rpl [id number] + [id number] - Sn/A - [id number] Implanted:Qty: 1 on 06/25/2023 by Arik Adrian Jr., DO at [facility] ImplantRight: KneeZimmer Biomet [id number] / N/A / [id number] Fem E Kn Rt Lpsflx Gndr Melissa? Nxgn Cocr Rpl [id number] - Sn/A - [id number] Implanted:Qty: 1 on 06/25/2023 by Arik Adrian Jr., DO at [facility] ImplantRight: KneeZimmer Biomet [id number]/22/907133-3117-472-62 / N/A / [id number] Ptlr 32mm Persona Alply Kn Strl Lf - Sn/A - [id number] Implanted:Qty: 1 on 06/25/2023 by Arik Adrian Jr., DO at [facility] ImplantRight: KneeZimmer Wjtadc5802/24/2028 [id number] / N/A / [id number] Tib 72a46eg Nxgn Kn Cmnt Mdlr Stm Prect 4 Tiv Pmma Rpl [id number] + [id number] - Sn/A - [id number] Implanted:Qty: 1 on 06/25/2023 by [facility] Jr[facility] KneeZimmer [id number] 17-0905-750-02 / N/A / [id number]ycfpwUvwsor IdentifierShelf Expiration DateModel / Serial / LotScrew Gd 48mm Qd-Spr Hex Hd Mis Strl - [id number] - [id number] Explanted:Qty: 1 on 06/25/2023 [facility] KneeZier [id number] / / [id number] Gd 48mm Qd-Spr Hex Hd Mis Strl - [id number] - [id number] Explanted:Qty: 1 on 06/25/2023 by Arik Adrian Jr., DO [facility]: KneeZimmer [id number] / / [id number] Bn 35mm 6.5mm St Hip Actb Trlg Strl Rpl [id number]+32 - [id number] - [id number] Explanted:Qty: 1 on 06/25/2023 by Arik Adrian Jr., DO [facility]: KneeZier [id number] / [id number] / [id number] Bn 35mm 6.5mm St Hip Actb Trlg Strl Rpl [id number]+32 - [id number] - [id number] Explanted:Qty: 1 on 06/25/2023 by Arik Adrian Jr., DO [facility]: KneeJahmmtricia [id number] / [id number] / [id number] Procedures Procedure NamePriorityDate/TimeAssociated DiagnosisCommentsCOLONOSCOPYRoutine 02/05/2024 History of colon polyps from Last 3 Months or Most Recently Relevant to Health Maintenance Results * Colonoscopy (02/05/2024) Narrative Authorizing ProviderResult TypeResult StatusJefarida Bean CIRCULATION CLERK-[facility]OSPITALGI PROCEDURE ORDERABLESFinal ResultPerforming OrganizationAddressCity/State/ZIP CodePhone Number MANUALLY TRANSCRIBED RESULTS from Last 3 Months or Most Recently Relevant to Health Maintenance Insurance Advance Directives * Full Code (Latest Code Status on File) Date ActivatedDate InactivatedComments06/24/2023 8:52 PM06/26/2023 3:54 PM Care Teams Team MemberRelationshipSpecialtyStart DateEnd Date Grace Dyer MD [address] [id number] [facility] - General04/30/18
--- OUTSIDE RECORDS SUMMARY | 2025-08-27 11:09 | XMS_ITS | Encounter Summary ---
Author Organization [facility] Address [address] [place] [address] Care Team Providers Care Supervisor Wood Room Name Role Phone Grace Dyer MD Primary Care Provider [phone] Britni Parry DO Unavailable [phone] Encounter Details DateTypeDepartmentCare Team (Latest Contact Info)Kvbwaectbvv04/17/2025linisync Result Encounter [facility] External Department Unsolicited Balta Milton PA [address] [place] [address] Social History Tobacco UseTypesPacks/DayYears UsedDateSmoking Tobacco: NeverSmokeless Tobacco: NeverAlcohol UseStandard Drinks/WeekCommentsNot Currently0 (1 standard drink = 0.6 oz pure alcohol)CommentsUnknownSex and Gender InformationValueDate RecordedSex Assigned at BirthNot on fileLegal NjdQuiiaz00/15/2023 8:13 PM EDT Gender IdentityNot on fileSexual OrientationNot on filedocumented as of this encounter Plan of Treatment DateTypeDepartmentCare Team (Latest Contact Info)Xqdfeonwren77/31/2025 10:45 AM EDTOffice Visit [facility] [address] [place] [address] Balta Milton PA [address] [place] [address] documented as of this encounter Procedures Procedure NamePriorityDate/TimeAssociated DiagnosisCommentsANTINUCLEAR ANTIBODIES, PWCUttddxw75/17/2025 12:19 PM EDT LYME DISEASE SEROLOGY W/ODGZLXMprgshy16/17/2025 12:19 PM EDT [facility] RHEUMATOID WYVSBBNmmhywa35/17/2025 12:19 PM EDT ALL URIC WYYRNisprko92/17/2025 12:19 PM EDT ALL SED DCCBTneztio52/17/2025 12:19 PM EDT ALL MISCELLANEOUS GNMPTwsrvyd41/17/2025 12:19 PM EDT ALL MISCELLANEOUS UUYVUwxjlhy40/17/2025 12:19 PM EDT ALL CBC WITH AUTO UUFIAvsvlga69/17/2025 12:19 PM EDT ALL C REACTIVE VNSYGOHKfzbrvw92/17/2025 12:19 PM EDT documented in this encounter Results * (ABNORMAL) ANTINUCLEAR ANTIBODIES, IFA (08/20/2025 12:19 PM EDT)ComponentValue Ref RangeTest MethodAnalysis TimePerformed AtPathologist SignatureANTINUCLEAR ANTIBODIES, IFAPositive(A).TBHComment: Negative <1:80 ? Borderline ??1:80 Positive >1:80 HOMOGENEOUS PATTERN1:640(A).TBHComment:ICAP nomenclature: AC-1NUCLEOLAR PATTERN TNP.TBHSPECKLED PATTERNTNP.TBHCENTROMERE PATTERNTNP.TBHSPINDLE APPARATUS PATTERN TNP.TBHNUCLEAR MEMBRANE PATTERNTNP.TBHMIDBODY PATTERNTNP.TBHNUCLEAR DOT PATTERN TNP.TBHPCNA PATTERNTNP.TBHCENTRIOLE PATTERNTNP.TBHNOTE:Comment.TBHComment: Pattern ?Potential Disease Association ?? Homogeneous ?Systemic Lupus Erythematosus, Drug Induced ? Systemic Lupus Erythematosus, Chronic ? Autoimmune hepatitis, Juvenile Idiopathic ? Arthritis ?? Speckled ? Sjogren Syndrome, Systemic Lupus ? Erythematosus, Subacute Cutaneous Lupus, ? Lupus, Congenital Heart Block, ? Mixed Connective Tissue Disease, ? Scleroderma-diffuse, Scleroderma-Autoimmune ? Myositis Overlap Syndrome, Systemic Lupus ? Liddiybqoqxmp-Aygutprbkpw-Kzbqqzatdd ? Myositis Overlap Syndrome, Systemic ? Autoimmune Rheumatic Disease, ? Undifferentiated Connective Tissue Disease ?? Nucleolar ?Systemic Sclerosis, Scleroderma-Autoimmune ? Myositis Overlap Syndrome, Sjogren ? Syndrome, Raynaud phenomenon, Pulmonary ? Arterial Hypertension, Systemic Autoimmune ? Rheumatic Disease, Cancer ?? Centromere ? Scleroderma-CREST, Limited Cutaneous SSc, ? Raynaud's Phenomenon, Primary Biliary ? Cholangitis ?? Nuclear Dot ?Primary Biliary Cholangitis ?? Nuclear ?Primary Biliary Cholangitis, Autoimmune Membrane ? Hepatitis/Liver disease, Systemic Autoimmune ? Rheumatic Disease, Autoimmune Cytopenias, ? Linear Scleroderma, Antiphospholipid Syndrome ?? Performed at: ??[facility] - [facility] [address], [place], [place] ??[id number] Felt Finisher: Cody Williamson PhD, Phone: ??[phone] Specimen (Source)Anatomical Location / LateralityCollection Method / Volume Collection TimeReceived Time08/20/2025 12:19 PM EDT1 12:41 PM EDT Narrative CLINISYNC - 08/24/2025 6:09 PM EDT Authorizing ProviderResult TypeResult StatusBalta Milton PALAB BLOOD ORDERABLESFinal ResultPerforming OrganizationAddBryn Mawr Hospitalty/State/ZIP CodePhone Number [facility] * ALL MISCELLANEOUS TEST (08/20/2025 12:19 PM EDT)ComponentValueRef RangeTest MethodAnalysis TimePerformed AtPathologist SignatureMISCELLANEOUS TESTCOMMENT. TBHComment: Test Ordered: [id number] Ceron Antibodies Ceron Antibodies <0.2 AI CB ?? Reference Range: 0.0-0.9 Performed at: ?? - [facility] ??[id number] Felt Finisher: Cody Williamson PhD, Phone: ??[phone] Specimen (Source)Anatomical Location / LateralityCollection Method / Volume Collection TimeReceived Time08/20/2025 12:19 PM EDT1 12:41 PM EDT Narrative CLINISYNC - 08/23/2025 4:09 PM EDT [id number] Ceron Antibodies Authorizing ProviderResult TypeResult StatusBalta Milton PACLINISYNCFinal ResultPerforming OrganizationAddressty/[facility] CodePhone Number [facility] * ALL MISCELLANEOUS TEST (08/20/2025 12:19 PM EDT)ComponentValueRef RangeTest MethodAnalysis TimePerformed AtPathologist SignatureMISCELLANEOUS TESTCOMMENT. TBHComment: Test Ordered: [id number] WASHROOM ATTENDANT Antibodies WASHROOM ATTENDANT Antibodies <0.2 AI CB ?? Reference Range: 0.0-0.9 Performed at: ??[facility] [address] ??[id number] Felt Finisher: Cody Williamson PhD, Phone: ??[phone] Specimen (Source)Anatomical Location / LateralityCollection Method / Volume Collection TimeReceived Time08/20/2025 12:19 PM EDT1 12:41 PM EDT Narrative CLINISYNC - 08/23/2025 4:09 PM EDT [id number] WASHROOM ATTENDANT Antibodies Authorizing ProviderResult TypeResult StatusMattmima Milton PACLINISYNCFinal ResultPerforming OrganizationAddressty/State/ZIP CodePhone Number [facility] * LYME DISEASE SEROLOGY W/REFLEX (08/20/2025 12:19 PM EDT)ComponentValueRef RangeTest MethodAnalysis TimePerformed AtPathologist SignatureLYME TOTAL ANTIBODY CIANegativeNegativeTBHComment: Lyme antibodies not detected. Reflex testing is not indicated. No laboratory evidence of infection with B. burgdorferi (Lyme disease). Negative results may occur in patients recently infected (less than or equal to 14 days) with B. burgdorferi. ??If recent infection is suspected, repeat testing on a new sample collected in 7 to 14 days is recommended. Performed at: ??[address] ??[id number] Felt Finisher: Cody Williamson PhD, Phone: ??[phone] Specimen (Source)Anatomical Location / LateralityCollection Method / Volume Collection TimeReceived Time08/20/2025 12:19 PM EDT1 12:41 PM EDT Narrative CLINISYNC - 08/21/2025 12:08 PM EDT Authorizing ProviderResult TypeResult StatusBalta Milton PALAB BLOOD ORDERABLESFinal ResultPerforming OrganizationAddressty/[facility]/ZIP CodePhone Number [facility] * [facility] RHEUMATOID FACTOR (08/20/2025 12:19 PM EDT)ComponentValueRef RangeTest MethodAnalysis TimePerformed AtPathologist SignatureRHEUMATOID FACTOR (RF)12.1 <14.0 IU/mLTBHComment: Performed at: ??[address] ??[id number] Felt Finisher: Cody Williamson PhD, Phone: ??[phone] Specimen (Source)Anatomical Location / LateralityCollection Method / Volume Collection TimeReceived Time08/20/2025 12:19 PM EDT1 12:41 PM EDT Narrative CLINISYNC - 08/21/2025 10:08 AM EDT Authorizing ProviderResult TypeResult StatusBalta Milton PACLINISYNCFinal ResultPerforming OrganizationAddressty/State/ZIP CodePhone Number [facility] * ALL C REACTIVE PROTEIN (08/20/2025 12:19 PM EDT)ComponentValueRef RangeTest MethodAnalysis TimePerformed AtPathologist SignatureC REACTIVE PROTEIN<0.50 <=0.50 mg/dLTBHSpecimen (Source)Anatomical Location / LateralityCollection Method / VolumeCollection TimeReceived Time08/20/2025 12:19 PM EDT1 12:41 PM EDT Narrative CLINISYNC - 08/20/2025 1:26 PM EDT Authorizing ProviderResult TypeResult StatusBalat Milton PACLINISYNCFinal ResultPerforming OrganizationAddressCity/State/ZIP CodePhone Number [facility] * ALL URIC ACID (08/20/2025 12:19 PM EDT)ComponentValueRef RangeTest Method Analysis TimePerformed AtPathologist SignatureURIC ACID5.22.6 - 6.0 mg/dLTBH Specimen (Source)Anatomical Location / LateralityCollection Method / Volume Collection TimeReceived Time08/20/2025 12:19 PM EDT1 12:41 PM EDT Narrative CLINISYNC - 08/20/2025 1:26 PM EDT Authorizing ProviderResult TypeResult StatusBalta Milton PACLINISYNCFinal ResultPerforming OrganizationAddBryn Mawr Hospitalty/State/ZIP CodePhone Number [facility] * (ABNORMAL) ALL SED RATE (08/20/2025 12:19 PM EDT)ComponentValueRef RangeTest MethodAnalysis TimePerformed AtPathologist SignatureTBH SED RATE44(H)<=30 mm/hrTBHSpecimen (Source)Anatomical Location / LateralityCollection Method / VolumeCollection TimeReceived Time08/20/2025 12:19 PM EDT1 12:41 PM EDT Narrative CLINISYNC - 08/20/2025 1:26 PM EDT Authorizing ProviderResult TypeResult StatusBalta Milton PACLINISYNCFinal ResultPerforming OrganizationAddressty/State/ZIP CodePhone Number [facility] * (ABNORMAL) ALL CBC WITH AUTO DIFF (08/20/2025 12:19 PM EDT)ComponentValueRef RangeTest MethodAnalysis TimePerformed AtPathologist SignatureTBH WBC8.34.0 - 11.0 10 3/uLTBHTBH RBC4.454.20 - 5.40 10 6/uLTBHTBH HGB13.412.0 - 16.0 g/dLTBH TBH HCT41.136.0 - 48.0 %TBHTBH MCV92.481.0 - 99.0 fLTBHTBH MCH30.126.7 - 34.0 pgTBHTBH MCHC32.629.9 - 35.2 g/dLTBHTBH RDW14.011.0 - 15.0 %TBHTBH VUM101906 - 450 10 3/uLTBHTBH MPV10.29.5 - 13.5 fLTBHNEUTROPHILS PERCENT AUTO73.243.0 - 75.0 %TBHLYMPHOCYTES PERCENT AUTO16.4(L)20.5 - 60.0 %TBHMONOCYTES PERCENT AUTO 8.41.7 - 12.0 %TBHTBH EO %1.30.9 - 7.0 %TBHBASOPHILS PERCENT AUTO0.50.2 - 2.0 %TBHIMMATURE GRANULOCYTES PCT AUTO0.20.0 - 0.5 %TBHNEUTROPHILS ABSOLUTE AUTO 6.11.4 - 6.5 10 3/uLTBHLYMPHOCYTES ABSOLUTE AUTO1.41.2 - 3.8 10 3/uLTBH MONOCYTES ABSOLUTE AUTO0.70.3 - 0.8 10 3/uLTBHTBH EO #0.10.0 - 0.7 10 3/uLTBH BASOPHILS ABSOLUTE AUTO0.00.0 - 0.1 10 3/uLTBHIMMATURE GRANULOCYTES ABS AUTO 0.020.00 - 0.03 10 3/uLTBHSpecimen (Source)Anatomical Location / Laterality Collection Method / VolumeCollection TimeReceived Time08/20/2025 12:19 PM EDT 08/20/2025 12:41 PM EDT Narrative CLINISYNC - 08/20/2025 1:17 PM EDT Authorizing ProviderResult TypeResult StatusMatthepetrona Milton PACLINISYNCFinal ResultPerforming OrganizationAddressCity/State/ZIP CodePhone Number [facility] documented in this encounter Visit Diagnoses Not on filedocumented in this encounter Care Teams Team MemberRelationshipSpecialtyStart DateEnd Date Grace Dyer MD [address] [place] [address] PCP - GeneralFamily Medicine05/21/23 Britni Parry DO [address] [place] [address] Referring PhysicianNeurology01/14/25documented as of this encounter
--- OUTSIDE RECORDS SUMMARY | 2025-08-27 11:09 | XMS_ITS | Encounter Summary ---
Author Organization [facility] Address [address] [place] [address] Care Team Providers Care Sole Edge Inker Machine Name Role Phone Grace Dyer MD Primary Care Provider [phone] Britni Parry DO Unavailable [phone] Reason for Referral * Consultation (Routine) - AuthorizedSpecialtyDiagnoses / ProceduresReferred By ContactReferred To ContactRheumatology Diagnoses Polyarthralgia Procedures [place] [facility]OUTPATIENT [facility] 60 MINUTES Balta Milton PA [address] [place] [address] Phone: tel: fax: Balta Garcia MD [address] [facility] [address] [place] [address] Phone: tel: fax: Referral IDStatusReasonStart DateExpiration DateVisits RequestedVisits [id number] Consult and Treat / Scheduling Instructions Please call pt to schedule. Former pt, but has not followed up in years. Most recent labs at [facility] Encounter Details DateTypeDepartmentCare Team (Latest Contact Info)Rjbllkdgltl60/22/2025Telephone [facility] [address] [place] [address] Balta Milton PA [address] [place] [address] Social History Tobacco UseTypesPacks/DayYears UsedDateSmoking Tobacco: NeverSmokeless Tobacco: NeverAlcohol UseStandard Drinks/WeekCommentsNot Currently0 (1 standard drink = 0.6 oz pure alcohol)CommentsUnknownSex and Gender InformationValueDate RecordedSex Assigned at BirthNot on fileLegal VzbKfsvuc41/15/2023 8:13 PM EDT Gender IdentityNot on fileSexual OrientationNot on filedocumented as of this encounter Miscellaneous Notes * Telephone Encounter - LUIS Franklin - 08/25/2025 8:09 AM EDT Reviewed Labs: Recommend Rheumatology Referral Will call to discuss and see how symptoms did with prednisone. Called at 1:10 pm on 08/25/25: Pt notes feeling better with steroid, arm still hurts.. Would like acall later today as she is taking her [place] to the [place]. Spoke with pt about lab results: Pt verbalized understanding.. has seen Dr. Garcia in the past for rheum but hasn't followed up in years.. pt agreeable to see him given past experience documented in this encounter Plan of Treatment DateTypeDepartmentCare Team (Latest Contact Info)Qniqkseebxx36/31/2025 10:45 AM EDTOffice Visit [facility] [address] [place] [address] Balta Milton PA [address] [place] [address] NameTypePriorityAssociated DiagnosesOrder ScheduleAmbulatory referral to RheumatologyOutpatient ReferralRoutine Polyarthralgia Expected: 08/26/2025 (Approximate), Expires: 02/24/2026documented as of this encounter Visit Diagnoses Diagnosis Polyarthralgia- Primary Pain in joint, multiple sites documented in this encounter Care Teams Team MemberRelationshipSpecialtyStart DateEnd Date Grace Dyer MD [address] [place] [address] PCP - GeneralFamily Medicine05/21/23 Britni Parry DO [address] [facility] [place] [address] Referring PhysicianNeurology01/14/25documented as of this encounter
--- OUTSIDE RECORDS SUMMARY | 2025-08-27 11:09 | XMS_ITS | Clinical Summary ---
Author Organization [facility] Address [address] [place] [address] Care Team Providers Care Gold And Silver Assayer Name Role Phone Grace Dyer MD Primary Care Provider [phone] Allergies Active AllergyReactionsCriticalityNoted FhqkTurivqlcYgydipphTfypbcx96/14/2021 RndbrmefidpAycg38/15/2021Oxycodone-AcetaminophenGI Upset10/09/2005Sulfa DyneRash 09/17/20129216AnttejgpvmeBgsePkw52/27/2018 Medications MedicationSigDispense QuantityRefillsLast FilledStart DateEnd DateStatus MULTIVITAMIN TAB Take one(1) tablet daily.Active METOPROLOL TARTRATE, SHORT ACTING, 50 mg tablet 08/21/2012ctive ZOLPIDEM 10 mg Tab Take 10 mg by mouth once daily.07/18/2012ctive amLODIPine (NORVASC) 5 mg tablet Take 5 mg by mouth.02/18/2018Active hydrALAZINE (APRESOLINE) 50 mg tablet Take 50 mg by mouth.02/15/2018Active rosuvastatin (CRESTOR) 40 mg tablet 12/09/2020ctive predniSONE (DELTASONE) 5 mg tablet TAKE 2 TABLETS BY MOUTH ONCE DAILY OR QMRAZWMZ22/31/2022ctive aspirin, enteric coated (ASPIRIN, ENTERIC COATED) 81 mg EC tablet Take 81 mg by mouth once daily.Active HYDROcodone-acetaminophen (NORCO) 5-325 mg per tablet 02/13/2022ctive Active Problems ProblemNoted DateDiagnosed DateOpen wound of abdominal wall, anterior, qdaymvlouao74/28/2005Personal history of malignant neoplasm of glxpyb5708/13/2005 Malignant neoplasm of upper-outer quadrant of female breastHip joint replacement by other means Immunizations ImmunizationAdministration DatesNext DueCOVID-19 vaccine, unspecified lmetruxulqi72/09/2021,12/12/2020influenza (IIV3) vaccine, trivalent (AFLURIA, FLULAVAL, FLUVIRIN, FLUZONE)08/04/2019influenza (aIIV3) vaccine, age 65+ yr, trivalent, PF (FLUAD)08/21/2021novel influenza (M2S3-79) vaccine, PF09/10/2009 pneumococcal polysaccharide (PPV23) vaccine, 23 valent (PNEUMOVAX 23)06/12/2021 Family History Medical HistoryRelationCommentsDiabetesFatherHypertensionFatherBreast Cancer Maternal GrandmotherRelationStatusCommentsBrother 1AliveBrother 2AliveBrother 3 AliveFatherDeceasedMaternal GrandmotherMotherDeceasedSister 1AliveSister 2Alive Sister 3AliveSister 4AliveSister 5AliveSister 6Alive Social History Tobacco UseTypesPacks/DayYears UsedDateSmoking Tobacco: XcieyhNegwyznglw48 Smokeless Tobacco: NeverAlcohol UseStandard Drinks/WeekCommentsYes0 (1 standard drink = 0.6 oz pure alcohol)Area Deprivation IndexAnswerDate RecordedNational Score (1-100), lower number is lower azew258202/21/2023State Score (1-10), lower number is lower riskNot on file3Data from: https://www.neighborhoodatlas.medicine.[facility].edu/. Last address used for eiqiscaydnv[address]3CommentsNoSex and Gender Information ValueDate RecordedSex Assigned at BirthNot on fileLegal XnkSplmal56/02/2012 10:05 AM ESTGender IdentityNot on fileSexual OrientationNot on file Last Filed Vital Signs Vital SignReadingTime TakenCommentsBlood Dfoggbac288/8504 11:07 AM EDT Hjoqk9737 11:07 AM PWLBuvilaicqxs51.3 ??C (97.4 ??F)02/15/2022 11:07 AM EDTRespiratory Pwox337602/15/2022 11:07 AM EDTOxygen Hanejgkpud29%02/15/2022 11:07 AM EDTInhaled Oxygen Concentration--Rugrlb57.1 kg (192 lb)02/15/2022 11:07 AM EDTverbal per nyFmttyt608.2 cm (5' 7.01 )02/15/2022 11:07 AM EDTBody Mass Index 30.0602/15/2022 11:07 AM EDT Plan of Treatment Health MaintenanceDue DateLast DoneCommentsAnxiety Qkivottwh16/18/1974Depression Zsovgdbfe51/18/1974Hepatitis C Ohgjkxrjz30/18/1974DTaP,Tdap,Td Vaccine (1 - Tdap)1974Mammogram Ghelghmft52/18/1996CT Ekgpykrpdatb55/18/2001Cologuard (FIT-DNA)11/21/20000134Gaxbzgytcmx92/18/2001Colorectal Cancer Duqknoape38/18/2001 Fecal Occult Blood2000Lipid Vpniqvwqm08/18/7588Bpnaygtzyafxf42/18/2001 Shingrix Vaccine (1 of 2)2005Bone Density Bisgjaaen21/18/2021neumococcal Vaccine: 50+ (2 of 2 - PCV)/dvance Directive Discussion 11/04/2024Diabetes Nwgxptnvf22, 01/26/2014, 08/23/2006, Additional history existsCovid-19 Vaccine ( season)2025 08/28/2021, 01/10/2021, 12/12/2020Influenza Vaccine (#1), 08/04/2019, 09/10/2009RSV Vaccine (1 - 1-dose 75+ series)2030 Procedures Procedure NamePriorityDate/TimeAssociated DiagnosisCommentsCOMPREHENSIVE METABOLIC CAPYNWykfhom73/14/2022 11:01 AM EDT Malignant neoplasm of upper-outer quadrant of left breast in female, estrogen receptor positive (HCC) from Last 3 Months or Most Recently Relevant to Health Maintenance Results * (ABNORMAL) COMP METABOLIC PANEL (02/15/2022 11:01 AM EDT)ComponentValueRef RangeTest MethodAnalysis TimePerformed AtPathologist SignatureProtein, Total 7.16.3 - 8.0 g/dL02/15/2022 11:32 [facility] Albumin4.53.9 - 4.9 g/dL02/15/2022 11:32 AM [facility] LABCalcium, Total9.78.5 - 10.2 mg/dL02/15/2022 11:32 AM EDTW[facility] LABBilirubin, Total1.10.2 - 1.3 mg/dL02/15/2022 11:[address] LABAlkaline Qjfjmagnlqw3930 - 123 U/L 02/15/2022 11:[address] [facility] AHQUTM7438 - 35 U/L 02/15/2022 11:[address] [facility] PHAUAY502 - 38 U/L 02/15/2022 11:[address] [facility] UPPUdoaqxw800(H)74 - 99 mg/dL02/15/2022 11:[address] LABComment: The [place] Diabetes Association (ADA) provides guidance for cutoff values for fasting glucose andrandom glucose. The ADA defines fasting as no [...] Standards of Medical Care in Diabetes 2016, [place] Diabetes Association. Diabetes Care. 2016.39(Suppl 1). BUN23(H)7 - 21 mg/dL02/15/2022 11:32 AM [facility]TNOR[facility]CO[facility] Creatinine0.820.58 - 0.96 mg/dL02/15/2022 11:[address] [facility] RHHQurxmr022(L)136 - 144 mmol/L02/15/2022 11:[address] [facility] LABPotassium3.93.7 - 5.1 mmol/L02/15/2022 11:[address] [facility] HXYLbzjkfcu42172 - 105 mmol/L02/15/2022 11:32 AM EDT [facility] PCLMM58659 - 30 mmol/L02/15/2022 11:32 AM EDT [facility] LABAnion Gap99 - 18 mmol/L02/15/2022 11:32 AM [facility] LABEstimated Glomerular Filtration Rate79 >=60 mL/min/1.73m 02/15/2022 11:[address] LABComment:Estimated Glomerular Filtration Rate (eGFR) is calculated using the 2020 CKD-EPI creatinine equation. This equation utilizes serum creatinine, sex, and age as parameters. The creatinine assay has traceable calibration to isotope dilution- mass spectrometry. Refer to KDIGO guidelines for clinical interpretation. In patients with unstable renal function, e.g. those with acute kidney injury, the eGFRmay not accurately reflect actual GFR.Specimen (Source)Anatomical Location / LateralityCollection Method / VolumeCollection TimeReceived TimeBloodBLOOD SPECIMEN / UnknownVenipuncture / Ocnasor3802/15/2022 11:01 AM EDT02/15/2022 11:01 AM EDT Narrative Authorizing ProviderResult TypeResult StatusBrjordan Corbin MDLABORATORY Final ResultPerforming OrganizationAddressCity/State/ZIP CodePhone Number [facility] [address] [place] [address] from Last 3 Months or Most Recently Relevant to Health Maintenance Insurance MemberSubscriberPlan / Payer (Effective 2020-Present)Name:Uzma Ramirez Member ID:[id number] Relation to Subscriber:SelfName:Uzma Ramirez Subscriber ID:[id number] Payer ID:Not on file Group ID:Not on file Type:Medicare Address: [facility] [place] [id number] * Guarantor: Uzma Ramirez TypeRelation to PatientDate of BirthPhone Billing AddressSelf [id number] 1955 [address] [place] [address] Care Teams Team MemberRelationshipSpecialtyStart DateEnd Grace Dyer MD [address] [facility] [place] [address] PCP - GeneralFamily Medicine01/26/14
--- OUTSIDE RECORDS SUMMARY | 2025-08-27 11:09 | XMS_ITS | Encounter Summary ---
Author Organization [facility] Address [address] [place] [address] Care Team Providers Care Degree Clerk Name Role Phone Grace Dyer MD Primary Care Provider [phone] Britni Parry DO Unavailable [phone] Encounter Details DateTypeDepartmentCare Team (Latest Contact Info)Rtdbrnqydga89/17/2025Travel Social History Tobacco UseTypesPacks/DayYears UsedDateSmoking Tobacco: NeverSmokeless Tobacco: NeverAlcohol UseStandard Drinks/WeekCommentsNot Currently0 (1 standard drink = 0.6 oz pure alcohol)CommentsUnknownSex and Gender InformationValueDate RecordedSex Assigned at BirthNot on fileLegal FyuKnxxjb86/15/2023 8:13 PM EDT Gender IdentityNot on fileSexual OrientationNot on filedocumented as of this encounter Plan of Treatment DateTypeDepartmentCare Team (Latest Contact Info)Kamsfobxtfp62/31/2025 10:45 AM EDTOffice Visit [facility] [address] [place] [address] Balta Milton PA [address] [place] [address] documented as of this encounter Visit Diagnoses Not on filedocumented in this encounter Care Teams Team MemberRelationshipSpecialtyStart DateEnd Date Grace Dyer MD [address] [facility] [place] [phone] PCP - GeneralFamily Medicine05/21/23 Britni Parry DO [address] [place] [address] Referring PhysicianNeurology01/14/25documented as of this encounter
--- OUTSIDE RECORDS SUMMARY | 2025-08-27 11:09 | XMS_ITS | Clinical Summary ---
Author Organization [facility] Address [address] [place] [address] Care Team Providers Care Malt Liquors Sales Supervisor Name Role Phone Grace Dyer MD Primary Care Provider [phone] Britni Parry DO Unavailable [phone] Allergies Active AllergyReactionsCriticalityNoted DateCommentsFentanylUnknownHigh 02/15/2021 Leg Weakness Oxycodone-AcetaminophenGI dejwwtkgfmj08/06/1188IkacimtuavhUzovClo34/15/2021ulfa ZssvoyylzviDjdgHlm96/18/7664DhwjfidsseoAurbKxs52/27/2018 Medications MedicationSigDispense QuantityRefillsLast FilledStart DateEnd DateStatus aspirin (Aspirin EC Low Strength) 81 MG EC tablet 1 capsule 1 (one) time each day at the same timeActive cholecalciferol (Vitamin D3) 200 Unit tablet split tablet in the morning.Active Fosamax 70 MG tablet Active amLODIPine (Norvasc) 5 MG tablet Take 5 mg by mouth DailyActive coenzyme Q-10 200 MG capsule Take 200 mg by mouth in the morning.Active metoprolol tartrate (Lopressor) 25 MG tablet every 12 (twelve) hoursActive rosuvastatin (Crestor) 40 MG tablet 1 (one) time each day at the same timeActive hydrALAZINE (Apresoline) 50 MG tablet every 8 (eight) hoursActive doxepin (SINEquan) 10 MG capsule Indications:Primary insomnia1-2 po q hs 60 capsule 5Active cyclobenzaprine (Flexeril) 10 MG tablet Indications:Other insomnia,Other chronic painTake 1/2-1 at bedtime 30 tablet 5Active predniSONE (Deltasone) 20 MG tablet Indications:Acute right hip pain,Acute pain of left shoulder,PolyarthralgiaTake 2 tablets (40 mg) by mouth Daily for 5 days, THEN 1 tablet (20 mg) Daily for 5 days. Take withfood. 15 tablet tive predniSONE (Deltasone) 5 MG tablet Take 5 mg by mouth in the morning.Discontinued traMADol (Ultram) 50 MG tablet Indications:Acute right hip pain,Acute pain of left shoulder,PolyarthralgiaTake 1 tablet (50 mg) by mouth every 8 (eight) hours if needed for severe pain for up to 4 days 12 tablet Expired Active Problems ProblemNoted DateDiagnosed DateArtificial knee joint hknotsm6106/18/2023Internal derangement of left knee06/18/2023Malignant neoplasm of upper-outer quadrant of female ziguie1306/18/2023Osteoarthritis of knee06/18/2023Status post total left knee beouswhtklp12/15/2023Open wound of abdominal wall, anterior, complicated 10/01/2005Personal history of malignant neoplasm of xdqrmr6308/13/2005 Encounters DateTypeDepartmentCare CxwiDovbltojygi84/22/2025Telephone [facility] [address] [place] [address] Balta Milton PA 08/24/2025Results Follow-Up [facility] [address] [place] [address] Balta Milton PA ALL CBC WITH AUTO DIFF, ALL SED RATE, ALL URIC ACID, Additional followed-up results: 9:30 AM EDTAncillary Procedure [place] [address] [place] [address] 08/20/2025 9:15 AM EDTOffice Visit [place] [address] [place] [address] Balta Milton PA Acute right hip pain (Primary Dx); History of total right hip replacement; Right hip pain; Acute pain of left shoulder; Mjxdejprlaesaq64/17/2025linisync Result Encounter [facility] External Department Unsolicited Balta Milton PA 08/20/2025amboo flowsheet [facility] [address] [place] [phone] Balta Milton PA 08/20/2025Travelfrom Last 3 Months Immunizations ImmunizationAdministration DatesNext DueInfluenza, seasonal, injectable 08/04/2019Influenza, trivalent, gxdmqkqwuq98/18/2021Moderna Bivalent Booster Eaolkhyxzql01/14/2022Novel mkfaikyot-J3K2-59, preservative-free09/10/2009 Pneumococcal Polysaccharide BAMD85861345FYWS-PfE-7, Mtfgrsujikh24/09/2021, 12/12/2020 Family History Medical HistoryRelationNameCommentsHypertensionFatherEmphysemaMotherHypertension MotherRelationNameStatusCommentsBrother1 brotherDaughterAlive2 daughtersFather DeceasedMotherDeceasedMother's SisterAliveSister2 sistersSonAlive2 sons Social History Tobacco UseTypesPacks/DayYears UsedDateSmoking Tobacco: NeverSmokeless Tobacco: Never Tobacco Cessation:Counseling Given: Not Answered Alcohol UseStandard Drinks/WeekCommentsNot Currently0 (1 standard drink = 0.6 oz pure alcohol)CommentsUnknownSex and Gender InformationValueDate Recorded Sex Assigned at BirthNot on fileLegal KimHlfmgi41/15/2023 8:13 PM EDTGender IdentityNot on fileSexual OrientationNot on file Last Filed Vital Signs Vital SignReadingTime TakenCommentsBlood Cmdgqvon166/9304 11:14 AM EDT Herdp157702/16/2025 11:14 AM EDTTemperature--Respiratory Rate--Oxygen Saturation 95%01/14/2025 11:17 AM EDTInhaled Oxygen Concentration--Pyeaxl11.7 kg (189 lb) 02/16/2025 11:14 AM QZSHwzyqy445.6 cm (5' 6 )02/16/2025 11:14 AM EDTBody Mass Index30.51002/16/2025 11:14 AM EDT Plan of Treatment DateTypeDepartmentCare Team (Latest Contact Info)Lkfflebldxz61/31/2025 10:45 AM EDTOffice Visit [facility] [address] [place] [place] [address] Balta Milton PA [address] [facility] [place] [address] Procedures Procedure NamePriorityDate/TimeAssociated DiagnosisCommentsANTINUCLEAR ANTIBODIES, XMRHpuxall60/17/2025 12:19 PM EDT ALL MISCELLANEOUS GSGTRuymhrr05/17/2025 12:19 PM EDT ALL MISCELLANEOUS EUPIMxeafqc99/17/2025 12:19 PM EDT LYME DISEASE SEROLOGY W/MPEIWWHjxlglw55/17/2025 12:19 PM EDT [facility] RHEUMATOID WCNMASZeldmiw56/17/2025 12:19 PM EDT ALL C REACTIVE EUYFOROOckqbqk81/17/2025 12:19 PM EDT ALL URIC IQKEXuasxdj40/17/2025 12:19 PM EDT ALL SED SKRGKlyxqri22/17/2025 12:19 PM EDT ALL CBC WITH AUTO STGRPcwrsvr53/17/2025 12:19 PM EDT XR HIP 2 OR 3 VW FMYFXYtrtmfm14/17/2025 9:28 AM EDT Right hip pain from Last 3 Months Results * (ABNORMAL) ANTINUCLEAR ANTIBODIES, IFA (08/20/2025 [...] ? Myositis Overlap Syndrome, Systemic Lupus ? Sfsdhvdjmizbs-Tkyssomavlp-Djmrdwpqnb ? Myositis Overlap Syndrome, Systemic ? Autoimmune [...] Linear Scleroderma, Antiphospholipid Syndrome ?? Performed at: ??[address] ??[id number] Director Trade: Cody Williamson PhD, Phone: ??[phone] Specimen (Source)Anatomical Location / LateralityCollection Method / Volume Collection TimeReceived Time08/20/2025 12:19 PM EDT1 12:41 PM EDT Narrative CLINISYNC - 08/24/2025 6:09 PM EDT Authorizing ProviderResult TypeResult StatusMauniversity hospitals health system [facility] BLOOD ORDERABLESFinal ResultPerforming OrganizationAddressTrinity Health System/[facility] CodePhone Number [facility] * LYME DISEASE SEROLOGY W/REFLEX (08/20/2025 12:19 [...] to 14 days is recommended. Performed at: ??[address] ??[id number] Director Trade: Cody Williamson PhD, Phone: ??[phone] Specimen (Source)Anatomical Location / LateralityCollection Method / Volume Collection TimeReceived Time08/20/2025 12:19 PM EDT1 12:41 PM EDT Narrative CLINISYNC - 08/21/2025 12:08 PM EDT Authorizing ProviderResult TypeResult StatusMattNew England Deaconess Hospital [facility] BLOOD ORDERABLESFinal ResultPerforming OrganizationAddGeisinger St. Luke's Hospitalty/State/ZIP CodePhone Number [facility] * [facility] RHEUMATOID FACTOR (08/20/2025 12:19 PM EDT)ComponentValueRef RangeTest MethodAnalysis TimePerformed AtPathologist SignatureRHEUMATOID FACTOR (RF)12.1 <14.0 IU/mLTBHComment: Performed at: ?? - [facility] [address] ??[id number] Director Trade: Cody Williamson PhD, Phone: ??[phone] Specimen (Source)Anatomical Location / LateralityCollection Method / Volume Collection TimeReceived Time08/20/2025 12:19 PM EDT1 12:41 PM EDT Narrative CLINISYNC - 08/21/2025 10:08 AM EDT Authorizing ProviderResult TypeResult StatusBalta Milton PACLINISYNCFinal ResultPerforming OrganizationAddressCity/State/ZIP CodePhone Number [facility] * ALL URIC ACID (08/20/2025 12:19 PM EDT)ComponentValueRef RangeTest Method Analysis TimePerformed AtPathologist SignatureURIC ACID5.22.6 - 6.0 mg/dLTBH Specimen (Source)Anatomical Location / LateralityCollection Method / Volume Collection TimeReceived Time08/20/2025 12:19 PM EDT1 12:41 PM EDT Narrative CLINISYNJ - 08/20/2025 1:26 PM EDT Authorizing ProviderResult TypeResult StatusBalta Milton PACLINISYNCFinal ResultPerforming OrganizationAddressty/State/ZIP CodePhone Number [facility] * (ABNORMAL) ALL SED RATE (08/20/2025 12:19 PM EDT)ComponentValueRef RangeTest MethodAnalysis TimePerformed AtPathologist SignatureTBH SED RATE44(H)<=30 mm/hrTBHSpecimen (Source)Anatomical Location / LateralityCollection Method / VolumeCollection TimeReceived Time08/20/2025 12:19 PM EDT1 12:41 PM EDT Narrative CLINISYNC - 08/20/2025 1:26 PM EDT Authorizing ProviderResult TypeResult StatusBalta Milton PACLINISYNCFinal ResultPerforming OrganizationAddressCity/State/ZIP CodePhone Number [facility]INSELECT [facility] * ALL MISCELLANEOUS TEST (08/20/2025 12:19 PM EDT) Only the most recent of2 resultswithin the time period is included. ComponentValueRef RangeTest MethodAnalysis TimePerformed AtPathologist Signature MISCELLANEOUS TESTCOMMENT.TBHComment: Test Ordered: [id number] Ceron Antibodies Ceron Antibodies <0.2 AI CB ?? Reference Range: 0.0-0.9 Performed at: ??CB - [facility] [address] ??[id number] Director Trade: Cody Williamson PhD, Phone: ??[phone] Specimen (Source)Anatomical Location / LateralityCollection Method / Volume Collection TimeReceived Time08/20/2025 12:19 PM EDT1 12:41 PM EDT Narrative CLINISYNC - 08/23/2025 4:09 PM EDT [id number] Ceron Antibodies Authorizing ProviderResult TypeResult StatusMatthew Faizan Milton PACLINISYNCFinal ResultPerforming OrganizationAddressCity/State/ZIP CodePhone Number [facility]IN[facility] * (ABNORMAL) ALL CBC WITH AUTO DIFF (08/20/2025 12:19 PM EDT)ComponentValueRef RangeTest MethodAnalysis TimePerformed AtPathologist SignatureTBH WBC8.34.0 - 11.0 10 3/uLTBHTBH RBC4.454.20 - 5.40 10 6/uLTBHTBH HGB13.412.0 - 16.0 g/dLTBH TBH HCT41.136.0 - 48.0 %TBHTBH MCV92.481.0 - 99.0 fLTBHTBH MCH30.126.7 - 34.0 pgTBHTBH MCHC32.629.9 - 35.2 g/dLTBHTBH RDW14.011.0 - 15.0 %TBHTBH TOG667291 - 450 10 3/uLTBHTBH MPV10.29.5 - 13.5 [...] PM EDT 08/20/2025 12:41 PM EDT Narrative CLINISYNJ - 08/20/2025 1:17 PM EDT Authorizing ProviderResult TypeResult StatusMaclifton Milton PACLINISYNCFinal ResultPerforming OrganizationAddressCity/State/ZIP CodePhone Number [facility] * ALL C REACTIVE PROTEIN (08/20/2025 12:19 PM EDT)ComponentValueRef RangeTest MethodAnalysis TimePerformed AtPathologist SignatureC REACTIVE PROTEIN<0.50 <=0.50 mg/dLTBHSpecimen (Source)Anatomical Location / LateralityCollection Method / VolumeCollection TimeReceived Time08/20/2025 12:19 PM EDT1 12:41 PM EDT Narrative CLINISYNC - 08/20/2025 1:26 PM EDT Authorizing ProviderResult TypeResult StatusMaclifton Milton PACLINISYNCFinal ResultPerforming OrganizationAddressCity/State/ZIP CodePhone Number [facility] * XR hip right 2 or 3 [...] Faizan Milton PAIMG XR PROCEDURES Final Result from Last 3 Months Insurance Care Teams Team MemberRelationshipSpecialtyStart DateEnd Date Grace Dyer MD [address] [facility] [place] [address] PCP - GeneralFamily Medicine05/21/23 Britni Parry DO [address] [place] [address] Referring PhysicianNeurology01/14/25
--- OUTSIDE RECORDS SUMMARY | 2025-08-27 11:09 | XMS_ITS | Encounter Summary ---
Author Organization [facility] Address [address] [place] [address] Care Team Providers Care Monkey Breeder Name Role Phone Grace Dyer MD Primary Care Provider [phone] Britni Parry DO Unavailable [phone] Encounter Details DateTypeDepartmentCare Team (Latest Contact Info)Nsgtgdajeac26/17/2025amboo flowsheet [facility] [address] [place] [address] Balta Milton PA [address] [place] [address] Social History Tobacco UseTypesPacks/DayYears UsedDateSmoking Tobacco: NeverSmokeless Tobacco: NeverAlcohol UseStandard Drinks/WeekCommentsNot Currently0 (1 standard drink = 0.6 oz pure alcohol)CommentsUnknownSex and Gender InformationValueDate RecordedSex Assigned at BirthNot on fileLegal FhzDlzwax71/15/2023 8:13 PM EDT Gender IdentityNot on fileSexual OrientationNot on filedocumented as of this encounter Plan of Treatment DateTypeDepartmentCare Team (Latest Contact Info)Zyzkjlndkze50/31/2025 10:45 AM EDTOffice Visit [facility] [address] [place] [address] Balta Milton PA [address] [place] [address] documented as of this encounter Visit Diagnoses Not on filedocumented in this encounter Care Teams Team MemberRelationshipSpecialtyStart DateEnd Date Grace Dyer MD [address] [place] [address] PCP - GeneralFamily Medicine05/21/23 Britni Parry DO [address] [place] [address] Referring PhysicianNeurology01/14/25documented as of this encounter
--- OUTSIDE RECORDS SUMMARY | 2025-08-27 11:09 | XMS_ITS | Encounter Summary ---
Author Organization [facility] Address [address] [place] [address] Care Team Providers Care Wordpress Developer Name Role Phone Grace Dyer MD Primary Care Provider [phone] Britni Parry DO Unavailable [phone] Encounter Details DateTypeDepartmentCare Team (Latest Contact Info)Pyzdgdgswxk33/21/2025Results Follow-Up [facility] [address] [place] [address] Balta Milton PA [address] [place] [address] ALL CBC WITH AUTO DIFF, ALL SED RATE, ALL URIC ACID, Additional followed-up results: 6 Social History Tobacco UseTypesPacks/DayYears UsedDateSmoking Tobacco: NeverSmokeless Tobacco: NeverAlcohol UseStandard Drinks/WeekCommentsNot Currently0 (1 standard drink = 0.6 oz pure alcohol)CommentsUnknownSex and Gender InformationValueDate RecordedSex Assigned at BirthNot on fileLegal HjuHnlmaf33/15/2023 8:13 PM EDT Gender IdentityNot on fileSexual OrientationNot on filedocumented as of this encounter Plan of Treatment DateTypeDepartmentCare Team (Latest Contact Info)Imqecncvujn96/31/2025 10:[address] [facility] [address] [address] Balta Milton PA [address] [place] [address] documented as of this encounter Visit Diagnoses Not on filedocumented in this encounter Care Teams Team MemberRelationshipSpecialtyStart DateEnd Date Grace Dyer MD [address] [place] [address] PCP - GeneralFamily Medicine05/21/23 Britni Parry DO [address] [place] [address] Referring PhysicianNeurology01/14/25documented as of this encounter
--- OUTSIDE RECORDS SUMMARY | 2025-08-27 11:09 | XMS_ITS | Clinical Summary ---
Author Organization [facility] Address [address] [place] [address] Phone Care Team Providers Care Insurance Solicitor Name Role Phone Grace Dyer MD Primary Care Provider [phone] Allergies Active AllergyReactionsCriticalityNoted DateCommentsOxycodone-Acetaminophen Dmfxzuj1206/26/20230113VguwstiyeitKiyqqok87/23/4014YzqqumYvplfsd88/23/2023Terbinafine Qwnyxxc0906/26/2023 Medications MedicationSigDispense QuantityRefillsLast FilledStart DateEnd DateStatus alendronate (Fosamax) 70 mg tablet Take 1 tablet (70 mg) by mouth 1 (one) time per week.02/16/2022ctive amLODIPine (Norvasc) 5 mg tablet Take 1 tablet (5 mg) by mouth once daily.05/31/2022ctive hydrALAZINE (Apresoline) 50 mg tablet Take 1 tablet (50 mg) by mouth once daily.05/31/2022ctive metoprolol tartrate (Lopressor) 25 mg tablet Take 1 tablet (25 mg) by mouth 2 times a day.04/27/2022ctive predniSONE (Deltasone) 5 mg tablet Take 2 tablets (10 mg) by mouth once daily. OR NGDTDSSC99/31/2022ctive rosuvastatin (Crestor) 40 mg tablet Take 1 tablet (40 mg) by mouth once daily.05/31/2022ctive zolpidem (Ambien) 10 mg tablet Take 1 tablet (10 mg) by mouth as needed at bedtime.05/31/2022ctive Active Problems ProblemNoted DateDiagnosed DateEssential bqkuelvocadw77/23/2023Hyperlipidemia, pmcuubwenss91/23/2023Sinus jjilcozeasp61/23/8338Zlswyclfjh06/23/2023 Immunizations ImmunizationAdministration DatesNext DueInfluenza, Mcsgqifakls91/01/2019, 08/04/2018,08/04/2017,09/10/2009Influenza, trivalent, xzaaviairn33/18/2021 Moderna COVID-19 vaccine, bivalent, blue cap/robertson label *Check age/dose* 10/17/2022Novel roduujqnc-Y3R7-06, preservative-free09/10/2009Pneumococcal polysaccharide vaccine, 23-valent, age 2 years and older (PNEUMOVAX 23) 06/12/2021 Family History Medical HistoryRelationNameCommentsHypertensionBrotherHypertensionFather HypertensionSisterMYCARDIAL INFARCTIONSisterACUTEOtherSisterH/O HEART ARTERY STENTRelationNameStatusCommentsBrotherFatherSister Social History Tobacco UseTypesPacks/DayYears UsedDateSmoking Tobacco: Never Assessed Tobacco Cessation:Counseling Given: Not Answered CommentsUnknownSex and Gender InformationValueDate RecordedSex Assigned at BirthNot on fileLegal ApfRpcvwf29/26/2022 8:46 PM ESTGender IdentityNot on fileSexual OrientationNot on file Last Filed Vital Signs Vital SignReadingTime TakenCommentsBlood Dmrjdpyz643/7809 1:49 PM EDT Vmhbj6872 1:49 PM EDTTemperature--Respiratory Rate--Oxygen Saturation-- Inhaled Oxygen Concentration--Weight--Tjbgmg685.6 cm (5' 6 )07/20/2022 1:49 PM EDTBody Mass Index-- Plan of Treatment Health MaintenanceDue DateLast DoneCommentsCT Obsanhdasebn34/18/1956Colonoscopy 1955olorectal Cancer Catspzouz54/18/1956FIT-DNA (Cologuard)1955FIT 1955Lipid Panel1955 5228Kmksguhsxmham97/18/1956Hepatitis C Screening 1973DTaP/Tdap/Td Vaccines (1 - Tdap)1977Zoster Vaccines (1 of 2) 01/18/2006MMR Vaccines (1 of 1 - Standard series)10/08/2009Pneumococcal Vaccine (2 of 2 - PCV)/one Density Scan/Medicare Annual Wellness Visit (AWV)/, 06/12/2021, 06/12/2021Influenza Vaccine (#1)/, 08/04/2019, 08/04/2018, Additional history existsCOVID-19 Vaccine ( season)/, 08/28/2021, 01/10/2021, Additional history existsRSV High Risk: (Elderly (60+) or Population) (1 - 1-dose 75+ series)2030HIB VaccinesAged OutNo longer eligible based on patient's age to complete this topicHPV VaccinesAged OutNo longer eligible based on patient's age to complete this topicHepatitis A VaccinesAged OutNo longer eligible based on patient's age to complete this topic Hepatitis B VaccinesAged OutNo longer eligible based on patient's age to complete this topicIPV VaccinesAged OutNo longer eligible based on patient's age to complete this topicMeningococcal VaccineAged OutNo longer eligible based on patient's age to complete this topicRotavirus VaccinesAged OutNo longer eligible based on patient's age to complete this topic Insurance * Guarantor: Uzma Ramirez TypeRelation to PatientDate of BirthPhone Billing AddressPersonal/XylvdlJosp99/18/1956 [facility] [place] [address] Care Teams Team MemberRelationshipSpecialtyStart DateEnd Date Grace Dyer MD [address] [place], [place] [id number] [facility]11/04/20
--- OUTSIDE RECORDS SUMMARY | 2025-08-27 11:14 | XMS_ITS | CCD ---
Author Organization [facility] Care Team Providers Care [place] Chalker Name Role Phone Florinda Flowers Primary Care Provider [phone] MD Florinda Flowers Primary Care Provider ROSA Milton Attending Provider MD Ascencion Ortiz Attending Provider [phone] Teetee Rizvi Unavailable MD Florinda Flowers Primary Care Provider MD Teetee Rizvi Attending Provider Florinda Flowers Unavailable Unavailable Unavailable Dr. Florinda Flowers Primary Care Unav ailable Perez, Dr. Lei Velázquez Referring Britt vailable Perez, Dr. Lei Velázquez Attending Britt vailable Elizabeth Waytt Unavailable Florinda Flowers Unavailable DR RYAN ORTIZ Attending Unavailable ANEGL, DR DAVIS Admitting Unavailable LIONEL, DR FLORINDA Arriola Primary Care Unavailable ANGEL, DR DAVIS Consulting Unavailable YENY, DR CRUZ Attending Unavailable YENY, DR CRUZ Admitting Unavailable LIONEL, DR FOLRINDA Arriola Primary Care Unavailable YENY, DR CRUZ [...] ., DR REHANA Arriola Attending Unavaila ble GRILLIReema ., DR REHANA Arriola Consulting Unavaila ble GRILLIReema ., DR REHANA Arriola Attending Unavaila ble FLOWERS, DR FLORINDA Arriola Primary Care Unavailable GRILLIReema ., DR REHANA Arriola Admitting Unavaila ble ISABEL RAMIREZ Consulting Unavailable FILUTZMARIA L Arriola Consulting Unavailable PEREZ, DR LEI Nicole Attending Unavailable PEREZ, DR LEI Nicole Admitting Unavailable FLOWERS, DR FLORINDA Arriola Primary Care Unavailable PEREZ, [...] Unavailable Florinda Flowers MD Primary Care Provider Mc Parry DO Unavailable Florinda Flowers MD Primary Care Provider Florinda Flowers MD Primary Care Provider Uzma Joel APRN Attending Provider Florinda Flowers MD Primary Care Provider Mc Parry DO Unavailable JR. JESSICA, DELL Curry Attending Unavailtianna ADRIAN JR., DELL Curry Referring Unavaila MC Santoyo Attending Unavailable FLORINDA FLOWERS Referring Unavailable MIGEL DUNLAP Attending Unavailable MC PARRY Referring Unavailable MC PARRY Referring Unavailable MIGEL DUNLAP Attending Unavailable UZMA JOEL Attending Unavailable RYAN MILTON Attending Unavailable RYAN MILTON Referring Unavailable Florinda Flowers MD Primary Care Provider Florinda Flowers MD Attending Provider Allergies Allergy ClassificationReported Allergen(s)Allergy TypeDate of OnsetReaction(s) Facility (20 sources)Acetaminophen / oxyCODONE; Translations: [Percocet TABS]Drug Allergy 78-33-2145YA Upset, GI Disturbance, GI intoleranceK[facility] (14 sources)Sulfa Dyne; Translations: [SULFA DYNE]Drug Kyqwket99-08-2479Pybf [facility] (20 sources)fentaNYL; Translations: [FENTANYL]Drug Etwbinw90-40-6612Odrcbpl, Other (See Comments)[facility] HamiltonComment on above:Onset Date: 09/20/2017 (20 sources)terbinafine; Translations: [TERBINAFINE]Drug Ylwvwpp96-41-9785Ddan [facility] ClinicComment on above:Onset Date: 07/29/2017 (8 sources)Penicillins; Translations: [PENICILLINS]Drug Vxkeubv34-75-2206Tkzr [facility] (4 sources)Penicillin VDrug AllergyMiriam Hospital [employer] Other (1 source)sulfaSALAzineDrug AllergyUnkOur Lady of Fatima Hospital [employer] Other (12 sources)terbinafine; Translations: [Lamisil]Drug Nzvhohn87-69-5156IpxjfcaIwcMercy Health [facility]iance Hospital (7 sources)oxyCODONE; Translations: [oxycodone]Drug Cadbovb36-27-3985UzeogwueThe [facility]vue Hospital (7 sources)Sulfonamides (Antibiotic); Translations: [Sulfa (Sulfonamide Antibiotics)]Allergy to mmdetzqvh69-49-1529GzxtSnlpuafeaWayne HealthCare Main Campus (2 sources)Penicillins; Translations: [Penicillins]Allergy to drug (finding)[facility] [address] DO Work Phone: (2 sources)Sulfur; Translations: [Sulfur]Drug AllergySteven [facility] Medical Center 600 DO Work Phone: (2 sources)Lamisil CREA; Translations: [Lamisil CREA]Allergy to drug (finding) [place] [address] DO Work Phone: (3 sources)SulfonamideDrug allergyMiriam Hospital [employer] Other (8 sources)Penicillin; Translations: [penicillin]Drug AllergySelect [facility] (20 sources)Substance with sulfonamide structure and antibacterial mechanism of action (substance)Drug jgusfvb49-93-1860NnjfYxssa [place] [employer] Other (1 source)Acetaminophen / oxyCODONEDrug Gkvejzf00-19-2528VhrZanesville City Hospital Repository (1 source)Sulfonamides (Antibiotic)Drug allergy (disorder)34-13-6822QwuZanesville City Hospital Repository (1 source)terbinafineDrug Irdxzxk57-80-4135CdlghmgLyyeg [place] [employer] Other (6 sources)Acetaminophen; Translations: [acetaminophen]Drug Jwsbwnq93-19-4973 [facility] (6 sources)Starch; Translations: [starch]Drug Samlxvi15-69-5277YcueaMslfehxhyOhio State Harding HospitalComment on above:Onset Date: 07/29/2017 (6 sources)Talc; Translations: [talc]Drug Smzhpnw09-55-6685MfkdoHywpkbiyzOhio State Harding HospitalComment on above:Onset Date: 07/29/2017 (1 source)fentaNYLDrug Nzxkwcm24-75-7697YqtqtdfenLutheran Hospital Repository (1 source)PenicillinsDrug allergy (disorder)46-11-9352BikyecxhvLutheran Hospital Repository (1 source)terbinafineDrug Kvnyzxo78-12-2871IoafvyfelLutheran Hospital Repository (9 sources)PenicillinsPropensity to adverse reactions to ozut50-62-6807BdxaGreat Lakes Health System System (18 sources)PenicillinsDrug Rwyhovm05-39-7064ClijGTDX Healthcare Medications Current Medications MedicationDrug Class(es)DatesSig (Normalized)Sig (Original)8 hr acetaminophen 650 mg extended release oral tablet (15 sources)Start: 88-85-2673rosz 2 tablets by mouth every eight hours as needed take 2 tablets by mouth every eight hourstake 2 tablets by mouth every eight hours as neededAcetaminophen ER 650 MG 2 tablets as needed Orally every 8 hrs ActiveamLODIPine 5 mg oral tablet (20 sources)Dihydropyridine Calcium Channel BlockerStart: 11-30-2024 End: 57-96-1046fiyo 1 tablet by mouth once dailyAmlodipine 5 mg tablet Active 0 .ROUTE .COMPLEX 90 August 25, 2025 11:47am Take 1 tablet by mouth once daily Complies with drug therapyStart: 02-18-2018 End: 83-10-4861aqje 1 tablet by mouth once dailyAmlodipine 5 mg Tablet Discontinued 5 MG PO Daily July 04, 2022 12:00am May 06, 2024 12:19pm Comment on above:Take 5 mg by mouth.aspirin 81 mg delayed release oral tablet (18 sources)Platelet Aggregation Inhibitor, Nonsteroidal Anti-inflammatory Drug aspirin (Aspirin EC Low Strength) 81 MG EC tablet 1 capsule 1 (one) time each day at the same time Cepqzq18 hr buPROPion hydrochloride 150 mg extended release oral tablet (12 sources)AminoketoneStart: 10-05-2024 End: 94-67-1011petu 1 tablet by mouth every twenty-four hours in the morning Bupropion Hcl 150 mg tablet extended release 24 hr Active 0 .ROUTE .COMPLEX 90 March 03, 2025 11:52am TAKE 1 TABLET BY MOUTH IN THE MORNING Complies with drug therapyStart: 03-18-2024 End: 48-59-4261awia 1 tablet by mouth once daily in the morningBupropion Hcl (Wellbutrin Xl) 150 mg tablet extended release 24 hr Discontinued 150 MG PO Every morning 90 April 08, 2024 12:00pm October 05, 2024 9:45am cholecalciferol 0.05 mg oral capsule (5 sources)Vitamin DStart: 46-24-3114vclj 1 capsule by mouth once dailytake 1 capsule by mouth every twenty-four hourscholecalciferol (Vitamin D3) 200 Unit tablet split tablet (18 sources)cholecalciferol (Vitamin D3) 200 Unit tablet split tablet in the morning. Activecholecalciferol (Vitamin D3) 200 Unit tablet split tablet Daily. Activecholecalciferol, vitamin D3, (VITAMIN D3 ORAL) (9 sources)cholecalciferol, vitamin D3, (VITAMIN D3 ORAL) daily. Active cholecalciferol, vitamin D3, (VITAMIN D3 ORAL) daily. 0 Activecyclobenzaprine hydrochloride 10 mg oral tablet (7 sources)Muscle RelaxantStart: 52-29-1329jloobykapdkexns (Flexeril) 10 MG tablet Indications: Other insomnia , Other chronic pain Take 1/2-1at bedtime 30 tablet 2 02/16/2025 Activedoxepin hydrochloride 10 mg oral capsule (14 sources)Tricyclic AntidepressantStart: 23-99-2254noqj 1 capsule by mouth once at bedtimedoxepin (SINEquan) 10 MG capsule Indications: Primary insomnia 1- 2 po q hs 60 capsule 2 01/14/2025 Activedoxycycline hyclate 100 mg oral tablet (4 sources)Tetracycline-class DrugStart: 06-67-8162izhd 1 tablet by mouth twice dailyDoxycycline Hyclate 100 mg tablet Active 100 MG PO Twice daily 14 August 21, 2024 12:00am Complies with drug therapyezetimibe 10 mg / simvastatin 40 mg oral tablet (12 sources)HMG-CoA Reductase Inhibitor, Dietary Cholesterol Absorption InhibitorStart: 55-86-7572vpwd 1 tablet by mouth once dailyezetimibe-simvastatin (VYTORIN) 10-40 mg per tablet Take 1 tablet by mouth nightly. 08/23/2006 Active Comment on above:Take one(1) tablet daily.fluconazole 100 mg oral tablet (7 sources)Azole AntifungalStart: 97-22-6222ermz 1 tablet by mouth every twenty- four hourslidocaine 0.05 mg/mg medicated patch (9 sources)Antiarrhythmic, Amide Local AnestheticStart: 62-88-2101nxxiv 1 dose transdermal route once daily as needed for painlidocaine (LIDODERM) 5 % Place 1 patch on the skin daily as needed for pain (pain) for up to 15 doses. Remove & Discard patch within 12 hours or as directed by MD Bhatia patch 07/21/2023 Xtchst41 hr metoprolol succinate 50 mg extended release oral tablet (20 sources)beta-Adrenergic BlockerStart: 58-12-8197kqdf 1 tablet by mouth once dailyMetoprolol Succinate 50 mg tablet extended release 24 hr Active 50 MG PO Daily 90 0 August 25, 2025 12:00am Complies with drug therapyStart: 02-18-2018 End: 34-59-5242vejc 1 tablet by mouth twice dailyMetoprolol Tartrate 25 mg Tablet Discontinued 25 MG PO Twice daily July 04, 2022 12:00am January 16, 2024 4:02pmStart: 21-84-6639UHMYOORLBH TARTRATE, SHORT ACTING, 50 mg tablet metoprolol tartrate (Lopressor) 25 MG tablet every 12 (twelve) hours Active multivitamin (THERAGRAN) tablet (9 sources)Start: 99-93-6029dihj 1 tablet by mouth in the morningmultivitamin (THERAGRAN) tablet Take 1 tablet by mouth in the morning. 10/09/2005 Active Start: 66-50-2125zpgq 1 tablet by mouth in the morningmultivitamin (THERAGRAN) tablet Take 1 tablet by mouth in the morning. 0 10/09/2005 Activeondansetron 4 mg oral tablet (4 sources)Serotonin-3 Receptor Antagonisttake 1 tablet by mouth three times daily as needed for nauseaZofran 4 MG 1 tablet Orally 3 times a day prn nausea ActivepredniSONE 20 mg oral tablet (20 sources)Start: 08-20-2025 End: 47-04-0952juwz 2 tablets by mouth once daily, then take 1 tablet by mouth once daily at mealtimepredniSONE (Deltasone) 20 MG tablet Indications: Acute right hip pain , Acute pain of left shoulder, Polyarthralgia Take 2 tablets (40 mg) by mouth Daily for 5 days, THEN 1 tablet (20 mg) Daily for 5 days. Take with food. 15 tablet 08/20/2025 08/30/2025 ActiveStart: 09-15-2024 End: 25-69-1304xgkh 1 tablet by mouth once dailyPrednisone 5 mg tablet Active 0 .ROUTE .COMPLEX 90 0 July 07, 2025 1:44pm Take 1 tablet by mouth once daily Complies with drug therapyStart: 35-32-5168rrzo 1 tablet by mouth every twelve hourspredniSONE 20 MG 1 tablet Orally 2 times a day for 5 day(s) Sep, ActiveStart: 07-04-2022 End: 51-36-7719bxmc 1 tablet by mouth once dailyPrednisone 5 mg tablet Discontinued 5 MG PO Daily 30 0 March 12, 2024 12:00am April 10, 2024 9:08am Start: 76-67-0973gnna 2 tablets by mouth once dailypredniSONE 5 MG Oral Tablet TAKE 2 TABLETS BY MOUTH ONCE DAILY OR DIRECTED Quantity: 60 Refills:0 Ordered: 06-Jun-2022 DO Start : 01-Feb-2022 Activerosuvastatin calcium 40 mg oral tablet (20 sources)HMG-CoA Reductase InhibitorStart: 11-17-2024 End: 82-44-2319zsiz 1 tablet by mouth once dailyRosuvastatin 40 mg tablet Active 0 .ROUTE .COMPLEX 90 February 22, 2025 8:26am Take 1 tablet by mouth once daily Complies with drug therapyStart: 02-15-2018 End: 30-52-7011xbyi 1 tablet by mouth once dailyRosuvastatin 40 mg Tablet Discontinued 40 MG PO Daily July 04, 2022 12:00am November 17, 2024 3:34pm sod sulf-pot chloride-mag sulf 1.479-0.188- 0.225 gram tablet (10 sources)Start: 30-38-2815qvh sulf-pot chloride-mag sulf 1.479-0.188- 0.225 gram tablet Indications: History of colon polyps Please see instructional sheet given by physicians office. 24 tablet 01/29/2024 ActiveStart: 33-23-7118ems sulf-pot chloride-mag sulf 1.479-0.188- 0.225 gram tablet Indications: History of colon polyps Please see instructional sheet given by physicians office. 24 tablet 0 01/29/2024 ActiveStart: 01-03-2024 End: 55-97-9545pow sulf-pot chloride-mag sulf 1.479-0.188- 0.225 gram tablet Indications: History of colon polyps Please see instructional sheet given by physicians office. 24 tablet 0 01/03/2024 01/29/2024 Discontinued (Duplicate order)Start: 05-50-0713rvn sulf-pot chloride-mag sulf 1.479-0.188- 0.225 gram tablet Indications: History of colon polyps Please see instructional sheet given by physicians office. 24 tablet 0 01/03/2024 ActivetraMADol hydrochloride 50 mg oral tablet (9 sources)Opioid AgonistStart: 08-20-2025 End: 90-34-9454kdvz 1 tablet by mouth every eight hours for paintraMADol (Ultram) 50 MG tablet Indications: Acute right hip pain , Acute pain of left shoulder , Polyarthralgia Take 1 tablet (50 mg) by mouth every 8 (eight) hours if needed for severe pain for up to 4 days 12 tablet 08/20/2025 08/24/2025 ActiveStart: 05-11-2023 End: 80-36-2912hdew 1 tablet by mouth twice daily as neededtraMADol (Ultram) 50 MG tablet Take 50 mg by mouth 2 (two) times a day as needed. 05/11/2023 025 Discontinuedubidecarenone 200 mg oral capsule (20 sources)take 1 capsule by mouth in the morningcoenzyme Q-10 200 MG capsule Take 200 mg by mouth in the morning. Activetake 10 capsules by mouth once in the morningcoenzyme Q10 200 mg capsule Take 200 mg by mouth in the morning. Active Vitamin D 50 MCG (2000 UT) (10 sources)take 1 capsule by mouth once dailytake 1 capsule by mouth once daily Vitamin D 50 MCG (2000 UT) 1 capsule Orally Once a day Active Completed/Discontinued Medications MedicationDrug Class(es)DatesSig (Normalized)Sig (Original)alendronic acid 70 mg oral tablet (20 sources)BisphosphonateStart: 07-20-2024 End: 67-54-0137tcvj 1 tablet by mouth every weekAlendronate 70 mg tablet Discontinued 0 .ROUTE .COMPLEX 12 0 September 15, 2024 11:42am September 21, 2024 9:31am TAKE 1 TABLET BY MOUTH ONCE WEEKLY 30 MINUTES BEFORE THE FIRST FOOD, BEVERAGE OR MEDICINE OF THE DAY WITH PLAIN WATERStart: 02-16-2022 End: 57-97-5128rijr 1 tablet by mouth every weekAlendronate 70 mg Tablet Discontinued 70 MG PO every week July 04, 2022 12:00am July 10:20am on Saturdaystart: 28-36-5218NBJWKAEHFOQ 70 mg tabletalendronate (FOSAMAX) 70 mg tablet Take 1 tablet (70 mg total) by mouth every 7 days. Active ergocalciferol 2000 unt oral tablet (3 sources)Provitamin D2 CompoundStart: 40-11-2039taew 1 tablet by mouth once dailyergocalciferol, vitamin D2, 2,000 unit Tab Indications: Personal history of malignant neoplasm of breast , Creatinine elevation Take 1 tablet by mouth once daily. 30 tablet 3 06/09/2013 ActiveComment on above:Take 1 tablet by mouth once daily.hydrALAZINE hydrochloride 50 mg oral tablet (20 sources)Arteriolar VasodilatorStart: 02-17-2024 End: 69-59-1301louz 1 tablet by mouth once daily at mealtimeHydralazine 50 mg tablet Discontinued 0 .ROUTE .COMPLEX 90 0 February 17, 2024 1:02pm March 12, 2024 11:49am Take 1 tablet by mouth once daily with foodStart: 02-15-2018 End: 56-27-2980muoj 1 tablet by mouth once daily at mealtimeHydralazine 50 mg tablet Discontinued 1 TAB PO Daily March 11, 2024 12:00am July 07, 2024 1:15pm FreeTextSi tablet with food Orally ONCE A DAY; Note: Source Status: Refill; Refills: 0; Provider: Lionel Edwards EhydrALAZINE (Apresoline) 50 MG tablet every 8 (eight) hours ActiveComment on above:Take 50 mg by mouth. hydroCHLOROthiazide 12.5 mg / valsartan 160 mg oral tablet (3 sources)Thiazide Diuretic, Angiotensin 2 Receptor BlockerStart: 07-01-2012 DIOVAN HCT 160-12.5 mg per tabletMULTIVITAMIN TAB (4 sources)Start: 87-22-9104CWLABXDPOWZO TAB Take one(1) tablet daily. 0 10/09/2005 ActiveComment on above:Take one(1) tablet daily.sertraline 50 mg oral tablet (4 sources)Serotonin Reuptake InhibitorStart: 03-12-2024 End: 47-75-7765ahbp 1 tablet by mouth once dailySertraline 50 mg tablet Discontinued 50 MG PO Daily 30 0 March 12, 2024 12:00am March 18, 2024 10:31am tiZANidine 4 mg oral tablet (4 sources)Central alpha-2 Adrenergic AgonistStart: 04-30-2024 End: 33-80-5359itxq 1 tablet by mouth once daily at bedtime as neededTizanidine 4 mg tablet Discontinued 4 MG PO Daily at bedtime as needed for muscle spasticity 14 0 April 30, 2024 12:00am August 25, 2025 11:50amzolpidem tartrate 10 mg oral tablet (20 sources)gamma-Aminobutyric Acid-ergic AgonistStart: 07-18-2012 End: 17-96-7432oxpm 1 tablet by mouth once daily at bedtime as neededZolpidem 10 mg Tablet Discontinued 10 MG PO Daily at bedtime as needed for Insomnia July 04, 2022 12:00am January 16, 2024 4:02pmComment on above:Take 10 mg by mouth once daily. Problems Active Problems Problem ClassificationProblemDateDocumented DateEpisodic/Chronic Administrative/social admission (7 sources)Bereavement; Translations: [Disappearance and of family member] 44-78-6597OdkwuacjOpgtkfv disorders (4 sources)Anxiety disorder; Translations: [Anxiety disorder, unspecified]Onset: 33-15-7738ZcwlyvdHmxcrs of breast (20 sources)Malignant neoplasm of upper-outer quadrant of female breast; Translations: [Malignant neoplasm of upper-outer quadrant of left female breast] Onset: 795928-05-9039YmbkppuCyfdiqe dysrhythmias (2 sources)Sinus bradycardia; Translations: [Other specified cardiac dysrhythmias]EpisodicChronic kidney disease (20 sources)Chronic kidney disease stage 3A ; Translations: [Chronic kidney disease, stage 3a]ChronicDelirium, dementia, and amnestic and other cognitive disorders (7 sources)Progressive aphasia; 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]43-18-3452Sjeosio Disorders of lipid metabolism (16 sources)Hyperlipidemia; Translations: [Other and unspecified hyperlipidemia] Onset: 01-81-3323OfssjgoUjxkphsvjw disorders (1 source)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; Translations: [BARRETTS ESOPHAGUS W/O DYSPLASIA]Onset: 63-81-8767HczcpreMlnxjcozt hypertension (20 sources)Essential hypertension; Translations: [Essential (primary) hypertension]Onset: 06-12-2022 Resolved: 84-30-1523SckttqwRgseuwhcfauvi symptoms and ill-defined conditions (4 sources)Hematuria, unspecified; Translations: [Proteinuria, unspecified] Onset: 06-12-2022 Resolved: 32-80-6006IbqmdlzeImtkhgmysnnts and screening for infectious disease (20 sources)Other specified abnormal immunological findings in serum; Translations: [Contact with and (suspected) exposure to other viral communicable diseases]Onset: 06-12-2022 Resolved: 43-24-3998MqqferqfHotpocinqabg diseases of female pelvic organs (4 sources)Acute vaginitis; Translations: [Acute vaginitis]EpisodicInfluenza (5 sources)Influenza due to other identified influenza virus with other respiratory manifestations; Translations: [Influenza due to Influenza A virus with upper respiratory signs]EpisodicJoint disorders and dislocations; trauma-related (18 sources)Derangement of left knee; Translations: [Unspecified internal derangement of left knee]Onset: 717135-75-0619MoqcmgvEppwiebqrjggy mental health disorders (14 sources)Primary insomnia; Translations: [Primary insomnia]ChronicMood disorders (12 sources)Depressive disorder; Translations: [Depression]56-30-9417Knxjimi Osteoarthritis (20 sources)Unspecified osteoarthritis, unspecified site; Translations: [Osteoarthritis]Onset: 778528-22-1333KjonvmuBxopzhxkigrh (6 sources)Primary osteoporosis; Translations: [Age-related osteoporosis without current pathological fracture]57-86-7864ErxsfgyJxamx aftercare (2 sources)intermediate (current) use of non-steroidal anti-inflammatories (NSAID) Onset: 06-12-2022 Resolved: 24-71-4771TcepniiiQkvrs aftercare (1 source)Other rn long term care (current) drug therapy; Translations: [OTH HOSPITAL COORDINATOR CURRENT DRUG THERAPY]Onset: 33-45-1708YszjpjswAvwbn circulatory disease (4 sources)Elevated blood-pressure reading without diagnosis of hypertension; Translations: [Elevated blood-pressure reading, without diagnosis of hypertension]EpisodicOther connective tissue disease (1 source)History of repair of hip joint; Translations: [Presence of unspecified artificial hip joint]44-99-7780XsebdkcUvcff connective tissue disease (5 sources)Polymyalgia rheumatica; Translations: [POLYMYALGIA RHEUMATICA]Onset: 19-17-8800QbvsbtkTjqcc connective tissue disease (1 source)Presence of left artificial knee joint; Translations: [PRESENCE LEFT ARTIFICIAL KNEE JOINT]Onset: 38-15-6926EfoqkifAscgi connective tissue disease (4 sources)Polymyalgia rheumatica; Translations: [Polymyalgia rheumatica]Chronic Other connective tissue disease (18 sources)Artificial knee joint present; Translations: [Presence of unspecified artificial knee joint]Onset: 451084-22-3553PqvctfmXtmzv connective tissue disease (20 sources)History of total knee arthroplasty; Translations: [Presence of left artificial knee joint]Onset: 746553-34-8839FidmbzkBnjey connective tissue disease (2 sources)History of total replacement of right hip joint; Translations: [Presence of right artificial hip joint]29-28-9255SckavumOqmbu connective tissue disease (4 sources)Neuralgia; Translations: [Neuralgia and neuritis, unspecified] EpisodicOther endocrine disorders (4 sources)Hypoglycemia; Translations: [Hypoglycemia, unspecified]Onset: 19-98-5033GefgfgvWngse gastrointestinal disorders (4 sources)Abnormal feces; Translations: [Other fecal abnormalities]Episodic Other injuries and conditions due to external causes (4 sources)History of fall; Translations: [History of falling]EpisodicOther lower respiratory disease (4 sources)Cough; Translations: [Cough, unspecified]EpisodicOther nervous system disorders (2 sources)Chronic pain; Translations: [Other chronic pain]14-10-4506Abaxptg Other nervous system disorders (4 sources)Skin sensation disturbance; Translations: [Other disturbances of skin sensation]EpisodicOther nervous system disorders (2 sources)Pseudodementia; Translations: [Other symptoms and signs involving cognitive functions and awareness]57-33-4039ImncmndtHahwm nervous system disorders (3 sources)Word finding difficulty ; Translations: [Other speech disturbances] 77-68-0541JvgngcyeItndm non-traumatic joint disorders (4 sources)Joint pain; Translations: [Pain in unspecified joint]03-19-2024 EpisodicOther non-traumatic joint disorders (2 sources)Pain in left knee; Translations: [Pain in joint, lower leg]11-25-2024 EpisodicOther non-traumatic joint disorders (4 sources)Hip pain; Translations: [Pain in right hip]46-52-9030LsnzsaxdAomgt non-traumatic joint disorders (2 sources)Pain in left shoulder; Translations: [Pain in joint, shoulder region] 53-45-2590DdzikvscLtmuc non-traumatic joint disorders (4 sources)Multiple joint pain; Translations: [Pain in unspecified joint] 14-13-2733SaljypfaFssga nutritional; endocrine; and metabolic disorders (4 sources)Obesity; Translations: [Obesity, unspecified]ChronicOther nutritional; endocrine; and metabolic disorders (4 sources)Body mass index 30+ - obesity; Translations: [Body mass index (BMI) 30.0-30.9, adult]ChronicOther nutritional; endocrine; and metabolic disorders (6 sources)Overweight; Translations: [Overweight]EpisodicOther nutritional; endocrine; and metabolic disorders (4 sources)Other symptoms and signs concerning food and fluid intake; Translations: [Nutritional status: food and fluid intake]EpisodicOther screening for suspected conditions (not mental disorders or infectious disease) (6 sources)Encounter for screening mammogram for malignant neoplasm of breast; Translations: [Patient encounter status]Onset: 12-56-1440SgsjgazyNqukn skin disorders (4 sources)Mass of scalp; Translations: [Localized swelling, mass and lump, head]71-96-6113SwiphhseRloif skin disorders (2 sources)Localized swelling, mass and lump, head; Translations: [Localized superficial swelling, mass, or lump]25-47-3348YjuortixSfuga skin disorders (1 source)Epidermal cyst; Translations: [Epidermal cyst]Onset: 09-02-2024 EpisodicOther upper respiratory infections (4 sources)Chronic sinusitis; Translations: [Chronic sinusitis, unspecified] ChronicRegional enteritis and ulcerative colitis (9 sources)Pseudopolyposis of colon; Translations: [Inflammatory polyps of colon without complications]Onset: 720762-93-8156NzsbkavLvrqdlgt codes; unclassified (6 sources)Insomnia; Translations: [Other insomnia]64-06-0065LgnubrkWojctkwy codes; unclassified (11 sources)Insomnia; Translations: [Insomnia, unspecified]Onset: 03-08-2014 05-28-9696LpznmuduYsiwqhfv codes; unclassified (4 sources)Memory impairment; Translations: [Other amnesia]35-74-4121Xgtrihcj Residual codes; unclassified (12 sources)Amnesia; Translations: [Other amnesia]05-11-4406MpuhljenKfardqaj codes; unclassified (2 sources)Chronic yitt44-23-8258DyaosifqJnhiacbkwsd; intervertebral disc disorders; other back problems (8 sources)Disorder of sacrococcygeal spine; Translations: [Sacrococcygeal disorders, not elsewhere classified]Onset: 951420-28-5544Gencorjy Unclassified (3 sources)History of repair of hip joint; Translations: [Hip joint replacement by other means]74-81-4440Cwzamojpkuol (1 source)CONTACT W/AND (SUSP) EXPOS COVID-19; Translations: [CONTACT W/AND (SUSP) EXPOS COVID-19]Onset: 47-77-9622Csjojxjvbchl (1 source)Post-opOnset: 26-02-8410Nqqwftsrbczo (1 source)CystOnset: 03-11-7829Terhqhhirnfr (1 source)Colon Cancer ScreeningOnset: 01-03-2024 Past or Other Problems Problem ClassificationProblemDateDocumented DateEpisodic/ChronicAllergic reactions (4 sources)Urticaria, unspecified; Translations: [Urticaria]Onset: 03-08-2014 EpisodicCancer of breast (20 sources)History of malignant neoplasm of breast; Translations: [Personal history of malignant neoplasm of breast]Onset: 372820-44-6431Zygrdyjf Chronic kidney disease (3 sources)Chronic kidney diseaseOnset: 06-12-2022 Resolved: 73-58-6797Waedaivg of mouth; excluding dental (4 sources)Disorder of salivary gland; Translations: [Other diseases of salivary glands]Onset: 85-87-3285FykavoncQwezkfb (9 sources)Candidiasis of skin and nail; Translations: [Tinea cruris]Onset: 10-80-0589MdtvzwvsWjrv wounds of head; neck; and trunk (20 sources)Open wound of anterior abdominal wall with complication; Translations: [Unspecified open wound of abdominal wall, unspecified quadrant without penetration into peritoneal cavity, initial encounter]Onset: 10-01-2005 35-19-1039JbodyqapHhscq and unspecified benign neoplasm (5 sources)Personal history of colonic polyps; Translations: [PERSONAL HISTORY OF COLONIC POLYPS]Onset: 85-37-6791PxibskiqEaolg and unspecified benign neoplasm (1 source)Benign neoplasm of sigmoid colon; Translations: [BENIGN NEOPLASM OF SIGMOID COLON]Onset: 14-46-6359ZqovedcwJazsu and unspecified benign neoplasm (3 sources)History of polyp of colon; Translations: [Personal history of colonic polyps]01-05-4820PexiurthNyapj bone disease and musculoskeletal deformities (4 sources)Bone density finding; Translations: [Other specified disorders of bone density and structure, unspecified site]Onset: 27-14-9738WoxcymgpSlgof non- traumatic joint disorders (9 sources)Pain in right knee; Translations: [Pain in joint, lower leg]Onset: 583293-16-0821RgdyguooTeqcx skin disorders (4 sources)Epidermoid cyst; Translations: [Epidermal cyst]40-65-8519Gzdsjvuy Residual codes; unclassified (1 source)Acquired absence of left breast and nipple; Translations: [ACQUIRED ABSENCE LT BREAST AND NIPPLE]Onset: 72-00-0723WlycqlwfGnwoxdhd codes; unclassified (1 source)Family history of malignant neoplasm of breast; Translations: [FAMILY HX MALIG NEOPLASM OF BREAST]Onset: 65-69-2447HzjayhqlPpjpuutc codes; unclassified (1 source)Family history of malignant neoplasm of ovary; Translations: [FAM HX MALIGNANT NEOPLASM OVARY]Onset: 75-09-7880TagjxwoeTkuedive codes; unclassified (1 source)Family history of malignant neoplasm of other genital organs; Translations: [FAM HX MALIG NEOPLSM OT GENIT ORGN]Onset: 58-06-7944Zsuyliev Residual codes; unclassified (4 sources)Postmenopausal state; Translations: [Asymptomatic menopausal state] Onset: 64-37-4254TwvotnzbLzcwmwsc codes; unclassified (4 sources)Family history of breast cancer; Translations: [Family history of malignant neoplasm of breast]Onset: 42-64-9395LrutsymxZdekipsax and history of mental health and substance abuse codes (3 sources)Ex-smoker; Translations: [Personal history of tobacco use]Onset: 37-25-8681Xzbwdfip Results Test NameValueInterpretationReference RangeFacilityALL CBC WITH AUTO DIFFon 29-68-2898SAVMFMNQD ABSOLUTE AUTO0.0NOMD HealthcareBasophils/100 WBC (Bld)0.5 % 0.2 - 2.0 %NOMThe Rehabilitation Institute Of St. LouisEosinophils/100 WBC (Bld)1.3 %0.9 - 7.0 %[facility] State HospitalErythrocyte distribution width (RBC) [Ratio]14.0 %11.0 - 15.0 %NOMThe Rehabilitation Institute Of St. LouisHematocrit (Bld) [Volume fraction]41.1 %36.0 - 48.0 %[facility] Hemoglobin (Bld) [Mass/Vol]13.4 g/dL12.0 - 16.0 g/dLFulton State HospitalIMMATURE GRANULOCYTES ABS AUTO0.02NOMissouri Baptist Medical CenterImmature granulocytes/100 WBC (Bld)0.2 % 0.0 - 0.5 %[facility] HospitalInterpretation and review of laboratory results AbnormalNOMissouri Baptist Medical CenterLYMPHOCYTES ABSOLUTE AUTO1.4NOMissouri [facility] Medical Center Lymphocytes/100 WBC (Bld)16.4 %Low20.5 - 60.0 %Kindred HospitalH (RBC) [Entitic mass]30.1 pg26.7 - 34.0 pgKindred HospitalHC (RBC) [Mass/Vol]32.6 g/dL29.9 - 35.2 g/dLKindred HospitalV (RBC) [Entitic vol]92.4 fL81.0 - 99.0 fLFulton State HospitalMONOCYTES ABSOLUTE AUTO0.7NOMissouri Baptist Medical CenterMonocytes/100 WBC (Bld)8.4 % 1.7 - 12.0 %[facility] HospitalNEUTROPHILS ABSOLUTE AUTO6.1NOM[facility] Neutrophils/100 WBC (Bld)73.2 %43.0 - 75.0 %[facility] State HospitalPlatelet mean volume (Bld) [Entitic vol]10.2 fL9.5 - 13.5 fLFulton State HospitalTBH EO #0.1NOM[facility] TBH [id number] [facility] RBC4.45NOMS Genesis HospitalTB WBC8.3NOMissouri Baptist Medical Center CLINISYNCNOMD HealthcareBasophils Auto (Bld) [#/Vol]Ordered By: Florinda Flowers on 79-72-7541Wyjnhcmxh (Bld) [#/Vol]0.0 10 3/uL0.0-0.1FCleveland Clinic Euclid HospitalBasophils/100 WBC Auto (Bld)Ordered By: Florinda Flowers on 08-20-2025 Basophils/100 WBC (Bld)0.5 %0.2-2.0[facility]uther[facility] HospitalBorrelia burgdorferi IgG+IgM Ab [Presence] in Serum by ImmunoassayOrdered By: Ryan Milton on 08-20-2025. burgdorferi IgG+IgM IA Ql (S)NegativeNegativeLutheran HospitalComment on above:Lyme antibodies not detected. Reflex testing is notindicated.No laboratory evidence of infection with B. burgdorferi(Lyme disease). Negative results may occur in patientsrecently infected (less than or equal to 14 days) with B.burgdorferi. If recent infection is suspected, repeattesting on a new sample collected in 7 to 14 days isrecommended.Performed at: [facility] [employer] [id number] Director: Cody Williamson PhD, Phone: [phone] Ab [Titer] in Serum by ImmunofluorescenceOrdered By: Ryan Milton on 08-20-2025 Centriole Ab IF (S) [Titer][facility] CenterCentromere Ab [Titer] in Serum by ImmunofluorescenceOrdered By: Ryan Milton on 08-20-2025 Centromere Ab IF (S) [Titer][facility] CenterEosinophils/100 WBC Auto (Bld)Ordered By: Florinda Flowers on 05-59-9125Jnidcmmuoxj/100 WBC (Bld) 1.3 %0.9-7.0[facility] HospitalErythrocyte distribution width Auto (RBC) [Ratio]Ordered By: Florinda Flowers on 48-96-4086Bgywbnccdmv distribution width (RBC) [Ratio]14.0 %11.0-15.0[facility] HospitalHematocrit Auto (Bld) [Volume fraction]Ordered By: Florinda Flowers on 41-29-2907Lcrblnwpsh (Bld) [Volume fraction]41.1 %36.0-48.0[facility] Hemoglobin [Mass/volume] in BloodOrdered By: Florinda Flowers on 08-20-2025 Hemoglobin (Bld) [Mass/Vol]13.4 g/dL12.0-16.0[facility] - Chemistry and Chemistry - challengeOrdered By: Ryan Milton on 56-41-9677Kszzr [Mass/Vol]5.2 mg/dL2.6-6.0[facility] - Hematology and Cell countsOrdered By: Ryan Milton on 08-20-2025 ESR (Bld) [Velocity]44 mm/hHigh<=30[facility] HospitalLaboratory - Hematology and Cell countsOrdered By: Florinda Flowers on 24-70-0120Hhwpsxdn granulocytes/100 WBC (Bld)0.2 %0.0-0.5FCleveland Clinic Euclid Hospital Leukocytes [#/volume] corrected for nucleated erythrocytes in Blood by Automated counOrdered By: Florinda Flowers on 45-96-5088RQV corrected for nucl RBC Auto (Bld) [#/Vol]8.3 10 3/uL4.0-11.0[facility] HospitalLymphocytes Auto (Bld) [#/Vol]Ordered By: Florinda Flowers on 43-27-1643Vymfsmbzmor (Bld) [#/Vol]1.4 10 3/uL1.2-3.8L[facility] HospitalLymphocytes/100 WBC Auto (Bld) Ordered By: Florinda Flowers on 94-65-2783Xfabpkpvgqp/100 WBC (Bld)16.4 %Low 20.5-60.0[facility] Auto (RBC) [Entitic mass]Ordered By: Florinda Flowers on 34-87-6716NHL (RBC) [Entitic mass]30.1 pg26.7-34.0[facility] WestHC Auto (RBC) [Mass/Vol]Ordered By: Florinda Flowers on 73-32-1704XWAV (RBC) [Mass/Vol]32.6 g/dL29.9-35.2FCleveland Clinic Euclid HospitalMCV Auto (RBC) [Entitic vol]Ordered By: Florinda Flowers on 14-81-9056XKR (RBC) [Entitic vol]92.4 fL81.0-99.0[facility] HospitalMidbody Ab [Titer] in Serum by ImmunofluorescenceOrdered By: Ryan Milton on 08-20-2025 Midbody Ab IF (S) [Titer]TNP.Lutheran HospitalMitotic spindle apparatus Ab [Titer] in Serum or Plasma by ImmunofluorescenceOrdered By: Ryan Milton on 64-05-1472Zytmynx spindle apparatus Ab IF [Titer]TNP.[facility] HospitalMonocytes Auto (Bld) [#/Vol]Ordered By: Florinda Flowesr on 54-00-3028Micqktkud (Bld) [#/Vol]0.7 10 3/uL0.3-0.8L[facility] HospitalMonocytes/100 WBC Auto (Bld)Ordered By: Florinda Flowers on 08-20-2025 Monocytes/100 WBC (Bld)8.4 %1.7-12.0[facility] HospitalNeutrophils Auto (Bld) [#/Vol]Ordered By: Florinda Flowers on 18-95-8983Imvlrtlyiwr (Bld) [#/Vol]6.1 10 3/uL1.4-6.5FCleveland Clinic Euclid HospitalNeutrophils/100 WBC Auto (Bld)Ordered By: Florinda Flowers on 09-75-0999Bhclfilbjxb/100 WBC (Bld)73.2 % 43.0-75.0[facility] HospitalNo Panel InformationOrdered By: Ryan Milton on 49-52-6705Vtiq-Nuclear Antibody Comment 2Comment.Lutheran HospitalComment on above:Pattern Potential Disease Association Homo geneous Systemic Lupus Erythematosus, Drug Induced Systemic Lupus Erythematosus, Chronic Autoimmunehepatitis, Juvenile Idiopathic Arthritis Speckled Sjogren Syndrome, Systemic Lupus Erythematosus, Subacute Cutaneous Lupus, Lupus, Congenital Heart Block, Mixed Connective Tissue Disease, Scleroderma-diffuse, Scleroderma- Autoimmune Myositis Overlap Syndrome, Systemic Lupus Ovswnpwetzaun-Wwehodihsuk-Lbnqzbyuvn Myositis Overlap Syndrome, Systemic Autoimmune Rheumatic Disease, Undifferentiated Connective Tissue Disease Nucleolar Systemic Sclerosis, Scleroderma-Autoimmune Myositis Overlap Syndrome, Sjogren Syndrome, Raynaud phenomenon, Pulmonary Arterial Hypertension, Systemic Autoimmune Rheumatic Disease, Cancer Centromere Scleroderma-CREST, Limited Cutaneous SSc, Raynaud's Phenomenon, Primary Biliary Cholangit is Nuclear Dot Primary Biliary Cholangitis Nuclear Primary Biliary Cholangitis, AutoimmuneMembrane Hepatitis/Liver disease, Systemic Autoimmune Rheumatic Disease, Autoimmune Cytopenias, Linear Scleroderma, Antiphospholipid Syndrome Performed at: [facility] [id number] [place], [place] [id number] Director: Cody Williamson PhD, Phone: [phone]-Bwetfuff Protein, Quantitative<0.50 mg/dL <=0.50Luther[facility] HospitalMiscellaneous TestCOMMENT.Lutheran HospitalComment on above:Test Ordered: [id number] Ceron AntibodiesSmith Antibodies <0.2 AI CB Reference Range: 0.0-0.9Performed at: - [facility] [id number] [place], [place] [id number] Director: Cody Williamson PhD,Phone: [phone] Panel InformationOrdered By: Florinda Flowers on 43-45-1597Dnjzdvfbaxh # (Auto)0.1 10 3/uL0.0-0.7FCleveland Clinic Euclid HospitalImmature Granulocyte # (Auto)0.02 10 3/uL0.00-0.03Lutheran HospitalNuclear dots nuclear Ab pattern [Titer] in Serum by ImmunofluorescenceOrdered By: Ryan Milton on 16-81-2362Zddokqz dots nuclear Ab pattern IF (S) [Titer]TNP.[facility]utheran HospitalNuclear membrane pores nuclear Ab pattern [Titer] in Serum by ImmunofluorescenceOrdered By: Ryan Milton on 94-07-9450Atuvfzv membrane pores nuclear Ab pattern IF (S) [Titer]TNP.Lutheran HospitalPCNA extractable nuclear Ab [Titer] in Serum by ImmunofluorescenceOrdered By: Ryan Milton on 35-16-3677RACS extractable nuclear Ab IF (S) [Titer]TNP.[facility] Platelet mean volume Auto (Bld) [Entitic vol]Ordered By: Florinda Flowers on 21-20-1520Krskqdqa mean volume (Bld) [Entitic vol]10.2 fL9.5-13.5FCleveland Clinic Euclid HospitalPlatelets Auto (Bld) [#/Vol]Ordered By: Florinda Flowers on 30-93-0250Iosscnntr (Bld) [#/Vol]278 10 3/qT587-501RaaasueijLutheran HospitalRBC Auto (Bld) [#/Vol]Ordered By: Florinda Flowers on 40-99-1578ESP (Bld) [#/Vol]4.45 10 6/uL4.20-5.40Flower Hospitalerum homogeneous pattern antinuclear antibody (WADE) titerOrdered By: Ryan Milton on 08-20-2025 Homogenous nuclear Ab pattern (S) [Titer]1:640Abnormal.Lutheran HospitalComment on above:ICAP nomenclature: AC-1Serum nuclear antibody titerOrdered By: Ryan Milton on 02-93-2234Xenpcuj Ab (S) [Titer]Positive Abnormal.Lutheran HospitalComment on above:Negative <1:80 Borderline 1:80 Positive >1:80Serum nucleolar pattern antinuclear antibody (WADE) titerOrdered By: Ryan Milton on 25-00-1234Dqzncswtw nuclear Ab pattern (S) [Titer]TNP.Flower Hospitalerum or plasma rheumatoid factor measurement (units/volume)Ordered By: Ryan Milton on 24-23-5688Zfarbrcrji factor Qn12.1 [IU]/mL<14.0Lutheran HospitalComment on above: Performed at: [address] [id number] Director: Cody Williamson PhD, Phone: [phone] speckled pattern antinuclear antibody (WADE) titerOrdered By: Ryan Milton on 14-33-5639Nvwrhlte nuclear Ab pattern (S) [Titer]TNP.Lutheran HospitalXR Hip - right 3 Viewson 24-15-7142Ffeproz Result: AP and Lateral Right hip: AP [...] dislocation. Impression: Unremarkable right total hip arthroplasty. [facility] HealthcareRadiology Study observation (narrative)[facility] State HospitalSurgical Pathologyon 16-78-7489XseVgcrihMercy Health St. Joseph Warren HospitalLon 09-08-2024L Specimen: [id number] Received: 09/09/24 Status: NASIR [place]brook Num: [id number] Spec Type: Surgical Subm Dr: Rehana Reinoso DO Tissues: A Skin Cyst (LT POSTERIOR SCALP CYST) Procedures: , Gross/Micro L3 Age/ Patient Sex Location Account Attending Physician Uzma Ramirez 68/F [facility] [id number] Rehana Reinoso DO SPEC NUM: [id number] RECD: 09/09/24 STATUS: NASIR WE[place]BROOK NUM: [id number] MARIBELL: 09/08/[address] [facility] [address]: Rehana Reinoso DO ENTERED: 09/09/24 [facility] DR: Kenneth Sanon SPEC TYPE: Surgical DEPT: FLIP FRANZ ENTERED BY: [id number] RECV BY: [id number] ORDERED: , Gross/Micro L3 ORDERED: , Gross/Micro L3 Pathological Diagnosis Cyst, left posterior scalp, excision: Features consistent with ruptured epidermal inclusion cyst with surrounding soft tissue inflammation. Clinical Information Inclusion cyst Gross Description A. Received in formalin labeled posterior scalp cyst are 2 ovoid portions [...] specimen A4 Central aspect of smaller specimen (For, jenny, B21-430 A)KAT Specimen: [id number] Received: 09/09/24 Status: NASIR [place]brook Num: [id number] Spec Type: Surgical Subm Dr: Rehana Reinoso DO Tissues: A Skin Cyst (LT POSTERIOR SCALP CYST) Procedures: /4, Gross/Micro L3 Patient: Uzma Ramirez [id number] (Continued) Specimen: [id number] Received: 09/09/24 (Continued) Signed (signature on file) Andreas Meier MD 09/10/24 1711 Specimen: [id number] Received: 09/09/24 Status: NASIR Clau Num: [id number] Spec Type: Surgical Subm Dr: Rehana Reinoso,DO Tissues: A Skin Cyst (LT POSTERIOR SCALP CYST) Procedures: EARL/Deondre, Gross/Micro L3 Patient: Uzma Ramirez [id number] (Continued) Specimen: [id number] Received: 09/09/24 (Continued) CPT Codes 02974 Specimen: [id number] Received: 09/09/24 Status: NASIR [place] Num: [id number] Spec Type: Surgical Subm Dr: Rehana Reinoso DO Tissues: A Skin Cyst (LT POSTERIOR SCALP CYST) Procedures: Eddie PASCAL/Luisana L3 Patient: Uzma Ramirez [id number] (Continued) Signed (signature on file) Andreas Meier MD 09/10/[address] [place] [address] Physician GroupUnlisted Non-[facility] Procedure on 19-93-5281FofZgbzqh Health SystemColonoscopyon 36-39-0250PsxJrqsar [facility] 52-12-5808OQsqhqcnw: [id number] Received: 02/05/24 Status: NASIR Coradoq Num: [id number] Spec Type: Surgical Subm Dr: Rehana Reinoso DO Tissues: A Colon Biopsy (SIGMOID POLYP) B Colon Biopsy (CECUM) C Colon Biopsy (DESC) D Colon Biopsy (RECTAL SIGMOID JUNCTION) Procedures: HE/8, Gross/Micro L4/4 Age/ Patient Sex Location Account Attending Physician Uzma Ramirez 68/F [facility] [id number] Rehana Reinoso DO SPEC NUM: [id number] RECD: 02/05/24 STATUS: NASIR [place]OOK NUM: [id number] MARIBELL: 02/05/24 DR: Rehana Reinoso DO ENTERED: 02/05/24 [facility] DR: Kenneth Sanon SPEC TYPE: Surgical DEPT: FLIP FRANZ ORDERED: [...] on file) Hermes Antony MD 02/12/24 0857 Pathological Diagnosis A, sigmoid polyp polypectomy: -Tubulovillous adenoma with high-grade feature -Negative cauterized submucosal margin is also provided B, cecum polyp polypectomy: Specimen: [id number] Received: 02/05/24 Status: NASIR [place]brook Num: [id number] Spec Type: Surgical Subm Dr: Rehana Reinoso DO Tissues: A Colon Biopsy (SIGMOID POLYP) B Colon Biopsy (CECUM) C Colon Biopsy (DESC) D Colon Biopsy (RECTAL SIGMOID JUNCTION) Procedures: /Gilberto, Gross/Micro L4/4 Patient: Uzma Ramirez [id number] (Continued) Specimen: [id number] Received: 02/05/24 (Continued) Pathological Diagnosis (Continued) Signed (signature on file) Tamiko Antony MD 02/08/24 1856 Specimen: [id number] Received: 02/05/24 Status: NASIR [place] Num: [id number] Spec Type: Surgical Subm Dr: Rehana Reinoso,DO Tissues: A Colon Biopsy (SIGMOID POLYP) B Colon Biopsy (CECUM) C Colon Biopsy (DESC) D Colon Biopsy (RECTAL SIGMOID JUNCTION) Procedures: HE/8, Gross/Micro L4/4 Patient: Uzma Ramirez [id number] (Continued) Specimen: [id number] Received: 02/05/24 (Continued) Pathological Diagnosis (Continued) -Tubular adenomatous polyp [...] , labeled as cecal polyp, are 2 gibsno mucosal pieces of 2-4 mm in sizes [...] totally submitted in cassette D1. CPT Codes 94177 x 4 Specimen: [id number] Received: 02/05/24 Status: NASIR [place] Num: [id number] Spec Type: Surgical Subm Dr: Rehana Reinoso DO Tissues: A Colon Biopsy (SIGMOID POLYP) B Colon Biopsy (CECUM) C Colon Biopsy (DESC) D Colon Biopsy (RECTAL SIGMOID JUNCTION) Procedures: Eddie BACA/Luisana L4/4 Patient: Uzma Ramirez [id number] (Continued) (more content not included)...NormalThe [facility] Surgical PathologyOrdered By: Katherine Rubio on 62-75-5667IifWxkbojMercy Health St. Joseph Warren HospitalANTICARDIOLIPIN AB (AKASH) IGA/IGG/IGMon 80-67-6510Mwwvidfnblzgpzp Ab,IgA,Qn <0Tifetw6-07Heq [facility] CenterComment on above:Result Comment: Negative: <12 Indeterminate: 12 - 20 Low-Med Positive: >20 - 80 High Positive: >80Performed By: #### ACAQUAN #### [facility] [address] [place] [address] Dr. Myrna AntonyAnticardiolipin Ab,IgG,Qn<9Zfepcs7-49Sha [facility] CenterComment on above:Result Comment: Negative: <15 Indeterminate: 15 - 20 Low-Med Positive: >20 - 80 High Positive: >80Performed By: #### ACAQUAN #### [facility] [address] [address] [address] Myrna AntonyAnticardiolipin Ab,IgM,Qn22 MPL U/mLCritically high0-12The [facility] CenterComment on above:Result Comment: Negative: <13 Indeterminate: 13 - 20 Low-Med Positive: >20 - 80 High Positive: >80Performed By: #### ACAQUAN #### [facility] [address] [place] [address] Dr. Myrna Cardozo 81-57-2883MXI [Mass/Vol]mg/LNormal<=1.0The [facility] Medical CenterComment on above:Performed By: #### CRP #### [facility] [address] [place] [address] Dr. Myrna AntonySED RATE WESTERGRENon 40-48-0904KRP RATE32 mm/hrCritically high <=30The [facility] Medical CenterComment on above:Performed By: #### ACAQUAN #### [facility] [address] [place] [address] Dr. Myrna AntonyCBC AUTO DIFFon 77-21-9065EGSQ #0.0 103/ulNormal0.0-0.1The [facility] Medical CenterComment on above:Performed By: #### CBC #### [facility] [address] [place] [address] Dr. Myrna AntonyBasophils/100 WBC (Bld)0.5 %Normal0.2-2.0The [facility] Comment on above:Performed By: #### CBC #### [facility] [address] [place] [address] Dr. Myrna Ramachandran #0.3 103/ulNormal0.0-0.7The [facility] CenterComment on above: Performed By: #### CBC #### [facility] [address] [place] [address] Dr. Myrna Rodriguezosinophils/100 WBC (Bld)3.9 %Normal0.9-7.0The [facility] Comment on above:Performed By: #### CBC #### [facility] [address] [place] [address] Dr. Myrna Rodriguezrythrocyte distribution width (RBC) [Ratio]13.6 %Awvyzb55.0-15.0 The [facility] Medical CenterComment on above:Performed By: #### CBC #### [facility] [address] [place] [address] Dr. Myrna AntonyHematocrit (Bld) [Volume fraction]40.4 %Atnnsv92.0-48.0The [facility] Medical CenterComment on above:Performed By: #### CBC #### [facility] [address] [place] [address] Dr. Myrna AntonyHemoglobin (Bld) [Mass/Vol]13.5 g/cGAzmyzo83.0-16.0The [facility] CenterComment on above:Performed By: #### CBC #### [facility] [address] [place] [address] Dr. Myrna Adams #0.02 10e3/ulNormal0.00-0.03The [facility] CenterComment on above:Performed By: #### CBC #### [facility] [address] [place] [address] Dr. Myrna Adams %0.2 %Normal0.0-0.5The [facility] CenterComment on above: Performed By: #### CBC #### [facility] [address] [place] [address] Dr. Myrna Huddleston #1.5 103/ulNormal1.2-3.8The [facility] CenterComment on above:Performed By: #### CBC #### [facility] [address] [place] [address] Dr. Myrna Kennedyhocytes/100 WBC (Bld)19.2 %Critically low20.5-60.0The [facility] CenterComment on above:Performed By: #### CBC #### [facility] [address] [place] [address] Dr. Myrna Dueñas DIFF REQNONormalThe [facility] Medical CenterComment on above: Performed By: #### CBC #### [facility] [address] [place] [address] Dr. Myrna Mccarty (RBC) [Entitic mass]29.7 afWiathf82.7-34.0The [facility] CenterComment on above:Performed By: #### CBC #### [facility] [address] [place] [address] Dr. Myrna Horton (RBC) [Mass/Vol]33.4 g/jKGyjdlc17.9-35.2The [facility] CenterComment on above:Performed By: #### CBC #### [facility] [address] [place] [address] Dr. Myrna Sutherland (RBC) [Entitic vol]89.0 hPGvmbtr38.0-99.0The [facility] CenterComment on above:Performed By: #### CBC #### [facility] [address] [place] [address] Dr. Myrna Olivares #0.8 103/ulNormal0.3-0.8The [facility] CenterComment on above:Performed By: #### CBC #### [facility] [address] [place] [address] Dr. Myrna Trammellocytes/100 WBC (Bld)10.2 %Normal1.7-12.0The [facility] Comment on above:Performed By: #### CBC #### [facility] [address] [place] [address] Dr. Myrna Noriega #5.3 103/ulNormal1.4-6.5The [facility] CenterComment on above:Performed By: #### CBC #### [facility] [address] [place] [address] Dr. Myrna Kingutrophils/100 WBC (Bld)66.0 %Ehrhvc34.0-75.0The [facility] CenterComment on above:Performed By: #### CBC #### [facility] [address] [place] [address] Dr. Myrna AntonyPlatelet mean volume (Bld) [Entitic vol]9.2 fLCritically low 9.5-13.5The [facility] CenterComment on above:Performed By: #### CBC #### [facility] [facility] [address] [place] [address] Dr. Myrna AntonyPLT277 103/wdEcdhss136-630Wse [facility] CenterComment on above: Performed By: #### CBC #### [facility] [address] [place] [address] Dr. Myrna AntonyRBC4.54 106/ulNormal4.20-5.40The [facility] CenterComment on above:Performed By: #### CBC #### [facility] [address] [place] [address] Dr. Myrna AntonyWBC8.0 103/ulNormal4.0-11.0The [facility] CenterComment on above: Performed By: #### CBC #### [facility] [address] [place] [address] Dr. Myrna AntonyLIPID PROFILEon 08-70-1193BCCI-HDL RATIO NORMSEE BELOWBerger HospitalComment on above:Result Comment: 3.3 - 4.4 LOW RISK 4.4 - 7.1 AVERAGE RISK 7.1 - 11.0 MODERATE RISK >11.0 HIGH RISKPerformed By: #### ACAQUAN #### [facility] [address] [address] [address] Myrna AntonyCholesterol [Mass/Vol]192 mg/dLNormal<=200[facility] Comment on above:Performed By: #### ACAQUAN #### [facility] [address] [address] [address] Myrna AntonyCholesterol in HDL [Mass/Vol]69 mg/dLCritically dsqe45-73OdqZanesville City HospitalComment on above:Performed By: #### ACAQUAN #### [facility] [address] [place] [address] Dr. Myrna AntonyCholesterol in LDL [Mass/Vol]99.8 mg/dLBerger HospitalComment on above:Performed By: #### ACAQUAN #### [facility] [address] [place] [address] Dr. Myrna AntonyCholestermayra.total/Cholesterol in HDL [Mass ratio]2.8 {ratio} NormalZanesville City HospitalComment on above:Performed By: #### ACAQUAN #### [facility] [address] [place] [address] Dr. Myrna AntonyHDJt NORMAL> or = 60 mg/dl - LOW CARDIOVASCULAR RISK <40 mg/dl - HIGH CARDIOVASCULAR RISKBerger HospitalComment on above:Performed By: #### ACAQUAN #### [facility] [address] [place] [address] Dr. Myrna AntonyLDL CALC NORMALSEE BELOWBerger HospitalComment on above:Result Comment: <100 mg/dl OPTIMAL 100 - 129 mg/dl NEAR OR ABOVE OPTIMAL 130 - 159 mg/dl BORDERLINE HIGH 160 - 189 mg/dl HIGH >190 mg/dl VERY HIGH Performed By: #### ACAQUAN #### [facility] [address] [place] [address] Dr. Myrna AntonyTriglyceride [Mass/Vol]116 mg/dLNormal<=150[facility] Comment on above:Performed By: #### ACAQUAN #### [facility] [address] [address] [address] Myrna AntonyVLDL CALC23.2 mg/dLNormalThe [facility] CenterComment on above: Performed By: #### ACAQUAN #### [facility] [address] [address] [address] Myrna AntonyPROF 14(COMP METB)on 04-47-9342Agymdnv [Mass/Vol]3.9 g/dLNormal 3.4-5.0The [facility] HospitalComment on above:Performed By: #### ACAQUAN #### [facility] [address] [address] [address] Myrna AntonyAlbumin/Globulin [Mass ratio]1.1 {ratio}NormalThe [facility] CenterComment on above:Performed By: #### ACAQUAN #### [facility] [address] [place] [address] Dr. Myrna BullockP [Catalytic activity/Vol]57 U/FHpjzsc35-530Qob [facility] CenterComment on above:Performed By: #### ACAQUAN #### [facility] [address] [address] [address] Myrna Oliver [Catalytic activity/Vol]39 U/FHlvdto62-64Tcf [facility] CenterComment on above:Performed By: #### ACAQUAN #### [facility] [address] [place] [address] Dr. Myrna Neville gap [Moles/Vol]12.7 mmol/LNormalThe [facility] Comment on above:Performed By: #### ACAQUAN #### [facility] [address] [place] [address] Dr. Myrna AntonyAST [Catalytic activity/Vol]32 U/QAqfhtv41-78Xie [facility] CenterComment on above:Performed By: #### ACAQUAN #### [facility] [address] [address] [address] Myrna AntonyBilirubin [Mass/Vol]1.4 mg/dLCritically high0.2-1.0The [facility] CenterComment on above:Performed By: #### ACAQUAN #### [facility] [address] [address] [address] Myrna AntonyCalcium [Mass/Vol]9.6 mg/dLNormal8.5-10.1The [facility] Comment on above:Performed By: #### ACAQUAN #### [facility] [address] [address] [address] Myran AntonyChloride [Moles/Vol]103 mmol/BPpqpjh16-442Fef [facility] Comment on above:Performed By: #### ACAQUAN #### [facility] [address] [address] [address] Myrna AntonyCO2 [Moles/Vol]26.5 mmol/HCdotyy23.0-32.0The [facility] Comment on above:Performed By: #### ACAQUAN #### [facility] [address] [address] [address] Myrna AntonyCreatinine [Mass/Vol]1.06 mg/dLCritically high0.55-1.02[facility] HospitalComment on above:Performed By: #### ACAQUAN #### [facility] [address] [address] [address] Norris ChangEGFR-AF MALAGASY>60Normal>=60The [facility] CenterComment on above:Performed By: #### ACAQUAN #### [facility] [address] [address] [address] Myrna RodriguezGFR-NON AF PUXTZVDL12 mL/min/1.82n4Nzrvhgswjf low>=60The [facility] CenterComment on above:Performed By: #### ACAQUAN #### [facility] [address] [address] [address] Myrna AntonyGlobulin (S) [Mass/Vol]3.6 g/dLNormalThe [facility] CenterComment on above:Performed By: #### ACAQUAN #### [facility] [address] [address] [address] Myrna AntonyGlucose [Mass/Vol]104 mg/jQZfwksr32-453Zrw [facility] Comment on above:Performed By: #### ACAQUAN #### [facility] [address] [address] [address] Myrna AntonyPotassium [Moles/Vol]4.2 mmol/LNormal3.5-5.1The [facility] Comment on above:Performed By: #### ACAQUAN #### [facility] [address] [address] [address] Myrna AntonyProtein [Mass/Vol]7.5 g/dLNormal6.4-8.2The [facility] Comment on above:Performed By: #### ACAQUAN #### [facility] [address] [place] [address] Dr. Myrna AntonySodium [Moles/Vol]138 mmol/DYwrgei162-269Zvz [facility] Comment on above:Performed By: #### ACAQUAN #### [facility] [address] [place] [address] Dr. Myrna AntonyUrea nitrogen [Mass/Vol]29.0 mg/dLCritically high7.0-18.0[facility] HospitalComment on above:Performed By: #### ACAQUAN #### [facility] [address] [place] [address] Dr. Myrna Lawson nitrogen/Creatinine [Mass ratio]27.4 mg/mgNormalThe [facility] CenterComment on above:Performed By: #### ACAQUAN #### [facility] [address] [place] [address] Dr. Myrna AntonyCovid-19 PCR ([facility]VDBOST[facility])on 66-86-4011WFYN-CoV-2 (COVID-19) RNA NEO+probe Ql (Unsp spec)Not detectedNormalNOT DETECTEDThe [facility] Comment on above:Result Comment: This test is not yet approved or cleared by the [place] FDA. When there are no FDA-approved or cleared tests available, and other criteria are met, FDA can make tests available under an emergency access mechanism called an Emergency Use Authorization (EUA). The EUA for this test is supported by the Blood Bank Worker of Health and Human Service's (HHS's) declaration that circumstances exist to justify the emergency use of in vitro diagnostics for the detection and/or diagnosis of the virus that causes COVID- 19. This EUA will remain in effect (meaning [...] of clinical signs and symptoms consistent with SARS-CoV-2.Performed By: #### CVDTBH #### [facility] [address] [place] [address] Dr. Myrna AntonyANTICARDIOLIPIN AB (AKASH) IGA/IGG/IGMon 47-89-0693Ftjobizjvgwndho Ab,IgA,Qn<7Zofgvl4-12UbaOhioHealth Dublin Methodist Hospitalment on above:Result Comment: Negative: <12 Indeterminate: 12 - 20 Low-Med Positive: >20 - 80 High Positive: >80Performed By: #### ACAQUAN #### [facility] [address] [place] [address] Dr. Myrna AntonyAnticardiolipin Ab,IgG,Qn<2Uvfaav7-63Vkb [facility] CenterComment on above:Result Comment: Negative: <15 Indeterminate: 15 - 20 Low-Med Positive: >20 - 80 High Positive: >80Performed By: #### ACAQUAN #### [facility] [address] [place] [address] Dr. Myrna AntonyAnticardiolipin Ab,IgM,Qn57 MPL U/mLCritically high0-12The [facility] Andersonment on above:Result Comment: Negative: <13 Indeterminate: 13 - 20 Low-Med Positive: >20 - 80 High Positive: >80Performed By: #### ACAQUAN #### [facility] [address] [place] [address] Dr. Myrna Cardozo 56-56-5329UDB [Mass/Vol]mg/LNormal<=1.0The [facility] Andersonment on above:Performed By: #### CRP #### [facility] [address] [address] [address] Myrna Anders RATE WESTERGRENon 90-74-9712EUS RATE39 mm/hrCritically high <=30The [facility] CenterComment on above:Performed By: #### SEDR #### [facility] [address] [place] [address] Dr. Myrna AntonyCOVID/FLU RT-PCRon 38-45-6925GHVC-CoV-2 (COVID-19) RNA NEO+probe Ql (Unsp spec)NegativeNost. louis [facility] Search123 Other COVID/FLU RT-PCRPositivePortapure Other COVID/FLU RT-PCRNegativePortapure Other LIPID PROFILEon 61-11-9415LOFD-HDL RATIO NORMSEE BELOW NormalThe [facility] on above:Result Comment: 3.3 - 4.4 LOW RISK 4.4 - 7.1 AVERAGE RISK 7.1 - 11.0 MODERATE RISK >11.0 HIGH RISKPerformed By: #### ACAQUAN #### [facility] [address] [place] [address] Dr. Myrna Ramosesterol [Mass/Vol]177 mg/dLNormal<=200The [facility] Comment on above:Performed By: #### ACAQUAN #### [facility] [address] [place] [address] Dr. Myrna Ramosesterol in HDL [Mass/Vol]70 mg/dLCritically szvt84-96Eei [facility] CenterComment on above:Performed By: #### ACAQUAN #### [facility] [address] [place] [address] Dr. Myrna Ramosesterol in LDL [Mass/Vol]92.4 mg/dLNormalThe [facility] CenterComascension river district hospital on above:Performed By: #### ACAQUAN #### [facility] [address] [place] [address] Dr. Myrna Leon.total/Cholesterol in HDL [Mass ratio]2.5 {ratio} NormalThe Fab HospitalComment on above:Performed By: #### ACAQUAN #### [facility] [address] [address] [address] Myrna Martinez NORMAL> or = 60 mg/dl - LOW CARDIOVASCULAR RISK <40 mg/dl - HIGH CARDIOVASCULAR RISKBerger HospitalComment on above:Performed By: #### ACAQUAN #### [facility] [address] [place] [address] Dr. Myrna AntonyLDL CALC NORMALSEE BELOWBerger HospitalComment on above:Result Comment: <100 mg/dl OPTIMAL 100 - 129 mg/dl NEAR OR ABOVE OPTIMAL 130 - 159 mg/dl BORDERLINE HIGH 160 - 189 mg/dl HIGH >190 mg/dl VERY HIGH Performed By: #### ACAQUAN #### [facility] [address] [place] [address] Dr. Myrna AntonyTriglyceride [Mass/Vol]73 mg/dLNormal<=150[facility] Comment on above:Performed By: #### ACAQUAN #### [facility] [address] [address] [address] Myrna Guzman CALC14.6 mg/dLNoBethesda North HospitalComment on above: Performed By: #### ACAQUAN #### [facility] [address] [place] [address] Dr. Myrna Horne 24-60-7191YFY [Catalytic activity/Vol]34 U/SIxqdyz94-49Uwa [facility] on above:Performed By: #### ACAQUAN #### [facility] [address] [place] [address] Dr. Myrna Andino 16-97-7505QWC [Catalytic activity/Vol]44 U/SMtznvp38-87Ocn [facility] on above:Performed By: #### ACAQUAN #### [facility] [address] [place] [address] Dr. Myrna Williamson Visit (Cardiology)on 84-82-4327Qusmwm-up visit Diagnoses/Problems Assessed Essential hypertension (401.9) (I10) Hyperlipidemia, unspecified (272.4) (E78.5) Sinus bradycardia (427.89) (R00.1) Former smoker (V15.82) (Z87.891) Overweight (278.02) (E66.3) Orders Hyperlipidemia, unspecified Renew: Rosuvastatin Calcium 40 MG Oral Tablet; TAKE 1 TABLET DAILY ALT - Alanine Aminotransferase, Serum; Status:Active; Requested for:13Mlg0325; AST; Status:Active; Requested for:69Pxy3812; Lipid Panel; Status:Active; Requested for:86Hfl7194; SocHx: Former smoker Tobacco Use Screening; Status:Complete; Done: 28Tbx8187 Patient Instructions Please bring all medicines, vitamins, [...] prednisone managed by rheumatology Lei Perez MD, [facility] Active Problems Problems Essential hypertension (401.9) [...] negative for complaint. Vitals Vital Signs Recorded: 22Yzf8356 01:49PM Heart Rate66, L Radial Ecdyksrg538, RUE, Sitting Dkqcpepbe67, RUE, Sitting Height5 ft 6 in Tobacco Useb) No PHQ-2 #1. Over the last 2 weeks have you felt down, depressed or hopeless? (If yes, answer PHQ-9 below)No PHQ-2 #2. Over the last 2 weeks have you felt little interest or pleasure in doing things? (If yes,answer PHQ-9 below)No Falls Screening (Age 18+)a) No falls within the last year Physical Exam Constitutional: alert and in no acute distress. Neck: neck is supple, symmetric, trachea midl (more content not included)... NormalUH TouchworksTobacco Screening.on 85-22-0761Vixml depression screening assessmentNoTri-[facility] [employer]12 DO Work Phone: Fall risk assessmenta) No falls within the last year [facility] [employer] DO Work Phone: Tobacco use status CPHSb) NoMWillapa Harbor Hospital [employer] DO Work Phone: Activated partial thromboplastin time (aPTT) in platelet poor plasma by coagulation aOrdered By: Teetee Rizvi on 38-53-3283cVIB Coag (PPP) [Time]28.8 s25.1-36.5FCleveland Clinic Euclid HospitalAlbumin [Mass/volume] in Serum or PlasmaOrdered By: Teetee Rizvi on 87-11-5917Vvqbulb [Mass/Vol]3.7 g/dL3.2-5.5FCleveland Clinic Euclid HospitalAutomated erythrocytes count in urine sediment (number/area)Ordered By: Teetee Rizvi on 81-23-0541IYC Auto (Urine sed) [#/Area]5-9 [HPF]0-4FCleveland Clinic Euclid HospitalAutomated leukocytes count in urine sediment (number/area)Ordered By: Teetee Rizvi on 59-32-1792GUI Auto (Urine sed) [#/Area]1-2 [HPF]0-4FCleveland Clinic Euclid HospitalBilirubin Test strip Ql (U)Ordered By: Teetee Rizvi on 87-51-2874Urwmicxvu Ql (U)NegativeNegWayne HospitalBlood hemoglobin measurement (mass/volume)Ordered By: Teetee Rizvi on 00-48-9278Dvxctelvqh (Bld) [Mass/Vol]12.6 g/dL11.8-15.4FCleveland Clinic Euclid HospitalColor Auto (U) Ordered By: Teetee Rizvi on 69-60-1131Kzxxs (U)YellowYellowLutheran HospitalCreatinine [Mass/volume] in UrineOrdered By: Teetee Rizvi on 51-93-6979Ehzipublzr (U) [Mass/Vol]235.6 mg/dLLutheran Hospital Comment on above:No reference range establishedCreatinine and Glomerular filtration rate.predicted panel (S/P/Bld)Ordered By: Teetee Rizvi on 07-04-2022 Creatinine [Mass/Vol]0.76 mg/dL0.44-1.03[facility] Erythrocyte distribution width Auto (RBC) [Ratio]Ordered By: Teetee Rizvi on 39-23-1304Xkubalgcbki distribution width (RBC) [Ratio]14.1 %11.9-15.3FCleveland Clinic Euclid HospitalEstimated glomerular filtration rate (GFR) non- AmericanOrdered By: Teetee Rizvi on 94-67-7796SEY/1.73 sq M.predicted among non- blacks MDRD (S/P/Bld) [Vol rate/Area]> 60 mL/MinLutheran HospitalGlobulin Calc (S) [Mass/Vol]Ordered By: Teetee Rizvi on 19-41-3571Mmharhfs (S) [Mass/Vol]3.1 g/dLLutheran HospitalHematocrit Auto (Bld) [Volume fraction]Ordered By: Teetee Rizvi on 40-45-7778Hndatjmrua (Bld) [Volume fraction]38.3 %34.0-46.4FCleveland Clinic Euclid HospitalHepatitis B virus surface Ag [Presence] in Serum or Plasma by ImmunoassayOrdered By: Teetee Rizvi on 56-37-6513KAQ surface Ag IA QlNegativeNegWayne HospitalComment on above:Performed at: CB - [address] [id number] [employer]: Cody Williamson PhD, Phone: [phone] Auto test strip (U) [Mass/Vol]Ordered By: Teetee Rizvi on 87-49-7209Qeuifjb (U) [Mass/Vol]Trace NegativeLutheran HospitalLaboratory - CoagulationOrdered By: Teetee Rizvi on 43-10-8137HN Coag (PPP) [Time]10.1 s9.0-12.9L[facility] HospitalLaboratory - UrinalysisOrdered By: Teetee Rizvi on 07-04-2022 Hyaline casts LM Ql (Urine sed)9-19 [LPF]0-8[facility] Auto (RBC) [Entitic mass]Ordered By: Teetee Rizvi on 17-13-5335ONG (RBC) [Entitic mass]29.1 pg24.7-34.3FTriHealth Good Samaritan HospitalHC Auto (RBC) [Mass/Vol]Ordered By: Teetee Rizvi on 78-07-2251SMTX (RBC) [Mass/Vol]32.8 g/dL 32.0-35.0[facility] - WestV Auto (RBC) [Entitic vol]Ordered By: Teetee Rizvi on 94-46-4625WHR (RBC) [Entitic vol]88.7 sR01-144RidehsqjnLutheran HospitalNitrite Test strip Ql (U)Ordered By: Teetee Rizvi on 28-76-8664Myzpjya Ql (U)NegativeNegativeLutheran HospitalNo Panel InformationOrdered By: Teetee Rizvi on 76-94-877651307159-Mhgmkyv Vitamin D Total42.1 ng/mV80-830FqwyqwmcdLutheran HospitalComment on above:VITAMIN D STATUS 25(OH)VITAMIN D RANGE (ng/mL) Deficient <20 Insufficient 20 to <30 Sufficient 30 to 100 Reference: Vero MF,Nara TRAMMELL, Darius RHODES, et al. Evaluation,treatment, and prevention of vitamin D deficiency; an Endocrine Society clinical practice guideline. JCEM. 2010; 96(7):1911-30.Estimated GFR ()> 60 mL/MinLutheran HospitalComment on above: GFR estimated reference range: According to KDOQI guidelines, <60 ml/min/1.73m2 is sufficient todiagnose a patient with chronic kidney disease.Pharmacy Creatinine Clearance (Chem76.30Lutheran HospitalPlatelet mean volume Auto (Bld) [Entitic vol]Ordered By: Teetee Rizvi on 82-50-1371Jlamvyqa mean volume (Bld) [Entitic vol]8.0 fL6.3-10.7FCleveland Clinic Euclid Hospital Platelet poor plasma international normalized ratio (INR) by coagulation assay (relatOrdered By: Teetee Rizvi on 81-88-3259VMQ Coag (PPP) [Relative time]0.9 {INR}Lutheran HospitalComment on above:INR Therapeutic Range A) Pre- and Peroperative OAT started two weeks before surgery. NOT HIP SURGERY: 1.5 - 2.5 HIP SURGERY: 2 - 3 B) Primary and secondary prevention of venous THROMBOSIS: 2 - 3 C) Active venous thrombosis, pulmonary embolism and prevention of recurrent venous thrombosis: 2 - 3 D) Prevention of arterial thromboembolism including patients with mechanical heart valves: 3 - 4.5Platelets Auto (Bld) [#/Vol]Ordered By: Teetee Rizvi on 42-44-9612Owbvznybh (Bld) [#/Vol]269 10*3/uL 150-450Lutheran HospitalProtein Auto test strip (U) [Mass/Vol] Ordered By: Teetee Rizvi on 22-39-1143Tvymjas (U) [Mass/Vol]100 mg/dLNegative Lutheran HospitalProtein [Mass/volume] in Serum or PlasmaOrdered By: Teetee Rizvi on 71-29-9138Oohltvs [Mass/Vol]6.8 g/dL6.1-7.9Lutheran HospitalProtein [Mass/volume] in UrineOrdered By: Teetee Rizvi on 13-66-1015Orlskup (U) [Mass/Vol]61 mg/dL0-9Lutheran HospitalRBC Auto (Bld) [#/Vol]Ordered By: Teetee Rizvi on 08-01-8089QWD (Bld) [#/Vol]4.32 10*6/uL3.60-5.00Flower Hospitalerum or plasma alanine aminotransferase measurement without P-5'-P (enzymatic activiOrdered By: Teetee Rizvi on 03-68-8722IYI No additional P-5'-P [Catalytic activity/Vol]20 U/L 10-60Flower Hospitalerum or plasma albumin/globulin mass ratioOrdered By: Teetee Rizvi on 67-30-4639Xpwmrjq/Globulin [Mass ratio]1.2 {ratio}Flower Hospitalerum or plasma alkaline phosphatase measurement (enzymatic activity/volume)Ordered By: Teetee Rizvi on 40-07-5731WKO [Catalytic activity/Vol]61 U/L80-81FfhsrzlerFlower Hospitalerum or plasma anion gap determinationOrdered By: Teetee Rizvi on 80-33-6333Ltpie gap [Moles/Vol]13.7 mmol/L6.0-15.0Flower Hospitalerum or plasma aspartate aminotransferase measurement (enzymatic activity/volume)Ordered By: Teetee Rizvi on 42-79-4185BSA [Catalytic activity/Vol]22 U/C30-21RlzvumcekFlower Hospitalerum or plasma calcium measurement (mass/volume)Ordered By: Teetee Rizvi on 38-49-1355Dawisar [Mass/Vol]8.9 mg/dL8.2-10.2FSelect Medical OhioHealth Rehabilitation Hospital - Dublinerum or plasma chloride measurement (moles/volume) Ordered By: Teetee Rizvi on 14-44-0094Zaxynitn [Moles/Vol]106 mmol/L95-114 Flower Hospitalerum or plasma complement C3 measurement (mass/volume)Ordered By: Teetee Rizvi on 20-54-7390Uuxgcgkmiu C3 [Mass/Vol]144 mg/uL43-944JwphkqwriLutheran HospitalComment on above:Performed at: [address] [id number] [employer]: Cody Williamson PhD, Phone: [phone] or plasma complement C4 measurement (mass/volume)Ordered By: Teetee Rizvi on 68-39-4131Ztrxwrytjb C4 [Mass/Vol]22 mg/fP41-56HwnzyynebFlower Hospitalerum or plasma free cefuroxime measurement (mass/volume)Ordered By: Teetee Rizvi on 07-04-2022 Cefuroxime free [Mass/Vol]NegativeNegativeLutheran Hospital Comment on above:Performed at: - Labco[address] [id number] [employer]: Cody Williamson PhD, Phone: [phone] or plasma glucose measurement (mass/volume)Ordered By: Teetee Rizvi on 53-92-1956Wwzfmyn [Mass/Vol]119 mg/sU05-769GghyxvgsvLutheran HospitalComment on above:ADA recommended reference range Random Glucose Reference Range is dependent on time and content of last meal. Glucose of more than 200 mg/dL in a nonstressed, ambulatory subject supports the diagnosis of Diabetes Mellitus.Serum or plasma intact parathyroid hormone measurement (mass/volume)Ordered By: Teetee Rizvi on 46-25-0179Qcycxudleh.intact [Mass/Vol]80.6 pg/oA14-49QoyqfudeoFlower Hospitalerum or plasma potassium measurement (moles/volume)Ordered By: Teetee Rizvi on 07-04-2022 Potassium [Moles/Vol]3.8 mmol/L3.5-5.1FSelect Medical OhioHealth Rehabilitation Hospital - Dublinerum or plasma sodium measurement (moles/volume)Ordered By: Teetee Rizvi on 07-04-2022 Sodium [Moles/Vol]139 mmol/T847-658AmcsemxrvFlower Hospitalerum or plasma total bilirubin measurement (mass/volume)Ordered By: Teetee Rizvi on 84-01-9198Uvbmchhkm [Mass/Vol]1.6 mg/dL0.3-1.2FCleveland Clinic [facility]ucl[facility] Comment on above:Samples from patients who have taken Naproxen have shown spurious elevation in Total Bilirubin levels. A metabolite of Naproxen, O- desmethylnaproxen, has been shown to interfere with the Carmen-William method for measuring Total Bilirubin.Serum or plasma total carbon dioxide measurement (moles/volume)Ordered By: Teetee Rizvi on 41-23-7101SA7 [Moles/Vol]23.1 mmol/L 22.0-30.0Flower Hospitalerum or plasma urea nitrogen measurement (mass/volume)Ordered By: Teetee Rizvi on 27-40-7189Sbmq nitrogen [Mass/Vol]15 mg/dL9-23Flower Hospitalerum or plasma uric acid measurement (mass/volume)Ordered By: Teetee Rizvi on 70-47-7305Prfdy [Mass/Vol] 5.1 mg/dL2.6-7.2FSelect Medical OhioHealth Rehabilitation Hospital - Dublinpecific gravity Auto test strip (U) [Rel density]Ordered By: Teetee Rizvi on 05-28-7908Zerpieig gravity (U) [Rel density]1.0211.001-1.030Flower Hospitalquamous epithelial cells detection in urine sediment by light microscopyOrdered By: Teetee Rizvi on 50-95-0400Fqvptyriqc cells.squamous LM Ql (Urine sed)1-2 [HPF]0-2 Luther[facility] HospitalUrine bacteria detection by automated method Ordered By: Teetee Rizvi on 65-12-6275Ghkklguz Auto Ql (U)None seenNone Seen Lutheran HospitalUrine clarity by refractometry automatedOrdered By: Teetee Rizvi on 22-67-2660Kjmlifd Refractometry automated (U)ClearClear Lutheran HospitalUrine glucose measurement by automated test strip (mass/volume)Ordered By: Teetee Rizvi on 84-70-7376Mwsihck Auto test strip (U) [Mass/Vol]Normal mg/dLNormalLutheran HospitalUrine hemoglobin detection by automated test stripOrdered By: Teetee Rizvi on 98-27-1492Ktkjwnkxme Auto test strip Ql (U)NegativeNegativeLutheran HospitalUrine leukocyte esterase detection by automated test stripOrdered By: Teetee Rizvi on 43-64-1293Qfoqnacmp esterase Auto test strip Ql (U)Negative NegativeLutheran HospitalUrine protein/creatinine ratioOrdered By: Teetee Rizvi on 49-86-3303Wxuxsko/Creatinine (U) [Ratio]259 mg/g{Cre}0-200 Lutheran HospitalUrine sediment renal epithelial cell count by microscopy (number/high power field)Ordered By: Teetee Rizvi on 07-04-2022 Epithelial cells.renal LM.HPF (Urine sed) [#/Area]None seen [HPF]0-1FCleveland Clinic Euclid HospitalUrobilinogen Auto test strip (U) [Mass/Vol]Ordered By: Teetee Rizvi on 80-66-7464Fkobnijvjeet (U) [Mass/Vol]Normal mg/dLNormalLutheran HospitalWBC Auto (Bld) [#/Vol]Ordered By: Teetee Rizvi on 33-58-8298DCA (Bld) [#/Vol]6.9 10*3/uL3.8-11.6FCleveland Clinic Euclid Hospital pH Auto test strip (U)Ordered By: Teetee Rizvi on 04-97-0184yE (U)6.5 [pH] 5.0-9.0Lutheran HospitalANTICARDIOLIPIN AB (AKASH) IGA/IGG/IGMon 41-18-3611Nlkxvvxvmbjghxx Ab,IgA,Qn<7Vvwswe3-81Rcj [facility] CenterComment on above:Result Comment: Negative: <12 Indeterminate: 12 - 20 Low-Med Positive: >20 - 80 High Positive: >80Performed By: #### ACAQUAN #### [facility] [address] [place] [address] Dr. Myrna AntonyAnticardiolipin Ab,IgG,Qn<4Estvng8-25Pjp [facility] CenterComment on above:Result Comment: Negative: <15 Indeterminate: 15 - 20 Low-Med Positive: >20 - 80 High Positive: >80Performed By: #### ACAQUAN #### [facility] [address] [place] [address] Dr. Myrna AtnonyAnticardiolipin Ab,IgM,Qn44 MPL U/mLCritically high0-12The [facility] Medical CenterComment on above:Result Comment: Negative: <13 Indeterminate: 13 - 20 Low-Med Positive: >20 - 80 High Positive: >80Performed By: #### ACAQUAN #### [facility] [address] [place] [address] Dr. Myrna Cardozo 74-92-1576AWW [Mass/Vol]mg/LNormal<=1.0The Fab HospitalComment on above:Performed By: #### CRP #### [facility] [address] [address] [address] Myrna AntonyMG MAMM SCREEN 3D YAYO CADon 57-83-5406VJ MAMM SCREEN 3D YAYO CAD Patient: UZMA RAMIREZ Exam Date: 07/02/2022 : 1955 Gender:F Ordering : DR ERROL CORBIN M.D. Admission #: [id number] Family : DR FLORINDA FLOWERS M.D. Order #: [id number] CLICK HERE TO VIEW EXAM RADIOLOGY REPORT [...] uterine cancer at age 63. LOCATION: [facility] BREAST COMPOSITION: Scattered areas fibroglandular density. FINDINGS: [...] by: Edward Bobo MD on 07/02/2022 at 11:05NoMercy Health St. Charles HospitalED RATE WESTERGRENon 59-78-4108LOZ RATE37 mm/hrCritically high<=30The [facility] Medical CenterComment on above:Performed By: #### SEDR #### [facility] [address] [place], [place] [address] Dr. Myrna AntonyAutomated erythrocytes count in urine sediment (number/area) Ordered By: Ryan Ortiz on 03-96-9283GEE Auto (Urine sed) [#/Area]20-49 [HPF] Lutheran HospitalAutomated leukocytes count in urine sediment (number/area)Ordered By: Ryan Ortiz on 97-40-0963VEZ Auto (Urine sed) [#/Area]3-4 [HPF]Lutheran HospitalAutomated urine hyaline casts count (number/volume)Ordered By: Ryan Ortiz on 87-98-4774Vfurdyt casts Auto (U) [#/Vol]None seen [LPF]Lutheran HospitalBilirubin Test strip Ql (U)Ordered By: Ryan Ortiz on 45-35-9813Uujsijiqq Ql (U)NegativeNegative Lutheran HospitalCast typing in urine sediment by light microscopyOrdered By: Ryan Ortiz on 22-56-3662Gxugf LM Nom (Urine sed)None seen [LPF]None SeenLutheran HospitalColor Auto (U)Ordered By: Ryan Ortiz on 88-96-4266Apnig (U)Dark yellowYellowLutheran HospitalCreatinine and Glomerular filtration rate.predicted panel (S/P/Bld) Ordered By: Ryan Ortiz on 89-82-3971Lyvikklwug [Mass/Vol]1.02 mg/dL0.44-1.03 Lutheran HospitalErythrocyte sedimentation rate by Photometric methodOrdered By: Ryan Ortiz on 87-48-4726QWP Photometric method (Bld) [Velocity]29 mm/hr0-29Lutheran HospitalEstimated glomerular filtration rate (GFR) non- AmericanOrdered By: Ryan Ortiz on 94-45-6424PMY/1.73 sq M.predicted among non-blacks MDRD (S/P/Bld) [Vol rate/Area]54 mL/MinLutheran HospitalKetones Auto test strip (U) [Mass/Vol]Ordered By: Ryan Ortiz on 17-78-5940Gfxyltx (U) [Mass/Vol]Trace NegativeLutheran HospitalMucus LM Ql (Urine sed)Ordered By: Ryan Ortiz on 87-23-3593Wizod Ql (Urine sed)2+ [LPF]Lutheran HospitalNitrite Test strip Ql (U)Ordered By: Ryan Ortiz on 03-19-2022 Nitrite Ql (U)NegativeNegWayne HospitalNo Panel InformationOrdered By: Ryan Ortiz on 55-71-2356Tijwrbnwc GFR ()> 60 mL/MinLutheran HospitalComment on above:GFR estimated reference range: According to KDOQI guidelines, <60 ml/min/1.73m2 is sufficient todiagnose a patient with chronic kidney disease.Pharmacy Creatinine Clearance (ChemN/[facility] HospitalProtein Auto test strip (U) [Mass/Vol]Ordered By: Ryan Ortiz on 73-56-6889Ronbmqr (U) [Mass/Vol]100 mg/dLNegKettering Health Troyerum or plasma C reactive protein measurement (mass/volume)Ordered By: Ryan Ortiz on 09-61-6082OCM [Mass/Vol] 0.9 mg/dL0.0-1.0Flower Hospitalerum or plasma urea nitrogen measurement (mass/volume)Ordered By: yRan Ortiz on 66-46-8784Nkwy nitrogen [Mass/Vol]28 mg/dL9-23Flower Hospitalpecific gravity Auto test strip (U) [Rel density]Ordered By: Ryan Ortiz on 45-47-2845Wklnmfpp gravity (U) [Rel density]1.0261.001-1.030[facility] Squamous epithelial cells detection in urine sediment by light microscopyOrdered By: Ryan Ortiz on 69-25-7821Zdwbagzugy cells.squamous LM Ql (Urine sed)3-4 [HPF]Lutheran HospitalUrine bacteria detection by automated methodOrdered By: Ryan Ortiz on 18-67-9839Iprywarg Auto Ql (U)None seenNone SeenLutheran HospitalUrine clarity by refractometry automated Ordered By: Ryan Ortiz on 67-50-5754Kwheoug Refractometry automated (U)Clear ClearLutheran HospitalUrine glucose measurement by automated test strip (mass/volume)Ordered By: Ryan Ortiz on 27-30-2815Vaqdcwl Auto test strip (U) [Mass/Vol]Normal mg/dLNormalLutheran Hospital Urine hemoglobin detection by automated test stripOrdered By: Ryan Adkinsrow on 58-39-7491Upcnnjacuh Auto test strip Ql (U)NegativeNegativeLutheran HospitalUrine leukocyte esterase detection by automated test stripOrdered By: Ryan Adkinsrow on 26-41-2286Mlvqvesqn esterase Auto test strip Ql (U)1+ NegativeLutheran HospitalUrine sediment renal epithelial cell count by microscopy (number/high power field)Ordered By: Ryan Ortiz on 04-76-3344Bwoshlrfyd cells.renal LM.HPF (Urine sed) [#/Area]None seen [HPF] Lutheran HospitalUrobilinogen Auto test strip (U) [Mass/Vol] Ordered By: Ryan Ortiz on 04-70-1518Fxgqvshnyhjr (U) [Mass/Vol]Normal mg/dL NormalLutheran HospitalpH Auto test strip (U)Ordered By: Ryan Ortiz on 77-99-1123yC (U)5.5 [pH]5.0-9.0Lutheran HospitalCBC W Auto Differential panel (Bld)on 36-17-7830Ytehjmgal (Bld) [#/Vol]0.04 10*3/uL Normal<0.11CKettering Health Springfield on above:Order Comment: Specimen Type: BLOOD SPECIMEN Ordering Facility: [facility] Address: [address] [place], [place] [address]Performed By: #### 43883-6 #### [facility] CLIA [id number] [address] [place] [address] 10044Ktwtofeot/100 WBC (Bld)0.4 %NormalGuernsey Memorial Hospital Comment on above:Order Comment: Specimen Type: BLOOD SPECIMEN Ordering Facility: [facility] Address: [address] [place], [place] [address]Performed By: #### 12574-3 #### [facility] CLIA [id number] [address] [place], [place] [address]Qbyqesitohxh cell count method Nom (Bld)AutoNormalCLake County Memorial Hospital - WestComascension river district hospital on above:Order Comment: Specimen Type: BLOOD SPECIMEN Ordering Facility: [facility] Address: [address]Performed By: #### 59157-2 #### [facility] CLIA [id number] [address] [place] [address] 66841Mjkoatczqst (Bld) [#/Vol]0.14 10*3/uLNormal<0.46[facility] on above:Order Comment: Specimen Type: BLOOD SPECIMEN Ordering Facility: [facility] Address: [address] [address]Performed By: #### 57049-7 #### [facility] CLIA [id number] [address] [place] [address] 12770Ruylmzxdonk/100 WBC (Bld)1.4 %NormalGuernsey Memorial Hospital Comment on above:Order Comment: Specimen Type: BLOOD SPECIMEN Ordering Facility: [facility] Address: [address] [place], [place] [address]Performed By: #### 71454-7 #### [facility] CLIA [id number] [address] [place] [address] 22237Iowqlxfbgvv distribution width (RBC) [Ratio]14.4 %Normal 11.5-15.0[facility] on above:Order Comment: Specimen Type: BLOOD SPECIMEN Ordering Facility: [facility] Address: [address] [place], [place] [address]Performed By: #### 97126-7 #### [facility] CLIA [id number] [address] [place] [address] 10814Tkslhtittt (Bld) [Volume fraction]39.7 %Yxtmxj40.0-46.0 [facility] on above:Order Comment: Specimen Type: BLOOD SPECIMEN Ordering Facility: [facility] Address: [address] [place], [place] [address]Performed By: #### 87175-3 #### [facility] CLIA [id number] [address] [place] [address] 26486Emswlivxyj (Bld) [Mass/Vol]12.7 g/zRQahlre89.5-15.5CKettering Health Springfield on above:Order Comment: Specimen Type: BLOOD SPECIMEN Ordering Facility: [facility] Address: [address] [place], [place] [address]Performed By: #### 83445-3 #### [facility] CLIA [id number] [address] [place], [place] [address]DMFDKKQU GRAN %0.3 %NormalSelect Medical [facility] on above:Order Comment: Specimen Type: BLOOD SPECIMEN Ordering Facility: [facility] Address: [address] [place], [place] [address]Performed By: #### 35002-2 #### [facility] CLIA [id number] [address] [place] [address] 85226JXVLJMCQ GRAN ABS0.03 k/uLNormal<0.10[facility] on above:Order Comment: Specimen Type: BLOOD SPECIMEN Ordering Facility: [facility] Address: [address] [place], [place] [address]Performed By: #### 66591-4 #### [facility] CLIA [id number] [address] [place] [address] 46757Ytoiyojdevw (Bld) [#/Vol]4.34 10*3/uLHigh1.00-4.00[facility] on above:Order Comment: Specimen Type: BLOOD SPECIMEN Ordering Facility: [facility] Address: [address]Performed By: #### 26219-0 #### [facility] CLIA [id number] [address] [place] [address] 79763Zvpedushigj/100 WBC (Bld)43.5 %NormalSelect Medical [facility] on above:Order Comment: Specimen Type: BLOOD SPECIMEN Ordering Facility: [facility] Address: [address] [place], [place] [address]Performed By: #### 11319-3 #### [facility] CLIA [id number] [address] [place], [place] [address]OPV (RBC) [Entitic mass]29.5 wpSckgef15.0-34.0[facility] on above:Order Comment: Specimen Type: BLOOD SPECIMEN Ordering Facility: [facility] Address: [address] [place], [place] [address]Performed By: #### 01112-5 #### [facility] CLIA [id number] [address] [place], [place] [address]JKOW (RBC) [Mass/Vol]32.0 g/kRIqktkp99.5-36.0[facility] on above:Order Comment: Specimen Type: BLOOD SPECIMEN Ordering Facility: [facility] Address: [address] [place], [place] [address]Performed By: #### 49459-1 #### [facility] CLIA [id number] [address] [place] [address] 97249NGT (RBC) [Entitic vol]92.1 wULpwyzi06.0-100.0[facility] on above:Order Comment: Specimen Type: BLOOD SPECIMEN Ordering Facility: [facility] Address: [address] [place], [place] [address]Performed By: #### 38068-4 #### [facility] CLIA [id number] [address] [place] [address] 22201Pdttqdkoj (Bld) [#/Vol]0.78 10*3/uLNormal<0.87[facility] on above:Order Comment: Specimen Type: BLOOD SPECIMEN Ordering Facility: [facility] Address: [address] [place], [place] [address]Performed By: #### 19954-5 #### [facility] CLIA [id number] [address] [place] [address] 92422Oowmpwmtk/100 WBC (Bld)7.8 %NormalGuernsey Memorial Hospital Comment on above:Order Comment: Specimen Type: BLOOD SPECIMEN Ordering Facility: [facility] Address: [address] [place], [place] [address]Performed By: #### 03791-3 #### [facility] CLIA [id number] [address] [place] [address] 90869Ojrhohxirzk (Bld) [#/Vol]4.64 10*3/uLNormal1.45-7.50[facility] on above:Order Comment: Specimen Type: BLOOD SPECIMEN Ordering Facility: [facility] Address: [address] [place], [place] [address]Performed By: #### 05046-6 #### [facility] CLIA [id number] [address] [place] [address] 29810Pfxymdftvai/100 WBC (Bld)46.6 %NormalSelect Medical [facility] on above:Order Comment: Specimen Type: BLOOD SPECIMEN Ordering Facility: [facility] Address: [address] [place], [place] [address]Performed By: #### 09692-1 #### [facility] CLIA [id number] [address] [place] [address] 10227Khnbohuma RBC (Bld) [#/Vol]10*3/uLNormal<0.01[facility] on above:Order Comment: Specimen Type: BLOOD SPECIMEN Ordering Facility: [facility] Address: [address] [place], [place] [address]Performed By: #### 20502-7 #### [facility] CLIA [id number] [address] [place] [address] 87060Uhpywfckk RBC/100 WBC (Bld) [Ratio]0.0 /100 WBCNormalCKettering Health Springfield on above:Order Comment: Specimen Type: BLOOD SPECIMEN Ordering Facility: [facility] Address: [address] [place], [place] [address]Performed By: #### 90641-6 #### [facility] CLIA [id number] [address] [place], [place] [address]Sgcvttqi mean volume (Bld) [Entitic vol]9.2 fLNormal9.0-12.7 [facility] on above:Order Comment: Specimen Type: BLOOD SPECIMEN Ordering Facility: [facility] Address: [address] [place], [place] [address]Performed By: #### 52530-9 #### [facility] CLIA [id number] [address] [place], [place] [address]Owjvoiemj (Bld) [#/Vol]301 10*3/xACkfhgc004-670LcqtqueehSelect Medical [facility] on above:Order Comment: Specimen Type: BLOOD SPECIMEN Ordering Facility: [facility] Address: [address] [place], [place] [address]Performed By: #### 95376-7 #### [facility] CLIA [id number] [address] [place] [address] 90409KZQ (Bld) [#/Vol]4.31 10*6/uLNormal3.90-5.20[facility] on above:Order Comment: Specimen Type: BLOOD SPECIMEN Ordering Facility: [facility] Address: [address] [place], [place] [address]Performed By: #### 15949-2 #### [facility] CLIA [id number] [address] [place], [place] [address]KAR (Bld) [#/Vol]9.97 10*3/uLNormal3.70-11.00[facility] on above:Order Comment: Specimen Type: BLOOD SPECIMEN Ordering Facility: [facility] Address: [address] [place], [place] [address]Performed By: #### 01837-0 #### [facility] CLIA [id number] [address] [place], [place] [address]FNCUGVkh 29-61-6129XHXZEVUxtoz (SP) Office ([place]) UZMA RAMIREZ ([id number]) 1955 F Date Time Provider Department 02/15/22 [...] Normal RADIOLOGY/OTHER STUDIES: 06/28/2021 Bilateral screening mammogram ([facility]) No significant suspicious findings in the right breast or left breast. Routine mammogram in 12 months recommended. 02/28/2021 Bone density DEXA ([facility]) Osteoporosis ASSESSMENT/PLAN: 1. Malignant neoplasm of left breast in female, estrogen receptor positive (HCC) (more content not included)...NormalGuernsey Memorial Hospital Comprehensive metabolic 2000 panelon 90-59-7714Ovhdlwd [Mass/Vol]4.5 g/dLNormal 3.9-4.9CKettering Health Springfield on above:Order Comment: Specimen Type: BLOOD SPECIMEN Ordering Facility: [facility] Address: [address] [place], [place] [address]Performed By: #### 03652-6 #### [facility] CLIA [id number] [address] [place] [address] 397[address]AMA [Catalytic activity/Vol]82 U/RJzmufv64-030EckxbwwkmSelect Medical [facility] on above:Order Comment: Specimen Type: BLOOD SPECIMEN Ordering Facility: [facility] Address: [address] [place], [place] [address]Performed By: #### 43353-4 #### [facility] CLIA [id number] [address] [place], [place] [address]NUP [Catalytic activity/Vol]29 U/LNormal7-38[facility] on above:Order Comment: Specimen Type: BLOOD SPECIMEN Ordering Facility: [facility] Address: [address] [address]Performed By: #### 00755-9 #### [facility] CLIA [id number] [address] [place] [address] 00449Aqiil gap [Moles/Vol]9 mmol/LNormal9-18[facility] on above:Order Comment: Specimen Type: BLOOD SPECIMEN Ordering Facility: [facility] Address: [address] [place], [place] [address]Performed By: #### 93594-4 #### [facility] CLIA [id number] [address] [place], [place] [address]LRQ [Catalytic activity/Vol]28 U/UGkkaux31-61FmzbyxyacSelect Medical [facility] on above:Order Comment: Specimen Type: BLOOD SPECIMEN Ordering Facility: [facility] Address: [address] [place], [place] [address]Performed By: #### 02181-3 #### [facility] CLIA [id number] [address] [place] [address] 40500Dfgatpjrp [Mass/Vol]1.1 mg/dLNormal0.2-1.3CKettering Health Springfield on above:Order Comment: Specimen Type: BLOOD SPECIMEN Ordering Facility: [facility] Address: [address]Performed By: #### 40976-9 #### [facility] CLIA [id number] [address] [place] [address] 20198Hzeofpv [Mass/Vol]9.7 mg/dLNormal8.5-10.2CKettering Health Springfield on above:Order Comment: Specimen Type: BLOOD SPECIMEN Ordering Facility: [facility] Address: [address]Performed By: #### 44078-1 #### [facility] CLIA [id number] [address] [place] [address] 28059Kqwehwgh [Moles/Vol]103 mmol/UMaanrr56-050RvwjqzlytSelect Medical [facility] on above:Order Comment: Specimen Type: BLOOD SPECIMEN Ordering Facility: [facility] Address: [address] [place], [place] [address]Performed By: #### 34083-5 #### [facility] CLIA [id number] [address] [place], [place] [address]HG6 [Moles/Vol]22 mmol/FYuvoir80-67RzguuizcpGuernsey Memorial Hospital Comment on above:Order Comment: Specimen Type: BLOOD SPECIMEN Ordering Facility: [facility] Address: [address] [place], [place] [address]Performed By: #### 62432-6 #### [facility] CLIA [id number] [address] [place] [address]45[address]Bgkrizoptq [Mass/Vol]0.82 mg/dLNormal0.58-0.96Guernsey Memorial HospitalComment on above:Order Comment: Specimen Type: BLOOD SPECIMEN Ordering Facility: [facility] Address: [address] [place], [place] [address]Performed By: #### 16140-4 #### [facility] CLIA [id number] [address] [place] [address] 23466AODZRSRLZ GLOMERULAR FILTRATION RATE79 mL/min/1.73m???Normal >=60Guernsey Memorial HospitalComment on above:Order Comment: Specimen Type: BLOOD SPECIMEN Ordering Facility: [facility] Address: [address] [place], [place] [address]Result Comment: Estimated Glomerular Filtration Rate (eGFR) is calculated using the 2020 CKD-EPI cre atinine equation. This equation utilizes serum creatinine, sex, and age as parameters. The creatinine assay has traceable calibration to isotope dilution- mass spectrometry. Refer to KDIGO guidelines for clinical interpretation. In patients with unstable renal function, e.g. those with acute kidney injury, the eGFR may not accurately reflect actual GFR.Performed By: #### 97857-9 #### [facility] CLIA [id number] [address] [place] [address] 15920Rrmkhmb [Mass/Vol]128 mg/zTPjlq12-89IcvmizqbrGuernsey Memorial Hospital Comment on above:Order Comment: Specimen Type: BLOOD SPECIMEN Ordering Facility: [facility] Address: [address] [place], [place] [address]Result Comment: The [place] [employer] (ADA) provides [...] 2016, [place] [employer]. Diabetes Care. 2016.39(Suppl 1).Performed By: #### 03212-7 #### [facility] CLIA [id number] [address] [place] [address] 16304Ssevrfmdv [Moles/Vol]3.9 mmol/LNormal3.7-5.1CKettering Health Springfield on above:Order Comment: Specimen Type: BLOOD SPECIMEN Ordering Facility: [facility] Address: [address] [place], [place] [address]Performed By: #### 19926-1 #### [facility] CLIA [id number] [address] [place] [address] 19832Nfgtxew [Mass/Vol]7.1 g/dLNormal6.3-8.0[facility] on above:Order Comment: Specimen Type: BLOOD SPECIMEN Ordering Facility: [facility] Address: [address] [place], [place] [address]Performed By: #### 68658-8 #### [facility] CLIA [id number] [address] [place] [address] 72177Xyuxuw [Moles/Vol]134 mmol/NFlw990-695YxubtgjigSelect Medical [facility] on above:Order Comment: Specimen Type: BLOOD SPECIMEN Ordering Facility: [facility] Address: [address] [address]Performed By: #### 99421-6 #### [facility] CLIA [id number] [address] [place], [place] [address]Ljnb nitrogen [Mass/Vol]23 mg/dLHigh7-21[facility] on above:Order Comment: Specimen Type: BLOOD SPECIMEN Ordering Facility: [facility] Address: [place] [address]Sdoxigain By: #### 89727-0 #### [facility] CLIA [id number] [address] [place], [place] [address]NHXGxv 64-19-8431XNYLItixtztuy ([place]) UZMA RAMIREZ ([id number]) 1955 F Date Time Provider Department 02/06/22 ERROL CORBIN During your visit today, we recorded the following information about you: Corinne Reyes MA 02/06/2022 11:[address]/sign lab orders for 02/15/22. Thanks. Corinne Reyes MA Allergies As of Date: 02/06/2022 Noted Allergy Reaction FENTANYL 02/15/2021 16 - Unknown PENICILLINS 02/16/2021 2 - Rash PERCOCET (OXYCODONE-ACETAMINOPHEN)10/09/2005 8 - GI Upset SULFA DYNE 09/17/2012 2 - Rash TERBINAFINE 04/30/2018 2 - Rash Date Reviewed: 02/21/2021 Reviewed by: Lilia Castro - Fully Assessed Reason for Visit: Lab Orders [8938] Primary Visit Diagnosis:Malignant neoplasm of upper-outer quadrant of left breast in female, estrogen receptor positive (HCC) [C50.412, Z17.0] Order(s):CBC + DIFF [SQCBCDIF] Order #: [id number] FUTURE COMP METABOLIC PANEL [SQCMP] Order #: [id number] FUTURE Prescriptions as of 02/07/2022 - rosuvastatin [...] [Z96.649] Encounter Status:Closed by LILIA CASTRO on 02/07/22[facility] WITH INRon 99-58-2556JBI Coag (PPP) [Relative time]0.9 {INR}NormalNorthern Washington Medical SpecialistComment on above:Order Comment: [facility] Testing performed at: [place], [place] [facility], [address] [facility], [address] [place] [address], [phone], Nsh Teacher: Mariano Paul MD [facility] Collection Date/Time: [facility] Results Received Date/Time: [facility] Reported Date/Time: FASTING: NOResult Comment: Reference Range 0.9-1.1 Moderate-intensity Warfarin Therapy 2.0-3.0 Higher-intensity Warfarin Therapy 3.0-4.0Performed By: #### 763X, 26F, %SBNOCULI, 3020X #### [facility] Default [address] [place], [place] [address]GT Coag (PPP) [Time]9.3 sNormal9.0-11.5Northern Washington Medical SpecialistComment on above:Order Comment: [facility] performed at: [place], [place] [facility], [address] , [address] [place] [address], [place], [place], [address], Nsh Teacher: Mariano Paul MD [facility] Date/Time: [facility] Results Received Date/Time: [facility] Reported Date/Time: FASTING: NOResult Comment: For additional information, please refer to [email or web address].[email or web address]/faq/XEU747 (This link is being provided for informational/ educational purposes only.)Performed By: #### 763X, 26F, %SBNOCULI, 3020X #### [facility] Default [address] [place], [place] [address]X - PTTon 71-35-2091GGACQCL THROMBOPLASTIN TIME, AVAUDFSTT28 sec Qvwpnr55-71FcbheosrAkron Children's HospitalComment on above:Order Comment: Quest Testing performed at: [facility], [address] [place] [address], [address] [place] [address], [address], Nsh Teacher: Mariano Paul MD [facility] Collection Date/Time: [facility] Results Received Date/Time: [facility] Reported Date/Time: FASTING: NOResult Comment: This test has not been validated for monitoring unfractionated heparin therapy. For testing that is validated for this type of therapy, please refer to the Heparin Anti-Xa assay (test code 44792). For additional information, please refer to [email or web address]/faq/OFH517 (This link is being provided for informational/educational purposes only.)Performed By: #### 763X, 26F, %SBNOCULI, 3020X #### [facility] [address] [place], [place] [address]D - UR CULT REFLEXon 91-58-7615JGQXJYTCK URINE CULTURESEE NOTE NormalCherrington HospitalComment on above:Order Comment: Quest Testing performed at: [facility], [address] [place] [address], [address] [place] [address], [phone], Nsh Teacher: Mariano Paul MD [facility] Collection Date/Time: [id number] [facility] Results Received Date/Time: [id number] [facility] Reported Date/Time: FASTING: NOResult Comment: NO CULTURE INDICATEDPerformed By: #### 763X, 26F, %SBNOCULI, 3020X #### [facility] [address] [place], [place] [address]B - URINALYSIS,COMPLETE,WITH REFLEX TO CULTUREon 12-21-2021 Appearance (U)CLEARNormalCLEARWestern Reserve Hospital SpecialistComment on above: Order Comment: [facility] Testing performed at: [facility], [facility], [address] , [address] [place] [address], [address] [place] [address], Nsh Teacher: Mariano Paul MD [facility] Collection Date/Time: [facility] Results Received Date/Time: [facility] Reported Date/Time: FASTING: NOPerformed By: #### 763X, 26F, %SBNOCULI, 3020X #### [facility] [address] [place], [place] [address]BOAPRDHUGLIC SEENNormalNONE SEENWestern Reserve Hospital Specialist Comment on above:Order Comment: [facility] Testing performed at: [facility], [address] , [address] [place] [address], [address] [place] [address], Nsh Teacher: Mariano Paul MD [facility] Collection Date/Time: [facility] Results Received Date/Time: [facility] Reported Date/Time: FASTING: NOPerformed By: #### 763X, 26F, %SBNOCULI, 3020X #### [facility] [address] [place], [place] [address]Gfrttolpv Ql (U)NegativeNormalNEGATIVEWestern Reserve Hospital SpecialistComment on above:Order Comment: Quest Testing performed at: [facility], [address] , [address] [place] [address], [address] [place] [address], Nsh Teacher: Mariano Paul MD [facility] Collection Date/Time: [facility] Results Received Date/Time: [facility] Reported Date/Time: FASTING: NOPerformed By: #### 763X, 26F, %SBNOCULI, 3020X #### [facility] [address] [place], [place] [address]Wqafk (U)DARK YELLOWNormalYELLOWWestern Reserve Hospital Specialist Comment on above:Order Comment: Quest Testing performed at: [employer], [facility], [address] [facility], [address] [place] [address], [address] [place] [address], Nsh Teacher: Mariano Paul MD [facility] Collection Date/Time: [facility] Results Received Date/Time: [facility] Reported Date/Time: FASTING: NOPerformed By: #### 763X, 26F, %SBNOCULI, 3020X #### [facility] [address] [place], [place] [address]Kbdimyu Ql (U)NegativeNormalNEGATIVEWestern Reserve Hospital SpecialistComment on above:Order Comment: [facility] Testing performed at: [facility], [facility], [address] [facility], [address] [place] [address], [address] [place] [address], Nsh Teacher: Mariano Paul MD [facility] Collection Date/Time: [facility] Results Received Date/Time: [facility] Reported Date/Time: FASTING: NOPerformed By: #### 763X, 26F, %SBNOCULI, 3020X #### [facility] [address] [place], [place] [address]PFPXXIU CASTNONE SEENNormalNONE SEENWestern Reserve Hospital SpecialistComment on above:Order Comment: [facility] Testing performed at: [facility], [facility], [address] [facility], [address] [place] [address], [address] [place] [address], Nsh Teacher: Mariano Paul MD [facility] Collection Date/Time: [facility] Results Received Date/Time: [facility] Reported Date/Time: FASTING: NOPerformed By: #### 763X, 26F, %SBNOCULI, 3020X #### [facility] [address] [place], [place] [address]Dhhflht Ql (U)TRACEAbnormalNEGKettering Health Washington TownshipComascension river district hospital on above:Order Comment: Quest Testing performed at: [facility], [facility], [address] , [address] [place] [address], [address] [place] [address], Nsh Teacher: Mariano Paul MD [facility] Collection Date/Time: [facility] Results Received Date/Time: [facility] Reported Date/Time: FASTING: NOPerformed By: #### 763X, 26F, %SBNOCULI, 3020X #### [facility] [address] [place], [place] [address]Nlnxiiolq esterase Test strip Ql (U)NegativeNormalNEGFayette County Memorial HospitalComment on above:Order Comment: Quest Testing performed at: [facility], [facility], [address] , [address] [place] [address], [address] [place] [address], Nsh Teacher: Mariano Paul MD [facility] Collection Date/Time: [facility] Results Received Date/Time: [facility] Reported Date/Time: FASTING: NOPerformed By: #### 763X, 26F, %SBNOCULI, 3020X #### [facility] [address] [place], [place] [address]Heaiuxy Ql (U)NegativeNormalNEGDiley Ridge Medical Center SpecialistComment on above:Order Comment: Quest Testing performed at: [employer], [facility], [address] , [address] [place] [address], [address] [place] [address], Nsh Teacher: Mariano Paul MD [facility] Collection Date/Time: [facility] Results Received Date/Time: [facility] Reported Date/Time: FASTING: NOPerformed By: #### 763X, 26F, %SBNOCULI, 3020X #### [facility] [address] [place], [place] [address]FUPYFO BLOODNegativeNormalNEGATIVENoMercy Health Allen Hospital SpecialistComment on above:Order Comment: Quest Testing performed at: [facility], [facility], [address] , [address] [place] [address], [address] [place] [address], Nsh Teacher: Mariano Paul MD [facility] Collection Date/Time: [facility] Results Received Date/Time: [facility] Reported Date/Time: FASTING: NOPerformed By: #### 763X, 26F, %SBNOCULI, 3020X #### [facility] Default [address] [place], [place] [address]uP (U)[pH]Normal5.0-8.0NortherSt. Charles Hospital SpecialistComment on above:Order Comment: Quest Testing performed at: [facility], [facility], [address] , [address] [place] [address], [address] [place] [address], Nsh Teacher: Mariano Paul MD [facility] Collection Date/Time: [facility] Results Received Date/Time: [facility] Reported Date/Time: FASTING: NOPerformed By: #### 763X, 26F, %SBNOCULI, 3020X #### [facility] Default [address] [place], [place] [address]Wlegopd Ql (U)TRACEAbnormalNEGATIVENortcarondelet st. joseph's hospitaln [facility] SpecialistComment on above:Order Comment: Quest Testing performed at: [facility], [facility], [address] , [address] [place] [address], [address] [place] [address], Nsh Teacher: Mariano Paul MD [facility] Collection Date/Time: [facility] Results Received Date/Time: [facility] Reported Date/Time: FASTING: NOPerformed By: #### 763X, 26F, %SBNOCULI, 3020X #### [facility] [address] [place], [place] [address]BAORHVH SEENNormal< OR = 2[facility] SpecialistComment on above:Order Comment: Quest Testing performed at: [employer] [facility], [address] [place] [address], [address] [place] [address], [address] [place] [address], Nsh Teacher: Mariano Paul MD [facility] Collection Date/Time: [facility] Results Received Date/Time: [facility] Reported Date/Time: FASTING: NOPerformed By: #### 763X, 26F, %SBNOCULI, 3020X #### [facility] Default [address] [place], [place] [address]Jwzppmhs gravity (U) [Rel density]1.232Nfzqke1.001-1.035[facility] SpecialistComment on above:Order Comment: Quest Testing performed at: [employer] [facility], [address] [place] [address], [address] [place] [address], [address] [place] [address], Nsh Teacher: Mariano Paul MD [facility] Collection Date/Time: [facility] Results Received Date/Time: [facility] Reported Date/Time: FASTING: NOPerformed By: #### 763X, 26F, %SBNOCULI, 3020X #### [facility] Default [address] [place], [place] [address]JHMWWIBH EPITHELIAL CELLSNONE SEENNormal< OR = 5[facility] SpecialistComment on above:Order Comment: [facility] Testing performed at: [facility], [facility], [address] [place] [address], [address] [place] [address], [address] [place] [address], Nsh Teacher: Mariano Paul MD [facility] Collection Date/Time: [facility] Results Received Date/Time: [facility] Reported Date/Time: FASTING: NOPerformed By: #### 763X, 26F, %SBNOCULI, 3020X #### [facility] Default [address] [place], [place] [address]ZYTJBYU SEENNormal< OR = 5[facility] SpecialistComment on above:Order Comment: Quest Testing performed at: [facility], [facility], [address] [facility], [address] [facility], [place], [address], Nsh Teacher: Mariano Paul MD [facility] Collection Date/Time: [facility] Results Received Date/Time: [facility] Reported Date/Time: FASTING: NOPerformed By: #### 763X, 26F, %SBNOCULI, 3020X #### [facility] Default [address] [place], [place] [address]Nfbboiqy Blood Count with Auto Diffon 78-26-5914Awiqnnghy (Bld) [#/Vol]0.03 10*3/uLNormal0.00-0.20[facility] SpecialistComment on above:Performed By: #### CBCAD, CMP #### [facility] [address] [place], [place] [id number]/100 WBC (Bld)0.3 %NormalNortLouis Stokes Cleveland [facility] Medical Center Medical SpecialistComment on above:Performed By: #### CBCAD, CMP #### [facility] [address] [place], [place] [id number] (Bld) [#/Vol]0.02 10*3/uLNormal0.02-0.50[facility] SpecialistComment on above:Performed By: #### CBCAD, CMP #### [facility] [address] [place], [place] [id number]/100 WBC (Bld)0.2 %NormalNortLouis Stokes Cleveland [facility] Medical Center Medical SpecialistComment on above:Performed By: #### CBCAD, CMP #### [facility] [address] [place], [place] [id number] distribution width (RBC) [Ratio]14.3 %Normal 11.0-15.0Nortcarondelet st. joseph's hospitaln [facility] SpecialistComment on above:Performed By: #### CBCAD, CMP #### [facility] [address] [place], [place] [id number] (Bld) [Volume fraction]46.9 %Ioxifl66.0-47.0 [facility] SpecialistComment on above:Performed By: #### CBCAD, CMP #### [facility] [address] [place], [place] [id number] (Bld) [Mass/Vol]14.3 g/jWIyjoya85.6-15.5NoMercy Health Allen Hospital SpecialistComment on above:Performed By: #### CBCAD, CMP #### [facility] [address] [place], [place] [id number] (Bld) [#/Vol]2.2 10*3/uLNormal0.9-3.9NoMercy Health Allen Hospital SpecialistComment on above:Performed By: #### CBCAD, CMP #### [facility] [address] [place], [place] [id number]/100 WBC (Bld)19.7 %NormalWestern Reserve Hospital SpecialistComment on above:Performed By: #### CBCAD, CMP #### [facility] [address] [place], [place] [id number] (RBC) [Entitic mass]30.0 bqLttbsy90.0-33.0[facility] SpecialistComment on above:Performed By: #### CBCAD, CMP #### [facility] [address] [place], [place] [id number] (RBC) [Mass/Vol]30.5 g/dLLow32.0-36.0[facility] SpecialistComment on above:Performed By: #### CBCAD, CMP #### [facility] [address] [place], [place] [id number] (RBC) [Entitic vol]98 gGJnvivc38-031Efckqckj [facility] SpecialistComment on above:Performed By: #### CBCAD, CMP #### [facility] [address] [place], [place] [id number] (Bld) [#/Vol]0.5 10*3/uLNormal0.2-0.9[facility] SpecialistComment on above:Performed By: #### CBCAD, CMP #### [facility] [address] [place], [place] [id number]/100 WBC (Bld)4.3 %NormalWestern Reserve Hospital SpecialistComment on above:Performed By: #### CBCAD, CMP #### [facility] [address] [place], [place] [id number] (Bld) [#/Vol]8.3 10*3/uLHigh1.5-7.8NortMercy Health [facility]ain Hospital SpecialistComment on above:Performed By: #### CBCAD, CMP #### [facility] [address] [place], [place] [id number]/100 WBC (Bld)75.2 %NormalNoMercy Health Allen Hospital SpecialistComment on above:Performed By: #### CBCAD, CMP #### [facility] [address] [place], [place] [id number] mean volume (Bld) [Entitic vol]10.80 fLNormal 7.50-12.50NoMercy Health Allen Hospital SpecialistComment on above:Performed By: #### CBCAD, CMP #### [facility] [address] [place], [place] [id number] (Bld) [#/Vol]303 10*3/nDYklhkv719-027Crwtmulh [facility] SpecialistComment on above:Performed By: #### CBCAD, CMP #### [facility] [address] [place], [place] [id number] (Bld) [#/Vol]4.77 10*6/uLNormal3.90-5.20NoMercy Health Allen Hospital SpecialistComment on above:Performed By: #### CBCAD, CMP #### [facility] [address] [place], [place] [id number]-MF39.3 hTGjsb39.0-50.0NoMercy Health Allen Hospital Specialist Comment on above:Performed By: #### CBCAD, CMP #### [facility] [address] [place], [place] [id number] (Bld) [#/Vol]11.1 10*3/uLHigh3.8-11.0NoMercy Health Allen Hospital SpecialistComment on above:Performed By: #### BRIDGET, CMP #### [facility] [address] [place], [place] [id number] Metabolic Panelon 12-46-7300Xbeiimd [Mass/Vol] 5.0 g/dLNormal3.6-5.1[facility] SpecialistComment on above:Performed By: #### CBCMAINE, CMP #### [facility] [address] [place], [place] [id number]/Globulin [Mass ratio]1.9 {ratio}Normal1.0-2.5NoMercy Health Allen Hospital SpecialistComment on above:Performed By: #### CBCMAINE, CMP #### [facility] [address] [place], [place] [id number] [Catalytic activity/Vol]68 U/NLzgsct14-806Kqbalxzz [facility] SpecialistComment on above:Performed By: #### CBCMAINE, CMP #### [facility] [address] [place], [place] [id number] [Catalytic activity/Vol]112 U/LHigh6-33NoMercy Health Allen Hospital SpecialistComment on above:Result Comment: 10/04/2021 Female reference range changed.Performed By: #### CBCMAINE, CMP #### [facility] [address] [place], [place] [id number] gap [Moles/Vol]21 mmol/TKcgv65-22YbpgpsxrMercy Health Allen Hospital SpecialistComment on above:Result Comment: Effective 11/09/2019 reference range changed.Performed By: #### CBCMAINE, CMP #### [facility] [address] [place], [place] [id number] [Catalytic activity/Vol]84 U/LHigh9-34NoMercy Health Allen Hospital SpecialistComment on above:Performed By: #### CBCAD, CMP #### [facility] [address] [place], [place] [id number] [Mass/Vol]1.12 mg/dLNormal0.30-1.20[facility] SpecialistComment on above:Performed By: #### CBCAD, CMP #### [facility] [address] [place], [place] [id number]/CREA30 RatioHigh6-22Nortcarondelet [address]. joseph's hospitaln [place] [employer] [facility] Comment on above:Performed By: #### CBCAD, CMP #### [facility] [address] [place], [place] [id number] [Mass/Vol]10.0 mg/dLNormal8.6-10.2[facility] SpecialistComment on above:Performed By: #### CBCAD, CMP #### [facility] [address] [place], [place] [id number] [Moles/Vol]101 mmol/BPgitfu37-510Zzdjnxkj [facility] SpecialistComment on above:Performed By: #### CBCAD, CMP #### [facility] [address] [place], [place] [id number] [Moles/Vol]19 mmol/WOml82-03Zhlukrqd [facility] SpecialistComment on above:Performed By: #### CBCAD, CMP #### [facility] [address] [place], [place] [id number] [Mass/Vol]0.8 mg/dLNormal0.6-1.4Nortcarondelet [address] joseph's hospitaln [place] [facility] SpecialistComment on above:Performed By: #### CBCAD, CMP #### [facility] [address] [place], [place] [id number] mL/min/1.42u3Qforiv>60NortLouis Stokes [facility] Medical SpecialistComment on above:Performed By: #### CBCAD, CMP #### [facility] [address] [place], [place] [id number] mL/min/1.30l2Ryzbse>60NortherHarrison Community Hospital Medical SpecialistComment on above:Performed By: #### CBCAD, CMP #### [facility] [address] [place], [place] [id number] (S) [Mass/Vol]2.6 g/dLNormal1.9-3.7NoMercy Health Allen Hospital SpecialistComment on above:Performed By: #### BRIDGET, CMP #### [facility] [address] [place], [place] [id number] [Mass/Vol]154 mg/eJEgeo60-47Fajxrkvn [facility] SpecialistComment on above:Result Comment: For FASTING Glucose --- ADA reference ranges: Normal 65-99 mg/dl Prediabetes 100-125 Diabetes >/= 126Performed By: #### BRIDGET, CMP #### [facility] [address] [place], [place] [id number] [Moles/Vol]4.5 mmol/LNormal3.5-5.5NoMercy Health Allen Hospital SpecialistComment on above:Performed By: #### BRIDGET, CMP #### [facility] [address] [place], [place] [id number] [Mass/Vol]7.6 g/dLNormal6.1-8.1[facility] SpecialistComment on above:Performed By: #### BRIDGET, CMP #### [facility] [address] [place], [place] [id number] [Moles/Vol]137 mmol/LMxyogj892-665Aakouzcm [facility] SpecialistComment on above:Performed By: #### BRIDGET, CMP #### [facility] [address] [place], [place] [id number] nitrogen [Mass/Vol]24 mg/dLNormal7-25NoMercy Health Allen Hospital SpecialistComment on above:Performed By: #### BRIDGET, CMP #### [facility] [address] [place], [place] [id number] 53-61-4470FQWUGajllbdam (HEMASA) UZMA RAMIREZ ([id number]) 1955 F Date Time Provider Department 03/02/21 [...] Unknown PENICILLINS 02/16/2021 2 - Rash PERCOCET (OXYCODONE-ACETAMINOPHEN)10/09/2005 8 - GI Upset SULFA DYNE 09/17/2012 [...] by other means [Z96.649] Encounter Status:Closed by HAILEY ARJUN on 03/02/21NoMercy Health Anderson HospitalCNJame [id number] (NCCAP) UZMA RAMIREZ ([id number]) 1955 F Date Time Provider Department 02/21/21 ERROL CORBIN During your visit today, we recorded the following information about you: Caterina Weston [facility] 02/21/2021 9:58 AM Signed Pt is scheduled at [facility] for bone density and yayo screen mammogram. Dr Corbin, can you please review and place orders in [facility] to be faxed? Thanks! Katia Rojas RN 02/21/2021 11:17 AM Signed Orders pended. Please review and approve. Thanks, ADELSO Moore 02/21/2021 12:33 PM Signed Signed. Lilia Castro APRN.SOREN Villar [facility] 02/21/2021 12:54 PM Signed Faxed to [facility] Allergies As of Date: 02/21/2021 Noted Allergy Reaction FENTANYL 02/15/2021 16 - Unknown PENICILLINS 02/16/2021 2 - Rash PERCOCET (OXYCODONE-ACETAMINOPHEN)10/09/2005 8 - GI Upset SULFA DYNE 09/17/2012 2 - Rash TERBINAFINE 04/30/2018 2 - Rash Date Reviewed: 02/21/2021 Reviewed by: Lilia Castro - Fully Assessed Reason for Visit: Future Appointment [256] Primary Visit Diagnosis:Malignant neoplasm of upper-outer quadrant of left breast in female, estrogen receptor positive (HCC) [C50.412, Z17.0] Other Visit Diagnosis:Age-related osteoporosis without current pathological fracture [M81.0] Order(s):DXA-AXIAL SKELETON [9319340] Order #: [id number] FUTURE JOHANN SCREENING [4001303] Order #: [id number] FUTURE Prescriptions as of 02/21/2021 Sig: ROSUVASTATIN [...] [Z96.649] Encounter Status:Closed by CATERINA MADERA on 04/14/21NoMercy Health Anderson Hospital Vital Signs Date TimeVital SignValuePerforming NlbubbyldRrlsqwga14-89-6707 11:21-0400 Diastolic blood bnvzjoxw63 mm[Hg]Florinda Flowers MD Work Phone: [phone])[address]10-22-2025 11:21-0400 Heart rate55 /minFlorinda Flowers MD Work Phone: [phone])[address]10-22-2025 11:21-0400 Systolic blood pdboucpj140 mm[Hg]Florinda Flowers MD Work Phone: [phone]10-22-2025 11:07-0400 Body fajbue176.64 cmFlorinda Flowers MD Work Phone: [phone])[address]10-22-2025 11:07-0400 Body mass index (BMI) [Ratio]30.2 kg/t0BhhzqkFlorinda Flowers MD Work Phone: [phone])[address]10-22-2025 11:07-0400 Body iyvboj55.82 kgFlorinda Flowers MD Work Phone: [phone])[address]07-02-2025 10:46-0400 Body gdrkaf223.64 cmFlorinda Flowers MD Work Phone: [phone])[address]07-02-2025 10:46-0400 Body mass index (BMI) [Ratio]30.4 kg/v6FvrpzlFlorinda Flowers MD Work Phone: [facility]07-02-2025 10:46-0400 Body cmbowr02.72 kgFlorinda Flowers MD Work Phone: [facility]07-02-2025 10:46-0400 Diastolic blood qqrhhgke74 mm[Hg]Florinda Flowers MD Work Phone: [facility]07-02-2025 10:46-0400 Heart rate69 /minFlorinda Flowers MD Work Phone: [facility]07-02-2025 10:46-0400 Systolic blood zhuzpgcq845 mm[Hg]Florinda Flowers MD Work Phone: [phone]04-15-2025 11:14-0400 Body .6 cmAngsowmya Julir PROMOTIONAL MARKETING ANALYST Work Phone: [facility] HospitalNwcormviat73-07-1315 11:14-0400Body mass index (BMI) [Ratio]30.51 kg/d0Mbszxy Gillmor PROMOTIONAL MARKETING ANALYST Work Phone: [facility] HospitalFkhlxlhvpn68-33-2482 11:14-0400Body fofnfi10.73 kgAngela Еленаmor PROMOTIONAL MARKETING ANALYST Work Phone: [facility] HospitalAqpgshudld92-33-9910 11:14-0400Diastolic blood orptvaai12 mm[Hg]Uzma Christiansenmor PROMOTIONAL MARKETING ANALYST Work Phone: [facility] HospitalUoxxsgsryu43-29-4354 11:14-0400Heart rate58 /min Uzma Еленаmor PROMOTIONAL MARKETING ANALYST Work Phone: [place] [address]Zzlrponjgr07-89-0073 11:14-0400Systolic blood apitlzfb663 mm[Hg]Uzma Еленаmor PROMOTIONAL MARKETING ANALYST Work Phone: [facility] HospitalAvqbikksjf57-61-5488 11:17-0400Body bhonrz257.6 cmNicole Brinda DO Work Phone: [facility] HospitalBeukgnrivd48-54-1290 11:17-0400Body mass index (BMI) [Ratio]30.51 kg/l0Qydwwh Brinda DO Work Phone: noMiss[facility] CenterCmhvxfngvd01-72-5444 11:17-040Body .73 kgNicemanuel Barretoner DO Work Phone: noMiss[facility] CenterWghzrkydql36-57-5864 11:17-0400Diastolic blood jepdkppg06 mm[Hg]Mc Barretoner DO Work Phone: [facility] HospitalWgyhnwwsny43-60-4702 11:17-0400Heart rate53 /min Mc Brinda DO Work Phone: [place] [address]Iposxmdhzu89-71-3690 11:170477CoU8% (BldA) [Mass fraction]95 %Mc Parry DO Work Phone: noMiss[facility] Medical CenterDdztxolewn03-14-2230 11:17-040Systolic blood ircbaecz708 mm[Hg]Mc Parry DO Work Phone: [facility] HospitalDsjvogsyzx88-14-9879 10:42-0500Body mass index (BMI) [Ratio]29.24 kg/l9XxmzaowMaria L Bean APRN-ACADEMIC AFFAIRS COORDINATOR Work Phone: [facility]11-13-2024 10:42-0500Body kgbbaj50.69 kgMaria L Bean APRN-ACADEMIC AFFAIRS COORDINATOR Work Phone: [facility]10-30-2024 09:22-0400Body kzroej881.2 cmRehana Quintanillas DO Work Phone: [facility]10-30-2024 09:22-0400Body mass index (BMI) [Ratio]29.13 kg/d3CefuucvRehana Quintanillas DO Work Phone: [facility]10-30-2024 09:22-0400Body vsigjc60.37 kgMiclennox Quintanillas DO Work Phone: [facility]10-30-2024 09:22-0400Diastolic blood hpnixxqe29 mm[Hg]Rehana Reinoso DO Work Phone: [facility]10-30-2024 09:22-0400Heart rate 60 /minRehana Reinoso DO Work Phone: [place] [facility]30[facility]24 09:22-0400Systolic blood evawvyia444 mm[Hg]Rehana Reinoso DO Work Phone: [facility]10-18-2024 10:58-0400Body ovlese885.1 cmMD Florinda Flowers Work Phone: [phone]10-18-2024 10:58-0400 Body mass index (BMI) [Ratio]30.9 kg/m2MD Florinda Flowers Work Phone: [phone]23[facility]10-18-2024 10:58-0400 Body jyhfvt70.36 kgMD Florinda Flowers Work Phone: [phone]18[facility]10-18-2024 10:58-0400 Diastolic blood mrvozibm140 mm[Hg]MD Florinda Flowers Work Phone: [phone]10-18-2024 10:58-0400 Heart rate80 /minMD Florinda Flowers Work Phone: [phone]10-18-2024 10:58-0400 Systolic blood mm[Hg]MD Florinda Flowers Work Phone: [phone]03-01-2024 11:09-0500 Body uaqhwk139.6 cmMaria L Bean GUN PERFORATOR-ACADEMIC AFFAIRS COORDINATOR Work Phone: [facility]03-01-2024 11:09-0500Body mass index (BMI) [Ratio]28.57 kg/u5UyevlncMaria L Bean GUN PERFORATOR-ACADEMIC AFFAIRS COORDINATOR Work Phone: [facility]03-01-2024 11:09-0500Body bnpard75.29 kgMaria L Bean GUN PERFORATOR-ACADEMIC AFFAIRS COORDINATOR Work Phone: [facility]03-01-2024 11:09-0500Diastolic blood aejwhinq65 mm[Hg]Maria L Bean GUN PERFORATOR-ACADEMIC AFFAIRS COORDINATOR Work Phone: [facility] Nlkfiw16-96-2067 11:09-0500Systolic blood fvjgwuyi553 mm[Hg]Maria L Bean GUN PERFORATOR-ACADEMIC AFFAIRS COORDINATOR Work Phone: [facility] Djozkr37-29-0031 10:30-0400Body .64 cmFlorinda Flowers Other [employer] Other 08-15-2023 10:30-0400Body mass index (BMI) [Ratio] 28.73 kg/z2SjaoimFlorinda Flowers Other [employer] Other 08-15-2023 10:30-0400Body .74 kgFlorinda Flowers Other [employer] Other 08-15-2023 10:30-0400Diastolic blood bqbsoudg20 mm[Hg] Florinda Flowers Other [employer] Other 08-15-2023 10:30-0400Systolic blood fvdritdu418 mm[Hg] Florinda Flowers Other [employer] Other 02-20-2023 10:00-0500Body aipwcv429.64 cmFlorinda Flowers Other [employer] Other 02-20-2023 10:00-0500Body mass index (BMI) [Ratio] 30.02 kg/w8OwvxysFlorinda Flowers Other [employer] Other 02-20-2023 10:00-0500Body govlpf58.37 kgFlorinda Flowers Other [employer] Other 02-20-2023 10:00-0500Diastolic blood yojrgmys63 mm[Hg] Florinda Flowers Other [employer] Other 02-20-2023 10:00-0500Systolic blood vapxgdsu177 mm[Hg] Florinda Flowers Other [employer] Other 11-27-2022 12:00-0500Body ghreoq434.64 cmPameltianna Wyatt Other [employer] Other 11-27-2022 12:00-0500Body mass index (BMI) [Ratio] 29.53 kg/o5Augedk Dymond Other [employer] Other 11-27-2022 12:00-0500Body jytqgscxwrc62.3 [degF]Elizabeth Yoselin Other [employer] Other 11-27-2022 12:00-0500Body zpotiy77.01 kgPalogan Wyatt Other [employer] Other 11-27-2022 12:00-0500Respiratory rate18 /minElizabeth Wyatt Other [employer] Other 11-27-2022 12:00-9117FvX1% (BldA) [Mass fraction]99 % Elizabeth Francomond Other [employer] Other 10-11-2022 15:20-0400Body .64 Son Rizvi Other [employer] Other 10-11-2022 15:20-0400Body mass index (BMI) [Ratio]30.5 kg/m2Teetee Rizvi Other [employer] Other 10-11-2022 15:20-0400Body wkolyhhgyer92.2 [degF]Teetee Rizvi Other [employer] Other 10-11-2022 15:20-0400Body ishzyi02.73 kgTeetee Rizvi Other [employer] Other 10-11-2022 15:20-0400Diastolic blood pajeexej30 mm[Hg] Teetee Rizvi Other [facility] Other 10-11-2022 15:20-0400Respiratory rate18 /minTeetee Rizvi Other [employer] Other 10-11-2022 15:20-8404VsJ5% (BldA) [Mass fraction]96 % Teetee Rizvi Other [facility] [employer] Other 10-11-2022 15:20-0400Systolic blood hrtyaqzz480 mm[Hg] Teetee Rizvi Other [employer] Other 09-16-2022 13:49-0400Body .64 cmFlorinda Flowers Work Phone: [phone]-Eibcy [facility] 600 DO Work Phone: [phone] 204-150209-16-2022 13:49-0400Diastolic blood icfwavbz58 mm[Hg] Florinda Flowers Work Phone: [phone]-Mbbog [facility] 600 DO Work Phone: [phone] 946-159609-16-2022 13:49-0400Heart rate66 /minFlorinda Flowers Work Phone: [phone]-Athdl [facility] [employer] 600 DO Work Phone: [phone] 278-840209-16-2022 13:49-0400Systolic blood bygrygvl862 mm[Hg] Florinda Flowers Work Phone: [phone]-Sqlxm [facility] [address] DO Work Phone: [phone] 535-200808-31-2022 12:06-0400Diastolic blood qkjyfktf23 mm[Hg] MD Florinda Flowers Work Phone: [facility]08-31-2022 12:06-0400 Heart rate62 /minMD Florinda Flowers Work Phone: [facility]08-31-2022 12:06-0400 Respiratory rate16 /minMD Florinda Flowers Work Phone: [phone]08-31-2022 12:06-0400 SaO2% (BldA) [Mass fraction]95 %MD Florinda Flowers Work Phone: [facility]08-31-2022 12:06-0400 Systolic blood yhimbudh897 mm[Hg]MD Florinda Flowers Work Phone: [facility]08-31-2022 09:23-0400 Body yrfkdt550.64 cmMD Florinda Flowers Work Phone: [facility]08-31-2022 09:23-0400 Body upvnfj62.72 kgMD Florinda Flowers Work Phone: [phone]08-09-2022 17:20-0400 Body ohllng485.64 Son Rizvi Other [employer] Other 08-09-2022 17:20-0400Body mass index (BMI) [Ratio]30.5 kg/m2Teetee Rizvi Other [facility] Other 08-09-2022 17:20-0400Body ynkyycmsqpt26 [degF]Teetee Rizvi Other [employer] Other 08-09-2022 17:20-0400Body zabbpp39.73 kgTeetee Rizvi Other [employer] Other 08-09-2022 17:20-0400Diastolic blood qdpajmbd90 mm[Hg] Teetee Rizvi Other [employer] Other 08-09-2022 17:20-0400Respiratory rate18 /minTeetee Rizvi Other [employer] Other 08-09-2022 17:20-9354SfL8% (BldA) [Mass fraction]97 % Teetee Rizvi Other [employer] Other 08-09-2022 17:20-0400Systolic blood ovjwughe800 mm[Hg] Teetee Rizvi Other [facility] Other Encounters Encounter DateEncounter TypeCare ProviderFacilityStart: 08-25-2025 End: 59-29-5733Pfervbwus encounterMarobson SMITH Work Phone: noms [facility]opaedicsStart: 08-25-2025 End: 94-32-3195ycxiriylykZvbiik E Braun MD Work Phone: -[facility] ClinicStart: 08-25-2025 End: 70-00-0979Heipsoa encounter procedureFlorinda Flowers MD-[facility] Work Phone: Start: 08-20-2025 End: 70-09-4371Dtsbcs Oneida SMITH Work Phone: noms [facility]opaedicsStart: 08-20-2025 End: 16-33-3981Acrkue Oneida SMITH Work Phone: noms [facility]opaedicsStart: 08-20-2025 End: 47-67-6221Nmkbqmdts Result EncounterMarobson SMITH Work Phone: noms External Department UnsolicitedStart: 08-20-2025 Non-patient / Non-visitFlorinda Flowers MD-[facility] Work Phone: Start: 08-20-2025 End: 01-63-1965Gxzyih outpatient visit 25 minutesMarobson SMITH Work Phone: noms [facility] OrthopaedicsComment on above:Acute right hip pain (Primary Dx); History of total right hip replacement; Right hip pain; Acute pain of left shoulder; PolyarthralgiaStart: 08-20-2025 End: 39-90-7260nrsqdwvcvyMYGFCSB J MEYERNot AvailableStart: 05-05-2025 End: 94-22-2959jfqisfmxqmMnofvu E Braun MD Work Phone: [facility] Work Phone: Start: 05-05-2025 End: 80-87-7946Opbagdw encounter procedureUzma Nicole APRNHu [facility] [place] Work Phone: Start: 02-16-2025 End: 35-66-1368pswmzmfmceDQWLUM GILLMORNot AvailableStart: 02-16-2025 End: 26-12-2809Lbieig outpatient visit 25 minutesUzma Joel NP Work Phone: ana VASQUEZUEComment on above:Other insomnia (Primary Dx); Other chronic pain; Primary progressive aphasia (CMS/HCC); Bereavement; Memory lossStart: 02-15-2025 End: 91-23-2358Klygcxw encounter procedureMigel Dunlap PhD Work Phone: ana SANDCHELSIEYComment on above:Primary progressive aphasia (CMS/HCC) (Primary Dx); Memory loss; Other insomnia; Bereavement; 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); Word finding difficulty; Primary insomnia; Depression, unspecified depression type (CMS/HCC)Start: 02-15-2025 End: 84-71-5748fqaotnjykhFTVRBMVL DENBESTENNot AvailableStart: 02-15-2025 End: 29-94-3419Ncmhgb flowsheetMigel Pozosten PhD Work Phone: aGUY MONICAUSKYStart: 02-15-2025 End: 02-40-1623Wbhqpn flowsClifford Dunlap PhD Work Phone: aGUY SANDUSKYStart: 02-02-2025 End: 20-75-5382hahjfhcwbqSG., STEPANICNot AvailableStart: 02-02-2025 End: 31-59-0213Wadasxa encounter procedureMigel Dunlap PhD Work Phone: aGUY RHONAomment on above:Primary progressive aphasia (CMS/HCC) (Primary Dx); Memory loss; Other insomnia; Bereavement; 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)Start: 01-20-2025 End: 99-87-2666dylqqkuvkgJSXAEL DANNERNot AvailableStart: 01-18-2025 End: 23-66-3078bdodvupfgsWNAEEOJN DENBESTENNot AvailableStart: 01-14-2025 End: 90-92-3045Ylotkq flowsheetNicole Brinda DO Work Phone: aGUY BELLEVUEStart: 01-14-2025 End: 13-34-3325Xnupqd flowsheetNicole Brinda DO Work Phone: aGUY BELLEVUEStart: 01-14-2025 End: 56-09-6659Agnbol outpatient new 45 minutesNicole Brinda DO Work Phone: ana VASQUEZUEComment on above:Memory loss (Primary Dx); Primary insomnia; Pseudodementia; Depression, unspecified depression type (CMS/HCC)Start: 01-14-2025 End: 15-76-1448geunhecdxnPEXQBY DANNERNot AvailableStart: 43-84-6387Vzfqwoy encounter Rosibel Flowers MD Work Phone: [facility]art: 12-02-2024 End: 42-12-8509Dfocty flowsheetJr. Dell Antoinette Stepanic DO Work Phone: noms [facility] ORTHOStart: 12-02-2024 End: 93-97-0602Xrysdt flowsheetJr. Dell Antoinette Starkanic DO Work Phone: noms [facility] ORTHOStart: 12-02-2024 End: 65-21-0794gxpyqmwspiEV., DELL Curry STEPANICNot AvailableStart: 12-02-2024 End: 24-64-9924Azvacr outpatient visit 15 minutesJr. Dell Antoinette Adrian DO Work Phone: noms [facility] ORTHOComment on above:S/P TKR (total knee replacement), right (Primary Dx); Acute pain of left knee; History of left knee replacementStart: 09-16-2024 End: 89-45-1020Iabkbo follow up visit related to original [facility] GUN PERFORATORWORCESTER [facility] Work Phone: [facility] General SurgeryComment on above: Inclusion cyst (Primary Dx)Start: 09-16-2024 End: 61-42-8373iyihjxhptiWAWTMDHWashington Rural Health [facility] Start: 09-14-2024 End: 96-31-1997Blpgfz OnlyNot In System Ref Merged With [facility]Pro[facility] Phys[facility] General SurgeryStart: 09-08-2024 End: 89-25-4302wohkznkadbQB Marcia E Braun Work Phone: [facility] SystemComment on above:Inclusion cyst Start: 09-08-2024 End: 26-90-9361Qsbbeeiq ReferredMD Florinda Flowers Work Phone: [facility]-LAB Path Spec [place] HospStart: 09-02-2024 End: 51-13-4375Ualkcl outpatient new 20 minutesMicHCA Florida [facility] DO Work Phone: [facility] General SurgeryComment on above: Inclusion cyst (Primary Dx)Start: 09-02-2024 End: 14-64-0771zhmnxesfncADPZHKDPeaceHealth St. [facility] Start: 08-21-2024 End: 59-22-2835Aybkixw encounter procedureMD Florinda Flowers Work Phone: [facility] Work Phone: Start: 02-14-2024 End: 32-74-9863Irpvnrrpx encounterLauren Venia CMASouthwestern Vermont Medical CenterMedila Physicians General SurgeryStart: 02-11-2024 End: 93-45-4542Bxxzbk OnlyNot In System Ref ProvProMedica Physicians General SurgeryStart: 02-05-2024 End: 48-27-0470nicncfzdguJA Florinda Arriola Lionel Work Phone: [facility] HospitalComment on above:History of colon polypsStart: 02-05-2024 End: 10-24-7409Uuiavacj ReferredMD Florinda Flowers Work Phone: [facility] C[facility]-LAB Path Spec [place] HospStart: 27-58-8561Peakiw OnlyMaria L Bean GUN PERFORATOR-ACADEMIC AFFAIRS COORDINATOR Work Phone: [facility] Physicians General SurgeryComment on above: History of colon polyps (Primary Dx)Start: 01-03-2024 End: 18-68-1409tljfjbgwngBZZIQBBWashington Rural Health [facility] Start: 01-03-2024 End: 42-99-9208Qfjbte outpatient visit 15 minutesMaria L Bean GUN PERFORATOR-ACADEMIC AFFAIRS COORDINATOR Work Phone: [facility] SurgeryComment on above: History of colon polyps (Primary Dx)Start: 10-29-2023 End: 06-75-7302mskuiidcorFuaymy Braun Other [employer] Other Start: 62-38-4994Uegstimcv encounterMarcitianna Kaur [facility] Texastart: 08-19-2023 End: 14-30-2714jysitxmnpfMmtrpz Braun Other [employer] Other Start: 18-58-8859Yitovtalu encounterMarcia Natasha [facility] ClinicStart: 08-05-2023 End: 57-02-4748czftodgbwuIeknzj Flowers Other [employer] Other Start: 00-65-5626Qulimzfzp encounterMarcitianna [facility] ClinicStart: 06-18-2023 End: 42-25-5925oczjoomnjhNdpccw Flowers Other [employer] Other Start: 55-62-9983Cveppgrmd for other preprocedural examinationMarcitianna [facility] ClinicStart: 91-00-0725Tnaqzk outpatient visit 25 minutesMarsaleem [facility] ClinicStart: 03-12-2023 End: 81-61-9529rmhsgrzqvrNlpami Flowers Other [employer] Other Start: 11-20-5008Cjbplskto encounterMarcia Natasha [facility] ClinicStart: 02-20-2023 End: 28-63-5552udfthdnjtdXS DOCTOR MISCFacility:Q3Jmtvt: 49-48-7039Zflixbw encounter procedureMarsaleem [facility] ClinicStart: 12-24-2022 End: 87-43-0115afbwqqbutbIG FLORINDA Arriola [facility] [employer] Other Start: 12-06-2022 End: 29-14-8419gzeyztmrccHimkbg Flowers Other [employer] Other Start: 75-78-8725Rghkezsqw encounterMarcitianna [facility] ClinicStart: 82-99-2020Yptbppslb for preprocedural laboratory examinationDR REHANA REINOSO .[facility] Systemtart: 2022 End: 71-18-7443okhyoyrfehPL REHANA REINOSO .Facility:D2Xvebp: 11-19-2022 End: 50-23-4415gayqzwqhtcCU REHANA REINOSO .Facility:B3Qlkex: 11-19-2022 End: 19-55-4212Mlwovakku for preprocedural laboratory examinationDR REHANA REINOSO .Facility:S7Nwulo: 10-31-2022 End: 91-80-4478ihzhqezxcqIF DOCTOR MISCFacility:W5Qazyf: 58-06-8495Lgovc health examinationFlorinda Flowers Other [employer] Other Start: 18-51-0999Esnhfwrmfkjkm examination normal Florinda Flowers Other [employer] Other Start: 65-16-6047Adg-procedure evaluation checkFlorinda Flowers Other [employer] Other Start: 29-04-6845Mfdutmvagntj cardiovascular examinationFlorinda Flowers Other [employer] Other Start: 32-63-8247Avunmbe, abnormal examinationFlorinda Flowers Other [employer] Other Start: 09-30-2022 End: 62-16-9179cjjrkginylShucvn Dymond Other [employer] Other Start: 54-36-9780Euozvi outpatient visit 15 minutes Elizabeth WyattFPAbhijit Urgent Care ClydeStart: 08-14-2022 End: 71-99-5001tmbnoxeptlWunh Bakhous Other [employer] Other Start: 67-28-2992Wquphy outpatient visit 25 minutes Teetee Bui NephrologyStart: 08-01-2022 End: 44-53-3889zrjwjyesnhEpcm Bakhous Other [employer] Other Start: 25-38-1850Zpujvaogi encounterAziz BakzaheersFPG NephrologyStart: 07-30-2022 End: 39-06-0091jkhlhwelgqGB LEI PEREZFacility:T4Xcmlk: 17-07-5568Ncytes outpatient visit 25 minutesFlorinda Zeinab Lionel Work Phone: [phone]-Yoxpm [facility] 250 DO Work Phone: Start: 82-30-3730Myldqyj encounter procedureTamarsaleem Arriola Lionel Work Phone: [phone]-Svprv [facility] 600 DO Work Phone: Start: 79-00-5382sweuvcpcldTr. Florinda Flowers Facility:[id number]: 07-04-2022 End: 85-70-4100Fgfewikto to same day surgery centerMD Edwards Lionel Work Phone: [facility] Ctr-CT Scan [address] [place] Start: 07-02-2022 End: 15-07-7207ozrvrtudepLI RYAN ORTIZFacility:T1Fkiyp: 07-02-2022 End: 23-78-7126nbeeierayuWR ERROL CORBINFacility:J5Lxhjn: 06-12-2022 End: 54-19-6749pcdmmmhubzVvgr [facility] Other [employer] Other Start: 37-35-4338Gstzjj outpatient new 45 minutesAziz WaldemarzaheersFPG NephrologyStart: 03-19-2022 End: 13-96-1585Tfjdenx encounter procedure Florinda Lionel Work Phone: [facility] Ctr-Lab Str[address] RdStart: 82-54-3759Jcrgtwnvu encounterErrol Corbin MD Work Phone: Hematology/OncologyComment on above:Lab OrdersStart: 12-20-2021 End: 63-81-0362Bgubykx encounter procedure Florinda Lionel Work Phone: [facility] Ctr-XRay Str[address] RdStart: 02-15-2021 End: 48-42-3839Ksqzl Mateo Corbin Work Phone: Hematology/OncologyStart: 02-02-2021 End: 74-53-7575Maoakcu encounter procedureExternal ProviderKettering Health Hamilton Start: 62-17-6530Dzdvxww OnlyExternal ProviderExternal-NonCCF Procedures DateProcedureProcedure DetailPerforming ClinicianStart: 42-56-9349ZQG CBC WITH AUTO DIFFMarobson SMITH Work Phone: Start: 71-17-3194Rxody hip unilateral with pelvis 2-3 viewsMarobson SMITH Work Phone: Start: 67-09-6920Bqazf i surg pathology gross examination onlyNot In System Ref ProvStart: 54-07-2900LVXLOCXJ NON-[facility] PROCEDUREMichael E Grillis DO Work Phone: Start: 79-65-3757Atrvn i surg pathology gross examination onlyNot In System Ref ProvStart: 02-05-2024 End: 62-24-6223WdtnbbdkybeQaoiahb Tianna Bean GUN PERFORATOR-ACADEMIC AFFAIRS COORDINATOR Work Phone: Start: 63-48-5144IeftilbjxzwCwybtzt Carroll GUN PERFORATOR-ACADEMIC AFFAIRS COORDINATOR Work Phone: Start: 71-37-3195Qnsht X-ray of bilateral femursMD Florinda Flowers Work Phone: Start: 82-30-5029Yippy X-ray of bilateral tibia and bilateral fibulaMD Floirnda Flowers Work Phone: Start: 51-28-6845LUMTHZCJ IMAGINGExternal Provider Start: 91-83-3781WWVVLOFK LABExternal ProviderStart: 21-29-4487Zexrcswbx for malignant neoplasm of breastMarcia Lionel Other Arthroplasty of kneeMarcia E Lionel Work Phone: ColonoscopyMarmaceya E Lionel Work Phone: Excision of breast tissueMarcia E Lionel Work Phone: Comment on above:Breast surgery;History of operative procedure on kneeHistory of left knee replacementJr. Dell Adrian DO Work Phone: HysterectomyMarcia E Flowers Work Phone: Operation on breastMarcia E Flowers Work Phone: Operative procedure on kneeMarcia E Flowers Work Phone: Procedure on backMarcia E Flowers Work Phone: Screening for malignant neoplasm of breastMarcia Flowers Other Total replacement of hipMarcia E Flowers Work Phone: Plan of Treatment DateCare ActivityDetailAuthorStart: 01-51-5856Waavu BMI ScreeningAdult BMI ScreeningSelect [facility] SystemStart: 32-46-1051Zccfles ScreeningTobacco ScreeningNovant Health New Hanover Regional Medical Centertart: 09-03-2025 End: 02-13-5811Vxyraft encounter yusnmdcwp88/31/2025 10:45 AM EDT Office Visit [facility] [address] [place] [address] Ryan Milton PA [address] [place] [address] [facility] OrthopaedicsStart: 76-42-6452Rfwnm BMI Screening Adult BMI ScreeningNovant Health New Hanover Regional Medical Centertart: 17-28-1307Ubtjzut Screening Tobacco ScreeningNovant Health New Hanover Regional Medical Centertart: 08-20-2025 End: 08-20-2026 reactive protein [Mass/volume] in Serum or PlasmaC-reactive protein Lab Routine Polyarthralgia Expected: 08/20/2025 (Approximate), Expires: 08/20/2026NOMS HealthcareComment on above:Expected: 08/20/2025 (Approximate), Expires: 08/20/2026Start: 08-20-2025 End: 63-04-8947QJO W Auto Differential panel - BloodCBC and differential Lab Routine Polyarthralgia Expected: 08/20/2025 (Approximate), Expires: 08/20/2026 [facility] HealthcareComment on above:Expected: 08/20/2025 (Approximate), Expires: 08/20/2026Start: 08-20-2025 End: 14-04-8879Nzggggbyfhg sedimentation rateSedimentation rate, automated Lab Routine Polyarthralgia Expected: 08/20/2025 (Approximate), Expires: 08/20/2026 [facility]OM[facility] HealthcareComment on above:Expected: 08/20/2025 (Approximate), Expires: 08/20/2026Start: 08-20-2025 End: 58-15-5712OPB-B27 antigenHLA-B27 antigen Lab Routine Polyarthralgia Expected: 08/20/2025 (Approximate), Expires: 08/20/2026NOMD HealthcareComment on above:Expected: 08/20/2025 (Approximate), Expires: 08/20/2026Start: 08-20-2025 End: 32-88-9726VWHJ DISEASE ANTIBODY (IGG), IMMUNOBLOTLYME DISEASE ANTIBODY (IGG), IMMUNOBLOT Lab Routine Polyarthralgia Expected: 08/20/2025 (Approximate), Expires: 08/20/2026[facility] HealthcareComment on above:Expected: 08/20/2025 (Approximate), Expires: 08/20/2026Start: 08-20-2025 End: 33-22-0038Idsqyze Ab [Titer] in Serum by ImmunofluorescenceANA Lab Routine Polyarthralgia Expected: 08/20/2025 (Approximate), Expires: 08/20/2026[facility] HealthcareComment on above:Expected: 08/20/2025 (Approximate), Expires: 08/20/2026Start: 08-20-2025 End: 17-51-8760Yskcrwqfbd factor [Units/volume] in Serum or PlasmaRheumatoid factor Lab Routine Polyarthralgia Expected: 08/20/2025 (Approximate), Expires: 08/20/2026[facility] Healthcare Work Phone: Comment on above:Expected: 08/20/2025 (Approximate), Expires: 08/20/2026Start: 08-20-2025 End: 16-96-6924CUQMHYOA LUPUS ERYTHEMATOSUS (SLE), DISEASE ACTIVITY PANEL SYSTEMIC LUPUS ERYTHEMATOSUS (SLE), DISEASE ACTIVITY PANEL Lab Routine Polyarthralgia Expected: 08/20/2025 (Approximate), Expires: 08/20/2026[facility] HealthcareComment on above:Expected: 08/20/2025 (Approximate), Expires: 08/20/2026Start: 08-20-2025 End: 84-74-8960Eicaz [Mass/volume] in Serum or PlasmaUric acid Lab Routine Polyarthralgia Expected: 08/20/2025 (Approximate), Expires: 08/20/2026[facility] HealthcareComment on above:Expected: 08/20/2025 (Approximate), Expires: 08/20/2026Start: 08-20-2025 End: 71-12-2663Ywkzlis encounter vnbqaijof98/17/2025 9:15 AM EDT Office Visit [facility] [address] [place] [phone] Ryan Milton PA [address] [place] [phone] Acute right hip pain (Primary Dx); History of total right hip replacementNOJohnson County Hospital OrthopaedicsComment on above:Acute right hip pain (Primary Dx); History of total right hip replacementStart: 73-61-9773Pnbnvrrwl vaccination Influenza Vaccine (Season Ended)[facility]: 05-05-2025 End: 38-44-7124Oinoulb encounter xdwnrantb79/02/2025 10:40 AM EDT Office Visit [facility] [address] [place] [phone] Uzma Joel NP [address] [place] [address] WADE OVALLEUEStart: 02-16-2025 End: 16-08-1830Dktydps encounter wzdwkknal69/15/2025 10:40 AM EDT Office Visit [facility] [address] [place] [phone] Uzma Joel, DAVIS [address] [place] W[place] WILDERtart: 02-15-2025 End: 93-93-4098Amsugtq encounter procedureWADE MELGOZAomment on above:Arrived Start: 03-90-2072Oqpuvghdk for malignant neoplasm of colonColonoscopyKettering Health Daytonca Health SystemStart: 01-20-2025 End: 31-03-1972Hgpexjft Oyuqrrh4301/20/2025 2:00 PM EDT Clinical Support [facility] [address] [place] [address] aGUY SANON Start: 01-18-2025 End: 58-36-6678Jmudlwm encounter qgyffxfte63/17/2025 2:30 PM EDT Office Visit [facility] [address] [place] [address] Migel Dunlap, PhD [address] [place], [place] [id number] WADE DYKSEYStart: 01-14-2025 End: 85-85-3543Wrvbsyrya (Vitamin B12) [Mass/volume] in Serum or PlasmaVitamin B12 Lab Routine Memory loss Expected: 01/14/2025 (Approximate), Expires: 01/14/2026[facility] HospitalComment on above:Expected: 01/14/2025 (Approximate), Expires: 01/14/2026Start: 01-14-2025 End: 61-44-4649SYE awake or drowsyEEG awake or drowsy Neurology Routine Memory loss Expected: 01/14/2025 (Approximate), Expires: 01/14/2026[facility] Comment on above:Expected: 01/14/2025 (Approximate), Expires: 01/14/2026Start: 01-14-2025 End: 66-49-7631Fpwqkh [Mass/volume] in Serum or PlasmaFolate Lab Routine Memory loss Expected: 01/14/2025 (Approximate), Expires: 01/14/2026[facility] Comment on above:Expected: 01/14/2025 (Approximate), Expires: 01/14/2026Start: 01-14-2025 End: [id number] Brain WO contrastMR brain wo contrast Imaging Routine Memory loss Expected: 01/14/2025, Expires: 01/14/2026[facility] Work Phone: comment on above:Expected: 01/14/2025, Expires: 01/14/2026Start: 01-14-2025 End: 45-31-4164Gpppkpisqcf [Units/volume] in Serum or PlasmaTSH Lab Routine Memory loss Expected: 01/14/2025 (Approximate), Expires: 01/14/2026NOMS HealthcareComment on above:Expected: 01/14/2025 (Approximate), Expires: 01/14/2026Start: 01-14-2025 End: 81-22-4496Nbtlmkj encounter xpzhyjpjl55/13/2025 11:15 AM EDT Office Visit WADE SANON [address] [place] [id number] Mc Parry DO [address] [place] [address] Rich SANONComment on above:ArrivedStart: 99-68-6074Odxit BMI ScreeningAdult BMI ScreeningProMckitrick Hospitalca [facility] SystemStart: 87-26-6381Sguqwvh ScreeningTobacco ScreeningProMckitrick Hospitalca [facility] SystemStart: 09-16-2024 End: 81-57-2892Dkcgyqr encounter ybklgzlhl09/13/2024 10:30 AM EST Office Visit [facility] [address] [place] [address] Maria L Bean, DANYA-ACADEMIC AFFAIRS COORDINATOR [address] [place] [address] [facility] SurgeryStart: 09-08-2024 End: 00-22-8955Owgcangy Non-[facility] ProcedureUnlisted Non-[facility] Procedure Procedures Routine Inclusion cyst Expected: 09/08/2024, Expires: 09/02/2025 [facility] Work Phone: Comment on above:Expected: 09/08/2024, Expires: 09/02/2025Start: 69-91-1396AOPWO-19 Vaccine ( season)COVID-19 Vaccine ( season)ProMWadena Clinic SystemStart: 96-33-2428Nwhtnpaql vaccinationProParma Community General Hospital SystemStart: 02-05-2024 End: 03-30-3096Ulopesi encounter imldthqos57/03/2024 7:30 AM EDT Procedure visit [facility] [address] [place] [address] Rehana Reinoso DO [address] [id number] [facility] SurgeryStart: 58-13-3215Sfbgxqzek for malignant neoplasm of colonColonoscopyProParma Community General Hospital SystemStart: 70-72-6267FKH, Provider: Lei Perez, Status: Pen, Time: 9:50 AM FUV, Provider: Lei Perez, Status: Pen, [facility]: 9:50 [facility] 600 [facility] Work Phone: Start: 02-33-5523VOOZV-19 Vaccine ( season) COVID-19 Vaccine ( season)ProMWadena Clinic SystemStart: 07-05-2023 Influenza vaccinationInfluenza VaccineSelect Medical [facility] SystemStart: 07-05-2022 Influenza vaccinationINFLUENZA (Season Ended)[facility]: 07-04-2022 [facility] Work Phone: Start: 36-15-3220Rfwwwl biopsyCT guided biopsy [facility]tart: 78-95-7323Fsqohadsueol Vaccine: 65+ Years (2 of 2 - PCV)Pneumococcal Vaccine: 65+ Years (2 of 2 - PCV)[facility] HospitalStart: 02-15-2022 End: 70-04-4950MOW W Auto Differential panel - BloodCBC + DIFF Lab Routine Malignant neoplasm of upper-outer quadrant of left breast in female, estrogen receptor positive (HCC) Expected: 02/15/2022, Expires: 04/17/[facility] Work Phone: Comment on above:Expected: 02/15/2022, Expires: 04/17/2022tart: 02-15-2022 End: 67-74-1912Xhtvgrdkclndc metabolic 2000 panel - Serum or PlasmaCOMP METABOLIC PANEL Lab Routine Malignant neoplasm of upper-outer quadrant of left breast in female, estrogen receptor positive (HCC) Expected: 02/15/2022, Expires: 04/17/2022[facility] Work Phone: Comment on above:Expected: 02/15/2022, Expires: 04/17/2022tart: 33-30-8824INVRCKB DIRECTIVE DISCUSSIONADVANCE DIRECTIVE DISCUSSIONGreene Memorial Hospitaltart: 11-32-2235Wrqckedet vaccinationINFLUENZA (Season Ended)[facility] Hospitaltart: 77-81-2265OSYSZ-19 VACCINE (3 - Booster) COVID-19 VACCINE (3 - Booster)[facility]: 22-25-0880EOYMEDF DIRECTIVE DISCUSSIONADVANCE DIRECTIVE DISCUSSIONGreene Memorial Hospitaltart: 54-80-3244GJBF DENSITYBONE DENSITYGreene Memorial Hospitaltart: 85-64-2711Hpzf Risk ScreeningFall Risk ScreeningNovant Health New Hanover Regional Medical Centertart: 95-48-0787EVGIGEFYK AGE 65 AND OVER WITH 5YR LOOKBACK (#1)PNEUMOVAX AGE 65 AND OVER WITH 5YR LOOKBACK (#1)[facility] Hospitaltart: 06-20-5774WCQXJBOK SCREENDIABETES SCREENGreene Memorial Hospitaltart: 31-37-2060Gvmjiqoiieudmc of varicella zoster vaccineZoster (Shingles) Vaccine (1 of 2)[facility]icEssentia Health SystemStart: 98-38-0664Yysrjfkrd for malignant neoplasm of colonGreene Memorial Hospitaltart: 99-51-7434VDIJYTWY VACCINE (1 of 2)SHINGRIX VACCINE (1 of 2)[facility] Hospitaltart: 28-39-1500EDQXNUAUK (FIT-DNA)COLOGUARD (FIT-DNA)[facility]tart: 76-26-6386OnoqlvguvxySVSSFASUECTSfeiqckxr Clinic Start: 66-60-7511IFYRGMKSBV CANCER SCREENINGCOLORECTAL CANCER SCREENINGGreene Memorial Hospitaltart: 27-42-8546AP COLONOGRAPHYCT COLONOGRAPHYGreene Memorial Hospitaltart: 77-99-9635QJRWE OCCULT BLOODFECAL OCCULT BLOODGreene Memorial Hospitaltart: 2000 LIPID SCREENLIPID SCREENGreene Memorial Hospitaltart: 06-46-6442PUWLKCXSPWRGX SIGMOIDOSCOPYGreene Memorial Hospitaltart: 79-59-1423EkvkeczxcrnHZHIHWFOPVsznmxlvd ClinicStart: 81-94-1636Apqjotcre for malignant neoplasm of breastMaogramLIFEPOINT HOSPITALS HealthcareStart: 95-44-6475IPcV,Tdap and Td Vaccines (1 - Tdap)DTaP,Tdap and Td Vaccines (1 - Tdap)[facility] Centertart: 41-51-0132Rkegk microalbumin profileDTAP,TDAP,TD (1 - Tdap)[facility]: 99-72-6353Gvopt BMI Follow Up PlanAdult BMI Follow Up PlanNovant Health New Hanover Regional Medical Centertart: 99-27-3155ZGMZHUFWE C SCREENINGHEPATITIS C SCREENINGGre[facility] Memorial Hospitaltart: 56-54-3184VCY SCREENING HIV SCREENINGGreene Memorial Hospitaltart: 58-10-7350Wjpny depression screening assessmentDEPRESSION SCREENINGGreene Memorial Hospitaltart: 01-18-1956Medicare Annual Wellness VisitMedicare Annual Wellness VisitNovant Health New Hanover Regional Medical Centertart: 82-29-3939Aphkpkjry for malignant neoplasm of colonLIFEPOINT HOSPITALS Healthcare End: 55-22-4453DoogyhigbneIergygorxua GI Routine History of colon polyps 1 Occurrences starting 01/03/2024 until 01/02/2025[facility] Work Phone: Comment on above:1 Occurrences starting 01/03/2024 until 5Cryoglobulin [Presence] in SerumOhio State [facility] Work Phone: Patient EducationKidnFisher-[facility]itus [facility] Work Phone: XR Knee - left 1 or 2 ViewsXR knee 1 or 2 views left Imaging Routine Acute pain of left knee 12/02/2024 10:39 AM [facility] Work Phone: [facility] Immunizations Immunization DateImmunizationNotesCare CfpqbwzaPinrnony21-23-7311Wzecmnp Bivalent Booster VaccinationJr. Stepanic DO Work Phone: [facility] HospitalUwabhbyjtj63-75-0780ZMUNS-93 mRNA-1273 (Moderna) MD Florinda Flowers Work Phone: [facility]10-18-2021influenza virus vaccine, split virus (incl. purified surface antigen)Florinda Flowers Other [employer] Other 190426-18-6848ukfuutujx virus vaccine, unspecified formulationMaria L Bean GUN PERFORATOR-[facility] Work Phone: [facility]10-18-2021Seasonal trivalent influenza vaccine, adjuvanted, preservative freeFlorinda Flowers Work Phone: [phone]-SjwixAlomere Health Hospital 600 DO Work Phone: [phone]bmv polysaccharide vaccine, 23 valentMarsaleem Flowers Work Phone: [facility]03-09-2021COVID-19 mRNA-1271 (Moderna)MD Florinda Flowers Work Phone: [facility]03-09-2021COVID-19 vaccine (UNSPECIFIED)Errol Corbin MD Work Phone: [facility] HamiltonTvrtsy62-52-0207TDMXZ-15 mRNA-1273 (Moderna) MD Florinda Flowers Work Phone: [facility]02-08-2021COVID-19 vaccine (UNSPECIFIED)Errol Corbin MD Work Phone: [facility] HamiltonOsurqz79-18-5275pcvrothka virus vaccine, unspecified formulationFlorinda Flowers Work Phone: [phone]-ZipqfWorthington Medical Center 600 DO Work Phone: [phone], seasonal, injectableJr. Stepanic DO Work Phone: [facility] HospitalPhrvezrmmh16-96-1621loukzdrac virus vaccine, unspecified formulationMarcia E Flowers Work Phone: [phone]-OrpgnAlomere Health Hospital 600 DO Work Phone: [phone]sps virus vaccine, unspecified formulationMarcia E Flowers Work Phone: [phone]-ProxpAlomere Health Hospital 600 DO Work Phone: [phone] gmvgywlux-R2X4-82, preservative-free, injectableMarcia E Flowers Work Phone: [phone]-VlqwjAlomere Health Hospital 600 DO Work Phone: Payers DatePayer CategoryPayerPolicy [id number]-jck [id number] Care Other (unspecified) [facility] Member Subscriber Plan / Payer (Effective 2021-Present) Name: Uzma Ramirezelle Relation to Subscriber: Self Name: Uzma Ramirezelle Payer ID: [id number] (NAIC) Group ID: Not on file Type: Not on file Address: [facility] [id number] [place] [id number]. Private Health Insurance1.2.840.463493.1.1[id number] [id number] 1.2.840.750974.1.13.159.2.7.3.684700. Medicare1.2.840.014449.1.13.424.2.7.9.253086.102.58624-55-2533Wkaxquy Health Beumyiayutwoeqrg0351 1.2.840.455001.1.13.159.2.7.3.860466.315 1960Medicare [id number] 259cy802-wztb-[id number]-[id number] 2.0.1.112291.3.57[id number] 2.0.1.802970.3.57[id number] 2.0.1.572343.3.57[id number] 2.840.1.438385.3.57[id number] 2.840.1.269784.3.579.2.19568-65-5402Yiolbii6578737 2..1.751502.3.579.2.49435-08-7734Dyujmic2744555 2.840.1.282932.3.579.2.27821-59-9517Tiqdydg0591626 2.840.1.172708.3.57[id number] 2.840.1.306923.3.57[id number] 2.840.1.372733.3.579.[id number] 2.16840.1.512198.3.579.2.895790-06-4129Lhtbqfs37866543 2.16.840.1.445692.3.579.[id number] 2.16840.1.049999.3.579.[id number] 2.840.1.587451.3.579.2.045455-14-0391Ofkaeqe0636136 2.840.1.276467.3.579.2.405547-61-1558Nkvypbr1357651 2.840.1.329312.3.579.2.399799-81-4966Mplhsec8772770 2.840.1.658543.3.579.2.349300-08-4436Nhqfxfm0402051 2.840.1.235848.3.579.2.340237-79-3307Vmioskk2236190 2.840.1.382418.3.579.2.247448-67-1384Xvuxvgy7722384 2.840.1.278744.3.579.2.510612-23-4581Arvtwxb3327102 2.840.1.058132.3.579.2.244328-54-8582Xegynyx2952860 2.840.1.887279.3.57[id number] 65e2rtj9-a1a2-33y5-4gj9-nul3g9w0s7t5ZtbifhjChiqpgi95709741 2.16840.1.679073.3.579.2.937Bvywroj11265307 2.840.1.887652.3.579.2.531 Meqvccq14096912 2..840.1.003633.3.579.2.531 Social History DateTypeDetailFacilityStart: 01-27-2015 End: 32-04-9307Nfrkune smoking status NHISFormer smokerKettering Health HamiltonHistory of tobacco useCigarette SmokerGreene Memorial Hospitaltart: 01-27-2015 End: 88-45-2417Riqdapvjtl smoked current (pack per day) - ReportedGreene Memorial Hospitaltart: 01-27-2015 End: 11-56-3713Gcyrggr use and exposureNever usedGreene Memorial Hospitaltart: 01-27-2015 End: 42-34-4813Edgnjyf intakeCurrent drinker of alcohol (finding)[facility] Hospitaltart: 11-69-5475Kfd Assigned At BirthNot on fileGreene Memorial Hospitaltart: 86-06-3602Cdm Assigned At [facility]: 09-02-2024 End: 68-73-8531Hff Assigned At [facility] Search123 Other Start: 07-04-2022 End: 00-14-3497Asuualx smoking status NHISNever smoked tobacco (finding) [facility] HospitalHistory of tobacco useCurrent smokerProParma Community General Hospital SystemStart: 41-81-1666OlxhedodoGuupenzDliEdoxxp Health SystemStart: 17-75-3745Afcuokt CommentTried cigarettes when 17 years oldSelect Medical [facility] SystemStart: 65-64-3665Omufktd CommentrarelyPPeoples Hospital SystemStart: 54-61-6136TcgTsydjy (finding)[facility] SystemStart: 12-25-2023 End: 98-66-3597Ibtpzbxtl beverage intakeEx-drinker (finding)[facility] Medical Equipment Procedure CodeEquipment CodeEquipment Original TextEquipment IdentifierDates [facility] 40gm Rpl [id number]+[id number] - Sn/A - [id number] ()[id number](10)[id number](21)N/A, [id number]_imp FDAStart: 45-08-3713Futfyt Bn Bio 40gm Rpl 727638+071625+469674 - Sn/A - [id number] ()[id number](17)[id number](10)[id number](21)N/A, 571852_imp FDAStart: 08-62-6813Pbhgcc Artc 3-4 E-F 10mm Kn Fx Brng Prlng Nxgn Lpsflx Strl Lpsflx Rpl 787322 + 71397 - Sn/A - [id number] ()[id number]([id number]([id number](21)N/A, 571841_imp FDAStart: 06-25-2023 Component Fem E Kn Rt Lpsflx Gndr Melissa? Nxgn Cocr Rpl [id number] - Sn/A - [id number]()[id number]([id number]()N/A, 571845_imp FDAStart: 49-13-2034Ofareazgc Ptlr 32mm Persona Alply Kn Strl Lf - Sn/A - [id number]_impStart: 54-64-8407Riept Tib 86g13yy Nxgn Kn Cmnt Mdlr Stm Prect 4 Tiv Pmma Rpl 852660 + 953940 - Sn/A - [id number] ()[id number](17)[id number](10)[id number](21)N/A, 571843_imp FDAStart: 06-25-2023 Goals DatePatient GoalDesired Activity/StatePersonal health goalComment on above: Evaluation of progress towards goal: Home with family support and [facility] services Clinical Notes 02-06-2022 to 08-25-2025 Note Date & VxobTffeUibtmcfd85-02-5567 Telephone encounter Note* Telephone Encounter - LUIS Franklin - 08/25/2025 [...] results: Pt verbalized understanding.. has seen Dr. Ortiz in the past for rheum but hasn't followed up in years.. pt agreeable to see him given past experience [facility] HospitalBdxsueszpl44-59-5950 Miscellaneous Notes* Telephone Encounter - LUIS Franklin - 08/25/2025 [...] results: Pt verbalized understanding.. has seen Dr. Ortiz in the past for rheum but hasn't followed up in years.. pt agreeable to see him given past experience documented in this encounterFulton State HospitalOsnjfkxeev38-37-4630 History of Present illness Narrative* LUIS Franklin - 08/20/2025 9:15 AM EDT Images from the original note were not included. Orthopedic Office note: NAME: Uzma Ramirez : 1955 EST PT WITH FLARE UP RT HIP PAIN ~2DAYS- NO KNOWN INJURY HX RT IAN 10/07/[address] ADRIAN XRAY RT HIP TODAY EPIC 08/20/25 PAIN [...] requiring urgent evaluation. Visit was preformed using [employer]-screen tacker speech recognition. documented in this encounterFulton State HospitalGemcgzdtmw84-76-8050 History of Present illness Narrative* Uzma Marycruz, DAVIS - 02/16/2025 10:40 AM EDT Images from the original note were not included. Chief Complaint Patient presents with Memory Loss Subjective Uzma Ramirez, 69 y.o., female new patient here in neurologic consultation at the request of Dr Florinda Flowers for amnesia. HPI Uzma is here today with her daughter. She has had diarrhea since starting the doxepin. It has nothelped her sleep at all. No diet changes. [...] Review and summary of old records: MMSE 25/ TSH 1.834, B12 325 folate 16.30 EEG [...] improve her sleep we are going to trysome Flexeril before we go to the controlled substances. I am hopeful this will make her more comfortable in bed and she may in turn get some sleep. She has had this in the past without s/e she believes. . She works at the [employer] at [employer] and will be starting this in March [...] to clinic: 2-3 months documented in this [facility]04-14-2025 History of Present illness Narrative* Migel Dunlap, PhD - 02/15/2025 2:30 PM EDT Images from the original note were not included. Neuropsychology Migel Dunlap, PhD NEUROPSYCHOLOGICAL EVALUATION FEEDBACK Findings are recommendations discussed. Questions addressed. Thank you for allowing me to participate in the care of this individual. Please contact me with [employer] at [phone]. documented in this [facility]04-01-2025 History of Present illness Narrative* Migel Dunlap, - 02/02/2025 12:30 PM EDT Images from the original note were [...] family neurological history. Denied any psychiatric history asidefrom prolonged grief. No history of alcohol/substance abuse or smoking. Sycuan language Faroese. Completed a bachelor's degree. 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 [...] of engagement which is expected to have impactedperformance. Findings are therefore interpreted with caution. Vision/Visuoconstruction: Binocular near-point visual acuity 20/25. Visual rodriguez full to confrontation. Visuoconstruction 3rd %ile. Nonverbal abstract reasoning 42nd %ile. Copy of a complex geometric design >16th %ile. 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 [employer] strength 42nd %ile with right- hand, 66th %ile with left. Speeded graphomotor transcoding <1st %ile. Attention/Working Memory: Auditory attention/working memory 2nd %ile (5 digits forward, 3 digits backward, 3 digits during sequencing). Speeded visual scanning/attention 2nd %ile. Speeded visual divided attention d/c. Speech/Language: Expressive speech largely fluent but notable for word finding difficulty. Comprehension adequate for conversational purposes; however, she struggled to understand task instructions at times requiring repetition. Single- word reading 14th %ile. Generative naming to phonemic [...] appears there is a degree of expressive languageand executive dysfunction; however, exact extent and etiology is not possible to assay due to compromised validity. 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 Mild depression, prolonged bereavement, and poor sleep quality arealso likely contributing to her cognitive struggles. RECOMMENDATIONS: [...] memory aids such as smartphone or calendar/daily demand planner. Active listening, such as repeating and [...] of this individual. Please contact me with [employer] at [phone]. documented in this encounterFulton State HospitalCurjaqoboq90-83-7288 History of Present illness Narrative* Mc Parry, - 01/14/2025 11:15 AM EDT Images from the original note were not included. Chief Complaint Patient presents with Memory Loss Subjective Uzma Faizan Ramirez, 69 y.o., female new patient here in neurologic consultation at the request of Dr Florinda Flowers for amnesia. HPI The patient is here today with her daughter. The patient states that her symptoms started after kalina unexpectedly in front of her 2 years [...] during the day. She states that she feelstired during the day. She tries to go to bed around 10pm. She will then get up around 5 am. She will toss and turn all night long and cannot turn her brain off. She has had issues sleeping for a long time. She took Ambienas needed for years for about 10 years. [...] time after he collapsed. He refused to [facility]. He wanted to take a nap. About [...] Surgical History: Procedure Laterality Date BACK SURGERY 2005 DR FLOWERS BACK SURGERY 2016 DR FLOWERS [...] for her. She is very forgetful on short- term things but she can do other things like drive her car manage the finances and other. She does get very tearful in the room today. She does not need a full dementia workup to makesure we are not missing anything that could [...] we will go ahead and start her onsome doxepin as the poor sleep and sleep [...] to clinic: 2-3 months documented in this encounterFulton State HospitalFgzvpttyoz56-58-5863 History of Present illness Narrative* Jr. Dell Adrian DO - 12/02/2024 10:00 AM EST Images from the original note were not included. HISTORY OF PRESENT ILLNESS: EST PT Uzma Ramirez is an 69 y.o. @ female. (EST PT) - 2 YR RECHECK - LT TKA 01/17/22 (~2 YRS, 10 MONTHS) XRAYS TODAY, 12/02/24 IN EPIC XRAYS 02/21/22 IN EXA PREDNISONE 5MG DAILY FOR ARTHRITIS (DR. FLOWERS) MDP 02/21/22, 03/07/22 NO CORTISONE INJ FINISHED PT @[facility] NO PAIN MANAGEMENT DOING WELL. TAKING PREDNISONE [...] Tobacco Use: Medium Risk (09/16/2024) Received from [facility] Patient History Smoking Tobacco Use: Former Smokeless [...] neurovascularly intact. Patient was able to motor feettoes and ankles in all anatomic planes bilaterally [...] for requiring urgent evaluation. documented in this encounterFulton State HospitalFlaftbcsxb90-17-4031 History of Present illness Narrative* WALDEMAR Malloy - 09/16/2024 10:30 AM EST Images from the original note were not included. Subjective Uzma Ramirez is a 68 y.o. female status post excision of left posterior scalp inclusion cyston 09/08/2024. She is doing well and has [...] as needed. Inclusion cyst [L72.0] WALDEMAR MALLOY [facility] [place] This note was created with the assistance of a speech recognition program. While intending to generate a timely document that accurately reflects the content of the visit, no guarantee can be provided that every grammatical or spelling mistake has been or will be identified or corrected. Thank you for your understanding. WALDEMAR Malloy 09/16/24 1117 documented in this encounterCleveland Clinic [facility]cy Hospital10-30-2024 History of Present illness Narrative* Rehana Reinoso, DO - 09/02/2024 9:00 AM EDT Images from the original note were not included. [facility] [address] [place] [address] CONSULT NOTE CHIEF COMPLAINT Chief Complaint Patient presents with Cyst Lump behind Left ear, referred by Dr. Lionel Gusman Shona Ramirez is a 68 y.o. female who presents with complaints of a lump on the left posterior scalp which has been present for about a month. His slightly painful and uncomfortable. She deniesany fevers chills or night sweats. She denies any other medical problems. MEDICATION Current Outpatient Medications: alendronate (FOSAMAX) 70 mg tablet, Take 1 tablet (70 mg total) by mouth every 7 days., Disp: , Rfl: amLODIPine (NORVASC) 5 mg tablet, Take 1 tablet (5 mg total) by mouth in the morning., Disp: , Rfl:3 cholecalciferol, vitamin D3, (VITAMIN D3 ORAL), daily., [...] 0.225 gram tablet, Please see instructional sheet givenby physicians office., Disp: 24 tablet, Rfl: 0 zolpidem (AMBIEN) 10 mg tablet, nightly as needed., Disp: , Rfl: 1 ALLERGY Allergies Allergen Reactions Fentanyl Other (See Comments) Leg Weakness Oxycodone-Acetaminophen GI Disturbance Lamisil [Terbinafine] Rash Penicillins Rash Sulfa Dyne Rash MEDICAL HISTORY Past Medical History: Diagnosis Date Arthritis Breast cancer ([facility] 2002 Hypertension Obesity Osteopenia Urinary frequency Visual impairment SURGICAL HISTORY Past Surgical History: Procedure Laterality Date BACK SURGERY x2 BREAST RECONSTRUCTION Left COLONOSCOPY 04/2018 MASTECTOMY Left 2002 at [facility] REPLACEMENT TOTAL JOINT KNEE Right 06/25/2023 Performed by Dell Adrian Jr., DO at [facility] REPL[facility]EMENT TOTAL KNEE Left 01/2022 TOTAL [...] left scalp is a proximally a 1-1/2-2 cmprotruding cyst versus lipoma although it has only [...] MAC in the prone position at the [facility]. Risks benefits alternatives to procedure may include [...] patient/family/caregiver Referring and communicating with other health lpn care manager Inclusion cyst [L72.0] Rehana Reinoso DO This note was created with the assistance of a speech recognition program. While intending to generate a timely document that accurately reflects the content of the visit, no guarantee can be provided that every grammatical or spelling mistake has been or will be identified or corrected. Thank you for your understanding. documented in this encounterKettering Health DaytonInfakt.pl Lengqq85-46-0575 Miscellaneous Notes* Telephone Encounter - Rita Baker CMA - 02/14/2024 9:26 AM EDT ----- Message from Rehana Reinoso DO sent at 02/14/2024 9:03 AM EDT ----- Please tell her that she had several precancerous polyps and 1 of them was a tubulovillous adenoma which is more precancerous and I recommend she have a surveillance colonoscopy in 1 year instead of 5. Please put her on the schedule for 1 year. Thanks, Dr. Lacey documented in this encounterCleveland Clinic Mercy Hospital04-12-2024 Telephone encounter Note* Telephone Encounter - Rita Baker CMA - 02/14/2024 9:26 AM EDT ----- Message from Rehana Reinoso DO sent at 02/14/2024 9:03 AM EDT ----- Please tell her that she had several precancerous polyps and 1 of them was a tubulovillous adenoma which is more precancerous and I recommend she have a surveillance colonoscopy in 1 year instead of 5. Please put her on the schedule for 1 year. Thanks, Dr. Lacey [facility]03-01-2024 History of Present illness Narrative* Maria L Bean, GUN PERFORATOR-ACADEMIC AFFAIRS COORDINATOR - 01/03/2024 11:00 AM EST Images from the original note were not [...] any changes in her bowels including diarrhea, con stipation, abdominal pain, melena, hematochezia, unexplained weight loss. [...] History: Diagnosis Date Arthritis Breast cancer ([facility]) 2002 Hypertension Obesity Osteopenia Urinary frequency Visual impairment Past Surgical History: Procedure Laterality Date BACK SURGERY x2 BREAST RECONSTRUCTION Left COLONOSCOPY 04/2018 MASTECTOMY Left 2002 at [facility] REPLACEMENT TOTAL JOINT KNEE Right 06/25/2023 Performed by Dell Adrian Jr., DO at [facility] TOTAL KNEE Left 01/2022 TOTAL [...] by mouth in the morning., Disp: , Rfl:3 cholecalciferol, vitamin D3, (VITAMIN D3 ORAL), daily., [...] 0.225 gram tablet, Please see instructional sheet givenby physicians office., Disp: 24 tablet, Rfl: 0 [...] the office for colonoscopy due to history ofcolon polyps. Plan Colonoscopy with possible biopsy and/or polypectomy. Risks, benefits, and alternatives discussed with patient. Educated on bowel evacuation preparation. Patient verbalizes understanding and wishes toproceed. Evaluation included: Preparing to see the patient (e.g., review of tests) Obtaining and/or reviewing separately obtained history Performing a medically appropriate examination and/or evaluation Counseling and educating the patient/family/caregiver Referring and communicating with other health lpn care manager History of colon polyps [Z86.010] WALDEMAR MALLOY [facility] General Surgery [place] This note was created with the assistance of a speech recognition program. While intending to generate a timely document that accurately reflects the content of the visit, no guarantee can be provided that every grammatical or spelling mistake has been or will be identified or corrected. Thank you for your understanding. WALDEMAR Malloy 01/03/24 1155 [facility] Evaluation note* Encounter Date Diagnosis Assessment Notes Treatment Notes Treatment Clinical Notes Oct, Primary insomnia (ICD-10 - F51.0 1) Oct,Essential (primary) hypertension (ICD-10 - I10) [facility] 10-02-2023 Evaluation note* Encounter Date Diagnosis Assessment Notes Treatment Notes Treatment Clinical Notes Aug, Primary insomnia (ICD-10 - F51.0 1) Aug,rimary hypertension (ICD-10 - I10) [facility] Other 08-15-2023 Evaluation note* Encounter Date Diagnosis Assessment Notes Treatment Notes Treatment Clinical Notes Jun, Essential (primary) hypertension (ICD-10 - I10) Chronic problem - stable; refilled meds. Jun,reoperative examination (ICD-10 - Z01.818)Uzma is in good health. I do not have labs from [facility], but barring any abnormalities she is low risk for upcoming knee replacement. Jun,hronic kidney disease, stage 3a (ICD-10 - N18.31)Established with Nephrology - continue to monitor and keep bp controlled. [facility] Other 02-20-2023 Evaluation note* Encounter Date Diagnosis [...] reviewed and amended by provider signed below. Dec,rimary hypertension (ICD-10 - I10)chronic problem - due for labs. Dec,utaneous candidiasis (ICD-10 - B37.2)recurrent problem. r/o diabetes Dec,rimary insomnia (ICD-10 - F51.01)chronic problem. denies issues with medication. [facility] Other 02-02-2023 Evaluation note* Encounter Date Diagnosis Assessment Notes Treatment Notes Treatment Clinical Notes Dec, Primary hypertension (ICD-10 - I 10) [facility] 11-27-2022 Evaluation note* Encounter Date Diagnosis Assessment Notes Treatment Notes Treatment Clinical Notes Sep, Contact with and (ross spected) exposure to other viral communicable diseases (ICD-10 - Z20.828) Sep,Influenza A (ICD-10 - J10.1) Sep,therInfluenza: adult home care material was printed Drink plenty fluids, get plenty of rest. Take the Zofran as prescribed as needed for nausea and vomiting. Take the prednisone as prescribed until gone for inflammation. Follow-up with your family physician if no improvement in 2 to 3 days [facility] Other 10-11-2022 Evaluation note* Encounter Date Diagnosis [...] to avoid NSAIDs Follow-up in 1 year Aug,roteinuria, unspecified (ICD-10 - R80.9)Likely from and used glomerulomegaly. Proteinuria is mild. Protein cardiology 250 mg/g Aug,Hematuria, unspecified (ICD-10 - R31.9)Mild proteinuria and hematuria. I will continue to monitor UA. Kidney biopsy did not show glomerulon ephritis or AIN Aug,rimary hypertension (ICD-10 - I10)Blood pressure is very well controlled at home. I will continue same blood pressure medications. I asked the patient to continue monitoring blood pressure at home Aug,NSAID long-term use (ICD-10 - Z79.1)Patient took high-dose Motrin 800 mg twice daily years before for knees and back pain. Patient stopped NSAIDs in 2016. Now only uses arthritis pain Aug,NA positive (ICD-10 - R76.8)Patient follows with Dr. Ryan Ortiz in rheumatology clinic. Patient was diagnosed with polymyalgia rheumatica for which she is taking low-dose prednisone. C3-C4 has been within normal limits. Repeated WADE is negative. Kidney biopsy did not show glomerulonephritis [facility] Other 08-09-2022 Evaluation note* Encounter Date Diagnosis Assessment Notes Treatment Notes Treatment Clinical Notes Jun, Chronic kidney disease, stage 3a (ICD-10 - N18.31) Chronic kidney disease likely from NSAID use and hypertension nephropathy versus autoimmune diseaseas the patient has hematuria and proteinuria. I will schedule patient for kidney biopsy. I will do serology work-up for vasculitis and autoimmunedisease. Paraprotein work-up has been negative. Patient is following with Dr. Perez in cardiology clinic for hypertension management I asked the patient to stay away completely from NSAIDs Jun,Hematuria, unspecified (ICD-10 - R31.9)May be from chronic patient nephritis induced by NSAIDs. Patient stopped NSAIDs years ago. Autoimmune disease and/or vasculitis needs to be ruled out. We will schedule kidney biopsy Jun,roteinuria, unspecified (ICD-10 - R80.9) Jun,rimary hypertension (ICD-10 - I10)Blood pressure is elevated. Might be from Naprosyn patient is taking currently for her tooth pain after extraction. Patient states she is going to stop NSAIDs completely I asked the patient to monitor her blood pressure at home Jun,NSAID long-term use (ICD-10 - Z79.1)Patient took high-dose Motrin 800 mg twice daily years before for back pain. Patient stopped NSAIDsin 2016. Patient stated she is now taking Naprosyn for tooth pain but she is going to stop it today Jun,NA positive (ICD-10 - R76.8)Patient follows with Dr. Ryan Ortiz in hematology clinic. Patient was diagnosed with I will manage her medically on a low-dose prednisone. C3-C4 has been within normal limits WADE positive 1:160 with speckled pattern I will schedule kidney biopsy to rule out lupus nephritis [facility] Other 04-14-2022 NoteHNO ID: [id number] Author: Errol Corbin MD Service: ? Author [...] Normal RADIOLOGY/OTHER STUDIES: 06/28/2021 Bilateral screening mammogram ([facility]) No significant suspicious findings in the right breast or left breast. Routine mammogram in 12 months recommended. 02/28/2021 Bone density DEXA ([facility]) Osteoporosis ASSESSMENT/PLAN: 1. Malignant neoplasm of left breast in female, estrogen receptor positive (HCC) - ICD9: 174.4, V86.0, ICD10: C50.412, Z17.0 (primary diagnosis) Stage IIB (pT2, N1mic, M0) ER/NH positive HER-2 negative left-sided breast cancer diagnosed November 2002. Status post left modified radical right mastectomy and lymph node dissection 12/01/2002 (Dr. Dinesh Gomez). Postop the patient received adjuva (more content not included)...[facility]04-05-2022 Miscellaneous Notes* Telephone Encounter - Corinne Bentley MA - 02/06/2022 11:[address]/sign lab orders for 02/15/22. Thanks. Corinne Reyes MA [facility]* Diagnosis Malignant neoplasm of upper-outer quadrant of left breast in female, estrogen receptor positive (HCC)- Primary [facility] noteNo assessment information availableOhio [facility] Work Phone: Evaluation noteNo InformationNort Search123 Other Evaluation note* Diagnosis Onset Date Resolution Status Scalp mass acute [facility] Work Phone: Evaluation note* Diagnosis S/P TKR (total knee replacement), right- Primary Acute pain of left knee History of left knee replacement [facility]* Diagnosis History of colon polyps- Primary [facility] Diagnosis History of colon polyps- Primary [facility] Diagnosis History of colon polyps documented in this [facility]* Diagnosis Inclusion cyst- Primary Sebaceous cyst documented in this encounter [facility]* Diagnosis Inclusion cyst Sebaceous cyst documented in this [facility]* Diagnosis Inclusion cyst- Primary Sebaceous cyst documented in this encounter [facility]* Diagnosis Memory loss- Primary Primary insomnia Persistent disorder of initiating or maintaining sleep 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 Depression, unspecified depression type (CMS/HCC) documented in this encounter [facility]* Diagnosis Primary progressive aphasia (CMS/HCC)- Primary Memory loss Other insomnia Bereavement Bereavement, uncomplicated 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) [facility]* Diagnosis Primary progressive aphasia (CMS/HCC)- Primary Memory loss Other insomnia Bereavement Bereavement, uncomplicated 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) Word finding difficulty Primary insomnia Persistent disorder of initiating or maintaining sleep Depression, unspecified depression type (CMS/HCC) [facility]* Diagnosis Other insomnia- Primary Other chronic pain Primary progressive aphasia (CMS/HCC) Bereavement Bereavement, uncomplicated Memory loss [facility]* Diagnosis Acute right hip pain- Primary History of total right hip replacement Right hip pain Pain in joint, pelvic region and thigh Acute pain of left shoulder Polyarthralgia Pain in joint, multiple sites [facility]* Diagnosis Polyarthralgia- Primary Pain in joint, multiple sites documented [facility] encounter [facility] HealthcareHistory general Narrative - Reported* Type Description Date Medical History CHRONIC KIDNEY DISEASE STAGE 3 Medical HistoryPOLYMYALGIA RHEUMATICAMedical HistoryRAISED ANTIBODY TITERMedical HistoryRAISED ESRMedical HistoryIMMUNOLOGICMedical HistoryCANCERMedical History HYPERTENSIONMedical HistoryBACK PAINMedical HistoryLEFT SIDED BREAST SURGERY Surgical HistoryHIP [id number] HistoryRIGHT KNEE ARTHROSCOPY Surgical HistoryMASTECTOMY LEFTSurgical HistoryHYSTERECTOMYSurgical History WISDOM TEETHSurgical HistoryLUMBAR FUSION F4Keuplefd HistoryLEFT KNEE REPLACEMENT3/2Surgical HistoryHIP [id number] HistorySEE ABOVE [facility] Other InstructionsNot on filedocumented in this encounter [facility] on filedocumented in this encounter [facility] SystemInstructionsNot on filedocumented in this encounter [facility] SystemInstructionsNot on filedocumented in this encounter [facility] SystemReason for referral (narrative)No reason for referral information availableTrihealth Mcc[facility] Work Phone: Summary Purpose Family History Unknown Family Member Name Dates Details Family history of hypertensi on: Father, Sister, Brother(V17.49, Z82.49) Status:ActiveFamily history of acute myocardial infarction: Sister(V17.3, Z82.49) Status:ActiveH/O heart artery stent: Sister(V45.82, Z95.5) Status:Active Unknown Family Member Name Dates Details Family history of hypertensi on: Father, Sister, Brother(V17.49, Z82.49) Status:ActiveFamily history of acute myocardial infarction: Sister(V17.3, Z82.49) Status:ActiveH/O heart artery stent: Sister(V45.82, Z95.5) Status:Active Relationship Condition Age at Onset Recorded Date/T greg brother Hypertension Unknown fatherHypertensionUnknownDeceasedUnknownNot SpecifiedDeceasedUnknownHypertension Unknownnatural sonDiabetes mellitusUnknownsisterDiabetes mellitusUnknownHistory of strokeUnknownMalignant neoplasmUnknown Relationship Condition Age at Onset Recorded Date/T greg brother Hypertension Unknown fatherHypertensionUnknownDeceasedUnknownmotherDeceasedUnknownHypertensionUnknown sonDiabetes mellitusUnknownsisterDiabetes mellitusUnknownHistory of stroke UnknownMalignant neoplasmUnknown Advance Directives Advance Directive Response Recorded Date/ Time Advance Directives No June 12 11:20am Advance Directive Response Recorded Date/ Time Advance Directives No June 12 10:20am Date ActivatedDate InactivatedComments06/24/2023 8:52 PM06/26/2023 3:54 PMCode StatusDate ActivatedDate InactivatedCommentsFull Code06/24/2023 8:52 PM06/26/2023 3:54 PMDate ActivatedDate InactivatedComments06/24/2023 8:52 PM06/26/2023 3:54 PM Chief Complaint and Reason for Visit Chief Complaint z01.818 Chief Complaint ckd stage 3 hematuri a Chief Complaint Unknown Chief Complaint lump behind left ear UnknownReason for VisitScalp mass Chief Complaint Admit Date 2-3 month follow up May 05, 2025 10:42 am Chief Complaint Admit Date Med f/u August 25, 2025 1 1:04am Chief Complaint overdue HTN* overdue HTN * [...] managed by rheumatology * Lei Perez MD, [facility] Additional Source Comments Source Comments (unrecognize d section and content) In the event this informatio n is protected by the Federal Confidentiality of Alcohol and Drug Abuse Patient Records regulations: The Federal rules restrict any use of the information to criminally investigate or prosecute any alcohol or drug abuse patient.[facility] HamiltonIn the event this information is protected by the Federal Confidentiality of Alcohol and Drug Abuse Patient Records regulations: The Federal rules restrict any use of the information to criminally investigate or prosecute any alcohol or drug abuse patient.[facility] HamiltonIn the event this information is protected by the Federal Confidentiality of Alcohol and Drug Abuse Patient Records regulations: The Federal rules restrict any use of the information to criminally investigate or prosecute any alcohol or drug abuse patient.[facility] INFORMATION SOURCE (unrecogn ized section and content) DATE CREATED AUTHOR 12/28/2021 [facility] Product Lead DATE CREATED AUTHOR AUTHOR'S ORGANIZ ATION 02/16/2022 [facility] DATE CREATED AUTHOR AUTHOR'S ORGANIZ ATION 08/04/2022 [facility] DATE CREATED AUTHOR AUTHOR'S ORGANIZ ATION 08/04/2022 [facility] DATE CREATED AUTHOR AUTHOR'S ORGANIZ ATION 02/24/2023 [facility] DATE CREATED AUTHOR AUTHOR'S ORGANIZ ATION 09/11/2024 [facility] DATE CREATED AUTHOR AUTHOR'S ORGANIZ ATION 09/18/2024 [facility] DATE CREATED AUTHOR AUTHOR'S ORGANIZ ATION 08/25/2025 [facility] EPIC Reason for Visit (unrecogniz ed section and content) ReasonCommentsLab OrdersReasonCommentsPainReasonCommentsColon Cancer Screening1 YEAR RECALL, COLONOSCOPY by DR RizoCommentsCystLump behind Left ear, referred by Dr. BartlettCommentsPost-opPost op excision of inclusion cyst on left posterior scalp performed 09/08/24 at [facility]HReasonCommentsMemory LossSpecialty Diagnoses / ProceduresReferred By ContactReferred To ContactNeurology Diagnoses Other amnesia Procedures [place] OFFICE/OUTPATIENT NEW LOW MDM 30 MINUTES Florinda Flowers MD [address] [place] [address] Phone: tel: fax: Dennis Henriquez, DO [address] [place] [address] Phone: tel: fax: Referral IDStatusReasonStart DateExpiration DateVisits RequestedVisits [id number] Consult and Treat /[id number] Loss Care Teams (unrecognized sec tion and content) Team MemberRelationshipSpecialtyStart DateEnd Date Florinda Flowers MD [address] [place] [phone] PCP - GeneralFamily Practice01/26/14 Team Status: Inactive Member Role Status Dates Florinda Flowers MD Primary Care Provider Active Taylor Barboza ProviderActive Team Status: Inactive Member Role Status Dates Florinda Flowers MD Primary Care Provider Active LUIS [facility] ProviderActive Team Status: Active Member Role Status Dates Florinda Flowers MD Primary Care Provider Active Team Status: Inactive Member Role Status Dates Florinda Flowers MD Primary Care Provider Active Taylor Cardoza ProviderActive Team Status: Inactive Member Role Status Dates Florinda Flowers MD Primary Care Provider Active Start: February 05, 2024 End: February 05, 2024Abi Myles ProviderActiveStart: February 05, 2024 End: February 05, 2024 Team Status: Inactive Member Role Status Dates Florinda Flowers MD Primary Care Provide r, Attending Provider Active Start: August 21, 2024 End: August 21, 2024 Team Status: Inactive Member Role Status Dates Florinda Flowers MD Primary Care Provider Active Start: September 08, 2024 End: September 08, 2024Abi Myles ProviderActiveStart: September 08, 2024 End: September 08, 2024Team MemberRelationshipSpecialtyStart DateEnd Date Florinda Flowers MD [address] [place], [place] [id number] PCP - General04/30/18Team MemberRelationshipSpecialtyStart DateEnd Date Florinda Flowers MD [address] [facility] [place] [address] PCP - GeneralFamily Medicine05/21/23Team MemberRelationshipSpecialtyStart DateEnd Date Florinda Flowers MD [address] [facility] [place] [address] PCP - GeneralFamily Medicine05/21/23Team MemberRelationshipSpecialtyStart DateEnd Date Florinda Flowers MD [address] [place] [address] PCP - General04/30/18Team MemberRelationshipSpecialtyStart DateEnd Date Florinda Flowers MD [address] [place] [address] PCP - General04/30/18Team MemberRelationshipSpecialtyStart DateEnd Date Florinda Flowers MD [address] [place] [address] PCP - General04/30/18Team MemberRelationshipSpecialtyStart DateEnd Date Florinda Flowers MD [address] [place] [address] PCP - General04/30/18Team MemberRelationshipSpecialtyStart DateEnd Date Florinda Flowers MD [address] [place] [address] PCP - General6/27/18Team MemberRelationshipSpecialtyStart DateEnd Date Florinda Flowers MD [address] [place] [address] PCP - General04/30/18Team MemberRelationshipSpecialtyStart DateEnd Date Florinda Flowers MD [address] [facility] [phone] PCP - Generalmily Medicine05/21/23 Mc Parry DO [address] [place] [address] Referring PhysicianNeurology01/14/25Team MemberRelationshipSpecialtyStart DateEnd Date Florinda Flowers MD [address] [place] [address] [facility] - [facility]05/21/23 Mc Parry DO [address] [place] [address] Referring PhysicianNeurology01/14/25Team MemberRelationshipSpecialtyStart DateEnd Date Florinda Flowers MD [address] [facility] [address] PCP - Generalmily [facility]05/21/23 Mc Parry DO [address] [place] [address] Referring PhysicianNeurology01/14/25Team MemberRelationshipSpecialtyStart DateEnd Date Florinda Flowers MD [address] [place] [address] PCP - GeneralFamily Medicine05/21/23 Mc Parry DO [address] [place] [address] Referring PhysicianNeurology01/14/25Team MemberRelationshipSpecialtyStart DateEnd Date Florinda Flowers MD [address] [place] [address] PCP - Generalmi Medicine05/21/23 Mc Parry DO [address] [place] [address] Referring PhysicianNeurology01/14/25Team MemberRelationshipSpecialtyStart DateEnd Date Florinda Flowers MD [address] [place] [address] P[facility] - [facility]05/21/23 Mc Parry DO [address] [place] [address] Referring PhysicianNeurology01/14/25 Team Status: Inactive Member Role Status Dates Florinda Flowers MD Primary Care Provider Active Start: May 05, 2025 End: May 05ngSilvestre Mckeon ProviderActiveStart: May 05, 2025 End: May 05, 2025Team MemberRelationshipSpecialtyStart DateEnd Date Florinda Flowers MD [address] [place] [address] PCP - GeneralFami Medicine05/21/23 Mc Parry DO [address] [place] [address] Referring PhysicianNeurology01/14/25Team MemberRelationshipSpecialtyStart DateEnd Date Florinda Flowers MD [address] [place] [phone] PCP - [facility]05/21/23 Mc Parry DO [address] [place] [address] Referring PhysicianNeurology01/14/25Team MemberRelationshipSpecialtyStart DateEnd Date Florinda Flowers MD [address] [place] [address] PCP - [facility]05/21/23 Mc Parry DO [address] [place] [address] Referring PhysicianNeurology01/14/25 Team Status: Active Member Role/Relationship Status Dates Florinda Flowers MD Primary Care Provider Active Team Status: Active Member Role/Relationship Status Dates Florinda Flowers MD Primary Care Provider Active Start: August 20, 2025 Taylor Muir ProviderActiveStart: August 20, 2025 Team Status: Inactive Member Role/Relationship Status Dates Florinda Flowers MD Primary Care Provider Active Start: August 25, 2025 End: August 25, 2025Taylor Muir ProviderActiveStart: August 25, 2025 End: August 25, 2025Team MemberRelationshipSpecialtyStart DateEnd Date Florinda Flowers MD [address] [place] [address] PCP - GeneralFamily Medicine05/21/23 BrindaMc [address] [place] [address] Referring PhysicianNeurology01/14/25 Goals (unrecognized section and content) Goals may [...] BE BASED ON THE PRIMARY CLINICAL RECORDS. [facility]. provides no warranty or guarantee of the accuracy or completeness of information in this document.
[2025-08-27 13:26] LABS: Alanine Aminotransferase 21 U/L (14-59); Albumin Globulin Ratio 1.0; Albumin Level 3.8 g/dL (3.4-5.0); Alkaline Phosphatase 81 U/L (46-116); Anion Gap 15.1; Aspartate Amino Transferase 24 U/L (15-37); Blood Urea Nitrogen 20.0 mg/dL (7.0-18.0); Calcium 9.0 mg/dL (8.5-10.1); Carbon Dioxide 24.2 mmol/L (21.0-32.0); Chloride 102 mmol/L (98-107); Cholesterol 267 mg/dL (<=200); Estimated GFR (African America >60 (>=60 mL/min/1.73m^2); Estimated GFR (Non-African Ame 55 (>=60 mL/min/1.73m^2); Globulin 3.8 g/dL; Glucose 114 mg/dL (74-106); HDL Cholesterol 76 mg/dL (40-60); Potassium 4.3 mmol/L (3.5-5.1); Sodium 137 mmol/L (136-145); Total Protein 7.6 g/dL (6.4-8.2); Triglycerides 137 mg/dL (<=150); VLDL CHOLESTEROL 27.4 mg/dL
== END 2025-08-27 11:05 | disposition home or self-care (01) ==
LOC: LAB 11:05
PROVIDERS: PCP Family Medicine; Visit Provider Family Medicine
DX: E78.5 Hyperlipidemia, unspecified (principal); I10 Essential (primary) hypertension
CPT/HCPCS: 36415; 80053; 80061; 82043; 82570; 83036

== ENCOUNTER 2025-08-27 11:10 | Outpatient (OUT) | payer MEDICARE, SELFPAY ==
--- OUTSIDE RECORDS SUMMARY | 2025-08-27 11:17 | XMS_ITS | CCD ---
Author Organization [facility] Care Team Providers Care Facility Engineer Name Role Phone Florinda Flowers Primary Care Provider [phone] MD Florinda Flowers Primary Care Provider ROSA Milton Attending Provider MD Ascencion Ortiz Attending Provider [phone] Teetee Rizvi Unavailable MD Florinda Flowers Primary Care Provider MD Teetee Rizvi Attending Provider [phone] Florinda Flowers Unavailable Unavailable Unavailable Dr. Florinda [...] Unavailable Florinda Flowers MD Primary Care Provider [phone] Florinda Flowers MD Primary Care Provider Uzma [...] Unavailable Florinda Flowers MD Primary Care Provider [phone] Florinda Flowers MD Attending Provider Allergies Allergy ClassificationReported Allergen(s)Allergy TypeDate of OnsetReaction(s) Facility (20 sources)Acetaminophen / oxyCODONE; Translations: [Percocet TABS]Drug Allergy 18-48-4398KB Upset, GI Disturbance, [facility]Mer[facility] (14 sources)Sulfa Dyne; Translations: [SULFA DYNE]Drug Gjnpxjh98-17-9468Vpjt [facility] (20 sources)fentaNYL; Translations: [FENTANYL]Drug Msuojmh56-96-9501Hftyzea, Other (See Comments)[facility] HospitalComment on above:Onset Date: 09/20/2017 (20 sources)terbinafine; Translations: [TERBINAFINE]Drug Xgiafvm91-29-0078Vviq [facility] ClinicComment on above:Onset Date: 07/29/2017 (8 sources)Penicillins; Translations: [PENICILLINS]Drug Deypvfi82-97-9467Dlmu [facility] (4 sources)Penicillin VDrug AllergyProvidence [facility] Medical Center Zoom Other (1 source)sulfaSALAzineDrug AllergyUnkOsteopathic Hospital of [facility] Zoom Other (12 sources)terbinafine; Translations: [Lamisil]Drug Paewvlw32-58-3288CvivtwdSwpAdams County Hospital (7 sources)oxyCODONE; Translations: [oxycodone]Drug Doulxol37-61-5613LmgighifSelect Medical [facility] (7 sources)Sulfonamides (Antibiotic); Translations: [Sulfa (Sulfonamide Antibiotics)]Allergy to ymzvzgfiv02-83-8423QrvaDgwwsrzkdSelect [facility] (2 sources)Penicillins; Translations: [Penicillins]Allergy to drug (finding)[facility] 600 DO Work Phone: (2 sources)Sulfur; Translations: [Sulfur]Drug AllergyMeeker [facility] Hospital 600 DO Work Phone: (2 sources)Lamisil CREA; Translations: [Lamisil CREA]Allergy to drug (finding) [place] [address] DO Work Phone: (3 sources)SulfonamideDrug allergyProvidence VA Medical Center Zoom Other (8 sources)Penicillin; Translations: [penicillin]Drug AllergyPark[facility] (20 sources)Substance with sulfonamide structure and antibacterial mechanism of action (substance)Drug wmhwors95-00-0566RedhNhaaz [place] Zoom Other (1 source)Acetaminophen / oxyCODONEDrug Qsjqnpl60-25-9494MapHarrison Community Hospital Rep[facility] (1 source)Sulfonamides (Antibiotic)Drug allergy (disorder)99-85-6356DhkHarrison Community Hospital Repository (1 source)terbinafineDrug Hnjhwjk90-84-2409DshwsbuLpkzo [place] Zoom Other (6 sources)Acetaminophen; Translations: [acetaminophen]Drug Kkimuix84-51-0152 [facility] (6 sources)Starch; Translations: [starch]Drug Tzltbiv70-45-2963FchqwItzaelqrcSouthwest General Health CenterComment on above:Onset Date: 07/29/2017 (6 sources)Talc; Translations: [talc]Drug Efavzfy01-41-1956DulpyXktfanodjSouthwest General Health CenterComment on above:Onset Date: 07/29/2017 (1 source)fentaNYLDrug Yfmqwlh60-29-6762KmpxiesxeSelect [facility] Rep[facility] (1 source)PenicillinsDrug allergy (disorder)90-72-5928BadmxmlalSelect Medical Specialty [facility] Repository (1 source)terbinafineDrug Lvcprqf84-33-1754WqrhonvyaSelect Medical Specialty [facility] Repository (9 sources)PenicillinsPropensity to adverse reactions to uqkq97-33-3414JdzxManhattan Psychiatric Center System (18 sources)PenicillinsDrug Hrltkvb27-03-7080TothYTQN Healthcare Medications Current Medications MedicationDrug Class(es)DatesSig (Normalized)Sig (Original)8 hr acetaminophen 650 mg extended release oral tablet (15 sources)Start: 84-39-7458qwby 2 tablets by mouth every eight hours as needed take 2 tablets by mouth every eight hourstake 2 tablets by mouth every eight hours as neededAcetaminophen ER 650 MG 2 tablets as needed Orally every 8 hrs ActiveamLODIPine 5 mg oral tablet (20 sources)Dihydropyridine Calcium Channel BlockerStart: 11-30-2024 End: 59-17-3093qjoe 1 tablet by mouth once dailyAmlodipine 5 mg tablet Active 0 .ROUTE .COMPLEX 90 August 25, 2025 11:47am Take 1 tablet by mouth once daily Complies with drug therapyStart: 02-18-2018 End: 91-58-1696htcr 1 tablet by mouth once dailyAmlodipine 5 mg Tablet Discontinued 5 MG PO Daily July 04, 2022 12:00am May 06, 2024 12:19pm Comment on above:Take 5 mg by mouth.aspirin 81 mg delayed release oral tablet (18 sources)Platelet Aggregation Inhibitor, Nonsteroidal Anti-inflammatory Drug aspirin (Aspirin EC Low Strength) 81 MG EC tablet 1 capsule 1 (one) time each day at the same time Auhfcw12 hr buPROPion hydrochloride 150 mg extended release oral tablet (12 sources)AminoketoneStart: 10-05-2024 End: 96-77-6562pdmm 1 tablet by mouth every twenty-four hours in the morning Bupropion Hcl 150 mg tablet extended release 24 hr Active 0 .ROUTE .COMPLEX 90 March 03, 2025 11:52am TAKE 1 TABLET BY MOUTH IN THE MORNING Complies with drug therapyStart: 03-18-2024 End: 25-69-4041fqtw 1 tablet by mouth once daily in the morningBupropion Hcl (Wellbutrin Xl) 150 mg tablet extended release 24 hr Discontinued 150 MG PO Every morning 90 April 08, 2024 12:00pm October 05, 2024 9:45am cholecalciferol 0.05 mg oral capsule (5 sources)Vitamin DStart: 46-25-7457cbem 1 capsule by mouth once dailytake 1 [...] 10 mg oral tablet (7 sources)Muscle RelaxantStart: 50-42-7892jpnizfwrfwjzckg (Flexeril) 10 MG tablet Indications: Other insomnia , Other chronic pain Take 1/2-1at bedtime 30 tablet 2 02/16/2025 Activedoxepin hydrochloride 10 mg oral capsule (14 sources)Tricyclic AntidepressantStart: 36-75-0385hdnl 1 capsule by mouth once at bedtimedoxepin (SINEquan) 10 MG capsule Indications: Primary insomnia 1- 2 po q hs 60 capsule 2 01/14/2025 Activedoxycycline hyclate 100 mg oral tablet (4 sources)Tetracycline-class DrugStart: 08-93-6788jajv 1 tablet by mouth twice dailyDoxycycline Hyclate 100 mg tablet Active 100 MG PO Twice daily 14 August 21, 2024 12:00am Complies with drug therapyezetimibe 10 mg / simvastatin 40 mg oral tablet (12 sources)HMG-CoA Reductase Inhibitor, Dietary Cholesterol Absorption InhibitorStart: 80-54-0879evbv 1 tablet by mouth once dailyezetimibe-simvastatin (VYTORIN) 10-40 mg per tablet Take 1 tablet by mouth nightly. 08/23/2006 Active Comment on above:Take one(1) tablet daily.fluconazole 100 mg oral tablet (7 sources)Azole AntifungalStart: 05-29-9145oobj 1 tablet by mouth every twenty- four hourslidocaine 0.05 mg/mg medicated patch (9 sources)Antiarrhythmic, Amide Local AnestheticStart: 80-55-9047ywgoo 1 dose transdermal route once daily as needed for painlidocaine (LIDODERM) 5 % Place 1 patch on the skin daily as needed for pain (pain) for up to 15 doses. Remove & Discard patch within 12 hours or as directed by MD Bhatia patch 07/21/2023 Cvnwbx40 hr metoprolol succinate 50 mg extended release oral tablet (20 sources)beta-Adrenergic BlockerStart: 51-68-0024dewf 1 tablet by mouth once dailyMetoprolol Succinate 50 mg tablet extended release 24 hr Active 50 MG PO Daily 90 0 August 25, 2025 12:00am Complies with drug therapyStart: 02-18-2018 End: 67-72-8813ydub 1 tablet by mouth twice dailyMetoprolol Tartrate 25 mg Tablet Discontinued 25 MG PO Twice daily July 04, 2022 12:00am January 16, 2024 4:02pmStart: 27-17-9168LZYBEIQKII TARTRATE, SHORT ACTING, 50 mg tablet metoprolol tartrate (Lopressor) 25 MG tablet every 12 (twelve) hours Active multivitamin (THERAGRAN) tablet (9 sources)Start: 80-89-9722nxhc 1 tablet by mouth in the morningmultivitamin (THERAGRAN) tablet Take 1 tablet by mouth in the morning. 10/09/2005 Active Start: 95-24-0365oxtq 1 tablet by mouth in the morningmultivitamin (THERAGRAN) tablet Take 1 tablet by mouth in the morning. 0 10/09/2005 Activeondansetron 4 mg oral tablet (4 sources)Serotonin-3 Receptor Antagonisttake 1 tablet by mouth three times daily as needed for nauseaZofran 4 MG 1 tablet Orally 3 times a day prn nausea ActivepredniSONE 20 mg oral tablet (20 sources)Start: 08-20-2025 End: 12-75-2919ihng 2 tablets by mouth once daily, then take 1 tablet by mouth once daily at mealtimepredniSONE (Deltasone) 20 MG tablet Indications: Acute right hip pain , Acute pain of left shoulder, Polyarthralgia Take 2 tablets (40 mg) by mouth Daily for 5 days, THEN 1 tablet (20 mg) Daily for 5 days. Take with food. 15 tablet 08/20/2025 08/30/2025 ActiveStart: 09-15-2024 End: 54-15-6825fptl 1 tablet by mouth once dailyPrednisone 5 mg tablet Active 0 .ROUTE .COMPLEX 90 0 July 07, 2025 1:44pm Take 1 tablet by mouth once daily Complies with drug therapyStart: 91-63-4542olyt 1 tablet by mouth every twelve hourspredniSONE 20 MG 1 tablet Orally 2 times a day for 5 day(s) Sep, ActiveStart: 07-04-2022 End: 17-53-4753uhnu 1 tablet by mouth once dailyPrednisone 5 mg tablet Discontinued 5 MG PO Daily 30 0 March 12, 2024 12:00am April 10, 2024 9:08am Start: 94-57-7746bkqk 2 tablets by mouth once dailypredniSONE 5 MG Oral Tablet TAKE 2 TABLETS BY MOUTH ONCE DAILY OR DIRECTED Quantity: 60 Refills:0 Ordered: 06-Jun-2022 DO Start : 01-Feb-2022 Activerosuvastatin calcium 40 mg oral tablet (20 sources)HMG-CoA Reductase InhibitorStart: 11-17-2024 End: 77-31-8941ybww 1 tablet by mouth once dailyRosuvastatin 40 mg tablet Active 0 .ROUTE .COMPLEX 90 February 22, 2025 8:26am Take 1 tablet by mouth once daily Complies with drug therapyStart: 02-15-2018 End: 83-91-6785yago 1 tablet by mouth once dailyRosuvastatin 40 mg Tablet Discontinued 40 MG PO Daily July 04, 2022 12:00am November 17, 2024 3:34pm sod sulf-pot chloride-mag sulf 1.479-0.188- 0.225 gram tablet (10 sources)Start: 31-20-2266wwe sulf-pot chloride-mag sulf 1.479-0.188- 0.225 gram tablet Indications: History of colon polyps Please see instructional sheet given by physicians office. 24 tablet 01/29/2024 ActiveStart: 63-33-4230efp sulf-pot chloride-mag sulf 1.479-0.188- 0.225 gram tablet Indications: History of colon polyps Please see instructional sheet given by physicians office. 24 tablet 0 01/29/2024 ActiveStart: 01-03-2024 End: 73-02-0275fet sulf-pot chloride-mag sulf 1.479-0.188- 0.225 gram tablet Indications: History of colon polyps Please see instructional sheet given by physicians office. 24 tablet 0 01/03/2024 01/29/2024 Discontinued (Duplicate order)Start: 39-30-7783ylg sulf-pot chloride-mag sulf 1.479-0.188- 0.225 gram tablet Indications: History of colon polyps Please see instructional sheet given by physicians office. 24 tablet 0 01/03/2024 ActivetraMADol hydrochloride 50 mg oral tablet (9 sources)Opioid AgonistStart: 08-20-2025 End: 32-78-4943kjmt 1 tablet by mouth every eight hours for paintraMADol (Ultram) 50 MG tablet Indications: Acute right hip pain , Acute pain of left shoulder , Polyarthralgia Take 1 tablet (50 mg) by mouth every 8 (eight) hours if needed for severe pain for up to 4 days 12 tablet 08/20/2025 08/24/2025 ActiveStart: 05-11-2023 End: 99-26-5919hyuv 1 tablet by mouth twice daily as [...] mg oral tablet (20 sources)BisphosphonateStart: 07-20-2024 End: 55-02-7992emub 1 tablet by mouth every weekAlendronate 70 mg tablet Discontinued 0 .ROUTE .COMPLEX 12 0 September 15, 2024 11:42am September 21, 2024 9:31am TAKE 1 TABLET BY MOUTH ONCE WEEKLY 30 MINUTES BEFORE THE FIRST FOOD, BEVERAGE OR MEDICINE OF THE DAY WITH PLAIN WATERStart: 02-16-2022 End: 16-14-1191hktk 1 tablet by mouth every weekAlendronate 70 mg Tablet Discontinued 70 MG PO every week July 04, 2022 12:00am July 10:20am on Saturdaystart: 78-35-7539DPRZHEWMGVJ 70 mg tabletalendronate (FOSAMAX) 70 mg tablet Take 1 tablet (70 mg total) by mouth every 7 days. Active ergocalciferol 2000 unt oral tablet (3 sources)Provitamin D2 CompoundStart: 86-06-8519urle 1 tablet by mouth once dailyergocalciferol, vitamin D2, 2,000 unit Tab Indications: Personal history of malignant neoplasm of breast , Creatinine elevation Take 1 tablet by mouth once daily. 30 tablet 3 06/09/2013 ActiveComment on above:Take 1 tablet by mouth once daily.hydrALAZINE hydrochloride 50 mg oral tablet (20 sources)Arteriolar VasodilatorStart: 02-17-2024 End: 70-95-7183twbv 1 tablet by mouth once daily at mealtimeHydralazine 50 mg tablet Discontinued 0 .ROUTE .COMPLEX 90 0 February 17, 2024 1:02pm March 12, 2024 11:49am Take 1 tablet by mouth once daily with foodStart: 02-15-2018 End: 94-28-7283yjon 1 tablet by mouth once daily at [...] 160-12.5 mg per tabletMULTIVITAMIN TAB (4 sources)Start: 60-19-8638UFGSXNINCWKH TAB Take one(1) tablet daily. 0 10/09/2005 ActiveComment on above:Take one(1) tablet daily.sertraline 50 mg oral tablet (4 sources)Serotonin Reuptake InhibitorStart: 03-12-2024 End: 69-18-9589jhcu 1 tablet by mouth once dailySertraline 50 mg tablet Discontinued 50 MG PO Daily 30 0 March 12, 2024 12:00am March 18, 2024 10:31am tiZANidine 4 mg oral tablet (4 sources)Central alpha-2 Adrenergic AgonistStart: 04-30-2024 End: 07-12-5002dgoc 1 tablet by mouth once daily at bedtime as neededTizanidine 4 mg tablet Discontinued 4 MG PO Daily at bedtime as needed for muscle spasticity 14 0 April 30, 2024 12:00am August 25, 2025 11:50amzolpidem tartrate 10 mg oral tablet (20 sources)gamma-Aminobutyric Acid-ergic AgonistStart: 07-18-2012 End: 57-37-3904apjz 1 tablet by mouth once daily at bedtime as neededZolpidem 10 mg Tablet Discontinued 10 MG PO Daily at bedtime as needed for Insomnia July 04, 2022 12:00am January 16, 2024 4:02pmComment on above:Take 10 mg by mouth once daily. Problems Active Problems Problem ClassificationProblemDateDocumented DateEpisodic/Chronic Administrative/social admission (7 sources)Bereavement; Translations: [Disappearance and of family member] 57-49-9573CgsvynjfXishxia disorders (4 sources)Anxiety disorder; Translations: [Anxiety disorder, unspecified]Onset: 24-00-7445MwzwdeyHmezdr of breast (20 sources)Malignant neoplasm of upper-outer quadrant of female breast; Translations: [Malignant neoplasm of upper-outer quadrant of left female breast] Onset: 507773-38-9865WiiicciHnsrxdb dysrhythmias (2 sources)Sinus bradycardia; Translations: [Other specified cardiac dysrhythmias]EpisodicChronic kidney disease (20 sources)Chronic kidney disease stage 3A ; Translations: [Chronic kidney disease, stage 3a]ChronicDelirium, dementia, and amnestic and other cognitive disorders (7 sources)Progressive aphasia; 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]21-96-1028Bjttedo Disorders of lipid metabolism (16 sources)Hyperlipidemia; Translations: [Other and unspecified hyperlipidemia] Onset: 38-53-9789XvnrlgyPkrslrjzsd disorders (1 source)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; Translations: [BARRETTS ESOPHAGUS W/O DYSPLASIA]Onset: 86-24-9163TporlfsCvattthty hypertension (20 sources)Essential hypertension; Translations: [Essential (primary) hypertension]Onset: 06-12-2022 Resolved: 91-16-4447TxurlvkNuqpvezxqfoex symptoms and ill-defined conditions (4 sources)Hematuria, unspecified; Translations: [Proteinuria, unspecified] Onset: 06-12-2022 Resolved: 86-47-6925PgfkqphxBcqzhdvilekyn and screening for infectious disease (20 sources)Other specified abnormal immunological findings in serum; Translations: [Contact with and (suspected) exposure to other viral communicable diseases]Onset: 06-12-2022 Resolved: 24-59-2748JlirxqumPwjqgpvlxkcv diseases of female pelvic organs (4 sources)Acute vaginitis; Translations: [Acute vaginitis]EpisodicInfluenza (5 sources)Influenza due to other identified influenza virus with other respiratory manifestations; Translations: [Influenza due to Influenza A virus with upper respiratory signs]EpisodicJoint disorders and dislocations; trauma-related (18 sources)Derangement of left knee; Translations: [Unspecified internal derangement of left knee]Onset: 297504-65-1134PssoldcYoqzyyutoioiw mental health disorders (14 sources)Primary insomnia; Translations: [Primary insomnia]ChronicMood disorders (12 sources)Depressive disorder; Translations: [Depression]65-76-6908Dbwdfsz Osteoarthritis (20 sources)Unspecified osteoarthritis, unspecified site; Translations: [Osteoarthritis]Onset: 846389-56-2904LvenkexRcjgkkrezzdh (6 sources)Primary osteoporosis; Translations: [Age-related osteoporosis without current pathological fracture]24-04-1216GxvtohdFyyzi aftercare (2 sources)FDC (current) use of non-steroidal anti-inflammatories (NSAID) Onset: 06-12-2022 Resolved: 02-76-3948AkthjiwzNqmpw aftercare (1 source)Other medical terminologist (current) drug therapy; Translations: [OTH BOAT MASTER CURRENT DRUG THERAPY]Onset: 61-02-1244ZicgwaxwRswvg circulatory disease (4 sources)Elevated blood-pressure reading without diagnosis of hypertension; Translations: [Elevated blood-pressure reading, without diagnosis of hypertension]EpisodicOther connective tissue disease (1 source)History of repair of hip joint; Translations: [Presence of unspecified artificial hip joint]45-58-8557CaqzanjTtpgl connective tissue disease (5 sources)Polymyalgia rheumatica; Translations: [POLYMYALGIA RHEUMATICA]Onset: 56-51-9564LatdxarPocrz connective tissue disease (1 source)Presence of left artificial knee joint; Translations: [PRESENCE LEFT ARTIFICIAL KNEE JOINT]Onset: 72-72-0627AdhksgpFufgh connective tissue disease (4 sources)Polymyalgia rheumatica; Translations: [Polymyalgia rheumatica]Chronic Other connective tissue disease (18 sources)Artificial knee joint present; Translations: [Presence of unspecified artificial knee joint]Onset: 015023-69-0137TlvpvwiZyijl connective tissue disease (20 sources)History of total knee arthroplasty; Translations: [Presence of left artificial knee joint]Onset: 585727-34-7935JzdroanGefid connective tissue disease (2 sources)History of total replacement of right hip joint; Translations: [Presence of right artificial hip joint]36-66-1429JjbejlkLooap connective tissue disease (4 sources)Neuralgia; Translations: [Neuralgia and neuritis, unspecified] EpisodicOther endocrine disorders (4 sources)Hypoglycemia; Translations: [Hypoglycemia, unspecified]Onset: 92-90-7361XrfmnhnEjddv gastrointestinal disorders (4 sources)Abnormal feces; Translations: [Other fecal abnormalities]Episodic Other injuries and conditions due to external causes (4 sources)History of fall; Translations: [History of falling]EpisodicOther lower respiratory disease (4 sources)Cough; Translations: [Cough, unspecified]EpisodicOther nervous system disorders (2 sources)Chronic pain; Translations: [Other chronic pain]30-67-2386Rqoiqmy Other nervous system disorders (4 sources)Skin sensation disturbance; Translations: [Other disturbances of skin sensation]EpisodicOther nervous system disorders (2 sources)Pseudodementia; Translations: [Other symptoms and signs involving cognitive functions and awareness]98-40-6805HmvhocipFwhsa nervous system disorders (3 sources)Word finding difficulty ; Translations: [Other speech disturbances] 83-26-7437RcglsahyPiygi non-traumatic joint disorders (4 sources)Joint pain; Translations: [Pain in unspecified joint]03-19-2024 EpisodicOther non-traumatic joint disorders (2 sources)Pain in left knee; Translations: [Pain in joint, lower leg]11-25-2024 EpisodicOther non-traumatic joint disorders (4 sources)Hip pain; Translations: [Pain in right hip]56-26-2554SsikwraqJabbk non-traumatic joint disorders (2 sources)Pain in left shoulder; Translations: [Pain in joint, shoulder region] 81-24-5463QpbevdloCmmdc non-traumatic joint disorders (4 sources)Multiple joint pain; Translations: [Pain in unspecified joint] 51-00-3822WiapqagpOrxrt nutritional; endocrine; and metabolic disorders (4 sources)Obesity; [...] neoplasm of breast; Translations: [Patient encounter status]Onset: 42-11-1223VabbelloTeigp skin disorders (4 sources)Mass of scalp; Translations: [Localized swelling, mass and lump, head]30-78-9123XvwcklkgSejaa skin disorders (2 sources)Localized swelling, mass and lump, head; Translations: [Localized superficial swelling, mass, or lump]95-46-7308IeauvmjlKmuzh skin disorders (1 source)Epidermal cyst; Translations: [Epidermal cyst]Onset: 09-02-2024 EpisodicOther upper respiratory infections (4 sources)Chronic sinusitis; Translations: [Chronic sinusitis, unspecified] ChronicRegional enteritis and ulcerative colitis (9 sources)Pseudopolyposis of colon; Translations: [Inflammatory polyps of colon without complications]Onset: 494222-30-6998VtrpeayEqylpjri codes; unclassified (6 sources)Insomnia; Translations: [Other insomnia]16-57-1323YndzyclHlgvpwhi codes; unclassified (11 sources)Insomnia; Translations: [Insomnia, unspecified]Onset: 03-08-2014 02-04-5552LlzzdvxyVwmxtifw codes; unclassified (4 sources)Memory impairment; Translations: [Other amnesia]24-18-6864Rhxxxkqj Residual codes; unclassified (12 sources)Amnesia; Translations: [Other amnesia]64-81-6264QccmdonlQzeuaviy codes; unclassified (2 sources)Chronic qwfc12-12-1575CghqerxhKbhxbdxrrps; intervertebral disc disorders; other back problems (8 sources)Disorder of sacrococcygeal spine; Translations: [Sacrococcygeal disorders, not elsewhere classified]Onset: 586180-43-2212Gnakbdpl Unclassified (3 sources)History of repair of hip joint; Translations: [Hip joint replacement by other means]78-21-6899Bncrhaqavmdc (1 source)CONTACT W/AND (SUSP) EXPOS COVID-19; Translations: [CONTACT W/AND (SUSP) EXPOS COVID-19]Onset: 32-21-5133Sebijtapodfq (1 source)Post-opOnset: 58-24-6182Yfpapyrddhfy (1 source)CystOnset: 10-34-5380Exnhmhjputdp (1 source)Colon Cancer ScreeningOnset: 01-03-2024 Past or Other Problems Problem ClassificationProblemDateDocumented DateEpisodic/ChronicAllergic reactions (4 sources)Urticaria, unspecified; Translations: [Urticaria]Onset: 03-08-2014 EpisodicCancer of breast (20 sources)History of malignant neoplasm of breast; Translations: [Personal history of malignant neoplasm of breast]Onset: 700469-15-4224Sfycnuwo Chronic kidney disease (3 sources)Chronic kidney diseaseOnset: 06-12-2022 Resolved: 25-19-9685Vrjidcwa of mouth; excluding dental (4 sources)Disorder of salivary gland; Translations: [Other diseases of salivary glands]Onset: 47-63-1587GkiywdzvVrbjalc (9 sources)Candidiasis of skin and nail; Translations: [Tinea cruris]Onset: 95-98-5729BjmvportZccp wounds of head; neck; and trunk (20 sources)Open wound of anterior abdominal wall with complication; Translations: [Unspecified open wound of abdominal wall, unspecified quadrant without penetration into peritoneal cavity, initial encounter]Onset: 10-01-2005 79-59-1044AqnlsivyKcrlj and unspecified benign neoplasm (5 sources)Personal history of colonic polyps; Translations: [PERSONAL HISTORY OF COLONIC POLYPS]Onset: 83-72-1165RtamfjlzXawnl and unspecified benign neoplasm (1 source)Benign neoplasm of sigmoid colon; Translations: [BENIGN NEOPLASM OF SIGMOID COLON]Onset: 56-83-1228MsujyomgPrljx and unspecified benign neoplasm (3 sources)History of polyp of colon; Translations: [Personal history of colonic polyps]10-04-8209RbkgeljuMlmkt bone disease and musculoskeletal deformities (4 sources)Bone density finding; Translations: [Other specified disorders of bone density and structure, unspecified site]Onset: 64-45-6750DmczxamsJcdnj non- traumatic joint disorders (9 sources)Pain in right knee; Translations: [Pain in joint, lower leg]Onset: 313741-16-8369SydvqhifKsmds skin disorders (4 sources)Epidermoid cyst; Translations: [Epidermal cyst]48-55-6300Zqqxuthi Residual codes; unclassified (1 source)Acquired absence of left breast and nipple; Translations: [ACQUIRED ABSENCE LT BREAST AND NIPPLE]Onset: 40-96-1324WpshivkhRlbsavdv codes; unclassified (1 source)Family history of malignant neoplasm of breast; Translations: [FAMILY HX MALIG NEOPLASM OF BREAST]Onset: 05-63-3037WxrwigbjNzvjiuei codes; unclassified (1 source)Family history of malignant neoplasm of ovary; Translations: [FAM HX MALIGNANT NEOPLASM OVARY]Onset: 59-19-8981HebcfjunFiwqfelg codes; unclassified (1 source)Family history of malignant neoplasm of other genital organs; Translations: [FAM HX MALIG NEOPLSM OT GENIT ORGN]Onset: 56-99-3776Milfytqm Residual codes; unclassified (4 sources)Postmenopausal state; Translations: [Asymptomatic menopausal state] Onset: 25-01-3690LycyapcoHtzdahgu codes; unclassified (4 sources)Family history of breast cancer; Translations: [Family history of malignant neoplasm of breast]Onset: 62-75-3321HbaepkxpDmmwdcmyk and history of mental health and substance abuse codes (3 sources)Ex-smoker; Translations: [Personal history of tobacco use]Onset: 72-02-8208Gliomjui Results Test NameValueInterpretationReference RangeFacilityALL CBC WITH AUTO DIFFon 32-74-6421BCRAFGFYL ABSOLUTE AUTO0.0NOWY HealthcareBasophils/100 WBC (Bld)0.5 % 0.2 - 2.0 %NOMSaint John'S Health SystemEosinophils/100 WBC (Bld)1.3 %0.9 - 7.0 %[facility] HospitalErythrocyte distribution width (RBC) [Ratio]14.0 %11.0 - 15.0 %NOMSaint John'S Health SystemHematocrit (Bld) [Volume fraction]41.1 %36.0 - 48.0 %[facility] Hemoglobin (Bld) [Mass/Vol]13.4 g/dL12.0 - 16.0 g/dLRipley County Memorial HospitalIMMATURE GRANULOCYTES ABS AUTO0.02NOSaint Mary's Hospital of Blue SpringsImmature granulocytes/100 WBC (Bld)0.2 % 0.0 - 0.5 %[facility] HospitalInterpretation and review of laboratory results AbnormalNOSaint Mary's Hospital of Blue SpringsLYMPHOCYTES ABSOLUTE AUTO1.4NOSaint Mary's Hospital of [facility] Springs Lymphocytes/100 WBC (Bld)16.4 %Low20.5 - 60.0 %[facility]Po[facility] HospitalH (RBC) [Entitic mass]30.1 pg26.7 - 34.0 pgCenterPointe HospitalHC (RBC) [Mass/Vol]32.6 g/dL29.9 - 35.2 g/dLCenterPointe HospitalV (RBC) [Entitic vol]92.4 fL81.0 - 99.0 fLRipley County Memorial HospitalMONOCYTES ABSOLUTE AUTO0.7NOSaint Mary's Hospital of Blue SpringsMonocytes/100 WBC (Bld)8.4 % 1.7 - 12.0 %[facility] HospitalNEUTROPHILS ABSOLUTE AUTO6.1NOMS [facility] Neutrophils/100 WBC (Bld)73.2 %43.0 - 75.0 %[facility] HospitalPlatelet mean volume (Bld) [Entitic vol]10.2 fL9.5 - 13.5 fLRipley County Memorial HospitalTBH EO #0.1NOMS Healthcare TBH [id number] [facility] RBC4.45NOMS [facility] HospitalTB WBC8.3NOSaint Mary's Hospital of [facility] Springs CLINISYNCNOWY HealthcareBasophils Auto (Bld) [#/Vol]Ordered By: Florinda Flowers on 63-97-9079Zueuedmio (Bld) [#/Vol]0.0 10 3/uL0.0-0.1FUniversity Hospitals Lake West Medical CenterBasophils/100 WBC Auto (Bld)Ordered By: Florinda Flowers on 08-20-2025 Basophils/100 WBC (Bld)0.5 %0.2-2.0[facility] CantonBorrelia burgdorferi IgG+IgM Ab [Presence] in Serum by ImmunoassayOrdered By: Ryan Milton on 08-20-2025. burgdorferi IgG+IgM IA Ql (S)NegativeNegativeSelect Medical Specialty Hospital - CantonComment on above:Lyme antibodies not detected. Reflex testing is notindicated.No laboratory evidence of infection with B. burgdorferi(Lyme disease). Negative results may occur in patientsrecently infected (less than or equal to 14 days) with B.burgdorferi. If recent infection is suspected, repeattesting on a new sample collected in 7 to 14 days isrecommended.Performed at: [employer] [id number] Director: Cody Williamson PhD, Phone: [phone] Ab [Titer] in Serum by ImmunofluorescenceOrdered By: Ryan Milton on 08-20-2025 Centriole Ab IF (S) [Titer][facility] HospitalCentromere Ab [Titer] in Serum by ImmunofluorescenceOrdered By: Ryan Milton on 08-20-2025 Centromere Ab IF (S) [Titer][facility]idence HospitalEosinophils/100 WBC Auto (Bld)Ordered By: Florinda Flowers on 48-19-8825Gsrdeydaask/100 WBC (Bld) 1.3 %0.9-7.0[facility] CantonErythrocyte distribution width Auto (RBC) [Ratio]Ordered By: Florinda Flowers on 53-61-5595Cintixviuav distribution width (RBC) [Ratio]14.0 %11.0-15.0[facility] CantonHematocrit Auto (Bld) [Volume fraction]Ordered By: Florinda Flowers on 51-42-2086Dpngioucpz (Bld) [Volume fraction]41.1 %36.0-48.0[facility] Hemoglobin [Mass/volume] in BloodOrdered By: Florinda Flowers on 08-20-2025 Hemoglobin (Bld) [Mass/Vol]13.4 g/dL12.0-16.0[facility] Laboratory - Chemistry and Chemistry - challengeOrdered By: Ryan Milton on 94-50-1458Zvqqm [Mass/Vol]5.2 mg/dL2.6-6.0[facility] Laboratory - Hematology and Cell countsOrdered By: Ryan Milton on 08-20-2025 ESR (Bld) [Velocity]44 mm/hHigh<=30[facility] CantonLaboratory - Hematology and Cell countsOrdered By: Florinda Flowers on 58-75-3259Rlkaxhmm granulocytes/100 WBC (Bld)0.2 %0.0-0.5FUniversity Hospitals Lake West Medical Center Leukocytes [#/volume] corrected for nucleated erythrocytes in Blood by Automated counOrdered By: Florinda Flowers on 45-79-5988QIY corrected for nucl RBC Auto (Bld) [#/Vol]8.3 10 3/uL4.0-11.0[facility] CantonLymphocytes Auto (Bld) [#/Vol]Ordered By: Florinda Flowers on 23-09-3027Fhquoogcgvm (Bld) [#/Vol]1.4 10 3/uL1.2-3.8[facility] CantonLymphocytes/100 WBC Auto (Bld) Ordered By: Florinda Flowers on 05-08-1322Lgjcwkxcipp/100 WBC (Bld)16.4 %Low 20.5-60.0[facility] Auto (RBC) [Entitic mass]Ordered By: Florinda Flowers on 98-85-7282RLC (RBC) [Entitic mass]30.1 pg26.7-34.0[facility] HospitalHC Auto (RBC) [Mass/Vol]Ordered By: Florinda Flowers on 72-24-0327ZOLG (RBC) [Mass/Vol]32.6 g/dL29.9-35.2FUniversity Hospitals Lake West Medical CenterMCV Auto (RBC) [Entitic vol]Ordered By: Florinda Flowers on 47-80-2208XIM (RBC) [Entitic vol]92.4 fL81.0-99.0[facility] CantonMidbody Ab [Titer] in Serum by ImmunofluorescenceOrdered By: Ryan Milton on 08-20-2025 Midbody Ab IF (S) [Titer]TNP.[facility] - CantonMitotic spindle apparatus Ab [Titer] in Serum or Plasma by ImmunofluorescenceOrdered By: Ryan Milton on 48-45-3284Mijrwjy spindle apparatus Ab IF [Titer]TNP.[facility] CantonMonocytes Auto (Bld) [#/Vol]Ordered By: Florinda Flowers on 87-38-6920Amqllztwe (Bld) [#/Vol]0.7 10 3/uL0.3-0.8[facility] CantonMonocytes/100 WBC Auto (Bld)Ordered By: Florinda Flowers on 08-20-2025 Monocytes/100 WBC (Bld)8.4 %1.7-12.0[facility] CantonNeutrophils Auto (Bld) [#/Vol]Ordered By: Florinda Flowers on 74-57-5578Vcbxlttxkne (Bld) [#/Vol]6.1 10 3/uL1.4-6.5FUniversity Hospitals Lake West Medical CenterNeutrophils/100 WBC Auto (Bld)Ordered By: Florinda Flowers on 78-69-8197Aasgtlzoiip/100 WBC (Bld)73.2 % 43.0-75.0[facility] CantonNo Panel InformationOrdered By: Ryan Milton on 09-61-8118Rqgi-Nuclear Antibody Comment 2Comment.[facility] - CantonComment on above:Pattern Potential Disease Association Homo geneous Systemic Lupus Erythematosus, Drug Induced Systemic Lupus Erythematosus, Chronic Autoimmunehepatitis, Juvenile Idiopathic Arthritis Speckled Sjogren Syndrome, Systemic Lupus Erythematosus, Subacute Cutaneous Lupus, Lupus, Congenital Heart Block, Mixed Connective Tissue Disease, Scleroderma-diffuse, Scleroderma- Autoimmune Myositis Overlap Syndrome, Systemic Lupus Scjnvzcjqvhou-Pvvfckxjbgv-Qcfzgvbmhm Myositis Overlap Syndrome, Systemic Autoimmune Rheumatic Disease, [...] Cytopenias, Linear Scleroderma, Antiphospholipid Syndrome Performed at: [id number] [place], [place] [id number] Director: Cody Williamson PhD, Phone: [phone]-Ztejianq Protein, Quantitative<0.50 mg/dL <=0.50[facility] CantonMiscellaneous TestCOMMENT.[facility] CantonComment on above:Test Ordered: [id number] Ceron AntibodiesSmith Antibodies <0.2 AI CB Reference Range: 0.0-0.9Performed at: - [id number] [place], [place] [id number] Director: Cody Williamson PhD,Phone: [phone] Panel InformationOrdered By: Florinda Flowers on 92-30-8214Egwyodlybhs # (Auto)0.1 10 3/uL0.0-0.7FUniversity Hospitals Lake West Medical CenterImmature Granulocyte # (Auto)0.02 10 3/uL0.00-0.03[facility] CantonNuclear dots nuclear Ab pattern [Titer] in Serum by ImmunofluorescenceOrdered By: Ryan Milton on 49-60-2734Rgeulpq dots nuclear Ab pattern IF (S) [Titer]TNP.[facility] CantonNuclear membrane pores nuclear Ab pattern [Titer] in Serum by ImmunofluorescenceOrdered By: Ryan Milton on 71-27-6562Ftiwviu membrane pores nuclear Ab pattern IF (S) [Titer]TNP.[facility] - CantonPCNA extractable nuclear Ab [Titer] in Serum by ImmunofluorescenceOrdered By: Ryan Milton on 57-62-4251FPXG extractable nuclear Ab IF (S) [Titer]TNP.[facility] Platelet mean volume Auto (Bld) [Entitic vol]Ordered By: Florinda Flowers on 88-09-6395Iemqizib mean volume (Bld) [Entitic vol]10.2 fL9.5-13.5FUniversity Hospitals Lake West Medical CenterPlatelets Auto (Bld) [#/Vol]Ordered By: Florinda Flwoers on 46-12-9481Qgginxunh (Bld) [#/Vol]278 10 3/tG197-100ObnzujxcvSelect Medical Specialty Hospital - CantonRBC Auto (Bld) [#/Vol]Ordered By: Florinda Flowers on 65-77-3600MPU (Bld) [#/Vol]4.45 10 6/uL4.20-5.40[facility] Pointe Hospitalerum homogeneous pattern antinuclear antibody (WADE) titerOrdered By: Ryan Milton on 08-20-2025 Homogenous nuclear Ab pattern (S) [Titer]1:640Abnormal.[facility] CantonComment on above:ICAP nomenclature: AC-1Serum nuclear antibody titerOrdered By: Ryan Milton on 75-51-4891Zrnvzqt Ab (S) [Titer]Positive Abnormal.[facility] - CantonComment on above:Negative <1:80 Borderline 1:80 Positive >1:80Serum nucleolar pattern antinuclear antibody (WADE) titerOrdered By: Ryan Milton on 16-33-1759Mcpycmdfq nuclear Ab pattern (S) [Titer]TNP.[facility] Pointe Hospitalerum or plasma rheumatoid factor measurement (units/volume)Ordered By: Ryan Milton on 60-86-0269Eaggkvezjs factor Qn12.1 [IU]/mL<14.0[facility] - CantonComment on above: Performed at: [address] [id number] Director: Cody Williamson PhD, Phone: [phone] speckled pattern antinuclear antibody (WADE) titerOrdered By: Ryan Milton on 83-65-7656Tyuuthlj nuclear Ab pattern (S) [Titer]TNP.[facility] CantonXR Hip - right 3 Viewson 83-83-3097Vqidykr Result: AP and Lateral Right hip: AP [...] dislocation. Impression: Unremarkable right total hip arthroplasty. [facility] HealthcareRadiology Study observation (narrative)[facility] HospitalSurgical Pathologyon 11-83-7303NrdIjofchAultman HospitalLon 09-08-2024L Specimen: [id number] Received: 09/09/24 Status: NASIR [place] Num: [id number] Spec Type: Surgical Subm Dr: Rehana Reinoso DO Tissues: A Skin Cyst (LT POSTERIOR SCALP CYST) Procedures: , Gross/Micro L3 Age/ Patient Sex Location Account Attending Physician Uzma Ramirez 68/F [facility] [id number] Rehana Reinoso DO SPEC NUM: [id number] RECD: 09/09/24 STATUS: NASIR [place] NUM: [id number] MARIBELL: 09/08/24 [facility] DR: Rehana Reinoso DO ENTERED: 09/09/[address] [facility] DR: Kenneth Sanon SPEC TYPE: Surgical DEPT: FLIP FRANZ ENTERED BY: [id number] RECV BY: [id number] ORDERED: , Gross/Micro L3 ORDERED: , Gross/Micro [...] Central aspect of smaller specimen (For, jenny, B23-807 A)KAT Specimen: [id number] Received: 09/09/24 Status: NASIR [place] Num: [id number] Spec Type: Surgical Subm Dr: Rehana Reinoso DO Tissues: A Skin Cyst (LT POSTERIOR SCALP CYST) Procedures: /4, Gross/Micro L3 Patient: Uzma Ramirez [id number] (Continued) Specimen: [id number] Received: 09/09/24 (Continued) Signed (signature on file) Andreas Meier MD 09/10/24 1711 Specimen: [id number] Received: 09/09/24 Status: NASIR Clau Num: [id number] Spec Type: Surgical Subm Dr: Rehana Reinoso,DO Tissues: A Skin Cyst (LT POSTERIOR SCALP CYST) Procedures: EARL/Deondre, Gross/Micro L3 Patient: Uzma Ramirez [id number] (Continued) Specimen: [id number] Received: 09/09/24 (Continued) CPT Codes 84665 Specimen: [id number] Received: 09/09/24 Status: NASIR [place] Num: [id number] Spec Type: Surgical Subm Dr: Rehana Reinoso DO Tissues: A Skin Cyst (LT POSTERIOR SCALP CYST) Procedures: Eddie PASCAL/Luisana L3 Patient: Uzma Ramirez [id number] (Continued) Signed (signature on file) Andreas Meier MD 09/10/[address] [place] [address] Physician GroupUnlisted Non-[facility] Procedure on 22-53-3241RtnSvircx Health SystemColonoscopyon 04-66-4659CvhBizycz [facility] 57-39-2393GHgllpcsp: [id number] Received: 02/05/24 Status: NASIR Coradoq Num: [id number] Spec Type: Surgical Subm Dr: Rehana Reinoso DO Tissues: A Colon Biopsy (SIGMOID POLYP) B Colon Biopsy (CECUM) C Colon Biopsy (DESC) D Colon Biopsy (RECTAL SIGMOID JUNCTION) Procedures: HE/8, Gross/Micro L4/4 Age/ Patient Sex Location Account Attending Physician Uzma Ramirez 68/F LAB[facility] [id number] Rehana Reinoso DO SPEC NUM: [id number] RECD: 02/05/24 STATUS: NASIR [place] NUM: [id number] MARIBELL: 02/05/24 DR: Rehana Reinoso DO ENTERED: 02/05/[address] [facility] [address]: Kenneth Sanon SPEC TYPE: Surgical DEPT: [...] also provided B, cecum polyp polypectomy: Specimen: [id number] Received: 02/05/24 Status: NASIR [place] Num: [id number] Spec Type: Surgical Subm Dr: Rehana Reinoso DO Tissues: A Colon Biopsy (SIGMOID POLYP) B Colon Biopsy (CECUM) C Colon Biopsy (DESC) D Colon Biopsy (RECTAL SIGMOID JUNCTION) Procedures: /Gilberto, Gross/Micro L4/4 Patient: Uzma Ramirez [id number] (Continued) Specimen: [id number] Received: 02/05/24 (Continued) Pathological Diagnosis (Continued) Signed (signature on file) Tamiko Antony MD 02/08/24 1856 Specimen: [id number] Received: 02/05/24 Status: NASIR [place] Num: [id number] Spec Type: Surgical Subm Dr: Rehana Reinoso,DO Tissues: A Colon Biopsy (SIGMOID POLYP) B Colon Biopsy (CECUM) C Colon Biopsy (DESC) D Colon Biopsy (RECTAL SIGMOID JUNCTION) Procedures: HE/8, Gross/Micro L4/4 Patient: Uzma Ramirez [id number] (Continued) Specimen: [id number] Received: 02/05/24 (Continued) Pathological Diagnosis (Continued) -Tubular [...] totally submitted in cassette D1. CPT Codes 39875 x 4 Specimen: [id number] Received: 02/05/24 Status: NASIR [place] Num: [id number] Spec Type: Surgical Subm Dr: Rehana Reinoso DO Tissues: A Colon Biopsy (SIGMOID POLYP) B Colon Biopsy (CECUM) C Colon Biopsy (DESC) D Colon Biopsy (RECTAL SIGMOID JUNCTION) Procedures: Eddie BACA/Luisana L4/4 Patient: Uzma Ramirez [id number] (Continued) (more content not included)...NormalThe [facility] Group Surgical PathologyOrdered By: Katherine Rubio on 35-22-7993LelCkppbeAultman HospitalANTICARDIOLIPIN AB (AKASH) IGA/IGG/IGMon 89-49-6140Mluhcrtkqrlnhfz Ab,IgA,Qn <0Crnrog7-95Fsh [facility] TrumbullComment on above:Result Comment: Negative: <12 Indeterminate: 12 - 20 Low-Med Positive: >20 - 80 High Positive: >80Performed By: #### ACAQUAN #### [facility] [address] [place] [address] Dr. Myrna AntonyAnticardiolipin Ab,IgG,Qn<0Gpalze5-05Nlm [facility] TrumbullComment on above:Result Comment: Negative: <15 Indeterminate: 15 - 20 Low-Med Positive: >20 - 80 High Positive: >80Performed By: #### ACAQUAN #### [facility] [address] [address] [address] Myrna AntonyAnticardiolipin Ab,IgM,Qn22 MPL U/mLCritically high0-12The [facility] TrumbullComment on above:Result Comment: Negative: <13 Indeterminate: 13 - 20 Low-Med Positive: >20 - 80 High Positive: >80Performed By: #### ACAQUAN #### [facility] [address] [place] [address] Dr. Myrna Cardozo 43-22-2482UEN [Mass/Vol]mg/LNormal<=1.0The [facility] - TrumbullComment on above:Performed By: #### CRP #### [facility] [address] [place] [address] Dr. Myrna AntonySED RATE WESTERGRENon 36-11-5005ITL RATE32 mm/hrCritically high <=30The [facility] - TrumbullComment on above:Performed By: #### ACAQUAN #### [facility] [address] [place] [address] Dr. Myrna AntonyCBC AUTO DIFFon 08-90-6445DBZI #0.0 103/ulNormal0.0-0.1The [facility] - TrumbullComment on above:Performed By: #### CBC #### [facility] [address] [place] [address] Dr. Myrna AntonyBasophils/100 WBC (Bld)0.5 %Normal0.2-2.0The [facility] Comment on above:Performed By: #### CBC #### [facility] [address] [place] [address] Dr. Myrna Ramachandran #0.3 103/ulNormal0.0-0.7The [facility] - TrumbullComment on above: Performed By: #### CBC #### [facility] [address] [place] [address] Dr. Myrna Rodriguezosinophils/100 WBC (Bld)3.9 %Normal0.9-7.0The [facility] Comment on above:Performed By: #### CBC #### [facility] [address] [place] [address] Dr. Myrna Rodriguezrythrocyte distribution width (RBC) [Ratio]13.6 %Mbmcwk96.0-15.0 The [facility] - TrumbullComment on above:Performed By: #### CBC #### [facility] [address] [place] [address] Dr. Myrna AntonyHematocrit (Bld) [Volume fraction]40.4 %Zsqado81.0-48.0The [facility] - TrumbullComment on above:Performed By: #### CBC #### [facility] [address] [place] [address] Dr. Myrna AntonyHemoglobin (Bld) [Mass/Vol]13.5 g/zZEbuejg95.0-16.0The [facility] - TrumbullComment on above:Performed By: #### CBC #### [facility] [address] [place] [address] Dr. Myrna Adams #0.02 10e3/ulNormal0.00-0.03The [facility] - TrumbullComment on above:Performed By: #### CBC #### [facility] [address] [place] [address] Dr. Myrna Adams %0.2 %Normal0.0-0.5The [facility] - TrumbullComment on above: Performed By: #### CBC #### [facility] [address] [place] [address] Dr. Myrna Huddleston #1.5 103/ulNormal1.2-3.8The [facility] - TrumbullComment on above:Performed By: #### CBC #### [facility] [address] [place] [address] Dr. Myrna Kennedyhocytes/100 WBC (Bld)19.2 %Critically low20.5-60.0The [facility] - TrumbullComment on above:Performed By: #### CBC #### [facility] [address] [place] [address] Dr. Myrna Dueñas DIFF REQNONormalThe [facility] - TrumbullComment on above: Performed By: #### CBC #### [facility] [address] [place] [address] Dr. Myrna Mccarty (RBC) [Entitic mass]29.7 igXsbeag19.7-34.0The [facility] - TrumbullComment on above:Performed By: #### CBC #### [facility] [address] [place] [address] Dr. Myrna Horton (RBC) [Mass/Vol]33.4 g/nMWbodos69.9-35.2The [facility] - TrumbullComment on above:Performed By: #### CBC #### [facility] [address] [place] [address] Dr. Myrna Sutherland (RBC) [Entitic vol]89.0 yFVaywla14.0-99.0The [facility] - TrumbullComment on above:Performed By: #### CBC #### [facility] [address] [place] [address] Dr. Myrna Olivares #0.8 103/ulNormal0.3-0.8The [facility] - TrumbullComment on above:Performed By: #### CBC #### [facility] [address] [place] [address] Dr. Myrna Trammellocytes/100 WBC (Bld)10.2 %Normal1.7-12.0The [facility] Comment on above:Performed By: #### CBC #### [facility] [address] [place] [address] Dr. Myrna Noriega #5.3 103/ulNormal1.4-6.5The [facility] - TrumbullComment on above:Performed By: #### CBC #### [facility] [address] [place] [address] Dr. Myrna Kingutrophils/100 WBC (Bld)66.0 %Bcovvv69.0-75.0The [facility] - TrumbullComment on above:Performed By: #### CBC #### [facility] [address] [place] [address] Dr. Myrna AntonyPlatelet mean volume (Bld) [Entitic vol]9.2 fLCritically low 9.5-13.5The [facility] TrumbullComment on above:Performed By: #### CBC #### [facility] [address] [place] [address] Dr. Myrna AntonyPLT277 103/qhKygwsz306-150Jlz [facility] TrumbullComment on above: Performed By: #### CBC #### [facility] [address] [place] [address] Dr. Myrna AntonyRBC4.54 106/ulNormal4.20-5.40The [facility] - TrumbullComment on above:Performed By: #### CBC #### [facility] [address] [place] [address] Dr. Myrna AntonyWBC8.0 103/ulNormal4.0-11.0The [facility] - TrumbullComment on above: Performed By: #### CBC #### [facility] [address] [place] [address] Dr. Myrna AntonyLIPID PROFILEon 90-38-1324YCCK-HDL RATIO NORMSEE BELOWChillicothe VA Medical CenterComment on above:Result Comment: 3.3 - 4.4 LOW RISK 4.4 - 7.1 AVERAGE RISK 7.1 - 11.0 MODERATE RISK >11.0 HIGH RISKPerformed By: #### ACAQUAN #### [facility] [address] [address] [address] Myrna AntonyCholesterol [Mass/Vol]192 mg/dLNormal<=200[facility] Comment on above:Performed By: #### ACAQUAN #### [facility] [address] [address] [address] Myrna AntonyCholesterol in HDL [Mass/Vol]69 mg/dLCritically anel18-27OfqHarrison Community HospitalComment on above:Performed By: #### ACAQUAN #### [facility] [address] [place] [address] Dr. Myrna AntonyCholesterol in LDL [Mass/Vol]99.8 mg/dLChillicothe VA Medical CenterComment on above:Performed By: #### ACAQUAN #### [facility] [address] [place] [address] Dr. Myrna AntonyCholestermayra.total/Cholesterol in HDL [Mass ratio]2.8 {ratio} NormalHarrison Community HospitalComment on above:Performed By: #### ACAQUAN #### [facility] [address] [place] [address] Dr. Myrna AntonyHDJt NORMAL> or = 60 mg/dl - LOW CARDIOVASCULAR RISK <40 mg/dl - HIGH CARDIOVASCULAR RISKChillicothe VA Medical CenterComment on above:Performed By: #### ACAQUAN #### [facility] [address] [place] [address] Dr. Myrna AntonyLDL CALC NORMALSEE BELOWChillicothe VA Medical CenterComment on above:Result Comment: <100 mg/dl OPTIMAL 100 - 129 mg/dl NEAR OR ABOVE OPTIMAL 130 - 159 mg/dl BORDERLINE HIGH 160 - 189 mg/dl HIGH >190 mg/dl VERY HIGH Performed By: #### ACAQUAN #### [facility] [address] [place] [address] Dr. Myrna AntonyTriglyceride [Mass/Vol]116 mg/dLNormal<=150[facility] Comment on above:Performed By: #### ACAQUAN #### [facility] [address] [address] [address] Myrna AntonyVLDL CALC23.2 mg/dLNormalThe [facility] - TrumbullComment on above: Performed By: #### ACAQUAN #### [facility] [address] [address] [address] Myrna AntonyPROF 14(COMP METB)on 40-33-4980Rtsjvgm [Mass/Vol]3.9 g/dLNormal 3.4-5.0The [facility] HospitalComment on above:Performed By: #### ACAQUAN #### [facility] [address] [address] [address] Myrna nAtonyAlbumin/Globulin [Mass ratio]1.1 {ratio}NormalThe [facility] TrumbullComment on above:Performed By: #### ACAQUAN #### [facility] [address] [place] [address] Dr. Myrna BullockP [Catalytic activity/Vol]57 U/RUgbnkm18-191Xow [facility] TrumbullComment on above:Performed By: #### ACAQUAN #### [facility] [address] [address] [address] Myrna Oliver [Catalytic activity/Vol]39 U/AQlurjt91-90Exg [facility] TrumbullComment on above:Performed By: #### ACAQUAN #### [facility] [address] [place] [address] Dr. Myrna Neville gap [Moles/Vol]12.7 mmol/LNormalThe [facility] Comment on above:Performed By: #### ACAQUAN #### [facility] [address] [place] [address] Dr. Myrna AntonyAST [Catalytic activity/Vol]32 U/CFulyod27-21Let [facility] TrumbullComment on above:Performed By: #### ACAQUAN #### [facility] [address] [address] [address] Myrna AntonyBilirubin [Mass/Vol]1.4 mg/dLCritically high0.2-1.0The [facility] TrumbullComment on above:Performed By: #### ACAQUAN #### [facility] [address] [address] [address] Myrna AntonyCalcium [Mass/Vol]9.6 mg/dLNormal8.5-10.1The [facility] Comment on above:Performed By: #### ACAQUAN #### [facility] [address] [address] [address] Myrna AntonyChloride [Moles/Vol]103 mmol/MMstrze94-861Kcz [facility] Comment on above:Performed By: #### ACAQUAN #### [facility] [address] [address] [address] Myrna AntonyCO2 [Moles/Vol]26.5 mmol/YQjhbxp45.0-32.0The [facility] Comment on above:Performed By: #### ACAQUAN #### [facility] [address] [address] [address] Myrna AntonyCreatinine [Mass/Vol]1.06 mg/dLCritically high0.55-1.02[facility] HospitalComment on above:Performed By: #### ACAQUAN #### [facility] [address] [address] [address] Norris ChangEGFR-AF SUDANESE>60Normal>=60The [facility] TrumbullComment on above:Performed By: #### ACAQUAN #### [facility] [address] [address] [address] Myrna RodriguezGFR-NON AF MMWZIIUQ88 mL/min/1.45b0Mbieywseza low>=60The [facility] TrumbullComment on above:Performed By: #### ACAQUAN #### [facility] [address] [address] [address] Myrna AntonyGlobulin (S) [Mass/Vol]3.6 g/dLNormalThe [facility] TrumbullComment on above:Performed By: #### ACAQUAN #### [facility] [address] [address] [address] Myrna AntonyGlucose [Mass/Vol]104 mg/oILtagnx25-371Yjw [facility] Comment on above:Performed By: #### ACAQUAN #### [facility] [address] [address] [address] Myrna AntonyPotassium [Moles/Vol]4.2 mmol/LNormal3.5-5.1The [facility] Comment on above:Performed By: #### ACAQUAN #### [facility] [address] [address] [address] Myrna AntonyProtein [Mass/Vol]7.5 g/dLNormal6.4-8.2The [facility] Comment on above:Performed By: #### ACAQUAN #### [facility] [address] [place] [address] Dr. Myrna AntonySodium [Moles/Vol]138 mmol/RPeapuh479-174Ojq [facility] Comment on above:Performed By: #### ACAQUAN #### [facility] [address] [place] [address] Dr. Myrna AntonyUrea nitrogen [Mass/Vol]29.0 mg/dLCritically high7.0-18.0[facility] HospitalComment on above:Performed By: #### ACAQUAN #### [facility] [address] [place] [address] Dr. Myrna Lawson nitrogen/Creatinine [Mass ratio]27.4 mg/mgNormalThe [facility] TrumbullComment on above:Performed By: #### ACAQUAN #### [facility] [address] [place] [address] Dr. Myrna AntonyCovid-19 PCR ([facility]VDFOXBOR[facility])on 47-32-0101HRRR-CoV-2 (COVID-19) RNA NEO+probe Ql (Unsp spec)Not detectedNormalNOT DETECTEDThe [facility] Comment on above:Result Comment: This test is not yet approved or cleared by the [place] FDA. When there are no FDA-approved or cleared tests available, and other criteria are met, FDA can make tests available under an emergency access mechanism called an Emergency Use Authorization (EUA). The EUA for this test is supported by the Hazard Mitigation Officer of Health and Human Service's (HHS's) declaration [...] consistent with SARS-CoV-2.Performed By: #### CVDTBH #### [facility] [address] [place] [address] Dr. Myrna AntonyANTICARDIOLIPIN AB (AKASH) IGA/IGG/IGMon 75-23-3487Hcwneulfdvooxlh Ab,IgA,Qn<7Kxjkvc6-84LgrPremier Health Upper Valley Medical Centerment on above:Result Comment: Negative: <12 Indeterminate: 12 - 20 Low-Med Positive: >20 - 80 High Positive: >80Performed By: #### ACAQUAN #### [facility] [address] [place] [address] Dr. Myrna AntonyAnticardiolipin Ab,IgG,Qn<2Peawlz3-94Wnj [facility] TrumbullComment on above:Result Comment: Negative: <15 Indeterminate: 15 - 20 Low-Med Positive: >20 - 80 High Positive: >80Performed By: #### ACAQUAN #### [facility] [address] [place] [address] Dr. Myrna AntonyAnticardiolipin Ab,IgM,Qn57 MPL U/mLCritically high0-12The [facility]ment on above:Result Comment: Negative: <13 Indeterminate: 13 - 20 Low-Med Positive: >20 - 80 High Positive: >80Performed By: #### ACAQUAN #### [facility] [address] [place] [address] Dr. Myrna Cardozo 91-10-0773ACX [Mass/Vol]mg/LNormal<=1.0The [facility]ment on above:Performed By: #### CRP #### [facility] [address] [address] [address] Myrna Anders RATE WESTERGRENon 49-95-3693OQV RATE39 mm/hrCritically high <=30The [facility] TrumbullComment on above:Performed By: #### SEDR #### [facility] [address] [place] [address] Dr. Myrna AntonyCOVID/FLU RT-PCRon 63-21-2701XWSM-CoV-2 (COVID-19) RNA NEO+probe Ql (Unsp spec)NegativeNodeaconess incarnate word health system Moovly Other COVID/FLU RT-PCRPositiveDemocravise Other COVID/FLU RT-PCRNegativeDemocravise Other LIPID PROFILEon 19-12-5440CENB-HDL RATIO NORMSEE BELOW NormalThe [facility] on above:Result Comment: 3.3 - 4.4 LOW RISK 4.4 - 7.1 AVERAGE RISK 7.1 - 11.0 MODERATE RISK >11.0 HIGH RISKPerformed By: #### ACAQUAN #### [facility] [address] [place] [address] Dr. Myrna Ramosesterol [Mass/Vol]177 mg/dLNormal<=200The [facility] Comment on above:Performed By: #### ACAQUAN #### [facility] [address] [place] [address] Dr. Myrna Ramosesterol in HDL [Mass/Vol]70 mg/dLCritically eirq63-99Mrq [facility] TrumbullComment on above:Performed By: #### ACAQUAN #### [facility] [address] [place] [address] Dr. Myrna Ramosesterol in LDL [Mass/Vol]92.4 mg/dLNormalThe [facility] TrumbullComtrinity health [facility] on above:Performed By: #### ACAQUAN #### [facility] [address] [place] [address] Dr. Myrna Leon.total/Cholesterol in HDL [Mass ratio]2.5 {ratio} NormalThe Fab HospitalComment on above:Performed By: #### ACAQUAN #### [facility] [address] [address] [address] Myrna Martinez NORMAL> or = 60 mg/dl - LOW CARDIOVASCULAR RISK <40 mg/dl - HIGH CARDIOVASCULAR RISKChillicothe VA Medical CenterComment on above:Performed By: #### ACAQUAN #### [facility] [address] [place] [address] Dr. Myrna AntonyLDL CALC NORMALSEE BELOWChillicothe VA Medical CenterComment on above:Result Comment: <100 mg/dl OPTIMAL 100 - 129 mg/dl NEAR OR ABOVE OPTIMAL 130 - 159 mg/dl BORDERLINE HIGH 160 - 189 mg/dl HIGH >190 mg/dl VERY HIGH Performed By: #### ACAQUAN #### [facility] [address] [place] [address] Dr. Myrna AntonyTriglyceride [Mass/Vol]73 mg/dLNormal<=150[facility] Comment on above:Performed By: #### ACAQUAN #### [facility] [address] [address] [address] Myrna Guzman CALC14.6 mg/dLNoThe Bellevue HospitalComment on above: Performed By: #### ACAQUAN #### [facility] [address] [place] [address] Dr. Myrna Horne 34-93-4096XMN [Catalytic activity/Vol]34 U/SXekhet22-24Bvn [facility] on above:Performed By: #### ACAQUAN #### [facility] [address] [place] [address] Dr. Myrna Andino 10-21-2829CYB [Catalytic activity/Vol]44 U/NPehuju89-89Qwe [facility] on above:Performed By: #### ACAQUAN #### [facility] [address] [place] [address] Dr. Myrna Williamson Visit (Cardiology)on 91-56-7497Vzahsj-up visit Diagnoses/Problems Assessed Essential hypertension (401.9) (I10) Hyperlipidemia, unspecified (272.4) (E78.5) Sinus bradycardia (427.89) (R00.1) Former smoker (V15.82) (Z87.891) Overweight (278.02) (E66.3) Orders Hyperlipidemia, unspecified Renew: Rosuvastatin Calcium 40 MG Oral Tablet; TAKE 1 TABLET DAILY ALT - Alanine Aminotransferase, Serum; Status:Active; Requested for:87Mxb7030; AST; Status:Active; Requested for:34Rtf1340; Lipid Panel; Status:Active; Requested for:26Yal1071; SocHx: Former smoker Tobacco Use Screening; Status:Complete; Done: 52Ova3809 Patient Instructions Please bring all medicines, vitamins, [...] prednisone managed by rheumatology Lei Perez MD, [facility] Active Problems Problems Essential hypertension [...] negative for complaint. Vitals Vital Signs Recorded: [id number] 01:49PM Heart Rate66, L Radial Rrpppbez585, RUE, Sitting Wpzbwjqkq03, RUE, Sitting Height5 ft 6 in Tobacco [...] (more content not included)... NormalUH TouchworksTobacco Screening.on 59-38-3841Xkfky depression screening assessmentNoFranciscan Health 3G [employer] DO Work Phone: Fall risk assessmenta) No falls within the last year [facility] [employer] GuardianSan DiegoOpenTable DO Work Phone: Tobacco use status CPHSb) NoMIsland [facility] Post[employer] DO Work Phone: Activated partial thromboplastin time (aPTT) in platelet poor plasma by coagulation aOrdered By: Teetee Rizvi on 10-82-5461rQPK Coag (PPP) [Time]28.8 s25.1-36.5FUniversity Hospitals Lake West Medical CenterAlbumin [Mass/volume] in Serum or PlasmaOrdered By: Teetee Rizvi on 86-59-7313Fnrlsxm [Mass/Vol]3.7 g/dL3.2-5.5FUniversity Hospitals Lake West Medical CenterAutomated erythrocytes count in urine sediment (number/area)Ordered By: Teetee Rizvi on 48-08-4705XVN Auto (Urine sed) [#/Area]5-9 [HPF]0-4FUniversity Hospitals Lake West Medical CenterAutomated leukocytes count in urine sediment (number/area)Ordered By: Teetee Rizvi on 47-23-1843SIG Auto (Urine sed) [#/Area]1-2 [HPF]0-4FUniversity Hospitals Lake West Medical CenterBilirubin Test strip Ql (U)Ordered By: Teetee Rizvi on 56-91-0743Rpvyfsuar Ql (U)NegativeNegMercy Health St. Anne HospitalBlood hemoglobin measurement (mass/volume)Ordered By: Teetee Rizvi on 65-64-5657Arnjwizjhi (Bld) [Mass/Vol]12.6 g/dL11.8-15.4FUniversity Hospitals Lake West Medical CenterColor Auto (U) Ordered By: Teetee Rizvi on 73-51-2226Odwqf (U)YellowYellowSelect Medical Specialty Hospital - CantonCreatinine [Mass/volume] in UrineOrdered By: Teetee Rizvi on 37-34-0581Abseumyddi (U) [Mass/Vol]235.6 mg/dLSelect Medical Specialty Hospital - Canton Comment on above:No reference range establishedCreatinine and Glomerular filtration rate.predicted panel (S/P/Bld)Ordered By: Teetee Rizvi on 07-04-2022 Creatinine [Mass/Vol]0.76 mg/dL0.44-1.03[facility] Erythrocyte distribution width Auto (RBC) [Ratio]Ordered By: Teetee Rizvi on 26-33-4948Pjcxkeapyyr distribution width (RBC) [Ratio]14.1 %11.9-15.3FUniversity Hospitals Lake West Medical CenterEstimated glomerular filtration rate (GFR) non- AmericanOrdered By: Teetee Rizvi on 30-32-9767YKZ/1.73 sq M.predicted among non- blacks MDRD (S/P/Bld) [Vol rate/Area]> 60 mL/MinSelect Medical Specialty Hospital - CantonGlobulin Calc (S) [Mass/Vol]Ordered By: Teetee Rizvi on 38-58-2690Yefdwhsw (S) [Mass/Vol]3.1 g/dLSelect Medical Specialty Hospital - CantonHematocrit Auto (Bld) [Volume fraction]Ordered By: Teetee Rizvi on 21-54-2005Bqhjlxrqox (Bld) [Volume fraction]38.3 %34.0-46.4FUniversity Hospitals Lake West Medical CenterHepatitis B virus surface Ag [Presence] in Serum or Plasma by ImmunoassayOrdered By: Teetee Rizvi on 94-59-6974YMQ surface Ag IA QlNegativeNegMercy Health St. Anne HospitalComment on above:Performed at: CB - Lab[address] [id number] Preform Plate Maker: Cody Williamson PhD, Phone: [phone] Auto test strip (U) [Mass/Vol]Ordered By: Teetee Rizvi on 94-08-2713Wscqfsd (U) [Mass/Vol]Trace NegativeSelect Medical Specialty Hospital - CantonLaboratory - CoagulationOrdered By: Teetee Rizvi on 44-83-9458EJ Coag (PPP) [Time]10.1 s9.0-12.9[facility] CantonLaboratory - UrinalysisOrdered By: Teetee Rizvi on 07-04-2022 Hyaline casts LM Ql (Urine sed)9-19 [LPF]0-8[facility] Auto (RBC) [Entitic mass]Ordered By: Teetee Rizvi on 13-79-3000FBH (RBC) [Entitic mass]29.1 pg24.7-34.3FAshtabula General HospitalHC Auto (RBC) [Mass/Vol]Ordered By: Teetee Rizvi on 44-29-1073PVQF (RBC) [Mass/Vol]32.8 g/dL 32.0-35.0[facility] HospitalV Auto (RBC) [Entitic vol]Ordered By: Teetee Rizvi on 23-18-7464EGN (RBC) [Entitic vol]88.7 aV87-852TzmllmznjSelect Medical Specialty Hospital - CantonNitrite Test strip Ql (U)Ordered By: Teetee Rizvi on 45-39-6176Awirvsf Ql (U)NegativeNegativeSelect Medical Specialty Hospital - CantonNo Panel InformationOrdered By: Teetee Rizvi on 44-36-395352144782-Rajazam Vitamin D Total42.1 ng/jT60-806BhoexontbSelect Medical Specialty Hospital - CantonComment on above:VITAMIN D STATUS 25(OH)VITAMIN D RANGE (ng/mL) Deficient <20 Insufficient 20 to <30 Sufficient 30 to 100 Reference: Vero MF,Nara TRAMMELL, Darius RHODES, et al. Evaluation,treatment, and prevention of vitamin D deficiency; an Endocrine Society clinical practice guideline. JCEM. 2010; 96(7):1911-30.Estimated GFR ()> 60 mL/MinSelect Medical Specialty Hospital - CantonComment on above: GFR estimated reference range: According to KDOQI guidelines, <60 ml/min/1.73m2 is sufficient todiagnose a patient with chronic kidney disease.Pharmacy Creatinine Clearance (Chem76.30[facility] Hospital - CantonPlatelet mean volume Auto (Bld) [Entitic vol]Ordered By: Teetee Rizvi on 86-18-4110Iryddwwt mean volume (Bld) [Entitic vol]8.0 fL6.3-10.7FUniversity Hospitals Lake West Medical Center Platelet poor plasma international normalized ratio (INR) by coagulation assay (relatOrdered By: Teetee Rizvi on 06-82-4633XCF Coag (PPP) [Relative time]0.9 {INR}[facility] - CantonComment on above:INR Therapeutic Range A) Pre- and [...] Auto (Bld) [#/Vol]Ordered By: Teetee Rizvi on 61-54-1848Duhbnletc (Bld) [#/Vol]269 10*3/uL 150-450[facility] - CantonProtein Auto test strip (U) [Mass/Vol] Ordered By: Teetee Rizvi on 50-26-9155Xjvfyqf (U) [Mass/Vol]100 mg/dLNegative [facility] CantonProtein [Mass/volume] in Serum or PlasmaOrdered By: Teetee Rizvi on 93-39-5017Eriypbi [Mass/Vol]6.8 g/dL6.1-7.9[facility] - CantonProtein [Mass/volume] in UrineOrdered By: Teetee Rizvi on 94-00-4875Obqkgkc (U) [Mass/Vol]61 mg/dL0-9[facility] Hospital - CantonRBC Auto (Bld) [#/Vol]Ordered By: Teetee Rizvi on 99-36-0543YFY (Bld) [#/Vol]4.32 10*6/uL3.60-5.00[facility] Hospitalerum or plasma alanine aminotransferase measurement without P-5'-P (enzymatic activiOrdered By: Teetee Rizvi on 33-92-3406MJB No additional P-5'-P [Catalytic activity/Vol]20 U/L 10-60[facility] Hospitalerum or plasma albumin/globulin mass ratioOrdered By: Teetee Rizvi on 05-37-5011Biatcab/Globulin [Mass ratio]1.2 {ratio}[facility] Hospitalerum or plasma alkaline phosphatase measurement (enzymatic activity/volume)Ordered By: Teetee Rizvi on 72-78-3040EGX [Catalytic activity/Vol]61 U/N46-43WelyweqmtCleveland Clinic South Pointe Hospitalerum or plasma anion gap determinationOrdered By: Teetee Rizvi on 02-92-8377Rdsuk gap [Moles/Vol]13.7 mmol/L6.0-15.0[facility] Hospitalerum or plasma aspartate aminotransferase measurement (enzymatic activity/volume)Ordered By: Teetee Rizvi on 92-53-8558GSF [Catalytic activity/Vol]22 U/T32-71GlnqrtxivCleveland Clinic South Pointe Hospitalerum or plasma calcium measurement (mass/volume)Ordered By: Teetee Rizvi on 97-53-2678Oprucld [Mass/Vol]8.9 mg/dL8.2-10.2FUC Medical Centererum or plasma chloride measurement (moles/volume) Ordered By: Teetee Rizvi on 34-98-9924Agtndsne [Moles/Vol]106 mmol/L95-114 [facility] Hospitalerum or plasma complement C3 measurement (mass/volume)Ordered By: Teetee Rizvi on 43-32-8951Vcswxiptdb C3 [Mass/Vol]144 mg/iK13-995XqwtiebrqSelect Medical Specialty Hospital - CantonComment on above:Performed at: [address] [id number] Preform Plate Maker: Cody Williamson PhD, Phone: [phone] or plasma complement C4 measurement (mass/volume)Ordered By: Teetee Rizvi on 08-49-0325Radmnbnsqe C4 [Mass/Vol]22 mg/eV06-05PvpcjngzaCleveland Clinic South Pointe Hospitalerum or plasma free cefuroxime measurement (mass/volume)Ordered By: Teetee Rizvi on 07-04-2022 Cefuroxime free [Mass/Vol]NegativeNegativeSelect Medical Specialty Hospital - [facility] Comment on above:Performed at: - Labco[address] [id number] Preform Plate Maker: Cody Williamson PhD, Phone: [phone] or plasma glucose measurement (mass/volume)Ordered By: Teetee Rizvi on 65-41-9166[place] [Mass/Vol]119 mg/fF81-546EvfcngukgSelect Medical Specialty Hospital - CantonComment on above:ADA recommended reference range Random Glucose Reference Range is dependent on time and content of last meal. Glucose of more than 200 mg/dL in a nonstressed, ambulatory subject supports the diagnosis of Diabetes Mellitus.Serum or plasma intact parathyroid hormone measurement (mass/volume)Ordered By: Teetee Rizvi on 79-01-7877Kzbuffhyhi.intact [Mass/Vol]80.6 pg/oU10-65MkltwnplpCleveland Clinic South Pointe Hospitalerum or plasma potassium measurement (moles/volume)Ordered By: Teetee Rizvi on 07-04-2022 Potassium [Moles/Vol]3.8 mmol/L3.5-5.1FUC Medical Centererum or plasma sodium measurement (moles/volume)Ordered By: Teetee Rizvi on 07-04-2022 Sodium [Moles/Vol]139 mmol/U952-451KoowaoiitCleveland Clinic South Pointe Hospitalerum or plasma total bilirubin measurement (mass/volume)Ordered By: Teetee Rizvi on 64-02-9241Mwdnvoowl [Mass/Vol]1.6 mg/dL0.3-1.2FUniversity Hospitals Lake West Medical Center Comment on above:Samples from patients who have taken Naproxen have shown spurious elevation in Total Bilirubin levels. A metabolite of Naproxen, O- desmethylnaproxen, has been shown to interfere with the Carmen-William method for measuring Total Bilirubin.Serum or plasma total carbon dioxide measurement (moles/volume)Ordered By: Teetee Rizvi on 29-77-9359ZF7 [Moles/Vol]23.1 mmol/L 22.0-30.0[facility] Hospitalerum or plasma urea nitrogen measurement (mass/volume)Ordered By: Teetee Rizvi on 51-13-0794Wapy nitrogen [Mass/Vol]15 mg/dL9-23[facility] Hospitalerum or plasma uric acid measurement (mass/volume)Ordered By: Teetee Rizvi on 28-42-3643Sdzxx [Mass/Vol] 5.1 mg/dL2.6-7.2FUC Medical Centerpecific gravity Auto test strip (U) [Rel density]Ordered By: Teetee Rizvi on 76-33-7176Mlxbqghy gravity (U) [Rel density]1.0211.001-1.030[facility] Hospitalquamous epithelial cells detection in urine sediment by light microscopyOrdered By: Teetee Rizvi on 01-62-2169Auhpggyeba cells.squamous LM Ql (Urine sed)1-2 [HPF]0-2 [facility] - CantonUrine bacteria detection by automated method Ordered By: Teetee Rizvi on 37-47-6140Jlfoplfb Auto Ql (U)None seenNone Seen [facility] - CantonUrine clarity by refractometry automatedOrdered By: Teetee Rizvi on 35-24-4426Nkhkagh Refractometry automated (U)ClearClear [facility] - CantonUrine glucose measurement by automated test strip (mass/volume)Ordered By: Teetee Rizvi on 94-66-6321Eenevwo Auto test strip (U) [Mass/Vol]Normal mg/dLNormalSelect Medical Specialty Hospital - CantonUrine hemoglobin detection by automated test stripOrdered By: Teetee Rizvi on 10-15-1880Dbfxsakikp Auto test strip Ql (U)NegativeNegativeSelect Medical Specialty Hospital - CantonUrine leukocyte esterase detection by automated test stripOrdered By: Teetee Rizvi on 74-61-1470Prwumtmqi esterase Auto test strip Ql (U)Negative NegativeSelect Medical Specialty Hospital - CantonUrine protein/creatinine ratioOrdered By: Teetee Rizvi on 85-77-6356Cskizrv/Creatinine (U) [Ratio]259 mg/g{Cre}0-200 [facility] - CantonUrine sediment renal epithelial cell count by microscopy (number/high power field)Ordered By: Teetee Rizvi on 07-04-2022 Epithelial cells.renal LM.HPF (Urine sed) [#/Area]None seen [HPF]0-1FUniversity Hospitals Lake West Medical CenterUrobilinogen Auto test strip (U) [Mass/Vol]Ordered By: Teetee Rizvi on 79-62-0035Pwnfyfkpbrih (U) [Mass/Vol]Normal mg/dLNormalSelect Medical Specialty Hospital - CantonWBC Auto (Bld) [#/Vol]Ordered By: Teetee Rizvi on 06-75-4273UHD (Bld) [#/Vol]6.9 10*3/uL3.8-11.6FUniversity Hospitals Lake West Medical Center pH Auto test strip (U)Ordered By: Teetee Rizvi on 22-88-9249uI (U)6.5 [pH] 5.0-9.0[facility] CantonANTICARDIOLIPIN AB (AKASH) IGA/IGG/IGMon 62-80-9593Fjpfuynlcnuopqt Ab,IgA,Qn<2Wxqnfn1-49Psu [facility] TrumbullComment on above:Result Comment: Negative: <12 Indeterminate: 12 - 20 Low-Med Positive: >20 - 80 High Positive: >80Performed By: #### ACAQUAN #### [facility] [address] [place] [address] Dr. Myrna AntonyAnticardiolipin Ab,IgG,Qn<4Xziznp8-32Xpj [facility] TrumbullComment on above:Result Comment: Negative: <15 Indeterminate: 15 - 20 Low-Med Positive: >20 - 80 High Positive: >80Performed By: #### ACAQUAN #### [facility] [address] [place] [address] Dr. Myrna AntonyAnticardiolipin Ab,IgM,Qn44 MPL U/mLCritically high0-12The [facility] [facility]Comment on above:Result Comment: Negative: <13 Indeterminate: 13 - 20 Low-Med Positive: >20 - 80 High Positive: >80Performed By: #### ACAQUAN #### [facility] [address] [place] [address] Dr. Myrna Cardozo 08-07-9296WQS [Mass/Vol]mg/LNormal<=1.0The Fab HospitalComment on above:Performed By: #### CRP #### [facility] [address] [address] [address] Myrna AntonyMG MAMM SCREEN 3D YAYO CADon 92-92-5044QN MAMM SCREEN 3D YAYO CAD Patient: UZMA RAMIREZ Exam Date: 07/02/2022 : 1955 Gender:F Ordering : DR ERROL CORBIN M.D. Admission #: [id number] Family : DR FLORINDA FLOWERS M.D. Order #: [id number] CLICK HERE TO VIEW EXAM RADIOLOGY REPORT [...] uterine cancer at age 63. LOCATION: [facility] BREAST COMPOSITION: Scattered areas fibroglandular density. FINDINGS: [...] by: Edward Bobo MD on 07/02/2022 at 11:05NoCoshocton Regional Medical CenterED RATE WESTERGRENon 77-72-9278SJU RATE37 mm/hrCritically high<=30[facility]ullComment on above:Performed By: #### SEDR #### [facility] [address], [place] [address] Dr. Myrna AntonyAutomated erythrocytes count in urine sediment (number/area) Ordered By: Ryan Ortiz on 93-68-3661MJK Auto (Urine sed) [#/Area]20-49 [HPF] [facility] - CantonAutomated leukocytes count in urine sediment (number/area)Ordered By: Ryan Ortiz on 72-40-2309KHD Auto (Urine sed) [#/Area]3-4 [HPF][facility] CantonAutomated urine hyaline casts count (number/volume)Ordered By: Ryan Ortiz on 72-39-6903Bczhped casts Auto (U) [#/Vol]None seen [LPF][facility] - CantonBilirubin Test strip Ql (U)Ordered By: Ryan Ortiz on 84-88-7165Izfliooyl Ql (U)NegativeNegative [facility] CantonCast typing in urine sediment by light microscopyOrdered By: Ryan Ortiz on 30-37-0396Qjqrp LM Nom (Urine sed)None seen [LPF]None SeenSelect Medical Specialty Hospital - CantonColor Auto (U)Ordered By: Ryan Ortiz on 33-86-3299Cymnh (U)Dark yellowYellowSelect Medical Specialty Hospital - CantonCreatinine and Glomerular filtration rate.predicted panel (S/P/Bld) Ordered By: Ryan Ortiz on 84-48-7144Mycudannyf [Mass/Vol]1.02 mg/dL0.44-1.03 [facility] - CantonErythrocyte sedimentation rate by Photometric methodOrdered By: Ryan Ortiz on 17-94-4736AYH Photometric method (Bld) [Velocity]29 mm/hr0-29[facility] CantonEstimated glomerular filtration rate (GFR) non- AmericanOrdered By: Ryan Ortiz on 99-07-6144DAH/1.73 sq M.predicted among non-blacks MDRD (S/P/Bld) [Vol rate/Area]54 mL/MinSelect Medical Specialty Hospital - CantonKetones Auto test strip (U) [Mass/Vol]Ordered By: Ryan Ortiz on 47-70-7436Ipbsjay (U) [Mass/Vol]Trace NegativeSelect Medical Specialty Hospital - CantonMucus LM Ql (Urine sed)Ordered By: Ryan Ortiz on 71-38-1261Jmron Ql (Urine sed)2+ [LPF][facility] - CantonNitrite Test strip Ql (U)Ordered By: Ryan Ortiz on 03-19-2022 Nitrite Ql (U)NegativeNegMercy Health St. Anne HospitalNo Panel InformationOrdered By: Ryan Ortiz on 30-02-6869Daqyldfdl GFR ()> 60 mL/MinSelect Medical Specialty Hospital - CantonComment on above:GFR estimated reference range: According to KDOQI guidelines, <60 ml/min/1.73m2 is sufficient todiagnose a patient with chronic kidney disease.Pharmacy Creatinine Clearance (ChemN/[facility] HospitalProtein Auto test strip (U) [Mass/Vol]Ordered By: Ryan Ortiz on 11-70-8954Wjbwekd (U) [Mass/Vol]100 mg/dLNegSelect Medical Specialty Hospital - Columbuserum or plasma C reactive protein measurement (mass/volume)Ordered By: Ryan Ortiz on 38-95-9008OQN [Mass/Vol] 0.9 mg/dL0.0-1.0[facility] Pointe Hospitalerum or plasma urea nitrogen measurement (mass/volume)Ordered By: Ryan Ortiz on 75-12-1529Ygdp nitrogen [Mass/Vol]28 mg/dL9-23[facility] Pointe Hospitalpecific gravity Auto test strip (U) [Rel density]Ordered By: Ryan Ortiz on 79-25-3480Clghfkni gravity (U) [Rel density]1.0261.001-1.030[facility] Squamous epithelial cells detection in urine sediment by light microscopyOrdered By: Ryan Ortiz on 11-86-9959Jtblzcnaqu cells.squamous LM Ql (Urine sed)3-4 [HPF][facility] - CantonUrine bacteria detection by automated methodOrdered By: Ryan Ortiz on 89-23-3655Hetkqmue Auto Ql (U)None seenNone SeenSelect Medical Specialty Hospital - CantonUrine clarity by refractometry automated Ordered By: Ryan Ortiz on 68-97-8246Ubgmogu Refractometry automated (U)Clear ClearSelect Medical Specialty Hospital - CantonUrine glucose measurement by automated test strip (mass/volume)Ordered By: Ryan Ortiz on 42-95-6924Eswdmcw Auto test strip (U) [Mass/Vol]Normal mg/dLNormalSelect Medical [facility]ty [facility]on Urine hemoglobin detection by automated test stripOrdered By: Ryan Adkinsrow on 91-50-4738Gomggusdcb Auto test strip Ql (U)NegativeNegativeSelect Medical Specialty Hospital - CantonUrine leukocyte esterase detection by automated test stripOrdered By: Ryan Adkinsrow on 68-93-8089Lpejlvhjg esterase Auto test strip Ql (U)1+ NegativeSelect Medical Specialty Hospital - CantonUrine sediment renal epithelial cell count by microscopy (number/high power field)Ordered By: Ryan Ortiz on 21-53-8987Acjsgxqyot cells.renal LM.HPF (Urine sed) [#/Area]None seen [HPF] [facility] - CantonUrobilinogen Auto test strip (U) [Mass/Vol] Ordered By: Ryan Ortiz on 77-41-8681Yjfoqczmsezh (U) [Mass/Vol]Normal mg/dL NormalSelect Medical Specialty Hospital - CantonpH Auto test strip (U)Ordered By: Ryan Ortiz on 74-88-0513bW (U)5.5 [pH]5.0-9.0[facility] - CantonCBC W Auto Differential panel (Bld)on 36-06-9716Qtutoffba (Bld) [#/Vol]0.04 10*3/uL Normal<0.11CSelect [facility] on above:Order Comment: Specimen Type: BLOOD SPECIMEN Ordering Facility: [facility] Address: [address] [place], [place] [address]Performed By: #### 55417-6 #### [facility] CLIA [id number] [address] [place] [address] 58193Adnjjkvno/100 WBC (Bld)0.4 %NormalAshtabula County Medical Center Comment on above:Order Comment: Specimen Type: BLOOD SPECIMEN Ordering Facility: [facility] Address: [address] [place], [place] [address]Performed By: #### 32872-9 #### [facility] CLIA [id number] [address] [place], [place] [address]Hqyhplzbzhpa cell count method Nom (Bld)AutoNormalCProMedica Fostoria Community HospitalComtrinity health [facility] on above:Order Comment: Specimen Type: BLOOD SPECIMEN Ordering Facility: [facility] Address: [address]Performed By: #### 91559-5 #### [facility] CLIA [id number] [address] [place] [address] 42025Hkfqebxzoqf (Bld) [#/Vol]0.14 10*3/uLNormal<0.46[facility] on above:Order Comment: Specimen Type: BLOOD SPECIMEN Ordering Facility: [facility] Address: [address] [address]Performed By: #### 70392-0 #### [facility] CLIA [id number] [address] [place] [address] 69851Jhscofecbpm/100 WBC (Bld)1.4 %NormalAshtabula County Medical Center Comment on above:Order Comment: Specimen Type: BLOOD SPECIMEN Ordering Facility: [facility] Address: [address] [place], [place] [address]Performed By: #### 99146-8 #### [facility] CLIA [id number] [address] [place] [address] 04173Xwobvhvhsqu distribution width (RBC) [Ratio]14.4 %Normal 11.5-15.0[facility] on above:Order Comment: Specimen Type: BLOOD SPECIMEN Ordering Facility: [facility] Address: [address] [place], [place] [address]Performed By: #### 69561-1 #### [facility] CLIA [id number] [address] [place] [address] 12571Tmgsroqyhx (Bld) [Volume fraction]39.7 %Hleeko08.0-46.0 [facility] on above:Order Comment: Specimen Type: BLOOD SPECIMEN Ordering Facility: [facility] Address: [address] [place], [place] [address]Performed By: #### 55526-1 #### [facility] CLIA [id number] [address] [place] [address] 32202Kwynnrcsnf (Bld) [Mass/Vol]12.7 g/mVEsyrfk32.5-15.5CSelect Medical [facility] on above:Order Comment: Specimen Type: BLOOD SPECIMEN Ordering Facility: [facility] Address: [address] [place], [place] [address]Performed By: #### 10674-7 #### [facility] CLIA [id number] [address], [place] [address]PXAVTBDW GRAN %0.3 %NormalMemorial Health System on above:Order Comment: Specimen Type: BLOOD SPECIMEN Ordering Facility: [facility] Address: [address] [place], [place] [address]Performed By: #### 78727-9 #### [facility] CLIA [id number] [address] [place] [address] 64642KYJBUPSL GRAN ABS0.03 k/uLNormal<0.10[facility] on above:Order Comment: Specimen Type: BLOOD SPECIMEN Ordering Facility: [facility] Address: [address] [place], [place] [address]Performed By: #### 49496-0 #### [facility] CLIA [id number] [address] [place] [address] 80549Tipjrpcfgfm (Bld) [#/Vol]4.34 10*3/uLHigh1.00-4.00[facility] on above:Order Comment: Specimen Type: BLOOD SPECIMEN Ordering Facility: [facility] Address: [address]Performed By: #### 64146-0 #### [facility] CLIA [id number] [address] [place] [address] 99045Afattrqfsgn/100 WBC (Bld)43.5 %NormalMemorial Health System on above:Order Comment: Specimen Type: BLOOD SPECIMEN Ordering Facility: [facility] Address: [address] [place], [place] [address]Performed By: #### 28313-2 #### [facility] CLIA [id number] [address], [place] [address]ARU (RBC) [Entitic mass]29.5 hhLhpfos95.0-34.0[facility] on above:Order Comment: Specimen Type: BLOOD SPECIMEN Ordering Facility: [facility] Address: [address] [place], [place] [address]Performed By: #### 85499-4 #### [facility] CLIA [id number] [address], [place] [address]NXEK (RBC) [Mass/Vol]32.0 g/uWLfyxkm04.5-36.0[facility] on above:Order Comment: Specimen Type: BLOOD SPECIMEN Ordering Facility: [facility] Address: [address] [place], [place] [address]Performed By: #### 83337-8 #### [facility] CLIA [id number] [address] [place] [address] 15355BMU (RBC) [Entitic vol]92.1 wJSzklab30.0-100.0[facility] on above:Order Comment: Specimen Type: BLOOD SPECIMEN Ordering Facility: [facility] Address: [address] [place], [place] [address]Performed By: #### 80789-6 #### [facility] CLIA [id number] [address] [place] [address] 85691Cbxzcdbdm (Bld) [#/Vol]0.78 10*3/uLNormal<0.87[facility] on above:Order Comment: Specimen Type: BLOOD SPECIMEN Ordering Facility: [facility] Address: [address] [place], [place] [address]Performed By: #### 61850-4 #### [facility] CLIA [id number] [address] [place] [address] 26202Awlzxwolw/100 WBC (Bld)7.8 %NormalAshtabula County Medical Center Comment on above:Order Comment: Specimen Type: BLOOD SPECIMEN Ordering Facility: [facility] Address: [address] [place], [place] [address]Performed By: #### 54345-4 #### [facility] CLIA [id number] [address] [place] [address] 94248Izfxwuqaidt (Bld) [#/Vol]4.64 10*3/uLNormal1.45-7.50[facility] on above:Order Comment: Specimen Type: BLOOD SPECIMEN Ordering Facility: [facility] Address: [address] [place], [place] [address]Performed By: #### 54660-2 #### [facility] CLIA [id number] [address] [place] [address] 19678Bzgzymtizvq/100 WBC (Bld)46.6 %NormalMemorial Health System on above:Order Comment: Specimen Type: BLOOD SPECIMEN Ordering Facility: [facility] Address: [address] [place], [place] [address]Performed By: #### 58912-2 #### [facility] CLIA [id number] [address] [place] [address] 94779Qrmgtbxzu RBC (Bld) [#/Vol]10*3/uLNormal<0.01[facility] on above:Order Comment: Specimen Type: BLOOD SPECIMEN Ordering Facility: [facility] Address: [address] [place], [place] [address]Performed By: #### 44972-8 #### [facility] CLIA [id number] [address] [place] [address] 60[address]Gpkwczdls RBC/100 WBC (Bld) [Ratio]0.0 /100 WBCNormalCSelect Medical [facility] Hospital on above:Order Comment: Specimen Type: BLOOD SPECIMEN Ordering Facility: [facility] Address: [address] [place], [place] [address]Performed By: #### 78147-1 #### [facility] CLIA [id number] [address], [place] [address]Euqrrbqu mean volume (Bld) [Entitic vol]9.2 fLNormal9.0-12.7 [facility] on above:Order Comment: Specimen Type: BLOOD SPECIMEN Ordering Facility: [facility] Address: [address] [place], [place] [address]Performed By: #### 22827-8 #### [facility] CLIA [id number] [address], [place] [address]Ilchcwibh (Bld) [#/Vol]301 10*3/kTRicaid609-395HhwqpjxplMemorial Health System on above:Order Comment: Specimen Type: BLOOD SPECIMEN Ordering Facility: [facility] Address: [address] [place], [place] [address]Performed By: #### 85655-3 #### [facility] CLIA [id number] [address] [place] [address] 959[address]RBL (Bld) [#/Vol]4.31 10*6/uLNormal3.90-5.20[facility] on above:Order Comment: Specimen Type: BLOOD SPECIMEN Ordering Facility: [facility] Address: [address] [place], [place] [address]Performed By: #### 57504-8 #### [facility] CLIA [id number] [address], [place] [address]KPG (Bld) [#/Vol]9.97 10*3/uLNormal3.70-11.00[facility] on above:Order Comment: Specimen Type: BLOOD SPECIMEN Ordering Facility: [facility] Address: [address] [place], [place] [address]Performed By: #### 73809-8 #### [facility] CLIA [id number] [address], [place] [address]JKOYCGlf 70-45-5436MGITQWBrgcq (SP) Office ([place]) UZMA RAMIREZ ([id number]) 1955 F Date Time Provider Department 02/15/22 [...] Normal RADIOLOGY/OTHER STUDIES: 06/28/2021 Bilateral screening [facility] No significant suspicious findings in the right breast or left breast. Routine mammogram in 12 months recommended. 02/28/2021 Bone density DEXA ([facility]) Osteoporosis ASSESSMENT/PLAN: 1. Malignant neoplasm of left breast in female, estrogen receptor positive (HCC) (more content not included)...NormalAshtabula County Medical Center Comprehensive metabolic 2000 panelon 56-37-4939Otoalyb [Mass/Vol]4.5 g/dLNormal 3.9-4.9CSelect [facility] on above:Order Comment: Specimen Type: BLOOD SPECIMEN Ordering Facility: [facility] Address: [address] [place], [place] [address]Performed By: #### 65225-5 #### [facility] CLIA [id number] [address] [place] [address] 28163UES [Catalytic activity/Vol]82 U/SKeytjp41-787GqxvgnkvuMemorial Health System on above:Order Comment: Specimen Type: BLOOD SPECIMEN Ordering Facility: [facility] Address: [address] [place], [place] [address]Performed By: #### 61158-5 #### [facility] CLIA [id number] [address], [place] [address]BXE [Catalytic activity/Vol]29 U/LNormal7-38[facility] on above:Order Comment: Specimen Type: BLOOD SPECIMEN Ordering Facility: [facility] Address: [address] [address]Performed By: #### 22817-4 #### [facility] CLIA [id number] [address] [place] [address] 54692Jvygj gap [Moles/Vol]9 mmol/LNormal9-18[facility] on above:Order Comment: Specimen Type: BLOOD SPECIMEN Ordering Facility: [facility] Address: [address] [place], [place] [address]Performed By: #### 41698-1 #### [facility] CLIA [id number] [address], [place] [address]TYM [Catalytic activity/Vol]28 U/GQjymgq52-64HxgcozvscMemorial Health System on above:Order Comment: Specimen Type: BLOOD SPECIMEN Ordering Facility: [facility] Address: [address] [place], [place] [address]Performed By: #### 18825-2 #### [facility] CLIA [id number] [address] [place] [address] 48683Zmsigadib [Mass/Vol]1.1 mg/dLNormal0.2-1.3CSelect [facility] on above:Order Comment: Specimen Type: BLOOD SPECIMEN Ordering Facility: [facility] Address: [address]Performed By: #### 49398-3 #### [facility] CLIA [id number] [address] [place] [address] 79[address]Ngsuqrh [Mass/Vol]9.7 mg/dLNormal8.5-10.2CSelect [facility] on above:Order Comment: Specimen Type: BLOOD SPECIMEN Ordering Facility: [facility] Address: [address]Performed By: #### 94569-5 #### [facility] CLIA [id number] [address] [place] [address] 28266Djtqlcus [Moles/Vol]103 mmol/GQjpbws07-212DknxcznbhMemorial Health System on above:Order Comment: Specimen Type: BLOOD SPECIMEN Ordering Facility: [facility] Address: [address] [place], [place] [address]Performed By: #### 89053-6 #### [facility] CLIA [id number] [address], [place] [address]DM7 [Moles/Vol]22 mmol/ROadngq82-81ShvdwbgtwAshtabula County Medical Center Comment on above:Order Comment: Specimen Type: BLOOD SPECIMEN Ordering Facility: [facility] Address: [address] [place], [place] [address]Performed By: #### 87898-4 #### [facility] CLIA [id number] [address] [place] [address] 45820Psfwhvezgy [Mass/Vol]0.82 mg/dLNormal0.58-0.96As[facility]abula County Medical CenterComment on above:Order Comment: Specimen Type: BLOOD SPECIMEN Ordering Facility: [facility] Address: [address] [place], [place] [address]Performed By: #### 22202-3 #### [facility] CLIA [id number] [address] [place] [address] 44756OEXVGUCUG GLOMERULAR FILTRATION RATE79 mL/min/1.73m???Normal >=60Ashtabula County Medical CenterComment on above:Order Comment: Specimen Type: BLOOD SPECIMEN Ordering Facility: [facility] Address: [address] [place], [place] [address]Result Comment: Estimated Glomerular Filtration Rate (eGFR) is [...] not accurately reflect actual GFR.Performed By: #### 16961-1 #### [facility] CLIA [id number] [address] [place] [address] 56991Twbfato [Mass/Vol]128 mg/wTWkas89-38MaacrjpxuAshtabula County Medical Center Comment on above:Order Comment: Specimen Type: BLOOD SPECIMEN Ordering Facility: [facility] Address: [address] [place], [place] [address]Result Comment: The [place] Diabetes Association (ADA) provides guidance for cutoff [...] Standards of Medical Care in Diabetes 2016, [place] Diabetes Association. Diabetes Care. 2016.39(Suppl 1).Performed By: #### 71441-0 #### [facility] CLIA [id number] [address] [place] [address] 399[address]Aysvvuzwf [Moles/Vol]3.9 mmol/LNormal3.7-5.1CSelect Medical [facility] on above:Order Comment: Specimen Type: BLOOD SPECIMEN Ordering Facility: [facility] Address: [address] [place], [place] [address]Performed By: #### 93917-3 #### [facility] CLIA [id number] [address] [place] [address]44[address]Hettepe [Mass/Vol]7.1 g/dLNormal6.3-8.0[facility] on above:Order Comment: Specimen Type: BLOOD SPECIMEN Ordering Facility: [facility] Address: [address] [place], [place] [address]Performed By: #### 16737-8 #### [facility] CLIA [id number] [address] [place] [address] 549[address]Tswtbc [Moles/Vol]134 mmol/LKkl477-413HxixmyaziMemorial Health System on above:Order Comment: Specimen Type: BLOOD SPECIMEN Ordering Facility: [facility] Address: [address] [address]Performed By: #### 44763-7 #### [facility] CLIA [id number] [address], [place] [address]Tdhe nitrogen [Mass/Vol]23 mg/dLHigh7-21[facility] on above:Order Comment: Specimen Type: BLOOD SPECIMEN Ordering Facility: [facility] Address: [place] [address]Lpxrfncup By: #### 46276-8 #### [facility] CLIA [id number] [address], [place] [address]ZYMMxg 03-26-2582VEQPPqgxzbcxz ([place]) UZMA RAMIREZ ([id number]) 1955 F Date Time Provider Department 02/06/22 [...] Fully Assessed Reason for Visit: Lab Orders [6498] Primary Visit Diagnosis:Malignant neoplasm of upper-outer quadrant of left breast in female, estrogen receptor positive (HCC) [C50.412, Z17.0] Order(s):CBC + DIFF [SQCBCDIF] Order #: [id number] FUTURE COMP METABOLIC PANEL [SQCMP] Order #: [id number] FUTURE Prescriptions as of 02/07/2022 - rosuvastatin [...] [Z96.649] Encounter Status:Closed by LILIA CASTRO on 02/07/22NoThe [facility] - PROTHROMBIN TIME WITH INRon 09-84-5482FOQ Coag (PPP) [Relative time]0.9 {INR}NormalNorthern Tennessee Medical SpecialistComment on above:Order Comment: [facility] performed at: [employer], [employer] [facility], [address] [facility], [address] [place] [address], [phone], Angiographer: Mariano Paul MD [facility] Collection Date/Time: [facility] Results Received Date/Time: [facility] Reported Date/Time: FASTING: NOResult Comment: Reference Range 0.9-1.1 Moderate-intensity Warfarin Therapy 2.0-3.0 Higher-intensity Warfarin Therapy 3.0-4.0Performed By: #### 763X, 26F, %SBNOCULI, 3020X #### [facility] Default [address] [place], [place] [address]GN Coag (PPP) [Time]9.3 sNormal9.0-11.5Northern [place] Medical SpecialistComment on above:Order Comment: [facility] performed at: [employer], [employer] [facility], [address] , [address] [place] [address], [place], [phone], Angiographer: Mariano Paul MD [facility] Collection Date/Time: [facility] Results Received Date/Time: [facility] Reported Date/Time: FASTING: NOResult Comment: For additional information, please refer to [email or web address].Symptom.ly/faq/[email or web address] (This link is being provided for informational/ educational purposes only.)Performed By: #### 763X, 26F, %SBNOCULI, 3020X #### [facility] Default [address] [place], [place] [address]T - PTTon 27-72-2667FFXPMGQ THROMBOPLASTIN TIME, ZCLLBJADO89 sec Zogwcb01-11TkgivnzvMer[address] Health St[address] Elizabeth Boardman HospitalComment on above:Order Comment: [facility] performed at: [employer] [facility], [address] [place] [address], [address] [place] [address], [phone], Angiographer: Mariano Paul MD [facility] Date/Time: [facility] Results Received Date/Time: [facility] Reported Date/Time: FASTING: NOResult Comment: This test has not been validated for monitoring unfractionated heparin therapy. For testing that is validated for this type of therapy, please refer to the Heparin Anti-Xa assay (test code 45009). For additional information, please refer to http://Cirqle.nl.Eduquia/faq/JJN515 (This link is being provided for informational/educational purposes only.)Performed By: #### 763X, 26F, %SBNOCULI, 3020X #### [facility] Default [address] [place], [place] [address]A - UR CULT REFLEXon 56-27-7650ZGMABNHIV URINE CULTURESEE NOTE NormalOhio State University Wexner Medical CenterComment on above:Order Comment: [facility] Testing performed at: [employer] [facility], [address] [place] [address], [address] [place] [address], [phone], Angiographer: Mariano Paul MD [facility] Collection Date/Time: [id number] [facility] Results Received Date/Time: [id number] [facility] Reported Date/Time: FASTING: NOResult Comment: NO CULTURE INDICATEDPerformed By: #### 763X, 26F, %SBNOCULI, 3020X #### [facility] Default [address] [place], [place] [address]O - URINALYSIS,COMPLETE,WITH REFLEX TO CULTUREon 12-21-2021 Appearance (U)CLEARNormalCLEARBellevue Hospital SpecialistComment on above: Order Comment: [facility] Testing performed at: [employer], [employer] [facility], [address] , [address] [place] [address], [address] [place] [address], Angiographer: Mariano Paul MD [facility] Collection Date/Time: [facility] Results Received Date/Time: [facility] Reported Date/Time: FASTING: NOPerformed By: #### 763X, 26F, %SBNOCULI, 3020X #### [facility] [address] [place], [place] [address]AJXJFEIPHYYO SEENNormalNONE SEENBellevue Hospital Specialist Comment on above:Order Comment: [facility] Testing performed at: [employer] [facility], [address] , [address] [place] [address], [address] [place] [address], Angiographer: Mariano Paul MD [facility] Collection Date/Time: [facility] Results Received Date/Time: [facility] Reported Date/Time: FASTING: NOPerformed By: #### 763X, 26F, %SBNOCULI, 3020X #### [facility] [address] [place], [place] [address]Zutgddmze Ql (U)NegativeNormalNEGATIVEBellevue Hospital SpecialistComment on above:Order Comment: [facility] Testing performed at: [employer] [facility], [address] , [address] [place] [address], [address] [place] [address], Angiographer: Mariano Paul MD [facility] Collection Date/Time: [facility] Results Received Date/Time: [facility] Reported Date/Time: FASTING: NOPerformed By: #### 763X, 26F, %SBNOCULI, 3020X #### [facility] Default [address] [place], [place] [address]Oemwb (U)DARK YELLOWNormalYELLOWBellevue Hospital Specialist Comment on above:Order Comment: [facility] Testing performed at: [employer], [employer] [facility], [address] [facility], [address] [place] [address], [address] [place] [address], Angiographer: Mariano Paul MD [facility] Collection Date/Time: [facility] Results Received Date/Time: [facility] Reported Date/Time: FASTING: NOPerformed By: #### 763X, 26F, %SBNOCULI, 3020X #### [facility] Default [address] [place], [place] [address]Eflpunn Ql (U)NegativeNormalNEGATIVEBellevue Hospital SpecialistComment on above:Order Comment: [facility] Testing performed at: [employer], [employer] [facility], [address] [facility], [address] [place] [address], [address] [place] [address], Angiographer: Mariano Paul MD [facility] Collection Date/Time: [facility] Results Received Date/Time: [facility] Reported Date/Time: FASTING: NOPerformed By: #### 763X, 26F, %SBNOCULI, 3020X #### [facility] [address] [place], [place] [address]KLEIUFF CASTNONE SEENNormalNONE SEENBellevue Hospital SpecialistComment on above:Order Comment: [facility] Testing performed at: [employer], [employer] [facility], [address] [facility], [address] [place] [address], [address] [place] [address], Angiographer: Mariano Paul MD [facility] Collection Date/Time: [facility] Results Received Date/Time: [facility] Reported Date/Time: FASTING: NOPerformed By: #### 763X, 26F, %SBNOCULI, 3020X #### [facility] [address] [place], [place] [address]Nntstws Ql (U)TRACEAbnormalNEGMemorial HospitalComtrinity health shel[facility] on above:Order Comment: [facility] Testing performed at: [employer], [email or web address] [facility], [address] , [address] [place] [address], [address] [place] [address], Angiographer: Mariano Paul MD [facility] Collection Date/Time: [facility] Results Received Date/Time: [facility] Reported Date/Time: FASTING: NOPerformed By: #### 763X, 26F, %SBNOCULI, 3020X #### [facility] [address] [place], [place] [address]Zxszamqqe esterase Test strip Ql (U)NegativeNormalNEGSelect Medical Specialty Hospital - TrumbullComment on above:Order Comment: [facility] Testing performed at: [employer], [employer] [facility], [address] , [address] [place] [address], [address] [place] [address], Angiographer: Mariano Paul MD [facility] Collection Date/Time: [facility] Results Received Date/Time: [facility] Reported Date/Time: FASTING: NOPerformed By: #### 763X, 26F, %SBNOCULI, 3020X #### [facility] [address] [place], [place] [address]Fvpycir Ql (U)NegativeNormalNEGSelect Medical Specialty Hospital [facility] SpecialistComment on above:Order Comment: [facility] Testing performed at: [employer], [employer] [facility], [address] , [address] [place] [address], [address] [place] [address], Angiographer: Mariano Paul MD [facility] Collection Date/Time: [facility] Results Received Date/Time: [facility] Reported Date/Time: FASTING: NOPerformed By: #### 763X, 26F, %SBNOCULI, 3020X #### [facility] [address] [place], [place] [address]IBFEBH BLOODNegativeNormalNEGATIVENoBlanchard Valley Health System SpecialistComment on above:Order Comment: [facility] Testing performed at: [employer], [email or web address] [facility], [address] , [address] [place] [address], [address] [place] [address], Angiographer: Mariano Paul MD [facility] Collection Date/Time: [facility] Results Received Date/Time: [facility] Reported Date/Time: FASTING: NOPerformed By: #### 763X, 26F, %SBNOCULI, 3020X #### [facility] [address] [place], [place] [address]pB (U)[pH]Normal5.0-8.0NortherKindred Hospital Lima SpecialistComment on above:Order Comment: [facility] Testing performed at: [employer], [employer] [facility], [address] , [address] [place] [address], [address] [place] [address], Angiographer: Mariano Paul MD [facility] Collection Date/Time: [facility] Results Received Date/Time: [facility] Reported Date/Time: FASTING: NOPerformed By: #### 763X, 26F, %SBNOCULI, 3020X #### [facility] Default [address] [place], [place] [address]Otnaexj Ql (U)TRACEAbnormalNEGATIVENortencompass health rehabilitation hospital of east valleyn [facility] [place], [facility] SpecialistComment on above:Order Comment: [facility] Testing performed at: [employer], [employer] [facility], [address] , [address] [place] [address], [address] [place] [address], Angiographer: Mariano Paul MD [facility] Collection Date/Time: [facility] Results Received Date/Time: [facility] Reported Date/Time: FASTING: NOPerformed By: #### 763X, 26F, %SBNOCULI, 3020X #### [facility] [address] [place], [place] [address]SDTJTUW SEENNormal< OR = 2[facility] [place] SpecialistComment on above:Order Comment: [facility] Testing performed at: [employer], [employer] [facility], [address] [place] [address], [address] [place] [address], [address] [place] [address], Angiographer: Mariano Paul MD [facility] Collection Date/Time: [facility] Results Received Date/Time: [facility] Reported Date/Time: FASTING: NOPerformed By: #### 763X, 26F, %SBNOCULI, 3020X #### [facility] Default [address] [place], [place] [address]Rdurpslb gravity (U) [Rel density]1.812Bhpwaq6.001-1.035[facility] [place] SpecialistComment on above:Order Comment: [facility] Testing performed at: [employer], [employer] [facility], [address] [place] [address], [address] [place] [address], [address] [place] [address], Angiographer: Mariano Paul MD [facility] Collection Date/Time: [facility] Results Received Date/Time: [facility] Reported Date/Time: FASTING: NOPerformed By: #### 763X, 26F, %SBNOCULI, 3020X #### [facility] Default [address] [place], [place] [address]XCXCNBWR EPITHELIAL CELLSNONE SEENNormal< OR = 5[facility] [place] SpecialistComment on above:Order Comment: [facility] Testing performed at: [employer], [employer] [facility], [address] [place] [address], [address] [place] [address], [address] [place] [address], Angiographer: Mariano Paul MD [facility] Collection Date/Time: [facility] Results Received Date/Time: [facility] Reported Date/Time: FASTING: NOPerformed By: #### 763X, 26F, %SBNOCULI, 3020X #### [facility] [address] [place], [place] [address]MXNCZOY SEENNormal< OR = 5[facility] [place] [facility] SpecialistComment on above:Order Comment: [facility] Testing performed at: [employer], [facility], [address] [facility], [address] [facility], [place], [address], Angiographer: Mariano Paul MD [facility] Collection Date/Time: [facility] Results Received Date/Time: [facility] Reported Date/Time: FASTING: NOPerformed By: #### 763X, 26F, %SBNOCULI, 3020X #### [facility] [address] [place], [place] [address]Qitbgkxy Blood Count with Auto Diffon 90-12-0260Qdnfkjfhc (Bld) [#/Vol]0.03 10*3/uLNormal0.00-0.20[facility] [place] [facility] SpecialistComment on above:Performed By: #### CBCAD, CMP #### [facility] [address] [place], [place] [id number]/100 WBC (Bld)0.3 %NormalNortGrant Hospital Medical SpecialistComment on above:Performed By: #### CBCAD, CMP #### [facility] [address] [place], [place] [id number] (Bld) [#/Vol]0.02 10*3/uLNormal0.02-0.50[facility] [place] [facility] SpecialistComment on above:Performed By: #### CBCAD, CMP #### [facility] [address] [place], [place] [id number]/100 WBC (Bld)0.2 %NormalNortGrant Hospital Medical SpecialistComment on above:Performed By: #### CBCAD, CMP #### [facility] [address] [place], [place] [id number] distribution width (RBC) [Ratio]14.3 %Normal 11.0-15.0Nortencompass health rehabilitation hospital of east valleyn [place] [facility] SpecialistComment on above:Performed By: #### CBCAD, CMP #### [facility] [address] [place], [place] [id number] (Bld) [Volume fraction]46.9 %Eszzvw09.0-47.0 [facility] SpecialistComment on above:Performed By: #### CBCAD, CMP #### [facility] [address] [place], [place] [id number] (Bld) [Mass/Vol]14.3 g/nNYzpsth93.6-15.5NoBlanchard Valley Health System SpecialistComment on above:Performed By: #### CBCAD, CMP #### [facility] [address] [place], [place] [id number] (Bld) [#/Vol]2.2 10*3/uLNormal0.9-3.9NoBlanchard Valley Health System SpecialistComment on above:Performed By: #### CBCAD, CMP #### [facility] [address] [place], [place] [id number]/100 WBC (Bld)19.7 %NormalBellevue Hospital SpecialistComment on above:Performed By: #### CBCAD, CMP #### [facility] [address] [place], [place] [id number] (RBC) [Entitic mass]30.0 qqEzpfnh46.0-33.0[facility] SpecialistComment on above:Performed By: #### CBCAD, CMP #### [facility] [address] [place], [place] [id number] (RBC) [Mass/Vol]30.5 g/dLLow32.0-36.0[facility] SpecialistComment on above:Performed By: #### CBCAD, CMP #### [facility] [address] [place], [place] [id number] (RBC) [Entitic vol]98 pKPxjvcu64-934Jwegwemw [place] [facility] SpecialistComment on above:Performed By: #### CBCAD, CMP #### [facility] [address] [place], [place] [id number] (Bld) [#/Vol]0.5 10*3/uLNormal0.2-0.9[facility] [place] [facility] SpecialistComment on above:Performed By: #### CBCAD, CMP #### [facility] [address] [place], [place] [id number]/100 WBC (Bld)4.3 %NormalBellevue Hospital SpecialistComment on above:Performed By: #### CBCAD, CMP #### [facility] [address] [place], [place] [id number] (Bld) [#/Vol]8.3 10*3/uLHigh1.5-7.8NortCleveland [facility] SpecialistComment on above:Performed By: #### CBCAD, CMP #### [facility] [address] [place], [place] [id number]/100 WBC (Bld)75.2 %NormalNoBlanchard Valley Health System SpecialistComment on above:Performed By: #### CBCAD, CMP #### [facility] [address] [place], [place] [id number] mean volume (Bld) [Entitic vol]10.80 fLNormal 7.50-12.50NoBlanchard Valley Health System SpecialistComment on above:Performed By: #### CBCAD, CMP #### [facility] [address] [place], [place] [id number] (Bld) [#/Vol]303 10*3/pWTnafgn661-062Gztxkhkl [place] [facility] SpecialistComment on above:Performed By: #### CBCAD, CMP #### [facility] [address] [place], [place] [id number] (Bld) [#/Vol]4.77 10*6/uLNormal3.90-5.20NoBlanchard Valley Health System SpecialistComment on above:Performed By: #### CBCAD, CMP #### [facility] [address] [place], [place] [id number]-CO01.3 zXRoae54.0-50.0NoBlanchard Valley Health System Specialist Comment on above:Performed By: #### CBCAD, CMP #### [facility] [address] [place], [place] [id number] (Bld) [#/Vol]11.1 10*3/uLHigh3.8-11.0NoBlanchard Valley Health System SpecialistComment on above:Performed By: #### BRIDGET, CMP #### [facility] [address] [place], [place] [id number] Metabolic Panelon 08-94-1933Syddbda [Mass/Vol] 5.0 g/dLNormal3.6-5.1[facility] [place] SpecialistComment on above:Performed By: #### CBCMAINE, CMP #### [facility] [address] [place], [place] [id number]/Globulin [Mass ratio]1.9 {ratio}Normal1.0-2.5NoBlanchard Valley Health System SpecialistComment on above:Performed By: #### CBCMAINE, CMP #### [facility] [address] [place], [place] [id number] [Catalytic activity/Vol]68 U/WPcdxph43-134Gkdwvylb [place] [facility] SpecialistComment on above:Performed By: #### CBCMAINE, CMP #### [facility] [address] [place], [place] [id number] [Catalytic activity/Vol]112 U/LHigh6-33NoBlanchard Valley Health System SpecialistComment on above:Result Comment: 10/04/2021 Female reference range changed.Performed By: #### CBCMAINE, CMP #### [facility] [address] [place], [place] [id number] gap [Moles/Vol]21 mmol/OPpiv35-34YvpoaspyBlanchard Valley Health System SpecialistComment on above:Result Comment: Effective 11/09/2019 reference range changed.Performed By: #### CBCMAINE, CMP #### [facility] [address] [place], [place] [id number] [Catalytic activity/Vol]84 U/LHigh9-34NoBlanchard Valley Health System SpecialistComment on above:Performed By: #### CBCAD, CMP #### [facility] [address] [place], [place] [id number] [Mass/Vol]1.12 mg/dLNormal0.30-1.20[facility] [place] [facility] SpecialistComment on above:Performed By: #### CBCAD, CMP #### [facility] [address] [place], [place] [id number]/CREA30 RatioHigh6-22Nortencompass health rehabilitation hospital of east valleyn [place] [employer] Comment on above:Performed By: #### CBCAD, CMP #### [facility] [address] [place], [place] [id number] [Mass/Vol]10.0 mg/dLNormal8.6-10.2[facility] [place] [facility] SpecialistComment on above:Performed By: #### CBCAD, CMP #### [facility] [address] [place], [place] [id number] [Moles/Vol]101 mmol/DFywruj69-879Kevfzqay [facility] [place] SpecialistComment on above:Performed By: #### CBCAD, CMP #### [facility] [address] [place], [place] [id number] [Moles/Vol]19 mmol/TBsc09-31Hafipmio [place] [facility] SpecialistComment on above:Performed By: #### CBCAD, CMP #### [facility] [address] [place], [place] [id number] [Mass/Vol]0.8 mg/dLNormal0.6-1.4Nortencompass health rehabilitation hospital of east valleyn [place] [facility] SpecialistComment on above:Performed By: #### CBCAD, CMP #### [facility] [address] [place], [place] [id number] mL/min/1.57q2Zkguzk>60NortGrant Hospital Medical SpecialistComment on above:Performed By: #### CBCAD, CMP #### [facility] [address] [place], [place] [id number] mL/min/1.17d0Mbuhma>60NortherOhio State Health System Medical SpecialistComment on above:Performed By: #### CBCAD, CMP #### [facility] [address] [place], [place] [id number] (S) [Mass/Vol]2.6 g/dLNormal1.9-3.7NoBlanchard Valley Health System SpecialistComment on above:Performed By: #### BRIDGET, CMP #### [facility] [address] [place], [place] [id number] [Mass/Vol]154 mg/kCUvht91-80Xpknffdi [place] [facility] SpecialistComment on above:Result Comment: For FASTING Glucose --- ADA reference ranges: Normal 65-99 mg/dl Prediabetes 100-125 Diabetes >/= 126Performed By: #### BRIDGET, CMP #### [facility] [address] [place], [place] [id number] [Moles/Vol]4.5 mmol/LNormal3.5-5.5NoBlanchard Valley Health System SpecialistComment on above:Performed By: #### BRIDGET, CMP #### [facility] [address] [place], [place] [id number] [Mass/Vol]7.6 g/dLNormal6.1-8.1[facility] [place] SpecialistComment on above:Performed By: #### BRIDGET, CMP #### [facility] [address] [place], [place] [id number] [Moles/Vol]137 mmol/GAwcilr080-532Plskgfig [place] [facility] SpecialistComment on above:Performed By: #### BRIDGET, CMP #### [facility] [address] [place], [place] [id number] nitrogen [Mass/Vol]24 mg/dLNormal7-25NoBlanchard Valley Health System SpecialistComment on above:Performed By: #### BRIDGET, CMP #### [facility] [address] [place], [place] [id number] 50-22-6721GWJCSuxicpweq (HEMASA) UZMA RAMIREZ ([id number]) 1955 F Date Time Provider Department 03/02/21 [...] [Z96.649] Encounter Status:Closed by HAILEY ARJUN on 03/02/21[facility]CNJame [id number] (NCCAP) UZMA RAMIREZ ([id number]) 1955 F Date Time Provider Department 02/21/21 ERROL CORBIN During your visit today, we recorded the following information about you: Caterina Weston [facility] 02/21/2021 9:58 AM Signed Pt is scheduled at [facility] for bone density and yayo screen mammogram. Dr Corbin, can you please review and place orders in [facility] to be faxed? Thanks! Katia Rojas RN 02/21/2021 11:17 AM Signed Orders pended. Please review and approve. Thanks, ADELSO Moore 02/21/2021 12:33 PM Signed Signed. Lilia Castro APRN.SOREN Villar [facility] 02/21/2021 12:54 PM Signed Faxed to [facility] Allergies As of Date: 02/21/2021 Noted [...] without current pathological fracture [M81.0] Order(s):DXA-AXIAL SKELETON [[id number]] Order #: [id number] FUTURE JOHANN SCREENING [[id number]] Order #: [id number] FUTURE Prescriptions as of 02/21/2021 Sig: ROSUVASTATIN [...] [Z96.649] Encounter Status:Closed by CATERINA MADERA on 04/14/21No[facility] Vital Signs Date TimeVital SignValuePerforming YcjscfqukXjltfhcc37-38-7219 11:21-0400 Diastolic blood hocatvqy54 mm[Hg]Florinda Flowers MD Work Phone: [phone]10-22-2025 11:21-0400 Heart rate55 /minFlorinda Flowers MD Work Phone: 1([phone])[address]10-22-2025 11:21-0400 Systolic blood ymoiogpn647 mm[Hg]Florinda Flowers MD Work Phone: [phone])[address]10-22-2025 11:07-0400 Body pjypek480.64 cmFlorinda Flowers MD Work Phone: [phone])[address]10-22-2025 11:07-0400 Body mass index (BMI) [Ratio]30.2 kg/d0GluquhFlorinda Flowers MD Work Phone: [phone]10-22-2025 11:07-0400 Body uydxzg24.82 kgFlorinda Flowers MD Work Phone: [phone]07-02-2025 10:46-0400 Body imwces792.64 cmFlorinda Flowers MD Work Phone: [phone])[address]07-02-2025 10:46-0400 Body mass index (BMI) [Ratio]30.4 kg/i5GcjgbxFlorinda Flowers MD Work Phone: [facility]07-02-2025 10:46-0400 Body reycbt57.72 kgFlorinda Flowers MD Work Phone: [facility]07-02-2025 10:46-0400 Diastolic blood dgzolfpt77 mm[Hg]Florinda Flowers MD Work Phone: [facility]07-02-2025 10:46-0400 Heart rate69 /minFlorinda Flowers MD Work Phone: [facility]07-02-2025 10:46-0400 Systolic blood wbtwcowi903 mm[Hg]Florinda Flowers MD Work Phone: [phone]04-15-2025 11:14-0400 Body rwxecb997.6 cmAngsowmya Julir PRODUCT SAFETY SPECIALIST Work Phone: [facility] HospitalBsdbwziyog05-46-4807 11:14-0400Body mass index (BMI) [Ratio]30.51 kg/l9Myemjk Gillmor PRODUCT SAFETY SPECIALIST Work Phone: [facility] HospitalYlitnbexwd90-18-3789 11:14-0400Body zaghjt64.73 kgAngela Еленаmor PRODUCT SAFETY SPECIALIST Work Phone: [facility] HospitalTbkwkuhazm01-27-1169 11:14-0400Diastolic blood oqbiwfae22 mm[Hg]Uzma Christiansenmor PRODUCT SAFETY SPECIALIST Work Phone: [facility] HospitalZtvbetliyw42-24-8054 11:14-0400Heart rate58 /min Uzma Еленаmor PRODUCT SAFETY SPECIALIST Work Phone: [place] [address]Ffsejtxoip40-81-5459 11:14-0400Systolic blood wdmuxexg365 mm[Hg]Uzma Еленаmor PRODUCT SAFETY SPECIALIST Work Phone: [facility] HospitalJfkihmyujd35-31-0712 11:17-0400Body ovvnxt377.6 cmNicole Brinda DO Work Phone: [facility] HospitalXxhxvcmncl80-52-6761 11:17-0400Body mass index (BMI) [Ratio]30.51 kg/h9Qvuimv Brinda DO Work Phone: noSaint [facility] SpringsSwyimfmrxl04-27-7684 11:17-040Body wkgdam94.73 kgNicemanuel Barretoner DO Work Phone: noSaint [facility] Blue SpringsJhvfcsyxjw02-74-1513 11:17-0400Diastolic blood ijqsawdw25 mm[Hg]Mc Barretoner DO Work Phone: [facility] HospitalMydtbupjqx06-08-5424 11:17-0400Heart rate53 /min Mc Brinda DO Work Phone: [place] [address]Kodfmajaco67-41-9962 11:171756MiB7% (BldA) [Mass fraction]95 %Mc Parry DO Work Phone: noSaint [facility] Hospital of Blue SpringsSqltxexrcx80-06-4984 11:17-040Systolic blood yfaxvnhm160 mm[Hg]Mc Parry DO Work Phone: [facility] HospitalVfkxiyfmrb67-98-5754 10:42-0500Body mass index (BMI) [Ratio]29.24 kg/j8DaocmojMaria L Bean APRN-WAITER/WAITRESS [employer] CLASS Work Phone: [facility]11-13-2024 10:42-0500Body .69 kgMaria L Bean APRN-WAITER/WAITRESS FIRST CLASS Work Phone: [facility]10-30-2024 09:22-0400Body vynlri592.2 cmRehana Quintanillas DO Work Phone: [facility]10-30-2024 09:22-0400Body mass index (BMI) [Ratio]29.13 kg/s1WuhzztvRehana Quintanillas DO Work Phone: [facility]10-30-2024 09:22-0400Body ayxnyz39.37 kgMiclennox Quintanillas DO Work Phone: [facility]10-30-2024 09:22-0400Diastolic blood mm[Hg]Rehana Reinoso DO Work Phone: [facility]10-30-2024 09:22-0400Heart rate 60 /minRehana Reinoso DO Work Phone: [facility]10-30-2024 09:22-0400Systolic blood ackmqhdo469 mm[Hg]Rehana Reinoso DO Work Phone: [facility]10-18-2024 10:58-0400Body nvmrco431.1 cmMD Florinda Flowers Work Phone: [phone]10-18-2024 10:58-0400 Body mass index (BMI) [Ratio]30.9 kg/m2MD Florinda Flowers Work Phone: [phone]82[facility]10-18-2024 10:58-0400 Body byyicl04.36 kgMD Florinda Flowers Work Phone: [phone]60[facility]10-18-2024 10:58-0400 Diastolic blood qosgpgjb276 mm[Hg]MD Florinda Flowers Work Phone: [phone]10-18-2024 10:58-0400 Heart rate80 /minMD Florinda Flowers Work Phone: [phone]10-18-2024 10:58-0400 Systolic blood dtdcolus848 mm[Hg]MD Florinda Flowers Work Phone: [phone]03-01-2024 11:09-0500 Body bsgehq342.6 cmMaria L Bean SOCIAL SERVICE LIAISON-WAITER/WAITRESS FIRST CLASS Work Phone: [facility]03-01-2024 11:09-0500Body mass index (BMI) [Ratio]28.57 kg/h1YrnybopMaria L Bean SOCIAL SERVICE LIAISON-WAITER/WAITRESS FIRST CLASS Work Phone: [facility]03-01-2024 11:09-0500Body ijmpxt44.29 kgMaria L Bean SOCIAL SERVICE LIAISON-WAITER/WAITRESS FIRST CLASS Work Phone: [facility]03-01-2024 11:09-0500Diastolic blood arefkgdy74 mm[Hg]Maria L Bean SOCIAL SERVICE LIAISON-WAITER/WAITRESS FIRST CLASS Work Phone: [facility] HospitalPreview Networks Rthgsm84-17-8707 11:09-0500Systolic blood mm[Hg]Maria L Bean SOCIAL SERVICE LIAISON-WAITER/WAITRESS FIRST CLASS Work Phone: [facility] Memorial HospitalPreview Networks [phone] 10:30-0400Body opsdkv793.64 cmFlorinda Flowers Other [employer] Other 08-15-2023 10:30-0400Body mass index (BMI) [Ratio] 28.73 kg/q2JzlrcvFlorinda Flowers Other [employer] Other 08-15-2023 10:30-0400Body wekscm12.74 kgFlorinda Flowers Other [employer] Other 08-15-2023 10:30-0400Diastolic blood dihvwawo55 mm[Hg] Florinda Flowers Other [employer] Other 08-15-2023 10:30-0400Systolic blood wrjcybon251 mm[Hg] Florinda Flowers Other [employer] Other 02-20-2023 10:00-0500Body coneks802.64 cmFlorinda Flowers Other [employer] Other 02-20-2023 10:00-0500Body mass index (BMI) [Ratio] 30.02 kg/n7XhcxrhFlorinda Flowers Other [employer] Other 02-20-2023 10:00-0500Body gwrzda93.37 kgFlorinda Flowers Other [employer] Other 02-20-2023 10:00-0500Diastolic blood mm[Hg] Florinda Flowers Other [employer] Other 02-20-2023 10:00-0500Systolic blood ydysvack350 mm[Hg] Florinda Flowers Other [employer] Other 11-27-2022 12:00-0500Body maedvm231.64 cmPameltianna Wyatt Other [employer] Other 11-27-2022 12:00-0500Body mass index (BMI) [Ratio] 29.53 kg/b6Dqfgak Dymond Other [employer] Other 11-27-2022 12:00-0500Body nytjolglems74.3 [degF]Elizabeth Yoselin Other [employer] Other 11-27-2022 12:00-0500Body gvnkeh27.01 kgPalogan Wyatt Other [employer] Other 11-27-2022 12:00-0500Respiratory rate18 /minElizabeth Wyatt Other [employer] Other 11-27-2022 12:00-2692IqY4% (BldA) [Mass fraction]99 % Elizabeth Francomond Other [employer] Other 10-11-2022 15:20-0400Body .64 Son Rizvi Other [employer] Other 10-11-2022 15:20-0400Body mass index (BMI) [Ratio]30.5 kg/m2Teetee Rizvi Other [employer] Other 10-11-2022 15:20-0400Body yszqrntccbm06.2 [degF]Teetee Rizvi Other [employer] Other 10-11-2022 15:20-0400Body wuuats50.73 kgTeetee Rizvi Other [employer] Other 10-11-2022 15:20-0400Diastolic blood zwkrgeaq63 mm[Hg] Teetee Rizvi Other [facility] [employer] Other 10-11-2022 15:20-0400Respiratory rate18 /minTeetee Rizvi Other [employer] Other 10-11-2022 15:20-4240ZrZ3% (BldA) [Mass fraction]96 % Teetee Rizvi Other [facility] [employer] Other 10-11-2022 15:20-0400Systolic blood ugqplslm605 mm[Hg] Teetee Rizvi Other [employer] Other 09-16-2022 13:49-0400Body nkpuzg587.64 cmFlorinda Flowers Work Phone: [phone]-Rugpo [place] [employer] [address] DO Work Phone: 1(758) 251-801509-16-2022 13:49-0400Diastolic blood makyjdkd10 mm[Hg] Florinda Flowers Work Phone: [phone]-Eaeio [place] [employer] [address] DO Work Phone: 1(642) 465-585009-16-2022 13:49-0400Heart rate66 /minFlorinda Flowers Work Phone: [phone]-Xseli [place] [employer] [address] DO Work Phone: 1([phone]) 522-907009-16-2022 13:49-0400Systolic blood krptevbc466 mm[Hg] Florinda Flowers Work Phone: [phone]-Qbhhj [facility] [address] DO Work Phone: 1(423) 850-925308-31-2022 12:06-0400Diastolic blood hzgwifgs86 mm[Hg] MD Florinda Flowers Work Phone: [facility]08-31-2022 12:06-0400 Heart rate62 /minMD Florinda Flowers Work Phone: [facility]08-31-2022 12:06-0400 Respiratory rate16 /minMD Florinda Flowers Work Phone: [phone]08-31-2022 12:06-0400 SaO2% (BldA) [Mass fraction]95 %MD Florinda Flowers Work Phone: [facility]08-31-2022 12:06-0400 Systolic blood uiaxozga870 mm[Hg]MD Florinda Flowers Work Phone: [facility]08-31-2022 09:23-0400 Body .64 cmMD Florinda Flowers Work Phone: [facility]08-31-2022 09:23-0400 Body zypfao64.72 kgMD Florinda Flowers Work Phone: [phone]08-09-2022 17:20-0400 Body wsaiwk936.64 Son Rizvi Other [employer] Other 08-09-2022 17:20-0400Body mass index (BMI) [Ratio]30.5 kg/m2Teetee Rizvi Other [facility] [employer] Other 08-09-2022 17:20-0400Body rxaerpuruhh16 [degF]Teetee Rizvi Other [employer] Other 08-09-2022 17:20-0400Body waqrsa15.73 kgTeetee Rizvi Other [employer] Other 08-09-2022 17:20-0400Diastolic blood mm[Hg] Teetee Rizvi Other [employer] Other 08-09-2022 17:20-0400Respiratory rate18 /minTeetee Rizvi Other [employer] Other 08-09-2022 17:20-2070LyY0% (BldA) [Mass fraction]97 % Teetee Rizvi Other [employer] Other 08-09-2022 17:20-0400Systolic blood mm[Hg] Teetee Rizvi Other [facility] [employer] Other Encounters Encounter DateEncounter TypeCare ProviderFacilityStart: 08-25-2025 End: 09-18-9462Rehapzhwv encounterMarobson SMITH Work Phone: noms [facility] OrthopaedicsStart: 08-25-2025 End: 13-85-5284moafwjhpbkNcxkil E Braun MD Work Phone: [facility] ClinicStart: 08-25-2025 End: 11-71-8807Kewavun encounter procedureFlorinda Flowers MD-[facility] Work Phone: Start: 08-20-2025 End: 73-39-8911Iclvya Oneida SMITH Work Phone: [facility]opaedicsStart: 08-20-2025 End: 71-90-7346Tylwiw Oneida SMITH Work Phone: noms [facility]opaedicsStart: 08-20-2025 End: 59-25-6025Ckvvvvcfm Result EncounterMarobson SMITH Work Phone: noms External Department UnsolicitedStart: 08-20-2025 Non-patient / Non-visitFlorinda Folwers MD-[facility] Work Phone: Start: 08-20-2025 End: 61-15-7532Jdxmaf outpatient visit 25 minutesMarobson SMITH Work Phone: noms [facility] OrthopaedicsComment on above:Acute right hip pain (Primary Dx); History of total right hip replacement; Right hip pain; Acute pain of left shoulder; PolyarthralgiaStart: 08-20-2025 End: 35-70-4896ybqqssgedaCEGOLYM J MEYERNot AvailableStart: 05-05-2025 End: 30-20-3228lsdgpzqgwpPuduzd E Braun MD Work Phone: [facility] Work Phone: Start: 05-05-2025 End: 75-17-8289Gsguyal encounter procedureUzma Nicole APRNPhoenix [facility] Work Phone: Start: 02-16-2025 End: 62-33-8057muyeoxpjwwIIEFJX GILLMORNot AvailableStart: 02-16-2025 End: 06-46-0788Xbocnt outpatient visit 25 minutesUzma Joel NP Work Phone: ana VASQUEZUEComment on above:Other insomnia (Primary Dx); Other chronic pain; Primary progressive aphasia (CMS/HCC); Bereavement; Memory lossStart: 02-15-2025 End: 48-31-2560Mbqvbmh encounter procedureMigel Dunlap PhD Work Phone: ana SANDCHELSIEYComment on above:Primary progressive aphasia (CMS/HCC) (Primary Dx); Memory loss; Other insomnia; Bereavement; 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); Word finding difficulty; Primary insomnia; Depression, unspecified depression type (CMS/HCC)Start: 02-15-2025 End: 94-79-8050wtltgewfgrNUMMJEVH DENBESTENNot AvailableStart: 02-15-2025 End: 33-38-0670Evfrse flowsheetMigel Pozosten PhD Work Phone: aGUY MONICAUSKYStart: 02-15-2025 End: 38-37-3047Zclmdx flowsClifford Dunlap PhD Work Phone: aGUY SANDUSKYStart: 02-02-2025 End: 72-23-6093rlzciwbupuRC., STEPANICNot AvailableStart: 02-02-2025 End: 75-93-4666Jwdeldf encounter procedureMigel Dunlap PhD Work Phone: aGUY RHONAomment on above:Primary progressive aphasia (CMS/HCC) (Primary Dx); Memory loss; Other insomnia; Bereavement; 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)Start: 01-20-2025 End: 18-86-0444zqhxnzgxnqSMZIMF DANNERNot AvailableStart: 01-18-2025 End: 52-62-2317joftavflnuRIDCCADW DENBESTENNot AvailableStart: 01-14-2025 End: 03-86-3232Wxatjy flowsheetNicole Brinda DO Work Phone: aGUY BELLEVUEStart: 01-14-2025 End: 94-32-2665Fbbkll flowsheetNicole Brinda DO Work Phone: aGUY BELLEVUEStart: 01-14-2025 End: 44-86-4132Wbvmst outpatient new 45 minutesNicole Brinda DO Work Phone: ana VASQUEZUEComment on above:Memory loss (Primary Dx); Primary insomnia; Pseudodementia; Depression, unspecified depression type (CMS/HCC)Start: 01-14-2025 End: 93-65-2225pkygmsyabhASGRLC DANNERNot AvailableStart: 70-93-9055Ehgidmy encounter Rosibel Flowers MD Work Phone: [facility] Hospitaltart: 12-02-2024 End: 11-97-7846Fwjrgw flowsheetJr. Dell Antoinette Stepanic DO Work Phone: noms [facility] ORTHOStart: 12-02-2024 End: 79-24-2233Goppyt flowsheetJr. Dell Antoinette Starkanic DO Work Phone: noms [facility] ORTHOStart: 12-02-2024 End: 12-39-4309eobuogrycvNU., DELL Curry STEPANICNot AvailableStart: 12-02-2024 End: 95-60-1074Okowcu outpatient visit 15 minutesJr. Dell Antoinette Adrian DO Work Phone: noms [facility] ORTHOComment on above:S/P TKR (total knee replacement), right (Primary Dx); Acute pain of left knee; History of left knee replacementStart: 09-16-2024 End: 26-80-8547Srbfgl follow up visit related to original [facility] SOCIAL SERVICE L[facility]ISONNEW [facility] Work Phone: [facility] General SurgeryComment on above: Inclusion cyst (Primary Dx)Start: 09-16-2024 End: 85-83-4618ijbhrmbtolICVHRDEEvergreenHealth [facility] Start: 09-14-2024 End: 27-63-2739Uvcnrj OnlyNot In System Ref [facility]ProA[facility] General SurgeryStart: 09-08-2024 End: 10-31-8051chirnleromEN Marcia E Braun Work Phone: [facility] SystemComment on above:Inclusion cyst Start: 09-08-2024 End: 91-76-9935Fbscezgz ReferredMD Florinda Flowers Work Phone: [facility]-LAB Path Spec [place] HospStart: 09-02-2024 End: 01-55-2340Gjpjaq outpatient new 20 minutesMicUF Health North DO Work Phone: [facility] General SurgeryComment on above: Inclusion cyst (Primary Dx)Start: 09-02-2024 End: 39-70-9808rxhtxefgdbVMXKIZFCity Emergency Hospital Ambulatory P[facility] Start: 08-21-2024 End: 71-75-6995Yprpckh encounter procedureMD Florinad Flowers Work Phone: [facility] Work Phone: Start: 02-14-2024 End: 07-20-1990Vxsstkulz encounterLauren Venia CMARockingham Memorial HospitalMedimt Physicians General SurgeryStart: 02-11-2024 End: 61-29-5794Bwpmgc OnlyNot In System Ref ProvProMedica Physicians General SurgeryStart: 02-05-2024 End: 73-93-8649wvwjvxwpzdKD Florinda Arriola Lionel Work Phone: [facility] HospitalComment on above:History of colon polypsStart: 02-05-2024 End: 50-83-4160Omfrdaau ReferredMD Florinda Flowers Work Phone: [facility]-LAB Path Spec [place] HospStart: 55-59-2010Djycuv OnlyMaria L Bean SOCIAL SERVICE LIAISON-WAITER/WAITRESS FIRST CLASS Work Phone: [facility] Physicians General SurgeryComment on above: History of colon polyps (Primary Dx)Start: 01-03-2024 End: 35-22-7693xwvilpacbkJLDVSLAEvergreenHealth Monroe Ambulatory PPG Start: 01-03-2024 End: 63-54-7427Muwfmu outpatient visit 15 minutesMaria L Bean SOCIAL SERVICE LIAISON-WAITER/WAITRESS FIRST CLASS Work Phone: [facility] SurgeryComment on above: History of colon polyps (Primary Dx)Start: 10-29-2023 End: 01-48-5783mwpkctbalqKqvnld Braun Other [employer] Other Start: 20-95-9391Rtpdsryou encounterMarcitianna Kaur [facility] Centertart: 08-19-2023 End: 23-71-3412axreprwzlaPqigor Braun Other [employer] Other Start: 92-85-6754Ajjpcrucx encounterMarcia Natasha [facility] ClinicStart: 08-05-2023 End: 89-19-6011lqqhuszgzgFqcowz Flowers Other [employer] Other Start: 10-96-6583Jxqsdoayn encounterMarcitianna Melendez [facility] ClinicStart: 06-18-2023 End: 91-99-9281cqtnpznvgtFvuzeb Flowers Other [employer] Other Start: 79-71-6758Yatjiuodh for other preprocedural examinationMarcitianna Melendez [facility] ClinicStart: 15-68-1599Tbovlb outpatient visit 25 minutesMarsaleem Melendez [facility] ClinicStart: 03-12-2023 End: 11-48-6396gutculxruwSyceya Flowers Other [employer] Other Start: 66-77-4032Utfkpxxbq encounterMarcia Natasha [facility]endez [facility] ClinicStart: 02-20-2023 End: 77-38-3247utnghuqwgrUS DOCTOR MISCFacility:O1Nobvn: 81-42-1414Gplfydo encounter procedureMarsaleem Melendez [facility] ClinicStart: 12-24-2022 End: 68-52-7777kcjwistxbhNH FLORINDA Arriola [employer] [facility] [employer] Other Start: 12-06-2022 End: 44-49-5048npljrtjprqFtsbfr Flowers Other [employer] Other Start: 79-34-2120Dtjdpevcp encounterMarcitianna Melendez [facility] ClinicStart: 93-92-8137Zyoioweyp for preprocedural laboratory examinationDR REHANA REINOSO .[facility] Hospitaltart: 2022 End: 05-96-0981hdrkkveplrWK REHANA REINOSO .Facility:N9Xjwuf: 11-19-2022 End: 01-27-0851vhlaourztwLU REHANA REINOSO .Facility:L5Voqgt: 11-19-2022 End: 01-04-5303Ddjklvbnj for preprocedural laboratory examinationDR REHANA REINOSO .Facility:W4Potgk: 10-31-2022 End: 52-96-8328tkazlpyjwqEC DOCTOR MISCFacility:E0Lkqsv: 63-86-6769Xokip health examinationFlorinda Flowers Other [employer] Other Start: 95-79-6933Bekooapxkeqqr examination normal Florinda Flowers Other [employer] Other Start: 87-01-7615Jly-procedure evaluation checkFlorinda Flowers Other [employer] Other Start: 29-10-7993Wvcleupheztb cardiovascular examinationFlorinda Flowers Other [employer] Other Start: 69-33-2807Acurhwn, abnormal examinationFlorinda Flowers Other [employer] Other Start: 09-30-2022 End: 86-55-7892aqsekqtqklPglshg Dymond Other [employer] Other Start: 28-55-4619Aixqvs outpatient visit 15 minutes Elizabeth WyattFPAbhijit Urgent Care ClydeStart: 08-14-2022 End: 24-72-5116qukgajsprySofc Bakhous Other [employer] Other Start: 21-14-8554Mqokur outpatient visit 25 minutes Teetee Bui NephrologyStart: 08-01-2022 End: 49-97-5105vpqizwcdrbKeyd Bakhous Other [employer] Other Start: 86-10-1362Ikpaphqrh encounterAziz BakzaheersFPG NephrologyStart: 07-30-2022 End: 25-16-0359uhknrwhegpYT LEI PEREZFacility:W8Rydnq: 39-81-3902Nmnllr outpatient visit 25 minutesFlorinda Zeinab Lionel Work Phone: [phone]-Wbtht [facility] 250 DO Work Phone: Start: 48-83-7442Xwolfiq encounter procedureTamarsaleem Arriola Lionel Work Phone: [phone]-Oovbj [facility] 600 DO Work Phone: Start: 22-99-6129yalgihzxtaXn. Florinda Flowers Facility:[id number]: 07-04-2022 End: 51-42-9433Wmjnfxixm to same day surgery centerMD Edwards Lionel Work Phone: [facility]-CT Scan Main [place] Start: 07-02-2022 End: 67-12-4792bsslsicvjhFK RYAN ORTIZFacility:O7Plwiz: 07-02-2022 End: 54-85-3598mqxrhrdrigWI ERROL CORBINFacility:C2Ijfsz: 06-12-2022 End: 56-76-8945pcpdhlbohiKign Waldemarsaint francis hospital & health servicess Other [employer] Other Start: 47-39-2568Tyugtg outpatient new 45 minutesAziz WaldemarzaheersFPG NephrologyStart: 03-19-2022 End: 83-24-8083Htqqrwy encounter procedure Florinda Lionel Work Phone: [facility]-Lab Str[address] RdStart: 80-62-8681Oyplosefa encounterErrol Corbin MD Work Phone: Hematology/OncologyComment on above:Lab OrdersStart: 12-20-2021 End: 15-52-1591Aehfmto encounter procedure Florinda Lionel Work Phone: [facility] C[facility]-XRay Strub RdStart: 02-15-2021 End: 99-15-5639Jkszw Mateo Crobin Work Phone: Hematology/OncologyStart: 02-02-2021 End: 71-10-0525Dtulvod encounter procedureExternal ProviderMercy Health [facility] Start: 06-11-1184Rszfxbs OnlyExternal ProviderExternal-NonCCF Procedures DateProcedureProcedure DetailPerforming ClinicianStart: 15-73-5648KIJ CBC WITH AUTO DIFFMarobson SMITH Work Phone: Start: 42-89-5007Rrmnk hip unilateral with pelvis 2-3 viewsMarobson SMITH Work Phone: Start: 11-89-9845Oxrrp i surg pathology gross examination onlyNot In System Ref ProvStart: 79-91-4419FLHQAXHU NON-[facility] PROCEDUREMichael E Grillis DO Work Phone: Start: 92-82-0996Sawih i surg pathology gross examination onlyNot In System Ref ProvStart: 02-05-2024 End: 62-23-4581GyvthemfdlzJtswdwk Tianna Bean SOCIAL SERVICE LIAISON-WAITER/WAITRESS FIRST CLASS Work Phone: Start: 63-17-6278BsbakpfinesJjokdcl Carroll SOCIAL SERVICE LIAISON-WAITER/WAITRESS FIRST CLASS Work Phone: Start: 39-18-7818Jaohb X-ray of bilateral femursMD Florinda Flowers Work Phone: Start: 64-48-8301Xqgwp X-ray of bilateral tibia and bilateral fibulaMD Florinda Flowers Work Phone: Start: 90-99-6943NTRAZAYB IMAGINGExternal Provider Start: 54-74-9078QIIQVSGE LABExternal ProviderStart: 98-52-2034Smwoxlfbd for malignant neoplasm of breastMarcia Lionel Other [...] Work Phone: Plan of Treatment DateCare ActivityDetailAuthorStart: 65-48-9492Giueu BMI ScreeningAdult BMI ScreeningDayton Children's Hospital SystemStart: 37-83-5844Msbywen ScreeningTobacco ScreeningWakeMed North Hospitaltart: 09-03-2025 End: 29-29-7986Ufyflih encounter /31/2025 10:45 AM EDT Office Visit [facility] [address] [place] [address] Ryan Milton PA [address] [place] [address] [facility] OrthopaedicsStart: 03-14-3681Ohbff BMI Screening Adult BMI ScreeningWakeMed North Hospitaltart: 30-31-1576Ngitmmt Screening Tobacco ScreeningWakeMed North Hospitaltart: 08-20-2025 End: 08-20-2026 reactive protein [Mass/volume] in Serum or PlasmaC-reactive protein Lab Routine Polyarthralgia Expected: 08/20/2025 (Approximate), Expires: 08/20/2026NOMS HealthcareComment on above:Expected: 08/20/2025 (Approximate), Expires: 08/20/2026Start: 08-20-2025 End: 81-11-0109RSQ W Auto Differential panel - BloodCBC and differential Lab Routine Polyarthralgia Expected: 08/20/2025 (Approximate), Expires: 08/20/2026 [facility] HealthcareComment on above:Expected: 08/20/2025 (Approximate), Expires: 08/20/2026Start: 08-20-2025 End: 96-60-0530Rzwvrgfofxb sedimentation rateSedimentation rate, automated Lab Routine Polyarthralgia Expected: 08/20/2025 (Approximate), Expires: 08/20/2026 NOMS HealthcareComment on above:Expected: 08/20/2025 (Approximate), Expires: 08/20/2026Start: 08-20-2025 End: 61-43-3939VSA-B27 antigenHLA-B27 antigen Lab Routine Polyarthralgia Expected: 08/20/2025 (Approximate), Expires: 08/20/2026NOWY HealthcareComment on above:Expected: 08/20/2025 (Approximate), Expires: 08/20/2026Start: 08-20-2025 End: 44-33-2080ZIZJ DISEASE ANTIBODY (IGG), IMMUNOBLOTLYME DISEASE ANTIBODY (IGG), IMMUNOBLOT Lab Routine Polyarthralgia Expected: 08/20/2025 (Approximate), Expires: 08/20/2026[facility] HealthcareComment on above:Expected: 08/20/2025 (Approximate), Expires: 08/20/2026Start: 08-20-2025 End: 26-33-1625Tjvfchq Ab [Titer] in Serum by ImmunofluorescenceANA Lab Routine Polyarthralgia Expected: 08/20/2025 (Approximate), Expires: 08/20/2026[facility] HealthcareComment on above:Expected: 08/20/2025 (Approximate), Expires: 08/20/2026Start: 08-20-2025 End: 32-96-9461Lgclfwcfvf factor [Units/volume] in Serum or PlasmaRheumatoid factor Lab Routine Polyarthralgia Expected: 08/20/2025 (Approximate), Expires: 08/20/2026[facility] Healthcare Work Phone: Comment on above:Expected: 08/20/2025 (Approximate), Expires: 08/20/2026Start: 08-20-2025 End: 26-45-7821FWWMPTPT LUPUS ERYTHEMATOSUS (SLE), DISEASE ACTIVITY PANEL SYSTEMIC LUPUS ERYTHEMATOSUS (SLE), DISEASE ACTIVITY PANEL Lab Routine Polyarthralgia Expected: 08/20/2025 (Approximate), Expires: 08/20/2026[facility] HealthcareComment on above:Expected: 08/20/2025 (Approximate), Expires: 08/20/2026Start: 08-20-2025 End: 85-84-2202Qlfzu [Mass/volume] in Serum or PlasmaUric acid Lab Routine Polyarthralgia Expected: 08/20/2025 (Approximate), Expires: 08/20/2026NOWY HealthcareComment on above:Expected: 08/20/2025 (Approximate), Expires: 08/20/2026Start: 08-20-2025 End: 24-36-0252Qeitcoc encounter tavzqwxhd24/17/2025 9:15 AM EDT Office Visit [facility] [address] [phone] Ryan Milton PA [address] [place] [phone] Acute right hip pain (Primary Dx); History of total right hip replacementNOGood Samaritan Hospital OrthopaedicsComment on above:Acute right hip pain (Primary Dx); History of total right hip replacementStart: 75-81-7337Gykvjipsn vaccination Influenza Vaccine (Season Ended)[facility]Start: 05-05-2025 End: 26-50-9594Yxtpxpk encounter vunmplpye58/02/2025 10:40 AM EDT Office Visit AWDE SANON [address] [place] [phone] Uzma Joel NP [address] [place] [address] WADE OVALLEUEStart: 02-16-2025 End: 04-57-6985Rycvlmq encounter cxabbxxrq97/15/2025 10:40 AM EDT Office Visit WADE SANON [address] [place] [phone] Uzma Joel, DAVIS [address] [place] WADE WILDERtart: 02-15-2025 End: 18-07-6724Ebvtizj encounter procedureWADE MELGOZAomment on above:Arrived Start: 52-43-7642Eycrolifc for malignant neoplasm of colonColonoscopyMartin Memorial Hospitalca Health SystemStart: 01-20-2025 End: 22-57-7273Jssmptvg Ffynrlo0601/20/2025 2:00 PM EDT Clinical Support WADE SANON [address] [place] [address] aGUY SANON Start: 01-18-2025 End: 99-44-3148Ihreypl encounter iatxpknht65/17/2025 2:30 PM EDT Office Visit WADE TRUONG [address] [place] [address] Migel Dunlap, PhD [address] [place], [place] [id number] WADE DYKESYStart: 01-14-2025 End: 27-08-1558Gvoxdpjra (Vitamin B12) [Mass/volume] in Serum or PlasmaVitamin B12 Lab Routine Memory loss Expected: 01/14/2025 (Approximate), Expires: 01/14/2026[facility] HospitalComment on above:Expected: 01/14/2025 (Approximate), Expires: 01/14/2026Start: 01-14-2025 End: 98-95-2725QCX awake or drowsyEEG awake or drowsy Neurology Routine Memory loss Expected: 01/14/2025 (Approximate), Expires: 01/14/2026[facility] Healthcare Comment on above:Expected: 01/14/2025 (Approximate), Expires: 01/14/2026Start: 01-14-2025 End: 30-56-4612Wxasev [Mass/volume] in Serum or PlasmaFolate Lab Routine Memory loss Expected: 01/14/2025 (Approximate), Expires: 01/14/2026[facility] Healthcare Comment on above:Expected: 01/14/2025 (Approximate), Expires: 01/14/2026Start: 01-14-2025 End: 99-94-2780FX Brain WO contrastMR brain wo contrast Imaging Routine Memory loss Expected: 01/14/2025, Expires: 01/14/2026[facility] Work Phone: comment on above:Expected: 01/14/2025, Expires: 01/14/2026Start: 01-14-2025 End: 60-79-8498Tusimwmazzh [Units/volume] in Serum or PlasmaTSH Lab Routine Memory loss Expected: 01/14/2025 (Approximate), Expires: 01/14/2026NOMS HealthcareComment on above:Expected: 01/14/2025 (Approximate), Expires: 01/14/2026Start: 01-14-2025 End: 56-78-5467Axxncok encounter hvfgsnhut67/13/2025 11:15 AM EDT Office Visit WADE SANON [address] [place] [phone] Mc Parry DO [address] [place] [address] Rich SANONComment on above:ArrivedStart: 43-02-4218Ctnto BMI ScreeningAdult BMI ScreeningProOhiohealth Southeastern Medical Centerca [facility] SystemStart: 16-34-6249Ntjhbli ScreeningTobacco ScreeningProOhiohealth Southeastern Medical Centerca [facility] SystemStart: 09-16-2024 End: 73-15-1424Senhcuc encounter xwjqrpyfw94/13/2024 10:30 AM EST Office Visit [facility] [address] [place] [address] Maria L Bean, DANYA-WAITER/WAITRESS FIRST CLASS [address] [place] [address] [facility] SurgeryStart: 09-08-2024 End: 75-12-5490Zubaksrp Non-[facility] ProcedureUnlisted Non-[facility] Procedure Procedures Routine Inclusion cyst Expected: 09/08/2024, Expires: 09/02/2025 [facility] Work Phone: Comment on above:Expected: 09/08/2024, Expires: 09/02/2025Start: 09-60-5307KRXBW-19 Vaccine ( season)COVID-19 Vaccine ( season)[facility]MRidge[facility] SystemStart: 30-72-0552Xjumhkmnj vaccinationProFostoria City Hospital SystemStart: 02-05-2024 End: 15-91-5775Qydfakc encounter mpxxvirrm84/03/2024 7:30 AM EDT Procedure visit [facility] [address] [place] [address] Rehana Reinoso DO [address] [id number] [facility] SurgeryStart: 92-64-6615Uiyrkealt for malignant neoplasm of colonColonoscopyProFostoria [facility] 99-25-0413MOJ, Provider: Lei Perez, Status: Pen, Time: 9:50 AM FUV, Provider: Lei Perez, Status: Pen, [facility]: 9:50 [facility] Work Phone: Start: 96-72-9187XTFZK-19 Vaccine ( season) COVID-19 Vaccine ( season)[facility] SystemStart: 07-05-2023 Influenza vaccinationInfluenza VaccineDayton Children's Hospital SystemStart: 07-05-2022 Influenza vaccinationINFLUENZA (Season Ended)[facility]: 07-04-2022 [facility] Work Phone: Start: 01-42-1282Dmkywd biopsyCT guided biopsy [facility]tart: 33-54-3981Jmdhtsocovup Vaccine: 65+ Years (2 of 2 - PCV)Pneumococcal Vaccine: 65+ Years (2 of 2 - PCV)[facility] HospitalStart: 02-15-2022 End: 78-77-0284PEI W Auto Differential panel - BloodCBC + DIFF Lab Routine Malignant neoplasm of upper-outer quadrant of left breast in female, estrogen receptor positive (HCC) Expected: 02/15/2022, Expires: 04/17/2022[facility] Work Phone: Comment on above:Expected: 02/15/2022, Expires: 04/17/2022tart: 02-15-2022 End: 40-98-7028Covfmlxylvzph metabolic 2000 panel - Serum or PlasmaCOMP METABOLIC PANEL Lab Routine Malignant neoplasm of upper-outer quadrant of left breast in female, estrogen receptor positive (HCC) Expected: 02/15/2022, Expires: 04/17/2022[facility] Work Phone: Comment on above:Expected: 02/15/2022, Expires: 04/17/2022tart: 30-27-9778NBZICZD DIRECTIVE DISCUSSIONADVANCE DIRECTIVE DISCUSSIONAkron Children's Hospitaltart: 07-34-2956Kjrckrhcv vaccinationINFLUENZA (Season Ended)[facility]: 41-15-8449OPYYP-19 VACCINE (3 - Booster) COVID-19 VACCINE (3 - Booster)[facility]: 63-48-9918IRYFODK DIRECTIVE DISCUSSIONADVANCE DIRECTIVE DISCUSSIONAkron Children's Hospitaltart: 87-05-3678EMIA DENSITYBONE DENSITYAkron Children's Hospitaltart: 74-06-4239Fltc Risk ScreeningFall Risk ScreeningWakeMed North Hospitaltart: 16-66-6525HLKDQGIHY AGE 65 AND OVER WITH 5YR LOOKBACK (#1)PNEUMOVAX AGE 65 AND OVER WITH 5YR LOOKBACK (#1)[facility]: 21-11-7713BJBMUYPH SCREENDIABETES SCREENAkron Children's Hospitaltart: 26-26-5986Yqnbikxkpbhjwc of varicella zoster vaccineZoster (Shingles) Vaccine (1 of 2)[facility] SystemStart: 52-86-9278Ftyhiytth for malignant neoplasm of colonAkron Children's Hospitaltart: 97-52-5782MJZGORJB VACCINE (1 of 2)SHINGRIX VACCINE (1 of 2)[facility]: 31-91-0163MVWISWLVF (FIT-DNA)COLOGUARD (FIT-DNA)[facility]: 93-61-2804FqevzfgvgibGGAZBMEXJPDOvybxxspw Clinic Start: 82-64-5401NVLOXNQVOQ CANCER SCREENINGCOLORECTAL CANCER SCREENINGAkron Children's Hospitaltart: 20-06-8746NZ COLONOGRAPHYCT COLONOGRAPHYAkron Children's Hospitaltart: 64-91-7519DAMMT OCCULT BLOODFECAL OCCULT BLOODAkron Children's Hospitaltart: 2000 LIPID SCREENLIPID SCREENAkron Children's Hospitaltart: 5236HKCETRNIVASJJ SIGMOIDOSCOPYAkron Children's Hospitaltart: 43-64-6845CtcqxlswhfsHFFVUEWCJKjvjytaul ClinicStart: 95-48-2442Molyejkrq for malignant neoplasm of breastMaogramJORDAN VALLEY MEDICAL CENTER HealthcareStart: 85-67-7881TBnC,Tdap and Td Vaccines (1 - Tdap)DTaP,Tdap and Td Vaccines (1 - Tdap)[facility] Hospitaltart: 94-06-7174Dzgmz microalbumin profileDTAP,TDAP,TD (1 - Tdap)[facility]: 75-08-5874Tbyjb BMI Follow Up PlanAdult BMI Follow Up PlanWakeMed North Hospitaltart: 66-68-3018JFNMSTSFI C SCREENINGHEPATITIS C SCREENINGAkron Children's Hospitaltart: 24-81-7742NQE SCREENING HIV SCREENINGAkron Children's Hospitaltart: 05-66-2428Frgcx depression screening assessmentDEPRESSION SCREENINGAkron Children's Hospitaltart: 01-18-1956Medicare Annual Wellness VisitMedicare Annual Wellness VisitWakeMed North Hospitaltart: 23-43-2249Gtfgixyzo for malignant neoplasm of colonJORDAN VALLEY MEDICAL [facility]ENTER Healthcare End: 63-18-1524OydzzvlxhjlTavlcjiyosx GI Routine History of colon polyps 1 Occurrences starting 01/03/2024 until 01/02/2025[facility] Work Phone: Comment on above:1 Occurrences starting 01/03/2024 until 5Cryoglobulin [Presence] in SerumUpper [facility] Center C[facility] Work Phone: Patient EducationKidnLutheran [facility] Work Phone: XR Knee - left 1 or 2 ViewsXR knee 1 or 2 views left Imaging Routine Acute pain of left knee 12/02/2024 10:39 AM [facility] Work Phone: [facility] Immunizations Immunization DateImmunizationNotesCare CboaaoejVzsygrse45-66-9529Fdfgghj Bivalent Booster VaccinationJr. Stepanic DO Work Phone: [facility] HospitalCdzmjscrnk96-93-7948RPFGV-56 mRNA-1273 (Moderna) MD Florinda Flowers Work Phone: [facility]10-18-2021influenza virus vaccine, split virus (incl. purified surface antigen)Florinda Flowers Other [place] Other 745048-01-8910wqcdsrmyz virus vaccine, unspecified formulationMaria L Bean SOCIAL SERVICE LIAISON-[facility] Work Phone: [facility]10-18-2021Seasonal trivalent influenza vaccine, adjuvanted, preservative freeFlorinda Flowers Work Phone: [phone]-QplakAppleton Municipal Hospital 600 DO Work Phone: [phone]uejbwztzx polysaccharide vaccine, 23 valentMarsaleem Flowers Work Phone: [facility]03-09-2021COVID-19 mRNA-1276 (Moderna)MD Florinda Flowers Work Phone: [facility]03-09-2021COVID-19 vaccine (UNSPECIFIED)Errol Corbin MD Work Phone: [facility] HospitalTdqypx83-85-2659OELVA-06 mRNA-1273 (Moderna) MD Florinda Flowers Work Phone: [facility]02-08-2021COVID-19 vaccine (UNSPECIFIED)Errol Corbin MD Work Phone: [facility] HospitalKtdvrf40-39-7890pljqerkac virus vaccine, unspecified formulationFlorinda Flowers Work Phone: [phone]-HrhftUnited [facility] 600 DO Work Phone: [phone]fim, seasonal, injectableJr. Stepanic DO Work Phone: [facility] HospitalVgedofcuzj32-46-4785dveixdmwl virus vaccine, unspecified formulationMarcia E Flowers Work Phone: [phone]-BeezpAppleton Municipal Hospital 600 DO Work Phone: [phone]pvrfbp virus vaccine, unspecified formulationMarcia E Flowers Work Phone: [phone]-RzvelAppleton Municipal Hospital 600 DO Work Phone: [phone]bw fttapdqce-U7E9-32, preservative-free, injectableMarcia E Flowers Work Phone: [phone]-KiyoiAppleton Municipal Hospital 600 DO Work Phone: Payers DatePayer CategoryPayerPolicy [id number]-[id number] Care Other (unspecified) [facility] Member Subscriber Plan / Payer (Effective 2021-Present) Name: Uzma Ramirezelle Relation to Subscriber: Self Name: Uzma Ramirezelle Payer ID: [id number] (NAIC) Group ID: Not on file Type: Not on file Address: [facility] [address] [place] [id number]. Private Health Insurance1.2.840.049111.1.13.693.2.7.9.897141.522165.315 [id number] 1.2.840.213511.1.13.159.2.7.3.334752. Medicare1.2.840.482625.1.13.424.2.7.9.230811.102.27254-02-2787Ktryazw Health Wtxecacgynkcumly4229 1.2.840.171320.1.13.159.2.7.3.367647.315 1960Medicare [id number] 341gg301-csad-4189-053s-o8t9q[id number] 2.0.1.143758.3.579.2.54198-40-5042Hbvwjuk8626864 2.0.1.218751.3.579.2.66918-58-5454Ndakmee0484754 2.0.1.086372.3.579.2.99764-76-9326Kqigrbs6873533 2.840.1.833251.3.579.2.79058-63-8032Hkhvyph9841550 2.840.1.871242.3.579.2.26373-81-2085Swxjphv3405128 2..1.339426.3.579.2.15789-78-7834Zacwmno3099030 2.840.1.032258.3.579.2.62624-54-1193Jhfaogg7709018 2.840.1.524131.3.579.2.91166-83-8820Sxxbsgt8356135 2.840.1.363957.3.579.2.46668-86-3920Oygyczk86809790 2.840.1.184555.3.579.2.554610-12-1599Gfklhww44544124 2.16840.1.042742.3.579.2.599804-90-5516Jrxbejs17463253 2.16.840.1.446974.3.579.2.804740-92-3683Juegtlh74489399 2.16840.1.565723.3.579.2.727336-04-0514Oczhjjo53417774 2.840.1.043403.3.579.2.118108-93-9200Viiwksf8721235 2.840.1.414521.3.579.2.975904-53-9053Waucopl4106453 2.840.1.394387.3.579.2.806715-06-7209Byiewcs7905875 2.840.1.136282.3.579.2.521755-18-4026Lsuwiep8308272 2.840.1.716643.3.579.2.505900-33-1593Kbuyort3629448 2.840.1.747256.3.579.2.832769-04-8946Amrhsdj4944753 2.840.1.311938.3.579.2.559580-03-8204Jjpkucx5940839 2.840.1.914318.3.579.2.211600-32-3004Angfwcw7896714 2.840.1.955980.3.579.2.7261Jjmchze240446283626 90e1dpz4-c5i2-35y8-4dz8-cfb8r1h2s8u5KqhoudpPixdfao68499338 2.16840.1.564927.3.579.2.366Grylqne98830498 2.840.1.872906.3.579.2.531 Bjfmrfg25669892 2..840.1.551937.3.579.2.531 Social History DateTypeDetailFacilityStart: 01-27-2015 End: 69-74-1017Micdrep smoking status NHISFormer smokerMercy Health Perrysburg HospitalHistory of tobacco useCigarette SmokerAkron Children's Hospitaltart: 01-27-2015 End: 32-51-5986Ozrknyakue smoked current (pack per day) - ReportedAkron Children's Hospitaltart: 01-27-2015 End: 77-86-3210Hqetgdk use and exposureNever usedAkron Children's Hospitaltart: 01-27-2015 End: 03-51-6317Oltfrvx intakeCurrent drinker of alcohol (finding)[facility] Hospitaltart: 15-83-6191Xgb Assigned At BirthNot on fileAkron Children's Hospitaltart: 91-59-4774Bcf [facility] At [facility]art: 09-02-2024 End: 75-97-6939Bal Assigned At [facility] [employer] Other Start: 07-04-2022 End: 97-36-0726Terwubc smoking status NHISNever smoked tobacco (finding) [facility]onHistory of tobacco useCurrent smokerProFostoria City Hospital SystemStart: 53-95-9224FdkfugeflGjywowcTjsPxycnl Health SystemStart: 17-88-0090Idhrrao CommentTried cigarettes when 17 years oldDayton Children's Hospital SystemStart: 14-61-5236Xcsuidl CommentrarelyPBlanchard Valley Health System [facility] SystemStart: 13-82-2053ZwsJfhbnn (finding)[facility] SystemStart: 12-25-2023 End: 71-30-1051Osshrcnon beverage intakeEx-drinker (finding)[facility] Medical Equipment Procedure CodeEquipment CodeEquipment Original TextEquipment IdentifierDates [facility] 40gm Rpl 131000+099115+248100 - Sn/A - [id number] ()[id number]([id number](10)[id number](21)N/A, 571850_imp FDAStart: 03-73-0388Euslhv Bn Bio 40gm Rpl 515910+212392+874693 - Sn/A - [id number] ()[id number](17)[id number](10)[id number](21)N/A, 571852_imp FDAStart: 88-89-9315Bsjmbp Artc 3-4 E-F 10mm Kn Fx Brng Prlng Nxgn Lpsflx Strl Lpsflx Rpl 297190 + 39471 - Sn/A - [id number] ()[id number](17)[id number](10)[id number](21)N/A, 571841_imp FDAStart: 06-25-2023 Component Fem E Kn Rt Lpsflx Gndr Melissa? Nxgn Cocr Rpl [id number] - Sn/A - [id number]()[id number](17)[id number](10)[id number]()N/A, 571845_imp FDAStart: 41-58-0762Uawzrqxgx Ptlr 32mm Persona Alply Kn Strl Lf - Sn/A - [id number] 571849_impStart: 41-16-7476Vxqaq Tib 44v85wj Nxgn Kn Cmnt Mdlr Stm Prect 4 Tiv Pmma Rpl 002070 + 767759 - Sn/A - [id number] ()[id number](17)[id number](10)[id number](21)N/A, 571843_imp FDAStart: 06-25-2023 Goals DatePatient GoalDesired Activity/StatePersonal health goalComment on above: Evaluation of progress towards goal: Home with family support and [facility] services Clinical Notes 02-06-2022 to 08-25-2025 Note Date & SuolEmpdUlwlnkef36-57-5611 Telephone encounter Note* Telephone Encounter - LUIS [...] agreeable to see him given past experience [facility] HospitalZqhqnjdpyj26-71-5241 Miscellaneous Notes* Telephone Encounter - LUIS Franklin [...] him given past experience documented in this encounterRipley County Memorial HospitalViylvsjvyq18-03-9344 History of Present illness Narrative* LUIS Franklin [...] requiring urgent evaluation. Visit was preformed using boosk Co-radiographer angiogram speech recognition. documented in this encounterRipley County Memorial HospitalAvzvbmnedx25-47-5916 History of Present illness Narrative* Uzma Marycruz, [...] she believes. . She works at the [employer] and will be starting this in March [...] to clinic: 2-3 months documented in this [facility]04-14-2025 History of Present illness Narrative* Migel Dunlap, PhD - 02/15/2025 2:30 PM EDT Images from the original note were not included. Neuropsychology Migel Dunlap, PhD NEUROPSYCHOLOGICAL EVALUATION FEEDBACK Findings are recommendations discussed. Questions addressed. Thank you for allowing me to participate in the care of this individual. Please contact me with [employer] at [phone]. documented in this [facility]04-01-2025 History of Present illness Narrative* Migel Dunlap, [...] No history of alcohol/substance abuse or smoking. [place] language Icelandic. Completed a bachelor's degree. 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 [...] design >16th %ile. 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 Active listening, such as repeating and [...] of this individual. Please contact me with [employer] at [phone]. documented in this encounterRipley County Memorial HospitalFtmnowotot86-39-3367 History of Present illness Narrative* Mc Parry, [...] he collapsed. He refused to goto the [facility]. He wanted to take a nap. [...] to clinic: 2-3 months documented in this encounterRipley County Memorial HospitalFlcbclqoxe84-50-7408 History of Present illness Narrative* Jr. Dell [...] 02/21/22, 03/07/22 NO CORTISONE INJ FINISHED PT [facility] NO PAIN MANAGEMENT DOING WELL. TAKING [...] Tobacco Use: Medium Risk (09/16/2024) Received from [facility] Patient History Smoking Tobacco Use: Former Smokeless [...] for requiring urgent evaluation. documented in this encounterRipley County Memorial HospitalXxthcqbsqt78-02-2281 History of Present illness Narrative* WALDEMAR Malloy [...] as needed. Inclusion cyst [L72.0] WALDEMAR MALLOY [facility] [place] This note was created with the assistance of a speech recognition program. While intending to generate a timely document that accurately reflects the content of the visit, no guarantee can be provided that every grammatical or spelling mistake has been or will be identified or corrected. Thank you for your understanding. AWLDEMAR Malloy 09/16/24 1117 documented in this encounterLima City Hospital10-30-2024 History of Present illness Narrative* Rehana Reinoso, DO - 09/02/2024 9:00 AM EDT Images from the original note were not included. [facility] [address] [place] [address] CONSULT NOTE CHIEF COMPLAINT Chief Complaint Patient [...] Medical History: Diagnosis Date Arthritis Breast cancer ([facility] 2002 Hypertension Obesity Osteopenia Urinary frequency Visual impairment SURGICAL HISTORY Past Surgical History: Procedure Laterality Date BACK SURGERY x2 BREAST RECONSTRUCTION Left COLONOSCOPY 04/2018 MASTECTOMY Left 2002 at [facility] REPLACEMENT TOTAL JOINT KNEE Right 06/25/2023 Performed by Dell Adrian Jr., DO at [facility]PL[facility] TOTAL KNEE Left 01/2022 TOTAL [...] MAC in the prone position at the [facility]. Risks benefits alternatives to procedure may include [...] patient/family/caregiver Referring and communicating with other health weekend caregiver Inclusion cyst [L72.0] Rehana Reinoso DO This note was created with the assistance of a speech recognition program. While intending to generate a timely document that accurately reflects the content of the visit, no guarantee can be provided that every grammatical or spelling mistake has been or will be identified or corrected. Thank you for your understanding. documented in this encounterMartin Memorial HospitalM-Farm Pvdhcr46-30-7798 Miscellaneous Notes* Telephone Encounter - Rita Baker [...] year. Thanks, Dr. Lacey documented in this encounterLima City Hospital04-12-2024 Telephone encounter Note* Telephone Encounter - [...] schedule for 1 year. Thanks, Dr. Lacey [facility]03-01-2024 History of Present illness Narrative* Maria L Bean, SOCIAL SERVICE LIAISON-WAITER/WAITRESS FIRST CLASS - 01/03/2024 11:00 AM EST Images from [...] Medical History: Diagnosis Date Arthritis Breast cancer ([facility]) 2002 Hypertension Obesity Osteopenia Urinary frequency Visual impairment Past Surgical History: Procedure Laterality Date BACK SURGERY x2 BREAST RECONSTRUCTION Left COLONOSCOPY 04/2018 MASTECTOMY Left 2002 at [facility] REPLACEMENT TOTAL JOINT KNEE Right 06/25/2023 Performed by Dell Adrian Jr., DO at [facility] TOTAL KNEE Left 01/2022 TOTAL [...] patient/family/caregiver Referring and communicating with other health weekend caregiver History of colon polyps [Z86.010] WALDEMAR MALLOY [facility] [place] This note was created with the assistance of a speech recognition program. While intending to generate a timely document that accurately reflects the content of the visit, no guarantee can be provided that every grammatical or spelling mistake has been or will be identified or corrected. Thank you for your understanding. WALDEMAR Malloy 01/03/24 1155 documented in this encounterLima City Hospital12-26-2023 Evaluation note* Encounter Date Diagnosis Assessment Notes Treatment Notes Treatment Clinical Notes Oct, Primary insomnia (ICD-10 - F51.0 1) Oct,Essential (primary) hypertension (ICD-10 - I10) [facility] Other 10-02-2023 Evaluation note* Encounter Date Diagnosis Assessment Notes Treatment Notes Treatment Clinical Notes Aug, Primary insomnia (ICD-10 - F51.0 1) Aug,rimary hypertension (ICD-10 - I10) [facility] Other 08-15-2023 Evaluation note* Encounter Date Diagnosis Assessment Notes Treatment Notes Treatment Clinical Notes Jun, Essential (primary) hypertension (ICD-10 - I10) Chronic problem - stable; refilled meds. Jun,reoperative examination (ICD-10 - Z01.818)Uzma is in good health. I do not have labs from [facility], but barring any abnormalities she is low risk for upcoming knee replacement. Jun,hronic kidney disease, stage 3a (ICD-10 - N18.31)Established with Nephrology - continue to monitor and keep bp controlled. [facility] Other 02-20-2023 Evaluation note* Encounter Date Diagnosis [...] - F51.01)chronic problem. denies issues with medication. [facility] Other 02-02-2023 Evaluation note* Encounter Date Diagnosis Assessment Notes Treatment Notes Treatment Clinical Notes Dec, Primary hypertension (ICD-10 - I 10) [facility] Other 11-27-2022 Evaluation note* Encounter Date Diagnosis [...] no improvement in 2 to 3 days [facility] Other 10-11-2022 Evaluation note* Encounter Date Diagnosis [...] negative. Kidney biopsy did not show glomerulonephritis [facility] Other 08-09-2022 Evaluation note* Encounter Date Diagnosis [...] kidney biopsy to rule out lupus nephritis [facility] Other 04-14-2022 NoteHNO ID: [id number] Author: Errol Corbin MD Service: ? Author [...] Normal RADIOLOGY/OTHER STUDIES: 06/28/2021 Bilateral screening mammogram ([facility]) No significant suspicious findings in the right breast or left breast. Routine mammogram in 12 months recommended. 02/28/2021 Bone density DEXA ([facility]) Osteoporosis ASSESSMENT/PLAN: 1. Malignant neoplasm of left breast in female, estrogen receptor positive (HCC) - ICD9: 174.4, V86.0, ICD10: C50.412, Z17.0 (primary diagnosis) Stage IIB (pT2, N1mic, M0) ER/WV positive HER-2 negative left-sided breast cancer diagnosed November 2002. Status post left modified radical right mastectomy and lymph node dissection 12/01/2002 (Dr. Dinesh Gomez). Postop the patient received adjuva (more content not included)...[facility]04-05-2022 Miscellaneous Notes* Telephone Encounter - Corinne Bentley MA - 02/06/2022 11:[address]/sign lab orders for 02/15/22. Thanks. Corinne Reyes MA documented in this encounterMcKitrick Hospital note* Diagnosis Malignant neoplasm of upper-outer quadrant of left breast in female, estrogen receptor positive (HCC)- Primary [facility] noteNo assessment information availableUpper Valley Medical Center Ctr Work Phone: Evaluation noteNo InformationNort [employer] Other Evaluation note* Diagnosis Onset Date Resolution Status Scalp mass acute [facility] Work Phone: Evaluation note* Diagnosis S/P TKR (total knee replacement), right- Primary Acute pain of left knee History of left knee replacement documented in this encounter [facility] HealthcareEvaluation note* Diagnosis History of colon polyps- Primary documented in this encounter [facility] SystemEvaluation [facility]* Diagnosis History of colon polyps- Primary documented in this encounter [facility]* Diagnosis History of colon polyps documented in this encounter [facility] SystemEvaluation note* Diagnosis Inclusion cyst- Primary Sebaceous cyst documented in this encounter [facility] SystemEvaluation note* Diagnosis Inclusion cyst Sebaceous cyst documented in this encounter [facility] System[facility] note* Diagnosis Inclusion cyst- Primary Sebaceous cyst documented in this encounter [facility] SystemEvaluation note* Diagnosis Memory loss- Primary Primary insomnia Persistent disorder of initiating or maintaining sleep 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 Depression, unspecified depression type (CMS/HCC) documented in this encounter [facility] HealthcareEvaluation note* Diagnosis Primary progressive [...] PAINMedical HistoryLEFT SIDED BREAST SURGERY Surgical HistoryHIP [id number] HistoryRIGHT KNEE ARTHROSCOPY Surgical HistoryMASTECTOMY LEFTSurgical HistoryHYSTERECTOMYSurgical History WISDOM TEETHSurgical HistoryLUMBAR FUSION F5Izfqqtfh HistoryLEFT KNEE REPLACEMENT3/2Surgical HistoryHIP [id number] HistorySEE ABOVE [facility] Other InstructionsNot on filedocumented in this encounter [facility] SystemInstructionsNot on filedocumented in this encounter [facility] SystemInstructionsNot on filedocumented in this encounter [facility] SystemInstructionsNot on filedocumented in this encounter [facility] SystemReason for referral (narrative)No reason for referral information availableThe [facility] Work Phone: Summary Purpose Family History [...] managed by rheumatology * Lei Perez MD, [facility] Additional Source Comments Source Comments (unrecognize d section and content) In the event this informatio n is protected by the Federal Confidentiality of Alcohol and Drug Abuse Patient Records regulations: The Federal rules restrict any use of the information to criminally investigate or prosecute any alcohol or drug abuse patient.[facility] HospitalIn the event this information is protected by the Federal Confidentiality of Alcohol and Drug Abuse Patient Records regulations: The Federal rules restrict any use of the information to criminally investigate or prosecute any alcohol or drug abuse patient.[facility] HospitalIn the event this information is protected by the Federal Confidentiality of Alcohol and Drug Abuse Patient Records regulations: The Federal rules restrict any use of the information to criminally investigate or prosecute any alcohol or drug abuse patient.[facility] INFORMATION SOURCE (unrecogn ized section and content) DATE CREATED AUTHOR 12/28/2021 [facility] [employer] DATE CREATED AUTHOR AUTHOR'S ORGANIZ ATION 02/16/2022 [facility] DATE CREATED AUTHOR AUTHOR'S ORGANIZ ATION 08/04/2022 [facility] DATE CREATED AUTHOR AUTHOR'S ORGANIZ ATION 08/04/2022 [facility] DATE CREATED AUTHOR AUTHOR'S ORGANIZ ATION 02/24/2023 [facility] DATE CREATED AUTHOR AUTHOR'S ORGANIZ ATION 09/11/2024 [facility] DATE CREATED AUTHOR AUTHOR'S ORGANIZ ATION 09/18/2024 [facility] DATE CREATED AUTHOR AUTHOR'S ORGANIZ ATION 08/25/2025 [facility] EPIC Reason for Visit (unrecogniz ed section and content) ReasonCommentsLab OrdersReasonCommentsPainReasonCommentsColon Cancer Screening1 YEAR RECALL, COLONOSCOPY by DR RizoCommentsCystLump behind Left ear, referred by Dr. BartlettCommentsPost-opPost op excision of inclusion cyst on left posterior scalp performed 09/08/24 at [facility]ReasonCommentsMemory LossSpecialty Diagnoses / ProceduresReferred By ContactReferred To ContactNeurology Diagnoses Other amnesia Procedures [place] OFFICE/OUTPATIENT NEW LOW MDM 30 MINUTES Florinda Flowers MD [address] [place] [address] Phone: tel: fax: Dennis Henriquez, DO [address] [place] [id number] Phone: tel: fax: Referral IDStatusReasonStart DateExpiration DateVisits RequestedVisits [id number] Consult and Treat /[id number] Loss Care Teams (unrecognized sec tion and content) Team MemberRelationshipSpecialtyStart DateEnd Date Florinda Flowers MD [address] [place] [phone] PCP - GeneralFamily Practice01/26/14 Team Status: Inactive Member Role Status Dates Florinda Flowers MD Primary Care Provider Active Taylor Barboza ProviderActive Team Status: Inactive Member Role Status Dates Florinda Flowers MD Primary Care Provider Active LUIS [facility] ProviderActive Team Status: Active Member Role Status [...] 2024Team MemberRelationshipSpecialtyStart DateEnd Date Florinda Flowers MD [address] [place], [place] [id number] PCP - General04/30/18Team MemberRelationshipSpecialtyStart DateEnd Date Florinda Flowers MD [address] [place] [address] PCP - GeneralFamily Medicine05/21/23Team MemberRelationshipSpecialtyStart DateEnd Date Florinda Flowers MD [address] [place] [phone] PCP - GeneralFamily Medicine05/21/23Team MemberRelationshipSpecialtyStart DateEnd Date Florinda Flowers MD [address] [place] [address] PCP - General04/30/18Team MemberRelationshipSpecialtyStart DateEnd Date Florinda Flowers MD [address] [place] [address] PCP - General04/30/18Team MemberRelationshipSpecialtyStart DateEnd Date Florinda Flowers MD [address] [place] [address] PCP - General04/30/18Team MemberRelationshipSpecialtyStart DateEnd Date Florinda Flowers MD [address] [place] [address] PCP - General04/30/18Team MemberRelationshipSpecialtyStart DateEnd Date Florinda Flowers MD [address] [place] [address] PCP - General6/27/18Team MemberRelationshipSpecialtyStart DateEnd Date Florinda Flowers MD [address] [place] [address] PCP - General04/30/18Team MemberRelationshipSpecialtyStart DateEnd Date Florinda Flowers MD [address] [place] [phone] PCP - Generalmily Medicine05/21/23 Mc Parry DO [address] [place] [address] Referring PhysicianNeurology01/14/25Team MemberRelationshipSpecialtyStart DateEnd Date Florinda Flowers MD [address] [place] [address] [facility] - [facility]23 Mc Parry DO [address] [place] [address] Referring PhysicianNeurology01/14/25Team MemberRelationshipSpecialtyStart DateEnd Date Florinda Flowers MD [address] [place] [address] PCP - Generalmily [facility]05/21/23 Mc Parry DO [address] [place] [address] Referring PhysicianNeurology01/14/25Team MemberRelationshipSpecialtyStart DateEnd Date Florinda Flowers MD [address] [place] [facility] [place] [address] PCP - GeneralFamily Medicine05/21/23 Mc Parry DO [address] [place] [address] Referring PhysicianNeurology01/14/25Team MemberRelationshipSpecialtyStart DateEnd Date Florinda Flowers MD [address] [place] [facility] [place] [address] PCP - Generalmi Medicine05/21/23 Mc Parry DO [address] [place] [address] Referring PhysicianNeurology01/14/25Team MemberRelationshipSpecialtyStart DateEnd Date Florinda Flowers MD [address] [place] [facility] [place] [address] [facility] - [facility]/23 Mc Parry DO [address] [place] [address] Referring PhysicianNeurology01/14/25 Team Status: Inactive Member Role Status Dates Florinda Flowers MD Primary Care Provider Active Start: May 05, 2025 End: May 05ngSilvestre Mckeon ProviderActiveStart: May 05, 2025 End: May 05, 2025Team MemberRelationshipSpecialtyStart DateEnd Date Florinda Flowers MD [address] [place] [facility] [place] [address] PCP - GeneralFami Medicine05/21/23 Mc Parry DO [address] [place] [address] Referring PhysicianNeurology01/14/25Team MemberRelationshipSpecialtyStart DateEnd Date Florinda Flowers MD [address] [place] [facility] [place] [address] PCP - [facility]05/21/23 Mc Parry DO [address] [place] [address] Referring PhysicianNeurology01/14/25Team MemberRelationshipSpecialtyStart DateEnd Date Florinda Flowers MD [address] [place] [facility] [place] [address] PCP - [facility]05/21/23 Mc Parry DO [address] [place] [address] Referring PhysicianNeurology01/14/25 Team Status: Active Member Role/Relationship Status Dates Florinda Flowers MD Primary Care Provider Active Team Status: Active Member Role/Relationship Status Dates Florinda Flowers MD Primary Care Provider Active Start: August 20, 2025 Taylor Muir ProviderActiveStart: August 20, 2025 Team Status: Inactive Member Role/Relationship Status Dates Florinda Flowres MD Primary Care Provider Active Start: August 25, 2025 End: August 25, 2025Taylor Muir ProviderActiveStart: August 25, 2025 End: August 25, 2025Team MemberRelationshipSpecialtyStart DateEnd Date Florinda Flowers MD [address] [place] [facility] [place] [address] PCP - GeneralFamily Medicine05/21/23 BrindaMc [address] [place] [address] Referring PhysicianNeurology01/14/25 Goals (unrecognized section and content) [...] BE BASED ON THE PRIMARY CLINICAL RECORDS. [employer] [facility]. provides no warranty or guarantee of the accuracy or completeness of information in this document.
== END 2025-08-27 11:11 | disposition home or self-care (01) ==
LOC: LAB 11:11
PROVIDERS: PCP Family Medicine; Visit Provider Personal Emergency Response Attendant
DX: M25.50 Pain in unspecified joint (principal); E78.5 Hyperlipidemia, unspecified; I10 Essential (primary) hypertension
CPT/HCPCS: 36415; 80053; 80061; 81374; 83036; 86225; 86235

== ENCOUNTER 2025-08-29 09:32 | Outpatient (REF) | payer MEDICARE, SELFPAY ==
--- OUTSIDE RECORDS SUMMARY | 2025-08-20 09:15 | XMS_ITS | Encounter Summary ---
Author Organization [facility] Address [address] [facility] [place] [address] Care Team Providers Care Disassembler Product Name Role Phone Grace Dyer MD Primary Care Provider [phone] Britni Parry DO Unavailable [phone] Reason for Visit * ReasonCommentsPain Encounter Details DateTypeDepartmentCare Team (Latest Contact Info)Dlyuocbfjte93/17/2025 9:15 AM EDTOffice Visit [facility] [address] [place] [address] Balta Milton PA [address] [facility] [place] [address] Acute right hip pain (Primary Dx); History of total right hip replacement; Right hip pain; Acute pain of left shoulder; Polyarthralgia Social History Tobacco UseTypesPacks/DayYears UsedDateSmoking Tobacco: NeverSmokeless Tobacco: NeverAlcohol UseStandard Drinks/WeekCommentsNot Currently0 (1 standard drink = 0.6 oz pure alcohol)CommentsUnknownSex and Gender InformationValueDate RecordedSex Assigned at BirthNot on fileLegal ZokCknchu18/15/2023 8:13 PM EDT Gender IdentityNot on fileSexual [...] requiring urgent evaluation. Visit was preformed using RegisterPatient speech recognition. documented in this encounter Plan of Treatment DateTypeDepartmentCare Team (Latest Contact Info)Fvwgazomxoa66/31/2025 10:45 AM EDTOffice Visit [facility] [address] [place] [address] Balta Milton PA [address] [facility] [place] [address] NameTypePriorityAssociated DiagnosesOrder ScheduleRheumatoid factorLabRoutine Polyarthralgia [...] NamePriorityDate/TimeAssociated DiagnosisCommentsXR HIP 2 OR 3 VW OKIFIGenuhws42/17/2025 9:28 AM EDT Right hip pain documented [...] DateEnd Date Grace Dyer MD [address] [place] [address] PCP - GeneralFamily Medicine05/21/23 Britni Parry DO [address] [place] [address] Referring PhysicianNeurology01/14/25documented as of this encounter
--- OUTSIDE RECORDS SUMMARY | 2025-08-20 09:30 | XMS_ITS | Encounter Summary ---
Author Organization [facility] Address [address] [facility] [place] [address] Care Team Providers Care Saw Boss Name Role Phone Grace Dyer MD Primary Care Provider [phone] Britni Parry DO Unavailable [phone] Encounter Details DateTypeDepartmentCare Team (Latest Contact Info)Poisdiuoknf07/17/2025 9:30 AM EDTAncillary Procedure [facility] [address] [place] [address] Social History Tobacco UseTypesPacks/DayYears UsedDateSmoking Tobacco: NeverSmokeless Tobacco: NeverAlcohol UseStandard Drinks/WeekCommentsNot Currently0 (1 standard drink = 0.6 oz pure alcohol)CommentsUnknownSex and Gender InformationValueDate RecordedSex Assigned at BirthNot on fileLegal XzzFitchh30/15/2023 8:13 PM EDT Gender IdentityNot on fileSexual OrientationNot on filedocumented as of this encounter Plan of Treatment DateTypeDepartmentCare Team (Latest Contact Info)Rlrqtbfngln04/31/2025 10:45 AM EDTOffice Visit [facility] [address] [place] [address] Balta Milton, PA [address] [place] [address] documented as of this encounter Procedures Procedure NamePriorityDate/TimeAssociated DiagnosisCommentsXR HIP 2 OR 3 VW FDOQQExdtyyi15/17/2025 9:28 AM EDT Right hip pain documented [...] arthroplasty. Authorizing ProviderResult TypeResult StatusMatthew Faizan Milton PAI XR PROCEDURES Final Result documented in this encounter Visit Diagnoses Not on filedocumented in this encounter Care Teams Team MemberRelationshipSpecialtyStart DateEnd Date Grace Dyer MD [address] [facility] [place] [place] [address] PCP - GeneralFamily Medicine05/21/23 Britni Parry DO [address] [place] [address] Referring PhysicianNeurology01/14/25documented as of this encounter
--- OUTSIDE RECORDS SUMMARY | 2025-08-29 09:35 | XMS_ITS | CCD ---
Author Organization [facility] Care Team Providers Care Expediter Service Order Name Role Phone Florinda Flowers Primary Care Provider MD Florinda Flowers Primary Care Provider [phone] ROSA Milton Attending Provider MD Ascencion Ortiz Attending Provider Teetee Rizvi Unavailable MD Florinda Flowers Primary Care Provider [phone] MD Teetee Rizvi Attending Provider [phone] Florinda Flowers Unavailable Unavailable Unavailable Dr. Florinda [...] Unavailable Florinda Flowers MD Primary Care Provider [phone] Mc Parry DO Unavailable Florinda Flowers MD [...] sources)Acetaminophen / oxyCODONE; Translations: [Percocet TABS]Drug Allergy 59-93-5984MQ Upset, GI Disturbance, GI intoleranceAcmc Healthcare System (14 sources)Sulfa Dyne; Translations: [SULFA DYNE]Drug Dusvcuc95-69-3467Petc [facility] (20 sources)fentaNYL; Translations: [FENTANYL]Drug Woeyfuz52-85-5488Huytjpy, Other (See Comments)[facility] Healthcare SystemComment on above:Onset Date: 09/20/2017 (20 sources)terbinafine; Translations: [TERBINAFINE]Drug Tnldxuh17-44-9685Gvhh [facility] ClinicComment on above:Onset Date: 07/29/2017 (8 sources)Penicillins; Translations: [PENICILLINS]Drug Hnyklpv19-15-4765Sgzg [facility] (4 sources)Penicillin VDrug AllergySaint Joseph's Hospital [employer] Other (1 source)sulfaSALAzineDrug AllergyUnkRehabilitation Hospital of [facility] [employer] Other (12 sources)terbinafine; Translations: [Lamisil]Drug Viizsjf13-40-7248AzsijalZvlCity Hospital (7 sources)oxyCODONE; Translations: [oxycodone]Drug Xenexoc44-35-5570JapagrutFirelands Regional Medical Center [facility] (7 sources)Sulfonamides (Antibiotic); Translations: [Sulfa (Sulfonamide Antibiotics)]Allergy to xbxyhykyu21-24-6137ScpbBxzxdgrgqBarney Children's Medical Center (2 sources)Penicillins; Translations: [Penicillins]Allergy to drug (finding)[facility] 600 DO Work Phone: (2 sources)Sulfur; Translations: [Sulfur]Drug AllergyLakeWood Health Center 600 DO Work Phone: (2 sources)Lamisil CREA; Translations: [Lamisil CREA]Allergy to drug (finding) [place] [address] DO Work Phone: (3 sources)SulfonamideDrug allergySaint Joseph's Hospital [employer] Other (8 sources)Penicillin; Translations: [penicillin]Drug AllergySelect [facility] (20 sources)Substance with sulfonamide structure and antibacterial mechanism of action (substance)Drug -55-1028ErgeYuazx [place] [employer] Other (1 source)Acetaminophen / oxyCODONEDrug Svcueya59-00-8106ZdzCommunity Regional Medical Center Rep[facility] (1 source)Sulfonamides (Antibiotic)Drug allergy (disorder)85-31-7619HckCommunity Regional Medical Center Rep[facility] (1 source)terbinafineDrug Vaohhuu39-15-9260FndpiltVapqw [place] [employer] Other (6 sources)Acetaminophen; Translations: [acetaminophen]Drug Xnifcka43-59-0671 [facility] (6 sources)Starch; Translations: [starch]Drug Qjmwhsl94-34-2358AsnnmOnuswezsqSelect Medical [facility] Rehabilitation Hospital, AvonComment on above:Onset Date: 07/29/2017 (6 sources)Talc; Translations: [talc]Drug Hceuojc07-23-3644CnnlfVdiljiltbSelect Medical [facility] Rehabilitation Hospital, AvonComment on above:Onset Date: 07/29/2017 (1 source)fentaNYLDrug Qwynqgh28-49-2220YiuyxgoceClinton Memorial Hospital Rep[facility] (1 source)PenicillinsDrug allergy (disorder)55-59-6084CdxlnttqzClinton Memorial Hospital Rep[facility] (1 source)terbinafineDrug Eslaizg06-37-1958BikmkvlouClinton Memorial Hospital Repository (9 sources)PenicillinsPropensity to adverse reactions to mamu77-70-6984ZwqtNortheast Health System System (18 sources)PenicillinsDrug Havnjyi67-22-9584LwtwJYTV Healthcare Medications Current Medications MedicationDrug Class(es)DatesSig (Normalized)Sig (Original)8 hr acetaminophen 650 mg extended release oral tablet (15 sources)Start: 40-26-1008zjxx 2 tablets by mouth every eight hours as needed take 2 tablets by mouth every eight hourstake 2 tablets by mouth every eight hours as neededAcetaminophen ER 650 MG 2 tablets as needed Orally every 8 hrs ActiveamLODIPine 5 mg oral tablet (20 sources)Dihydropyridine Calcium Channel BlockerStart: 11-30-2024 End: 63-34-0838fdgp 1 tablet by mouth once dailyAmlodipine 5 mg tablet Active 0 .ROUTE .COMPLEX 90 August 25, 2025 11:47am Take 1 tablet by mouth once daily Complies with drug therapyStart: 02-18-2018 End: 35-86-0922pcaz 1 tablet by mouth once dailyAmlodipine 5 mg Tablet Discontinued 5 MG PO Daily July 04, 2022 12:00am May 06, 2024 12:19pm Comment on above:Take 5 mg by mouth.aspirin 81 mg delayed release oral tablet (18 sources)Platelet Aggregation Inhibitor, Nonsteroidal Anti-inflammatory Drug aspirin (Aspirin EC Low Strength) 81 MG EC tablet 1 capsule 1 (one) time each day at the same time Loxofs62 hr buPROPion hydrochloride 150 mg extended release oral tablet (12 sources)AminoketoneStart: 10-05-2024 End: 88-66-2289xcnr 1 tablet by mouth every twenty-four hours in the morning Bupropion Hcl 150 mg tablet extended release 24 hr Active 0 .ROUTE .COMPLEX 90 March 03, 2025 11:52am TAKE 1 TABLET BY MOUTH IN THE MORNING Complies with drug therapyStart: 03-18-2024 End: 14-86-4845zaxu 1 tablet by mouth once daily in the morningBupropion Hcl (Wellbutrin Xl) 150 mg tablet extended release 24 hr Discontinued 150 MG PO Every morning 90 April 08, 2024 12:00pm October 05, 2024 9:45am cholecalciferol 0.05 mg oral capsule (5 sources)Vitamin DStart: 44-94-5491slcy 1 capsule by mouth once dailytake 1 [...] 10 mg oral tablet (7 sources)Muscle RelaxantStart: 32-08-8202kwctcdrxomrgwzh (Flexeril) 10 MG tablet Indications: Other insomnia , Other chronic pain Take 1/2-1at bedtime 30 tablet 2 02/16/2025 Activedoxepin hydrochloride 10 mg oral capsule (14 sources)Tricyclic AntidepressantStart: 33-12-9869rcda 1 capsule by mouth once at bedtimedoxepin (SINEquan) 10 MG capsule Indications: Primary insomnia 1- 2 po q hs 60 capsule 2 01/14/2025 Activedoxycycline hyclate 100 mg oral tablet (4 sources)Tetracycline-class DrugStart: 78-61-7088pezz 1 tablet by mouth twice dailyDoxycycline Hyclate 100 mg tablet Active 100 MG PO Twice daily 14 August 21, 2024 12:00am Complies with drug therapyezetimibe 10 mg / simvastatin 40 mg oral tablet (12 sources)HMG-CoA Reductase Inhibitor, Dietary Cholesterol Absorption InhibitorStart: 78-07-7637fwqx 1 tablet by mouth once dailyezetimibe-simvastatin (VYTORIN) 10-40 mg per tablet Take 1 tablet by mouth nightly. 08/23/2006 Active Comment on above:Take one(1) tablet daily.fluconazole 100 mg oral tablet (7 sources)Azole AntifungalStart: 43-83-8949rvly 1 tablet by mouth every twenty- four hourslidocaine 0.05 mg/mg medicated patch (9 sources)Antiarrhythmic, Amide Local AnestheticStart: 77-68-5135jmtka 1 dose transdermal route once daily as needed for painlidocaine (LIDODERM) 5 % Place 1 patch on the skin daily as needed for pain (pain) for up to 15 doses. Remove & Discard patch within 12 hours or as directed by MD Bhatia patch 07/21/2023 Lwgjqh18 hr metoprolol succinate 50 mg extended release oral tablet (20 sources)beta-Adrenergic BlockerStart: 25-83-2060zkcc 1 tablet by mouth once dailyMetoprolol Succinate 50 mg tablet extended release 24 hr Active 50 MG PO Daily 90 0 August 25, 2025 12:00am Complies with drug therapyStart: 02-18-2018 End: 08-77-0891ugjt 1 tablet by mouth twice dailyMetoprolol Tartrate 25 mg Tablet Discontinued 25 MG PO Twice daily July 04, 2022 12:00am January 16, 2024 4:02pmStart: 26-56-9404YJNIMWOUBZ TARTRATE, SHORT ACTING, 50 mg tablet metoprolol tartrate (Lopressor) 25 MG tablet every 12 (twelve) hours Active multivitamin (THERAGRAN) tablet (9 sources)Start: 85-25-9072ydwr 1 tablet by mouth in the morningmultivitamin (THERAGRAN) tablet Take 1 tablet by mouth in the morning. 10/09/2005 Active Start: 01-45-6492pgaa 1 tablet by mouth in the morningmultivitamin (THERAGRAN) tablet Take 1 tablet by mouth in the morning. 0 10/09/2005 Activeondansetron 4 mg oral tablet (4 sources)Serotonin-3 Receptor Antagonisttake 1 tablet by mouth three times daily as needed for nauseaZofran 4 MG 1 tablet Orally 3 times a day prn nausea ActivepredniSONE 20 mg oral tablet (20 sources)Start: 08-20-2025 End: 25-16-9418ewzi 2 tablets by mouth once daily, then take 1 tablet by mouth once daily at mealtimepredniSONE (Deltasone) 20 MG tablet Indications: Acute right hip pain , Acute pain of left shoulder, Polyarthralgia Take 2 tablets (40 mg) by mouth Daily for 5 days, THEN 1 tablet (20 mg) Daily for 5 days. Take with food. 15 tablet 08/20/2025 08/30/2025 ActiveStart: 09-15-2024 End: 62-26-7812ustl 1 tablet by mouth once dailyPrednisone 5 mg tablet Active 0 .ROUTE .COMPLEX 90 0 July 07, 2025 1:44pm Take 1 tablet by mouth once daily Complies with drug therapyStart: 89-27-5007ghwg 1 tablet by mouth every twelve hourspredniSONE 20 MG 1 tablet Orally 2 times a day for 5 day(s) Sep, ActiveStart: 07-04-2022 End: 56-58-0064afws 1 tablet by mouth once dailyPrednisone 5 mg tablet Discontinued 5 MG PO Daily 30 0 March 12, 2024 12:00am April 10, 2024 9:08am Start: 05-16-4436pcno 2 tablets by mouth once dailypredniSONE 5 MG Oral Tablet TAKE 2 TABLETS BY MOUTH ONCE DAILY OR DIRECTED Quantity: 60 Refills:0 Ordered: 06-Jun-2022 DO Start : 01-Feb-2022 Activerosuvastatin calcium 40 mg oral tablet (20 sources)HMG-CoA Reductase InhibitorStart: 11-17-2024 End: 63-32-1855olti 1 tablet by mouth once dailyRosuvastatin 40 mg tablet Active 0 .ROUTE .COMPLEX 90 February 22, 2025 8:26am Take 1 tablet by mouth once daily Complies with drug therapyStart: 02-15-2018 End: 99-41-3896cana 1 tablet by mouth once dailyRosuvastatin 40 mg Tablet Discontinued 40 MG PO Daily July 04, 2022 12:00am November 17, 2024 3:34pm sod sulf-pot chloride-mag sulf 1.479-0.188- 0.225 gram tablet (10 sources)Start: 93-14-3447wcn sulf-pot chloride-mag sulf 1.479-0.188- 0.225 gram tablet Indications: History of colon polyps Please see instructional sheet given by physicians office. 24 tablet 01/29/2024 ActiveStart: 62-05-3427etw sulf-pot chloride-mag sulf 1.479-0.188- 0.225 gram tablet Indications: History of colon polyps Please see instructional sheet given by physicians office. 24 tablet 0 01/29/2024 ActiveStart: 01-03-2024 End: 40-30-5271ody sulf-pot chloride-mag sulf 1.479-0.188- 0.225 gram tablet Indications: History of colon polyps Please see instructional sheet given by physicians office. 24 tablet 0 01/03/2024 01/29/2024 Discontinued (Duplicate order)Start: 88-59-2406iny sulf-pot chloride-mag sulf 1.479-0.188- 0.225 gram tablet Indications: History of colon polyps Please see instructional sheet given by physicians office. 24 tablet 0 01/03/2024 ActivetraMADol hydrochloride 50 mg oral tablet (9 sources)Opioid AgonistStart: 08-20-2025 End: 69-41-1284cejh 1 tablet by mouth every eight hours for paintraMADol (Ultram) 50 MG tablet Indications: Acute right hip pain , Acute pain of left shoulder , Polyarthralgia Take 1 tablet (50 mg) by mouth every 8 (eight) hours if needed for severe pain for up to 4 days 12 tablet 08/20/2025 08/24/2025 ActiveStart: 05-11-2023 End: 06-99-8760puep 1 tablet by mouth twice daily as [...] mg oral tablet (20 sources)BisphosphonateStart: 07-20-2024 End: 02-72-9810lhfv 1 tablet by mouth every weekAlendronate 70 mg tablet Discontinued 0 .ROUTE .COMPLEX 12 0 September 15, 2024 11:42am September 21, 2024 9:31am TAKE 1 TABLET BY MOUTH ONCE WEEKLY 30 MINUTES BEFORE THE FIRST FOOD, BEVERAGE OR MEDICINE OF THE DAY WITH PLAIN WATERStart: 02-16-2022 End: 17-63-9461fidg 1 tablet by mouth every weekAlendronate 70 mg Tablet Discontinued 70 MG PO every week July 04, 2022 12:00am July 10:20am on Saturdaystart: 18-20-4771VBNZZIZBBHY 70 mg tabletalendronate (FOSAMAX) 70 mg tablet Take 1 tablet (70 mg total) by mouth every 7 days. Active ergocalciferol 2000 unt oral tablet (3 sources)Provitamin D2 CompoundStart: 28-26-9219ioag 1 tablet by mouth once dailyergocalciferol, vitamin D2, 2,000 unit Tab Indications: Personal history of malignant neoplasm of breast , Creatinine elevation Take 1 tablet by mouth once daily. 30 tablet 3 06/09/2013 ActiveComment on above:Take 1 tablet by mouth once daily.hydrALAZINE hydrochloride 50 mg oral tablet (20 sources)Arteriolar VasodilatorStart: 02-17-2024 End: 02-40-5688uldu 1 tablet by mouth once daily at mealtimeHydralazine 50 mg tablet Discontinued 0 .ROUTE .COMPLEX 90 0 February 17, 2024 1:02pm March 12, 2024 11:49am Take 1 tablet by mouth once daily with foodStart: 02-15-2018 End: 90-81-1487cavt 1 tablet by mouth once daily at [...] 160-12.5 mg per tabletMULTIVITAMIN TAB (4 sources)Start: 22-87-6748QJZQBLMLWXAZ TAB Take one(1) tablet daily. 0 10/09/2005 ActiveComment on above:Take one(1) tablet daily.sertraline 50 mg oral tablet (4 sources)Serotonin Reuptake InhibitorStart: 03-12-2024 End: 20-98-9171ftqq 1 tablet by mouth once dailySertraline 50 mg tablet Discontinued 50 MG PO Daily 30 0 March 12, 2024 12:00am March 18, 2024 10:31am tiZANidine 4 mg oral tablet (4 sources)Central alpha-2 Adrenergic AgonistStart: 04-30-2024 End: 74-77-0351zqyx 1 tablet by mouth once daily at bedtime as neededTizanidine 4 mg tablet Discontinued 4 MG PO Daily at bedtime as needed for muscle spasticity 14 0 April 30, 2024 12:00am August 25, 2025 11:50amzolpidem tartrate 10 mg oral tablet (20 sources)gamma-Aminobutyric Acid-ergic AgonistStart: 07-18-2012 End: 34-33-7058efxm 1 tablet by mouth once daily at bedtime as neededZolpidem 10 mg Tablet Discontinued 10 MG PO Daily at bedtime as needed for Insomnia July 04, 2022 12:00am January 16, 2024 4:02pmComment on above:Take 10 mg by mouth once daily. Problems Active Problems Problem ClassificationProblemDateDocumented DateEpisodic/Chronic Administrative/social admission (7 sources)Bereavement; Translations: [Disappearance and of family member] 75-98-5757BitidvxeIsesjgr disorders (4 sources)Anxiety disorder; Translations: [Anxiety disorder, unspecified]Onset: 15-36-9815BqtxdhbZxnfyp of breast (20 sources)Malignant neoplasm of upper-outer quadrant of female breast; Translations: [Malignant neoplasm of upper-outer quadrant of left female breast] Onset: 364286-62-4590OylhddeCpyzvss dysrhythmias (2 sources)Sinus bradycardia; Translations: [Other specified cardiac dysrhythmias]EpisodicChronic kidney disease (20 sources)Chronic kidney disease stage 3A ; Translations: [Chronic kidney disease, stage 3a]ChronicDelirium, dementia, and amnestic and other cognitive disorders (7 sources)Progressive aphasia; 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]17-68-3008Yozvjld Disorders of lipid metabolism (16 sources)Hyperlipidemia; Translations: [Other and unspecified hyperlipidemia] Onset: 72-69-7774YtenzroZukjudwhjx disorders (1 source)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; Translations: [BARRETTS ESOPHAGUS W/O DYSPLASIA]Onset: 53-18-8043IjoptvpJzraqiwho hypertension (20 sources)Essential hypertension; Translations: [Essential (primary) hypertension]Onset: 06-12-2022 Resolved: 35-35-4833OfurieyLmxylovnsjxhs symptoms and ill-defined conditions (4 sources)Hematuria, unspecified; Translations: [Proteinuria, unspecified] Onset: 06-12-2022 Resolved: 43-41-6308JpxtkfgcRscgnegakofue and screening for infectious disease (20 sources)Other specified abnormal immunological findings in serum; Translations: [Contact with and (suspected) exposure to other viral communicable diseases]Onset: 06-12-2022 Resolved: 95-23-5881KgabsbiwCuiftbkucygj diseases of female pelvic organs (4 sources)Acute vaginitis; Translations: [Acute vaginitis]EpisodicInfluenza (5 sources)Influenza due to other identified influenza virus with other respiratory manifestations; Translations: [Influenza due to Influenza A virus with upper respiratory signs]EpisodicJoint disorders and dislocations; trauma-related (18 sources)Derangement of left knee; Translations: [Unspecified internal derangement of left knee]Onset: 140256-04-7175BctmkquMahrkagqxgysu mental health disorders (14 sources)Primary insomnia; Translations: [Primary insomnia]ChronicMood disorders (12 sources)Depressive disorder; Translations: [Depression]99-13-5121Npzawzh Osteoarthritis (20 sources)Unspecified osteoarthritis, unspecified site; Translations: [Osteoarthritis]Onset: 282822-36-9446KpzemkiGxsobantsgfg (6 sources)Primary osteoporosis; Translations: [Age-related osteoporosis without current pathological fracture]96-73-4190NbzordcCawgf aftercare (2 sources)detention (current) use of non-steroidal anti-inflammatories (NSAID) Onset: 06-12-2022 Resolved: 07-65-8071PevxcjsqJxdfh aftercare (1 source)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; Translations: [OTH SECURITY ASSURANCE SPECIALIST CURRENT DRUG THERAPY]Onset: 88-95-2829FbinonfvEynhj circulatory disease (4 sources)Elevated blood-pressure reading without diagnosis of hypertension; Translations: [Elevated blood-pressure reading, without diagnosis of hypertension]EpisodicOther connective tissue disease (1 source)History of repair of hip joint; Translations: [Presence of unspecified artificial hip joint]26-76-1015ZplmakjUidxk connective tissue disease (5 sources)Polymyalgia rheumatica; Translations: [POLYMYALGIA RHEUMATICA]Onset: 32-58-1166FbiestrUamsa connective tissue disease (1 source)Presence of left artificial knee joint; Translations: [PRESENCE LEFT ARTIFICIAL KNEE JOINT]Onset: 99-04-1487TipazvbCqzot connective tissue disease (4 sources)Polymyalgia rheumatica; Translations: [Polymyalgia rheumatica]Chronic Other connective tissue disease (18 sources)Artificial knee joint present; Translations: [Presence of unspecified artificial knee joint]Onset: 705327-24-3381LtpdwbcJkkqs connective tissue disease (20 sources)History of total knee arthroplasty; Translations: [Presence of left artificial knee joint]Onset: 274168-25-1612KumlcciGozov connective tissue disease (2 sources)History of total replacement of right hip joint; Translations: [Presence of right artificial hip joint]28-72-4035EmshtsnRwlir connective tissue disease (4 sources)Neuralgia; Translations: [Neuralgia and neuritis, unspecified] EpisodicOther endocrine disorders (4 sources)Hypoglycemia; Translations: [Hypoglycemia, unspecified]Onset: 54-90-7827NzazhvnKsskp gastrointestinal disorders (4 sources)Abnormal feces; Translations: [Other fecal abnormalities]Episodic Other injuries and conditions due to external causes (4 sources)History of fall; Translations: [History of falling]EpisodicOther lower respiratory disease (4 sources)Cough; Translations: [Cough, unspecified]EpisodicOther nervous system disorders (2 sources)Chronic pain; Translations: [Other chronic pain]42-18-3374Wqunemd Other nervous system disorders (4 sources)Skin sensation disturbance; Translations: [Other disturbances of skin sensation]EpisodicOther nervous system disorders (2 sources)Pseudodementia; Translations: [Other symptoms and signs involving cognitive functions and awareness]40-48-4604QacyzghwBkeup nervous system disorders (3 sources)Word finding difficulty ; Translations: [Other speech disturbances] 48-10-1984FfezsxslVuisy non-traumatic joint disorders (4 sources)Joint pain; Translations: [Pain in unspecified joint]03-19-2024 EpisodicOther non-traumatic joint disorders (2 sources)Pain in left knee; Translations: [Pain in joint, lower leg]11-25-2024 EpisodicOther non-traumatic joint disorders (4 sources)Hip pain; Translations: [Pain in right hip]72-35-8225JrywfoigSzoxt non-traumatic joint disorders (2 sources)Pain in left shoulder; Translations: [Pain in joint, shoulder region] 21-86-1061LxlvgsqwRjmcs non-traumatic joint disorders (4 sources)Multiple joint pain; Translations: [Pain in unspecified joint] 36-96-2829ConomyheVzxiy nutritional; endocrine; and metabolic disorders (4 sources)Obesity; [...] neoplasm of breast; Translations: [Patient encounter status]Onset: 80-50-9408AibrdmgaMrtol skin disorders (4 sources)Mass of scalp; Translations: [Localized swelling, mass and lump, head]17-99-7547CghcpyzzGwzga skin disorders (2 sources)Localized swelling, mass and lump, head; Translations: [Localized superficial swelling, mass, or lump]66-63-3573WyuzkhgzKyvee skin disorders (1 source)Epidermal cyst; Translations: [Epidermal cyst]Onset: 09-02-2024 EpisodicOther upper respiratory infections (4 sources)Chronic sinusitis; Translations: [Chronic sinusitis, unspecified] ChronicRegional enteritis and ulcerative colitis (9 sources)Pseudopolyposis of colon; Translations: [Inflammatory polyps of colon without complications]Onset: 777366-77-8714DffvhhmKzonlaus codes; unclassified (6 sources)Insomnia; Translations: [Other insomnia]35-54-1876ZwchxduJsqyefba codes; unclassified (11 sources)Insomnia; Translations: [Insomnia, unspecified]Onset: 03-08-2014 21-59-0219OodmtgesVzfwnwkd codes; unclassified (4 sources)Memory impairment; Translations: [Other amnesia]14-38-7722Kswbbjpf Residual codes; unclassified (12 sources)Amnesia; Translations: [Other amnesia]24-43-5291HblqutowYwxoflct codes; unclassified (2 sources)Chronic islb22-59-1196PmxmnzssRpusbccovtp; intervertebral disc disorders; other back problems (8 sources)Disorder of sacrococcygeal spine; Translations: [Sacrococcygeal disorders, not elsewhere classified]Onset: 383095-24-1196Vuefpfse Unclassified (3 sources)History of repair of hip joint; Translations: [Hip joint replacement by other means]82-02-4465Jqhgzsswstry (1 source)CONTACT W/AND (SUSP) EXPOS COVID-19; Translations: [CONTACT W/AND (SUSP) EXPOS COVID-19]Onset: 46-19-6574Wvkaqugteebc (1 source)Post-opOnset: 59-11-6571Gdpmxeybmara (1 source)CystOnset: 36-17-7554Aimgybfakmzv (1 source)Colon Cancer ScreeningOnset: 01-03-2024 Past or Other Problems Problem ClassificationProblemDateDocumented DateEpisodic/ChronicAllergic reactions (4 sources)Urticaria, unspecified; Translations: [Urticaria]Onset: 03-08-2014 EpisodicCancer of breast (20 sources)History of malignant neoplasm of breast; Translations: [Personal history of malignant neoplasm of breast]Onset: 820664-13-3831Vflpagtw Chronic kidney disease (3 sources)Chronic kidney diseaseOnset: 06-12-2022 Resolved: 83-05-0511Gazihljn of mouth; excluding dental (4 sources)Disorder of salivary gland; Translations: [Other diseases of salivary glands]Onset: 12-98-3224KqndzofnXpsjchu (9 sources)Candidiasis of skin and nail; Translations: [Tinea cruris]Onset: 32-93-6435XlcsqsaaMpvz wounds of head; neck; and trunk (20 sources)Open wound of anterior abdominal wall with complication; Translations: [Unspecified open wound of abdominal wall, unspecified quadrant without penetration into peritoneal cavity, initial encounter]Onset: 10-01-2005 32-50-6788XjaptqgzNzpim and unspecified benign neoplasm (5 sources)Personal history of colonic polyps; Translations: [PERSONAL HISTORY OF COLONIC POLYPS]Onset: 03-56-5214TwufazdyKehht and unspecified benign neoplasm (1 source)Benign neoplasm of sigmoid colon; Translations: [BENIGN NEOPLASM OF SIGMOID COLON]Onset: 12-34-4552NmqfrnlkNamww and unspecified benign neoplasm (3 sources)History of polyp of colon; Translations: [Personal history of colonic polyps]41-47-2500QwsjlchbNtdlx bone disease and musculoskeletal deformities (4 sources)Bone density finding; Translations: [Other specified disorders of bone density and structure, unspecified site]Onset: 01-60-5196JghtreksOculm non- traumatic joint disorders (9 sources)Pain in right knee; Translations: [Pain in joint, lower leg]Onset: 287137-39-8437ViilauwzTqhox skin disorders (4 sources)Epidermoid cyst; Translations: [Epidermal cyst]34-10-9793Abpilcbp Residual codes; unclassified (1 source)Acquired absence of left breast and nipple; Translations: [ACQUIRED ABSENCE LT BREAST AND NIPPLE]Onset: 75-83-5372HegsacarWlqjgxrz codes; unclassified (1 source)Family history of malignant neoplasm of breast; Translations: [FAMILY HX MALIG NEOPLASM OF BREAST]Onset: 36-10-8775RkjmobiuDazqkwkd codes; unclassified (1 source)Family history of malignant neoplasm of ovary; Translations: [FAM HX MALIGNANT NEOPLASM OVARY]Onset: 12-90-0544YlkyneaqVjijprla codes; unclassified (1 source)Family history of malignant neoplasm of other genital organs; Translations: [FAM HX MALIG NEOPLSM OT GENIT ORGN]Onset: 89-50-8100Ahfjkdqz Residual codes; unclassified (4 sources)Postmenopausal state; Translations: [Asymptomatic menopausal state] Onset: 03-86-5268IveyqjriVpmgqiwn codes; unclassified (4 sources)Family history of breast cancer; Translations: [Family history of malignant neoplasm of breast]Onset: 64-91-8424ViarmwzqKwoperikt and history of mental health and substance abuse codes (3 sources)Ex-smoker; Translations: [Personal history of tobacco use]Onset: 03-40-1703Lvtknahp Results Test NameValueInterpretationReference RangeFacilityALL CBC WITH AUTO DIFFon 71-79-2258AATIBKTMS ABSOLUTE AUTO0.0NONY HealthcareBasophils/100 WBC (Bld)0.5 % 0.2 - 2.0 %NOMOzarks Community HospitalEosinophils/100 WBC (Bld)1.3 %0.9 - 7.0 %[facility] SystemErythrocyte distribution width (RBC) [Ratio]14.0 %11.0 - 15.0 %NOMOzarks Community HospitalHematocrit (Bld) [Volume fraction]41.1 %36.0 - 48.0 %[facility] Hemoglobin (Bld) [Mass/Vol]13.4 g/dL12.0 - 16.0 g/dLSaint Luke's Health SystemIMMATURE GRANULOCYTES ABS AUTO0.02NORipley County Memorial HospitalImmature granulocytes/100 WBC (Bld)0.2 % 0.0 - 0.5 %[facility] SystemInterpretation and review of laboratory results AbnormalNORipley County Memorial HospitalLYMPHOCYTES ABSOLUTE AUTO1.4NORipley County Memorial Hospital Lymphocytes/100 WBC (Bld)16.4 %Low20.5 - 60.0 %[facility]onH (RBC) [Entitic mass]30.1 pg26.7 - 34.0 pgFulton Medical Center- FultonHC (RBC) [Mass/Vol]32.6 g/dL29.9 - 35.2 g/dLFulton Medical Center- FultonV (RBC) [Entitic vol]92.4 fL81.0 - 99.0 fLSaint Luke's Health SystemMONOCYTES ABSOLUTE AUTO0.7NORipley County Memorial HospitalMonocytes/100 WBC (Bld)8.4 % 1.7 - 12.0 %[facility] SystemNEUTROPHILS ABSOLUTE AUTO6.1NOMS [facility] Neutrophils/100 WBC (Bld)73.2 %43.0 - 75.0 %[facility] SystemPlatelet mean volume (Bld) [Entitic vol]10.2 fL9.5 - 13.5 fLSaint Luke's Health SystemTBH EO #0.1NOMS Healthcare TBH [id number] [facility] RBC4.45NOMS [facility] HospitalTB WBC8.3NORipley County Memorial Hospital CLINISYNCNONY HealthcareBasophils Auto (Bld) [#/Vol]Ordered By: Florinda Flowers on 83-10-4075Wgrrxtypy (Bld) [#/Vol]0.0 10 3/uL0.0-0.1FSelect Medical Specialty Hospital - Cincinnati NorthBasophils/100 WBC Auto (Bld)Ordered By: Florinda Flowers on 08-20-2025 Basophils/100 WBC (Bld)0.5 %0.2-2.0[facility] HospitalBorrelia burgdorferi IgG+IgM Ab [Presence] in Serum by ImmunoassayOrdered By: Ryan Milton on 08-20-2025. burgdorferi IgG+IgM IA Ql (S)NegativeNegativeClinton Memorial HospitalComment on above:Lyme antibodies not detected. Reflex testing is notindicated.No laboratory evidence of infection with B. burgdorferi(Lyme disease). Negative results may occur in patientsrecently infected (less than or equal to 14 days) with B.burgdorferi. If recent infection is suspected, repeattesting on a new sample collected in 7 to 14 days isrecommended.Performed at: [facility] [employer] [id number] Director: Cody Williamson PhD, Phone: [phone] Ab [Titer] in Serum by ImmunofluorescenceOrdered By: Ryan Milton on 08-20-2025 Centriole Ab IF (S) [Titer][facility] HealthCentromere Ab [Titer] in Serum by ImmunofluorescenceOrdered By: Ryan Milton on 08-20-2025 Centromere Ab IF (S) [Titer][facility]ma HealthEosinophils/100 WBC Auto (Bld)Ordered By: Florinda Flowers on 39-01-7608Qrboobvoqnt/100 WBC (Bld) 1.3 %0.9-7.0[facility] HospitalErythrocyte distribution width Auto (RBC) [Ratio]Ordered By: Florinda Flowers on 69-97-3650Deunkajkwqr distribution width (RBC) [Ratio]14.0 %11.0-15.0[facility] HospitalHematocrit Auto (Bld) [Volume fraction]Ordered By: Florinda Flowers on 32-27-5500Pjnrysmxiz (Bld) [Volume fraction]41.1 %36.0-48.0[facility] Hemoglobin [Mass/volume] in BloodOrdered By: Florinda Flowers on 08-20-2025 Hemoglobin (Bld) [Mass/Vol]13.4 g/dL12.0-16.0[facility] - Chemistry and Chemistry - challengeOrdered By: Ryan Milton on 01-87-4504Hhyhw [Mass/Vol]5.2 mg/dL2.6-6.0[facility] - Hematology and Cell countsOrdered By: Ryan Milton on 08-20-2025 ESR (Bld) [Velocity]44 mm/hHigh<=30[facility] HospitalLaboratory - Hematology and Cell countsOrdered By: Florinda Flowers on 31-98-2340Gusfgrzj granulocytes/100 WBC (Bld)0.2 %0.0-0.5FSelect [facility]ty [facility] Leukocytes [#/volume] corrected for nucleated erythrocytes in Blood by Automated counOrdered By: Florinda Flowers on 07-03-7251ZDQ corrected for nucl RBC Auto (Bld) [#/Vol]8.3 10 3/uL4.0-11.0[facility] HospitalLymphocytes Auto (Bld) [#/Vol]Ordered By: Florinda Flowers on 28-00-0513Leqhtvhesbl (Bld) [#/Vol]1.4 10 3/uL1.2-3.8[facility] HospitalLymphocytes/100 WBC Auto (Bld) Ordered By: Florinad Flowers on 20-06-2113Rkkybjlgcbp/100 WBC (Bld)16.4 %Low 20.5-60.0[facility] Auto (RBC) [Entitic mass]Ordered By: Florinda Flowers on 83-60-4307VFL (RBC) [Entitic mass]30.1 pg26.7-34.0[facility] HospitalHC Auto (RBC) [Mass/Vol]Ordered By: Florinda Flowers on 25-27-1014XCWH (RBC) [Mass/Vol]32.6 g/dL29.9-35.2FSelect Medical Specialty Hospital - Cincinnati NorthMCV Auto (RBC) [Entitic vol]Ordered By: Florinda Flowers on 06-47-5202CXT (RBC) [Entitic vol]92.4 fL81.0-99.0[facility] HospitalMidbody Ab [Titer] in Serum by ImmunofluorescenceOrdered By: Ryan Milton on 08-20-2025 Midbody Ab IF (S) [Titer]TNP.[facility] HospitalMitotic spindle apparatus Ab [Titer] in Serum or Plasma by ImmunofluorescenceOrdered By: Ryan Milton on 93-22-6526Vxhzhra spindle apparatus Ab IF [Titer]TNP.[facility] HospitalMonocytes Auto (Bld) [#/Vol]Ordered By: Florinda Flowers on 04-80-2307Zotehaxwd (Bld) [#/Vol]0.7 10 3/uL0.3-0.8[facility] HospitalMonocytes/100 WBC Auto (Bld)Ordered By: Florinda Flowers on 08-20-2025 Monocytes/100 WBC (Bld)8.4 %1.7-12.0[facility] HospitalNeutrophils Auto (Bld) [#/Vol]Ordered By: Florinda Flowers on 32-41-8407Rabdoadpfnd (Bld) [#/Vol]6.1 10 3/uL1.4-6.5FSelect Medical Specialty Hospital - Cincinnati NorthNeutrophils/100 WBC Auto (Bld)Ordered By: Florinda Flowers on 64-47-4158Oqakrqrslqi/100 WBC (Bld)73.2 % 43.0-75.0[facility] HospitalNo Panel InformationOrdered By: Ryan Milton on 95-79-4617Fhuv-Nuclear Antibody Comment 2Comment.[facility] HospitalComment on above:Pattern Potential Disease Association Homo geneous Systemic Lupus Erythematosus, Drug Induced Systemic Lupus Erythematosus, Chronic Autoimmunehepatitis, Juvenile Idiopathic Arthritis Speckled Sjogren Syndrome, Systemic Lupus Erythematosus, Subacute Cutaneous Lupus, Lupus, Congenital Heart Block, Mixed Connective Tissue Disease, Scleroderma-diffuse, Scleroderma- Autoimmune Myositis Overlap Syndrome, Systemic Lupus Zidwexcpltayf-Wlcwbqpoixj-Mfeqtozjov Myositis Overlap Syndrome, Systemic Autoimmune Rheumatic Disease, [...] Cytopenias, Linear Scleroderma, Antiphospholipid Syndrome Performed at: [facility] - [address] [place], [place] [id number] Director: Cody Williamson PhD, Phone: [phone]-Rgjivorf Protein, Quantitative<0.50 mg/dL <=0.50[facility] HospitalMiscellaneous TestCOMMENT.[facility] HospitalComment on above:Test Ordered: [id number] Ceron AntibodiesSmith Antibodies <0.2 AI CB Reference Range: 0.0-0.9Performed at: - [id number] [place], [place] [id number] Director: Cody Williamson PhD,Phone: [phone] Panel InformationOrdered By: Florinda Flowers on 99-83-5909Eslmtgrfdty # (Auto)0.1 10 3/uL0.0-0.7FSelect Medical Specialty Hospital - Cincinnati NorthImmature Granulocyte # (Auto)0.02 10 3/uL0.00-0.03[facility] HospitalNuclear dots nuclear Ab pattern [Titer] in Serum by ImmunofluorescenceOrdered By: Ryan Milton on 24-10-1415Ficckeo dots nuclear Ab pattern IF (S) [Titer]TNP.[facility] HospitalNuclear membrane pores nuclear Ab pattern [Titer] in Serum by ImmunofluorescenceOrdered By: Ryan Milton on 89-25-7286Laqoyfe membrane pores nuclear Ab pattern IF (S) [Titer]TNP.[facility] HospitalPCNA extractable nuclear Ab [Titer] in Serum by ImmunofluorescenceOrdered By: Ryan Milton on 75-42-8728URMO extractable nuclear Ab IF (S) [Titer]TNP.[facility] Platelet mean volume Auto (Bld) [Entitic vol]Ordered By: Florinda Flowers on 90-94-8668Rguzhafr mean volume (Bld) [Entitic vol]10.2 fL9.5-13.5FSelect Medical Specialty Hospital - Cincinnati NorthPlatelets Auto (Bld) [#/Vol]Ordered By: Florinda Flowers on 56-18-1576Fbjgciqes (Bld) [#/Vol]278 10 3/nC007-210OcrgvtuejClinton Memorial HospitalRBC Auto (Bld) [#/Vol]Ordered By: Florinda Flowers on 68-77-9195LKQ (Bld) [#/Vol]4.45 10 6/uL4.20-5.40[facility] Hospitalerum homogeneous pattern antinuclear antibody (WADE) titerOrdered By: Ryan Milton on 08-20-2025 Homogenous nuclear Ab pattern (S) [Titer]1:640Abnormal.[facility] HospitalComment on above:ICAP nomenclature: AC-1Serum nuclear antibody titerOrdered By: Ryan Milton on 68-67-5016Mrforel Ab (S) [Titer]Positive Abnormal.[facility] HospitalComment on above:Negative <1:80 Borderline 1:80 Positive >1:80Serum nucleolar pattern antinuclear antibody (WADE) titerOrdered By: Ryan Milton on 44-42-8621Bigrrmlzt nuclear Ab pattern (S) [Titer]TNP.[facility] Hospitalerum or plasma rheumatoid factor measurement (units/volume)Ordered By: Ryan Milton on 32-29-5760Uecucmqvze factor Qn12.1 [IU]/mL<14.0[facility] HospitalComment on above: Performed at: [address] [id number] Director: Cody Williamson PhD, Phone: [phone] speckled pattern antinuclear antibody (WADE) titerOrdered By: Ryan Milton on 51-19-3833Qpcpctfi nuclear Ab pattern (S) [Titer]TNP.[facility] HospitalXR Hip - right 3 Viewson 57-15-1627Dwgiyhw Result: AP and Lateral Right hip: AP [...] dislocation. Impression: Unremarkable right total hip arthroplasty. [facility] HealthcareRadiology Study observation (narrative)[facility] SystemSurgical Pathologyon 09-43-1479ThlFqdjuiKettering Health Main CampusLon 09-08-2024L Specimen: [id number] Received: 09/09/24 Status: NASIR Westbrook Num: [id number] Spec Type: Surgical Subm Dr: Rehana Reinoso DO Tissues: A Skin Cyst (LT POSTERIOR SCALP CYST) Procedures: , Gross/Micro L3 Age/ Patient Sex Location Account Attending Physician Uzma Ramirez 68/F [place] [id number] Rehana Reinoso DO SPEC NUM: [id number] RECD: 09/09/24 STATUS: NASIR WESTBROOK NUM: [id number] MARIBELL: 09/08/[address] [facility] [address]: Rehana Reinoso DO ENTERED: 09/09/[address] [facility] [address]: Kenneth Sanon SPEC TYPE: Surgical DEPT: FLIP FRANZ ENTERED BY: [id number] RECV BY: [id number] ORDERED: , Gross/Micro L3 ORDERED: , Gross/Micro [...] Central aspect of smaller specimen (For, jenny, B21-115 A)KAT Specimen: [id number] Received: 09/09/24 Status: NASIR Westbrook Num: [id number] Spec Type: Surgical Subm Dr: Rehana Reinoso DO Tissues: A Skin Cyst (LT POSTERIOR SCALP CYST) Procedures: /4, Gross/Micro L3 Patient: Uzma Ramirez [id number] (Continued) Specimen: [id number] Received: 09/09/24 (Continued) Signed (signature on file) Andreas Meier MD 09/10/24 1711 Specimen: [id number] Received: 09/09/24 Status: NASIR Clau Num: [id number] Spec Type: Surgical Subm Dr: Rehana Reinoso,DO Tissues: A Skin Cyst (LT POSTERIOR SCALP CYST) Procedures: EARL/Deondre, Gross/Micro L3 Patient: Uzma Ramirez [id number] (Continued) Specimen: [id number] Received: 09/09/24 (Continued) CPT Codes 52222 Specimen: [id number] Received: 09/09/24 Status: NASIR Westbrook Num: [id number] Spec Type: Surgical Subm Dr: Rehana Reinoso DO Tissues: A Skin Cyst (LT POSTERIOR SCALP CYST) Procedures: Eddie PASCAL/Luisana L3 Patient: Uzma Ramirez [id number] (Continued) Signed (signature on file) Andreas Meier MD 09/10/[address] [place] [address] Physician GroupUnlisted Non-[facility] Procedure on 17-68-0371YpbTrcbui Health SystemColonoscopyon 06-44-0912WkwEhxihe [facility] 32-86-7677QQwefxlho: [id number] Received: 02/05/24 Status: NASIR Coradoq Num: [id number] Spec Type: Surgical Subm Dr: Rehana Reinoso DO Tissues: A Colon Biopsy (SIGMOID POLYP) B Colon Biopsy (CECUM) C Colon Biopsy (DESC) D Colon Biopsy (RECTAL SIGMOID JUNCTION) Procedures: HE/8, Gross/Micro L4/4 Age/ Patient Sex Location Account Attending Physician Uzma Ramirez 68/F LABE[facility] [id number] Rehana Reinoso DO SPEC NUM: [id number] RECD: 02/05/24 STATUS: NASIR WE[place]BROOK NUM: [id number] MARIBELL: 02/05/24 DR: Rehana Reinoso DO ENTERED: 02/05/[address] [facility] [address]: Kenneth Sanon SPEC TYPE: Surgical [...] also provided B, cecum polyp polypectomy: Specimen: [id number] Received: 02/05/24 Status: NASIR Westbrook Num: [id number] Spec Type: Surgical Subm Dr: Rehana Reinoso DO Tissues: A Colon Biopsy (SIGMOID POLYP) B Colon Biopsy (CECUM) C Colon Biopsy (DESC) D Colon Biopsy (RECTAL SIGMOID JUNCTION) Procedures: /Gilberto, Gross/Micro L4/4 Patient: Uzma Ramirez [id number] (Continued) Specimen: [id number] Received: 02/05/24 (Continued) Pathological Diagnosis (Continued) Signed (signature on file) Tamiko Antony MD 02/08/24 1856 Specimen: [id number] Received: 02/05/24 Status: NASIR [place]brook Num: [id number] Spec Type: Surgical Subm Dr: Rehana Reinoso,DO Tissues: A Colon Biopsy (SIGMOID POLYP) B Colon Biopsy (CECUM) C Colon Biopsy (DESC) D Colon Biopsy (RECTAL SIGMOID JUNCTION) Procedures: HE/8, Gross/Micro L4/4 Patient: Uzma Ramirez [id number] (Continued) Specimen: [id number] Received: 02/05/24 (Continued) Pathological Diagnosis (Continued) -Tubular [...] totally submitted in cassette D1. CPT Codes 64325 x 4 Specimen: [id number] Received: 02/05/24 Status: NASIR [place]brook Num: [id number] Spec Type: Surgical Subm Dr: Rehana Reinoso DO Tissues: A Colon Biopsy (SIGMOID POLYP) B Colon Biopsy (CECUM) C Colon Biopsy (DESC) D Colon Biopsy (RECTAL SIGMOID JUNCTION) Procedures: Eddie BACA/Luisana L4/4 Patient: Uzma Ramirez [id number] (Continued) (more content not included)...NormalThe [facility] Surgical PathologyOrdered By: Katherine Rubio on 26-02-6345FadYxeluoKettering Health Main CampusANTICARDIOLIPIN AB (AKASH) IGA/IGG/IGMon 41-94-3742Onhlledhklohjyd Ab,IgA,Qn <5Ochqey0-05Mun [facility] HospitalComment on above:Result Comment: Negative: <12 Indeterminate: 12 - 20 Low-Med Positive: >20 - 80 High Positive: >80Performed By: #### ACAQUAN #### [facility] [address] [place] [address] Dr. Myrna AntonyAnticardiolipin Ab,IgG,Qn<9Suytcy1-65Sbw [facility] HospitalComment on above:Result Comment: Negative: <15 Indeterminate: 15 - 20 Low-Med Positive: >20 - 80 High Positive: >80Performed By: #### ACAQUAN #### [facility] [address] [address] [address] Myrna AntonyAnticardiolipin Ab,IgM,Qn22 MPL U/mLCritically high0-12The [facility] HospitalComment on above:Result Comment: Negative: <13 Indeterminate: 13 - 20 Low-Med Positive: >20 - 80 High Positive: >80Performed By: #### ACAQUAN #### [facility] [address] [place] [address] Dr. Myrna Cardozo 46-60-2214OSC [Mass/Vol]mg/LNormal<=1.0The [facility] Valley HospitalComment on above:Performed By: #### CRP #### [facility] [address] [place] [address] Dr. Myrna AntonySED RATE WESTERGRENon 38-93-9437LQU RATE32 mm/hrCritically high <=30The [facility] HospitalComment on above:Performed By: #### ACAQUAN #### [facility] [address] [place] [address] Dr. Myrna AntonyCBC AUTO DIFFon 65-78-6075NGHP #0.0 103/ulNormal0.0-0.1The [facility] HospitalComment on above:Performed By: #### CBC #### [facility] [address] [place] [address] Dr. Myrna AntonyBasophils/100 WBC (Bld)0.5 %Normal0.2-2.0The [facility] Comment on above:Performed By: #### CBC #### [facility] [address] [place] [address] Dr. Myrna Ramachandran #0.3 103/ulNormal0.0-0.7The [facility] HospitalComment on above: Performed By: #### CBC #### [facility] [address] [place] [address] Dr. Myrna Rodriguezosinophils/100 WBC (Bld)3.9 %Normal0.9-7.0The [facility] Comment on above:Performed By: #### CBC #### [facility] [address] [place] [address] Dr. Myrna Rodriguezrythrocyte distribution width (RBC) [Ratio]13.6 %Orxheh55.0-15.0 The [facility] HospitalComment on above:Performed By: #### CBC #### [facility] [address] [place] [address] Dr. Myrna AntonyHematocrit (Bld) [Volume fraction]40.4 %Envaga25.0-48.0The [facility] HospitalComment on above:Performed By: #### CBC #### [facility] [address] [place] [address] Dr. Myrna AntonyHemoglobin (Bld) [Mass/Vol]13.5 g/tAPfcdfu49.0-16.0The [facility] HospitalComment on above:Performed By: #### CBC #### [facility] [address] [place] [address] Dr. Myrna Adams #0.02 10e3/ulNormal0.00-0.03The [facility] HospitalComment on above:Performed By: #### CBC #### [facility] [address] [place] [address] Dr. Myrna Adams %0.2 %Normal0.0-0.5The [facility] HospitalComment on above: Performed By: #### CBC #### [facility] [address] [place] [address] Dr. Myrna Huddleston #1.5 103/ulNormal1.2-3.8The [facility] HospitalComment on above:Performed By: #### CBC #### [facility] [address] [place] [address] Dr. Myrna Kennedyhocytes/100 WBC (Bld)19.2 %Critically low20.5-60.0The [facility] HospitalComment on above:Performed By: #### CBC #### [facility] [address] [place] [address] Dr. Myrna Dueñas DIFF REQNONormalThe [facility] HospitalComment on above: Performed By: #### CBC #### [facility] [address] [place] [address] Dr. Myrna Mccarty (RBC) [Entitic mass]29.7 wfFqegbi01.7-34.0The [facility] HospitalComment on above:Performed By: #### CBC #### [facility] [address] [place] [address] Dr. Myrna Horton (RBC) [Mass/Vol]33.4 g/hYTbzarw13.9-35.2The [facility] HospitalComment on above:Performed By: #### CBC #### [facility] [address] [place] [address] Dr. Myrna Sutherland (RBC) [Entitic vol]89.0 aBWsqaoc48.0-99.0The [facility] HospitalComment on above:Performed By: #### CBC #### [facility] [address] [place] [address] Dr. Myrna Olivares #0.8 103/ulNormal0.3-0.8The [facility] HospitalComment on above:Performed By: #### CBC #### [facility] [address] [place] [address] Dr. Myrna Trammellocytes/100 WBC (Bld)10.2 %Normal1.7-12.0The [facility] Comment on above:Performed By: #### CBC #### [facility] [address] [place] [address] Dr. Myrna Noriega #5.3 103/ulNormal1.4-6.5The [facility] HospitalComment on above:Performed By: #### CBC #### [facility] [address] [place] [address] Dr. Myrna Kingutrophils/100 WBC (Bld)66.0 %Dxjgcr27.0-75.0The [facility] HospitalComment on above:Performed By: #### CBC #### [facility] [address] [place] [address] Dr. Myrna AntonyPlatelet mean volume (Bld) [Entitic vol]9.2 fLCritically low 9.5-13.5The [facility] HospitalComment on above:Performed By: #### CBC #### [facility] [address] [place] [address] Dr. Myrna AntonyPLT277 103/kgAluvqh287-230Sov [facility] HospitalComment on above: Performed By: #### CBC #### [facility] [address] [place] [address] Dr. Myrna AntonyRBC4.54 106/ulNormal4.20-5.40The [facility] HospitalComment on above:Performed By: #### CBC #### [facility] [address] [place] [address] Dr. Myrna AntonyWBC8.0 103/ulNormal4.0-11.0The [facility] HospitalComment on above: Performed By: #### CBC #### [facility] [address] [place] [address] Dr. Myrna AntonyLIPID PROFILEon 06-49-2299IDDP-HDL RATIO NORMSEE BELOWRiverview Health InstituteComment on above:Result Comment: 3.3 - 4.4 LOW RISK 4.4 - 7.1 AVERAGE RISK 7.1 - 11.0 MODERATE RISK >11.0 HIGH RISKPerformed By: #### ACAQUAN #### [facility] [address] [address] [address] Myrna AntonyCholesterol [Mass/Vol]192 mg/dLNormal<=200[facility] Comment on above:Performed By: #### ACAQUAN #### [facility] [address] [address] [address] Myrna AntonyCholesterol in HDL [Mass/Vol]69 mg/dLCritically heqv15-22KfuCommunity Regional Medical CenterComment on above:Performed By: #### ACAQUAN #### [facility] [address] [place] [address] Dr. Myrna AntonyCholesterol in LDL [Mass/Vol]99.8 mg/dLRiverview Health InstituteComment on above:Performed By: #### ACAQUAN #### [facility] [address] [place] [address] Dr. Myrna AntonyCholestermayra.total/Cholesterol in HDL [Mass ratio]2.8 {ratio} NormalCommunity Regional Medical CenterComment on above:Performed By: #### ACAQUAN #### [facility] [address] [place] [address] Dr. Myrna AntonyHDJt NORMAL> or = 60 mg/dl - LOW CARDIOVASCULAR RISK <40 mg/dl - HIGH CARDIOVASCULAR RISKRiverview Health InstituteComment on above:Performed By: #### ACAQUAN #### [facility] [address] [place] [address] Dr. Myrna AntonyLDL CALC NORMALSEE BELOWRiverview Health InstituteComment on above:Result Comment: <100 mg/dl OPTIMAL 100 - 129 mg/dl NEAR OR ABOVE OPTIMAL 130 - 159 mg/dl BORDERLINE HIGH 160 - 189 mg/dl HIGH >190 mg/dl VERY HIGH Performed By: #### ACAQUAN #### [facility] [address] [place] [address] Dr. Myrna AntonyTriglyceride [Mass/Vol]116 mg/dLNormal<=150[facility] Comment on above:Performed By: #### ACAQUAN #### [facility] [address] [address] [address] Myrna AntonyVLDL CALC23.2 mg/dLNormalThe [facility] HospitalComment on above: Performed By: #### ACAQUAN #### [facility] [address] [address] [address] Myrna AntonyPROF 14(COMP METB)on 66-33-9717Cmdnyfw [Mass/Vol]3.9 g/dLNormal 3.4-5.0The [facility] HospitalComment on above:Performed By: #### ACAQUAN #### [facility] [address] [address] [address] Myrna AntonyAlbumin/Globulin [Mass ratio]1.1 {ratio}NormalThe [facility] HospitalComment on above:Performed By: #### ACAQUAN #### [facility] [address] [place] [address] Dr. Myrna BullockP [Catalytic activity/Vol]57 U/RHbpspg40-421Kua [facility] HospitalComment on above:Performed By: #### ACAQUAN #### [facility] [address] [address] [address] Myrna Oliver [Catalytic activity/Vol]39 U/LVujtwj33-77Bhg [facility] HospitalComment on above:Performed By: #### ACAQUAN #### [facility] [address] [place] [address] Dr. Myrna Neville gap [Moles/Vol]12.7 mmol/LNormalThe [facility] Comment on above:Performed By: #### ACAQUAN #### [facility] [address] [place] [address] Dr. Myrna AntonyAST [Catalytic activity/Vol]32 U/GRhsxij07-62Oxs [facility] HospitalComment on above:Performed By: #### ACAQUAN #### [facility] [address] [address] [address] Myrna AntonyBilirubin [Mass/Vol]1.4 mg/dLCritically high0.2-1.0The [facility] HospitalComment on above:Performed By: #### ACAQUAN #### [facility] [address] [address] [address] Myrna AntonyCalcium [Mass/Vol]9.6 mg/dLNormal8.5-10.1The [facility] Comment on above:Performed By: #### ACAQUAN #### [facility] [address] [address] [address] Myrna AntonyChloride [Moles/Vol]103 mmol/KMbwest94-892Ulr [facility] Comment on above:Performed By: #### ACAQUAN #### [facility] [address] [address] [address] Myrna AntonyCO2 [Moles/Vol]26.5 mmol/JNkdjey68.0-32.0The [facility] Comment on above:Performed By: #### ACAQUAN #### [facility] [address] [address] [address] Myrna AntonyCreatinine [Mass/Vol]1.06 mg/dLCritically high0.55-1.02[facility] CenterComment on above:Performed By: #### ACAQUAN #### [facility] [address] [address] [address] Norris ChangEGFR-AF TUNISIAN>60Normal>=60The [facility] HospitalComment on above:Performed By: #### ACAQUAN #### [facility] [address] [address] [address] Myrna RodriguezGFR-NON AF LXQHVSKT18 mL/min/1.60x2Fxycdvitbi low>=60The [facility] HospitalComment on above:Performed By: #### ACAQUAN #### [facility] [address] [address] [address] Myrna AntonyGlobulin (S) [Mass/Vol]3.6 g/dLNormalThe [facility] HospitalComment on above:Performed By: #### ACAQUAN #### [facility] [address] [address] [address] Myrna AntonyGlucose [Mass/Vol]104 mg/bQZwdncd11-347Ldm [facility] Comment on above:Performed By: #### ACAQUAN #### [facility] [address] [address] [address] Myrna AntonyPotassium [Moles/Vol]4.2 mmol/LNormal3.5-5.1The [facility] Comment on above:Performed By: #### ACAQUAN #### [facility] [address] [address] [address] Myrna AntonyProtein [Mass/Vol]7.5 g/dLNormal6.4-8.2The [facility] Comment on above:Performed By: #### ACAQUAN #### [facility] [address] [place] [address] Dr. Myrna AntonySodium [Moles/Vol]138 mmol/FVaheez978-402Xvn [facility] Comment on above:Performed By: #### ACAQUAN #### [facility] [address] [place] [address] Dr. Myrna AntonyUrea nitrogen [Mass/Vol]29.0 mg/dLCritically high7.0-18.0[facility] CenterComment on above:Performed By: #### ACAQUAN #### [facility] [address] [place] [address] Dr. Myrna Lawson nitrogen/Creatinine [Mass ratio]27.4 mg/mgNormalThe [facility] HospitalComment on above:Performed By: #### ACAQUAN #### [facility] [address] [place] [address] Dr. Myrna AntonyCovid-19 PCR ([facility])on 30-43-1283RBLF-CoV-2 (COVID-19) RNA NEO+probe Ql (Unsp spec)Not detectedNormalNOT DETECTEDThe [facility] Comment on above:Result Comment: This test is not yet approved or cleared by the [place] FDA. When there are no FDA-approved or cleared tests available, and other criteria are met, FDA can make tests available under an emergency access mechanism called an Emergency Use Authorization (EUA). The EUA for this test is supported by the Field Service Tech of Health and Human Service's (HHS's) declaration [...] consistent with SARS-CoV-2.Performed By: #### CVDTBH #### [facility] [address] [place] [address] Dr. Myrna AntonyANTICARDIOLIPIN AB (AKASH) IGA/IGG/IGMon 31-66-0388Pfsllavdhomlnee Ab,IgA,Qn<8Touaoi1-09KygKettering Memorial Hospitalment on above:Result Comment: Negative: <12 Indeterminate: 12 - 20 Low-Med Positive: >20 - 80 High Positive: >80Performed By: #### ACAQUAN #### [facility] [address] [place] [address] Dr. Myrna AntonyAnticardiolipin Ab,IgG,Qn<3Wlijjf7-04Wpg [facility] HospitalComment on above:Result Comment: Negative: <15 Indeterminate: 15 - 20 Low-Med Positive: >20 - 80 High Positive: >80Performed By: #### ACAQUAN #### [facility] [address] [place] [address] Dr. Myrna AntonyAnticardiolipin Ab,IgM,Qn57 MPL U/mLCritically high0-12The [facility] Hospitalment on above:Result Comment: Negative: <13 Indeterminate: 13 - 20 Low-Med Positive: >20 - 80 High Positive: >80Performed By: #### ACAQUAN #### [facility] [address] [place] [address] Dr. Myrna Cardozo 40-77-8829NTW [Mass/Vol]mg/LNormal<=1.0The [facility] Hospitalment on above:Performed By: #### CRP #### [facility] [address] [address] [address] Myrna Anders RATE WESTERGRENon 38-26-6124FPI RATE39 mm/hrCritically high <=30The [facility] HospitalComment on above:Performed By: #### SEDR #### [facility] [address] [place] [address] Dr. Myrna AntonyCOVID/FLU RT-PCRon 79-72-0277GCKV-CoV-2 (COVID-19) RNA NEO+probe Ql (Unsp spec)NegativeNosaint john's bree[facility] [employer] Other COVID/FLU RT-PCRPositiveMedManage Systems Other COVID/FLU RT-PCRNegativeMedManage Systems Other LIPID PROFILEon 47-06-1938HZPH-HDL RATIO NORMSEE BELOW NormalThe [facility] on above:Result Comment: 3.3 - 4.4 LOW RISK 4.4 - 7.1 AVERAGE RISK 7.1 - 11.0 MODERATE RISK >11.0 HIGH RISKPerformed By: #### ACAQUAN #### [facility] [address] [place] [address] Dr. Myrna Ramosesterol [Mass/Vol]177 mg/dLNormal<=200The [facility] Comment on above:Performed By: #### ACAQUAN #### [facility] [address] [place] [address] Dr. Myrna Ramosesterol in HDL [Mass/Vol]70 mg/dLCritically dfes28-54Zds [facility] HospitalComment on above:Performed By: #### ACAQUAN #### [facility] [address] [place] [address] Dr. Myrna Ramosesterol in LDL [Mass/Vol]92.4 mg/dLNormalThe [facility] HospitalComtrinity health [facility] on above:Performed By: #### ACAQUAN #### [facility] [address] [place] [address] Dr. Myrna Leon.total/Cholesterol in HDL [Mass ratio]2.5 {ratio} NormalThe Fab HospitalComment on above:Performed By: #### ACAQUAN #### [facility] [address] [address] [address] Myrna Martinez NORMAL> or = 60 mg/dl - LOW CARDIOVASCULAR RISK <40 mg/dl - HIGH CARDIOVASCULAR RISKRiverview Health InstituteComment on above:Performed By: #### ACAQUAN #### [facility] [address] [place] [address] Dr. Myrna AntonyLDL CALC NORMALSEE BELOWRiverview Health InstituteComment on above:Result Comment: <100 mg/dl OPTIMAL 100 - 129 mg/dl NEAR OR ABOVE OPTIMAL 130 - 159 mg/dl BORDERLINE HIGH 160 - 189 mg/dl HIGH >190 mg/dl VERY HIGH Performed By: #### ACAQUAN #### [facility] [address] [place] [address] Dr. Myrna AntonyTriglyceride [Mass/Vol]73 mg/dLNormal<=150[facility] Comment on above:Performed By: #### ACAQUAN #### [facility] [address] [address] [address] Myrna Guzman CALC14.6 mg/dLNoNationwide Children's HospitalComment on above: Performed By: #### ACAQUAN #### [facility] [address] [place] [address] Dr. Myrna Horne 67-91-6445SMX [Catalytic activity/Vol]34 U/RStwshh72-38Lbv [facility] on above:Performed By: #### ACAQUAN #### [facility] [address] [place] [address] Dr. Myrna Andino 64-61-5402RJI [Catalytic activity/Vol]44 U/TGhcqum02-17Rrg [facility] on above:Performed By: #### ACAQUAN #### [facility] [address] [place] [address] Dr. Myrna Williamson Visit (Cardiology)on 23-44-5342Hexzft-up visit Diagnoses/Problems Assessed Essential hypertension (401.9) (I10) Hyperlipidemia, unspecified (272.4) (E78.5) Sinus bradycardia (427.89) (R00.1) Former smoker (V15.82) (Z87.891) Overweight (278.02) (E66.3) Orders Hyperlipidemia, unspecified Renew: Rosuvastatin Calcium 40 MG Oral Tablet; TAKE 1 TABLET DAILY ALT - Alanine Aminotransferase, Serum; Status:Active; Requested for:13Dnn2409; AST; Status:Active; Requested for:16Dkr7250; Lipid Panel; Status:Active; Requested for:73Rsb1893; SocHx: Former smoker Tobacco Use Screening; Status:Complete; Done: [id number] Patient Instructions Please bring all medicines, vitamins, [...] prednisone managed by rheumatology Lei Perez MD, [facility] Active Problems Problems Essential hypertension (401.9) (I10) [...] negative for complaint. Vitals Vital Signs Recorded: 14Bsw3168 01:49PM Heart Rate66, L Radial Gzmeqyjj039, RUE, Sitting Cllmlmgbu68, RUE, Sitting Height5 ft 6 in Tobacco [...] (more content not included)... NormalUH TouchworksTobacco Screening.on 23-97-7904Agodv depression screening assessmentNoMilitary Health System [employer] DO Work Phone: Fall risk assessmenta) No falls within the last year [facility] [employer] DO Work Phone: Tobacco use status CPHSb) NoMConfluence Health [employer] DO Work Phone: Activated partial thromboplastin time (aPTT) in platelet poor plasma by coagulation aOrdered By: Teetee Rizvi on 88-86-5666zDCG Coag (PPP) [Time]28.8 s25.1-36.5FSelect Medical Specialty Hospital - Cincinnati NorthAlbumin [Mass/volume] in Serum or PlasmaOrdered By: Teetee Rizvi on 02-84-6494Jujoigv [Mass/Vol]3.7 g/dL3.2-5.5FSelect Medical Specialty Hospital - Cincinnati NorthAutomated erythrocytes count in urine sediment (number/area)Ordered By: Teetee Rizvi on 85-75-3041IVN Auto (Urine sed) [#/Area]5-9 [HPF]0-4FSelect Medical Specialty Hospital - Cincinnati NorthAutomated leukocytes count in urine sediment (number/area)Ordered By: Teetee Rizvi on 48-54-5909OBC Auto (Urine sed) [#/Area]1-2 [HPF]0-4FSelect Medical Specialty Hospital - Cincinnati NorthBilirubin Test strip Ql (U)Ordered By: Teetee Rizvi on 91-32-6930Solawgcze Ql (U)NegativeNegTrinity Health SystemBlood hemoglobin measurement (mass/volume)Ordered By: Teetee Rizvi on 38-48-2355Zwrgckzdxk (Bld) [Mass/Vol]12.6 g/dL11.8-15.4FSelect Medical Specialty Hospital - Cincinnati NorthColor Auto (U) Ordered By: Teetee Rizvi on 10-02-6324Huwll (U)YellowYellowClinton Memorial HospitalCreatinine [Mass/volume] in UrineOrdered By: Teetee Rizvi on 30-76-4749Cbaahabznr (U) [Mass/Vol]235.6 mg/dLClinton Memorial Hospital Comment on above:No reference range establishedCreatinine and Glomerular filtration rate.predicted panel (S/P/Bld)Ordered By: Teetee Rizvi on 07-04-2022 Creatinine [Mass/Vol]0.76 mg/dL0.44-1.03[facility] Erythrocyte distribution width Auto (RBC) [Ratio]Ordered By: Teetee Rizvi on 32-59-6497Afjhkynhkrc distribution width (RBC) [Ratio]14.1 %11.9-15.3FSelect Medical Specialty Hospital - Cincinnati NorthEstimated glomerular filtration rate (GFR) non- AmericanOrdered By: Teetee Rizvi on 03-08-7352EWF/1.73 sq M.predicted among non- blacks MDRD (S/P/Bld) [Vol rate/Area]> 60 mL/MinClinton Memorial HospitalGlobulin Calc (S) [Mass/Vol]Ordered By: Teetee Rizvi on 49-34-3902Yznaajkc (S) [Mass/Vol]3.1 g/dLClinton Memorial HospitalHematocrit Auto (Bld) [Volume fraction]Ordered By: Teetee Rizvi on 69-82-4656Uqnpyqxjex (Bld) [Volume fraction]38.3 %34.0-46.4FSelect Medical Specialty Hospital - Cincinnati NorthHepatitis B virus surface Ag [Presence] in Serum or Plasma by ImmunoassayOrdered By: Teetee Rizvi on 53-10-6414NBV surface Ag IA QlNegativeNegTrinity Health SystemComment on above:Performed at: CB - Lab[address] [id number] Seismic Plotter: Cody Williamson PhD, Phone: [phone] Auto test strip (U) [Mass/Vol]Ordered By: Teetee Rizvi on 19-80-8303Mzshbbd (U) [Mass/Vol]Trace NegativeClinton Memorial HospitalLaboratory - CoagulationOrdered By: Teetee Rizvi on 76-90-1813ZK Coag (PPP) [Time]10.1 s9.0-12.9[facility] HospitalLaboratory - UrinalysisOrdered By: Teetee Rizvi on 07-04-2022 Hyaline casts LM Ql (Urine sed)9-19 [LPF]0-8[facility] Auto (RBC) [Entitic mass]Ordered By: Teetee Rizvi on 22-02-0131UIU (RBC) [Entitic mass]29.1 pg24.7-34.3FChildren's Hospital of ColumbusHC Auto (RBC) [Mass/Vol]Ordered By: Teetee Rizvi on 37-14-3524ZGQU (RBC) [Mass/Vol]32.8 g/dL 32.0-35.0[facility] HospitalV Auto (RBC) [Entitic vol]Ordered By: Teetee Rizvi on 67-30-8961HZI (RBC) [Entitic vol]88.7 qD70-435GguhqzxpbClinton Memorial HospitalNitrite Test strip Ql (U)Ordered By: Teetee Rizvi on 46-14-1484Zkbwrgv Ql (U)NegativeNegativeClinton Memorial HospitalNo Panel InformationOrdered By: Teetee Rizvi on 14-43-841064135486-Juectfd Vitamin D Total42.1 ng/dG65-768GtgnjrbpeClinton Memorial HospitalComment on above:VITAMIN D STATUS 25(OH)VITAMIN D RANGE (ng/mL) Deficient <20 Insufficient 20 to <30 Sufficient 30 to 100 Reference: Vero MF,Nara TRAMMELL, Darius RHODES, et al. Evaluation,treatment, and prevention of vitamin D deficiency; an Endocrine Society clinical practice guideline. JCEM. 2010; 96(7):1911-30.Estimated GFR ()> 60 mL/MinClinton Memorial HospitalComment on above: GFR estimated reference range: According to KDOQI guidelines, <60 ml/min/1.73m2 is sufficient todiagnose a patient with chronic kidney disease.Pharmacy Creatinine Clearance (Chem76.30[facility] HospitalPlatelet mean volume Auto (Bld) [Entitic vol]Ordered By: Teetee Rizvi on 23-43-1082Lxsmewpu mean volume (Bld) [Entitic vol]8.0 fL6.3-10.7FSelect Medical Specialty Hospital - [facility] North Platelet poor plasma international normalized ratio (INR) by coagulation assay (relatOrdered By: Teetee Rizvi on 00-07-4100SUP Coag (PPP) [Relative time]0.9 {INR}[facility] HospitalComment on above:INR Therapeutic Range A) Pre- [...] Auto (Bld) [#/Vol]Ordered By: Teetee Rizvi on 11-25-5961Owpmbyvvt (Bld) [#/Vol]269 10*3/uL 150-450Cl[facility] HospitalProtein Auto test strip (U) [Mass/Vol] Ordered By: Teetee Rizvi on 24-76-0881Tditnbm (U) [Mass/Vol]100 mg/dLNegative [facility] HospitalProtein [Mass/volume] in Serum or PlasmaOrdered By: Teetee Rizvi on 98-56-9010Iczpohu [Mass/Vol]6.8 g/dL6.1-7.9[facility] HospitalProtein [Mass/volume] in UrineOrdered By: Teetee Rizvi on 29-99-0549Npbntoy (U) [Mass/Vol]61 mg/dL0-9[facility] HospitalRBC Auto (Bld) [#/Vol]Ordered By: Teetee Rizvi on 64-67-9153GLY (Bld) [#/Vol]4.32 10*6/uL3.60-5.00[facility] Hospitalerum or plasma alanine aminotransferase measurement without P-5'-P (enzymatic activiOrdered By: Teetee Rizvi on 56-76-0029QCG No additional P-5'-P [Catalytic activity/Vol]20 U/L 10-60[facility] Hospitalerum or plasma albumin/globulin mass ratioOrdered By: Teetee Rizvi on 71-10-7237Kqpcwag/Globulin [Mass ratio]1.2 {ratio}[facility] Hospitalerum or plasma alkaline phosphatase measurement (enzymatic activity/volume)Ordered By: Teetee Rizvi on 93-38-7398KKW [Catalytic activity/Vol]61 U/U71-83HrggslphfOhioHealth Hardin Memorial Hospitalerum or plasma anion gap determinationOrdered By: Teetee Rizvi on 88-75-5379Stfvr gap [Moles/Vol]13.7 mmol/L6.0-15.0[facility] Hospitalerum or plasma aspartate aminotransferase measurement (enzymatic activity/volume)Ordered By: Teetee Rizvi on 12-02-5786SYL [Catalytic activity/Vol]22 U/D42-76IdwenxmsaOhioHealth Hardin Memorial Hospitalerum or plasma calcium measurement (mass/volume)Ordered By: Teetee Rizvi on 51-59-1529Zvydbih [Mass/Vol]8.9 mg/dL8.2-10.2FUniversity Hospitals Geauga Medical Centererum or plasma chloride measurement (moles/volume) Ordered By: Teetee Rizvi on 41-33-4220Whykvacv [Moles/Vol]106 mmol/L95-114 [facility] Hospitalerum or plasma complement C3 measurement (mass/volume)Ordered By: Teetee Rizvi on 81-54-0619Hijvaldgqu C3 [Mass/Vol]144 mg/oP54-588CtrrjfzhpClinton Memorial HospitalComment on above:Performed at: [address] [id number] Seismic Plotter: Cody Williamson PhD, Phone: [phone] or plasma complement C4 measurement (mass/volume)Ordered By: Teetee Rizvi on 52-41-9127Uktobbgicy C4 [Mass/Vol]22 mg/dW50-44ReskwjjqgOhioHealth Hardin Memorial Hospitalerum or plasma free cefuroxime measurement (mass/volume)Ordered By: Teetee Rizvi on 07-04-2022 Cefuroxime free [Mass/Vol]NegativeNegativeClinton Memorial Hospital Comment on above:Performed at: - Labco[address] [id number] Seismic Plotter: Cody Williamson PhD, Phone: [phone] or plasma glucose measurement (mass/volume)Ordered By: Teetee Rizvi on 31-56-3502Whdjtgj [Mass/Vol]119 mg/gU53-566BqgythrqmClinton Memorial HospitalComment on above:ADA recommended reference range Random Glucose Reference Range is dependent on time and content of last meal. Glucose of more than 200 mg/dL in a nonstressed, ambulatory subject supports the diagnosis of Diabetes Mellitus.Serum or plasma intact parathyroid hormone measurement (mass/volume)Ordered By: Teetee Rizvi on 30-48-9681Gyfhesplvr.intact [Mass/Vol]80.6 pg/nR09-53DyingaxljOhioHealth Hardin Memorial Hospitalerum or plasma potassium measurement (moles/volume)Ordered By: Teetee Rizvi on 07-04-2022 Potassium [Moles/Vol]3.8 mmol/L3.5-5.1FUniversity Hospitals Geauga Medical Centererum or plasma sodium measurement (moles/volume)Ordered By: Teetee Rizvi on 07-04-2022 Sodium [Moles/Vol]139 mmol/Y723-345YrbvpdaiyOhioHealth Hardin Memorial Hospitalerum or plasma total bilirubin measurement (mass/volume)Ordered By: Teetee Rizvi on 94-82-6838Pafuxgejd [Mass/Vol]1.6 mg/dL0.3-1.2FSelect Medical Specialty Hospital - [facility] North Comment on above:Samples from patients who have taken Naproxen have shown spurious elevation in Total Bilirubin levels. A metabolite of Naproxen, O- desmethylnaproxen, has been shown to interfere with the Carmen-William method for measuring Total Bilirubin.Serum or plasma total carbon dioxide measurement (moles/volume)Ordered By: Teetee Rizvi on 66-72-0076IR8 [Moles/Vol]23.1 mmol/L 22.0-30.0Ohio[facility] Memorial Hospitalerum or plasma urea nitrogen measurement (mass/volume)Ordered By: Teetee Rizvi on 27-38-1822Rjjc nitrogen [Mass/Vol]15 mg/dL9-23Ohio[facility] Memorial Hospitalerum or plasma uric acid measurement (mass/volume)Ordered By: Teetee Rizvi on 02-79-4795Dzjhk [Mass/Vol] 5.1 mg/dL2.6-7.2FUniversity Hospitals Geauga Medical Centerpecific gravity Auto test strip (U) [Rel density]Ordered By: Teetee Rizvi on 92-35-1180Lfbbjebw gravity (U) [Rel density]1.0211.001-1.030Ohio[facility] Hardin Memorial Hospitalquamous epithelial cells detection in urine sediment by light microscopyOrdered By: Teetee Rizvi on 33-72-5714Tcsvzwhyat cells.squamous LM Ql (Urine sed)1-2 [HPF]0-2 [facility] HospitalUrine bacteria detection by automated method Ordered By: Teetee Rizvi on 15-08-3908Zcbkcusx Auto Ql (U)None seenNone Seen [facility] HospitalUrine clarity by refractometry automatedOrdered By: Teetee Rizvi on 65-04-0497Fcyvrqe Refractometry automated (U)ClearClear [facility] HospitalUrine glucose measurement by automated test strip (mass/volume)Ordered By: Teetee Rizvi on 63-58-5537Ycayywn Auto test strip (U) [Mass/Vol]Normal mg/dLNormalClinton Memorial HospitalUrine hemoglobin detection by automated test stripOrdered By: Teetee Rizvi on 01-94-6386Icpfscfvpb Auto test strip Ql (U)NegativeNegativeClinton Memorial HospitalUrine leukocyte esterase detection by automated test stripOrdered By: Teetee Rizvi on 02-64-9188Wxzitmcjg esterase Auto test strip Ql (U)Negative NegativeClinton Memorial HospitalUrine protein/creatinine ratioOrdered By: Teetee Rizvi on 41-65-8519Hybzpuv/Creatinine (U) [Ratio]259 mg/g{Cre}0-200 [facility] HospitalUrine sediment renal epithelial cell count by microscopy (number/high power field)Ordered By: Teetee Rizvi on 07-04-2022 Epithelial cells.renal LM.HPF (Urine sed) [#/Area]None seen [HPF]0-1FSelect Medical Specialty Hospital - Cincinnati NorthUrobilinogen Auto test strip (U) [Mass/Vol]Ordered By: Teetee Rizvi on 98-75-0237Yatlnxhjpvwe (U) [Mass/Vol]Normal mg/dLNormalClinton Memorial HospitalWBC Auto (Bld) [#/Vol]Ordered By: Teetee Rizvi on 04-12-7581AFQ (Bld) [#/Vol]6.9 10*3/uL3.8-11.6FSelect Medical Specialty Hospital - [facility] North pH Auto test strip (U)Ordered By: Teetee Rizvi on 07-37-3415kC (U)6.5 [pH] 5.0-9.0[facility] HospitalANTICARDIOLIPIN AB (AKASH) IGA/IGG/IGMon 43-09-9537Uwytjiqxzyykyyw Ab,IgA,Qn<7Gskpso3-97Woq [facility] HospitalComment on above:Result Comment: Negative: <12 Indeterminate: 12 - 20 Low-Med Positive: >20 - 80 High Positive: >80Performed By: #### ACAQUAN #### [facility] [address] [place] [address] Dr. Myrna AntonyAnticardiolipin Ab,IgG,Qn<8Cdhwft6-47Vqx [facility] HospitalComment on above:Result Comment: Negative: <15 Indeterminate: 15 - 20 Low-Med Positive: >20 - 80 High Positive: >80Performed By: #### ACAQUAN #### [facility] [address] [place] [address] Dr. Myrna AntonyAnticardiolipin Ab,IgM,Qn44 MPL U/mLCritically high0-12[facility] HospitalComment on above:Result Comment: Negative: <13 Indeterminate: 13 - 20 Low-Med Positive: >20 - 80 High Positive: >80Performed By: #### ACAQUAN #### [facility] [address] [place] [address] Dr. Myrna Cardozo 82-94-3951KBQ [Mass/Vol]mg/LNormal<=1.0The [facility] HospitalComment on above:Performed By: #### CRP #### [facility] [address] [address] [address] Myrna AntonyMG MAMM SCREEN 3D YAYO CADon 15-65-3055CT MAMM SCREEN 3D YAYO CAD Patient: UZMA RAMIREZ Exam Date: 07/02/2022 : 1955 Gender:F Ordering : DR ERROL CORBIN M.D. Admission #: [id number] Family : DR FLORINDA FLOWERS M.D. Order #: [id number] CLICK HERE TO VIEW EXAM RADIOLOGY REPORT [...] uterine cancer at age 63. LOCATION: [facility] BREAST COMPOSITION: Scattered areas fibroglandular density. [...] by: Edward Bobo MD on 07/02/2022 at 11:05NoSamaritan HospitalED RATE WESTERGRENon 85-43-7902JZL RATE37 mm/hrCritically high<=30[facility] HospitalComment on above:Performed By: #### SEDR #### [facility] [address], [place] [address] Dr. Myrna AntonyAutomated erythrocytes count in urine sediment (number/area) Ordered By: Ryan Ortiz on 20-97-4345JHV Auto (Urine sed) [#/Area]20-49 [HPF] [facility] HospitalAutomated leukocytes count in urine sediment (number/area)Ordered By: Ryan Ortiz on 40-15-3151LNC Auto (Urine sed) [#/Area]3-4 [HPF][facility] HospitalAutomated urine hyaline casts count (number/volume)Ordered By: Ryan Ortiz on 65-78-4578Hypasbo casts Auto (U) [#/Vol]None seen [LPF][facility] HospitalBilirubin Test strip Ql (U)Ordered By: Ryan Ortiz on 07-84-6622Rnwtcvytk Ql (U)NegativeNegative [facility] HospitalCast typing in urine sediment by light microscopyOrdered By: Ryan Ortiz on 94-38-6541Siktl LM Nom (Urine sed)None seen [LPF]None SeenClinton Memorial HospitalColor Auto (U)Ordered By: Ryan Ortiz on 78-12-2409Zdqdg (U)Dark yellowYellowClinton Memorial HospitalCreatinine and Glomerular filtration rate.predicted panel (S/P/Bld) Ordered By: Ryan Ortiz on 72-17-6908Ofrdgoeafo [Mass/Vol]1.02 mg/dL0.44-1.03 [facility] HospitalErythrocyte sedimentation rate by Photometric methodOrdered By: Ryan Ortiz on 61-60-3467ROE Photometric method (Bld) [Velocity]29 mm/hr0-29[facility] HospitalEstimated glomerular filtration rate (GFR) non- AmericanOrdered By: Ryan Ortiz on 60-33-9865WQH/1.73 sq M.predicted among non-blacks MDRD (S/P/Bld) [Vol rate/Area]54 mL/MinClinton Memorial HospitalKetones Auto test strip (U) [Mass/Vol]Ordered By: Ryan Ortiz on 10-40-9426Xanqaeg (U) [Mass/Vol]Trace NegativeClinton Memorial HospitalMucus LM Ql (Urine sed)Ordered By: Ryan Ortiz on 04-58-8173Urzph Ql (Urine sed)2+ [LPF][facility] HospitalNitrite Test strip Ql (U)Ordered By: Ryan Ortiz on 03-19-2022 Nitrite Ql (U)NegativeNegTrinity Health SystemNo Panel InformationOrdered By: Ryan Ortiz on 86-79-1145Bdkqocmwq GFR ()> 60 mL/MinClinton Memorial HospitalComment on above:GFR estimated reference range: According to KDOQI guidelines, <60 ml/min/1.73m2 is sufficient todiagnose a patient with chronic kidney disease.Pharmacy Creatinine Clearance (ChemN/[facility] Medical CenterProtein Auto test strip (U) [Mass/Vol]Ordered By: Ryan Ortiz on 13-67-3559Rnzprcs (U) [Mass/Vol]100 mg/dLNegMercy Health Urbana Hospitalerum or plasma C reactive protein measurement (mass/volume)Ordered By: yRan Ortiz on 29-25-9577XRX [Mass/Vol] 0.9 mg/dL0.0-1.0[facility] Hospitalerum or plasma urea nitrogen measurement (mass/volume)Ordered By: yRan Ortiz on 51-43-6904Zcdw nitrogen [Mass/Vol]28 mg/dL9-23[facility] Hospitalpecific gravity Auto test strip (U) [Rel density]Ordered By: Ryan Ortiz on 34-37-6071Pzkrmseo gravity (U) [Rel density]1.0261.001-1.030[facility] Squamous epithelial cells detection in urine sediment by light microscopyOrdered By: Ryan Ortiz on 95-79-6240Tycbsttsmo cells.squamous LM Ql (Urine sed)3-4 [HPF][facility] HospitalUrine bacteria detection by automated methodOrdered By: Ryan Ortiz on 25-13-7166Jjnkwdym Auto Ql (U)None seenNone SeenClinton Memorial HospitalUrine clarity by refractometry automated Ordered By: Ryan Ortiz on 24-13-7159Eefiynz Refractometry automated (U)Clear ClearClinton Memorial HospitalUrine glucose measurement by automated test strip (mass/volume)Ordered By: Ryan Ortiz on 62-90-3078Gvteulk Auto test strip (U) [Mass/Vol]Normal mg/dLNormalClinton Memorial Hospital Urine hemoglobin detection by automated test stripOrdered By: Ryan Adkinsrow on 75-41-1045Smhfyclslf Auto test strip Ql (U)NegativeNegativeClinton Memorial HospitalUrine leukocyte esterase detection by automated test stripOrdered By: Ryan Adkinsrow on 67-84-7638Gpreoqswf esterase Auto test strip Ql (U)1+ NegativeClinton Memorial HospitalUrine sediment renal epithelial cell count by microscopy (number/high power field)Ordered By: Ryan Ortiz on 91-12-6932Iulbkkxcrm cells.renal LM.HPF (Urine sed) [#/Area]None seen [HPF] [facility] HospitalUrobilinogen Auto test strip (U) [Mass/Vol] Ordered By: Ryan Ortiz on 08-69-9981Ijmcihrovzpj (U) [Mass/Vol]Normal mg/dL NormalClinton Memorial HospitalpH Auto test strip (U)Ordered By: Ryan Ortiz on 58-97-6786mB (U)5.5 [pH]5.0-9.0[facility] HospitalCBC W Auto Differential panel (Bld)on 07-52-9512Dyinmzitq (Bld) [#/Vol]0.04 10*3/uL Normal<0.11CA[facility] on above:Order Comment: Specimen Type: BLOOD SPECIMEN Ordering Facility: [facility] Address: [address] [place], [place] [address]Performed By: #### 97913-1 #### [facility] CLIA [id number] [address] [place] [address] 76535Wzqwxouck/100 WBC (Bld)0.4 %NormalWvumedicine Harrison Community Hospital Comment on above:Order Comment: Specimen Type: BLOOD SPECIMEN Ordering Facility: [facility] Address: [address] [place], [place] [address]Performed By: #### 85578-1 #### [facility] CLIA [id number] [address], [place] [address]Jhjspllpdvzg cell count method Nom (Bld)AutoNormalCCommunity Regional Medical CenterComtrinity health [facility] on above:Order Comment: Specimen Type: BLOOD SPECIMEN Ordering Facility: [facility] Address: [address]Performed By: #### 74185-2 #### [facility] CLIA [id number] [address] [place] [address] 68891Agmresilcuj (Bld) [#/Vol]0.14 10*3/uLNormal<0.46[facility] on above:Order Comment: Specimen Type: BLOOD SPECIMEN Ordering Facility: [facility] Address: [address] [address]Performed By: #### 90353-4 #### [facility] CLIA [id number] [address] [place] [address] 53236Ucpigawoxwb/100 WBC (Bld)1.4 %NormalWvumedicine Harrison Community Hospital Comment on above:Order Comment: Specimen Type: BLOOD SPECIMEN Ordering Facility: [facility] Address: [address] [place], [place] [address]Performed By: #### 30408-4 #### [facility] CLIA [id number] [address] [place] [address] 00344Vlbcloefzdx distribution width (RBC) [Ratio]14.4 %Normal 11.5-15.0[facility] on above:Order Comment: Specimen Type: BLOOD SPECIMEN Ordering Facility: [facility] Address: [address] [place], [place] [address]Performed By: #### 85860-5 #### [facility] CLIA [id number] [address] [place] [address] 62037Tjvcdcykpj (Bld) [Volume fraction]39.7 %Mlylxh69.0-46.0 [facility] on above:Order Comment: Specimen Type: BLOOD SPECIMEN Ordering Facility: [facility] Address: [address] [place], [place] [address]Performed By: #### 17313-6 #### [facility] CLIA [id number] [address] [place] [address] 00520Fepownzpor (Bld) [Mass/Vol]12.7 g/uWJxffix20.5-15.5CAult[facility] Hospital on above:Order Comment: Specimen Type: BLOOD SPECIMEN Ordering Facility: [facility] Address: [address] [place], [place] [address]Performed By: #### 39729-1 #### [facility] CLIA [id number] [address], [place] [address]RLOWNZMT GRAN %0.3 %NormalAdams County Regional Medical Center on above:Order Comment: Specimen Type: BLOOD SPECIMEN Ordering Facility: [facility] Address: [address] [place], [place] [address]Performed By: #### 18300-2 #### [facility] CLIA [id number] [address] [place] [address] 11581PDSWKPXG GRAN ABS0.03 k/uLNormal<0.10[facility] on above:Order Comment: Specimen Type: BLOOD SPECIMEN Ordering Facility: [facility] Address: [address] [place], [place] [address]Performed By: #### 63474-2 #### [facility] CLIA [id number] [address] [place] [address] 87935Ptqnfvwauag (Bld) [#/Vol]4.34 10*3/uLHigh1.00-4.00[facility] on above:Order Comment: Specimen Type: BLOOD SPECIMEN Ordering Facility: [facility] Address: [address]Performed By: #### 39336-0 #### [facility] CLIA [id number] [address] [place] [address] 22169Snnddufkjlr/100 WBC (Bld)43.5 %NormalAdams County Regional Medical Center on above:Order Comment: Specimen Type: BLOOD SPECIMEN Ordering Facility: [facility] Address: [address] [place], [place] [address]Performed By: #### 43625-5 #### [facility] CLIA [id number] [address], [place] [address]LED (RBC) [Entitic mass]29.5 kyGvnxxb47.0-34.0[facility] on above:Order Comment: Specimen Type: BLOOD SPECIMEN Ordering Facility: [facility] Address: [address] [place], [place] [address]Performed By: #### 24369-5 #### [facility] CLIA [id number] [address], [place] [address]WGSQ (RBC) [Mass/Vol]32.0 g/nNPeypaz02.5-36.0[facility] on above:Order Comment: Specimen Type: BLOOD SPECIMEN Ordering Facility: [facility] Address: [address] [place], [place] [address]Performed By: #### 39131-9 #### [facility] CLIA [id number] [address] [place] [address] 48189OKS (RBC) [Entitic vol]92.1 qXLfmdna56.0-100.0[facility] on above:Order Comment: Specimen Type: BLOOD SPECIMEN Ordering Facility: [facility] Address: [address] [place], [place] [address]Performed By: #### 41325-9 #### [facility] CLIA [id number] [address] [place] [address] 74927Qqiqnjidr (Bld) [#/Vol]0.78 10*3/uLNormal<0.87[facility] on above:Order Comment: Specimen Type: BLOOD SPECIMEN Ordering Facility: [facility] Address: [address] [place], [place] [address]Performed By: #### 05901-9 #### [facility] CLIA [id number] [address] [place] [address] 21804Lrectykrc/100 WBC (Bld)7.8 %NormalWvumedicine Harrison Community Hospital Comment on above:Order Comment: Specimen Type: BLOOD SPECIMEN Ordering Facility: [facility] Address: [address] [place], [place] [address]Performed By: #### 97645-5 #### [facility] CLIA [id number] [address] [place] [address] 17572Diikzdchphs (Bld) [#/Vol]4.64 10*3/uLNormal1.45-7.50[facility] on above:Order Comment: Specimen Type: BLOOD SPECIMEN Ordering Facility: [facility] Address: [address] [place], [place] [address]Performed By: #### 70388-3 #### [facility] CLIA [id number] [address] [place] [address] 18420Oeqqywckeqb/100 WBC (Bld)46.6 %NormalAdams County Regional Medical Center on above:Order Comment: Specimen Type: BLOOD SPECIMEN Ordering Facility: [facility] Address: [address] [place], [place] [address]Performed By: #### 12212-3 #### [facility] CLIA [id number] [address] [place] [address] 31070Pssoboodz RBC (Bld) [#/Vol]10*3/uLNormal<0.01[facility] on above:Order Comment: Specimen Type: BLOOD SPECIMEN Ordering Facility: [facility] Address: [address] [place], [place] [address]Performed By: #### 29245-0 #### [facility] CLIA [id number] [address] [place] [address] 36093Pqrnqmjvc RBC/100 WBC (Bld) [Ratio]0.0 /100 WBCNormalCAultman Alliance Community Hospital on above:Order Comment: Specimen Type: BLOOD SPECIMEN Ordering Facility: [facility] Address: [address] [place], [place] [address]Performed By: #### 17460-2 #### [facility] CLIA [id number] [address], [place] [address]Qazqmdve mean volume (Bld) [Entitic vol]9.2 fLNormal9.0-12.7 [facility] on above:Order Comment: Specimen Type: BLOOD SPECIMEN Ordering Facility: [facility] Address: [address] [place], [place] [address]Performed By: #### 43414-5 #### [facility] CLIA [id number] [address], [place] [address]Iheormsvv (Bld) [#/Vol]301 10*3/rYYrlxak938-769LatsyyolaAdams County Regional Medical Center on above:Order Comment: Specimen Type: BLOOD SPECIMEN Ordering Facility: [facility] Address: [address] [place], [place] [address]Performed By: #### 25425-1 #### [facility] CLIA [id number] [address] [place] [address] 67148AJM (Bld) [#/Vol]4.31 10*6/uLNormal3.90-5.20[facility] on above:Order Comment: Specimen Type: BLOOD SPECIMEN Ordering Facility: [facility] Address: [address] [place], [place] [address]Performed By: #### 24325-8 #### [facility] CLIA [id number] [address], [place] [address]RMI (Bld) [#/Vol]9.97 10*3/uLNormal3.70-11.00[facility] on above:Order Comment: Specimen Type: BLOOD SPECIMEN Ordering Facility: [facility] Address: [address] [place], [place] [address]Performed By: #### 69274-1 #### [facility] CLIA [id number] [address], [place] [address]ECSKHTpw [phone] (SP) Office ([place]) UZMA RAMIREZ ([id number]) 1955 F Date Time Provider Department 02/15/22 [...] Normal RADIOLOGY/OTHER STUDIES: 06/28/2021 Bilateral screening mammogram [facility]) No significant suspicious findings in the right breast or left breast. Routine mammogram in 12 months recommended. 02/28/2021 Bone density DEXA ([facility]) Osteoporosis ASSESSMENT/PLAN: 1. Malignant neoplasm of left breast in female, estrogen receptor positive (HCC) (more content not included)...NormalWvumedicine [facility] Community Hospital Comprehensive metabolic 2000 panelon 23-53-7120Lrknwcb [Mass/Vol]4.5 g/dLNormal 3.9-4.9CA[facility] on above:Order Comment: Specimen Type: BLOOD SPECIMEN Ordering Facility: [facility] Address: [address] [place], [place] [address]Performed By: #### 10771-1 #### [facility] CLIA [id number] [address] [place] [address] 87321IKR [Catalytic activity/Vol]82 U/XNuqkhl74-991AdaortppmAdams County [facility] Center on above:Order Comment: Specimen Type: BLOOD SPECIMEN Ordering Facility: [facility] Address: [address] [place], [place] [address]Performed By: #### 46000-0 #### [facility] CLIA [id number] [address], [place] [address]YON [Catalytic activity/Vol]29 U/LNormal7-38[facility] on above:Order Comment: Specimen Type: BLOOD SPECIMEN Ordering Facility: [facility] Address: [address] [address]Performed By: #### 60894-9 #### [facility] CLIA [id number] [address] [place] [address] 06771Sekub gap [Moles/Vol]9 mmol/LNormal9-18[facility] on above:Order Comment: Specimen Type: BLOOD SPECIMEN Ordering Facility: [facility] Address: [address] [place], [place] [address]Performed By: #### 37038-1 #### [facility] CLIA [id number] [address], [place] [address]QDL [Catalytic activity/Vol]28 U/MNftrrs06-32PajdlbiqnAdams County Regional Medical Center on above:Order Comment: Specimen Type: BLOOD SPECIMEN Ordering Facility: [facility] Address: [address] [place], [place] [address]Performed By: #### 04298-2 #### [facility] CLIA [id number] [address] [place] [address] 41175Dpxbqbgwk [Mass/Vol]1.1 mg/dLNormal0.2-1.3CAult[facility] Hospital on above:Order Comment: Specimen Type: BLOOD SPECIMEN Ordering Facility: [facility] Address: [address]Performed By: #### 40696-1 #### [facility] CLIA [id number] [address] [place] [address] 86015Kdpgalk [Mass/Vol]9.7 mg/dLNormal8.5-10.2CAultman [facility] Hospital on above:Order Comment: Specimen Type: BLOOD SPECIMEN Ordering Facility: [facility] Address: [address]Performed By: #### 53122-1 #### [facility] CLIA [id number] [address] [place] [address] 20989Kgrleapk [Moles/Vol]103 mmol/HFdodrk58-666JrckzbhzsAdams County Regional Medical Center on above:Order Comment: Specimen Type: BLOOD SPECIMEN Ordering Facility: [facility] Address: [address] [place], [place] [address]Performed By: #### 86094-3 #### [facility] CLIA [id number] [address], [place] [address]HI5 [Moles/Vol]22 mmol/IXkeqmx20-65FycfqjjltWvumedicine Harrison Community Hospital Comment on above:Order Comment: Specimen Type: BLOOD SPECIMEN Ordering Facility: [facility] Address: [address] [place], [place] [address]Performed By: #### 12325-7 #### [facility] CLIA [id number] [address] [place] [address] 24008Wbxtivawhx [Mass/Vol]0.82 mg/dLNormal0.58-0.96Wvumedicine Harrison Community HospitalComment on above:Order Comment: Specimen Type: BLOOD SPECIMEN Ordering Facility: [facility] Address: [address] [place], [place] [address]Performed By: #### 01238-7 #### [facility] CLIA [id number] [address] [place] [address] 35426NIZRIBSJI GLOMERULAR FILTRATION RATE79 mL/min/1.73m???Normal >=60Wvumedicine Harrison Community HospitalComment on above:Order Comment: Specimen Type: BLOOD SPECIMEN Ordering Facility: [facility] Address: [address] [place], [place] [address]Result Comment: Estimated Glomerular Filtration Rate (eGFR) is [...] not accurately reflect actual GFR.Performed By: #### 84213-2 #### [facility] CLIA [id number] [address] [place] [address] 43715Lwkbmhn [Mass/Vol]128 mg/sUWbgr52-95GnotmutsqWvumedicine Harrison Community Hospital Comment on above:Order Comment: Specimen Type: BLOOD SPECIMEN Ordering Facility: [facility] Address: [address] [place], [place] [address]Result Comment: The [place] [employer] Association (ADA) provides guidance for cutoff [...] Standards of Medical Care in Diabetes 2016, [place] [employer]. Diabetes Care. 2016.39(Suppl 1).Performed By: #### 39969-9 #### [facility] CLIA [id number] [address] [place] [address] 72614Crnbpuqnk [Moles/Vol]3.9 mmol/LNormal3.7-5.1CAultman Alliance Community Hospital on above:Order Comment: Specimen Type: BLOOD SPECIMEN Ordering Facility: [facility] Address: [address] [place], [place] [address]Performed By: #### 66574-1 #### [facility] CLIA [id number] [address] [place] [address] 18091Trwgfrb [Mass/Vol]7.1 g/dLNormal6.3-8.0[facility] on above:Order Comment: Specimen Type: BLOOD SPECIMEN Ordering Facility: [facility] Address: [address] [place], [place] [address]Performed By: #### 52625-7 #### [facility] CLIA [id number] [address] [place] [address] 56859Xrmrsf [Moles/Vol]134 mmol/XGit557-435DfblfwkvnAdams County Regional Medical Center on above:Order Comment: Specimen Type: BLOOD SPECIMEN Ordering Facility: [facility] Address: [address] [address]Performed By: #### 05190-9 #### [facility] CLIA [id number] [address], [place] [address]Wygd nitrogen [Mass/Vol]23 mg/dLHigh7-21[facility] on above:Order Comment: Specimen Type: BLOOD SPECIMEN Ordering Facility: [facility] Address: [place] [address]Pivzqpywo By: #### 62482-5 #### [facility] CLIA [id number] [address], [place] [address]OOSFue 84-14-3257JFLYBgclvvbmu ([place]MASA) UZMA RAMIREZ ([id number]) 1955 F Date Time Provider Department 02/06/22 [...] Fully Assessed Reason for Visit: Lab Orders [4708] Primary Visit Diagnosis:Malignant neoplasm of upper-outer quadrant of left breast in female, estrogen receptor positive (HCC) [C50.412, Z17.0] Order(s):CBC + DIFF [SQCBCDIF] Order #: [id number] FUTURE COMP METABOLIC PANEL [SQCMP] Order #: [id number] FUTURE Prescriptions as of 02/07/2022 - rosuvastatin [...] [Z96.649] Encounter Status:Closed by LILIA CASTRO on 02/07/22NoFirelands Regional Medical [facility] - PROTHROMBIN TIME WITH INRon 95-78-6965UQH Coag (PPP) [Relative time]0.9 {INR}NormalNorthern Indiana Medical SpecialistComment on above:Order Comment: [facility] Testing performed at: [facility] [employer] [facility], [address] [facility], [address] [place] [address], [phone], [employer] Artisan: Mariano Paul MD [facility] Collection Date/Time: [facility] Results Received Date/Time: [facility] Reported Date/Time: FASTING: NOResult Comment: Reference Range 0.9-1.1 Moderate-intensity Warfarin Therapy 2.0-3.0 Higher-intensity Warfarin Therapy 3.0-4.0Performed By: #### 763X, 26F, %SBNOCULI, 3020X #### [facility] Default [address] [place], [place] [address]PA Coag (PPP) [Time]9.3 sNormal9.0-11.5Northern [place] Medical SpecialistComment on above:Order Comment: [facility] performed at: [facility] [employer] [facility], [address] , [address] [place] [address], [place], [address], [employer]: Mariano Paul MD [facility] Date/Time: [facility] Results Received Date/Time: [facility] Reported Date/Time: FASTING: NOResult Comment: For additional information, please refer to [email or web address] (This link is being provided for informational/ educational purposes only.)Performed By: #### 763X, 26F, %SBNOCULI, 3020X #### [facility] Default [address] [place], [place] [address]V - PTTon [id number] THROMBOPLASTIN TIME, [id number] sec [id number] Hamilton HospitalComment on above:Order Comment: [facility] Testing performed at: [facility] [place] [facility], [address] [place] [address], [address] [place] [address], [id number], Jigger Artisan: Mariano Paul MD [facility] Date/Time: [facility] Results Received Date/Time: [facility] Reported Date/Time: FASTING: NOResult Comment: This test has not been validated for monitoring unfractionated heparin therapy. For testing that is validated for this type of therapy, please refer to the Heparin Anti-Xa assay (test code 22456). For additional information, please refer to http://Experenti.LinkoTec/faq/ZJJ646 (This link is being provided for informational/educational purposes only.)Performed By: #### 763X, 26F, %SBNOCULI, 3020X #### [facility] [address] [place], [place] [address]P - UR CULT REFLEXon [id number] URINE CULTURESEE NOTE NormalSelect Medical Specialty Hospital - TrumbullComment on above:Order Comment: [facility] Testing performed at: [facility], [address] [place] [address], [address] [place] [address], [address], Jigger Artisan: Mariano Paul MD [facility] Collection Date/Time: [id number] [facility] Results Received Date/Time: [id number] [facility] Reported Date/Time: FASTING: NOResult Comment: NO CULTURE INDICATEDPerformed By: #### 763X, 26F, %SBNOCULI, 3020X #### [facility] [address] [place], [place] [address]U - URINALYSIS,COMPLETE,WITH REFLEX TO CULTUREon 12-21-2021 Appearance (U)CLEARNormalCLEARUniversity Hospitals Cleveland Medical Center SpecialistComment on above: Order Comment: [facility] Testing performed at: [employer], [employer] [facility], [address] , [address] [place] [address], [address] [place] [address], Jigger Artisan: Mariano Paul MD [facility] Collection Date/Time: [facility] Results Received Date/Time: [facility] Reported Date/Time: FASTING: NOPerformed By: #### 763X, 26F, %SBNOCULI, 3020X #### [facility] [address] [place], [place] [address]BVJFZBMZHGCT SEENNormalNONE SEENUniversity Hospitals Cleveland Medical Center Specialist Comment on above:Order Comment: [facility] Testing performed at: [facility], [address] , [address] [place] [address], [address] [place] [address], Jigger Artisan: Mariano Paul MD [facility] Collection Date/Time: [facility] Results Received Date/Time: [facility] Reported Date/Time: FASTING: NOPerformed By: #### 763X, 26F, %SBNOCULI, 3020X #### [facility] [address] [place], [place] [address]Fqfnhsddt Ql (U)NegativeNormalNEGATIVEUniversity Hospitals Cleveland Medical Center SpecialistComment on above:Order Comment: [facility] Testing performed at: [facility], [address] , [address] [place] [address], [address] [place] [address], Jigger Artisan: Mariano Paul MD [facility] Collection Date/Time: [facility] Results Received Date/Time: [facility] Reported Date/Time: FASTING: NOPerformed By: #### 763X, 26F, %SBNOCULI, 3020X #### [facility] [address] [place], [place] [address]Ifqek (U)DARK YELLOWNormalYELLOWUniversity Hospitals Cleveland Medical Center Specialist Comment on above:Order Comment: [facility] Testing performed at: [employer], [employer] [facility], [address] [facility], [address] [place] [address], [address] [place] [address], Jigger Artisan: Mariano Paul MD [facility] Collection Date/Time: [facility] Results Received Date/Time: [facility] Reported Date/Time: FASTING: NOPerformed By: #### 763X, 26F, %SBNOCULI, 3020X #### [facility] [address] [place], [place] [address]Iptyjyj Ql (U)NegativeNormalNEGATIVEUniversity Hospitals Cleveland Medical Center SpecialistComment on above:Order Comment: [facility] Testing performed at: [employer], [employer] [facility], [address] [facility], [address] [place] [address], [address] [place] [address], Jigger Artisan: Mariano Paul MD [facility] Collection Date/Time: [facility] Results Received Date/Time: [facility] Reported Date/Time: FASTING: NOPerformed By: #### 763X, 26F, %SBNOCULI, 3020X #### [facility] [address] [place], [place] [address]PUUKZDE CASTNONE SEENNormalNONE SEENUniversity Hospitals Cleveland Medical Center SpecialistComment on above:Order Comment: [facility] Testing performed at: [employer], [employer] [facility], [address] [facility], [address] [place] [address], [address] [place] [address], Jigger Artisan: Mariano Paul MD [facility] Collection Date/Time: [facility] Results Received Date/Time: [facility] Reported Date/Time: FASTING: NOPerformed By: #### 763X, 26F, %SBNOCULI, 3020X #### [facility] [address] [place], [place] [address]Aozkvni Ql (U)TRACEAbnormalNEGMorrow County HospitalComtrinity health [facility] on above:Order Comment: [facility] Testing performed at: [employer], [employer] [facility], [address] , [address] [place] [address], [address] [place] [address], Jigger Artisan: Mariano Paul MD [facility] Collection Date/Time: [facility] Results Received Date/Time: [facility] Reported Date/Time: FASTING: NOPerformed By: #### 763X, 26F, %SBNOCULI, 3020X #### [facility] [address] [place], [place] [address]Ntgrutiij esterase Test strip Ql (U)NegativeNormalNEGOhioHealth Hardin Memorial HospitalComment on above:Order Comment: [facility] Testing performed at: [employer], [employer] [facility], [address] , [address] [place] [address], [address] [place] [address], Jigger Artisan: Mariano Paul MD [facility] Collection Date/Time: [facility] Results Received Date/Time: [facility] Reported Date/Time: FASTING: NOPerformed By: #### 763X, 26F, %SBNOCULI, 3020X #### [facility] [address] [place], [place] [address]Ohgdqgj Ql (U)NegativeNormalNEGPremier Health Upper Valley Medical Center SpecialistComment on above:Order Comment: [facility] Testing performed at: [employer], [employer] [facility], [address] , [address] [place] [address], [address] [place] [address], Jigger Artisan: Mariano Paul MD [facility] Collection Date/Time: [facility] Results Received Date/Time: [facility] Reported Date/Time: FASTING: NOPerformed By: #### 763X, 26F, %SBNOCULI, 3020X #### [facility] [address] [place], [place] [address]GPRNXM BLOODNegativeNormalNEGATIVENoBarnesville Hospital SpecialistComment on above:Order Comment: [facility] Testing performed at: [employer], [employer] [facility], [address] , [address] [place] [address], [address] [place] [address], Jigger Artisan: Mariano Paul MD [facility] Collection Date/Time: [facility] Results Received Date/Time: [facility] Reported Date/Time: FASTING: NOPerformed By: #### 763X, 26F, %SBNOCULI, 3020X #### [facility] [address] [place], [place] [address]lX (U)[pH]Normal5.0-8.0NortherCleveland Clinic [facility] SpecialistComment on above:Order Comment: [facility] Testing performed at: [employer], [employer] [facility], [address] , [address] [place] [address], [address] [place] [address], Jigger Artisan: Mariano Paul MD [facility] Collection Date/Time: [facility] Results Received Date/Time: [facility] Reported Date/Time: FASTING: NOPerformed By: #### 763X, 26F, %SBNOCULI, 3020X #### [facility] Default [address] [place], [place] [address]Kollzdy Ql (U)TRACEAbnormalNEGATIVENortsummit healthcare regional medical centern [facility] SpecialistComment on above:Order Comment: [facility] Testing performed at: [employer], [employer] [facility], [address] , [address] [place] [address], [address] [place] [address], Jigger Artisan: Mariano Paul MD [facility] Collection Date/Time: [facility] Results Received Date/Time: [facility] Reported Date/Time: FASTING: NOPerformed By: #### 763X, 26F, %SBNOCULI, 3020X #### [facility] [address] [place], [place] [address]NIMJHTC SEENNormal< OR = 2[facility] SpecialistComment on above:Order Comment: [facility] Testing performed at: [employer], [employer] [facility], [address] [place] [address], [address] [place] [address], [address] [place] [address], Jigger Artisan: Mariano Paul MD [facility] Collection Date/Time: [facility] Results Received Date/Time: [facility] Reported Date/Time: FASTING: NOPerformed By: #### 763X, 26F, %SBNOCULI, 3020X #### [facility] [address] [place], [place] [address]Koqijqax gravity (U) [Rel density]1.403Bpmevd5.001-1.035[facility] SpecialistComment on above:Order Comment: [facility] performed at: [employer], [employer] [facility], [address] [place] [address], [address] [place] [address], [address] [place] [address], Jigger Artisan: Mariano Paul MD [facility] Collection Date/Time: [facility] Results Received Date/Time: [facility] Reported Date/Time: FASTING: NOPerformed By: #### 763X, 26F, %SBNOCULI, 3020X #### [facility] [address] [place], [place] [address]IJMOYWHV EPITHELIAL CELLSNONE SEENNormal< OR = 5[facility] SpecialistComment on above:Order Comment: [facility] performed at: [employer], [employer] [facility], [address] [place] [address], [address] [place] [address], [address] [place] [address], Jigger Artisan: Mariano Paul MD [facility] Collection Date/Time: [facility] Results Received Date/Time: [facility] Reported Date/Time: FASTING: NOPerformed By: #### 763X, 26F, %SBNOCULI, 3020X #### [facility] Default [address] [place], [place] [address]ZOVLTCG SEENNormal< OR = 5[facility] [place] [facility] SpecialistComment on above:Order Comment: [facility] Testing performed at: [employer], [facility], [address] [facility], [address] [facility], [place], [address], Jigger Artisan: Mariano Paul MD [facility] Collection Date/Time: [facility] Results Received Date/Time: [facility] Reported Date/Time: FASTING: NOPerformed By: #### 763X, 26F, %SBNOCULI, 3020X #### [facility] Default [address] [place], [place] [address]Fjmcagjf Blood Count with Auto Diffon [id number] (Bld) [#/Vol]0.03 10*3/uLNormal0.00-0.20[facility] SpecialistComment on above:Performed By: #### CBCAD, CMP #### [facility] [address] [place], [place] [id number]/100 WBC (Bld)0.3 %NormalNortOhioHealth Van Wert Hospital Medical SpecialistComment on above:Performed By: #### CBCAD, CMP #### [facility] [address] [place], [place] [id number] (Bld) [#/Vol]0.02 10*3/uLNormal0.02-0.50[facility] [place] [facility] SpecialistComment on above:Performed By: #### CBCAD, CMP #### [facility] [address] [place], [place] [id number]/100 WBC (Bld)0.2 %NormalNortOhioHealth Van Wert Hospital Medical SpecialistComment on above:Performed By: #### CBCAD, CMP #### [facility] [address] [place], [place] [id number] distribution width (RBC) [Ratio]14.3 %Normal 11.0-15.0Nortsummit healthcare regional medical centern [place] [facility] SpecialistComment on above:Performed By: #### CBCAD, CMP #### [facility] [address] [place], [place] [id number] (Bld) [Volume fraction]46.9 %Femxlh04.0-47.0 [facility] SpecialistComment on above:Performed By: #### CBCAD, CMP #### [facility] [address] [place], [place] [id number] (Bld) [Mass/Vol]14.3 g/uPZvlxsm37.6-15.5NoBarnesville Hospital SpecialistComment on above:Performed By: #### CBCAD, CMP #### [facility] [address] [place], [place] [id number] (Bld) [#/Vol]2.2 10*3/uLNormal0.9-3.9NoBarnesville Hospital SpecialistComment on above:Performed By: #### CBCAD, CMP #### [facility] [address] [place], [place] [id number]/100 WBC (Bld)19.7 %NormalUniversity Hospitals Cleveland [facility] Center SpecialistComment on above:Performed By: #### CBCAD, CMP #### [facility] [address] [place], [place] [id number] (RBC) [Entitic mass]30.0 kbQqagfg15.0-33.0[facility] SpecialistComment on above:Performed By: #### CBCAD, CMP #### [facility] [address] [place], [place] [id number] (RBC) [Mass/Vol]30.5 g/dLLow32.0-36.0[facility] SpecialistComment on above:Performed By: #### CBCAD, CMP #### [facility] [address] [place], [place] [id number] (RBC) [Entitic vol]98 xOFvazvy69-131Hzohsyty [place] [facility] SpecialistComment on above:Performed By: #### CBCAD, CMP #### [facility] [address] [place], [place] [id number] (Bld) [#/Vol]0.5 10*3/uLNormal0.2-0.9[facility] [place] [facility] SpecialistComment on above:Performed By: #### CBCAD, CMP #### [facility] [address] [place], [place] [id number]/100 WBC (Bld)4.3 %NormalUniversity Hospitals Cleveland [facility] Center SpecialistComment on above:Performed By: #### CBCAD, CMP #### [facility] [address] [place], [place] [id number] (Bld) [#/Vol]8.3 10*3/uLHigh1.5-7.8NortGalion Hospital SpecialistComment on above:Performed By: #### CBCAD, CMP #### [facility] [address] [place], [place] [id number]/100 WBC (Bld)75.2 %NormalNoBarnesville Hospital SpecialistComment on above:Performed By: #### CBCAD, CMP #### [facility] [address] [place], [place] [id number] mean volume (Bld) [Entitic vol]10.80 fLNormal 7.50-12.50NoBarnesville Hospital SpecialistComment on above:Performed By: #### CBCAD, CMP #### [facility] [address] [place], [place] [id number] (Bld) [#/Vol]303 10*3/gLEisvdk337-776Ztwxapxh [place] [facility] SpecialistComment on above:Performed By: #### CBCAD, CMP #### [facility] [address] [place], [place] [id number] (Bld) [#/Vol]4.77 10*6/uLNormal3.90-5.20NoBarnesville Hospital SpecialistComment on above:Performed By: #### CBCAD, CMP #### [facility] [address] [place], [place] [id number]-IE74.3 uHSaki03.0-50.0NoBarnesville Hospital Specialist Comment on above:Performed By: #### CBCAD, CMP #### [facility] [address] [place], [place] [id number] (Bld) [#/Vol]11.1 10*3/uLHigh3.8-11.0NoBarnesville Hospital SpecialistComment on above:Performed By: #### BRIDGET, CMP #### [facility] [address] [place], [place] [id number] Metabolic Panelon 08-66-1910Drjukdg [Mass/Vol] 5.0 g/dLNormal3.6-5.1[facility] SpecialistComment on above:Performed By: #### CBCMAINE, CMP #### [facility] [address] [place], [place] [id number]/Globulin [Mass ratio]1.9 {ratio}Normal1.0-2.5NoBarnesville Hospital SpecialistComment on above:Performed By: #### CBCMAINE, CMP #### [facility] [address] [place], [place] [id number] [Catalytic activity/Vol]68 U/KTbcwqz89-121Galxycwp [place] [facility] SpecialistComment on above:Performed By: #### CBCMAINE, CMP #### [facility] [address] [place], [place] [id number] [Catalytic activity/Vol]112 U/LHigh6-33NoBarnesville Hospital SpecialistComment on above:Result Comment: 10/04/2021 Female reference range changed.Performed By: #### CBCMAINE, CMP #### [facility] [address] [place], [place] [id number] gap [Moles/Vol]21 mmol/ECdzu56-18KjjayrxhBarnesville Hospital SpecialistComment on above:Result Comment: Effective 11/09/2019 reference range changed.Performed By: #### CBCMAINE, CMP #### [facility] [address] [place], [place] [id number] [Catalytic activity/Vol]84 U/LHigh9-34NoBarnesville Hospital SpecialistComment on above:Performed By: #### CBCAD, CMP #### [facility] [address] [place], [place] [id number] [Mass/Vol]1.12 mg/dLNormal0.30-1.20[facility] [place] [facility] SpecialistComment on above:Performed By: #### CBCAD, CMP #### [facility] [address] [place], [place] [id number]/CREA30 RatioHigh6-22Nortsummit healthcare regional medical centern [place] [employer]oring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 Helper Comment on above:Performed By: #### CBCAD, CMP #### [facility] [address] [place], [place] [id number] [Mass/Vol]10.0 mg/dLNormal8.6-10.2[facility] [place] [facility] SpecialistComment on above:Performed By: #### CBCAD, CMP #### [facility] [address] [place], [place] [id number] [Moles/Vol]101 mmol/PEuyisl01-974Zuxclsdw [facility] SpecialistComment on above:Performed By: #### CBCAD, CMP #### [facility] [address] [place], [place] [id number] [Moles/Vol]19 mmol/DObm60-35Jjwriokr [place] [facility] SpecialistComment on above:Performed By: #### CBCAD, CMP #### [facility] [address] [place], [place] [id number] [Mass/Vol]0.8 mg/dLNormal0.6-1.4Nortsummit healthcare regional medical centern [place] [facility] SpecialistComment on above:Performed By: #### CBCAD, CMP #### [facility] [address] [place], [place] [id number] mL/min/1.64p9Coxiub>60NortOhioHealth Van Wert Hospital Medical SpecialistComment on above:Performed By: #### CBCAD, CMP #### [facility] [address] [place], [place] [id number] mL/min/1.38i6Bplkcw>60NortherGerman Hospital Medical SpecialistComment on above:Performed By: #### CBCAD, CMP #### [facility] [address] [place], [place] [id number] (S) [Mass/Vol]2.6 g/dLNormal1.9-3.7NoBarnesville Hospital SpecialistComment on above:Performed By: #### BRIDGET, CMP #### [facility] [address] [place], [place] [id number] [Mass/Vol]154 mg/eRZuhs68-82Fbnpgmqh [place] [facility] SpecialistComment on above:Result Comment: For FASTING Glucose --- ADA reference ranges: Normal 65-99 mg/dl Prediabetes 100-125 Diabetes >/= 126Performed By: #### BRIDGET, CMP #### [facility] [address] [place], [place] [id number] [Moles/Vol]4.5 mmol/LNormal3.5-5.5NoBarnesville Hospital SpecialistComment on above:Performed By: #### BRIDGET, CMP #### [facility] [address] [place], [place] [id number] [Mass/Vol]7.6 g/dLNormal6.1-8.1[facility] SpecialistComment on above:Performed By: #### BRIDGET, CMP #### [facility] [address] [place], [place] [id number] [Moles/Vol]137 mmol/TGtinvw770-944Wbjeiqll [place] [facility] SpecialistComment on above:Performed By: #### BRIDGET, CMP #### [facility] [address] [place], [place] [id number] nitrogen [Mass/Vol]24 mg/dLNormal7-25NoBarnesville Hospital SpecialistComment on above:Performed By: #### BRIDGET, CMP #### [facility] [address] [place], [place] [id number] 59-48-1901ZOVRIlnkmjewf (HEMASA) UZMA RAMIREZ ([id number]) 1955 F Date Time Provider Department 03/02/21 [...] [Z96.649] Encounter Status:Closed by HAILEY ARJUN on 03/02/21NoAdena Fayette Medical CenterCNJame [id number] (NCCAP) UZMA RAMIREZ ([id number]) 1955 F Date Time Provider Department 02/21/21 ERROL CORBIN During your visit today, we recorded the following information about you: Caterina Weston [facility] 02/21/2021 9:58 AM Signed Pt is scheduled at [facility] for bone density and yayo screen mammogram. Dr Corbin, can you please review and place orders in [facility] to be faxed? Thanks! Katia Rojas RN 02/21/2021 11:17 AM Signed Orders pended. Please review and approve. Thanks, ADELSO Moore 02/21/2021 12:33 PM Signed Signed. Lilia Castro APRN.SOREN Villar [facility] 02/21/2021 12:54 PM Signed Faxed to [facility] Allergies As of Date: 02/21/2021 Noted [...] without current pathological fracture [M81.0] Order(s):DXA-AXIAL SKELETON [[id number]] Order #: [id number] FUTURE JOHANN SCREENING [[id number]] Order #: [id number] FUTURE Prescriptions as of 02/21/2021 Sig: ROSUVASTATIN [...] [Z96.649] Encounter Status:Closed by CATERINA MADERA on 04/14/21NoAdena [facility] Vital Signs Date TimeVital SignValuePerforming QdapigkejXihldovz67-64-4857 11:21-0400 Diastolic blood yjpwobhi28 mm[Hg]Florinda Flowers MD Work Phone: [phone])[address]10-22-2025 11:21-0400 Heart rate55 /minFlorinda Flowers MD Work Phone: [phone])[address]10-22-2025 11:21-0400 Systolic blood rqedmyxy801 mm[Hg]Florinda Flowers MD Work Phone: [phone] [address]10-22-2025 11:07-0400 Body .64 cmFlorinda Flowers MD Work Phone: [phone] [address]10-22-2025 11:07-0400 Body mass index (BMI) [Ratio]30.2 kg/e4IkftvjFlorinda Flowers MD Work Phone: [phone])[address]10-22-2025 11:07-0400 Body xnselv28.82 kgFlorinda Flowers MD Work Phone: [phone] [address]07-02-2025 10:46-0400 Body fxgqya103.64 cmFlorinda Flowers MD Work Phone: [phone])[address]07-02-2025 10:46-0400 Body mass index (BMI) [Ratio]30.4 kg/n1NofconFlorinda Flowers MD Work Phone: [facility]07-02-2025 10:46-0400 Body ifqzwr89.72 kgFlorinda Flowers MD Work Phone: [facility]07-02-2025 10:46-0400 Diastolic blood cvqjqysm76 mm[Hg]Florinda Flowers MD Work Phone: [facility]07-02-2025 10:46-0400 Heart rate69 /minFlorinda Flowers MD Work Phone: [facility]07-02-2025 10:46-0400 Systolic blood ceemctxs564 mm[Hg]Florinda Flowers MD Work Phone: [phone]04-15-2025 11:14-0400 Body jyergj054.6 cmAngsowmya Julir 4TH GRADE MATH TEACHER Work Phone: [facility] SystemRkhonwljui55-59-2947 11:14-0400Body mass index (BMI) [Ratio]30.51 kg/z5Kjeyir Gillmor 4TH GRADE MATH TEACHER Work Phone: [facility] SystemQrofzwssel71-36-5988 11:14-0400Body .73 kgAngela Еленаmor 4TH GRADE MATH TEACHER Work Phone: [facility] SystemPljedvabes53-17-8824 11:14-0400Diastolic blood gtyjpbcj84 mm[Hg]Uzma Christiansenmor 4TH GRADE MATH TEACHER Work Phone: [facility] SystemUykwemvqel08-53-6531 11:14-0400Heart rate58 /min Uzma Еленаmor 4TH GRADE MATH TEACHER Work Phone: [place] [address]Ghtndtfnas18-80-1133 11:14-0400Systolic blood fluyltir604 mm[Hg]Uzma Еленаmor 4TH GRADE MATH TEACHER Work Phone: [facility] SystemUatmtnnasq29-54-3258 11:17-0400Body lscygy799.6 cmNicole Brinda DO Work Phone: [facility] SystemMuooendhad19-97-1748 11:17-0400Body mass index (BMI) [Ratio]30.51 kg/a9Uzlxnx Brinda DO Work Phone: noRipley County [facility] HospitalAnwbcdiyzy17-99-7101 11:17-040Body xufzir69.73 kgNicemanuel Barretoner DO Work Phone: noRipley County Memorial HospitalSgwmhhthqs94-66-2268 11:17-0400Diastolic blood exalcdsp04 mm[Hg]Mc Barretoner DO Work Phone: [facility] SystemIchwsltmcw99-50-5254 11:17-0400Heart rate53 /min Mc Brinda DO Work Phone: [place] [address]Qvoufauarz76-95-4629 11:172502YmP8% (BldA) [Mass fraction]95 %Mc Parry DO Work Phone: noRipley County Memorial HospitalJeqbrfroym37-92-0209 11:17-040Systolic blood byncpfye540 mm[Hg]Mc Parry DO Work Phone: [facility] SystemPaffweufrk42-94-3103 10:42-0500Body mass index (BMI) [Ratio]29.24 kg/j0XkfykmuMaria L Bean APRN-SENIOR PORTFOLIO ANALYST Work Phone: [facility]11-13-2024 10:42-0500Body thuyeh09.69 kgMaria L Bean APRN-SENIOR PORTFOLIO ANALYST Work Phone: [facility]10-30-2024 09:22-0400Body uvtqsn894.2 cmRehana Quintanillas DO Work Phone: [facility]10-30-2024 09:22-0400Body mass index (BMI) [Ratio]29.13 kg/g0SfsivzeRehana Quintanillas DO Work Phone: [facility]10-30-2024 09:22-0400Body jglbia40.37 kgMiclennox Quintanillas DO Work Phone: [facility]10-30-2024 09:22-0400Diastolic blood ivtjncxz07 mm[Hg]Rehana Reinoso DO Work Phone: [facility]10-30-2024 09:22-0400Heart rate 60 /minRehana Reinoso DO Work Phone: [facility]10-30-2024 09:22-0400Systolic blood uyjiswjr573 mm[Hg]Rehana Reinoso DO Work Phone: [facility]10-18-2024 10:58-0400Body xuzaxp116.1 cmMD Florinda Flowers Work Phone: [phone]10-18-2024 10:58-0400 Body mass index (BMI) [Ratio]30.9 kg/m2MD Florinda Flowers Work Phone: [phone]81[facility]10-18-2024 10:58-0400 Body pqwzah57.36 kgMD Florinda Flowers Work Phone: [phone]32[facility]10-18-2024 10:58-0400 Diastolic blood mm[Hg]MD Florinda Flowers Work Phone: [phone]10-18-2024 10:58-0400 Heart rate80 /minMD Florinda Flowers Work Phone: [phone]10-18-2024 10:58-0400 Systolic blood mm[Hg]MD Florinda Flowers Work Phone: [phone]03-01-2024 11:09-0500 Body dhyzwg083.6 cmMaria L Bean HEADER SETUP OPERATOR-SENIOR PORTFOLIO ANALYST Work Phone: [facility]03-01-2024 11:09-0500Body mass index (BMI) [Ratio]28.57 kg/q5TacfmpcMaria L Bean HEADER SETUP OPERATOR-SENIOR PORTFOLIO ANALYST Work Phone: [facility]03-01-2024 11:09-0500Body shutpy14.29 kgMaria L Bean HEADER SETUP OPERATOR-SENIOR PORTFOLIO ANALYST Work Phone: [facility]03-01-2024 11:09-0500Diastolic blood qveclxwy77 mm[Hg]Maria L Bean HEADER SETUP OPERATOR-SENIOR PORTFOLIO ANALYST Work Phone: [facility] Hqearb62-28-6859 11:09-0500Systolic blood mzkliyiv758 mm[Hg]Maria L Bean HEADER SETUP OPERATOR-SENIOR PORTFOLIO ANALYST Work Phone: [facility] Jvxosr46-70-5093 10:30-0400Body .64 cmFlorinda Flowers Other [employer] Other 08-15-2023 10:30-0400Body mass index (BMI) [Ratio] 28.73 kg/c0UrmbmxFlorinda Flowers Other [employer] Other 08-15-2023 10:30-0400Body gmmzop97.74 kgFlorinda Flowers Other [employer] Other 08-15-2023 10:30-0400Diastolic blood ujqkhzsy71 mm[Hg] Florinda Flowers Other [employer] Other 08-15-2023 10:30-0400Systolic blood rkpftuuo381 mm[Hg] Florinda Flowers Other [employer] Other 02-20-2023 10:00-0500Body hcosfc178.64 cmFlorinda Flowers Other [employer] Other 02-20-2023 10:00-0500Body mass index (BMI) [Ratio] 30.02 kg/r7ZhucoiFlorinda Flowers Other [employer] Other 02-20-2023 10:00-0500Body rvktly20.37 kgFlorinda Flowers Other [employer] Other 02-20-2023 10:00-0500Diastolic blood cdkwrrto78 mm[Hg] Florinda Flowers Other [employer] Other 02-20-2023 10:00-0500Systolic blood xjwwljix981 mm[Hg] Florinda Flowers Other [employer] Other 11-27-2022 12:00-0500Body oofhof408.64 cmPameltianna Wyatt Other [employer] Other 11-27-2022 12:00-0500Body mass index (BMI) [Ratio] 29.53 kg/k1Doudmw Dymond Other [employer] Other 11-27-2022 12:00-0500Body sghmmymtbkv13.3 [degF]Eilzabeth Yoselin Other [employer] Other 11-27-2022 12:00-0500Body ytpxsf71.01 kgPalogan Wyatt Other [employer] Other 11-27-2022 12:00-0500Respiratory rate18 /minElizabeth Wyatt Other [employer] Other 11-27-2022 12:00-3405YpF6% (BldA) [Mass fraction]99 % Elizabeth Francomond Other [employer] Other 10-11-2022 15:20-0400Body pomdyt386.64 Son Rizvi Other [employer] Other 10-11-2022 15:20-0400Body mass index (BMI) [Ratio]30.5 kg/m2Teetee Rizvi Other [employer] Other 10-11-2022 15:20-0400Body rqlacadmyxq75.2 [degF]Teetee Rizvi Other [employer] Other 10-11-2022 15:20-0400Body avbtfn30.73 kgTeetee Rizvi Other [employer] Other 10-11-2022 15:20-0400Diastolic blood derukeir95 mm[Hg] Teetee Rizvi Other [facility] [employer] Other 10-11-2022 15:20-0400Respiratory rate18 /minTeetee Rizvi Other [employer] Other 10-11-2022 15:20-7372NqV3% (BldA) [Mass fraction]96 % Teetee Rizvi Other [facility] [employer] Other 10-11-2022 15:20-0400Systolic blood gxmldoub527 mm[Hg] Teetee Rizvi Other [employer] Other 09-16-2022 13:49-0400Body zgsamw993.64 cmFlorinda Flowers Work Phone: [phone]-Mceyn [place] [employer] [address] DO Work Phone: 1(253) 970-523009-16-2022 13:49-0400Diastolic blood mdmfdbcu95 mm[Hg] Florinda Flowers Work Phone: [phone]-Ojwhm [place] [employer] [address] DO Work Phone: 1(957) 238-480809-16-2022 13:49-0400Heart rate66 /minFlorinda Flowers Work Phone: [phone]-Fwtbc [place] [employer] [address] DO Work Phone: 1(180) [phone] 13:49-0400Systolic blood zzoskuyi462 mm[Hg] Florinda Flowers Work Phone: [phone]) [phone]-Xksff [facility] [address] DO Work Phone: 1(524) 295-766608-31-2022 12:06-0400Diastolic blood vbfphton97 mm[Hg] MD Florinda Flowers Work Phone: [facility]08-31-2022 12:06-0400 Heart rate62 /minMD Florinda Flowers Work Phone: [facility]08-31-2022 12:06-0400 Respiratory rate16 /minMD Florinda Flowers Work Phone: [phone]08-31-2022 12:06-0400 SaO2% (BldA) [Mass fraction]95 %MD Florinda Flowers Work Phone: [facility]08-31-2022 12:06-0400 Systolic blood mm[Hg]MD Florinda Flowers Work Phone: [facility]08-31-2022 09:23-0400 Body lxaryk343.64 cmMD Florinda Flowers Work Phone: [facility]08-31-2022 09:23-0400 Body jfvkfi00.72 kgMD Florinda Flowers Work Phone: [phone]08-09-2022 17:20-0400 Body vscjki303.64 Son Rizvi Other [employer] Other 08-09-2022 17:20-0400Body mass index (BMI) [Ratio]30.5 kg/m2Teetee Rizvi Other [facility] [employer] Other 08-09-2022 17:20-0400Body ozbxgdnfdzm25 [degF]Teetee Rizvi Other [employer] Other 08-09-2022 17:20-0400Body hwvwyd92.73 kgTeetee Rizvi Other [employer] Other 08-09-2022 17:20-0400Diastolic blood abdfhask14 mm[Hg] Teetee Rizvi Other [employer] Other 08-09-2022 17:20-0400Respiratory rate18 /minTeetee Rizvi Other [employer] Other 08-09-2022 17:20-5897UjO9% (BldA) [Mass fraction]97 % Teetee Rizvi Other [employer] Other 08-09-2022 17:20-0400Systolic blood ebzewyjm741 mm[Hg] Teetee Rizvi Other [facility] [employer] Other Encounters Encounter DateEncounter TypeCare ProviderFacilityStart: 08-25-2025 End: 35-91-3583Jtyiqmvre encounterMarobson SMITH Work Phone: noms [facility]opaedicsStart: 08-25-2025 End: 14-72-6153yrzgcnoiwwDeviar E Braun MD Work Phone: -[facility] ClinicStart: 08-25-2025 End: 27-05-7475Rinncvb encounter procedureFlorinda Flowers MD-[facility] Work Phone: Start: 08-20-2025 End: 21-82-4293Dqgare Oneida SMITH Work Phone: noms [place] [facility]opaedicsStart: 08-20-2025 End: 28-25-1030Cbzwby Oneida SMITH Work Phone: [facility] [place] OrthopaedicsStart: 08-20-2025 End: 94-50-8622Pwenpdlmj Result EncounterMarobson SMITH Work Phone: noms External Department UnsolicitedStart: 08-20-2025 Non-patient / Non-visitFlorinda Flowers MD-[facility] Work Phone: Start: 08-20-2025 End: 79-19-9778Sgsiqm outpatient visit 25 minutesMarobson SMITH Work Phone: noms [place] OrthopaedicsComment on above:Acute right hip pain (Primary Dx); History of total right hip replacement; Right hip pain; Acute pain of left shoulder; PolyarthralgiaStart: 08-20-2025 End: 23-21-6830vecltxexrwNHEETHS J MEYERNot AvailableStart: 05-05-2025 End: 67-40-3340pfsgpwnkmwKcafdv E Braun MD Work Phone: [facility] Work Phone: Start: 05-05-2025 End: 45-48-3850Pewsaed encounter procedureUzma Nicole APRNEncompass Health [facility] Work Phone: Start: 02-16-2025 End: 98-07-3739eywryeutlxNGADVV GILLMORNot AvailableStart: 02-16-2025 End: 40-69-3411Xuqlqz outpatient visit 25 minutesUzma Joel NP Work Phone: ana VASQUEZUEComment on above:Other insomnia (Primary Dx); Other chronic pain; Primary progressive aphasia (CMS/HCC); Bereavement; Memory lossStart: 02-15-2025 End: 31-82-3674Aumhmve encounter procedureMigel Dunlap PhD Work Phone: ana SANDCHELSIEYComment on above:Primary progressive aphasia (CMS/HCC) (Primary Dx); Memory loss; Other insomnia; Bereavement; 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); Word finding difficulty; Primary insomnia; Depression, unspecified depression type (CMS/HCC)Start: 02-15-2025 End: 26-78-1309zsdowxowflFGCANSOL DENBESTENNot AvailableStart: 02-15-2025 End: 87-22-1959Sdhyps flowsheetMigel Pozosten PhD Work Phone: aGUY MONICAUSKYStart: 02-15-2025 End: 71-38-4535Uiaoep flowsClifford Dunlap PhD Work Phone: aGUY SANDUSKYStart: 02-02-2025 End: 83-09-5496wzjykpfnueAM., STEPANICNot AvailableStart: 02-02-2025 End: 61-46-7147Wfqygef encounter procedureMigle Dunlap PhD Work Phone: aGUY RHONAomment on above:Primary progressive aphasia (CMS/HCC) (Primary Dx); Memory loss; Other insomnia; Bereavement; 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)Start: 01-20-2025 End: 25-48-0422kyfcquuhszQSSKKL DANNERNot AvailableStart: 01-18-2025 End: 16-26-4112jzonoercqfERRNCZGF DENBESTENNot AvailableStart: 01-14-2025 End: 05-95-4682Jmvsup flowsheetNicole Brinda DO Work Phone: aGUY BELLEVUEStart: 01-14-2025 End: 80-87-9143Naworx flowsheetNicole Brinda DO Work Phone: aGUY BELLEVUEStart: 01-14-2025 End: 79-64-5310Ffrbnh outpatient new 45 minutesNicole Brinda DO Work Phone: ana VASQUEZUEComment on above:Memory loss (Primary Dx); Primary insomnia; Pseudodementia; Depression, unspecified depression type (CMS/HCC)Start: 01-14-2025 End: 79-48-4839msgoqcbimwYJBMGG DANNERNot AvailableStart: 38-32-0923Xilowam encounter Rosibel Flowers MD Work Phone: [facility] Hospitaltart: 12-02-2024 End: 55-98-5151Gdlgmj flowsheetJr. Dell Antoinette Stepanic DO Work Phone: n[facility] ORTHOStart: 12-02-2024 End: 91-73-6497Xozmiv flowsheetJr. Dell Antoinette Starkanic DO Work Phone: noms [facility] ORTHOStart: 12-02-2024 End: 94-18-9508wpiynjuuxaMR., DELL Curry STEPANICNot AvailableStart: 12-02-2024 End: 25-00-4009Mwyqiy outpatient visit 15 minutesJr. Dell Antoinette Adrian DO Work Phone: noms [facility] ORTHOComment on above:S/P TKR (total knee replacement), right (Primary Dx); Acute pain of left knee; History of left knee replacementStart: 09-16-2024 End: 71-12-5209Stwhnk follow up visit related to original [facility] HEADER SETUP OPERATORBR[facility] Work Phone: [facility] General SurgeryComment on above: Inclusion cyst (Primary Dx)Start: 09-16-2024 End: 89-67-6487pyxppaewgsQNZDLLELincoln Hospital Ambulatory P[facility] Start: 09-14-2024 End: 26-55-4918Gfoagl OnlyNot In System Ref [facility] HospitalPro[facility] General SurgeryStart: 09-08-2024 End: 91-27-6336eztqinibhsHC Marcia E Braun Work Phone: [facility] SystemComment on above:Inclusion cyst Start: 09-08-2024 End: 09-47-1797Nlczpkrs ReferredMD Florinda Flowers Work Phone: [facility]-LAB Path Spec [place] HospStart: 09-02-2024 End: 38-74-4780Fbxfpi outpatient new 20 minutesMicHollywood Medical Center DO Work Phone: [facility] General SurgeryComment on above: Inclusion cyst (Primary Dx)Start: 09-02-2024 End: 45-74-0589yxriksjqkxYCZWPJXKind[facility] Start: 08-21-2024 End: 91-18-6606Nauhejd encounter procedureMD Florinda Flowers Work Phone: [facility] Work Phone: Start: 02-14-2024 End: 39-01-8510Pnippbchc encounterLauren Venia CMASt [facility]bury HospitalMediwv Physicians General SurgeryStart: 02-11-2024 End: 16-18-6982Ujaliu OnlyNot In System Ref ProvProMedica Physicians General SurgeryStart: 02-05-2024 End: 17-07-7206ircsymzagsPZ Florinda Arriola Lionel Work Phone: [facility] HospitalComment on above:History of colon polypsStart: 02-05-2024 End: 47-45-1576Rgdxoznr ReferredMD Florinda Flowers Work Phone: [facility]-LAB Path Spec [place] HospStart: 10-33-9406Wpzrwv OnlyMaria L Bean HEADER SETUP OPERATOR-SENIOR PORTFOLIO ANALYST Work Phone: [facility] Physicians General SurgeryComment on above: History of colon polyps (Primary Dx)Start: 01-03-2024 End: 15-04-1388fnlkkqtcctRIFJQHJLincoln Hospital Ambulatory PPG Start: 01-03-2024 End: 50-05-1529Sitlfp outpatient visit 15 minutesMaria L Bean HEADER SETUP OPERATOR-SENIOR PORTFOLIO ANALYST Work Phone: [facility] SurgeryComment on above: History of colon polyps (Primary Dx)Start: 10-29-2023 End: 71-04-5339leaenbhrjcLyazla Braun Other [employer] Other Start: 95-43-9693Uvyohhefz encounterMarcitianna Kaur [facility] Dallastart: 08-19-2023 End: 50-48-1209gcvjopsoggUbblpp Braun Other [employer] Other Start: 94-89-6158Qwuocxbfh encounterMarcia Natasha [facility] ClinicStart: 08-05-2023 End: 96-55-7349fyfuvrbpqyXwnzow Flowers Other [employer] Other Start: 06-87-3384Jznobybze encounterMarcitianna Melendez [facility] ClinicStart: 06-18-2023 End: 32-95-9592tqrrqmiaxgTpmjhg Flowers Other [employer] Other Start: 02-12-5388Mhdcqiaey for other preprocedural examinationMarcitianna Melendez [facility] ClinicStart: 15-04-7971Ixbyvf outpatient visit 25 minutesMarsaleem Melendez [facility] ClinicStart: 03-12-2023 End: 76-04-9783zmmyrslabaKskgqf Flowers Other [employer] Other Start: 07-05-3044Varnavylf encounterMarcia Natasha [facility]endez [facility] ClinicStart: 02-20-2023 End: 71-59-3736nxmqqzjatbPO DOCTOR MISCFacility:X8Achji: 41-72-9906Swcvuej encounter procedureMarsaleem Melendez [facility] ClinicStart: 12-24-2022 End: 82-09-6104aceeyhtypaMD FLORINDA Arriola [facility] [employer] Other Start: 12-06-2022 End: 65-01-3191awwhekljjbWzjwnv Flowers Other [employer] Other Start: 47-66-4571Jllblhour encounterMarcitianna Melendez [facility] ClinicStart: 55-90-7399Zuqwmuocb for preprocedural laboratory examinationDR REHANA REINOSO .[facility] Centertart: 2022 End: 07-09-7720zzgiwhynuhQS REHANA REINOSO .Facility:G8Aenwk: 11-19-2022 End: 10-33-6478edufhnfizuLU REHANA REINOSO .Facility:R2Mxfgp: 11-19-2022 End: 46-65-9047Eozxkostb for preprocedural laboratory examinationDR REHANA REINOSO .Facility:S5Ktybl: 10-31-2022 End: 56-02-4670kvtuxekqnyUU DOCTOR MISCFacility:G4Uzlsd: 62-46-8312Pflcg health examinationFlorinda Flowers Other [employer] Other Start: 43-44-4580Kzxtnxkeqjmso examination normal Florinda Flowers Other [employer] Other Start: 31-02-3982Yoh-procedure evaluation checkFlorinda Flowers Other [employer] Other Start: 98-39-5326Aqbyqtewhskn cardiovascular examinationFlorinda Flowers Other [employer] Other Start: 15-37-9724Xviuhtd, abnormal examinationFlorinda Flowers Other [employer] Other Start: 09-30-2022 End: 66-31-8311tzjvtmoajxDfomll Dymond Other [employer] Other Start: 72-11-5462Typvyw outpatient visit 15 minutes Elizabeth WyattFPAbhijit Urgent Care ClydeStart: 08-14-2022 End: 86-83-1873dhpofehvhvQkgs Bakhous Other [employer] Other Start: 43-09-3609Rmgjwp outpatient visit 25 minutes Teetee Bui NephrologyStart: 08-01-2022 End: 00-69-9533ykaupfzahdLgch Bakhous Other [employer] Other Start: 61-29-9529Hxvsicmmz encounterAziz BakzaheersFPG NephrologyStart: 07-30-2022 End: 09-08-8360zyskuagxskKQ LEI PEREZFacility:H1Fsrbh: 34-28-5060Xahxzy outpatient visit 25 minutesFlorinda Zeinba Lionel Work Phone: [phone]-Qeulk [facility] [address] DO Work Phone: Start: 26-27-8349Bmpyorl encounter procedureTamarsaleem Arriola Lionel Work Phone: [phone]-Rjtox [facility] [address] DO Work Phone: Start: 60-49-0508puelcdgeesKj. Florinda Flowers Facility:31263Bxhee: 07-04-2022 End: 15-71-6758Qfisrnmpe to same day surgery centerMD Edwards Lionel Work Phone: [facility]-CT Scan [address] [place] Start: 07-02-2022 End: 32-05-7372mffpoigqoeTJ RYAN ORTIZFacility:K6Mnwxr: 07-02-2022 End: 17-58-7241genoeqyqrvNA ERROL CORBINFacility:N4Oghpt: 06-12-2022 End: 53-53-0018xztginztgcVwfe [facility] Other [employer] Other Start: 97-61-1796Rgmmxt outpatient new 45 minutesAziz WaldemarzaheersFPG NephrologyStart: 03-19-2022 End: 02-83-7360Ymthfpx encounter procedure Florinda Lionel Work Phone: [facility]-Lab Str[address] RdStart: 07-60-4343Fypxpvpww encounterErrol Corbin MD Work Phone: Hematology/OncologyComment on above:Lab OrdersStart: 12-20-2021 End: 68-53-4171Sxjwasv encounter procedure Florinda Lionel Work Phone: [facility]-XRay Str[address] RdStart: 02-15-2021 End: 84-72-2491Qumtc Mateo Corbin Work Phone: Hematology/OncologyStart: 02-02-2021 End: 70-07-5928Ogyxuww encounter procedureExternal ProviderAcmc Healthcare System Start: 88-44-7837Ayrldqj OnlyExternal ProviderExternal-NonCCF Procedures DateProcedureProcedure DetailPerforming ClinicianStart: 58-48-3976YSP CBC WITH AUTO DIFFMarobson SMITH Work Phone: Start: 69-54-1710Uptbc hip unilateral with pelvis 2-3 viewsMarobson SMITH Work Phone: Start: 86-82-5766Bmhcu i surg pathology gross examination onlyNot In System Ref ProvStart: 99-14-8184OFAHINCG NON-[facility] PROCEDUREMichael E Grillis DO Work Phone: Start: 15-84-6103Udclw i surg pathology gross examination onlyNot In System Ref ProvStart: 02-05-2024 End: 40-67-3055XzyzebltormHhufehd Tianna Bean HEADER SETUP OPERATOR-SENIOR PORTFOLIO ANALYST Work Phone: Start: 57-67-7416BeqcodzbzkxChlmwhj Carroll HEADER SETUP OPERATOR-SENIOR PORTFOLIO ANALYST Work Phone: Start: 18-54-0282Xcnsg X-ray of bilateral femursMD Florinda Flowers Work Phone: Start: 03-03-7287Mzauc X-ray of bilateral tibia and bilateral fibulaMD Florinda Flowers Work Phone: Start: 79-23-1611YIECFWEP IMAGINGExternal Provider Start: 35-89-9698MLWRHDRL LABExternal ProviderStart: 03-55-4742Qmvycbanc for malignant neoplasm of breastMarcia Lionel Other [...] Work Phone: Plan of Treatment DateCare ActivityDetailAuthorStart: 30-96-0707Jhmqr BMI ScreeningAdult BMI ScreeningAdena Health System SystemStart: 07-00-0437Fwnwkpj ScreeningTobacco ScreeningDorothea Dix Hospitaltart: 09-03-2025 End: 16-82-8398Trupbta encounter vwkggxdib46/31/2025 10:45 AM EDT Office Visit [facility] [address] [place] [address] Ryan Milton PA [address] [place] [address] NOMSharp Mesa Vista OrthopaedicsStart: 59-27-3729Wlvna BMI Screening Adult BMI ScreeningDorothea Dix Hospitaltart: 70-18-2772Sozxcku Screening Tobacco ScreeningDorothea Dix Hospitaltart: 08-20-2025 End: 08-20-2026 reactive protein [Mass/volume] in Serum or PlasmaC-reactive protein Lab Routine Polyarthralgia Expected: 08/20/2025 (Approximate), Expires: 08/20/2026NOMS HealthcareComment on above:Expected: 08/20/2025 (Approximate), Expires: 08/20/2026Start: 08-20-2025 End: 84-50-3297ZSF W Auto Differential panel - BloodCBC and differential Lab Routine Polyarthralgia Expected: 08/20/2025 (Approximate), Expires: 08/20/2026 [facility] HealthcareComment on above:Expected: 08/20/2025 (Approximate), Expires: 08/20/2026Start: 08-20-2025 End: 64-75-1329Lvougysmlqp sedimentation rateSedimentation rate, automated Lab Routine Polyarthralgia Expected: 08/20/2025 (Approximate), Expires: 08/20/2026 [facility]OM[facility] HealthcareComment on above:Expected: 08/20/2025 (Approximate), Expires: 08/20/2026Start: 08-20-2025 End: 00-67-7801JJU-B27 antigenHLA-B27 antigen Lab Routine Polyarthralgia Expected: 08/20/2025 (Approximate), Expires: 08/20/2026NONY HealthcareComment on above:Expected: 08/20/2025 (Approximate), Expires: 08/20/2026Start: 08-20-2025 End: 96-70-3795CGNJ DISEASE ANTIBODY (IGG), IMMUNOBLOTLYME DISEASE ANTIBODY (IGG), IMMUNOBLOT Lab Routine Polyarthralgia Expected: 08/20/2025 (Approximate), Expires: 08/20/2026[facility] HealthcareComment on above:Expected: 08/20/2025 (Approximate), Expires: 08/20/2026Start: 08-20-2025 End: 73-69-4557Drzsswg Ab [Titer] in Serum by ImmunofluorescenceANA Lab Routine Polyarthralgia Expected: 08/20/2025 (Approximate), Expires: 08/20/2026[facility] HealthcareComment on above:Expected: 08/20/2025 (Approximate), Expires: 08/20/2026Start: 08-20-2025 End: 70-62-7281Ivgpfdvivr factor [Units/volume] in Serum or PlasmaRheumatoid factor Lab Routine Polyarthralgia Expected: 08/20/2025 (Approximate), Expires: 08/20/2026[facility] Healthcare Work Phone: Comment on above:Expected: 08/20/2025 (Approximate), Expires: 08/20/2026Start: 08-20-2025 End: 46-75-6057OUVWDMEA LUPUS ERYTHEMATOSUS (SLE), DISEASE ACTIVITY PANEL SYSTEMIC LUPUS ERYTHEMATOSUS (SLE), DISEASE ACTIVITY PANEL Lab Routine Polyarthralgia Expected: 08/20/2025 (Approximate), Expires: 08/20/2026[facility] HealthcareComment on above:Expected: 08/20/2025 (Approximate), Expires: 08/20/2026Start: 08-20-2025 End: 09-20-0255Oqaer [Mass/volume] in Serum or PlasmaUric acid Lab Routine Polyarthralgia Expected: 08/20/2025 (Approximate), Expires: 08/20/2026NONY HealthcareComment on above:Expected: 08/20/2025 (Approximate), Expires: 08/20/2026Start: 08-20-2025 End: 75-19-5179Dhozxoc encounter /17/2025 9:15 AM EDT Office Visit [facility] [address] [place] [place] [phone] Ryan Milton PA [address] [place] [phone] Acute right hip pain (Primary Dx); History of total right hip replacementNOYork General Hospital OrthopaedicsComment on above:Acute right hip pain (Primary Dx); History of total right hip replacementStart: 78-79-3873Usvvwmqvg vaccination Influenza Vaccine (Season Ended)[facility]Start: 05-05-2025 End: 77-64-2219Lubmwww encounter etferrgvv83/02/2025 10:40 AM EDT Office Visit WADE SANON [address] [place] [address] Uzma Joel NP [address] [place] [address] WADE OVALLEUEStart: 02-16-2025 End: 54-49-6573Kpdaqgk encounter rydzvowee47/15/2025 10:40 AM EDT Office Visit WADE SANON [address] [place] [phone] Uzma Joel, DAVIS [address] [place] WADE WILDERtart: 02-15-2025 End: 50-06-8903Zfeonbb encounter procedureWADE MELGOZAomment on above:Arrived Start: 37-88-4339Qcfkgjafc for malignant neoplasm of colonColonoscopyCleveland Clinicca Health SystemStart: 01-20-2025 End: 66-99-2728Tzudgkxf Cahbfhx8501/20/2025 2:00 PM EDT Clinical Support WADE SANON [address] [place] [address] aGUY SANON Start: 01-18-2025 End: 44-10-0536Stbwzvz encounter pqqeatboh49/17/2025 2:30 PM EDT Office Visit WADE TRUONG [address] [place] [address] Migel Dunlap, PhD [address] [place], [place] [phone] WADE DYKESYStart: 01-14-2025 End: 07-77-6466Pjgvpzubm (Vitamin B12) [Mass/volume] in Serum or PlasmaVitamin B12 Lab Routine Memory loss Expected: 01/14/2025 (Approximate), Expires: 01/14/2026[facility] SystemComment on above:Expected: 01/14/2025 (Approximate), Expires: 01/14/2026Start: 01-14-2025 End: 64-26-4986ITQ awake or drowsyEEG awake or drowsy Neurology Routine Memory loss Expected: 01/14/2025 (Approximate), Expires: 01/14/2026[facility] Healthcare Comment on above:Expected: 01/14/2025 (Approximate), Expires: 01/14/2026Start: 01-14-2025 End: 38-40-9065Jcdmdg [Mass/volume] in Serum or PlasmaFolate Lab Routine Memory loss Expected: 01/14/2025 (Approximate), Expires: 01/14/2026[facility] Healthcare Comment on above:Expected: 01/14/2025 (Approximate), Expires: 01/14/2026Start: 01-14-2025 End: 24-10-1847FV Brain WO contrastMR brain wo contrast Imaging Routine Memory loss Expected: 01/14/2025, Expires: 01/14/2026[facility] Work Phone: comment on above:Expected: 01/14/2025, Expires: 01/14/2026Start: 01-14-2025 End: 31-95-7628Focyogjzmkk [Units/volume] in Serum or PlasmaTSH Lab Routine Memory loss Expected: 01/14/2025 (Approximate), Expires: 01/14/2026NOM[facility] HealthcareComment on above:Expected: 01/14/2025 (Approximate), Expires: 01/14/2026Start: 01-14-2025 End: 89-44-8393Capqsim encounter qrytxqnxv92/13/2025 11:15 AM EDT Office Visit [facility]ON [address] [place] [address] Mc Parry DO [address] [place] [address] Rich SANONComment on above:ArrivedStart: 11-31-6335Vjtwn BMI ScreeningAdult BMI ScreeningProMercy Health – The Jewish Hospitalca [facility] SystemStart: 33-05-6180Tegksco ScreeningTobacco ScreeningProMercy Health – The Jewish Hospitalca [facility] SystemStart: 09-16-2024 End: 45-65-9848Sbptfiw encounter aabjxqlya33/13/2024 10:30 AM EST [facility] Visit [facility] [address] [place] [address] Maria L Bean, DANYA-SENIOR PORTFOLIO ANALYST [address] [place] [address] [facility] SurgeryStart: 09-08-2024 End: 78-53-3381Wymhemmk Non-[facility] ProcedureUnlisted Non-[facility] Procedure Procedures Routine Inclusion cyst Expected: 09/08/2024, Expires: 09/02/2025 [facility] Work Phone: Comment on above:Expected: 09/08/2024, Expires: 09/02/2025Start: 91-69-3894KZFUW-19 Vaccine ( season)COVID-19 Vaccine ( season)[facility]St[facility] SystemStart: 53-62-2970Tgnihwqgf vaccinationProSamaritan Hospital SystemStart: 02-05-2024 End: 51-87-5639Hisvzdl encounter jvlfbksuy20/03/2024 7:30 AM EDT Procedure visit [facility] [address] [place] [address] Rehana Reinoso DO [address] [id number] [facility] SurgeryStart: 45-07-1072Sgxpthqme for malignant neoplasm of colonColonoscopyProSamaritan Hospital SystemStart: 38-85-4024UTO, Provider: Lei Perez, Status: Pen, Time: 9:50 AM FUV, Provider: Lei Perez, Status: Pen, [facility]: 9:50 [facility] 600 [facility] Work Phone: Start: 95-59-9586MINJD-19 Vaccine ( season) COVID-19 Vaccine ( season)[facility] SystemStart: 07-05-2023 Influenza vaccinationInfluenza VaccineAdena Health System SystemStart: 07-05-2022 Influenza vaccinationINFLUENZA (Season Ended)[facility]: 07-04-2022 [facility] Work Phone: Start: 51-99-3709Ljuamz biopsyCT guided biopsy [facility] Hospitaltart: 89-20-4519Puowochbpcak Vaccine: 65+ Years (2 of 2 - PCV)Pneumococcal Vaccine: 65+ Years (2 of 2 - PCV)[facility] SystemStart: 02-15-2022 End: 60-99-2805DXY W Auto Differential panel - BloodCBC + DIFF Lab Routine Malignant neoplasm of upper-outer quadrant of left breast in female, estrogen receptor positive (HCC) Expected: 02/15/2022, Expires: 04/17/2022[facility] Work Phone: Comment on above:Expected: 02/15/2022, Expires: 04/17/2022tart: 02-15-2022 End: 65-36-1249Bwljmeicxelxt metabolic 2000 panel - Serum or PlasmaCOMP METABOLIC PANEL Lab Routine Malignant neoplasm of upper-outer quadrant of left breast in female, estrogen receptor positive (HCC) Expected: 02/15/2022, Expires: 04/17/2022[facility] Work Phone: Comment on above:Expected: 02/15/2022, Expires: 04/17/2022tart: 64-31-9211CBEHCHS DIRECTIVE DISCUSSIONADVANCE DIRECTIVE DISCUSSIONSelect [facility]iotart: 03-18-7392Ymcjjajkv vaccinationINFLUENZA (Season Ended)[facility]: 06-29-6340FVAAL-19 VACCINE (3 - Booster) COVID-19 VACCINE (3 - Booster)[facility]: 52-03-1044PQGNKJI DIRECTIVE DISCUSSIONADVANCE DIRECTIVE DISCUSSIONSelect [facility]iotart: 57-56-5712DJSR DENSITYBONE DENSITYSelect [facility]ty [facility]: 97-71-0707Ltmk Risk ScreeningFall Risk ScreeningDorothea Dix Hospitaltart: 49-82-5269UPZNTXTLR AGE 65 AND OVER WITH 5YR LOOKBACK (#1)PNEUMOVAX AGE 65 AND OVER WITH 5YR LOOKBACK (#1)[facility]: 92-50-7225ZIYWOOSD SCREENDIABETES SCREENSelect [facility]ty [facility]art: 53-71-2883Pcjlethrayelfa of varicella zoster vaccineZoster (Shingles) Vaccine (1 of 2)[facility] SystemStart: 91-69-5474Wodoobtkk for malignant neoplasm of colonSelect [facility]: 20-92-8340VLXTUVHI VACCINE (1 of 2)SHINGRIX VACCINE (1 of 2)[facility]: 70-24-3005UPVUIPBVV (FIT-DNA)COLOGUARD (FIT-DNA)[facility]: 88-53-8093RlwvyxwmnzlEPRNJBLKGBQXkchueenf Clinic Start: 48-53-7472PJOOPSTDXC CANCER SCREENINGCOLORECTAL CANCER SCREENINGSelect [facility]art: 93-18-0418XW COLONOGRAPHYCT COLONOGRAPHYSelect [facility]: 86-79-4024KYKUO OCCULT BLOODFECAL OCCULT BLOODSelect [facility]iotart: 2000 LIPID SCREENLIPID SCREENSelect [facility]: 06-81-6387OBRXMVJAPUBOU SIGMOIDOSCOPYSelect [facility]: 33-36-4480KtaeeqmomvpJRTYKAXTGIrhesauus ClinicStart: 96-34-5186Ilepinakh for malignant neoplasm of breastMaogramDELTA COMMUNITY MEDICAL [facility]ENTER HealthcareStart: 88-23-2899TGwZ,Tdap and Td Vaccines (1 - Tdap)DTaP,Tdap and Td Vaccines (1 - Tdap)[facility] Hospitaltart: 64-79-8547Synry microalbumin profileDTAP,TDAP,TD (1 - Tdap)[facility]: 73-67-4541Chcft BMI Follow Up PlanAdult BMI Follow Up PlanDorothea Dix Hospitaltart: 70-68-7765FJXJXDZGB C SCREENINGHEPATITIS C SCREENINGSelect [facility]: 64-00-9108SZJ SCREENING HIV SCREENINGSelect [facility]: 68-40-4983Jcwtq depression screening assessmentDEPRESSION SCREENINGSelect [facility]: 01-18-1956Medicare Annual Wellness VisitMedicare Annual Wellness VisitDorothea Dix Hospitaltart: 50-53-5964Hushmkbuk for malignant neoplasm of colonDELTA COMMUNITY MEDICAL [facility]ENTER Healthcare End: 05-17-5074BibnkazjqktTmkqglntmit GI Routine History of colon polyps 1 Occurrences starting 01/03/2024 until 01/02/2025[facility] Work Phone: Comment on above:1 Occurrences starting 01/03/2024 until 5Cryoglobulin [Presence] in SerumMercy Health [facility]tr Work Phone: Patient EducationKidnMercy Health Ctr Work Phone: XR Knee - left 1 or 2 ViewsXR knee 1 or 2 views left Imaging Routine Acute pain of left knee 12/02/2024 10:39 AM [facility] Work Phone: [facility] Immunizations Immunization DateImmunizationNotesCare NcuqnivxPfjqhqpj36-87-3719Xgvjizu Bivalent Booster VaccinationJr. Stepanic DO Work Phone: [facility] SystemOulrdpovcp74-82-8984UPHXR-63 mRNA-1273 (Moderna) MD Florinda Flowers Work Phone: [facility]10-18-2021influenza virus vaccine, split virus (incl. purified surface antigen)Florinda Flowers Other [employer] Other 787187-24-4750ougurpxnr virus vaccine, unspecified formulationMaria L Bean HEADER SETUP OPERATOR-[facility] Work Phone: [facility]10-18-2021Seasonal trivalent influenza vaccine, adjuvanted, preservative freeFlorinda Flowers Work Phone: [phone]-SewhnNew Ulm Medical Center 600 DO Work Phone: [phone]eu polysaccharide vaccine, 23 valentMarsaleem Flowers Work Phone: [facility]03-09-2021COVID-19 mRNA-1270 (Moderna)MD Florinda Flowers Work Phone: [facility]03-09-2021COVID-19 vaccine (UNSPECIFIED)Errol Corbin MD Work Phone: [facility] SystemTxribo57-64-0574BIBFR-59 mRNA-1273 (Moderna) MD Florinda Flowers Work Phone: [facility]02-08-2021COVID-19 vaccine (UNSPECIFIED)Errol Corbin MD Work Phone: [facility] SystemJhlkpx07-53-8943hlzvvvfhe virus vaccine, unspecified formulationFlorinda Flowers Work Phone: [phone]-XudwoNorthfield City Hospital 600 DO Work Phone: [phone]p, seasonal, injectableJr. Stepanic DO Work Phone: [facility] SystemYhxheywsii46-78-0742coiwxtrju virus vaccine, unspecified formulationMarcia E Flowers Work Phone: [phone]-LlsodNew Ulm Medical Center 600 DO Work Phone: [phone]z virus vaccine, unspecified formulationMarcia E Flowers Work Phone: [phone]-ZwjkxNew Ulm Medical Center 600 DO Work Phone: [phone] fgnjhrodk-J0M0-97, preservative-free, injectableMarcia E Flowers Work Phone: [phone]-PnvtqNew Ulm Medical Center 600 DO Work Phone: Payers DatePayer CategoryPayerPolicy [id number]-[id number] Care Other (unspecified) [facility] Member Subscriber Plan / Payer (Effective 2021-Present) Name: Uzma Ramirezelle Relation to Subscriber: Self Name: Uzma Ramirezelle Payer ID: [id number] (NAIC) Group ID: Not on file Type: Not on file Address: [facility] [address] [place] [id number]. Private Health Insurance1.2.840.514516.1.13.693.2.7.9.777371.357794.315 [id number] 1.2.840.745589.1.13.159.2.7.3.911826. Medicare1.2.840.004119.1.13.424.2.7.9.133908.102.40663-18-6832E[employer] Health [id number] 1.2.840.734221.1.13.159.2.7.3.590812.315 1960Medicare [id number]-lrfm-5969-271u-d8w2y7[id number] 2.0.1.978826.3.579.2.06331-30-3453Kidxide5573327 2.0.1.437760.3.579.2.33508-27-8111Hhwiesf6708496 2.0.1.653830.3.579.2.18737-13-5730Ienjbfc5744945 2.840.1.942492.3.579.2.49510-09-2607Lwbnsni4652239 2.840.1.766919.3.579.2.49557-85-9358Bnhkqxu8467971 2..1.905467.3.579.2.28753-35-1690Gwxapem5245103 2.840.1.228340.3.579.2.71170-90-9863Njtflpt2036991 2.840.1.247509.3.579.2.84910-19-4639Ersmiwo8827402 2.840.1.524848.3.579.[id number] 2.840.1.211038.3.579.2.809969-73-0865Uotkvua12496139 2.16840.1.801782.3.579.2.140755-48-2835Pvhbwuh66904817 2.16.840.1.300307.3.579.2.687181-97-4325Kvexagn19424556 2.16840.1.747633.3.579.2.969281-91-6486Exrfgve39978568 2.840.1.871188.3.579.2.966073-75-3373Uwuqeor8455113 2.840.1.304408.3.579.2.013877-44-0890Kcudaow2883613 2.840.1.420458.3.579.2.314685-29-5026Ljjtvnw2737536 2.840.1.034671.3.579.2.014253-49-2253Jzrnvtk1172945 2.840.1.493716.3.579.2.047698-66-5125Rlgjold4813329 2.840.1.526099.3.579.2.862164-66-5420Jgdqcxj4220171 2.840.1.951898.3.579.2.952597-41-8448Adupvkr0642121 2.840.1.363515.3.579.2.937889-89-7509Nzikrfo8677408 2.840.1.517158.3.579.2.1344Mgssnlr754064195601 35n1qfv0-n2z8-43u9-4xd8-owk4s2t2f7f0ZsbpugnTqhdbcu86181083 2.16840.1.419688.3.579.2.792Qrwuiny90390648 2.840.1.185163.3.579.2.531 Mbxxklq25245610 2..840.1.495616.3.579.2.531 Social History DateTypeDetailFacilityStart: 01-27-2015 End: 18-31-8494Qtfzeiy smoking status NHISFormer smokerAcmc Healthcare SystemHistory of tobacco useCigarette SmokerSelect [facility]ty [facility]iotart: 01-27-2015 End: 24-83-3858Qofvyslaml smoked current (pack per day) - ReportedSelect Medical Specialty Hospital - Southeast Ohiotart: 01-27-2015 End: 95-80-4832Efsobvq use and exposureNever usedSelect Medical Specialty Hospital - [facility] Ohiotart: 01-27-2015 End: 32-62-4779Pwxqbhj intakeCurrent drinker of alcohol (finding)[facility]: 60-96-3733Tqu Assigned At BirthNot on fileSelect Medical Specialty Hospital - Southeast Ohiotart: 38-02-6310Gex Assigned At [facility] Centertart: 09-02-2024 End: 13-79-1013Jew Assigned At [facility] [employer] Other Start: 07-04-2022 End: 90-62-7322Dnqxqxt smoking status NHISNever smoked tobacco (finding) [facility] HospitalHistory of tobacco useCurrent smokerProSamaritan Hospital SystemStart: 35-23-2779PwezyferrQyosxlsYuxDapgpq Health SystemStart: 19-37-0312Pbhdwvr CommentTried cigarettes when 17 years oldAdena Health System SystemStart: 97-20-1497Izvodcq CommentrarelyPPremier Health SystemStart: 80-01-6668UwuRondsw (finding)[facility] SystemStart: 12-25-2023 End: 57-20-6312Veulbqxvu beverage intakeEx-drinker (finding)[facility] Medical Equipment Procedure CodeEquipment CodeEquipment Original TextEquipment IdentifierDates [facility] 40gm Rpl 995449+[id number] - Sn/A - [id number] ()[id number](10)[id number](21)N/A, 571850_imp FDAStart: 78-90-6649Fmuomo Bn Bio 40gm Rpl 738090+029735+594648 - Sn/A - [id number] ()[id number](17)[id number](10)[id number](21)N/A, 571852_imp FDAStart: 96-08-3123Sdahdi Artc 3-4 E-F 10mm Kn Fx Brng Prlng Nxgn Lpsflx Strl Lpsflx Rpl 072006 + 67116 - Sn/A - [id number] ()[id number](17)[id number](10)[id number](21)N/A, 571841_imp FDAStart: 06-25-2023 Component Fem E Kn Rt Lpsflx Gndr Melissa? Nxgn Cocr Rpl [id number] - Sn/A - [id number]()[id number](17)[id number](10)[id number]()N/A, 571845_imp FDAStart: 73-23-3326Vmnvvtckk Ptlr 32mm Persona Alply Kn Strl Lf - Sn/A - [id number] 571849_impStart: 61-80-5221Xaiho Tib 93j34cf Nxgn Kn Cmnt Mdlr Stm Prect 4 Tiv Pmma Rpl 720009 + 636193 - Sn/A - [id number] ()[id number](17)572955(10)[id number](21)N/A, 571843_imp FDAStart: 06-25-2023 Goals DatePatient GoalDesired Activity/StatePersonal health goalComment on above: Evaluation of progress towards goal: Home with family support and [facility] services Clinical Notes 02-06-2022 to 08-25-2025 Note Date & XmjkDmqvBjseeupv43-27-7463 Telephone encounter Note* Telephone Encounter - LUIS [...] agreeable to see him given past experience [facility] SystemVpjmjkohku17-07-9041 Miscellaneous Notes* Telephone Encounter - LUIS Franklin [...] him given past experience documented in this encounterSaint Luke's Health SystemKnbeaubzna71-65-8928 History of Present illness Narrative* LUIS Franklin [...] requiring urgent evaluation. Visit was preformed using [employer]-ship pilot speech recognition. documented in this encounterSaint Luke's Health SystemFrfxkmysxz56-04-0595 History of Present illness Narrative* Uzma Marycruz, [...] she believes. . She works at the [employer] at [employer] and will be starting this in March [...] to clinic: 2-3 months documented in this [facility]04-14-2025 History of Present illness Narrative* Migel Dunlap, PhD - 02/15/2025 2:30 PM EDT Images from the original note were not included. Neuropsychology Migel Dunlap, PhD NEUROPSYCHOLOGICAL EVALUATION FEEDBACK Findings are recommendations discussed. Questions addressed. Thank you for allowing me to participate in the care of this individual. Please contact me with [employer] at [phone]. documented in this [facility]04-01-2025 History of Present illness Narrative* Migel Dunlap, [...] No history of alcohol/substance abuse or smoking. [place] language Armenian. Completed a bachelor's degree. 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 [...] design >16th %ile. 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 Active listening, such as repeating and [...] of this individual. Please contact me with [employer] at [phone]. documented in this encounterSaint Luke's Health SystemWpvvswwkbz43-54-6033 History of Present illness Narrative* Mc Parry, [...] he collapsed. He refused to goto the [facility]. He wanted to take a nap. About [...] to clinic: 2-3 months documented in this encounterSaint Luke's Health SystemVjyprtrgig13-70-6322 History of Present illness Narrative* Jr. Dell [...] 02/21/22, 03/07/22 NO CORTISONE INJ FINISHED PT @[facility] NO PAIN MANAGEMENT DOING WELL. TAKING [...] Tobacco Use: Medium Risk (09/16/2024) Received from [employer] Patient History Smoking Tobacco Use: Former Smokeless [...] for requiring urgent evaluation. documented in this encounterSaint Luke's Health SystemBgsnqgtlcd99-55-7623 History of Present illness Narrative* WALDEMAR Malloy [...] as needed. Inclusion cyst [L72.0] WALDEMAR MALLOY [facility] [place] This note was created with the assistance of a speech recognition program. While intending to generate a timely document that accurately reflects the content of the visit, no guarantee can be provided that every grammatical or spelling mistake has been or will be identified or corrected. Thank you for your understanding. WALDEMAR Malloy 09/16/24 1117 documented in this encounterOhioHealth Mansfield Hospital10-30-2024 History of Present illness Narrative* Rehana Reinoso, DO - 09/02/2024 9:00 AM EDT Images from the original note were not included. [facility] [address] [place] [address] CONSULT NOTE CHIEF COMPLAINT Chief Complaint Patient [...] Medical History: Diagnosis Date Arthritis Breast cancer ([facility] 2002 Hypertension Obesity Osteopenia Urinary frequency Visual impairment SURGICAL HISTORY Past Surgical History: Procedure Laterality Date BACK SURGERY x2 BREAST RECONSTRUCTION Left COLONOSCOPY 04/2018 MASTECTOMY Left 2002 at [facility] REPLACEMENT TOTAL JOINT KNEE Right 06/25/2023 Performed by Dell Adrian Jr., DO at [facility] REPLACEMENT TOTAL KNEE Left 01/2022 TOTAL [...] MAC in the prone position at the [facility]. Risks benefits alternatives to procedure may [...] patient/family/caregiver Referring and communicating with other health pulmonary care nurse Inclusion cyst [L72.0] Rehana Reinoso DO This note was created with the assistance of a speech recognition program. While intending to generate a timely document that accurately reflects the content of the visit, no guarantee can be provided that every grammatical or spelling mistake has been or will be identified or corrected. Thank you for your understanding. documented in this encounterCleveland ClinicOncoMed Pharmaceuticals Htyaly80-28-9008 Miscellaneous Notes* Telephone Encounter - Rita Baker [...] year. Thanks, Dr. Lacey documented in this encounterOhioHealth Mansfield Hospital04-12-2024 Telephone encounter Note* Telephone Encounter - [...] schedule for 1 year. Thanks, Dr. Lacey [facility]03-01-2024 History of Present illness Narrative* Maria L Bean, HEADER SETUP OPERATOR-SENIOR PORTFOLIO ANALYST - 01/03/2024 11:00 AM EST Images from [...] Medical History: Diagnosis Date Arthritis Breast cancer ([facility]) 2002 Hypertension Obesity Osteopenia Urinary frequency Visual impairment Past Surgical History: Procedure Laterality Date BACK SURGERY x2 BREAST RECONSTRUCTION Left COLONOSCOPY 04/2018 MASTECTOMY Left 2002 at [facility] REPLACEMENT TOTAL JOINT KNEE Right 06/25/2023 Performed by Dell Adrian Jr., DO at [facility] REPLACEMENT TOTAL KNEE Left 01/2022 TOTAL [...] patient/family/caregiver Referring and communicating with other health pulmonary care nurse History of colon polyps [Z86.010] WALDEMAR MALLOY [facility] [place] This note was created with the assistance of a speech recognition program. While intending to generate a timely document that accurately reflects the content of the visit, no guarantee can be provided that every grammatical or spelling mistake has been or will be identified or corrected. Thank you for your understanding. WALDEMAR Malloy 01/03/24 1155 documented in this encounterOhioHealth Mansfield Hospital12-26-2023 Evaluation note* Encounter Date Diagnosis Assessment Notes Treatment Notes Treatment Clinical Notes Oct, Primary insomnia (ICD-10 - F51.0 1) Oct,Essential (primary) hypertension (ICD-10 - I10) [employer] Other 10-02-2023 Evaluation note* Encounter Date Diagnosis Assessment Notes Treatment Notes Treatment Clinical Notes Aug, Primary insomnia (ICD-10 - F51.0 1) Aug,rimary hypertension (ICD-10 - I10) [employer] Other 08-15-2023 Evaluation note* Encounter Date Diagnosis Assessment Notes Treatment Notes Treatment Clinical Notes Jun, Essential (primary) hypertension (ICD-10 - I10) Chronic problem - stable; refilled meds. Jun,reoperative examination (ICD-10 - Z01.818)Uzma is in good health. I do not have labs from [facility], but barring any abnormalities she is low risk for upcoming knee replacement. Jun,hronic kidney disease, stage 3a (ICD-10 - N18.31)Established with Nephrology - continue to monitor and keep bp controlled. [employer] Other 02-20-2023 Evaluation note* Encounter Date Diagnosis [...] - F51.01)chronic problem. denies issues with medication. [employer] [facility] Other 02-02-2023 Evaluation note* Encounter Date Diagnosis Assessment Notes Treatment Notes Treatment Clinical Notes Dec, Primary hypertension (ICD-10 - I 10) [employer] Other 11-27-2022 Evaluation note* Encounter Date Diagnosis [...] no improvement in 2 to 3 days [employer] Other 10-11-2022 Evaluation note* Encounter Date Diagnosis [...] negative. Kidney biopsy did not show glomerulonephritis [employer] [facility] Other 08-09-2022 Evaluation note* Encounter Date Diagnosis [...] kidney biopsy to rule out lupus nephritis [employer] Other 04-14-2022 NoteHNO ID: [id number] Author: Errol Corbin MD Service: ? Author [...] Normal RADIOLOGY/OTHER STUDIES: 06/28/2021 Bilateral screening mammogram ([facility]) No significant suspicious findings in the right breast or left breast. Routine mammogram in 12 months recommended. 02/28/2021 Bone density DEXA ([facility]) Osteoporosis ASSESSMENT/PLAN: 1. Malignant neoplasm of left breast in female, estrogen receptor positive (HCC) - ICD9: 174.4, V86.0, ICD10: C50.412, Z17.0 (primary diagnosis) Stage IIB (pT2, N1mic, M0) ER/SC positive HER-2 negative left-sided breast cancer diagnosed November 2002. Status post left modified radical right mastectomy and lymph node dissection 12/01/2002 (Dr. Dinesh Gomez). Postop the patient received adjuva (more content not included)...[facility]04-05-2022 Miscellaneous Notes* Telephone Encounter - Corinne Bentley MA - 02/06/2022 11:[address]/sign lab orders for 02/15/22. Thanks. Corinne Reyes MA documented [facility] encounterAccess [facility] note* Diagnosis Malignant neoplasm of upper-outer quadrant of left breast in female, estrogen receptor positive (HCC)- Primary documented in [facility] encounter [facility] noteNo assessment information availableMercy Health Kings [facility] Ctr Work Phone: Evaluation noteNo InformationNort [employer] Other Evaluation note* Diagnosis Onset Date Resolution Status Scalp mass acute [facility] Work Phone: Evaluation note* Diagnosis S/P TKR (total knee replacement), right- Primary Acute pain of left knee History of left knee replacement documented in this encounter [facility] HealthcareEvaluation note* Diagnosis History of colon polyps- Primary documented in [facility] SystemEvaluation [facility]* Diagnosis History of colon polyps- Primary documented in this encounter [facility] HospitalEvaluation note* Diagnosis History of colon polyps documented in [facility] encounter [facility] SystemEvaluation note* Diagnosis Inclusion cyst- Primary Sebaceous cyst documented in this encounter [facility] SystemEvaluation note* Diagnosis Inclusion cyst Sebaceous cyst documented in this encounter [facility] SystemEvaluation note* Diagnosis Inclusion cyst- Primary Sebaceous cyst documented in [facility] encounter [facility] SystemEvaluation note* Diagnosis Memory loss- Primary Primary insomnia Persistent disorder of initiating or maintaining sleep 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 Depression, unspecified depression type (CMS/HCC) documented in this encounter [facility] HealthcareEvaluation note* Diagnosis Primary progressive [...] PAINMedical HistoryLEFT SIDED BREAST SURGERY Surgical HistoryHIP [id number] HistoryRIGHT KNEE ARTHROSCOPY Surgical HistoryMASTECTOMY LEFTSurgical HistoryHYSTERECTOMYSurgical History WISDOM TEETHSurgical HistoryLUMBAR FUSION S5Hlppgwcl HistoryLEFT KNEE REPLACEMENT3/2Surgical HistoryHIP [id number] HistorySEE ABOVE [employer] Other InstructionsNot on filedocumented in this encounter [facility] SystemInstructionsNot on filedocumented in this encounter [facility] SystemInstructionsNot on filedocumented in this encounter [facility] SystemInstructionsNot on filedocumented in this encounter [facility] SystemReason for referral (narrative)No reason for referral information availableJ.W. Ruby [facility] Work Phone: Summary Purpose Family [...] managed by rheumatology * Lei Perez MD, [facility] Additional Source Comments Source Comments (unrecognize d section and content) In the event this informatio n is protected by the Federal Confidentiality of Alcohol and Drug Abuse Patient Records regulations: The Federal rules restrict any use of the information to criminally investigate or prosecute any alcohol or drug abuse patient.[facility] Healthcare SystemIn the event this information is protected by the Federal Confidentiality of Alcohol and Drug Abuse Patient Records regulations: The Federal rules restrict any use of the information to criminally investigate or prosecute any alcohol or drug abuse patient.[facility] SystemIn the event this information is protected by the Federal Confidentiality of Alcohol and Drug Abuse Patient Records regulations: The Federal rules restrict any use of the information to criminally investigate or prosecute any alcohol or drug abuse patient.[facility] INFORMATION SOURCE (unrecogn ized section and content) DATE CREATED AUTHOR 12/28/2021 [facility] Boring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 Helper DATE CREATED AUTHOR AUTHOR'S ORGANIZ ATION 02/16/2022 [facility] DATE CREATED AUTHOR AUTHOR'S ORGANIZ ATION 08/04/2022 [facility] DATE CREATED AUTHOR AUTHOR'S ORGANIZ ATION 08/04/2022 [facility] DATE CREATED AUTHOR AUTHOR'S ORGANIZ ATION 02/24/2023 [facility] DATE CREATED AUTHOR AUTHOR'S ORGANIZ ATION 09/11/2024 [facility] DATE CREATED AUTHOR AUTHOR'S ORGANIZ ATION 09/18/2024 [facility] DATE CREATED AUTHOR AUTHOR'S ORGANIZ ATION 08/25/2025 [facility] EPIC Reason for Visit (unrecogniz ed section and content) ReasonCommentsLab OrdersReasonCommentsPainReasonCommentsColon Cancer Screening1 YEAR RECALL, COLONOSCOPY by DR RizoCommentsCystLump behind Left ear, referred by Dr. BartlettCommentsPost-opPost op excision of inclusion cyst on left posterior scalp performed 09/08/24 at [facility]HReasonCommentsMemory LossSpecialty Diagnoses / ProceduresReferred By ContactReferred To ContactNeurology Diagnoses Other amnesia Procedures [place] OFFICE/OUTPATIENT NEW LOW MDM 30 MINUTES Florinda Flowers MD [address] [place] [address] Phone: tel: fax: Dennis Henriquez, DO [address] [place] [address] Phone: tel: fax: Referral IDStatusReasonStart DateExpiration DateVisits RequestedVisits [id number] Consult and Treat /[id number] Loss Care Teams (unrecognized sec tion and content) Team MemberRelationshipSpecialtyStart DateEnd Date Florinda Flowers MD [address] [place] [address] PCP - GeneralFamily Practice01/26/14 Team Status: Inactive Member Role Status Dates Florinda Flowers MD Primary Care Provider Active Taylor Barboza ProviderActive Team Status: Inactive Member Role Status Dates Florinda Flowers MD Primary Care Provider Active LUIS [facility] ProviderActive Team Status: Active Member Role [...] 2024Team MemberRelationshipSpecialtyStart DateEnd Date Florinda Flowers MD [address] [place], [place] [address] PCP - General04/30/18Team MemberRelationshipSpecialtyStart DateEnd Date Florinda Flowers MD [address] [facility] [address] PCP - GeneralFamily Medicine05/21/23Team MemberRelationshipSpecialtyStart DateEnd Date Florinda Flowers MD [address] [place] [address] PCP - GeneralFamily Medicine05/21/23Team MemberRelationshipSpecialtyStart DateEnd Date Florinda Flowers MD [address] [place] [address] PCP - General04/30/18Team MemberRelationshipSpecialtyStart DateEnd Date Florinda Flowers MD [address] [place] [address] PCP - General04/30/18Team MemberRelationshipSpecialtyStart DateEnd Date Florinda Flowers MD [address] [place] [address] PCP - General04/30/18Team MemberRelationshipSpecialtyStart DateEnd Date Florinda Flowers MD [address] [place] [address] PCP - General04/30/18Team MemberRelationshipSpecialtyStart DateEnd Date Florinda Flowers MD [address] [place] [address] PCP - General6/27/18Team MemberRelationshipSpecialtyStart DateEnd Date Florinda Flowers MD [address] [place] [address] PCP - General04/30/18Team MemberRelationshipSpecialtyStart DateEnd Date Florinda Flowers MD [address] [place] [address] PCP - Generalmily Medicine05/21/23 Mc Parry DO [address] [place] [address] Referring PhysicianNeurology01/14/25Team MemberRelationshipSpecialtyStart DateEnd Date Florinda Flowers MD [address] [place] [address] [facility] - [facility] [place]05/21/23 Mc Parry DO [address] [place] [address] Referring PhysicianNeurology01/14/25Team MemberRelationshipSpecialtyStart DateEnd Date Florinda Flowers MD [address] [place] [address] PCP - Generalmily [facility]05/21/23 Mc Parry DO [address] [place] [address] Referring PhysicianNeurology01/14/25Team MemberRelationshipSpecialtyStart DateEnd Date Florinda Flowers MD [address] [facility] [place] [address] PCP - GeneralFamily Medicine05/21/23 Mc Parry DO [address] [place] [address] Referring PhysicianNeurology01/14/25Team MemberRelationshipSpecialtyStart DateEnd Date Florinda Flowers MD [address] [facility] [place] [address] PCP - Generalmi Medicine05/21/23 Mc Parry DO [address] [place] [address] Referring PhysicianNeurology01/14/25Team MemberRelationshipSpecialtyStart DateEnd Date Florinda Flowers MD [address] [facility] [place] [address] PCP - [facility] [place]05/21/23 Mc Parry DO [address] [place] [address] Referring PhysicianNeurology01/14/25 Team Status: Inactive Member Role Status Dates Florinda Flowers MD Primary Care Provider Active Start: May 05, 2025 End: May 05ngSilvestre Mckeon ProviderActiveStart: May 05, 2025 End: May 05, 2025Team MemberRelationshipSpecialtyStart DateEnd Date Florinda Flowers MD [address] [facility] [place] [address] PCP - GeneralFami Medicine05/21/23 Mc Parry DO [address] [place] [address] Referring PhysicianNeurology01/14/25Team MemberRelationshipSpecialtyStart DateEnd Date Florinda Flwoers MD [address] [facility] [place] [address] PCP - [facility]05/21/23 Mc Parry DO [address] [place] [address] Referring PhysicianNeurology01/14/25Team MemberRelationshipSpecialtyStart DateEnd Date Florinda Flowers MD [address] [facility] [place] [address] PCP - [facility]05/21/23 Mc Parry DO [address] [place] [address] Referring PhysicianNeurology01/14/25 Team Status: Active Member Role/Relationship [...] Date Florinda Flowers MD [address] [facility] [place] [address] PCP - GeneralFamily Medicine05/21/23 BrindaMc [address] [place] [address] Referring PhysicianNeurology01/14/25 Goals (unrecognized section and content) [...] BE BASED ON THE PRIMARY CLINICAL RECORDS. [facility]. provides no warranty or guarantee of the accuracy or completeness of information in this document.
--- OUTSIDE RECORDS SUMMARY | 2025-08-29 09:36 | XMS_ITS | Encounter Summary ---
Author Organization [facility] Address [address] [place] [address] Care Team Providers Care Official Court Reporter Name Role Phone Grace Dyer MD Primary Care Provider [phone] Britni Parry DO Unavailable [phone] Encounter Details DateTypeDepartmentCare Team (Latest Contact Info)Kkrmntfuilo37/17/2025Travel Social History Tobacco UseTypesPacks/DayYears UsedDateSmoking Tobacco: NeverSmokeless Tobacco: NeverAlcohol UseStandard Drinks/WeekCommentsNot Currently0 (1 standard drink = 0.6 oz pure alcohol)CommentsUnknownSex and Gender InformationValueDate RecordedSex Assigned at BirthNot on fileLegal WofAhbxxw64/15/2023 8:13 PM EDT Gender IdentityNot on fileSexual OrientationNot on filedocumented as of this encounter Plan of Treatment DateTypeDepartmentCare Team (Latest Contact Info)Oobwmxwkyop71/31/2025 10:45 AM EDTOffice Visit [facility] [address] [place] [address] Balta Milton PA [address] [place] [address] documented as of this encounter Visit Diagnoses Not on filedocumented in this encounter Care Teams Team MemberRelationshipSpecialtyStart DateEnd Date Grace Dyer MD [address] [facility] [address] PCP - GeneralFamily Medicine05/21/23 Britni Parry DO [address] [place] [address] Referring PhysicianNeurology01/14/25documented as of this encounter
--- OUTSIDE RECORDS SUMMARY | 2025-08-29 09:36 | XMS_ITS | Clinical Summary ---
Author Organization [facility] Address [address] [place] [address] Phone Care Team Providers Care Director Of Rehabilitation Name Role Phone Grace Dyer MD Primary Care Provider [phone] Allergies Active AllergyReactionsCriticalityNoted DateCommentsOxycodone-Acetaminophen Sytiqxv6706/26/20232446OaseknwdbceZmhuvwr78/23/7197DhduzgGsflhcs16/23/2023Terbinafine Nxsulwu8806/26/2023 Medications MedicationSigDispense QuantityRefillsLast FilledStart DateEnd DateStatus alendronate [...] (10 mg) by mouth once daily. OR SYPIDYGG59/31/2022ctive rosuvastatin (Crestor) 40 mg tablet Take 1 tablet (40 mg) by mouth once daily.05/31/2022ctive zolpidem (Ambien) 10 mg tablet Take 1 tablet (10 mg) by mouth as needed at bedtime.05/31/2022ctive Active Problems ProblemNoted DateDiagnosed DateEssential fqajwipzqews14/23/2023Hyperlipidemia, dvbtmkwoadr75/23/2023Sinus oqwffoapszn60/23/2417Eciyxtozgf88/23/2023 Immunizations ImmunizationAdministration DatesNext DueInfluenza, Rxrmxlsudpo76/01/2019, 08/04/2018,08/04/2017,09/10/2009Influenza, trivalent, lwkxfwsbup19/18/2021 Moderna COVID-19 vaccine, bivalent, blue cap/robertson label *Check age/dose* 10/17/2022Novel dhqopldxk-D4G8-20, preservative-free09/10/2009Pneumococcal polysaccharide vaccine, 23-valent, age 2 years and older (PNEUMOVAX 23) 06/12/2021 Family History Medical HistoryRelationNameCommentsHypertensionBrotherHypertensionFather HypertensionSisterMYCARDIAL INFARCTIONSisterACUTEOtherSisterH/O HEART ARTERY STENTRelationNameStatusCommentsBrotherFatherSister Social History Tobacco UseTypesPacks/DayYears UsedDateSmoking Tobacco: Never Assessed Tobacco Cessation:Counseling Given: Not Answered CommentsUnknownSex and Gender InformationValueDate RecordedSex Assigned at BirthNot on fileLegal AowReiajq67/26/2022 8:46 PM ESTGender IdentityNot on fileSexual OrientationNot on file Last Filed Vital Signs Vital SignReadingTime TakenCommentsBlood Xhebhtwh134/7809 1:49 PM EDT Vyonf9342 1:49 PM EDTTemperature--Respiratory Rate--Oxygen Saturation-- Inhaled Oxygen Concentration--Weight--Wrxhkg412.6 cm (5' 6 )07/20/2022 1:49 PM EDTBody Mass Index-- Plan of Treatment Health MaintenanceDue DateLast DoneCommentsCT Fmuolcvgrtdl97/18/1956Colonoscopy 1955olorectal Cancer Vhchltydq32/18/1956FIT-DNA (Cologuard)1955FIT 1955Lipid Panel1955 3262Unsfsxzbifhjm46/18/1956Hepatitis C Screening 1973DTaP/Tdap/Td Vaccines (1 - Tdap)1977Zoster [...] Ramirez TypeRelation to PatientDate of BirthPhone Billing AddressPersonal/WyhjapXaxu87/18/1956 [facility] [place] [address] Care Teams Team MemberRelationshipSpecialtyStart DateEnd Date Grace Dyer MD [address] [place], [place] [phone] [facility]11/04/20
--- OUTSIDE RECORDS SUMMARY | 2025-08-29 09:36 | XMS_ITS | Encounter Summary ---
Author Organization [facility] Address [address] [place] [address] Care Team Providers Care Round Boner Name Role Phone Grace Dyer MD Primary Care Provider [phone] Britni Parry DO Unavailable [phone] Encounter Details DateTypeDepartmentCare Team (Latest Contact Info)Zspavboovcz72/17/2025linisync Result Encounter [facility] External Department Unsolicited Balta Milton PA [address] [place] [address] Social History Tobacco UseTypesPacks/DayYears UsedDateSmoking Tobacco: NeverSmokeless Tobacco: NeverAlcohol UseStandard Drinks/WeekCommentsNot Currently0 (1 standard drink = 0.6 oz pure alcohol)CommentsUnknownSex and Gender InformationValueDate RecordedSex Assigned at BirthNot on fileLegal QtwNbgvbs79/15/2023 8:13 PM EDT Gender IdentityNot on fileSexual OrientationNot on filedocumented as of this encounter Plan of Treatment DateTypeDepartmentCare Team (Latest Contact Info)Wdmoszisoni14/31/2025 10:45 AM EDTOffice Visit [facility] [address] [place] [address] Balta Milton PA [address] [place] [address] documented as of this encounter Procedures Procedure NamePriorityDate/TimeAssociated DiagnosisCommentsANTINUCLEAR ANTIBODIES, EHXPflrril60/17/2025 12:19 PM EDT LYME DISEASE SEROLOGY W/SJMSBSFmdishj41/17/2025 12:19 PM EDT [facility] RHEUMATOID TLSLHHQcmbccz10/17/2025 12:19 PM EDT ALL URIC DWQSSkabeay21/17/2025 12:19 PM EDT ALL SED JXAEHuypobs14/17/2025 12:19 PM EDT ALL MISCELLANEOUS JWFQOzpnepg51/17/2025 12:19 PM EDT ALL MISCELLANEOUS PVLZXjsekcg44/17/2025 12:19 PM EDT ALL CBC WITH AUTO FVCTFqtydaz53/17/2025 12:19 PM EDT ALL C REACTIVE FTWZWHDSleyaqc29/17/2025 12:19 PM EDT documented in this encounter [...] ? Myositis Overlap Syndrome, Systemic Lupus ? Lfduvfaibakyn-Jrwlouqcdoc-Olvtglbxgw ? Myositis Overlap Syndrome, Systemic ? Autoimmune [...] Syndrome ?? Performed at: ??CB - [facility] [address], [place], [place] ??[id number] Alpaca Farmer: Cody Williamson PhD, Phone: ??[phone] Specimen (Source)Anatomical Location / LateralityCollection Method / Volume Collection TimeReceived Time08/20/2025 12:19 PM EDT1 12:41 PM EDT Narrative CLIN[facility] - 08/24/2025 6:09 PM EDT Authorizing ProviderResult TypeResult StatusBalta Milton PALAB BLOOD ORDERABLESFinal ResultPerforming OrganizationAddRiddle Hospitalty/State/ZIP CodePhone Number [facility] * ALL MISCELLANEOUS TEST (08/20/2025 12:19 PM EDT)ComponentValueRef RangeTest MethodAnalysis TimePerformed AtPathologist SignatureMISCELLANEOUS TESTCOMMENT. TBHComment: Test Ordered: [id number] Ceron Antibodies Ceron Antibodies <0.2 AI CB ?? Reference Range: 0.0-0.9 Performed at: ?? - [facility] ??[id number] [place]aca Farmer: Cody Williamson PhD, Phone: ??[phone] Specimen (Source)Anatomical Location / LateralityCollection Method / Volume Collection TimeReceived Time08/20/2025 12:19 PM EDT1 12:41 PM EDT Narrative CLINISYNC - 08/23/2025 4:09 PM EDT [id number] Ceron Antibodies Authorizing ProviderResult TypeResult StatusBalta Milton PACLINISYNCFinal ResultPerforming OrganizationAddressty/[facility]/RUST CodePhone Number [facility] * ALL MISCELLANEOUS TEST (08/20/2025 12:19 PM EDT)ComponentValueRef RangeTest MethodAnalysis TimePerformed AtPathologist SignatureMISCELLANEOUS TESTCOMMENT. TBHComment: Test Ordered: [id number] MAGAZINE EDITOR Antibodies MAGAZINE EDITOR Antibodies <0.2 AI CB ?? Reference Range: 0.0-0.9 Performed at: ??[facility] ??[id number] Alpaca Farmer: Cody Williamson PhD, Phone: ??[phone] Specimen (Source)Anatomical Location / LateralityCollection Method / Volume Collection TimeReceived Time08/20/2025 12:19 PM EDT1 12:41 PM EDT Narrative [facility]IN[facility] - 08/23/2025 4:09 PM EDT [id number] MAGAZINE EDITOR Antibodies Authorizing ProviderResult TypeResult StatusMattmima Milton PACLINISYNCFinal ResultPerforming OrganizationAddressCity/State/ZIP CodePhone Number CLINIS[facility] * LYME DISEASE SEROLOGY W/REFLEX (08/20/2025 12:19 [...] to 14 days is recommended. Performed at: ?? - [facility] ??[id number] Al[place]aca Farmer: Cody Williamson PhD, Phone: ??[phone] Specimen (Source)Anatomical Location / LateralityCollection Method / Volume
--- OUTSIDE RECORDS SUMMARY | 2025-08-29 09:36 | XMS_ITS | Encounter Summary ---
Author Organization [facility] Address [address] [place] [address] Care Team Providers Care Data Typist Name Role Phone Grace Dyer MD Primary Care Provider [phone] Britni Parry DO Unavailable [phone] Encounter Details DateTypeDepartmentCare Team (Latest Contact Info)Nxcmvxlaswy21/21/2025Results Follow-Up [facility] [address] [place] [address] Balta Milton PA [address] [place] [address] ALL CBC WITH AUTO DIFF, ALL SED RATE, ALL URIC ACID, Additional followed-up results: 6 Social History Tobacco UseTypesPacks/DayYears UsedDateSmoking Tobacco: NeverSmokeless Tobacco: NeverAlcohol UseStandard Drinks/WeekCommentsNot Currently0 (1 standard drink = 0.6 oz pure alcohol)CommentsUnknownSex and Gender InformationValueDate RecordedSex Assigned at BirthNot on fileLegal TplDrxfhs74/15/2023 8:13 PM EDT Gender IdentityNot on fileSexual OrientationNot on filedocumented as of this encounter Plan of Treatment DateTypeDepartmentCare Team (Latest Contact Info)Lyksuwjzgrg02/31/2025 10:45 AM EDTOffice Visit [facility] [address] [address] Balta Milton PA [address] [place] [address] documented as of this encounter Visit Diagnoses Not on filedocumented in this encounter Care Teams Team MemberRelationshipSpecialtyStart DateEnd Date Grace Dyer MD [address] [place] [address] PCP - GeneralFamily Medicine05/21/23 Britni Parry DO [address] [place] [address] Referring PhysicianNeurology01/14/25documented as of this encounter
--- OUTSIDE RECORDS SUMMARY | 2025-08-29 09:36 | XMS_ITS | Encounter Summary ---
Author Organization [facility] Address [address] [place] [address] Care Team Providers Care Pararescue Craftsman Name Role Phone Grace Dyer MD Primary Care Provider [phone] Britni Parry DO Unavailable [phone] Reason for Referral * Consultation (Routine) - AuthorizedSpecialtyDiagnoses / ProceduresReferred By ContactReferred To ContactRheumatology Diagnoses Polyarthralgia Procedures [place] OFFICE/OUTPATIENT [facility] MDM 60 MINUTES Balta Milton PA [address] [place] [address] Phone: tel: fax: Balta Garcia MD [address] [facility] [address] [place] [address] Phone: tel: fax: Referral IDStatusReasonStart DateExpiration DateVisits RequestedVisits [id number] Consult and Treat / Scheduling Instructions Please call pt to schedule. Former pt, but has not followed up in years. Most recent labs at [facility] [place] [facility] Encounter Details DateTypeDepartmentCare Team (Latest Contact Info)Lnlefmosanm25/22/2025Telephone [facility] [address] [place] [address] Balta Milton PA [address] [place] [address] Social History Tobacco UseTypesPacks/DayYears UsedDateSmoking Tobacco: NeverSmokeless Tobacco: NeverAlcohol UseStandard Drinks/WeekCommentsNot Currently0 (1 standard drink = 0.6 oz pure alcohol)CommentsUnknownSex and Gender InformationValueDate RecordedSex Assigned at BirthNot on fileLegal BtyGwcgnc67/15/2023 8:13 PM EDT Gender IdentityNot on fileSexual [...] Plan of Treatment DateTypeDepartmentCare Team (Latest Contact Info)Vwowrvrohwr72/31/2025 10:45 AM EDTOffice Visit [facility] [address] [place] [address] Balta Milton PA [address] [place] [address] NameTypePriorityAssociated DiagnosesOrder ScheduleAmbulatory referral to RheumatologyOutpatient ReferralRoutine Polyarthralgia Expected: 08/26/2025 (Approximate), Expires: 02/24/2026documented as of this encounter Visit Diagnoses Diagnosis Polyarthralgia- Primary Pain in joint, multiple sites documented in this encounter Care Teams Team MemberRelationshipSpecialtyStart DateEnd Date Grace Dyer MD [address] [place] [address] PCP - GeneralFamily Medicine05/21/23 Britni Parry DO [address] [facility] [place] [address] Referring PhysicianNeurology01/14/25documented as of this encounter
--- OUTSIDE RECORDS SUMMARY | 2025-08-29 09:37 | XMS_ITS | Clinical Summary ---
Author Organization [facility] Address [address] [place] [address] Care Team Providers Care Head Of Merchandise Buying Name Role Phone Grace Dyer MD Primary Care Provider [phone] Britni Parry DO Unavailable [phone] Allergies Active AllergyReactionsCriticalityNoted DateCommentsFentanylUnknownHigh 02/15/2021 Leg Weakness Oxycodone-AcetaminophenGI jfanxsdavpm47/06/2568BukhnzcdbfqVuquNck80/15/2021ulfa VqgesmpvrwwSywkGqg74/18/7596DbymoazfrjoQuwgLmh91/27/2018 Medications MedicationSigDispense QuantityRefillsLast FilledStart DateEnd DateStatus aspirin [...] Active Problems ProblemNoted DateDiagnosed DateArtificial knee joint wbtojyp0506/18/2023Internal derangement of left knee06/18/2023Malignant neoplasm of upper-outer quadrant of female gfukpa5806/18/2023Osteoarthritis of knee06/18/2023Status post total left knee nxuxlzirwqn01/15/2023Open wound of abdominal wall, anterior, complicated 10/01/2005Personal history of malignant neoplasm of rxczwa7508/13/2005 Encounters DateTypeDepartmentCare DdzvRymnevymyty05/22/2025Telephone [facility] [address] [place] [address] Balta Milton PA 08/24/2025Results Follow-Up [facility] [address] [place] [address] Balta Milton PA ALL CBC WITH AUTO DIFF, ALL SED RATE, ALL URIC ACID, Additional followed-up results: 9:30 AM EDTAncillary Procedure [place] [address] [place] [address] 08/20/2025 9:15 AM EDTOffice Visit [address] [place] [address] Balta Milton PA Acute right hip pain (Primary Dx); History of total right hip replacement; Right hip pain; Acute pain of left shoulder; Fpqjkladwefisv80/17/2025linisync Result Encounter [facility] Department Unsolicited Balta Milton PA 08/20/2025amboo flowsheet [facility] [address] [place] [address] Balta Milton PA 08/20/2025Travelfrom Last 3 Months Immunizations ImmunizationAdministration DatesNext DueInfluenza, seasonal, injectable 08/04/2019Influenza, trivalent, rizekqcjuc18/18/2021Moderna Bivalent Booster Kyisdqsyhvy39/14/2022Novel ayrclwwtn-Y8E3-65, preservative-free09/10/2009 Pneumococcal Polysaccharide GPAW44521649XVWW-LsR-3, Gfikzygwmvt44/09/2021, 12/12/2020 Family History Medical HistoryRelationNameCommentsHypertensionFatherEmphysemaMotherHypertension MotherRelationNameStatusCommentsBrother1 brotherDaughterAlive2 daughtersFather DeceasedMotherDeceasedMother's SisterAliveSister2 sistersSonAlive2 sons Social History Tobacco UseTypesPacks/DayYears UsedDateSmoking Tobacco: NeverSmokeless Tobacco: Never Tobacco Cessation:Counseling Given: Not Answered Alcohol UseStandard Drinks/WeekCommentsNot Currently0 (1 standard drink = 0.6 oz pure alcohol)CommentsUnknownSex and Gender InformationValueDate Recorded Sex Assigned at BirthNot on fileLegal KcaTohtaj88/15/2023 8:13 PM EDTGender IdentityNot on fileSexual OrientationNot on file Last Filed Vital Signs Vital SignReadingTime TakenCommentsBlood Qnuklirj797/9304 11:14 AM EDT Ffrtm010502/16/2025 11:14 AM EDTTemperature--Respiratory Rate--Oxygen Saturation 95%01/14/2025 11:17 AM EDTInhaled Oxygen Concentration--Bkstjx40.7 kg (189 lb) 02/16/2025 11:14 AM TGYJhveld423.6 cm (5' 6 )02/16/2025 11:14 AM EDTBody Mass Index30.51002/16/2025 11:14 AM EDT Plan of Treatment DateTypeDepartmentCare Team (Latest Contact Info)Ktfcjsvuxbi92/31/2025 10:45 AM EDTOffice Visit [facility] [address] [facility] [place] [address] Balta Milton PA [address] [facility] [place] [address] Procedures Procedure NamePriorityDate/TimeAssociated DiagnosisCommentsANTINUCLEAR ANTIBODIES, JQHEuzozvr93/17/2025 12:19 PM EDT ALL MISCELLANEOUS OMUMDmcjyso68/17/2025 12:19 PM EDT ALL MISCELLANEOUS RWOJOmwlnen88/17/2025 12:19 PM EDT LYME DISEASE SEROLOGY W/KPVMYTTckpirf77/17/2025 12:19 PM EDT [facility] RHEUMATOID RRUARXGxsgpkq54/17/2025 12:19 PM EDT ALL C REACTIVE GZPEXQBWwekuud78/17/2025 12:19 PM EDT ALL URIC QDYVXlwxina81/17/2025 12:19 PM EDT ALL SED LUMUDhhdvix71/17/2025 12:19 PM EDT ALL CBC WITH AUTO TPPITgegtly82/17/2025 12:19 PM EDT XR HIP 2 OR 3 VW PEICGKksnfxr09/17/2025 9:28 AM EDT Right hip pain from [...] ? Myositis Overlap Syndrome, Systemic Lupus ? Vqgbsybvnwlbz-Hkgudkmwrun-Dwslfqfxyt ? Myositis Overlap Syndrome, Systemic ? Autoimmune [...] Linear Scleroderma, Antiphospholipid Syndrome ?? Performed at: ??[address] ??[id number] Machine Sand Mixer: Cody Williamson PhD, Phone: ??[phone] Specimen (Source)Anatomical Location / LateralityCollection Method / Volume Collection TimeReceived Time08/20/2025 12:19 PM EDT1 12:41 PM EDT Narrative CLINISYNC - 08/24/2025 6:09 PM EDT Authorizing ProviderResult TypeResult StatusMakindred hospital [facility] BLOOD ORDERABLESFinal ResultPerforming OrganizationAddressSelect Medical Special[facility] CodePhone Number [facility] * LYME DISEASE SEROLOGY W/REFLEX (08/20/2025 12:19 [...] to 14 days is recommended. Performed at: ??[address] ??[id number] Machine Sand Mixer: Cody Williamson PhD, Phone: ??[phone] Specimen (Source)Anatomical Location / LateralityCollection Method / Volume Collection TimeReceived Time08/20/2025 12:19 PM EDT1 12:41 PM EDT Narrative CLINISYNC - 08/21/2025 12:08 PM EDT Authorizing ProviderResult TypeResult StatusMattSouth Shore Hospital Milton [facility] BLOOD ORDERABLESFinal ResultPerforming OrganizationAddSelect Specialty Hospital - Camp Hillty/State/ZIP CodePhone Number [facility] * [facility] RHEUMATOID FACTOR (08/20/2025 12:19 PM EDT)ComponentValueRef RangeTest MethodAnalysis TimePerformed AtPathologist SignatureRHEUMATOID FACTOR (RF)12.1 <14.0 IU/mLTBHComment: Performed at: ?? - [facility] [address] ??[id number] Machine Sand Mixer: Cody Williamson PhD, Phone: ??[phone] Specimen (Source)Anatomical Location / LateralityCollection Method / Volume Collection TimeReceived Time08/20/2025 12:19 PM EDT1 12:41 PM EDT Narrative CLINISYNC - 08/21/2025 10:08 AM EDT Authorizing ProviderResult TypeResult StatusBalta Milton PACLINISYNCFinal ResultPerforming OrganizationAddressCity/State/ZIP CodePhone Number [facility] * ALL URIC ACID (08/20/2025 12:19 PM EDT)ComponentValueRef RangeTest Method Analysis TimePerformed AtPathologist SignatureURIC ACID5.22.6 - 6.0 mg/dLTBH Specimen (Source)Anatomical Location / LateralityCollection Method / Volume Collection TimeReceived Time08/20/2025 12:19 PM EDT1 12:41 PM EDT Narrative CLINISYND - 08/20/2025 1:26 PM EDT Authorizing ProviderResult TypeResult StatusBalta Milton PACLINISYNCFinal ResultPerforming OrganizationAddressty/State/ZIP CodePhone Number [facility] * (ABNORMAL) ALL SED RATE (08/20/2025 12:19 PM EDT)ComponentValueRef RangeTest MethodAnalysis TimePerformed AtPathologist SignatureTBH SED RATE44(H)<=30 mm/hrTBHSpecimen (Source)Anatomical Location / LateralityCollection Method / VolumeCollection TimeReceived Time08/20/2025 12:19 PM EDT1 12:41 PM EDT Narrative CLINISYNC - 08/20/2025 1:26 PM EDT Authorizing ProviderResult TypeResult StatusBalta Milton PACLINISYNCFinal ResultPerforming OrganizationAddressCity/State/ZIP CodePhone Number [facility] * ALL MISCELLANEOUS TEST (08/20/2025 12:19 PM EDT) Only the most recent of2 resultswithin the time period is included. ComponentValueRef RangeTest MethodAnalysis TimePerformed AtPathologist Signature MISCELLANEOUS TESTCOMMENT.TBHComment: Test Ordered: [id number] Ceron Antibodies Ceron Antibodies <0.2 AI CB ?? Reference Range: 0.0-0.9 Performed at: ??CB - [facility] [address] ??[id number] Machine Sand Mixer: Cody Williamson PhD, Phone: ??[phone] Specimen (Source)Anatomical Location / LateralityCollection Method / Volume Collection TimeReceived Time08/20/2025 12:19 PM EDT1 12:41 PM EDT Narrative CLINISYNC - 08/23/2025 4:09 PM EDT [id number] Ceron Antibodies Authorizing ProviderResult TypeResult StatusMatthew Faizan Milton PACLINISYNCFinal ResultPerforming OrganizationAddressCity/State/ZIP CodePhone Number [facility] * (ABNORMAL) ALL CBC WITH AUTO DIFF (08/20/2025 12:19 PM EDT)ComponentValueRef RangeTest MethodAnalysis TimePerformed AtPathologist SignatureTBH WBC8.34.0 - 11.0 10 3/uLTBHTBH RBC4.454.20 - 5.40 10 6/uLTBHTBH HGB13.412.0 - 16.0 g/dLTBH TBH HCT41.136.0 - 48.0 %TBHTBH MCV92.481.0 - 99.0 fLTBHTBH MCH30.126.7 - 34.0 pgTBHTBH MCHC32.629.9 - 35.2 g/dLTBHTBH RDW14.011.0 - 15.0 %TBHTBH MWV301116 - 450 10 3/uLTBHTBH MPV10.29.5 - 13.5 [...] PM EDT 08/20/2025 12:41 PM EDT Narrative CLINISYND - 08/20/2025 1:17 PM EDT Authorizing ProviderResult TypeResult StatusMaclifton Milton PACLINISYNCFinal ResultPerforming OrganizationAddressCity/State/ZIP CodePhone Number [facility] * ALL C REACTIVE PROTEIN (08/20/2025 12:19 PM EDT)ComponentValueRef RangeTest MethodAnalysis TimePerformed AtPathologist SignatureC REACTIVE PROTEIN<0.50 <=0.50 mg/dLTBHSpecimen (Source)Anatomical Location / LateralityCollection Method / VolumeCollection TimeReceived Time08/20/2025 12:19 PM EDT1 12:41 PM EDT Narrative CLINISYNC - 08/20/2025 1:26 PM EDT Authorizing ProviderResult TypeResult StatusMaclifton Milton PACLINISYNCFinal ResultPerforming OrganizationAddressCity/State/ZIP CodePhone Number [facility] * XR hip right 2 or 3 [...] DateEnd Date Grace Dyer MD [address] [facility] [place] [address] PCP - GeneralFamily Medicine05/21/23 Britni Parry DO [address] [place] [address] Referring PhysicianNeurology01/14/25
--- OUTSIDE RECORDS SUMMARY | 2025-08-29 09:37 | XMS_ITS | Encounter Summary ---
Author Organization [facility] Address [address] [place] [address] Care Team Providers Care Dynamite Packing Machine Feeder Name Role Phone Grace Dyer MD Primary Care Provider [phone] Britni Parry DO Unavailable [phone] Encounter Details DateTypeDepartmentCare Team (Latest Contact Info)Pixtidusmby00/17/2025amboo flowsheet [facility] [address] [place] [address] Balta iMlton PA [address] [place] [address] Social History Tobacco UseTypesPacks/DayYears UsedDateSmoking Tobacco: NeverSmokeless Tobacco: NeverAlcohol UseStandard Drinks/WeekCommentsNot Currently0 (1 standard drink = 0.6 oz pure alcohol)CommentsUnknownSex and Gender InformationValueDate RecordedSex Assigned at BirthNot on fileLegal ZucNoiemf08/15/2023 8:13 PM EDT Gender IdentityNot on fileSexual OrientationNot on filedocumented as of this encounter Plan of Treatment DateTypeDepartmentCare Team (Latest Contact Info)Qwfbkyjwroi37/31/2025 10:45 AM EDTOffice Visit [facility] [address] [place] [address] Balta Milton PA [address] [place] [address] documented as of this encounter Visit Diagnoses Not on filedocumented in this encounter Care Teams Team MemberRelationshipSpecialtyStart DateEnd Date Grace Dyer MD [address] [place] [address] PCP - GeneralFamily Medicine05/21/23 Britni Parry DO [address] [place] [address] Referring PhysicianNeurology01/14/25documented as of this encounter
--- OUTSIDE RECORDS SUMMARY | 2025-08-29 09:37 | XMS_ITS | Clinical Summary ---
Author Organization [employer] Address [id number] [address] [place] [address] Care Team Providers Care Beef Killer Name Role Phone Grace Dyer MD Primary Care Provider [phone] Allergies Active AllergyReactionsCriticalityNoted DateCommentsFentanylOther (See Comments) High02/15/2021 Leg Weakness UrhahtncqhgDidkMir57/27/2018Oxycodone-AcetaminophenGI Tiqblerwzwn19/06/2005 KeyqbavawyfRgvgIxv91/15/2021ulfa GjesPfuzMdy79/14/2012 Medications MedicationSigDispense QuantityRefillsLast FilledStart DateEnd DateStatus multivitamin [...] standard drink = 0.6 oz pure alcohol)rarelyChildcareAnswerDate HdxsuopeLtpszzdhtTrqzurn84/12/2019Employment AnswerDate NsyqbhkyTzafcrybxcFfwnghe15/12/2019Hunger ScreeningAnswerDate RecordedWithin the past 12 months we worried whether our food would run out before we got money to buy more.Never True09/16/2024Within the past 12 months the food we bought just didn't last and we didn't have money to get more.Never True4Purpose - LifeAnswerDate RecordedPurpose and direction in life Nvflygy66/11/2021CommentsNoSex and Gender InformationValueDate Recorded Sex Assigned at BirthNot on fileLegal NqxNvtets01/06/2015 12:11 PM EDTGender IdentityNot on fileSexual OrientationNot on file Last Filed Vital Signs Vital SignReadingTime TakenCommentsBlood Iwbcaqpl479/7510 9:22 AM EDT Jgvmj626509/02/2024 9:22 AM ZRIBblmtmkokew52.1 ??C (98.7 ??F)07/21/2023 12:39 PM EDTRespiratory Hgcv582807/21/2023 1:16 PM EDTOxygen Gkxpeeoexq23%07/21/2023 1:16 PM EDTInhaled Oxygen Concentration--Ylkuvs25.7 kg (186 lb 11.2 oz)09/16/2024 10:42 AM AGVRtaqdu215.2 cm (5' 7 )09/02/2024 9:22 AM EDTBody Mass Index29.24 09/02/2024 9:22 AM EDT Plan of Treatment Health MaintenanceDue DateLast DoneCommentsDepression Xgzaltimz51/18/1968Adult BMI Follow Up Plan1973DTaP,Tdap and Td Vaccines (1 - Tdap)1974Zoster (Shingles) Vaccine (1 of 2)2005Fall Risk Usengdwvp36/18/2021Colonoscopy /OVID-19 Vaccine ( season)/, 08/28/2021, 01/10/2021, Additional history existsInfluenza Owdsqti7107/05/2025 08/21/2021, 08/04/2019, 08/04/2018, Additional history existsAdult BMI Screening /Tobacco Xbofvyozc69 Goals GoalPatient Goal TypeAssociated ProblemsRecent ProgressPatient-Stated?Author Home with [facility] Swapna Lagunas LSW Note: Evaluation of progress towards goal: Home with family support and [facility] PT services Medical Devices ImplantedTypeAreaManufacturerDevice IdentifierShelf Expiration DateModel / Serial / LotCement Bn Bio 40gm Rpl [id number] - Sn/A - [id number] Implanted:Qty: 1 on 06/25/2023 by Arik Adrian Jr[facility] KneeZimmer [id number] / N/A / [id number] Bn Bio 40gm Rpl [id number] - Sn/A - [id number] Implanted:Qty: 1 on 06/25/2023 by Arik Adrian Jr., [facility]: KneeZimmer [id number] / N/A / [id number] Artc 3-4 E-F 10mm Kn Fx Brng Prlng Nxgn Lpsflx Strl Lpsflx Rpl [id number] + 71769 - Sn/A - [id number] Implanted:Qty: 1 on 06/25/2023 by Arik Adrian Jr., DO at [facility] ImplantRight: KneeZimmer Biomet [id number] / N/A / [id number] Fem E Kn Rt Lpsflx Gndr Melissa? Nxgn Cocr Rpl [id number] - Sn/A - [id number] Implanted:Qty: 1 on 06/25/2023 by Arik Adrian Jr., DO at [facility] ImplantRight: KneeZimmer Biomet [id number]/22/612970-0671-518-01 / N/A / [id number] Ptlr 32mm Persona Alply Kn Strl Lf - Sn/A - [id number] Implanted:Qty: 1 on 06/25/2023 by Arik Adrian Jr., DO at [facility] ImplantRight: KneeZimmer Xlvloj1002/24/2028 [id number] / N/A / [id number] Tib 67n34cy Nxgn Kn Cmnt Mdlr Stm Prect 4 Tiv Pmma Rpl [id number] + 900031 - Sn/A - [id number] Implanted:Qty: 1 on 06/25/2023 by [facility]k Adrian Jr[facility]lateRight: KneeZimmer [id number] 94-7310-923-02 / N/A / [id number]lomfdAszpct IdentifierShelf Expiration DateModel / Serial / LotScrew Gd 48mm Qd-Spr Hex Hd Mis Strl - [id number] - [id number] Explanted:Qty: 1 on 06/25/2023 by [facility] KneeZier [id number] / / [id number] Gd 48mm Qd-Spr Hex Hd Mis Strl - [id number] - [id number] Explanted:Qty: 1 on 06/25/2023 [facility] KneeZimmer [id number] / / [id number] Bn 35mm 6.5mm St Hip Actb Trlg Strl Rpl [id number]+32 - [id number] - [id number] Explanted:Qty: 1 on 06/25/2023 by Arik Adrian Jr[facility] KneeZier [id number] / [id number] / [id number] Bn 35mm 6.5mm St Hip Actb Trlg Strl Rpl [id number]+32 - [id number] - [id number] Explanted:Qty: 1 on 06/25/2023 by Arik Adrian Jr[facility]: KneeJahmmtricia [id number] / [id number] / [id number] Procedures Procedure NamePriorityDate/TimeAssociated DiagnosisCommentsCOLONOSCOPYRoutine 02/05/2024 History of colon polyps from Last 3 Months or Most Recently Relevant to Health Maintenance Results * Colonoscopy (02/05/2024) Narrative Authorizing ProviderResult TypeResult StatusJefarida Bean [facility]ENTERGI PROCEDURE ORDERABLESFinal ResultPerforming OrganizationAddressCity/State/ZIP CodePhone Number MANUALLY TRANSCRIBED RESULTS from Last 3 Months or Most Recently Relevant to Health Maintenance Insurance Advance Directives * Full Code (Latest Code Status on File) Date ActivatedDate InactivatedComments06/24/2023 8:52 PM06/26/2023 3:54 PM Care Teams Team MemberRelationshipSpecialtyStart DateEnd Date Grace Dyer MD [address] [id number] [facility] - General04/30/18
--- OUTSIDE RECORDS SUMMARY | 2025-08-29 09:37 | XMS_ITS | Clinical Summary ---
Author Organization [facility] Address [address] [place] [address] Care Team Providers Care Manager Transition Name Role Phone Grace Dyer MD Primary Care Provider [phone] Allergies Active AllergyReactionsCriticalityNoted HrulLipaqbltDbzqiswtAihwbcd78/14/2021 YkvqaxjpsenUgsw61/15/2021Oxycodone-AcetaminophenGI Upset10/09/2005Sulfa DyneRash 09/17/20127049QqoveakrwzfLuufGer16/27/2018 Medications MedicationSigDispense QuantityRefillsLast FilledStart DateEnd DateStatus MULTIVITAMIN [...] 2 TABLETS BY MOUTH ONCE DAILY OR CHXEHQGM46/31/2022ctive aspirin, enteric coated (ASPIRIN, ENTERIC COATED) 81 mg EC tablet Take 81 mg by mouth once daily.Active HYDROcodone-acetaminophen (NORCO) 5-325 mg per tablet 02/13/2022ctive Active Problems ProblemNoted DateDiagnosed DateOpen wound of abdominal wall, anterior, uhvhgjdpkqu44/28/2005Personal history of malignant neoplasm of olptmh6808/13/2005 Malignant neoplasm of upper-outer quadrant of female breastHip joint replacement by other means Immunizations ImmunizationAdministration DatesNext DueCOVID-19 vaccine, unspecified omwiufkbvww61/09/2021,12/12/2020influenza (IIV3) vaccine, trivalent (AFLURIA, FLULAVAL, FLUVIRIN, FLUZONE)08/04/2019influenza (aIIV3) vaccine, age 65+ yr, trivalent, PF (FLUAD)08/21/2021novel influenza (C3Z4-23) vaccine, PF09/10/2009 pneumococcal polysaccharide (PPV23) vaccine, 23 valent (PNEUMOVAX 23)06/12/2021 Family History Medical HistoryRelationCommentsDiabetesFatherHypertensionFatherBreast Cancer Maternal GrandmotherRelationStatusCommentsBrother 1AliveBrother 2AliveBrother 3 AliveFatherDeceasedMaternal GrandmotherMotherDeceasedSister 1AliveSister 2Alive Sister 3AliveSister 4AliveSister 5AliveSister 6Alive Social History Tobacco UseTypesPacks/DayYears UsedDateSmoking Tobacco: NgioiuPutrapukin77 Smokeless Tobacco: NeverAlcohol UseStandard Drinks/WeekCommentsYes0 (1 standard drink = 0.6 oz pure alcohol)Area Deprivation IndexAnswerDate RecordedNational Score (1-100), lower number is lower suie492002/21/2023State Score (1-10), lower number is lower riskNot on file3Data from: https://www.neighborhoodatlas.medicine.[facility].edu/. Last address used for bgkybdluwoj[address]3CommentsNoSex and Gender Information ValueDate RecordedSex Assigned at BirthNot on fileLegal HpqWnayhm45/02/2012 10:05 AM ESTGender IdentityNot on fileSexual OrientationNot on file Last Filed Vital Signs Vital SignReadingTime TakenCommentsBlood Fsevewuj780/8504 11:07 AM EDT Thsve1704 11:07 AM EIBVnwpyerdcfi35.3 ??C (97.4 ??F)02/15/2022 11:07 AM EDTRespiratory Wshs806502/15/2022 11:07 AM EDTOxygen Bferglpjhv10%02/15/2022 11:07 AM EDTInhaled Oxygen Concentration--Exbidd46.1 kg (192 lb)02/15/2022 11:07 AM EDTverbal per qdZxnboq575.2 cm (5' 7.01 )02/15/2022 11:07 AM EDTBody Mass Index 30.0602/15/2022 11:07 AM EDT Plan of Treatment Health MaintenanceDue DateLast DoneCommentsAnxiety Hovbyuhmw35/18/1974Depression Qahpiuuvy56/18/1974Hepatitis C Hvammeewp64/18/1974DTaP,Tdap,Td Vaccine (1 - Tdap)1974Mammogram Ajufpuvdl53/18/1996CT Zzyhiuapehmc41/18/2001Cologuard (FIT-DNA)11/21/20002608Fdaqeuhtjhh67/18/2001Colorectal Cancer Myvlbllkj11/18/2001 Fecal Occult Blood2000Lipid Sfvrpbjts74/18/4579Kcrhrciafshkn13/18/2001 Shingrix Vaccine (1 of 2)2005Bone Density Rswtfdbqq97/18/2021neumococcal Vaccine: 50+ (2 of 2 - PCV)/dvance Directive Discussion 11/04/2024Diabetes Jujrdwbwz17, 01/26/2014, 08/23/2006, Additional history existsCovid-19 Vaccine ( season)2025 08/28/2021, 01/10/2021, 12/12/2020Influenza Vaccine (#1), 08/04/2019, 09/10/2009RSV Vaccine (1 - 1-dose 75+ series)2030 Procedures Procedure NamePriorityDate/TimeAssociated DiagnosisCommentsCOMPREHENSIVE METABOLIC VFBXNLkqmzos98/14/2022 11:01 AM EDT Malignant neoplasm of upper-outer quadrant of left breast in female, estrogen receptor positive (HCC) from Last 3 Months or Most Recently Relevant to Health Maintenance Results * (ABNORMAL) COMP METABOLIC PANEL (02/15/2022 11:01 AM EDT)ComponentValueRef RangeTest MethodAnalysis TimePerformed AtPathologist SignatureProtein, Total 7.16.3 - 8.0 g/dL02/15/2022 11:32 AM [facility] Albumin4.53.9 - 4.9 g/dL02/15/2022 11:32 AM EDMINNIE [facility] LABCalcium, Total9.78.5 - 10.2 mg/dL02/15/2022 11:32 [address] [facility] LABBilirubin, Total1.10.2 - 1.3 mg/dL02/15/2022 11:32 AM [facility] LABAlkaline Epsgluwgixv0087 - 123 U/L 02/15/2022 11:32 AM [facility] NWNIEB0634 - 35 U/L 02/15/2022 11:32 AM [facility] UUPZJJ638 - 38 U/L 02/15/2022 11:32 AM [facility] TGADrauhux578(H)74 - 99 mg/dL02/15/2022 11:32 AM [facility] LABComment: The [place] Diabetes Association (ADA) provides guidance for cutoff [...] Standards of Medical Care in Diabetes 2016, [place] Diabetes Association. Diabetes Care. 2016.39(Suppl 1). BUN23(H)7 - 21 mg/dL02/15/2022 11:32 AM [facility]TNORTHCO[facility] Creatinine0.820.58 - 0.96 mg/dL02/15/2022 11:32 AM [facility] JDWDsdxzb984(L)136 - 144 mmol/L02/15/2022 11:32 AM [facility] LABPotassium3.93.7 - 5.1 mmol/L02/15/2022 11:32 AM [facility] KZYSzjsjasd37780 - 105 mmol/L02/15/2022 11:[address] [facility] JDPGW41417 - 30 mmol/L02/15/2022 11:[address] [facility] LABAnion Gap99 - 18 mmol/L02/15/2022 11:32 AM TST[facility] LABEstimated Glomerular Filtration Rate79 >=60 mL/min/1.73m 02/15/2022 11:32 AM [facility] LABComment:Estimated Glomerular Filtration Rate (eGFR) is [...] VolumeCollection TimeReceived TimeBloodBLOOD SPECIMEN / UnknownVenipuncture / Pbjfwvr6402/15/2022 11:01 AM EDT02/15/2022 11:01 AM EDT Narrative Authorizing ProviderResult TypeResult StatusBrjordan Corbin MDLABORATORY Final ResultPerforming OrganizationAddressCity/State/ZIP CodePhone Number [facility] [address] [place] [address] from Last 3 Months or Most Recently Relevant to Health Maintenance Insurance MemberSubscriberPlan / Payer (Effective 2020-Present)Name:Uzma Ramirez Member ID:[id number] Relation to Subscriber:SelfName:Uzma Ramirez Subscriber ID:[id number] Payer ID:Not on file Group ID:Not on file Type:Medicare Address: [facility] [place] [id number] * Guarantor: Uzma Ramirez TypeRelation to PatientDate of BirthPhone Billing AddressSelf KirHbya97 1955 [address] [place] [address] Care Teams Team MemberRelationshipSpecialtyStart DateEnd Grace Dyer MD [address] [facility] [place] [place] [address] PCP - GeneralFamily Medicine01/26/14
[2025-08-29 10:39] LABS: Microalbum Creatinine Ratio Ur 136.9 mg/g (0.0-29.9)
== END 2025-08-29 09:33 | disposition home or self-care (01) ==
LOC: LAB 09:32
PROVIDERS: PCP Family Medicine; Visit Provider Family Medicine
DX: E78.5 Hyperlipidemia, unspecified (principal); I10 Essential (primary) hypertension
CPT/HCPCS: 82043; 82570

== ENCOUNTER 2025-09-01 13:59 | Outpatient (OUT) | payer MEDICARE, SELFPAY ==
--- OUTSIDE RECORDS SUMMARY | 2025-08-20 09:15 | XMS_ITS | Encounter Summary ---
Author Organization [facility] Address [address] [facility] [place] [address] Care Team Providers Care Radiology Transporter Name Role Phone Grace Dyer MD Primary Care Provider [phone] Britni Parry DO Unavailable [phone] Reason for Visit * ReasonCommentsPain Encounter Details DateTypeDepartmentCare Team (Latest Contact Info)Zujsyjokkoq38/17/2025 9:15 AM EDTOffice Visit [facility] [address] [place] [address] Balta Milton PA [address] [facility] [place] [address] Acute right hip pain (Primary Dx); History of total right hip replacement; Right hip pain; Acute pain of left shoulder; Polyarthralgia Social History Tobacco UseTypesPacks/DayYears UsedDateSmoking Tobacco: NeverSmokeless Tobacco: NeverAlcohol UseStandard Drinks/WeekCommentsNot Currently0 (1 standard drink = 0.6 oz pure alcohol)CommentsUnknownSex and Gender InformationValueDate RecordedSex Assigned at BirthNot on fileLegal KmmJmnxey70/15/2023 8:13 PM EDT Gender IdentityNot on fileSexual OrientationNot on filedocumented as of this encounter Progress Notes * LUIS Franklin - 08/20/2025 9:15 AM EDT Images from the original note were not included. Orthopedic Office note: NAME: Uzma Gloria James : 1955 EST PT WITH FLARE UP RT HIP PAIN ~2DAYS- NO KNOWN INJURY HX RT IAN 10/07/[address] LOPEZ XRAY RT HIP TODAY EPIC 08/20/25 PAIN LATERAL HIP- SOME RELIEF WITH SITTING- INCREASE PAIN WITH WB- SOME DIFFICULTY GETTING INTO CAR- +TYLENOL- +WAKES HS Physical Exam General Appearance: Normal. Respiratory: No acute distress. Musculoskeletal: Mild tenderness over the hip bursa, but pain is present in the anterior and posterior hip upon palpation. No pain with range of motion. Skin: Warm and dry, no rash. Neurological: Normal. Hip Musculoskeletal Exam Gait Gait is normal. Inspection Leg length disparity: no discrepancy Right Erythema: none Ecchymosis: none Edema: none Deformity: none Previous incision: anterolateral Incision: well-healed Palpation Right Right hip palpation is normal. Increased warmth: none Tenderness: present Greater trochanteric region pain: mild Pubic rami pain: mild Lower lumbar region pain: mild Range of Motion Right Right hip range of motion is within functional limits. Active ROM: normal and no pain. Passive ROM: normal and no pain. Strength Right Right hip strength is normal. Extension: 5/5. Flexion: 5/5. Internal rotation: 5/5. External rotation: 5/5. Adduction: 5/5. Abduction: 5/5. Abduction is affected by pain. (minimal) Neurovascular Right Right hip neurovascular exam is normal. Pulses - PT: normal Posterior tibial: 2+ General Constitutional: appears stated age Labored breathing: no Psychiatric: normal mood and affect Neurological: alert and oriented x3 Skin: intact Lymphadenopathy: none Shoulder Musculoskeletal Exam Inspection Left Left shoulder inspection is normal. Ecchymosis: none Peripheral edema: none Atrophy: none Masses: none Palpation Left Left shoulder palpation is normal. Crepitus: no crepitus Increased warmth: none Tenderness: present Anterior shoulder: mild Posterior shoulder: mild Clavicle: none AC joint: mild Sternoclavicular joint: none Rotator cuff: mild Greater tuberosity: mild Trapezius: mild Medial scapula: mild Superior pole of scapula: mild Inferior pole of scapula: none Bicipital groove: none Proximal biceps: none Distal biceps: none Lateral arm: mild Elbow: none Range of Motion Left Left shoulder range of motion is normal. Active ROM: normal and no pain. Passive ROM: normal and no pain. Strength Left External rotation: 5/5. Internal rotation: 5/5. Abduction: 5/5. Biceps: 5/5. Triceps: 5/5. Neurovascular Left Radial pulse: normal and 2+ Capillary refill: <3 sec Axillary nerve sensory distribution: normal Scapula Left Left shoulder scapula is normal. Position: normal Winging: none Special Tests Left Rotator Cuff Signs Neer's test: negative Reddy test: negative Biceps/rita Signs Speed's test: negative AC Joint Signs Active horizontal adduction pain: negative General Constitutional: appears stated age Labored breathing: no Psychiatric: normal mood and affect Neurological: alert and oriented x3 Skin: intact Lymphadenopathy: none Orders Placed This Encounter Procedures XR hip right 2 or 3 views Reason for exam:: PAIN Procedures Results ICD-10-CM 1. Acute right hip pain M25.551 predniSONE (Deltasone) 20 MG tablet traMADol (Ultram) 50 MG tablet 2. History of total right hip replacement Z96.641 3. Right hip pain M25.551 XR hip right 2 or 3 views 4. Acute pain of left shoulder M25.512 predniSONE (Deltasone) 20 MG tablet traMADol (Ultram) 50 MG tablet 5. Polyarthralgia M25.50 predniSONE (Deltasone) 20 MG tablet traMADol (Ultram) 50 MG tablet Assessment & Plan Polyarthralgia She reports waking up with right generalized hip pain and left shoulder pain the next day without any injury. The pain is significant, rated at 8 out of 10 even at rest, and does not involve her hands or wrists. She has bilateral hip and bilateral knee replacements. There are no recent medication changes, fever, or infection. On examination, there is mild tenderness over the hip bursa with pain on palpation but no pain with range of motion. The onset, severity of pain, and physical examination findings raise concerns for an autoimmune process. A benign right hip x-ray was noted. Diagnostic plan: Labs for autoimmune panel pending. Treatment plan: Prednisone will be started with a discussion of risks and benefits. A short supply of tramadol will be provided. She is advised to go to the ER if symptoms worsen over the weekend or if she develops fever or infection. Patient is aware of the need for urgent evaluation if symptoms es calate and is thankful with no further concerns or questions. Pt to take least effectiev dose of tramadol pending relief with oral steoris. Clinical decision making: Discussion of risks and benefits of prednisone. Follow-up: None mentioned. PROCEDURE The patient has a history of bilateral hip and bilateral knee replacements. Questions answered in laymen terms at the bedside. The diagnosis, home exercise plan and any ongoing restrictions/ recommendations reviewed. If unable to be reached in office, I recommend evaluation at nearest Emergency Room if any symptoms worsened or new symptoms develop for requiring urgent evaluation. Visit was preformed using Brainly speech recognition. documented in this encounter Plan of Treatment DateTypeDepartmentCare Team (Latest Contact Info)Iqasbrybwuo94/31/2025 10:45 AM EDTOffice Visit [facility] [address] [place] [address] Balta Milton PA [address] [facility] [place] [address] NameTypePriorityAssociated DiagnosesOrder ScheduleRheumatoid factorLabRoutine Polyarthralgia Expected: 08/20/2025 (Approximate), Expires: 08/20/2026NALabRoutine Polyarthralgia Expected: 08/20/2025 (Approximate), Expires: 08/20/2026LYME DISEASE ANTIBODY (IGG), IMMUNOBLOTLabRoutine Polyarthralgia Expected: 08/20/2025 (Approximate), Expires: 08/20/2026Uric acidLabRoutine Polyarthralgia Expected: 08/20/2025 (Approximate), Expires: 08/20/2026SYSTEMIC LUPUS ERYTHEMATOSUS (SLE), DISEASE ACTIVITY PANELLabRoutine Polyarthralgia Expected: 08/20/2025 (Approximate), Expires: 08/20/2026-reactive proteinLab Routine Polyarthralgia Expected: 08/20/2025 (Approximate), Expires: 08/20/2026Sedimentation rate, automatedLabRoutine Polyarthralgia Expected: 08/20/2025 (Approximate), Expires: 08/20/2026BC and differentialLab Routine Polyarthralgia Expected: 08/20/2025 (Approximate), Expires: 08/20/2026HLA-B27 antigenLabRoutine Polyarthralgia Expected: 08/20/2025 (Approximate), Expires: 08/20/2026documented as of this encounter Procedures Procedure NamePriorityDate/TimeAssociated DiagnosisCommentsXR HIP 2 OR 3 VW UKESVNerxrjt01/17/2025 9:28 AM EDT Right hip pain documented in this encounter Results * XR hip right 2 or 3 views (08/20/2025 9:28 AM EDT)Anatomical RegionLaterality ModalityLower Extremities, HipRightRadiographic ImagingSpecimen (Source) Anatomical Location / LateralityCollection Method / VolumeCollection Time Received Time Narrative 08/20/2025 12:49 PM EDT Imaging Result: AP and Lateral Right hip: AP and lateral of right hip showed acceptable position and alignment of right total hip arthroplasty. There was no evidence of loosening of the acetabular cup or femoral stem. Femoral head was well centered in the acetabular liner without evidence of asymmetric or accelerated wear. There was no gross evidence of fracture and/or dislocation. Impression: Unremarkable right total hip arthroplasty. Authorizing ProviderResult TypeResult StatusMatthew Faizan Milton PAIMG XR PROCEDURES Final Result documented in this encounter Visit Diagnoses Diagnosis Acute right hip pain- Primary History of total right hip replacement Right hip pain Pain in joint, pelvic region and thigh Acute pain of left shoulder Polyarthralgia Pain in joint, multiple sites documented in this encounter Care Teams Team MemberRelationshipSpecialtyStart DateEnd Date Grace Dyer MD [address] [place] [address] PCP - GeneralFamily Medicine05/21/23 Britni Parry DO [address] [place] [address] Referring PhysicianNeurology01/14/25documented as of this encounter
--- OUTSIDE RECORDS SUMMARY | 2025-08-20 09:30 | XMS_ITS | Encounter Summary ---
Author Organization [facility] Address [address] [facility] [place] [address] Care Team Providers Care Poultry Farm Laborer Name Role Phone Grace Dyer MD Primary Care Provider [phone] Britni Parry DO Unavailable [phone] Encounter Details DateTypeDepartmentCare Team (Latest Contact Info)Zctvxutojhs86/17/2025 9:30 AM EDTAncillary Procedure [facility] [address] [place] [address] Social History Tobacco UseTypesPacks/DayYears UsedDateSmoking Tobacco: NeverSmokeless Tobacco: NeverAlcohol UseStandard Drinks/WeekCommentsNot Currently0 (1 standard drink = 0.6 oz pure alcohol)CommentsUnknownSex and Gender InformationValueDate RecordedSex Assigned at BirthNot on fileLegal YefBqmdpo55/15/2023 8:13 PM EDT Gender IdentityNot on fileSexual OrientationNot on filedocumented as of this encounter Plan of Treatment DateTypeDepartmentCare Team (Latest Contact Info)Agzjylcpyqw57/31/2025 10:45 AM EDTOffice Visit [facility] [address] [place] [address] Balta Mitlon, PA [address] [place] [address] documented as of this encounter Procedures Procedure NamePriorityDate/TimeAssociated DiagnosisCommentsXR HIP 2 OR 3 VW WCMZUNvbyvme35/17/2025 9:28 AM EDT Right hip pain documented [...] DateEnd Date Grace Dyer MD [address] [facility] [place] [address] PCP - GeneralFamily Medicine05/21/23 Britni Parry DO [address] [place] [address] Referring PhysicianNeurology01/14/25documented as of this encounter
--- OUTSIDE RECORDS SUMMARY | 2025-09-01 14:01 | XMS_ITS | Encounter Summary ---
Author Organization [facility] Address [address] [place] [address] Care Team Providers Care Kindergarten Paraprofessional Name Role Phone Grace Dyer MD Primary Care Provider [phone] Britni Parry DO Unavailable [phone] Encounter Details DateTypeDepartmentCare Team (Latest Contact Info)Sfwgsdfbwqf66/17/2025linisync Result Encounter [facility] External Department Unsolicited Balta Milton PA [address] [place] [address] Social History Tobacco UseTypesPacks/DayYears UsedDateSmoking Tobacco: NeverSmokeless Tobacco: NeverAlcohol UseStandard Drinks/WeekCommentsNot Currently0 (1 standard drink = 0.6 oz pure alcohol)CommentsUnknownSex and Gender InformationValueDate RecordedSex Assigned at BirthNot on fileLegal ZmxDgxjnw46/15/2023 8:13 PM EDT Gender IdentityNot on fileSexual OrientationNot on filedocumented as of this encounter Plan of Treatment DateTypeDepartmentCare Team (Latest Contact Info)Rchnkkvagxi01/31/2025 10:45 AM EDTOffice Visit [facility] [address] [place] [address] Balta Milton PA [address] [place] [address] documented as of this encounter Procedures Procedure NamePriorityDate/TimeAssociated DiagnosisCommentsANTINUCLEAR ANTIBODIES, ZFAMrsivag03/17/2025 12:19 PM EDT LYME DISEASE SEROLOGY W/TXTOZURcdlsso98/17/2025 12:19 PM EDT [facility] RHEUMATOID QGCNQOCislhyw86/17/2025 12:19 PM EDT ALL URIC NJBSPliqlon01/17/2025 12:19 PM EDT ALL SED CLRGOqjrtzi38/17/2025 12:19 PM EDT ALL MISCELLANEOUS JBVQYapshpz32/17/2025 12:19 PM EDT ALL MISCELLANEOUS VCVXInppimx25/17/2025 12:19 PM EDT ALL CBC WITH AUTO NHHEAryspva72/17/2025 12:19 PM EDT ALL C REACTIVE ALCWGSPUkwhibw94/17/2025 12:19 PM EDT documented in this encounter [...] ? Myositis Overlap Syndrome, Systemic Lupus ? Dffrjouputixj-Vpyzakhnuww-Murxkafvgy ? Myositis Overlap Syndrome, Systemic ? Autoimmune [...] Syndrome ?? Performed at: ??CB - [facility] [address], [place], [place] ??[id number] Manager Library: Cody Williamson PhD, Phone: ??[phone] Specimen (Source)Anatomical Location / LateralityCollection Method / Volume Collection TimeReceived Time08/20/2025 12:19 PM EDT1 12:41 PM EDT Narrative CLINISYNC - 08/24/2025 6:09 PM EDT Authorizing ProviderResult TypeResult StatusBalta Milton PALAB BLOOD ORDERABLESFinal ResultPerforming OrganizationAddPhysicians Care Surgical Hospitalty/State/ZIP CodePhone Number [facility] * ALL MISCELLANEOUS TEST (08/20/2025 12:19 PM EDT)ComponentValueRef RangeTest MethodAnalysis TimePerformed AtPathologist SignatureMISCELLANEOUS TESTCOMMENT. TBHComment: Test Ordered: [id number] Ceron Antibodies Ceron Antibodies <0.2 AI CB ?? Reference Range: 0.0-0.9 Performed at: ?? - [address] ??[id number] Manager Library: Cody Williamson PhD, Phone: ??[phone] Specimen (Source)Anatomical Location / LateralityCollection Method / Volume Collection TimeReceived Time08/20/2025 12:19 PM EDT1 12:41 PM EDT Narrative CLINISYNC - 08/23/2025 4:09 PM EDT [id number] Ceron Antibodies Authorizing ProviderResult TypeResult StatusBalta Milton PACLINISYNCFinal ResultPerforming OrganizationAddressty/[facility] CodePhone Number [facility] * ALL MISCELLANEOUS TEST (08/20/2025 12:19 PM EDT)ComponentValueRef RangeTest MethodAnalysis TimePerformed AtPathologist SignatureMISCELLANEOUS TESTCOMMENT. TBHComment: Test Ordered: [id number] LIQUOR COMMISSIONER Antibodies LIQUOR COMMISSIONER Antibodies <0.2 AI CB ?? Reference Range: 0.0-0.9 Performed at: ??[facility] [address] ??[id number] Manager Library: Cody Williamson PhD, Phone: ??[phone] Specimen (Source)Anatomical Location / LateralityCollection Method / Volume Collection TimeReceived Time08/20/2025 12:19 PM EDT1 12:41 PM EDT Narrative CLINISYNC - 08/23/2025 4:09 PM EDT [id number] LIQUOR COMMISSIONER Antibodies Authorizing ProviderResult TypeResult StatusMattmima Milton PACLINISYNCFinal ResultPerforming OrganizationAddressty/State/ZIP CodePhone Number [facility] * LYME DISEASE SEROLOGY W/REFLEX (08/20/2025 [...] to 14 days is recommended. Performed at: ??[address] ??[id number] Manager Library: Cody Williamson PhD, Phone: ??[phone] Specimen (Source)Anatomical Location / LateralityCollection Method / Volume Collection TimeReceived Time08/20/2025 12:19 PM EDT1 12:41 PM EDT Narrative CLINISYNC - 08/21/2025 12:08 PM EDT Authorizing ProviderResult TypeResult StatusBalta Milton PALAB BLOOD ORDERABLESFinal ResultPerforming OrganizationAddressty/[facility]/ZIP CodePhone Number [facility] * [facility] RHEUMATOID FACTOR (08/20/2025 12:19 PM EDT)ComponentValueRef RangeTest MethodAnalysis TimePerformed AtPathologist SignatureRHEUMATOID FACTOR (RF)12.1 <14.0 IU/mLTBHComment: Performed at: ??[address] ??[id number] Manager Library: Cody Williamson PhD, Phone: ??[phone] Specimen (Source)Anatomical Location / LateralityCollection Method / Volume Collection TimeReceived Time08/20/2025 12:19 PM EDT1 12:41 PM EDT Narrative CLINISYNC - 08/21/2025 10:08 AM EDT Authorizing ProviderResult TypeResult StatusBalta Milton PACLINISYNCFinal ResultPerforming OrganizationAddressty/State/ZIP CodePhone Number [facility] * ALL C REACTIVE PROTEIN (08/20/2025 12:19 PM EDT)ComponentValueRef RangeTest MethodAnalysis TimePerformed AtPathologist SignatureC REACTIVE PROTEIN<0.50 <=0.50 mg/dLTBHSpecimen (Source)Anatomical Location / LateralityCollection Method / VolumeCollection TimeReceived Time08/20/2025 12:19 PM EDT1 12:41 PM EDT Narrative CLINISYNC - 08/20/2025 1:26 PM EDT Authorizing ProviderResult TypeResult StatusBalta Milton PACLINISYNCFinal ResultPerforming OrganizationAddressCity/State/ZIP CodePhone Number [facility] * ALL URIC ACID (08/20/2025 12:19 PM EDT)ComponentValueRef RangeTest Method Analysis TimePerformed AtPathologist SignatureURIC ACID5.22.6 - 6.0 mg/dLTBH Specimen (Source)Anatomical Location / LateralityCollection Method / Volume Collection TimeReceived Time08/20/2025 12:19 PM EDT1 12:41 PM EDT Narrative CLINISYNC - 08/20/2025 1:26 PM EDT Authorizing ProviderResult TypeResult StatusBalta Milton PACLINISYNCFinal ResultPerforming OrganizationAddPhysicians Care Surgical Hospitalty/State/ZIP CodePhone Number [facility] * (ABNORMAL) ALL SED RATE (08/20/2025 12:19 PM EDT)ComponentValueRef RangeTest MethodAnalysis TimePerformed AtPathologist SignatureTBH SED RATE44(H)<=30 mm/hrTBHSpecimen (Source)Anatomical Location / LateralityCollection Method / VolumeCollection TimeReceived Time08/20/2025 12:19 PM EDT1 12:41 PM EDT Narrative CLINISYNC - 08/20/2025 1:26 PM EDT Authorizing ProviderResult TypeResult StatusBalta Milton PACLINISYNCFinal ResultPerforming OrganizationAddressty/State/ZIP CodePhone Number [facility] * (ABNORMAL) ALL CBC WITH AUTO DIFF (08/20/2025 12:19 PM EDT)ComponentValueRef RangeTest MethodAnalysis TimePerformed AtPathologist SignatureTBH WBC8.34.0 - 11.0 10 3/uLTBHTBH RBC4.454.20 - 5.40 10 6/uLTBHTBH HGB13.412.0 - 16.0 g/dLTBH TBH HCT41.136.0 - 48.0 %TBHTBH MCV92.481.0 - 99.0 fLTBHTBH MCH30.126.7 - 34.0 pgTBHTBH MCHC32.629.9 - 35.2 g/dLTBHTBH RDW14.011.0 - 15.0 %TBHTBH WIV948773 - 450 10 3/uLTBHTBH MPV10.29.5 - 13.5 [...] StatusMatthepetrona Milton PACLINISYNCFinal ResultPerforming OrganizationAddressCity/State/ZIP CodePhone Number [facility] documented in this encounter Visit Diagnoses Not on filedocumented in this encounter Care Teams Team MemberRelationshipSpecialtyStart DateEnd Date Grace Dyer MD [address] [facility] [place] [address] PCP - GeneralFamily Medicine05/21/23 Britni Parry DO [address] [place] [address] Referring PhysicianNeurology01/14/25documented as of this encounter
--- OUTSIDE RECORDS SUMMARY | 2025-09-01 14:01 | XMS_ITS | Encounter Summary ---
Author Organization [facility] Address [address] [place] [address] Care Team Providers Care Advanced Manager Name Role Phone Grace Dyer MD Primary Care Provider [phone] Britni Parry DO Unavailable [phone] Encounter Details DateTypeDepartmentCare Team (Latest Contact Info)Dsjbxihziuy79/17/2025amboo flowsheet [facility] [address] [place] [address] Balta Milton PA [address] [place] [address] Social History Tobacco UseTypesPacks/DayYears UsedDateSmoking Tobacco: NeverSmokeless Tobacco: NeverAlcohol UseStandard Drinks/WeekCommentsNot Currently0 (1 standard drink = 0.6 oz pure alcohol)CommentsUnknownSex and Gender InformationValueDate RecordedSex Assigned at BirthNot on fileLegal HxyDfzvqz79/15/2023 8:13 PM EDT Gender IdentityNot on fileSexual OrientationNot on filedocumented as of this encounter Plan of Treatment DateTypeDepartmentCare Team (Latest Contact Info)Azmixpnuilm77/31/2025 10:45 AM EDTOffice Visit [facility] [address] [place] [address] Balta Milton PA [address] [place] [address] documented as of this encounter Visit Diagnoses Not on filedocumented in this encounter Care Teams Team MemberRelationshipSpecialtyStart DateEnd Date Grace Dyer MD [address] [place] [address] PCP - GeneralFamily Medicine05/21/23 Britni Parry DO [address] [place] [address] Referring PhysicianNeurology01/14/25documented as of this encounter
--- OUTSIDE RECORDS SUMMARY | 2025-09-01 14:01 | XMS_ITS | Clinical Summary ---
Author Organization [facility] Address [address] [place] [address] Care Team Providers Care Campus Chaplain Name Role Phone Grace Dyer MD Primary Care Provider [phone] Allergies Active AllergyReactionsCriticalityNoted OiinTfvceneoUwerulsvKhhoawh28/14/2021 MtyncmtebawAifg45/15/2021Oxycodone-AcetaminophenGI Upset10/09/2005Sulfa DyneRash 09/17/20121013RqpzedhablfJlmsTwn55/27/2018 Medications MedicationSigDispense QuantityRefillsLast FilledStart DateEnd DateStatus MULTIVITAMIN [...] 2 TABLETS BY MOUTH ONCE DAILY OR FJNNRJMW04/31/2022ctive aspirin, enteric coated (ASPIRIN, ENTERIC COATED) 81 mg EC tablet Take 81 mg by mouth once daily.Active HYDROcodone-acetaminophen (NORCO) 5-325 mg per tablet 02/13/2022ctive Active Problems ProblemNoted DateDiagnosed DateOpen wound of abdominal wall, anterior, pgyzjbwntzq83/28/2005Personal history of malignant neoplasm of zilslz2908/13/2005 Malignant neoplasm of upper-outer quadrant of female breastHip joint replacement by other means Immunizations ImmunizationAdministration DatesNext DueCOVID-19 vaccine, unspecified ztyjsjyqjnu68/09/2021,12/12/2020influenza (IIV3) vaccine, trivalent (AFLURIA, FLULAVAL, FLUVIRIN, FLUZONE)08/04/2019influenza (aIIV3) vaccine, age 65+ yr, trivalent, PF (FLUAD)08/21/2021novel influenza (L7Q4-99) vaccine, PF09/10/2009 pneumococcal polysaccharide (PPV23) vaccine, 23 valent (PNEUMOVAX 23)06/12/2021 Family History Medical HistoryRelationCommentsDiabetesFatherHypertensionFatherBreast Cancer Maternal GrandmotherRelationStatusCommentsBrother 1AliveBrother 2AliveBrother 3 AliveFatherDeceasedMaternal GrandmotherMotherDeceasedSister 1AliveSister 2Alive Sister 3AliveSister 4AliveSister 5AliveSister 6Alive Social History Tobacco UseTypesPacks/DayYears UsedDateSmoking Tobacco: SqzbghVejbxyersd44 Smokeless Tobacco: NeverAlcohol UseStandard Drinks/WeekCommentsYes0 (1 standard drink = 0.6 oz pure alcohol)Area Deprivation IndexAnswerDate RecordedNational Score (1-100), lower number is lower odad716502/21/2023State Score (1-10), lower number is lower riskNot on file3Data from: https://www.neighborhoodatlas.medicine.[facility].edu/. Last address used for vzrbwzgnz[address]3CommentsNoSex and Gender Information ValueDate RecordedSex Assigned at BirthNot on fileLegal TzcHrgifv39/02/2012 10:05 AM ESTGender IdentityNot on fileSexual OrientationNot on file Last Filed Vital Signs Vital SignReadingTime TakenCommentsBlood Ghzwhyrx991/8504 11:07 AM EDT Uaybk8749 11:07 AM ZFCUnfyigkgire52.3 ??C (97.4 ??F)02/15/2022 11:07 AM EDTRespiratory Oapi249402/15/2022 11:07 AM EDTOxygen Nnhymgaokx20%02/15/2022 11:07 AM EDTInhaled Oxygen Concentration--Pghgon68.1 kg (192 lb)02/15/2022 11:07 AM EDTverbal per wkMxoxbx509.2 cm (5' 7.01 )02/15/2022 11:07 AM EDTBody Mass Index 30.0602/15/2022 11:07 AM EDT Plan of Treatment Health MaintenanceDue DateLast DoneCommentsAnxiety Kqxtidlgs75/18/1974Depression Cgauftrpn15/18/1974Hepatitis C Hnmpkkkmw53/18/1974DTaP,Tdap,Td Vaccine (1 - Tdap)1974Mammogram Oslqfwxkz16/18/1996CT Jqfbhnkhcgtu34/18/2001Cologuard (FIT-DNA)11/21/20002595Yfnjufgtlvo39/18/2001Colorectal Cancer Evaldkbir99/18/2001 Fecal Occult Blood2000Lipid Olspfttfp38/18/8948Gfpinkffdehof47/18/2001 Shingrix Vaccine (1 of 2)2005Bone Density Beabnhdwk82/18/2021neumococcal Vaccine: 50+ (2 of 2 - PCV)/dvance Directive Discussion 11/04/2024Diabetes Qarceckrf52, 01/26/2014, 08/23/2006, Additional history existsCovid-19 Vaccine ( season)2025 08/28/2021, 01/10/2021, 12/12/2020Influenza Vaccine (#1), 08/04/2019, 09/10/2009RSV Vaccine (1 - 1-dose 75+ series)2030 Procedures Procedure NamePriorityDate/TimeAssociated DiagnosisCommentsCOMPREHENSIVE METABOLIC IEWOSPwijqqu54/14/2022 11:01 AM EDT Malignant neoplasm of upper-outer quadrant of left breast in female, estrogen receptor positive (HCC) from Last 3 Months or Most Recently Relevant to Health Maintenance Results * (ABNORMAL) COMP METABOLIC PANEL (02/15/2022 11:01 AM EDT)ComponentValueRef RangeTest MethodAnalysis TimePerformed AtPathologist SignatureProtein, Total 7.16.3 - 8.0 g/dL02/15/2022 11:32 AM [facility] Albumin4.53.9 - 4.9 g/dL02/15/2022 11:32 AM EDSUMMERSV[facility] LABCalcium, Total9.78.5 - 10.2 mg/dL02/15/2022 11:32 AM [facility] LABBilirubin, Total1.10.2 - 1.3 mg/dL02/15/2022 11:32 AM [facility] LABAlkaline Yxhdpfvrtfi8122 - 123 U/L 02/15/2022 11:32 AM [facility] COKSYU9139 - 35 U/L 02/15/2022 11:32 AM [facility] UAMTDM123 - 38 U/L 02/15/2022 11:32 AM [facility] TWIMsoykcq839(H)74 - 99 mg/dL02/15/2022 11:32 AM [facility] LABComment: The [place] Diabetes Association (ADA) provides guidance for cutoff [...] Standards of Medical Care in Diabetes 2016, [place] Diabetes Association. Diabetes Care. 2016.39(Suppl 1). BUN23(H)7 - 21 mg/dL02/15/2022 11:32 AM EDTNORTHCO[facility]LEXI [facility] Creatinine0.820.58 - 0.96 mg/dL02/15/2022 11:32 AM [facility] WYWBlkjxz392(L)136 - 144 mmol/L02/15/2022 11:32 AM [facility] LABPotassium3.93.7 - 5.1 mmol/L02/15/2022 11:32 AM [facility] GIIFnfnewoa38305 - 105 mmol/L02/15/2022 11:32 AM EDT [facility] CIEAM12421 - 30 mmol/L02/15/2022 11:32 AM EDT [facility] LABAnion Gap99 - 18 mmol/L02/15/2022 11:32 AM TSTEV[facility] LABEstimated Glomerular Filtration Rate79 >=60 mL/min/1.73m 02/15/2022 11:32 AM [facility] LABComment:Estimated Glomerular Filtration Rate (eGFR) is [...] VolumeCollection TimeReceived TimeBloodBLOOD SPECIMEN / UnknownVenipuncture / Ikfrsyx0102/15/2022 11:01 AM EDT02/15/2022 11:01 AM EDT Narrative Authorizing ProviderResult TypeResult StatusBrjordan Corbin MDLABORATORY Final ResultPerforming OrganizationAddressCity/State/ZIP CodePhone Number [facility] [address] [place] [address] from Last 3 Months or Most Recently Relevant to Health Maintenance Insurance MemberSubscriberPlan / Payer (Effective 2020-Present)Name:Uzma Ramirez Member ID:[id number] Relation to Subscriber:SelfName:Uzma Ramirez Subscriber ID:[id number] Payer ID:Not on file Group ID:Not on file Type:Medicare Address: [facility] [place] [phone] * Guarantor: Uzma Ramirez TypeRelation to PatientDate of BirthPhone Billing AddressSelf NtyBlvo99 1955 [address] [place] [address] Care Teams Team MemberRelationshipSpecialtyStart DateEnd Grace Dyer MD [address] [facility] [facility] [place] [place] [address] PCP - GeneralFamily Medicine01/26/14
--- OUTSIDE RECORDS SUMMARY | 2025-09-01 14:01 | XMS_ITS | Encounter Summary ---
Author Organization [facility] Address [address] [place] [address] Care Team Providers Care Basin Operator Name Role Phone Grace Dyer MD Primary Care Provider [phone] Britni Parry DO Unavailable [phone] Encounter Details DateTypeDepartmentCare Team (Latest Contact Info)Dqvhengmtki41/21/2025Results Follow-Up [facility] [address] [place] [address] Balta Milton PA [address] [place] [address] ALL CBC WITH AUTO DIFF, ALL SED RATE, ALL URIC ACID, Additional followed-up results: 6 Social History Tobacco UseTypesPacks/DayYears UsedDateSmoking Tobacco: NeverSmokeless Tobacco: NeverAlcohol UseStandard Drinks/WeekCommentsNot Currently0 (1 standard drink = 0.6 oz pure alcohol)CommentsUnknownSex and Gender InformationValueDate RecordedSex Assigned at BirthNot on fileLegal BqoQsvrgo08/15/2023 8:13 PM EDT Gender IdentityNot on fileSexual OrientationNot on filedocumented as of this encounter Plan of Treatment DateTypeDepartmentCare Team (Latest Contact Info)Nuqczgmxeav35/31/2025 10:45 AM EDTOffice Visit [facility] [address] [address] Balta Milton PA [address] [place] [address] documented as of this encounter Visit Diagnoses Not on filedocumented in this encounter Care Teams Team MemberRelationshipSpecialtyStart DateEnd Date Grace Dyer MD [address] [place] [address] PCP - GeneralFamily Medicine05/21/23 Britni Parry DO [address] [place] [address] Referring PhysicianNeurology01/14/25documented as of this encounter
--- OUTSIDE RECORDS SUMMARY | 2025-09-01 14:01 | XMS_ITS | Clinical Summary ---
Author Organization [facility] Address [address] [place] [address] Phone Care Team Providers Care Head Of Academic Technology Name Role Phone Grace Dyer MD Primary Care Provider [phone] Allergies Active AllergyReactionsCriticalityNoted DateCommentsOxycodone-Acetaminophen Hpwtscm5606/26/20236859BnrdjmfyqgpYotxqve22/23/7102BkxpmeUittqsr87/23/2023Terbinafine Czmhlby5406/26/2023 Medications MedicationSigDispense QuantityRefillsLast FilledStart DateEnd DateStatus alendronate [...] (10 mg) by mouth once daily. OR HNSEXACD00/31/2022ctive rosuvastatin (Crestor) 40 mg tablet Take 1 tablet (40 mg) by mouth once daily.05/31/2022ctive zolpidem (Ambien) 10 mg tablet Take 1 tablet (10 mg) by mouth as needed at bedtime.05/31/2022ctive Active Problems ProblemNoted DateDiagnosed DateEssential sgcqykmqabnh59/23/2023Hyperlipidemia, avhbjumllas68/23/2023Sinus scpanfydafr18/23/7778Tohtbxcctw58/23/2023 Immunizations ImmunizationAdministration DatesNext DueInfluenza, Cxbkfqjrmfp84/01/2019, 08/04/2018,08/04/2017,09/10/2009Influenza, trivalent, vwouddnauz13/18/2021 Moderna COVID-19 vaccine, bivalent, blue cap/robertson label *Check age/dose* 10/17/2022Novel zyyespigw-I4S7-10, preservative-free09/10/2009Pneumococcal polysaccharide vaccine, 23-valent, age 2 years and older (PNEUMOVAX 23) 06/12/2021 Family History Medical HistoryRelationNameCommentsHypertensionBrotherHypertensionFather HypertensionSisterMYCARDIAL INFARCTIONSisterACUTEOtherSisterH/O HEART ARTERY STENTRelationNameStatusCommentsBrotherFatherSister Social History Tobacco UseTypesPacks/DayYears UsedDateSmoking Tobacco: Never Assessed Tobacco Cessation:Counseling Given: Not Answered CommentsUnknownSex and Gender InformationValueDate RecordedSex Assigned at BirthNot on fileLegal WfuTqmlwt46/26/2022 8:46 PM ESTGender IdentityNot on fileSexual OrientationNot on file Last Filed Vital Signs Vital SignReadingTime TakenCommentsBlood Sqbcexml344/7809 1:49 PM EDT Ilubv9204 1:49 PM EDTTemperature--Respiratory Rate--Oxygen Saturation-- Inhaled Oxygen Concentration--Weight--Cdmisc479.6 cm (5' 6 )07/20/2022 1:49 PM EDTBody Mass Index-- Plan of Treatment Health MaintenanceDue DateLast DoneCommentsCT Qfhyuznppolh76/18/1956Colonoscopy 1955olorectal Cancer Zwyntovel56/18/1956FIT-DNA (Cologuard)1955FIT 1955Lipid Panel1955 5239Opusvdjybuzot43/18/1956Hepatitis C Screening 1973DTaP/Tdap/Td Vaccines (1 - Tdap)1977Zoster [...] Ramirez TypeRelation to PatientDate of BirthPhone Billing AddressPersonal/NytyoyOgku98/18/1956 [facility] [place] [address] Care Teams Team MemberRelationshipSpecialtyStart DateEnd Date Grace Dyer MD [address] [place], [place] [address] [facility] - [facility]11/04/20
--- OUTSIDE RECORDS SUMMARY | 2025-09-01 14:01 | XMS_ITS | Clinical Summary ---
Author Organization [facility] Address [address] [place] [address] Care Team Providers Care Cleaning Technician Name Role Phone Grace Dyer MD Primary Care Provider [phone] Britni Parry DO Unavailable Allergies Active AllergyReactionsCriticalityNoted DateCommentsFentanylUnknownHigh 02/15/2021 Leg Weakness Oxycodone-AcetaminophenGI ndasepsnujo21/06/0863RofiwpobaoxQpepDcq69/15/2021ulfa LnlmcqsxcqoNzofXcs25/18/1271IrtmauilmfoGwuxPxp14/27/2018 Medications MedicationSigDispense QuantityRefillsLast FilledStart DateEnd DateStatus aspirin [...] at bedtime 30 tablet 5Active predniSONE (Deltasone) 5 MG tablet Take 5 mg by mouth in the morning./Discontinued predniSONE (Deltasone) 20 MG tablet Indications:Acute right hip pain,Acute pain of left shoulder,PolyarthralgiaTake 2 tablets (40 mg) by mouth Daily for 5 days, THEN 1 tablet (20 mg) Daily for 5 days. Take withfood. 15 tablet Expired traMADol (Ultram) 50 MG tablet Indications:Acute right hip pain,Acute pain of left shoulder,PolyarthralgiaTake 1 tablet (50 mg) by mouth every 8 (eight) hours if needed for severe pain for up to 4 days 12 tablet /Expired Active Problems ProblemNoted DateDiagnosed DateArtificial knee joint lfduxdu7606/18/2023Internal derangement of left knee06/18/2023Malignant neoplasm of upper-outer quadrant of female mufxud5006/18/2023Osteoarthritis of knee06/18/2023Status post total left knee hpgecdqizsg90/15/2023Open wound of abdominal wall, anterior, complicated 10/01/2005Personal history of malignant neoplasm of nxsync4008/13/2005 Encounters DateTypeDepartmentCare KhjgUyjpzqcqepi87/22/2025Telephone [facility] [address] [place] [address] Balta Milton PA 08/24/2025Results Follow-Up [facility] [address] [place] [address] Balta Milton PA ALL CBC WITH AUTO DIFF, ALL SED RATE, ALL URIC ACID, Additional followed-up results: 9:30 AM EDTAncillary Procedure [place] [address] [place] [address] 08/20/2025 9:15 AM EDTOffice Visit [place] [address] [place] [address] Balta Milton PA Acute right hip pain (Primary Dx); History of total right hip replacement; Right hip pain; Acute pain of left shoulder; Aotmwuadraazxl23/17/2025linisync Result Encounter [facility] Unsolicited Balta Milton PA 08/20/2025amboo flowsheet [facility] [address] [address] Balta Milton PA 08/20/2025Travelfrom Last 3 Months Immunizations ImmunizationAdministration DatesNext DueInfluenza, seasonal, injectable 08/04/2019Influenza, trivalent, ygfcebgxgx66/18/2021Moderna Bivalent Booster Tcbvqrhdexx39/14/2022Novel cbwwbgrps-T0N1-39, preservative-free09/10/2009 Pneumococcal Polysaccharide [id number]-KbW-1, Chmjpvhukbz34/09/2021, 12/12/2020 Family History Medical HistoryRelationNameCommentsHypertensionFatherEmphysemaMotherHypertension MotherRelationNameStatusCommentsBrother1 brotherDaughterAlive2 daughtersFather DeceasedMotherDeceasedMother's SisterAliveSister2 sistersSonAlive2 sons Social History Tobacco UseTypesPacks/DayYears UsedDateSmoking Tobacco: NeverSmokeless Tobacco: Never Tobacco Cessation:Counseling Given: Not Answered Alcohol UseStandard Drinks/WeekCommentsNot Currently0 (1 standard drink = 0.6 oz pure alcohol)CommentsUnknownSex and Gender InformationValueDate Recorded Sex Assigned at BirthNot on fileLegal AoiBsfeee57/15/2023 8:13 PM EDTGender IdentityNot on fileSexual OrientationNot on file Last Filed Vital Signs Vital SignReadingTime TakenCommentsBlood Aihkdwqc426/9304 11:14 AM EDT Smvuw707902/16/2025 11:14 AM EDTTemperature--Respiratory Rate--Oxygen Saturation 95%01/14/2025 11:17 AM EDTInhaled Oxygen Concentration--Qcjgco65.7 kg (189 lb) 02/16/2025 11:14 AM BECWdwypd535.6 cm (5' 6 )02/16/2025 11:14 AM EDTBody Mass Index30.51002/16/2025 11:14 AM EDT Plan of Treatment DateTypeDepartmentCare Team (Latest Contact Info)Jcmafqychiy91/31/2025 10:45 AM EDTOffice Visit [facility] [address] [place] [address] Balta Milton PA [address] [place] [address] Procedures Procedure NamePriorityDate/TimeAssociated DiagnosisCommentsANTINUCLEAR ANTIBODIES, OPTKwjqzei57/17/2025 12:19 PM EDT ALL MISCELLANEOUS XCUEElhgubb36/17/2025 12:19 PM EDT ALL MISCELLANEOUS LLDNKlvdpei82/17/2025 12:19 PM EDT LYME DISEASE SEROLOGY W/OFPNWJKtmkuzj12/17/2025 12:19 PM EDT [facility] RHEUMATOID SAJQCEWewqrsl96/17/2025 12:19 PM EDT ALL C REACTIVE JKNSKYXAxuszwp46/17/2025 12:19 PM EDT ALL URIC HXCZIqoecwe69/17/2025 12:19 PM EDT ALL SED KBJIErifhgf78/17/2025 12:19 PM EDT ALL CBC WITH AUTO ZPNCZjlrxkr44/17/2025 12:19 PM EDT XR HIP 2 OR 3 VW UTOKZYewbbcn32/17/2025 9:28 AM EDT Right hip pain from [...] ? Myositis Overlap Syndrome, Systemic Lupus ? Catnczgrhqbrh-Cmafoydonkq-Fqtrpgxlac ? Myositis Overlap Syndrome, Systemic ? Autoimmune [...] Linear Scleroderma, Antiphospholipid Syndrome ?? Performed at: ??[address] ??[id number] Brick Wheeler: Cody Williamson PhD, Phone: ??[phone] Specimen (Source)Anatomical Location / LateralityCollection Method / Volume Collection TimeReceived Time08/20/2025 12:19 PM EDT1 12:41 PM EDT Narrative CLINISYNC - 08/24/2025 6:09 PM EDT Authorizing ProviderResult TypeResult StatusMakettering health [facility] bitHound [facility] BLOOD ORDERABLESFinal ResultPerforming OrganizationAddTyler [facility] CodePhone Number [facility] * LYME DISEASE SEROLOGY W/REFLEX (08/20/2025 [...] to 14 days is recommended. Performed at: ??[address] ??[id number] [place]: Cody Williamson PhD, Phone: ??[phone] Specimen (Source)Anatomical Location / LateralityCollection Method / Volume Collection TimeReceived Time08/20/2025 12:19 PM EDT1 12:41 PM EDT Narrative CLINISYNC - 08/21/2025 12:08 PM EDT Authorizing ProviderResult TypeResult StatusMattBeacon [facility] BLOOD ORDERABLESFinal ResultPerforming OrganizationAddUPMC [facility] Pittsburghty/State/ZIP CodePhone Number [facility] * [facility] RHEUMATOID FACTOR (08/20/2025 12:19 PM EDT)ComponentValueRef RangeTest MethodAnalysis TimePerformed AtPathologist SignatureRHEUMATOID FACTOR (RF)12.1 <14.0 IU/mLTBHComment: Performed at: ?? - [facility] [address] ??[id number] [place]: Cody Williamson PhD, Phone: ??[phone] Specimen (Source)Anatomical Location / LateralityCollection Method / Volume Collection TimeReceived Time08/20/2025 12:19 PM EDT1 12:41 PM EDT Narrative CLINISYNC - 08/21/2025 10:08 AM EDT Authorizing ProviderResult TypeResult StatusBalta Milton PACLINISYNCFinal ResultPerforming OrganizationAddUPMC [facility] Pittsburghty/State/ZIP CodePhone Number [facility] * ALL URIC ACID (08/20/2025 12:19 PM EDT)ComponentValueRef RangeTest Method Analysis TimePerformed AtPathologist SignatureURIC ACID5.22.6 - 6.0 mg/dLTBH Specimen (Source)Anatomical Location / LateralityCollection Method / Volume Collection TimeReceived Time08/20/2025 12:19 PM EDT1 12:41 PM EDT Narrative CLINISYTN - 08/20/2025 1:26 PM EDT Authorizing ProviderResult TypeResult StatusBalta Milotn PACLINISYNCFinal ResultPerforming OrganizationAddUPMC [facility] Pittsburghty/State/ZIP CodePhone Number [facility] * (ABNORMAL) ALL SED RATE (08/20/2025 12:19 PM EDT)ComponentValueRef RangeTest MethodAnalysis TimePerformed AtPathologist SignatureTBH SED RATE44(H)<=30 mm/hrTBHSpecimen (Source)Anatomical Location / LateralityCollection Method / VolumeCollection TimeReceived Time08/20/2025 12:19 PM EDT1 12:41 PM EDT Narrative CLINISYNC - 08/20/2025 1:26 PM EDT Authorizing ProviderResult TypeResult StatusBalta Milton PACLINISYNCFinal ResultPerforming OrganizationAddressCity/State/ZIP CodePhone Number CLINISYTN TB * ALL MISCELLANEOUS TEST (08/20/2025 12:19 PM EDT) Only the most recent of2 resultswithin the time period is included. ComponentValueRef RangeTest MethodAnalysis TimePerformed AtPathologist Signature MISCELLANEOUS TESTCOMMENT.TBHComment: Test Ordered: [id number] Ceron Antibodies Ceron Antibodies <0.2 AI CB ?? Reference Range: 0.0-0.9 Performed at: ??CB - [facility] [address] ??[id number] [place]: Cody Williamson PhD, Phone: ??[phone] Specimen (Source)Anatomical Location / LateralityCollection Method / Volume Collection TimeReceived Time08/20/2025 12:19 PM EDT1 12:41 PM EDT Narrative CLINISYNC - 08/23/2025 4:09 PM EDT [id number] Ceron Antibodies Authorizing ProviderResult TypeResult StatusMatthepetrona Milton PACLINISYNCFinal ResultPerforming OrganizationAddressCity/State/ZIP CodePhone Number [facility]INBLANCH[facility] * (ABNORMAL) ALL CBC WITH AUTO DIFF (08/20/2025 12:19 PM EDT)ComponentValueRef RangeTest MethodAnalysis TimePerformed AtPathologist SignatureTBH WBC8.34.0 - 11.0 10 3/uLTBHTBH RBC4.454.20 - 5.40 10 6/uLTBHTBH HGB13.412.0 - 16.0 g/dLTBH TBH HCT41.136.0 - 48.0 %TBHTBH MCV92.481.0 - 99.0 fLTBHTBH MCH30.126.7 - 34.0 pgTBHTBH MCHC32.629.9 - 35.2 g/dLTBHTBH RDW14.011.0 - 15.0 %TBHTBH NKH899577 - 450 10 3/uLTBHTBH MPV10.29.5 - 13.5 [...] PM EDT 08/20/2025 12:41 PM EDT Narrative CLINISYTN - 08/20/2025 1:17 PM EDT Authorizing ProviderResult TypeResult StatusMaclifton Milton PACLINISYNCFinal ResultPerforming OrganizationAddressCity/State/ZIP CodePhone Number [facility] * ALL C REACTIVE PROTEIN (08/20/2025 12:19 PM EDT)ComponentValueRef RangeTest MethodAnalysis TimePerformed AtPathologist SignatureC REACTIVE PROTEIN<0.50 <=0.50 mg/dLTBHSpecimen (Source)Anatomical Location / LateralityCollection Method / VolumeCollection TimeReceived Time08/20/2025 12:19 PM EDT1 12:41 PM EDT Narrative CLINISYTN - 08/20/2025 1:26 PM EDT Authorizing ProviderResult TypeResult StatusMaclifton Milton PACLINISYNCFinal ResultPerforming OrganizationAddressty/State/ZIP CodePhone Number [facility]ANABLANCHARD [facility] * XR hip right 2 or 3 [...] DateEnd Date Grace Dyer MD [address] [facility] [place] [address] PCP - GeneralFamily Medicine05/21/23 Britni Parry DO [address] [place] [address] Referring PhysicianNeurology01/14/25
--- OUTSIDE RECORDS SUMMARY | 2025-09-01 14:01 | XMS_ITS | Clinical Summary ---
Author Organization [employer] Address [id number] [address] [place] [address] Care Team Providers Care Rim Fire Priming Operator Name Role Phone Grace Dyer MD Primary Care Provider [phone] Allergies Active AllergyReactionsCriticalityNoted DateCommentsFentanylOther (See Comments) High02/15/2021 Leg Weakness NcebtkftfpvYgkeAri79/27/2018Oxycodone-AcetaminophenGI Lkkgbqybeqn65/06/2005 UyqjcgehoobHvipDom95/15/2021ulfa XcroMnfaDel21/14/2012 Medications MedicationSigDispense QuantityRefillsLast FilledStart DateEnd DateStatus multivitamin [...] standard drink = 0.6 oz pure alcohol)rarelyChildcareAnswerDate DmdifveoShdsdadwiLlfibma23/12/2019Employment AnswerDate SimocchcOzeysoslmqDtqbigt17/12/2019Hunger ScreeningAnswerDate RecordedWithin the past 12 months we worried whether our food would run out before we got money to buy more.Never True09/16/2024Within the past 12 months the food we bought just didn't last and we didn't have money to get more.Never True4Purpose - LifeAnswerDate RecordedPurpose and direction in life Onajujw73/11/2021CommentsNoSex and Gender InformationValueDate Recorded Sex Assigned at BirthNot on fileLegal EigSqgikd41/06/2015 12:11 PM EDTGender IdentityNot on fileSexual OrientationNot on file Last Filed Vital Signs Vital SignReadingTime TakenCommentsBlood Ltbbfxgm113/7510 9:22 AM EDT Ruhyk101309/02/2024 9:22 AM XXVQwvtzlrtjfw15.1 ??C (98.7 ??F)07/21/2023 12:39 PM EDTRespiratory Tttk600607/21/2023 1:16 PM EDTOxygen Apfrubzcoz59%07/21/2023 1:16 PM EDTInhaled Oxygen Concentration--Vjbvgu37.7 kg (186 lb 11.2 oz)09/16/2024 10:42 AM SMCFuckeh181.2 cm (5' 7 )09/02/2024 9:22 AM EDTBody Mass Index29.24 09/02/2024 9:22 AM EDT Plan of Treatment Health MaintenanceDue DateLast DoneCommentsDepression Waztwwwby39/18/1968Adult BMI Follow Up Plan1973DTaP,Tdap and Td Vaccines (1 - Tdap)1974Zoster (Shingles) Vaccine (1 of 2)2005Fall Risk Nycujznto73/18/2021Colonoscopy /OVID-19 Vaccine ( season)/, 08/28/2021, 01/10/2021, Additional history existsInfluenza Ntolwcq5107/05/2025 08/21/2021, 08/04/2019, 08/04/2018, Additional history existsAdult BMI Screening /Tobacco Ehuaohefu33 Goals GoalPatient Goal TypeAssociated ProblemsRecent ProgressPatient-Stated?Author Home with [facility] Swapna Lagunas LSW Note: Evaluation of progress towards goal: Home with family support and [facility] PT services Medical Devices ImplantedTypeAreaManufacturerDevice IdentifierShelf Expiration DateModel / Serial / LotCement Bn Bio 40gm Rpl [id number] - Sn/A - [id number] Implanted:Qty: 1 on 06/25/2023 by [facility]k Adrian Jr[facility] KneeZimmer [id number] / N/A / [id number] Bn Bio 40gm Rpl [id number] - Sn/A - [id number] Implanted:Qty: 1 on 06/25/2023 by rAik Adrian Jr[facility] KneeZimmer [id number] / N/A / [id number] Artc 3-4 E-F 10mm Kn Fx Brng Prlng Nxgn Lpsflx Strl Lpsflx Rpl [id number] + [id number] - Sn/A - [id number] Implanted:Qty: 1 on 06/25/2023 by Arik Adrian Jr., DO at [facility] ImplantRight: KneeZimmer Biomet [id number] / N/A / [id number] Fem E Kn Rt Lpsflx Gndr Melissa? Nxgn Cocr Rpl [id number] - Sn/A - [id number] Implanted:Qty: 1 on 06/25/2023 by Arik Adrian Jr., DO at [facility] ImplantRight: KneeZimmer Biomet [id number]/22/465324-2123-176-68 / N/A / [id number] Ptlr 32mm Persona Alply Kn Strl Lf - Sn/A - [id number] Implanted:Qty: 1 on 06/25/2023 by Arik Adrian Jr., DO at [facility] ImplantRight: KneeZimmer Ozywsa0802/24/2028 [id number] / N/A / [id number] Tib 73u98gw Nxgn Kn Cmnt Mdlr Stm Prect 4 Tiv Pmma Rpl [id number] + 268974 - Sn/A - [id number] Implanted:Qty: 1 on 06/25/2023 by [facility]k Adrian Jr., [facility] KneeZimmer [id number] 17-9983-735-02 / N/A / [id number]zpbtfYeffrg IdentifierShelf Expiration DateModel / Serial / LotScrew Gd 48mm Qd-Spr Hex Hd Mis Strl - [id number] - [id number] Explanted:Qty: 1 on 06/25/2023 [facility] KneeZier [id number] / / [id number] Gd 48mm Qd-Spr Hex Hd Mis Strl - [id number] - [id number] Explanted:Qty: 1 on 06/25/2023 by [facility] KneeZimmer [id number] / / [id number] Bn 35mm 6.5mm St Hip Actb Trlg Strl Rpl [id number]+32 - [id number] - [id number] Explanted:Qty: 1 on 06/25/2023 by [facility]k Adrian Jr[facility] KneeZier [id number] / [id number] / [id number] Bn 35mm 6.5mm St Hip Actb Trlg Strl Rpl [id number]+[id number]+32 - [id number] - [id number] Explanted:Qty: 1 on 06/25/2023 by Arik Adrian Jr[facility]: KneeJahmmtricia [id number] / [id number] / [id number] Procedures Procedure NamePriorityDate/TimeAssociated DiagnosisCommentsCOLONOSCOPYRoutine 02/05/2024 History of colon polyps from Last 3 Months or Most Recently Relevant to Health Maintenance Results * Colonoscopy (02/05/2024) Narrative Authorizing ProviderResult TypeResult StatusJefarida Bean INSIDE CONTRACTOR SALES-[facility]ENTERGI PROCEDURE ORDERABLESFinal ResultPerforming OrganizationAddressCity/State/ZIP CodePhone Number MANUALLY TRANSCRIBED RESULTS from Last 3 Months or Most Recently Relevant to Health Maintenance Insurance Advance Directives * Full Code (Latest Code Status on File) Date ActivatedDate InactivatedComments06/24/2023 8:52 PM06/26/2023 3:54 PM Care Teams Team MemberRelationshipSpecialtyStart DateEnd Date Grace Dyer MD [address] [id number] [facility] - General04/30/18
--- OUTSIDE RECORDS SUMMARY | 2025-09-01 14:01 | XMS_ITS | Encounter Summary ---
Author Organization [facility] Address [address] [place] [address] Care Team Providers Care Social Worker Masters Name Role Phone Grace Dyer MD Primary Care Provider [phone] Britni Parry DO Unavailable [phone] Encounter Details DateTypeDepartmentCare Team (Latest Contact Info)Weujbnyfiqd37/17/2025Travel Social History Tobacco UseTypesPacks/DayYears UsedDateSmoking Tobacco: NeverSmokeless Tobacco: NeverAlcohol UseStandard Drinks/WeekCommentsNot Currently0 (1 standard drink = 0.6 oz pure alcohol)CommentsUnknownSex and Gender InformationValueDate RecordedSex Assigned at BirthNot on fileLegal VpxVdjyax56/15/2023 8:13 PM EDT Gender IdentityNot on fileSexual OrientationNot on filedocumented as of this encounter Plan of Treatment DateTypeDepartmentCare Team (Latest Contact Info)Duitaklzpqw51/31/2025 10:45 AM EDTOffice Visit [facility] [address] [place] [address] Balta Milton PA [address] [place] [address] documented as of this encounter Visit Diagnoses Not on filedocumented in this encounter Care Teams Team MemberRelationshipSpecialtyStart DateEnd Date Grace Dyer MD [address] [facility] [place] [address] PCP - GeneralFamily Medicine05/21/23 Britni Parry DO [address] [place] [address] Referring PhysicianNeurology01/14/25documented as of this encounter
--- OUTSIDE RECORDS SUMMARY | 2025-09-01 14:01 | XMS_ITS | Encounter Summary ---
Author Organization [facility] Address [address] [place] [address] Care Team Providers Care Castings Trimmer Name Role Phone Grace Dyer MD Primary Care Provider [phone] Britni Parry DO Unavailable Reason for Referral * Consultation (Routine) - AuthorizedSpecialtyDiagnoses / ProceduresReferred By ContactReferred To ContactRheumatology Diagnoses Polyarthralgia Procedures IN OFFICE/OUTPATIENT [facility] 60 MINUTES Balta Milton PA [address] [place] [address] Phone: tel: fax: Balta Garcia MD [address] [facility] [address] [place] [address] Phone: tel: fax: Referral IDStatusReasonStart DateExpiration DateVisits RequestedVisits [id number] Consult and Treat / Scheduling Instructions Please call pt to schedule. Former pt, but has not followed up in years. Most recent labs at [facility] Encounter Details DateTypeDepartmentCare Team (Latest Contact Info)Tzxoxlkbqez02/22/2025Telephone [facility] [address] [place] [address] Balta Milton PA [address] [place] [address] Social History Tobacco UseTypesPacks/DayYears UsedDateSmoking Tobacco: NeverSmokeless Tobacco: NeverAlcohol UseStandard Drinks/WeekCommentsNot Currently0 (1 standard drink = 0.6 oz pure alcohol)CommentsUnknownSex and Gender InformationValueDate RecordedSex Assigned at BirthNot on fileLegal IoeCjaleg97/15/2023 8:13 PM EDT Gender IdentityNot on fileSexual [...] Plan of Treatment DateTypeDepartmentCare Team (Latest Contact Info)Crvjqyhbbvj90/31/2025 10:45 AM EDTOffice Visit [facility] [address] [place] [address] Balta Milton PA [address] [place] [address] NameTypePriorityAssociated DiagnosesOrder ScheduleAmbulatory referral to RheumatologyOutpatient ReferralRoutine Polyarthralgia Expected: 08/26/2025 (Approximate), Expires: 02/24/2026documented as of this encounter Visit Diagnoses Diagnosis Polyarthralgia- Primary Pain in joint, multiple sites documented in this encounter Care Teams Team MemberRelationshipSpecialtyStart DateEnd Date Grace Dyer MD [address] [place] [address] PCP - GeneralFamily Medicine05/21/23 Britni Parry DO [address] [facility] [place] [address] Referring PhysicianNeurology01/14/25documented as of this encounter
--- NOTE | 2025-09-01 14:03 | MM_ITS ---
Patient Name: MIKE ALFRED MR#: [id number] : 1955 Exam Date: 09/01/2025 Ordering Doctor: DR FLORINDA FLOWERS M.D. RADIOLOGY REPORT PROCEDURE: MM TOMOSYNTHESIS SCREENING BI COMPARISON: MM TOMOSYNTHESIS SCREENING BI, 08/28/2023. MG MAMM SCREEN 3D FAITH CAD, 07/02/2022. MG MAMM SCREEN 3D FAITH CAD, 06/28/2021. MG MAMM RT UNI W CAD DIG, 01/18/2014. INDICATIONS: Screening Calculator Name NCI Breast Cancer Risk Assessment Tool 5 Year Breast Cancer Risk n/a% Lifetime Breast Cancer Risk n/a% Personal Breast Cancer Yes, Lt breast cancer, 2003 Personal Ovarian Cancer No Treatments Lt mastectomy, Radiation, Chemotherapy, Arimidex x 5 years Family Cancers Sister with breast cancer at age 45; Sister with ovarian cancer at age 63; Sister with uterine cancer at age 63. LOCATION: [facility] BREAST COMPOSITION: There are scattered areas of fibroglandular density. FINDINGS: RIGHT BREAST: No significant suspicious finding. LEFT BREAST: No significant suspicious finding. Left mastectomy. DIAGNOSTIC CATEGORY 1--NEGATIVE. RECOMMENDATIONS: ROUTINE MAMMOGRAM AND CLINICAL EVALUATION IN 12 MONTHS. Dictated by: Luis Figueredo DO on 09/01/2025 at 15:07 Approved by: Luis Figueredo DO on 09/01/2025 at 15:09
== END 2025-09-01 14:00 | disposition home or self-care (01) ==
LOC: MAMMO 13:59
PROVIDERS: PCP Family Medicine; Visit Provider Family Medicine
DX: Z12.31 Encounter for screening mammogram for malignant neoplasm of breast (principal); M81.0 Age-related osteoporosis without current pathological fracture; Z80.3 Family history of malignant neoplasm of breast; Z80.41 Family history of malignant neoplasm of ovary; Z80.8 Family history of malignant neoplasm of other organs or systems; Z85.3 Personal history of malignant neoplasm of breast; M85.88 Other specified disorders of bone density and structure, other site
CPT/HCPCS: 77063; 77067; 77080